=== PATIENT | female | born 1980 | race Caucasian/White ===

== ENCOUNTER 2020-05-25 10:12 | Inpatient (IN) | payer MEDICAID, OTHER, SELFPAY ==
[~2020-05-25] VITALS: Ht 154.9 cm; Wt 67.2 kg
[~2020-05-25 10:12] MED LIST: ALPR1TAB3 PO; CARA1TAB6 PO; NAPR-885 PO; TRIA37.53 PO; VITA200028 PO
[2020-05-25] MEDS ORDERED: ONDANSETRON 4MG/2ML VIAL IV ONE (11:00)
[2020-05-25] MEDS ORDERED: HYDR-4517 PO (11:16)
[2020-05-25] MEDS ORDERED: SUMA100T2 PO (11:16)
[2020-05-25] MEDS ORDERED: NS 1,000 ML IV ONE (11:30)
[2020-05-25 11:32] LABS: BASO # 0.1 10^3/uL (0.0-0.2); BASO % 0.6 % (0.0-1.0); HEMATOCRIT 45.7 % (36.0-47.0); HEMOGLOBIN 14.8 g/dl (12.0-15.5); LYMPH % 9.2 % (24.0-44.0); MEAN CORPUSCULAR HEMOGLOBIN 28.5 pg (27.0-33.0); MEAN CORPUSCULAR HGB CONC 32.4 g/dl (32.0-36.5); MEAN CORPUSCULAR VOLUME 88.1 fl (80.0-96.0); MONO # 0.4 10^3/uL (0.0-0.8); MONO % 1.8 % (0.0-5.0); NEUTROPHILS # 19.5 10^3/uL (1.5-8.5); NEUTROPHILS % 87.6 % (36.0-66.0); PLATELET COUNT, AUTOMATED 604 10^3/uL (150-450); RED BLOOD COUNT 5.19 10^6/uL (4.00-5.40); WHITE BLOOD COUNT 22.3 10^3/uL (4.0-10.0)
[2020-05-25 11:53] LABS: ALT/SGPT 16 U/L (12-78); BILIRUBIN,DIRECT < 0.1 MG/DL (0.0-0.2); BILIRUBIN,TOTAL 0.2 MG/DL (0.2-1.0); BLOOD UREA NITROGEN 8 MG/DL (7-18); CALCIUM LEVEL 9.7 MG/DL (8.5-10.1); CARBON DIOXIDE LEVEL 23 MEQ/L (21-32); CHLORIDE LEVEL 106 MEQ/L (98-107); CREATININE FOR GFR 0.93 MG/DL (0.55-1.30); ETHYL ALCOHOL (ETHANOL) 0.007 % (0.000-0.010); GLOMERULAR FILTRATION RATE > 60.0 (>60); GLUCOSE, FASTING 370 MG/DL (70-100); LIPASE 143 U/L (73-393); POTASSIUM SERUM 4.4 MEQ/L (3.5-5.1); SODIUM LEVEL 142 MEQ/L (136-145); TOTAL PROTEIN 8.8 GM/DL (6.4-8.2)
[2020-05-25 11:54] LABS: HCG, SERUM QUALITATIVE NEGATIVE (NEGATIVE)
[2020-05-25] MEDS ORDERED: GI COCKTAIL 50ML BTL(HYOSCYAMINE/MAALOX/LIDOCAINE VISCOUS)(1:3:1) PO ONE (12:00)
[2020-05-25] MEDS ORDERED: HALOPERIDOL 5MG/ML VIAL (J1630 PER 1) IV ONE (12:30)
[2020-05-25] MEDS ORDERED: ISOVUE-370 76% 100ML VIAL As Ordered ONE (12:42)
--- NOTE | 2020-05-25 13:27 | REP ---
INDICATION: abd pain, gastroparesis, hx pancreatitis. COMPARISON: 10/02/2014 TECHNIQUE: 100 cc Isovue 370. No oral bowel preparatory contrast was administered prior to the exam. FINDINGS: The lung bases are clear. The liver, spleen, pancreas, adrenal glands, and left kidney are unchanged and again seen to be within normal limits. Subtle patchy areas of decreased enhancement are seen in the right kidney. This is seen particularly in the lower pole. There is no hydronephrosis or hydroureter. There is no abnormal perinephric stranding. The abdominal aorta and para-aortic regions are within normal limits. There is no free fluid or free air. Limited evaluation of the bowel loops and the mesenteries show no gross abnormalities. The osseous structures are stable and intact. IMPRESSION: Possible early pyelonephritis on the right as described above. <Electronically signed by Jamal Rincon > 05/25/20 1227
[2020-05-25] MEDS ORDERED: HYDR-4514 PO ×2 (14:26)
[2020-05-25 17:02] LABS: BASO # 0.1 10^3/uL (0.0-0.2); BASO % 0.4 % (0.0-1.0); HEMATOCRIT 41.9 % (36.0-47.0); HEMOGLOBIN 13.6 g/dl (12.0-15.5); LYMPH # 1.6 10^3/uL (1.5-5.0); LYMPH % 7.5 % (24.0-44.0); MEAN CORPUSCULAR HEMOGLOBIN 28.8 pg (27.0-33.0); MEAN CORPUSCULAR HGB CONC 32.5 g/dl (32.0-36.5); MEAN CORPUSCULAR VOLUME 88.8 fl (80.0-96.0); MONO # 0.5 10^3/uL (0.0-0.8); MONO % 2.3 % (0.0-5.0); NEUTROPHILS # 18.9 10^3/uL (1.5-8.5); NEUTROPHILS % 89.3 % (36.0-66.0); PLATELET COUNT, AUTOMATED 513 10^3/uL (150-450); RED BLOOD COUNT 4.72 10^6/uL (4.00-5.40); WHITE BLOOD COUNT 21.2 10^3/uL (4.0-10.0)
[2020-05-25] MEDS ORDERED: CIPROFLOXACIN 400 MG in IV 1 EA IV ONE (17:15)
[2020-05-25] MEDS ORDERED: NS 1,000 ML IV SCH (18:30)
[2020-05-25] MEDS ORDERED: SUMAtriptan SUCCINATE 25 MG TAB PO PRN (18:45)
[2020-05-25] MEDS ORDERED: ONDANSETRON 4MG/2ML VIAL IV PRN (19:00)
--- NOTE | 2020-05-25 19:51 | HPEPDOC ---
General Date of Admission May 25, 2020 Date of Service: May 25, 2020 Primary Care Physician: PALOMO WELLINGTON DO Chief Complaint The patient is a 40-year-old female admitted with a reason for visit of right pyelonephritis Source: Patient History of Present Illness Ms. Aburto is a 40 year old female with migraines and anxiety who initially came to the ED for intractable N/V and found to have right pyelonephritis. Yesterday, she was in good health. She had 2 shots of fireball that evening. This morning, she woke up with intractable nausea and vomiting with diffuse abdominal pain and flank pain. She came to the ED and found to have a leukocytosis of [address] abd/pelvis suggestive of pyelonephritis. ED gave her a dose of IV ciprofloxacin for the pyelonephritis and Zofran and Haldol for the nausea. When I saw her in the ED, she had tried to down a doretha sachin and end vomiting it back up. Denies history of nephrolithiasis. She tells me that she d rinks socially, no history of withdrawal problems. Patient will be admitted for pyelonephritis. Home Medications Scheduled PRN Alprazolam (Alprazolam) 1 Mg Tab, 1 MG PO TID PRN for ANXIETY, (Reported) Hydrocodone/Acetaminophen (Hydrocodone-Acetamin 7.5-325) 1 Each Tablet, 1 TAB PO QID PRN for PAIN, (Reported) Sumatriptan Succinate (Sumatriptan Succinate) 100 Mg Tablet, 100 MG PO DAILY PRN for MIGRAINE, (Reported) may repeat in 2 hours; do not exceed 200 mg in 24 hours Allergies Coded Allergies: No Known Allergies (Unverified , 09/25/14) Past Medical History Medical History 1. Type 1 DM 2. Migraine 3. Anxiety Surgical History 1. Cholecystectomy Family History Denies knowledge of parents PMHx. Denies heart disease, lung disease, or DM in parents Social History * Smoker: current smoker (19 year, 1ppd) Alcohol: other (social) Drugs: denies A-FIB/CHADSVASC A-FIB History Current/History of A-Fib/PAF?: No Review of Systems Constitutional: Denies: Chills, Fever Eyes: Denies: Pain ENT: Denies: Sore Throat Skin: Denies: Rash Pulmonary: Denies: Dyspnea Cardiovascular: Denies: Chest Pain Gastrointestinal: Reports: Nausea, Abdominal Pain Genitourinary: Reports: Other Symptoms (Flank pain) Hematologic: Denies: Bruising Neurological: Denies: Weakness Physical Examination General Exam: Positive: Alert, Cooperative, Mild Distress Eye Exam: Positive: EOMI; Negative: Sclera icteric ENT Exam: Positive: Atraumatic Neck Exam: Positive: Supple Chest Exam: Positive: Clear to auscultation; Negative: Rales, Rhonchi, Wheezing Heart Exam: Positive: Rate Normal, Regular Rhythm Abdomen Exam: Positive: Normal bowel sounds, Soft, Tenderness Extremity Exam: Negative: Edema Skin Exam: Positive: Nl turgor and temperature Neuro Exam: Positive: Cranial Nerves 3-12 NL Psych Exam: Positive: Mental status NL, Mood NL Other physical findings CVA tenderness Vital Signs Vital Signs Date Time Temp Pulse Resp B/P (MAP) Pulse Ox O2 Delivery O2 Flow Rate FiO2 05/25/20 17:07 98.4 76 18 136/73 (94) 100 05/25/20 17:00 Room Air Laboratory Data Labs 24H Laboratory Tests 2 05/25/20 11:18: Immature Granulocyte % (Auto) 0.8, Neutrophils (%) (Auto) 87.6H, Lymphocytes (%) (Auto) 9.2L, Monocytes (%) (Auto) 1.8, Eosinophils (%) (Auto) 0.0, Basophils (%) (Auto) 0.6, Neutrophils # (Auto) 19.5H, Lymphocytes # (Auto) 2.0, Monocytes # (Auto) 0.4, Eosinophils # (Auto) 0.0, Basophils # (Auto) 0.1, Nucleated Red Blood Cells % (auto) 0.0, Anion Gap 13, Glomerular Filtration Rate > 60.0, Calcium Level 9.7, Total Bilirubin 0.2, Direct Bilirubin < 0.1, Aspartate Amino Transf (AST/SGOT) 11, Alanine Aminotransferase (ALT/SGPT) 16, Alkaline Phosphatase 156H, Total Protein 8.8H, Albumin 4.0, Albumin/Globulin Ratio 0.8L, Lipase 143, Human Chorionic Gonadotropin, Qual NEGATIVE, Ethyl Alcohol Level 0.007 05/25/20 14:44: Urine Color STRAW, Urine Appearance CLEAR, Urine pH 6.0, Urine Specific [place] 1.044, Urine Protein NEGATIVE, Urine Glucose (UA) 3+H, Urine Ketones 1+H, Urine Blood 1+H, Urine Nitrite NEGATIVE, Urine Bilirubin NEGATIVE, Urine Urobilinogen 0.2, Urine Leukocyte Esterase NEGATIVE, Urine WBC (Auto) 11H, Urine RBC (Auto) 2, Urine Hyaline Casts (Auto) 0, Urine Bacteria (Auto) 1+H, Urine Squamous Epithelial Cells 1, Urine Mucus (Auto) SMALL, Urine Sperm (Auto) 05/25/20 16:38: Immature Granulocyte % (Auto) 0.5, Neutrophils (%) (Auto) 89.3H, Lymphocytes (%) (Auto) 7.5L, Monocytes (%) (Auto) 2.3, Eosinophils (%) (Auto) 0.0, Basophils (%) (Auto) 0.4, Neutrophils # (Auto) 18.9H, Lymphocytes # (Auto) 1.6, Monocytes # (Auto) 0.5, Eosinophils # (Auto) 0.0, Basophils # (Auto) 0.1, Nucleated Red Blood Cells % (auto) 0.0 05/25/20 18:12: CBC/BMP Laboratory Tests 05/25/20 11:18 05/25/20 16:38 Microbiology Microbiology 05/25/20 Urine Culture, Received Pending Assessment/Plan Ms. Aburto is a 40 year old female with migraines and anxiety who initially came to the ED for intractable N/V and found to have right pyelonephritis. CT abd/pelvis suggestive of right pyelonephritis. No hydronephrosis and no nephrolithiasis reported on CT abd/pelvis. Denies history of nephrolithiasis. Leukocytosis of 22. Will treat her for pyelonephritis Plan / VTE VTE Prophylaxis Ordered?: Yes Plan Plan 1. Right pyelonephritis -Demonstrated on CT abd/pelvis -Right CVA tenderness -Urine culture pending -Empirically on IV ceftriaxone -IVF 2. Intractable N/V -Will start on clear liquid diet and advance as tolerated -PRN Zofran -IVF 3. Type 1 Diabetes Mellitus -Denies DM, but PCP has her measuring fasting blood glucose. Usually in the 300s -Start sliding scale here 4. Anxiety -PRN Ativan 5. Migraines -PRN sumatriptan 6. DVT ppx -Lovenox PALOMO WELLINGTON DO May 25, 2020 19:51
[2020-05-25] MEDS: cefTRIAXone SOD 1 GM in D5W MINI-BAG PLUS 50 ML IV SCH (21:00)
[2020-05-25] MEDS: ANEXSIA, NORCO 7.5MG/325MG TABLET(HYDROCODONE/APAP) PO PRN (22:07)
[2020-05-25 22:13] VITALS: BP 149/88
[2020-05-25] MEDS: ALPRAZolam 0.5 MG TAB PO PRN (22:54)
[2020-05-26] MEDS: ANEXSIA, NORCO 7.5MG/325MG TABLET(HYDROCODONE/APAP) PO PRN ×4 (02:11→22:29)
[2020-05-26 06:00] VITALS: BP 160/91
[2020-05-26 06:09] LABS: HEMOGLOBIN 14.4 g/dl (12.0-15.5); MEAN CORPUSCULAR HEMOGLOBIN 29.7 pg (27.0-33.0); MEAN CORPUSCULAR HGB CONC 33.5 g/dl (32.0-36.5); MEAN CORPUSCULAR VOLUME 88.7 fl (80.0-96.0); PLATELET COUNT, AUTOMATED 579 10^3/uL (150-450); RED BLOOD COUNT 4.85 10^6/uL (4.00-5.40); WHITE BLOOD COUNT 24.9 10^3/uL (4.0-10.0)
[2020-05-26 06:29] LABS: BLOOD UREA NITROGEN 9 MG/DL (7-18); CALCIUM LEVEL 9.3 MG/DL (8.5-10.1); CARBON DIOXIDE LEVEL 24 MEQ/L (21-32); CHLORIDE LEVEL 99 MEQ/L (98-107); GLOMERULAR FILTRATION RATE > 60.0 (>60); GLUCOSE, FASTING 286 MG/DL (70-100); MAGNESIUM LEVEL 1.8 MG/DL (1.8-2.4); POTASSIUM SERUM 4.1 MEQ/L (3.5-5.1); SODIUM LEVEL 135 MEQ/L (136-145)
[2020-05-26] MEDS: ALPRAZolam 0.5 MG TAB PO PRN ×2 (07:36→20:34)
[2020-05-26] MEDS: ENOXAPARIN 40MG/0.4ML SYRINGE (J1650 PER 10MG) SC SCH (07:36)
[2020-05-26] MEDS ORDERED: GLUCAGON INJ 1MG VIAL SC PRN (07:45)
[2020-05-26] MEDS ORDERED: DEXTROSE 50% 50 ML SYRINGE IV PRN (07:45)
[2020-05-26] MEDS ORDERED: GLUCOSE 4GM CHEW TABLET PO PRN (07:45)
[2020-05-26] MEDS: HumaLOG INSULIN (NovoLOG) PER UNIT SC SCH ×4 (08:39→20:23)
[2020-05-26] MEDS ORDERED: FOLIC ACID 1 MG TAB PO SCH (09:00)
[2020-05-26] MEDS ORDERED: THIAMINE 100 MG TAB PO SCH (09:00)
[2020-05-26 11:24] LABS: HEMOGLOBIN A1c 9.8 %
--- NOTE | 2020-05-26 11:52 | IPNPDOC ---
Date Seen The patient was seen on 05/26/20. Progress Note SUBJECTIVE: Ms. Aburto was seen and examined at the bedside this morning. She is quite tearful and tells me that she is stressed out. She feels like she has "a lot going on." She denies any nausea or vomiting at the time of my exam, nor any back pain or abdominal pain. She states that she is unaware of any previous diagnosis of diabetes and has not been on any medication for it but has been checking her blood sugars at home. She asks for a regular diet as she has been able to keep food down. OBJECTIVE VITAL SIGNS: see below GENERAL: alert and oriented, in no apparent distress, anxious and tearful but conversant in full sentences. HEENT: PERRL, EOMI, Oral mucous membranes are moist without lesions. NECK: The patient has no noted JVD. No adenopathy is appreciated. No thyromegaly CHEST/LUNGS: Lungs are clear bilaterally without rhonchi, rales, or wheezes. There is no subcutaneous air appreciated. There is no tenderness to the chest wall. HEART:Regular rate and rhythm. No murmurs, rubs, or gallops are appreciated. Distal pulses are 2+. No carotid bruits appreciated. ABDOMEN: Soft, nontender, and nondistended. Bowel sounds are positive. No organomegaly is appreciated. No masses are appreciated. There are no peritoneal signs. There is no Campbell sign. BACK: No CVA tenderness is appreciated EXTREMITIES: No peripheral edema. There is no focal long bone tenderness or deformity. SKIN: The patients skin is warm and dry, without rashes or lesions. PSYCHIATRIC: AAO x 3, normal mood/affect NEUROLOGIC: The patient has 5/5 strength to the upper and lower extremities bilaterally. Sensation is intact throughout. Deep tendon reflexes are 2+ in all four extremities. There are no deficits to the cranial nerves. LABORATORY DATA, IMAGING STUDIES, MICROBIOLOGY: Please see below. CT ABD/PELVIS on 05/25/20: FINDINGS: The lung bases are clear. The liver, spleen, pancreas, adrenal glands, and left kidney are unchanged and again seen to be within normal limits. Subtle patchy areas of decreased enhancement are seen in the right kidney. This is seen particularly in the lower pole. There is no hydronephrosis or hydroureter. There is no abnormal perinephric stranding. The abdominal aorta and para-aortic regions are within normal limits. There is no free fluid or free air. Limited evaluation of the bowel loops and the mesenteries show no gross abnormalities. The osseous structures are stable and intact. IMPRESSION: Possible early pyelonephritis on the right as described above. DVT prophylaxis ordered?: Lovenox ASSESSMENT AND PLAN: This is a 40 YO F with ?Type 1 DM, history of migraines and anxiety who presented to the ED with nausea/vomiting found to have pyelon ephritis. She is currently undergoing IV antibiotic therapy and nausea/vomiting have improved. PROBLEMS: 1. Pyelonephritis: -CT abd/pelvis demonstrates areas of decreased enhancement seen in the R kidney concerning for early pyelonephritis -WBC 24.9 today, up from 21.2 yesterday; the patient is no longer complaining of CVA tenderness -Continue empiric IV Rocephin -Pending urine culture, will narrow abx accordingly 2. Nausea/vomiting on admission: -Appears to have resolved. I upgraded her to consistent carbohydrate diet as tolerated -No electrolyte abnormalities today -Zofran PRN 3. Diabetes, unsure if Type 1 or Type 2: -The patient reports that she has been told she has elevated blood sugars and her primary care physician told her to check her blood sugar with glucometer at home every morning. -Hemoglobin A1c found to be 9.8%. Patient will likely need oral anti-diabetic medications on discharge -For now, will keep patient on sliding scale insulin with hypoglycemic protocol -Pending SUZANNA-65 and Islet Cell Ab. Will likely need outpatient follow-up 4. History of migraines: -Continue Sumatriptan 5. History of anxiety: -Continue Alprazolam 1mg TID for now DISPOSITION: Pending improvement in white blood cell count, urine culture result VS, I&O, 24H, [facility] Vital Signs/I&O Vital Signs Date Time Temp Pulse Resp B/P (MAP) Pulse Ox O2 Delivery O2 Flow Rate FiO2 05/26/20 10:38 18 05/26/20 06:00 97.9 62 160/91 (114) 93 Room Air I&O- Last 24 Hours up to 6 AM 05/26/20 06:00 Intake Total 4870 ml Output Total 1400 ml Balance 3470 ml Laboratory Data 24H LABS Laboratory Tests 2 05/25/20 14:44: Urine Color STRAW, Urine Appearance CLEAR, Urine pH 6.0, Urine Specific [place] 1.044, Urine Protein NEGATIVE, Urine Glucose (UA) 3+H, Urine Ketones 1+H, Urine Blood 1+H, Urine Nitrite NEGATIVE, Urine Bilirubin NEGATIVE, Urine Urobilinogen 0.2, Urine Leukocyte Esterase NEGATIVE, Urine WBC (Auto) 11H, Urine RBC (Auto) 2, Urine Hyaline Casts (Auto) 0, Urine Bacteria (Auto) 1+H, Urine Squamous Epithelial Cells 1, Urine Mucus (Auto) SMALL, Urine Sperm (Auto) 05/25/20 16:38: Immature Granulocyte % (Auto) 0.5, Neutrophils (%) (Auto) 89.3H, Lymphocytes (%) (Auto) 7.5L, Monocytes (%) (Auto) 2.3, Eosinophils (%) (Auto) 0.0, Basophils (%) (Auto) 0.4, Neutrophils # (Auto) 18.9H, Lymphocytes # (Auto) 1.6, Monocytes # (Auto) 0.5, Eosinophils # (Auto) 0.0, Basophils # (Auto) 0.1, Nucleated Red Bl ood Cells % (auto) 0.0 05/25/20 18:12: Coronavirus (COVID-19)(PCR) NEGATIVE 05/26/20 05:40: Nucleated Red Blood Cells % (auto) 0.0, Anion Gap 12, Glomerular Filtration Rate > 60.0, Estimated Mean Plasma Glucose 235H, Hemoglobin A1c 9.8, Calcium Level 9.3, Magnesium Level 1.8 05/26/20 11:16: Lab Scanned Report Miscellaneous Lab CBC/BMP Laboratory Tests 05/25/20 16:38 05/26/20 05:40 Microbiology Microbiology 05/25/20 Urine Culture, Received Pending GME ATTESTATION GME ATTESTATION My faculty preceptor for this patient encounter was physically present during the encounter and was fully available. All aspects of the patient interview, examination, medical decision making process, and medical care plan development were reviewed and approved by the faculty preceptor. The faculty preceptor is aware and concurs with the plan as stated in the body of this note and will attest to such by his/her cosignature. ATTENDING NOTE I, Manoj Wellington, saw and evaluated the patient independently from the resident. I have discussed the case with the resident and reviewed the document. I agree with the findings and the plan of care as documented in the resident's note. MARY JANE MCKEON MD May 26, 2020 11:52 MANOJ WELLINGTON DO May 26, 2020 19:15
[2020-05-26 13:34] VITALS: BP_SYST 131; BP_SYST 139; BP_DIAS 101; BP_DIAS 81
[2020-05-26] MEDS: cefTRIAXone SOD 1 GM in D5W MINI-BAG PLUS 50 ML IV SCH (20:33)
[2020-05-26 22:00] VITALS: BP 135/95
[2020-05-27] MEDS: ANEXSIA, NORCO 7.5MG/325MG TABLET(HYDROCODONE/APAP) PO PRN ×4 (04:11→23:30)
[2020-05-27 06:00] VITALS: BP 135/93
[2020-05-27 06:08] LABS: HEMATOCRIT 39.8 % (36.0-47.0); HEMOGLOBIN 12.9 g/dl (12.0-15.5); MEAN CORPUSCULAR HGB CONC 32.4 g/dl (32.0-36.5); MEAN CORPUSCULAR VOLUME 89.4 fl (80.0-96.0); RED BLOOD COUNT 4.45 10^6/uL (4.00-5.40); WHITE BLOOD COUNT 14.4 10^3/uL (4.0-10.0)
[2020-05-27 06:09] LABS: BASO # 0.1 10^3/uL (0.0-0.2); BASO % 0.6 % (0.0-1.0); EOS # 0.2 10^3/uL (0.0-0.5); EOS % 1.3 % (0.0-3.0); LYMPH # 3.4 10^3/uL (1.5-5.0); LYMPH % 23.4 % (24.0-44.0); MONO % 7.2 % (0.0-5.0); NEUTROPHILS # 9.6 10^3/uL (1.5-8.5); PLATELET COUNT, AUTOMATED 399 10^3/uL (150-450)
[2020-05-27 06:20] LABS: BLOOD UREA NITROGEN 11 MG/DL (7-18); CALCIUM LEVEL 8.7 MG/DL (8.5-10.1); CARBON DIOXIDE LEVEL 27 MEQ/L (21-32); CHLORIDE LEVEL 99 MEQ/L (98-107); GLOMERULAR FILTRATION RATE > 60.0 (>60); GLUCOSE, FASTING 324 MG/DL (70-100); POTASSIUM SERUM 3.5 MEQ/L (3.5-5.1); SODIUM LEVEL 133 MEQ/L (136-145)
[2020-05-27] MEDS: ALPRAZolam 0.5 MG TAB PO PRN ×3 (08:23→23:29)
[2020-05-27] MEDS: HumaLOG INSULIN (NovoLOG) PER UNIT SC SCH ×4 (08:24→20:38)
[2020-05-27] MEDS: ENOXAPARIN 40MG/0.4ML SYRINGE (J1650 PER 10MG) SC SCH (08:25)
[2020-05-27] MEDS: PANTOPRAZOLE 40MG VIAL (C9113 PER 1) IV SCH (08:25)
[2020-05-27] MEDS: glipiZIDE (GLUCOTROL) 5 MG TAB PO SCH ×2 (10:34→17:24)
[2020-05-27 14:00] VITALS: BP 133/86
--- NOTE | 2020-05-27 16:16 | IPNPDOC ---
Text Note Date of Service The patient was seen on 05/27/20. NOTE SUBJECTIVE: Paige denied any abdominal pain , nausea or vomiting, She does have some low back pain which she attributes to laying in bed all day long. No fever or chills, no dysuria. urine culture still not available. Wants to go home and becoming anxious about it. OBJECTIVE VITAL SIGNS: see below GENERAL: alert and oriented, in no apparent distress HEENT: PERRL, EOMI, Oral mucous membranes are moist without lesions. NECK: The patient has no noted JVD. No adenopathy is appreciated. No thyromegaly CHEST/LUNGS: Lungs are clear bilaterally without rhonchi, rales, or wheezes. There is no subcutaneous air appreciated. There is no tenderness to the chest wall. HEART:Regular rate and rhythm. No murmurs, rubs, or gallops are appreciated. Distal pulses are 2+. No carotid bruits appreciated. ABDOMEN: Soft, nontender, and nondistended. Bowel sounds are positive. No orga nomegaly is appreciated. No masses are appreciated. There are no peritoneal signs. BACK: No CVA tenderness is appreciated EXTREMITIES: No peripheral edema. SKIN: The patients skin is warm and dry, without rashes or lesions. PSYCHIATRIC: AAO x 3, normal mood/affect LABORATORY DATA, IMAGING STUDIES, MICROBIOLOGY: Please see below. CT ABD/PELVIS on 05/25/20: FINDINGS: The lung bases are clear. The liver, spleen, pancreas, adrenal glands, and left kidney are unchanged and again seen to be within normal limits. Subtle patchy areas of decreased enhancement are seen in the right kidney. This is seen particularly in the lower pole. There is no hydronephrosis or hydroureter. There is no abnormal perinephric stranding. The abdominal aorta and para-aortic regions are within normal limits. There is no free fluid or free air. Limited evaluation of the bowel loops and the mesenteries show no gross abnormalities. The osseous structures are stable and intact. IMPRESSION: Possible early pyelonephritis on the right as described above. ASSESSMENT AND PLAN: This is a 40 YO F with ?Type 1 DM, history of migraines and anxiety who presented to the ED with nausea/vomiting found to have pyelone phritis. She is currently undergoing IV antibiotic therapy and nausea/vomiting have improved. Pyelonephritis: CT abd/pelvis demonstrates areas of decreased enhancement seen in the R kidney concerning for early pyelonephritis Continue empiric IV Rocephin Pending urine culture, will narrow abx accordingly Diabetes, unsure if Type 1 or Type 2: Hemoglobin A1c found to be 9.8%. Will start on glipizide. will keep patient on sliding scale insulin with hypoglycemic protocol Pending SUZANNA-65 and Islet Cell Ab. Will likely need outpatient follow-up History of migraines: Continue Sumatriptan History of anxiety: Continue Alprazolam 1mg TID for now DISPOSITION: home in 24 hours after urine culture is available. VS,Fishbone, I+O VS, Fishbone, I+O Laboratory Tests 05/27/20 05:37 Vital Signs Date Time Temp Pulse Resp B/P (MAP) Pulse Ox O2 Delivery O2 Flow Rate FiO2 05/27/20 14:00 98.3 60 18 133/86 (102) 96 Room Air I&O- Last 24 Hours up to 6 AM 05/27/20 06:00 Intake Total 2705 ml Output Total 1750 ml Balance 955 ml YOKASTA SUMNER MD May 27, 2020 16:16
[2020-05-27] MEDS: RAMELTEON 8 MG TAB (ROZEREM) PO SCH (20:42)
[2020-05-27] MEDS: cefTRIAXone SOD 1 GM in D5W MINI-BAG PLUS 50 ML IV SCH (20:42)
[2020-05-27 22:00] VITALS: BP 129/79
[2020-05-28 05:58] LABS: BASO # 0.1 10^3/uL (0.0-0.2); BASO % 0.6 % (0.0-1.0); EOS # 0.2 10^3/uL (0.0-0.5); EOS % 1.8 % (0.0-3.0); HEMATOCRIT 39.3 % (36.0-47.0); HEMOGLOBIN 12.8 g/dl (12.0-15.5); LYMPH # 3.6 10^3/uL (1.5-5.0); MEAN CORPUSCULAR HGB CONC 32.6 g/dl (32.0-36.5); MEAN CORPUSCULAR VOLUME 88.9 fl (80.0-96.0); MONO # 0.8 10^3/uL (0.0-0.8); MONO % 6.3 % (0.0-5.0); NEUTROPHILS # 8.1 10^3/uL (1.5-8.5); NEUTROPHILS % 62.8 % (36.0-66.0); PLATELET COUNT, AUTOMATED 388 10^3/uL (150-450); RED BLOOD COUNT 4.42 10^6/uL (4.00-5.40); WHITE BLOOD COUNT 12.9 10^3/uL (4.0-10.0)
[2020-05-28 06:00] VITALS: BP 132/91
[2020-05-28 06:16] LABS: BLOOD UREA NITROGEN 16 MG/DL (7-18); CALCIUM LEVEL 8.7 MG/DL (8.5-10.1); CARBON DIOXIDE LEVEL 26 MEQ/L (21-32); CHLORIDE LEVEL 102 MEQ/L (98-107); CREATININE FOR GFR 0.76 MG/DL (0.55-1.30); GLOMERULAR FILTRATION RATE > 60.0 (>60); GLUCOSE, FASTING 299 MG/DL (70-100); POTASSIUM SERUM 3.5 MEQ/L (3.5-5.1); SODIUM LEVEL 133 MEQ/L (136-145)
[2020-05-28] MEDS: PANTOPRAZOLE 40MG VIAL (C9113 PER 1) IV SCH (08:50)
[2020-05-28] MEDS: ERTAPENEM SODIUM 1 GM in NS MINI-BAG PLUS 50 ML IV SCH (08:50)
[2020-05-28] MEDS: ENOXAPARIN 40MG/0.4ML SYRINGE (J1650 PER 10MG) SC SCH (08:51)
[2020-05-28] MEDS: HumaLOG INSULIN (NovoLOG) PER UNIT SC SCH ×4 (08:53→20:09)
[2020-05-28] MEDS: ALPRAZolam 0.5 MG TAB PO PRN ×2 (08:54→16:15)
[2020-05-28] MEDS: glipiZIDE (GLUCOTROL) 5 MG TAB PO SCH ×2 (09:00→17:35)
[2020-05-28] MEDS: ANEXSIA, NORCO 7.5MG/325MG TABLET(HYDROCODONE/APAP) PO PRN ×3 (09:01→22:46)
--- NOTE | 2020-05-28 10:08 | IPNPDOC ---
Text Note Date of Service The patient was seen on 05/28/20. NOTE SUBJECTIVE: No complaints this morning. wants to go home. Unfortunately she is growing ESBL Ecoli in urine. She does not have any active insurance at present. OBJECTIVE VITAL SIGNS: see below GENERAL: alert and oriented, in no apparent distress HEENT: PERRL, EOMI, Oral mucous membranes are moist without lesions. NECK: The patient has no noted JVD. No adenopathy is appreciated. No thyromegaly CHEST/LUNGS: Lungs are clear bilaterally without rhonchi, rales, or wheezes. Th ere is no subcutaneous air appreciated. There is no tenderness to the chest wall. HEART:Regular rate and rhythm. No murmurs, rubs, or gallops are appreciated. Distal pulses are 2+. No carotid bruits appreciated. ABDOMEN: Soft, nontender, and nondistended. Bowel sounds are positive. No organomegaly is appreciated. No masses are appreciated. There are no peritoneal signs. BACK: No CVA tenderness is appreciated EXTREMITIES: No peripheral edema. SKIN: The patients skin is warm and dry, without rashes or lesions. PSYCHIATRIC: AAO x 3, normal mood/affect LABORATORY DATA, IMAGING STUDIES, MICROBIOLOGY: Please see below. ASSESSMENT AND PLAN: This is a 40 YO F with ?Type 1 DM, history of migraines and anxiety who presented to the ED with nausea/vomiting found to have pyelonephritis. She is currently undergoing IV antibiotic therapy and nausea/vomiting have improved. Pyelonephritis: CT abd/pelvis demonstrates areas of decreased enhancement seen in the R kidney concerning for early pyelonephritis Urine culture ESBL ecoli will start on Ertapenem Diabetes, unsure if Type 1 or Type 2: Hemoglobin A1c found to be 9.8%. Will start on glipizide. will keep patient on sliding scale insulin with hypoglycemic protocol Pending SUZANNA-65 and Islet Cell Ab. Will need outpatient follow-up History of migraines: Continue Sumatriptan Anxiety: Continue Alprazolam 1mg TID for now Insomnia Rozerem. VS,Fishbone, I+O VS, Fishbone, I+O Laboratory Tests 05/28/20 05:34 Vital Signs Date Time Temp Pulse Resp B/P (MAP) Pulse Ox O2 Delivery O2 Flow Rate FiO2 05/28/20 09:01 17 05/28/20 06:00 97.6 61 132/91 (105) 97 Room Air I&O- Last 24 Hours up to 6 AM 05/28/20 05:59 Intake Total 2180 ml Output Total 1115 ml Balance 1065 ml YOKASTA SUMNER MD May 28, 2020 10:07
[2020-05-28 14:00] VITALS: BP 112/72
[2020-05-28] MEDS ORDERED: LIDOCAINE 1% MDV 20ML VIAL As Ordered ONE (14:16)
[2020-05-28] MEDS: RAMELTEON 8 MG TAB (ROZEREM) PO SCH (20:09)
[2020-05-28] MEDS ORDERED: SODIUM CHLORIDE 0.9% INJ 10 ML SYR IV PRN (20:15)
[2020-05-28 22:00] VITALS: BP 116/74
[2020-05-29 05:51] LABS: BASO # 0.1 10^3/uL (0.0-0.2); BASO % 0.6 % (0.0-1.0); EOS # 0.3 10^3/uL (0.0-0.5); EOS % 2.6 % (0.0-3.0); HEMATOCRIT 40.5 % (36.0-47.0); HEMOGLOBIN 13.2 g/dl (12.0-15.5); LYMPH # 3.7 10^3/uL (1.5-5.0); LYMPH % 32.2 % (24.0-44.0); MEAN CORPUSCULAR HEMOGLOBIN 29.1 pg (27.0-33.0); MEAN CORPUSCULAR HGB CONC 32.6 g/dl (32.0-36.5); MEAN CORPUSCULAR VOLUME 89.2 fl (80.0-96.0); MONO # 0.7 10^3/uL (0.0-0.8); MONO % 6.3 % (0.0-5.0); NEUTROPHILS # 6.7 10^3/uL (1.5-8.5); PLATELET COUNT, AUTOMATED 383 10^3/uL (150-450); RED BLOOD COUNT 4.54 10^6/uL (4.00-5.40); WHITE BLOOD COUNT 11.5 10^3/uL (4.0-10.0)
[2020-05-29 06:00] VITALS: BP 135/80
[2020-05-29] MEDS ORDERED: SODIUM CHLORIDE 0.9% INJ 10 ML SYR IV SCH (06:00)
[2020-05-29 06:10] LABS: BLOOD UREA NITROGEN 12 MG/DL (7-18); CALCIUM LEVEL 9.1 MG/DL (8.5-10.1); CARBON DIOXIDE LEVEL 26 MEQ/L (21-32); CHLORIDE LEVEL 105 MEQ/L (98-107); CREATININE FOR GFR 0.75 MG/DL (0.55-1.30); GLOMERULAR FILTRATION RATE > 60.0 (>60); GLUCOSE, FASTING 239 MG/DL (70-100); POTASSIUM SERUM 4.1 MEQ/L (3.5-5.1); SODIUM LEVEL 138 MEQ/L (136-145)
[2020-05-29] MEDS: ALPRAZolam 0.5 MG TAB PO PRN (06:31)
[2020-05-29] MEDS: ANEXSIA, NORCO 7.5MG/325MG TABLET(HYDROCODONE/APAP) PO PRN ×2 (06:31→12:36)
[2020-05-29] MEDS: glipiZIDE (GLUCOTROL) 5 MG TAB PO SCH (08:10)
[2020-05-29] MEDS: HumaLOG INSULIN (NovoLOG) PER UNIT SC SCH ×2 (08:11→11:14)
[2020-05-29] MEDS: ENOXAPARIN 40MG/0.4ML SYRINGE (J1650 PER 10MG) SC SCH (08:11)
[2020-05-29] MEDS: PANTOPRAZOLE 40MG VIAL (C9113 PER 1) IV SCH (08:12)
[2020-05-29] MEDS: ERTAPENEM SODIUM 1 GM in NS MINI-BAG PLUS 50 ML IV SCH (08:12)
[2020-05-29] MEDS ORDERED: GLIP5TAB8 PO (08:32)
--- NOTE | 2020-05-29 11:50 | DS.PDOC ---
Discharge Summary General Date of Admission May 25, 2020 at 18:21 Date of Discharge 05/29/20 Discharge Summary PROCEDURES PERFORMED DURING STAY: [None]. DISCHARGE DIAGNOSES: Acute Pyelonephritis ESBL Ecoli Uncontrolled Diabetes Migraine Anxiety COMPLICATIONS/CHIEF COMPLAINT: Diabetes Type 1 Uncontrolled Pyelonephrisitis. HOSPITAL COURSE: This is a 40 YO F with Diabetes, history of migraines and anx iety who presented to the ED with nausea/vomiting found to have pyelonephritis. Pyelonephritis: CT abd/pelvis demonstrates areas of decreased enhancement seen in the R kidney concerning for early pyelonephritis Urine culture ESBL ecoli Ertapenem x 8 days total. Home antibiotic therapy set up to finish the course Diabetes, unsure if Type 1 or Type 2: Hemoglobin A1c found to be 9.8%. started on glipizide. Pending SUZANNA-65 and Islet Cell Ab. Will need outpatient follow-up Follow up with PMD History of migraines: Continue Sumatriptan Anxiety: Continue Alprazolam 1mg TID for now DISCHARGE MEDICATIONS: Please see below. ALLERGIES: Please see below. PHYSICAL EXAMINATION ON DISCHARGE: VITAL SIGNS: Please see below. GENERAL: alert and oriented, in no apparent distress HEENT: PERRL, EOMI, Oral mucous membranes are moist without lesions. NECK: The patient has no noted JVD. No adenopathy is appreciated. No thyromegaly CHEST/LUNGS: Lungs are clear bilaterally without rhonchi, rales, or wheezes. There is no subcutaneous air appreciated. There is no tenderness to the chest wall. HEART:Regular rate and rhythm. No murmurs, rubs, or gallops are appreciated. Distal pulses are 2+. No carotid bruits appreciated. ABDOMEN: Soft, nontender, and nondistended. Bowel sounds are positive. No organ omegaly is appreciated. No masses are appreciated. There are no peritoneal signs. BACK: No CVA tenderness is appreciated EXTREMITIES: No peripheral edema. SKIN: The patients skin is warm and dry, without rashes or lesions. PSYCHIATRIC: AAO x 3, normal mood/affect LABORATORY DATA: Please see below. ACTIVITY: [As tolerated]. DIET: Carb consistent DISCHARGE PLAN: Home DISPOSITION: . DISCHARGE INSTRUCTIONS: Follow up with New PMD set up Check FS daily Ertapenem 1 gm IV daily x 6 days DISCHARGE CONDITION: [Stable]. TIME SPENT ON DISCHARGE: 35 minutes. Vital Signs/I&Os Vital Signs Date Time Temp Pulse Resp B/P (MAP) Pulse Ox O2 Delivery O2 Flow Rate FiO2 05/29/20 08:09 16 05/29/20 06:31 Room Air 05/29/20 06:00 97.6 54 135/80 (98) 97 I&O- Last 24 Hours up to 6 AM 05/29/20 06:00 Intake Total 1575 ml Output Total 1050 ml Balance 525 ml Laboratory Data Labs 24H Laboratory Tests 2 05/28/20 17:26: Bedside Glucose (Misc Panel) 174H 05/28/20 19:59: Bedside Glucose (Misc Panel) 201H 05/29/20 05:28: Immature Granulocyte % (Auto) 0.3, Neutrophils (%) (Auto) 58.0, Lymphocytes (%) (Auto) 32.2, Monocytes (%) (Auto) 6.3H, Eosinophils (%) (Auto) 2.6, Basophils (%) (Auto) 0.6, Neutrophils # (Auto) 6.7, Lymphocytes # (Auto) 3.7, Monocytes # (Auto) 0.7, Eosinophils # (Auto) 0.3, Basophils # (Auto) 0.1, Nucleated Red Blood Cells % (auto) 0.0, Anion Gap 7L, Glomerular Filtration Rate > 60.0, Calcium Level 9.1 CBC/BMP Laboratory Tests 05/29/20 05:28 FSBS Laboratory Tests Test 05/28/20 17:26 05/28/20 19:59 Range/Units Bedside Glucose (Misc Panel) 174 201 70-105 MG/DL Microbiology Microbiology 05/25/20 Urine Culture - Final, Complete E.coli Esbl Discharge Medications Scheduled Glipizide (Glipizide) 5 Mg Tablet, 5 MG PO BID@0730,1730 Scheduled PRN Alprazolam (Alprazolam) 1 Mg Tab, 1 MG PO BID PRN for ANXIETY, (Reported) Hydrocodone/Acetaminophen (Hydrocodone-Acetamin 7.5-325) 1 Each Tablet, 1 TAB PO QID PRN for PAIN, (Reported) Sumatriptan Succinate (Sumatriptan Succinate) 100 Mg Tablet, 100 MG PO DAILY PRN for MIGRAINE, (Reported) may repeat in 2 hours; do not exceed 200 mg in 24 hours Allergies Coded Allergies: No Known Allergies (Unverified , 09/25/14) YOKASTA SUMNER MD May 29, 2020 11:50
--- NOTE | 2020-05-30 16:28 | REP ---
PROCEDURE NAME: MIDLINE INSERTION W/ SITERITE CLINICAL INFORMATION: Home iv antiobitocs. COMPARISON: None. PROCEDURE DESCRIPTION: The procedure was performed by KIMBERLEY Dee, under the direct supervision of Dr. León. The risks and benefits of the procedure were explained to the patient and an informed consent was obtained both verbally and written. Directly prior to the start of the procedure a formal time-out was completed in the procedure room. The left basilic vein was localized using ultrasound guidance. The skin was prepped and draped in sterile fashion. One mL of 1% lidocaine 10 mg/mL was used as a local anesthetic. Using ultrasound guidance the left basilic vein was cannulated, and a 0.018 guidewire was inserted. The needle was removed and a 4.5 Kazakh dilator and peel-away sheath was inserted over the guidewire. A 4.5 Kazakh single lumen catheter was cut to a length of 12 cm. The dilator was removed and the catheter was inserted over the guidewire. The peel-away sheath was removed and the catheter was flushed with heparinized saline as per hospital protocol. The catheter was affixed to the skin and a sterile dressing was applied. The patient tolerated the procedure well and there were no immediate complications. CONCLUSION: Mid line insertion into the left basilic vein. <Electronically signed by Amanda Lancaster > 05/29/20 0293 <Electronically signed by Carlitos León > 05/30/20 [id number]
== END 2020-05-29 13:30 | disposition home health service (06) | DRG 463 ==
LOC: EDBD 10:12 → M ED 10:12 → M ED INP 18:21 → EEVIPCON 18:21 → ENRESERV 20:59 → M MSPAV 22:14
PROVIDERS: ADMIT Internal Medicine; ATTEND Internal Medicine Nephrology
PROC: 02HV33Z Insertion of Infusion Device into Superior Vena Cava, Percutaneous Approach (ICD-10-PCS; principal; 2020-05-28 14:30)
DX: N10 Acute pyelonephritis (principal); B96.29 Other Escherichia coli [E. coli] as the cause of diseases classified elsewhere; F41.9 Anxiety disorder, unspecified; E10.9 Type 1 diabetes mellitus without complications; F17.200 Nicotine dependence, unspecified, uncomplicated; R11.2 Nausea with vomiting, unspecified; G43.909 Migraine, unspecified, not intractable, without status migrainosus; Z79.899 Other long term (current) drug therapy; G47.00 Insomnia, unspecified

== ENCOUNTER 2020-08-26 14:25 | Emergency (ER) | payer OTHER, MEDICAID ==
[~2020-08-26] VITALS: Ht 154.9 cm; Wt 68.2 kg
[~2020-08-26 14:25] MED LIST changes: +GLIP5TAB8 PO; +HYDR-4514 PO; +HYDR-4517 PO; +SUMA100T2 PO
[2020-08-26] MEDS ORDERED: PIOG1TAB36 (14:35)
[2020-08-26] MEDS ORDERED: NS 1,000 ML IV ONE (14:45)
[2020-08-26] MEDS ORDERED: HALOPERIDOL 5MG/ML VIAL (J1630 PER 1) IV ONE ×2 (14:45→15:15)
[2020-08-26 14:55] LABS: VENOUS HCO3 20.7 MEQ/L (23.0-27.0); VENOUS O2 SATURATION 96.2 % (60.0-80.0); VENOUS PARTIAL PRESSURE CO2 22.8 mmHg (38.0-50.0); VENOUS PARTIAL PRESSURE O2 66.2 mmHg (30.0-50.0); VENOUS PH 7.576 UNITS (7.330-7.430); VENOUS STANDARD HCO3 25.3 MEQ/L; VENOUS TOTAL CO2 21.4 MEQ/L (24.0-28.0)
[2020-08-26 14:58] LABS: BASO # 0.1 10^3/uL (0.0-0.2); BASO % 0.6 % (0.0-1.0); EOS # 0.2 10^3/uL (0.0-0.5); EOS % 0.8 % (0.0-3.0); HEMATOCRIT 45.4 % (36.0-47.0); HEMOGLOBIN 15.3 g/dl (12.0-15.5); LYMPH # 3.4 10^3/uL (1.5-5.0); LYMPH % 15.8 % (24.0-44.0); MEAN CORPUSCULAR HEMOGLOBIN 27.3 pg (27.0-33.0); MEAN CORPUSCULAR HGB CONC 33.7 g/dl (32.0-36.5); MEAN CORPUSCULAR VOLUME 81.1 fl (80.0-96.0); MONO # 0.6 10^3/uL (0.0-0.8); MONO % 2.7 % (2.0-8.0); NEUTROPHILS # 17.3 10^3/uL (1.5-8.5); NEUTROPHILS % 79.7 % (36.0-66.0); PLATELET COUNT, AUTOMATED 488 10^3/uL (150-450); WHITE BLOOD COUNT 21.7 10^3/uL (4.0-10.0)
[2020-08-26] MEDS ORDERED: KETOROLAC 30 MG/ML 1ML VIAL IV ONE (15:15)
[2020-08-26 15:37] LABS: ALBUMIN 4.5 GM/DL (3.2-5.2); ALT/SGPT 17 U/L (12-78); BILIRUBIN,DIRECT < 0.1 MG/DL (0.0-0.2); BILIRUBIN,TOTAL 0.2 MG/DL (0.2-1.0); CK-MB VALUE MASS < 1.0 NG/ML (<3.6); CPK CREATINE PHOSPHOKINASE 34 U/L (26-192); LIPASE 161 U/L (73-393); MAGNESIUM LEVEL 1.7 MG/DL (1.8-2.4); MB/CK RELATIVE INDEX 2.94 (< OR =4); TOTAL PROTEIN 8.6 GM/DL (6.4-8.2); TROPONIN I < 0.02 NG/ML (< 0.10)
[2020-08-26 16:25] LABS: OSMOLALITY SERUM 313 MOSM/KG (275-295)
--- OUTSIDE RECORDS SUMMARY | 2020-08-26 17:05 | CCD ---
Author Author [facility] Organization [facility] Address Unknown Phone Unavailable Care Team Providers Care Global Director Air And Climate Change Name Role Phone Kalyan Blackburn Unavailable PROBLEMS Type Condition ICD9-CM Code [id number] Code Onset Dates Condition S tatus SNOMED Code Notes Problem Type 2 diabetes mellitus wit hout complication, without long-term current use of insulin E11.9 Active 542963058 Problem Migraine without aura and without status migrain osus, not intractable G43.009 Active 913029911 Problem Tobacco use disorder 305.1 Active 76567560 Problem PCOS (polycystic ovarian syndrome) 256.4 Activ e 62087964 Problem Anxiety F41.9 Active 33804027 Problem Other chronic pain G89.29 Active 76216879 ALLERGIES No Known Allergies ENCOUNTERS from 1982 to 2020-07-25 Encounter Location Date Provider Diagnosis [address] [address] Jul, Kalyan Blackburn Anxiety F41.9 IMMUNIZATIONS No Information SOCIAL HISTORY Tobacco Use: Social History Observation Description Date Details (start date - stop date) Current Smoker Sex Assigned At : Social History Observation Description Sex Assigned At Unknown Alcohol Screening: Question Answer Notes Did you have a drink containing alcohol in the past year? No Points 0 Interpretation Negative Tobacco Use: Question Answer Notes Are you a: current smoker How many cigarettes a day do you smoke? 11-20 REASON FOR REFERRAL No Information VITAL SIGNS No information MEDICATIONS Medication SIG (Take, Route, Frequency, Duration) Notes Start Da te End Date Status Hydrocodone-Acetaminophen 7.5-325 MG 1 tablet as neede d Orally every 6 hrs for 28 days Jun, Active Sumatriptan Succinate 100 MG 1 tablet at least 2 hours between doses as needed Orally Twice a day Max monthly doses: 20 for 30 days Active Fluconazole 150 MG 1 tablet Orally once for 1 days Jul, Active Pioglitazone HCl 15 MG 1 tablet Orally Once a day for 30 day(s) Jul, Active GlipiZIDE 5 MG 1 tablet 30 minutes before breakfast Orally BID Not-Taking Alprazolam 1 MG 1 tablet Orally Twice a day PRN for 28 days Active PROCEDURES No Information RESULTS No Results REASON FOR VISIT rx MEDICAL (GENERAL) HISTORY Type Description Date Medical History PCOS Medical History Anxiety Medical History Htn Medical History back pain Medical History hx of pancreatitis and gallstones Medical History diabetes Surgical History cholecystectomy 1999 Surgical History gastro/intestinal surgery 1999 x3 Hospitalization History r/t surgeries Goals Section No Information Health Concerns No Information MEDICAL EQUIPMENT No Information MENTAL STATUS No Information FUNCTIONAL STATUS No Information ASSESSMENTS Encounter Date Diagnosis Assessment Notes Treatment Notes Treatm ent Clinical Notes Jul, Anxiety (ICD-10 - F41.9) PLAN OF TREATMENT Medication Medication Name Sig Start Date Stop Date Alprazolam 1 MG 1 tablet Orally Twice a day PRN for 28 days Pioglitazone HCl 15 MG 1 tablet Orally Once a day for 30 day(s) Jul, Fluconazole 150 MG 1 tablet Orally once for 1 days Jul, Insurance Providers Payer Name Payer Address Payer Phone Insured Name Patient Relati onship to Insured Coverage Start Date Coverage End Date [facility] [address] [place] [address] REFUGIO IBRAHIM self
--- OUTSIDE RECORDS SUMMARY | 2020-08-26 17:05 | CCD ---
Author Author [facility] Organization [facility] Address Unknown Phone Unavailable Care Team Providers Care Asset Management Coordinator Name Role Phone BereKalyan sims Unavailable PROBLEMS Type Condition ICD9-CM Code [id number] Code Onset Dates Condition S tatus SNOMED Code Notes Problem Type 2 diabetes mellitus wit hout complication, without long-term current use of insulin E11.9 Active 808655330 Problem Migraine without aura and without status migrain osus, not intractable G43.009 Active 644675873 Problem Tobacco use disorder 305.1 Active 12748307 Problem PCOS (polycystic ovarian syndrome) 256.4 Activ e 67496024 Problem Anxiety F41.9 Active 85283322 Problem Other chronic pain G89.29 Active 26850972 ALLERGIES No Known Allergies ENCOUNTERS from 1982 to 2020-08-06 Encounter Location Date Provider Diagnosis [address] [address] Jul, Kalyan Blackburn IMMUNIZATIONS No Information SOCIAL HISTORY Tobacco Use: [...] Notes Start Da te End Date Status Pioglitazone HCl 15 MG 1 tablet Orally Once a day for 30 day(s) Jul, Active Sumatriptan Succinate 100 MG 1 tablet at least 2 hours between doses as needed Orally Twice a day Max monthly doses: 20 for 30 days Active Fluconazole 150 MG 1 tablet Orally once for 1 days Jul, Active Alprazolam 1 MG 1 tablet Orally Twice a day PRN for 28 days Active GlipiZIDE 5 MG 1 tablet 30 minutes before breakfast Orally BID Not-Taking Hydrocodone-Acetaminophen 7.5-325 MG 1 tablet as neede d Orally every 6 hrs for 28 days Jul, Active PROCEDURES No Information RESULTS No Results REASON FOR VISIT refill MEDICAL (GENERAL) HISTORY Type Description Date Medical [...] No Information FUNCTIONAL STATUS No Information ASSESSMENTS No Information PLAN OF TREATMENT Medication Medication Name Sig Start Date Stop Date Alprazolam 1 MG 1 tablet Orally Twice a day PRN for 28 days Pioglitazone HCl 15 MG 1 tablet Orally Once a day for 30 day(s) Jul, Fluconazole 150 MG 1 tablet Orally once for 1 days Jul, Hydrocodone-Acetaminophen 7.5-325 MG 1 tablet as neede d Orally every 6 hrs for 28 days Jul, Insurance Providers Payer Name Payer Address Payer Phone Insured Name Patient Relati onship to Insured Coverage Start Date Coverage End Date [facility] [address] [place] [address] REFUGIO IBRAHIM self
--- OUTSIDE RECORDS SUMMARY | 2020-08-26 17:05 | CCD ---
Author Author [facility] Organization [facility] Address Unknown Phone Unavailable Care Team Providers Care Multi Mission Helicopter Aircrewman Name Role Phone BereKalyan sims Unavailable PROBLEMS Type Condition ICD9-CM Code [id number] Code Onset Dates Condition S tatus SNOMED Code Notes Problem Anxiety F41.9 Active 74844618 Problem Other chronic pain G89.29 Active 82243640 Problem Tobacco use disorder 305.1 Active 00322174 Problem PCOS (polycystic ovarian syndrome) 256.4 Activ e 35765435 Problem Type 2 diabetes mellitus wit hout complication, without long-term current use of insulin E11.9 Active 869223501 ALLERGIES No Known Allergies ENCOUNTERS from 1982 to 2020-07-02 Encounter Location Date Provider Diagnosis [address] [address] Jun, Kalyan Blackburn IMMUNIZATIONS No Information SOCIAL HISTORY [...] Status Hydrocodone-Acetaminophen 7.5-325 MG 1 tablet as needed Orally ever y 6 hrs Active Alprazolam 1 MG 1 tablet Orally Twice a day PRN for 28 days Active GlipiZIDE 5 MG 1 tablet 30 minutes before breakfast Orally BID Active Sumatriptan Succinate 100 MG 1 tablet at least 2 hours between doses as needed Orally Twice a day Active MetFORMIN HCl ER 500 MG 4 tablet with largest meal O rally Once a day for 30 day(s) Jun, Active PROCEDURES No Information RESULTS No Results REASON FOR VISIT Urinary issues MEDICAL (GENERAL) HISTORY Type Description Date Medical [...] Twice a day PRN for 28 days MetFORMIN HCl ER 500 MG 4 tablet with largest meal O rally Once a day for 30 day(s) Jun, Insurance Providers Payer Name Payer Address Payer Phone Insured Name Patient Relati onship to Insured Coverage Start Date Coverage End Date MEDICAID [employer] [address] [facility] [id number] REFUGIO EASON self
--- OUTSIDE RECORDS SUMMARY | 2020-08-26 17:05 | CCD ---
Author Author [facility] Organization [facility] Address Unknown Phone Unavailable Care Team Providers Care Cleaner Industrial Name Role Phone Kalyan Blackburn Unavailable PROBLEMS Type Condition ICD9-CM Code [id number] Code Onset Dates Condition S tatus SNOMED Code Notes Problem Type 2 diabetes mellitus wit hout complication, without long-term current use of insulin E11.9 Active 081554564 Problem Migraine without aura and without status migrain osus, not intractable G43.009 Active 602275781 Problem Tobacco use disorder 305.1 Active 78523317 Problem PCOS (polycystic ovarian syndrome) 256.4 Activ e 37699539 Problem Anxiety F41.9 Active 19489780 Problem Other chronic pain G89.29 Active 01027139 ALLERGIES No Known Allergies ENCOUNTERS from 1982 to 2020-07-10 Encounter Location Date Provider Diagnosis [address] [address] Jun, Kalyan Blackburn IMMUNIZATIONS No Information SOCIAL [...] many cigarettes a day do you smoke? - REASON FOR REFERRAL No Information VITAL SIGNS No information MEDICATIONS Medication SIG (Take, Route, Frequency, Duration) Notes Start Da te End Date Status GlipiZIDE 5 MG 1 tablet 30 minutes before breakfast Orally BID Active Alprazolam 1 MG 1 tablet Orally Twice a day PRN for 28 days Active MetFORMIN HCl ER 500 MG 4 tablet with largest meal O rally Once a day for 30 day(s) Jun, Active Sumatriptan Succinate 100 MG 1 tablet at least 2 hours between doses as needed Orally Twice a day Max monthly doses: 20 for 30 days Active Hydrocodone-Acetaminophen 7.5-325 MG 1 tablet as neede d Orally every 6 hrs for 28 days Jun, Active PROCEDURES No Information RESULTS No Results REASON FOR VISIT PA sumatriptan 100mg tab, BID MEDICAL (GENERAL) HISTORY Type Description Date Medical [...] Medication Name Sig Start Date Stop Date MetFORMIN HCl ER 500 MG 4 tablet with largest meal O rally Once a day for 30 day(s) Jun, Sumatriptan Succinate 100 MG 1 tablet at least 2 hours between doses as needed Orally Twice a day Max monthly doses: 20 for 30 days Alprazolam 1 MG 1 tablet Orally Twice a day PRN for 28 days Hydrocodone-Acetaminophen 7.5-325 MG 1 tablet as neede d Orally every 6 hrs for 28 days Jun, Insurance Providers Payer Name Payer Address Payer Phone Insured Name Patient Relati onship to Insured Coverage Start Date Coverage End Date MEDICAID [place] [address] [facility] [id number] REFUGIO EASON
--- OUTSIDE RECORDS SUMMARY | 2020-08-26 17:05 | CCD ---
Author Author [facility] Organization [facility] [employer] [facility] Address Unknown Phone Unavailable Care Team Providers Care Payroll Lead Name Role Phone BereKalyan sims Unavailable PROBLEMS Type Condition ICD9-CM Code [id number] Code Onset Dates Condition S tatus SNOMED Code Notes Problem Anxiety F41.9 Active 88282755 Problem Other chronic pain G89.29 Active 22381914 Problem Tobacco use disorder 305.1 Active 81508735 Problem PCOS (polycystic ovarian syndrome) 256.4 Activ e 13118535 Problem Type 2 diabetes mellitus wit hout complication, without long-term current use of insulin E11.9 Active 672606516 ALLERGIES No Known Allergies ENCOUNTERS from 1980 to 2020-07-07 Encounter Location Date Provider Diagnosis [facility] Resident [address] [place] [address] Jun, Kalyan Blackburn IMMUNIZATIONS No Information SOCIAL [...] Coverage Start Date Coverage End Date MEDICAID [employer] [address] [facility] [address] REFUGIO EASON self
--- OUTSIDE RECORDS SUMMARY | 2020-08-26 17:05 | CCD ---
Author Author [facility] Organization [facility] [employer] [facility] Address Unknown Phone Unavailable Care Team Providers Care Fire Information Officer Name Role Phone Kalyan Blackburn Unavailable PROBLEMS Type Condition ICD9-CM Code [id number] Code Onset Dates Condition S tatus SNOMED Code Notes Problem Anxiety F41.9 Active 99938101 Problem Other chronic pain G89.29 Active 34991406 Problem Tobacco use disorder 305.1 Active 66385697 Problem PCOS (polycystic ovarian syndrome) 256.4 Activ e 09149842 Problem Type 2 diabetes mellitus wit hout complication, without long-term current use of insulin E11.9 Active 169766534 ALLERGIES No Known Allergies ENCOUNTERS from 1982 to 2020-06-27 Encounter Location Date Provider Diagnosis [facility] [place] [address] [place] [address] Jun, Kalyan Blackburn Type 2 diabetes mellitus wit hout complication, without long- term current use of insulin E11.9 ; Pyelonephritis N12 ; Anxiety F41.9 ; Pain in unspecified knee M25.569 ; Other chronic pain G89.29 and Vaccination refused by patient Z28.21 IMMUNIZATIONS No Information SOCIAL HISTORY Tobacco Use: [...] REASON FOR REFERRAL No Information VITAL SIGNS Weight 153 lbs Jun, Height 62 in Jun, BMI 27.98 kg/m2 Jun, Heart Rate 102 /min Jun, Respiratory Rate 17 /min Jun, Temperature 97.7 degrees Fahrenheit Jun, Oximetry 99 Jun, Blood pressure systolic 130 mm Hg Jun, Blood pressure diastolic 86 mm Hg Jun, MEDICATIONS Medication SIG (Take, Route, Frequency, Duration) [...] Information RESULTS No Results REASON FOR VISIT [facility] hosp potato seed cutter follow up, [id number] MEDICAL (GENERAL) HISTORY Type Description Date Medical [...] Notes Treatment Notes Treatm ent Clinical Notes Jun, Type 2 diabetes mellitus wit hout complication, without long-term current use of insulin (ICD-10 - E11.9) Advised patient to try metformin extended release to cease this can be better tolerated for the patient. We'll start at 1 pill a day and titrate her up to 4 pills a day over a 4 week. We'll recheck the patient's A1c in 3 months after being on metformin and glipizide see what further steps need to be taken. Patient has a history of pancreatitis which makes a GLP-1 agonist slightly higher for risks to use. With the patient's history of ESBL Escherichia coli in her urine a SGLT-2 inhibitor is also relatively contraindicated. Jun, Pyelonephritis (ICD-10 - N12) Patient is feeling better and advised patient if she starts having fevers, shaking chills, and night sweats to either call the office or present to the emergency department. Jun, Anxiety (ICD-10 - F41.9) Patient states that she has anxiety and will occasionally take alprazolam. Patient was started on alprazolam by her former primary care provider. I advised patient that our goal should be to get her off this medication and try a daily antianxiety medication. We'll discuss this further at the next visit. Jun, Pain in unspecified knee (ICD-10 - M25.569) Patient uses hydrocodone for pain for her knees. I advised her that mixing hydrocodone and alprazolam can be dangerous and we'll try to titrate her down on the alprazolam. . We will also look into better pain management strategies for her knee pain. Jun, Other chronic pain (ICD-10 - G89.29) Risks of opioid medication were reviewed with the patient. This includes but is not limited to the risk of dependence, development addiction, mood disturbance, osteoporosis, constipation, hormonal changes, respiration depression and . Goals of opioid therapy were discussed with the patient, with a target goal being an improvement in function, and not necessarily a reduction in pain. Patient informed that doses will not be escalated and that every effort will be made to de-escalate therapy as soon as possible. MED prescribed today 22.5 mg. Patient was advised to take the medications exactly as prescribed, and to not take other medications unless they were processed specifically prescribed. The patient is advised not to drive or to consume alcohol while on this medication. The patient vocalizes and demonstrates understanding of these instructions and agrees to follow all recommendations. There was an opportunity for questions, and all questions were answered. Jun, Vaccination refused by patient (ICD-10 - Z28.21) I offer the patient both an influenza vaccine as well as a Pneumovax however, the patient did not want to get these today as she says this is the anxiety trigger for her and needs to prepare herself for getting a vaccine. PLAN OF TREATMENT Medication Medication Name Sig Start Date Stop Date Alprazolam 1 MG 1 tablet Orally Twice a day PRN for 28 days MetFORMIN HCl ER 500 MG 4 tablet with largest meal O rally Once a day for 30 day(s) Jun, Treatment Notes Assessment Notes Clinical Notes Type 2 diabetes mellitus without complic ation, without long-term current use of insulin Advised patient to try metformin extende d release to cease this can be better tolerated for the patient. We'll start at 1 pill a day and titrate her up to 4 pills a day over a 4 week. We'll recheck the patient's A1c in 3 months after being on metformin and glipizide see what further steps need to be taken. Patient has a history of pancreatitis which makes a GLP-1 agonist slightly higher for risks to use. With the patient's history of ESBL Escherichia coli in her urine a SGLT-2 inhibitor is also relatively contraindicated. Pyelonephritis Patient is feeling better an d advised patient if she starts having fevers, shaking chills, and night sweats to either call the office or present to the emergency department. Anxiety Patient states that she has anxiety and will occasionally take alprazolam. Patient was started on alprazolam by her former primary care provider. I advised patient that our goal should be to get her off this medication and try a daily antianxiety medication. We'll discuss this further at the next visit. Pain in unspecified knee Patient uses hydrocodone for pain for her knees. I advised her that mixing hydrocodone and alprazolam can be dangerous and we'll try to titrate her down on the alprazolam. . We will also look into better pain management strategies for her knee pain. Other chronic pain Risks of opioid medication w ere reviewed with the patient. This includes but is not limited to the risk of dependence, development addiction, mood disturbance, osteoporosis, constipation, hormonal changes, respiration depression and . Goals of opioid therapy were discussed with the patient, with a target goal being an improvement in function, and not necessarily a reduction in pain.Patient informed that doses will not be escalated and that every effort will be made to de-escalate therapy as soon as possible. MED prescribed today 22.5 mg. Patient was advised to take the medications exactly as prescribed, and to not take other medications unless they were processed specifically prescribed. The patient is advised not to drive or to consume alcohol while on this medication. The patient vocalizes and demonstrates understanding of these instructions and agrees to follow all recommendations. There was an opportunity for questions, and all questions were answered. Vaccination refused by patient I offer the patient bot h an influenza vaccine as well as a Pneumovax however, the patient did not want to get these today as she says this is the anxiety trigger for her and needs to prepare herself for getting a vaccine. Next Appt Details 3 Months Reason:diabetic follow up Follow Up:3 Monthsdiabetic follow up Insurance Providers Payer Name Payer Address Payer Phone Insured Name Patient Relati onship to Insured Coverage Start Date Coverage End Date MEDICAID [employer] [address] [facility] [address] REFUGIO EASON self
--- OUTSIDE RECORDS SUMMARY | 2020-08-26 17:06 | CCD ---
Author Author [facility] Organization [facility] Address Unknown Phone Unavailable Care Team Providers Care Diagram Clerk Name Role Phone DAVID RAPHAEL Unavailable Unavailable Re-disclosure Warning The records that you are about to access may contain information from federally-assisted alcohol or drug abuse programs. If such information is present, then the following federally mandated warning applies: This information has been disclosed to you from records protected by federal confidentiality rules (42 CFR part 2). The federal rules prohibit you from making any further disclosure of this information unless further disclosure is expressly permitted by the written consent of the person to whom it pertains or as otherwise permitted by 42 CFR part 2. A general authorization for the release of medical or other information is NOT sufficient for this purpose. The Federal rules restrict any use of the information to criminally investigate or prosecute any alcohol or drug abuse patient.The records that you are about to access may contain highly sensitive health information, the redisclosure of which is protected by Article 27-F of the [place] Public Health law. If you continue you may have access to information: Regarding HIV / AIDS; Provided by facilities licensed or operated by the [facility] Office of Mental Health; or Provided by the [facility] Office for People With Developmental Disabilities. If such information is present, then the following [facility] mandated warning applies: This information has been disclosed to you from confidential records which are protected by state law. State law prohibits you from making any further disclosure of this information without the specific written consent of the person to whom it pertains, or as otherwise permitted by law. Any unauthorized further disclosure in violation of state law may result in a fine or long-term sentence or both. A general authorization for the release of medical or other information is NOT sufficient authorization for further disc losure. Encounters Encounter Providers Location Date Indications Data Source(s ) Unknown [address] [facility] [address] [place] [address] 08/05/2020 12:00:00 AM EST [facility]1 [facility] Unknown [address] [facility] [place] [address] 07/24/2020 12:00:00 AM EST eCW1 ([facility]) Unknown [address] [facility] [place] [address] 07/08/2020 12:00:00 AM EST [facility]CW1 [facility]) Unknown [address] [facility] [place] [address] 07/07/2020 12:00:00 AM EST eCW1 ([facility]) [place] [address] [facility] [place] [address] 07/01/2020 12:00:00 AM EST eCW1 ([facility]) Outpatient [address] [facility] [place] [address] 06/26/2020 12:00:00 AM EST eCW1 ([facility]) [facility]13/2020 10:00:00 AM E [facility] Outpatient [facility]: [facility] 05/13/2020 09:51:01 AM E [facility] Outpatient [facility] 05/13/2020 09:49:00 AM E [facility] 05/13/2020 09:48:00 AM E [facility] 08:54:00 AM E [facility]/13/2020 08:54:00 AM E [facility] Medications Medication Brand Name Start Date Product Form Dose Route Admi nistrative Instructions Pharmacy Instructions Status Indications Reaction Description Data Source(s) Acetaminophen 325 MG / Hydrocodone Ju trate 7.5 MG Oral Tablet Hydrocodone- Acetaminophen 7.5-325 MG Hydrocodone-Acetaminophen 7.5-325 MG 08/06/2020 12:00:00 AM EST 1.0 {tablet_as_needed} active Hydrocodone- Acetaminophen 7.5-325 MG [facility] pioglitazone 15 MG Oral Tablet Pioglitazone HCl 15 MG Piogli tazone HCl 15 MG 07/18/2020 12:00:00 AM EST 1.0 {tablet} active Pioglitazone HCl 15 MG [facility]) Fluconazole 150 MG Oral Tablet Fluconazole 150 MG 07/18/2020 12:00: 00 AM EST 1.0 {tablet} active Fluconazole 150 MG [facility]) Fluconazole 150 MG Oral Tablet Fluconazole 150 MG 07/18/2020 12:00: 00 AM EST 1.0 {tablet} active Fluconazole 150 MG [facility]) pioglitazone 15 MG Oral Tablet Pioglitazone HCl 15 MG Piogli tazone HCl 15 MG 07/18/2020 12:00:00 AM EST 1.0 {tablet} active Pioglitazone HCl 15 MG [facility]) Acetaminophen 325 MG / Hydrocodone Ju trate 7.5 MG Oral Tablet Hydrocodone- Acetaminophen 7.5-325 MG Hydrocodone-Acetaminophen 7.5-325 MG 07/07/2020 12:00:00 AM EST 1.0 {tablet_as_needed} active Hydrocodone- Acetaminophen 7.5-325 MG eCW1 ([facility]) Acetaminophen 325 MG / Hydrocodone Ju trate 7.5 MG Oral Tablet Hydrocodone- Acetaminophen 7.5-325 MG Hydrocodone-Acetaminophen 7.5-325 MG 07/07/2020 12:00:00 AM EST 1.0 {tablet_as_needed} active Hydrocodone- Acetaminophen 7.5-325 MG eCW1 ([facility]) Acetaminophen 325 MG / Hydrocodone Ju trate 7.5 MG Oral Tablet Hydrocodone- Acetaminophen 7.5-325 MG Hydrocodone-Acetaminophen 7.5-325 MG 07/07/2020 12:00:00 AM EST 1.0 {tablet_as_needed} active Hydrocodone- Acetaminophen 7.5-325 MG [facility]CW1 [facility]) 24 HR Metformin hydrochloride 500 MG Ext ended Release Oral Tablet MetFORMIN HCl ER 500 MG MetFORMIN HCl ER 500 MG 06/26/2020 12:00:00 AM EST active MetFORMIN HCl ER 500 MG eCW1 ([facility]) 24 HR Metformin hydrochloride 500 MG Ext ended Release Oral Tablet MetFORMIN HCl ER 500 MG MetFORMIN HCl ER 500 MG 06/26/2020 12:00:00 AM EST active MetFORMIN HCl ER 500 MG eCW1 ([facility]) 24 HR Metformin hydrochloride 500 MG Ext ended Release Oral Tablet MetFORMIN HCl ER 500 MG MetFORMIN HCl ER 500 MG 06/26/2020 12:00:00 AM EST active MetFORMIN HCl ER 500 MG eCW1 ([facility]) 24 HR Metformin hydrochloride 500 MG Ext ended Release Oral Tablet MetFORMIN HCl ER 500 MG MetFORMIN HCl ER 500 MG 06/26/2020 12:00:00 AM EST active MetFORMIN HCl ER 500 MG eCW1 ([facility]) Insurance Providers Payer name Policy type / Coverage type Policy ID Covered constitution party ID Covered constitution party's relationship to anguiano Policy Anguiano Plan Information [facility] [id number] SP [id number] EMEDNY [id number] SP [id number] [employer] [id number] SP [id number] SELF PAY ONLY [id number] SP [id number] [facility] [id number] SP [id number] [facility] [id number] SP [id number] Self Pay P UNAVAILABLE S UNAVAILA BLE MEDICAID [id number] SP [id number] SELF PAY UNAVAILABLE UNAVAILA BLE CIGNA INSURANCE CO [id number] SP [id number] MEDICAID P [id number] S [id number] CIGNA/MVP/CONN GEN/PREFE P [id number] S [id number] [employer] [id number] SP U [id number] P UNAVAILABLE UNAVAILA BLE SELF PAY SP UNAVAILABLE S UNAVAILA BLE REFUGIO [place] SP UNAVAILABLE S U NAVAILABLE Problems, Conditions, and Diagnoses Code Display Name Description Problem Type Effective Dates Data Source(s) G43.009 [id number] Migraine without aur a and without status migrainosus, not intractable Problem 07/08/2020 12:00:00 AM EST eCW1 ([facility]) G89.29 [id number] Other chronic pain Problem 06/26/2020 12:00: 00 AM EST [facility]) F41.9 [id number] Anxiety Problem 06/26/2020 12:00:00 AM ES T eCW1 [facility]) E11.9 [id number] Type 2 diabetes gayatri itus without complication, without long-term current use of insulin Problem 06/26/2020 12:00:00 AM EST eCW1 ([facility]) 520.6 Impacted tooth Impacted tooth 05/13/2020 08:53: 08 AM [facility] Results ID Date Data Source [id number] 05/13/2020 08:27:05 AM [facility] Current Problems: Impacted tooth (ICD-52 0.6) (MIT10-C86.1) Dental Chart: Procedures:Type - CDT Code - Description B - (D0330) Panoramic film (Performed by Geovanna Willis DDS) B - (D0140) Limited oral evaluation - problem focused on Tooth # 32 (Performed by Geovanna Willis DDS) Chart Notes:raphael (May 13 2020 8:53AM): CC: " I am hvaing jaw pain on the lower right, sometimes its popping"HPI: 1 weekPain Lvl: 6 when pain is present, pain comes and goesRMH Allergies; NKDAPano taken-DexisExam reveals: tender to palpation, tender to percusion No tenderness of jaw muscles on palpation. No evidence of clicking of TMJ. Pt feels like the discomfort is coming from behind #31Recommended pt see oral surgery for consult. Explained they may not recommend extraction due to location of #32. I was unable to reproduce any symptoms at today's appointment. Recommended pt try using a national guard member, hot/cold compresses/ and ibuprofen to help with the discomfort.pt. was c ooperativeDX: impacted 3rd molar #32Plan: referal to OS for tooth #32- Paper referral given to JENAE oral surgeryAdditional PPE requirements due to COVID-19 in the dental setting, N95, surgical mask, hair covering, gown Pt was cooperative.NV: Geovanna Verma DDS by raphael (05/13/2020 8:53 AM): Tooth Notes and Watches: Assessment & Plan Problems:Added: Impacted tooth (ICD-520.6) (WSX58-K30.1) Name Value Range Interpretation Code Description Data Melonie rce(s) Supporting Document(s) ID Date Data Source [id number] 12/11/2019 12:00:00 AM EDT [facility] Name Value Range Interpretation Code Description Data Melonie rce(s) Supporting Document(s) 2019-nCoV RNA XXX PEGGY+probe-Imp [facility] This lab was ordered by [facility] and reported by [employer] Procedure Social History Code Duration Value Status Description Data Source(s ) Smoking 07/18/2020 12:00:00 AM EST Current Smoker completed Curre nt Smoker [facility]) Smoking 07/18/2020 12:00:00 AM EST Current Smoker completed Curre nt Smoker eCW1 ([facility]) Smoking 06/26/2020 12:00:00 AM EST Current Smoker completed Curre nt Smoker eCW1 ([facility]) Smoking 06/26/2020 12:00:00 AM EST Current Smoker completed Curre nt Smoker eCW1 ([facility]) Smoking 06/26/2020 12:00:00 AM EST Current Smoker completed Curre nt Smoker eCW1 ([facility]) Smoking 06/26/2020 12:00:00 AM EST Current Smoker completed Curre nt Smoker eCW1 ([facility]) Vital Signs ID Date Data Source UNK Name Value Range Interpretation Code Description Data Source(s) Diastolic blood pressure 86 mm[Hg] 86 mm[Hg] eCW[facility]) Systolic blood pressure 130 mm[Hg] 130 mm[Hg] e CW1 [facility]) Body temperature 97.7 [degF] 97.7 [degF] [facility]) Respiratory rate 17 /min 17 /min eCW1 ([facility]) Heart rate 102 /min 102 /min eCW1 ([facility]) Body mass index (BMI) [Ratio] 27.98 kg/m2 27.98 kg/m2 eCW1 [facility]) Body height 62 [in_i] 62 [in_i] eCW1 ([facility]) Body weight 153 [lb_av] 153 [lb_av] eCW1 ([facility]) Patient Treatment Plan of Care Planned Activity Planned Date Details Description Data Source (s) Acetaminophen 325 MG / Hydrocodone Bitartrate 7.5 MG O ral Tablet 08/06/2020 12:00:00 AM EST eCW1 ([facility]) Fluconazole 150 MG Oral Tablet 07/18/2020 12:00:00 AM EST [facility]) pioglitazone 15 MG Oral Tablet 07/18/2020 12:00:00 AM EST eCW1 [facility]) pioglitazone 15 MG Oral Tablet 07/18/2020 12:00:00 AM EST eCW1 [facility]) Fluconazole 150 MG Oral Tablet 07/18/2020 12:00:00 AM EST eCW1 [facility]) Acetaminophen 325 MG / Hydrocodone Bitartrate 7.5 MG O ral Tablet 07/07/2020 12:00:00 AM EST eCW1 ([facility]) Acetaminophen 325 MG / Hydrocodone Bitartrate 7.5 MG O ral Tablet 07/07/2020 12:00:00 AM EST eCW1 ([facility]) 24 HR Metformin hydrochloride 500 MG Extended Release Oral Tablet 06/26/2020 12:00:00 AM EST eCW1 ([facility]) 24 HR Metformin hydrochloride 500 MG Extended Release Oral Tablet 06/26/2020 12:00:00 AM EST eCW1 ([facility]) 24 HR Metformin hydrochloride 500 MG Extended Release Oral Tablet 06/26/2020 12:00:00 AM EST eCW1 ([facility]) 24 HR Metformin hydrochloride 500 MG Extended Release Oral Tablet 06/26/2020 12:00:00 AM EST eCW1 ([facility])
[2020-08-26 17:11] LABS: BLOOD UREA NITROGEN 11 MG/DL (7-18); CALCIUM LEVEL 10.2 MG/DL (8.5-10.1); CARBON DIOXIDE LEVEL 21 MEQ/L (21-32); CHLORIDE LEVEL 104 MEQ/L (98-107); CREATININE FOR GFR 0.93 MG/DL (0.55-1.30); GLOMERULAR FILTRATION RATE > 60.0 (>60); GLUCOSE, FASTING 404 MG/DL (70-100); POTASSIUM SERUM 4.2 MEQ/L (3.5-5.1); SODIUM LEVEL 139 MEQ/L (136-145)
[2020-08-26 17:32] LABS: AMPHETAMINES LEVEL URINE NEGATIVE (NEGATIVE); BARBITURATES URINE NEGATIVE (NEGATIVE); BENZODIAZEPINES URINE NEGATIVE (NEGATIVE); CANNABINOIDS URINE POSITIVE (NEGATIVE); COCAINE METABOLITE URINE NEGATIVE (NEGATIVE); METHADONE URINE NEGATIVE (NEGATIVE); OPIATES URINE POSITIVE (NEGATIVE); PHENCYCLIDINE URINE NEGATIVE (NEGATIVE)
[2020-08-26 19:46] LABS: BASO # 0.1 10^3/uL (0.0-0.2); BASO % 0.5 % (0.0-1.0); EOS % 0.2 % (0.0-3.0); HEMATOCRIT 40.4 % (36.0-47.0); HEMOGLOBIN 13.5 g/dl (12.0-15.5); LYMPH # 3.2 10^3/uL (1.5-5.0); LYMPH % 17.3 % (24.0-44.0); MEAN CORPUSCULAR HEMOGLOBIN 27.9 pg (27.0-33.0); MEAN CORPUSCULAR HGB CONC 33.4 g/dl (32.0-36.5); MEAN CORPUSCULAR VOLUME 83.5 fl (80.0-96.0); MONO # 0.7 10^3/uL (0.0-0.8); MONO % 3.5 % (2.0-8.0); NEUTROPHILS # 14.6 10^3/uL (1.5-8.5); NEUTROPHILS % 78.1 % (36.0-66.0); RED BLOOD COUNT 4.84 10^6/uL (4.00-5.40); WHITE BLOOD COUNT 18.7 10^3/uL (4.0-10.0)
--- NOTE | 2020-08-26 19:49 | ECGEPIP ---
[facility] - ED Test Date: 2020-08-26 Pat Name: REFUGIO EASON Department: Room: - Gender: Female Registered Nurse First Assistant: TY : 1980 Requested By: ALIVIA ARAUJO Order Number: [id number] Reading MD: Ray Walters Measurements Intervals [place] Rate: 66 P: 46 FL: 150 QRS: 13 QRSD: 88 T: 43 QT: 456 QTc: 478 Interpretive Statements Normal sinus rhythm with sinus arrhythmia NO PRIORS FOR COMPARISON Electronically Signed on 08-26-2020 19:49:55 EST by Ray Walters
[2020-08-26 19:51] LABS: PLATELET COUNT, AUTOMATED 382 10^3/uL (150-450)
[2020-08-26] MEDS ORDERED: ONDA4TAB6 PO (20:56)
[2020-08-26] MEDS ORDERED: FOSFOMYCIN TROMETHAMINE 3 GM POWDER PACKET (MONUROL) PO ONE (21:00)
[2020-08-26 21:26] VITALS: BP 140/62
--- NOTE | 2020-08-27 08:32 | REP ---
INDICATION: right flank pain; hx of pylenephritis COMPARISON: None TECHNIQUE: Real time baer scale ultrasound examination using curved array transducer. FINDINGS: Right kidney demonstrates very mild pelviectasis/renal fullness and measures 9.6 x 4.8 x 4.0 cm without nephrolithiasis, cystic or renal mass lesion. Left kidney measures 10.0 x 6.3 x 6.9 cm and is normal in appearance without hydronephrosis, nephrolithiasis, cystic or renal mass lesion. Bladder is normal. IMPRESSION: Very mild right renal fullness/renal pelviectasis is nonspecific. <Electronically signed by Marques Woodson > 08/27/20 0804
== END 2020-08-26 21:31 | disposition home or self-care (01) ==
LOC: EDBD 14:25 → M ED 14:25
DX: N39.0 Urinary tract infection, site not specified (principal); F12.288 Cannabis dependence with other cannabis-induced disorder; E11.9 Type 2 diabetes mellitus without complications; F41.9 Anxiety disorder, unspecified; F17.200 Nicotine dependence, unspecified, uncomplicated; Z79.899 Other long term (current) drug therapy
CPT/HCPCS: 36415; 76775; 80048; 80076; 80307; 81001; 82010; 82550; 82553; 82803; 83036; 83605; 83690; 83735; 83930; 85025; 87088; 87186; 93005; 93041; 96361; 96374; 96375; 99285; J1630; J1885

== ENCOUNTER → 2020-10-24 | Outpatient (REF) | payer OTHER ==
[~2020-10-24] MED LIST changes: +ONDA4TAB6 PO; +PIOG1TAB36
[2020-10-24 15:31] LABS: CHOLESTEROL RISK RATIO 3.545 (<5)
[2020-10-24 15:55] LABS: HEMOGLOBIN A1c 8.8 %
== END ==
LOC: M SFHCPLAZ 14:09
DX: E11.9 Type 2 diabetes mellitus without complications (principal)

== ENCOUNTER → 2020-11-03 | Outpatient (REF) | payer OTHER ==
[2020-11-03 12:24] LABS: BLOOD UREA NITROGEN 10 MG/DL (7-18); CALCIUM LEVEL 9.2 MG/DL (8.5-10.1); CARBON DIOXIDE LEVEL 29 MEQ/L (21-32); CHLORIDE LEVEL 106 MEQ/L (98-107); GLOMERULAR FILTRATION RATE > 60.0 (>60); GLUCOSE, FASTING 160 MG/DL (70-100); POTASSIUM SERUM 4.3 MEQ/L (3.5-5.1); SODIUM LEVEL 139 MEQ/L (136-145)
== END ==
LOC: M PLALAB 08:15
PROVIDERS: ATTEND Student in an Organized Health Care Education/Training Program
DX: I10 Essential (primary) hypertension (principal)

== ENCOUNTER 2021-04-23 15:40 | Inpatient (IN) | payer OTHER ==
[~2021-04-23] VITALS: Ht 154.9 cm; Wt 72.7 kg
--- OUTSIDE RECORDS SUMMARY | 2021-04-23 15:54 | CCD ---
Author Author [facility] Organization [facility] Address Unknown Phone Unavailable Care Team Providers Care Apprentice Lineman Third Step Name Role Phone Rolanda Jasmine Unavailable PROBLEMS Type Condition ICD9-CM Code MVO24-GU Code Onset Dates Condition S tatus W/U Status Risk SNOMED Code Notes Problem PCOS (polycystic ovarian syndrome) 256.4 Activ e confirmed 16791284 Problem Other chronic pain G89.29 Active confirmed 8 6184017 Problem Anxiety F41.9 Active confirmed 98827364 Problem Depression, unspecified depression type F32.9 Active confirmed 08697856 Problem Tobacco use disorder F17.200 Active confirmed 493422815 Problem SUZANNA (generalized anxiety disorder) F41.1 Activ e confirmed 40873910 Problem Migraine without aura and without status migrain osus, not intractable G43.009 Active confirmed 092003738 Problem 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 Resident [address] [facility] [address] [phone] [place] [address] Mar, Rolanda Jasmine SUZANNA (generalized anx iety disorder) F41.1 IMMUNIZATIONS No Information SOCIAL HISTORY Tobacco Use: [...] many cigarettes a day do you smoke? 11- REASON FOR REFERRAL No Information VITAL SIGNS No information MEDICATIONS Medication SIG (Take, Route, Frequency, Duration) Notes Start Da te End Date Status glipiZIDE 5 MG 1 tablet 30 minutes before breakfast Orally BID Active BD Pen Needle Mini U/F 31G X 5 MM as directed daily Aug Active Lisinopril 5 MG TAKE ONE TABLET BY MOUTH EVERY DAY for 30 Active SUMAtriptan Succinate 100 MG 1 tablet at least 2 hours between doses as needed Orally Twice a day Max monthly doses: 20 for 30 days Active Fluconazole 150 MG 1 tablet Orally every 3 days for 9 days Aug, Not-Taking HYDROcodone-Acetaminophen 7.5-325 MG 1 tablet as neede d Orally every 6 hrs for 28 days Please refill the medication on 02/22/2021. Mar, Active ALPRAZolam 1 MG 1 tablet Orally Twice a day for 28 days Mar, Active Basaglar KwikPen 100 UNIT/ML INJECT 14 UNITS UNDER THE SKIN DAILY TO START, TITRATE UP BY 2 UNITS EVERY 3 DAYS IF SUGARS ARE MORE THAN 130 UP TO A MAX OF 30 UNITS DAILY for 30 Active PARoxetine HCl 10 MG TAKE ONE TABLET BY MOUTH PRESTON Orally Once a day for 30 days Active Pioglitazone HCl 15 MG 1 tablet Orally Once a day Active PROCEDURES No Information RESULTS No Results REASON FOR VISIT Joshua Peralta MEDICAL (GENERAL) HISTORY Type Description Date Medical History PCOS Medical History Anxiety Medical History Htn on lisinopril Medical History back pain, knee pain and hip pain: Steroid injections in bilateral knee and hip in the past. Medical History hx of pancreatitis and gallstones Medical History diabetes, last A1c is 8.8, o n insulin 28 units, glipizide, pioglitazone[not on Metformin, GLP, SGLT-2 due to side effects] Medical History Depression, started on paroxetine Medical History Recurrent UTI with ESBL Surgical History cholecystectomy 1999 Surgical History gastro/intestinal surgery 1999 x3 Hospitalization History r/t surgeries Goals Section No Information Health Concerns No Information MEDICAL EQUIPMENT No Information MENTAL STATUS No Information FUNCTIONAL STATUS No Information ASSESSMENTS Encounter Date Diagnosis Assessment Notes Treatment Notes Treatm ent Clinical Notes Mar, SUZANNA (generalized anxiety disorder) (ICD-10 - F41 .1) PLAN OF TREATMENT Medication Medication Name Sig Start Date Stop Date glipiZIDE 5 MG 1 tablet 30 minutes before breakfast Orally BID Basaglar KwikPen 100 UNIT/ML INJECT 14 UNITS UNDER THE SKIN DAILY TO START, TITRATE UP BY 2 UNITS EVERY 3 DAYS IF SUGARS ARE MORE THAN 130 UP TO A MAX OF 30 UNITS DAILY for 30 PARoxetine HCl 10 MG TAKE ONE TABLET BY MOUTH PRESTON RY MORNING Orally Once a day for 30 days ALPRAZolam 1 MG 1 tablet Orally Twice a day for 28 days Mar, HYDROcodone-Acetaminophen 7.5-325 MG 1 tablet as neede d Orally every 6 hrs for 28 days Mar, Pioglitazone HCl 15 MG 1 tablet Orally Once a day Lisinopril 5 MG TAKE ONE TABLET BY MOUTH EVERY DAY for 30 Next Appt Details Provider Name:Isaiah Earl, 2021-05-04 11 :00:00 AM, [address] [facility] , , [place], [address], Insurance Providers Payer Name Payer Address Payer Phone Insured Name Patient Relati onship to Insured Coverage Start Date Coverage End Date [facility] [address] [facility] [id number] REFUGIO IBRAHIM self
--- OUTSIDE RECORDS SUMMARY | 2021-04-23 15:54 | CCD ---
Author Author [facility] Organization [facility] Address Unknown Phone Unavailable Care Team Providers Care Business And Financial Counsel Name Role Phone Rolanda Jasmine Unavailable PROBLEMS Type Condition ICD9-CM Code ZKA89-IP Code Onset Dates Condition S tatus W/U Status Risk SNOMED Code Notes Problem PCOS (polycystic ovarian syndrome) 256.4 Activ e confirmed 27009873 Problem Other chronic pain G89.29 Active confirmed 8 5914792 Problem Anxiety F41.9 Active confirmed 20291114 Problem Depression, unspecified depression type F32.9 Active confirmed 44212199 Problem Tobacco use disorder F17.200 Active confirmed 970704570 Problem SUZANNA (generalized anxiety disorder) F41.1 Activ e confirmed 87664216 Problem Migraine without aura and without status migrain osus, not intractable G43.009 Active confirmed 916064015 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 Z79.4 Activ e confirmed 369474550 Problem Lumbago with sciatica, right side M54.41 Active confirmed 867660629 Problem Essential hypertension I10 Active confirmed 45503049 ALLERGIES No Known Allergies ENCOUNTERS from 1980 to 2021-03-20 Encounter Location Date Provider Diagnosis [facility] Resident [address] [facility] [address] [phone] [place] [address] 07 Mar, 2021 Rolanda Jasmine Lumbago with sciatic a, right side M54.41 IMMUNIZATIONS No Information SOCIAL HISTORY Tobacco Use: [...] 30 minutes before breakfast Orally BID Active ALPRAZolam 1 MG 1 tablet Orally Twice a day for 28 days Mar, Active BD Pen Needle Mini U/F 31G X 5 MM as directed daily Aug Active Lisinopril 5 MG TAKE ONE TABLET BY MOUTH EVERY DAY for 30 Active Pioglitazone HCl 15 MG 1 tablet Orally Once a day Active HYDROcodone-Acetaminophen 7.5-325 MG 1 tablet as neede d Orally every 6 hrs for 28 days Please refill the medication on 02/22/2021. Mar, Active Fluconazole 150 MG 1 tablet Orally every 3 days for 9 days Aug, Not-Taking Basaglar KwikPen 100 UNIT/ML INJECT 14 UNITS UNDER THE SKIN DAILY TO START, TITRATE UP BY 2 UNITS EVERY 3 DAYS IF SUGARS ARE MORE THAN 130 UP TO A MAX OF 30 UNITS DAILY for 30 Active SUMAtriptan Succinate 100 MG 1 tablet at least 2 hours between doses as needed Orally Twice a day Max monthly doses: 20 for 30 days Active PARoxetine HCl 10 MG TAKE ONE TABLET BY MOUTH EVERY MORNING for 30 Active PROCEDURES No Information RESULTS No Results [...] Treatment Notes Treatm ent Clinical Notes Mar, Lumbago with sciatica, right side (ICD-10 - M54. 41) PLAN OF TREATMENT Medication Medication Name Sig Start Date Stop Date glipiZIDE 5 MG 1 tablet 30 minutes before breakfast Orally BID Basaglar KwikPen 100 UNIT/ML INJECT 14 UNITS UNDER THE SKIN DAILY TO START, TITRATE UP BY 2 UNITS EVERY 3 DAYS IF SUGARS ARE MORE THAN 130 UP TO A MAX OF 30 UNITS DAILY for 30 Lisinopril 5 MG TAKE ONE TABLET BY MOUTH EVERY DAY for 30 Pioglitazone HCl 15 MG 1 tablet Orally Once a day HYDROcodone-Acetaminophen 7.5-325 MG 1 tablet as neede d Orally every 6 hrs for 28 days Mar, PARoxetine HCl 10 MG TAKE ONE TABLET BY MOUTH EVERY MORNING for 30 ALPRAZolam 1 MG 1 tablet Orally Twice a day for 28 days Mar, Insurance Providers Payer Name Payer Address Payer Phone Insured Name Patient Relati onship to Insured Coverage Start Date Coverage End Date [facility] [address] [place] [phone] REFUGIO IBRAHIM self
--- OUTSIDE RECORDS SUMMARY | 2021-04-23 15:54 | CCD ---
Author Author [facility] Organization [facility] Address Unknown Phone Unavailable Care Team Providers Care Fish Trapper Name Role Phone Kumar Diaz Unavailable PROBLEMS Type Condition ICD9-CM Code [id number] Code Onset Dates Condition S tatus W/U Status Risk SNOMED Code Notes Problem PCOS (polycystic ovarian syndrome) 256.4 Activ e confirmed 94799765 Problem Other chronic pain G89.29 Active confirmed 8 4946303 Problem Anxiety F41.9 Active confirmed 68541135 Problem Depression, unspecified depression type F32.9 Active confirmed 15828959 Problem Tobacco use disorder F17.200 Active confirmed 676190714 Problem SUZANNA (generalized anxiety disorder) F41.1 Activ e confirmed 79178024 Problem Migraine without aura and without status migrain osus, not intractable G43.009 Active confirmed 045743533 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.4 Activ e confirmed 029648449 Problem Lumbago with sciatica, right side M54.41 Active confirmed 541618542 Problem Essential hypertension I10 Active confirmed 18918069 ALLERGIES No Known Allergies ENCOUNTERS from 1982 to 2021-02-16 Encounter Location Date Provider Diagnosis [address] [phone] [place] [address] Feb, Kumar Diaz SUZANNA (generalized anxiety dis order) F41.1 IMMUNIZATIONS No Information SOCIAL HISTORY Tobacco [...] 30 minutes before breakfast Orally BID Active Basaglar KwikPen 100 UNIT/ML start at 14 units dauly, titrate up by 2 units every 3 days if sugars are more than 130 until on 30 units daily Subcutaneous daily for 30 days 28 UNITS Active ALPRAZolam 1 MG 1 tablet Orally Twice a day for 28 days Feb, Active Pioglitazone HCl 15 MG 1 tablet Orally Once a day Active PARoxetine HCl 10 MG 1 tablet in the morning Orally Once a day f or 30 day(s) Jan, Active HYDROcodone-Acetaminophen 7.5-325 MG 1 tablet as neede d Orally every 6 hrs for 28 days Jan, Active Fluconazole 150 MG 1 tablet Orally every 3 days for 9 days Aug, Not-Taking Lisinopril 5 MG 1 tablet Orally Once a day for 30 Active SUMAtriptan Succinate 100 MG 1 tablet at least 2 hours between doses as needed Orally Twice a day Max monthly doses: 20 for 30 days Active BD Pen Needle Mini U/F 31G X 5 MM as directed daily Aug Active PROCEDURES No Information RESULTS No Results [...] Notes Treatment Notes Treatm ent Clinical Notes Feb, SUZANNA (generalized anxiety disorder) (ICD-10 - F41 .1) PLAN OF TREATMENT Medication Medication Name Sig Start Date Stop Date PARoxetine HCl 10 MG 1 tablet in the morning Orally Once a d ay for 30 day(s) Jan, glipiZIDE 5 MG 1 tablet 30 minutes before breakfast Orally BID Basaglar KwikPen 100 UNIT/ML start at 14 units dauly, titrate up by 2 units every 3 days if sugars are more than 130 until on 30 units daily Subcutaneous daily for 30 days Pioglitazone HCl 15 MG 1 tablet Orally Once a day ALPRAZolam 1 MG 1 tablet Orally Twice a day for 28 days Feb, Insurance Providers Payer Name Payer Address Payer Phone Insured Name Patient Relati onship to Insured Coverage Start Date Coverage End Date [facility] [address] [facility] [phone] REFUGIO IBRAHIM self
--- OUTSIDE RECORDS SUMMARY | 2021-04-23 15:54 | CCD ---
Author Author [facility] Organization [facility] Address Unknown Phone Unavailable Care Team Providers Care Trucker Name Role Phone Rolanda Jasmine Unavailable PROBLEMS Type Condition ICD9-CM Code [id number] Code Onset Dates Condition S tatus W/U Status Risk SNOMED Code Notes Problem PCOS (polycystic ovarian syndrome) 256.4 Activ e confirmed 32065322 Problem Other chronic pain G89.29 Active confirmed 8 7126422 Problem Anxiety F41.9 Active confirmed 45956271 Problem Depression, unspecified depression type F32.9 Active confirmed 51317149 Problem Tobacco use disorder F17.200 Active confirmed 788681567 Problem SUZANNA (generalized anxiety disorder) F41.1 Activ e confirmed 76170101 Problem Migraine without aura and without status migrain osus, not intractable G43.009 Active confirmed 214472132 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 [address] [phone] [place] [address] Feb, Rolanda Annei SUZANNA (generalized anx iety disorder) F41.1 IMMUNIZATIONS [...] 5 MM as directed daily Aug Active Pioglitazone HCl 15 MG 1 tablet Orally Once a day Active SUMAtriptan Succinate 100 MG 1 tablet at least 2 hours between doses as needed Orally Twice a day Max monthly doses: 20 for 30 days Active PARoxetine HCl 10 MG TAKE ONE TABLET BY MOUTH EVERY MORNING for 30 Active Fluconazole 150 MG 1 tablet Orally every 3 days for 9 days Aug, Not-Taking Basaglar KwikPen 100 UNIT/ML INJECT 14 UNITS UNDER THE SKIN DAILY TO START, TITRATE UP BY 2 UNITS EVERY 3 DAYS IF SUGARS ARE MORE THAN 130 UP TO A MAX OF 30 UNITS DAILY for 30 Active HYDROcodone-Acetaminophen 7.5-325 MG 1 tablet as neede d Orally every 6 hrs for 28 days Please refill the medication on 02/22/2021. Feb, Active Lisinopril 5 MG TAKE ONE TABLET BY MOUTH EVERY DAY for 30 Active PROCEDURES No Information RESULTS [...] MAX OF 30 UNITS DAILY for 30 Pioglitazone HCl 15 MG 1 tablet Orally Once a day HYDROcodone-Acetaminophen 7.5-325 MG 1 tablet as neede d Orally every 6 hrs for 28 days Feb, PARoxetine HCl 10 MG TAKE ONE TABLET BY MOUTH EVERY MORNING for 30 Lisinopril 5 MG TAKE ONE TABLET BY MOUTH EVERY DAY for 30 ALPRAZolam 1 MG 1 tablet Orally Twice a day for 28 days Mar, Insurance Providers Payer Name Payer Address Payer Phone Insured Name Patient Relati onship to Insured Coverage Start Date Coverage End Date [facility] [address] [place] [address] REFUGIO IBRAHIM self
--- OUTSIDE RECORDS SUMMARY | 2021-04-23 15:54 | CCD ---
Author Author [facility] Organization [facility] Address Unknown Phone Unavailable Care Team Providers Care Director Of Rotc Name Role Phone Kumar Diaz Unavailable PROBLEMS Type Condition ICD9-CM Code [id number] Code Onset Dates Condition S tatus W/U Status Risk SNOMED Code Notes Problem PCOS (polycystic ovarian syndrome) 256.4 Activ e confirmed 33149728 Problem Other chronic pain G89.29 Active confirmed 8 1244515 Problem Anxiety F41.9 Active confirmed 81366917 Problem Depression, unspecified depression type F32.9 Active confirmed 25463038 Problem Tobacco use disorder F17.200 Active confirmed 235337387 Problem SUZANNA (generalized anxiety disorder) F41.1 Activ e confirmed 43262274 Problem Migraine without aura and without status migrain osus, not intractable G43.009 Active confirmed 084755713 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 Activ e confirmed 242721037 Problem Lumbago with sciatica, right side M54.41 Active confirmed 548013933 Problem Essential hypertension I10 Active confirmed 57764315 ALLERGIES No Known Allergies ENCOUNTERS from 1982 to 2021-02-17 Encounter Location Date Provider Diagnosis [address] [phone] [place] [address] Feb, Kumar Diaz SUZANNA (generalized anxiety dis [...] Information RESULTS No Results REASON FOR VISIT alprazolam MEDICAL (GENERAL) HISTORY Type Description Date Medical [...] (generalized anxiety disorder) (ICD-10 - F41 .1) -We will prescribe alprazolam 2 mg/day [0.5 mg in the morning, 0.5 mg in the afternoon, 1 mg in the night] this was the regimen which patient was taking earlier for her SUZANNA, given that I started sertraline I decrease the dose of benzodiazepine 0.5 mg twice daily but patient was unhappy with that and was shouting and yelling in phone when I tried to explain why I decreased the dose of benzodiazepine. -I did explain that it is detrimental to her health to take higher doses of benzodiazepines on a regular basis. -She is not in a state of mind to understand or even to have a conversation during the telephone encounter -We will continue to prescribe her her prior dosage of benzodiazepine for 30 days until her SSRI kicks in and will consider decreasing the dose them. PLAN OF TREATMENT Medication Medication Name Sig [...] Twice a day for 28 days Feb, Treatment Notes Assessment Notes Clinical Notes SUZANNA (generalized anxiety disorder) -We w ill prescribe alprazolam 2 mg/day [0.5 mg in the morning, 0.5 mg in the afternoon, 1 mg in the night] this was the regimen which patient was taking earlier for her SUZANNA, given that I started sert raline I decrease the dose of benzodiazepine 0.5 mg twice daily but patient was unhappy with that and was shouting and yelling in phone when I tried to explain why I decreased the dose of benzodiazepine.-I did explain that it is detrimental to her health to take higher doses of benzodiazepines on a regular basis.-She is not in a state of mind to understand or even to have a conversation during the telephone encounter-We will continue to prescribe her her prior dosage of benzodiazepine for 30 days until her SSRI kicks in and will consider decreasing the dose them. Insurance Providers Payer Name Payer Address Payer Phone Insured Name Patient Relati onship to Insured Coverage Start Date Coverage End Date [facility] [address] [facility] [phone] REFUGIO IBRAHIM self
--- OUTSIDE RECORDS SUMMARY | 2021-04-23 15:54 | CCD ---
Author Author [facility] Organization [facility] Address Unknown Phone Unavailable Care Team Providers Care Diesel Roller Operator Name Role Phone Rolanda Jasmine Unavailable PROBLEMS Type Condition ICD9-CM Code [id number] Code Onset Dates Condition S tatus W/U Status Risk SNOMED Code Notes Problem PCOS (polycystic ovarian syndrome) 256.4 Activ e confirmed 85561440 Problem Other chronic pain G89.29 Active confirmed 8 7900849 Problem Anxiety F41.9 Active confirmed 70436225 Problem Depression, unspecified depression type F32.9 Active confirmed 25115217 Problem Tobacco use disorder F17.200 Active confirmed 224349784 Problem SUZANNA (generalized anxiety disorder) F41.1 Activ e confirmed 42482865 Problem Migraine without aura and without status migrain osus, not intractable G43.009 Active confirmed 230553180 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 Activ e confirmed 071624515 Problem Lumbago with sciatica, right side M54.41 Active confirmed 314435442 Problem Essential hypertension I10 Active confirmed 77615192 ALLERGIES No Known Allergies ENCOUNTERS from 1982 to 2021-04-17 Encounter Location Date Provider Diagnosis [facility] [place] [address] [facility] [address] [phone] [place] [address] Apr, Rolanda Jasmine Lumbago with sciatic a, right [...] 30 minutes before breakfast Orally BID Active HYDROcodone-Acetaminophen 7.5-325 MG 1 tablet as neede d Orally every 6 hrs for 28 days Please refill the medication on 02/22/2021. Apr, Active Lisinopril 5 MG TAKE ONE TABLET BY MOUTH EVERY DAY for 30 Active SUMAtriptan Succinate 100 MG 1 tablet at least 2 hours between doses as needed Orally Twice a day Max monthly doses: 20 for 30 days Active Fluconazole 150 MG 1 tablet Orally every 3 days for 9 days Aug, Not-Taking BD Pen Needle Mini U/F 31G X 5 MM as directed daily Aug Active ALPRAZolam 1 MG 1 tablet Orally Twice a day for 28 days Mar, Active Basaglar KwikPen 100 UNIT/ML INJECT 14 UNITS UNDER THE SKIN DAILY TO START, TITRATE UP BY 2 UNITS EVERY 3 DAYS IF SUGARS ARE MORE THAN 130 UP TO A MAX OF 30 UNITS DAILY for 30 Active PARoxetine HCl 10 MG TAKE ONE TABLET BY MOUTH PRESTON MORNING Orally Once a day for 30 days Active Pioglitazone HCl 15 MG 1 tablet Orally Once a day Active PROCEDURES No Information RESULTS No Results REASON FOR VISIT Hydrocodone MEDICAL (GENERAL) HISTORY Type Description Date Medical [...] Notes Treatment Notes Treatm ent Clinical Notes Apr, Lumbago with sciatica, right side (ICD-10 - [...] Orally every 6 hrs for 28 days Apr, Pioglitazone HCl 15 MG 1 tablet Orally Once a day Lisinopril 5 MG TAKE ONE TABLET BY MOUTH EVERY DAY for 30 Next Appt Details Provider Name:Isaiah Earl, 2021-05-04 11 :00:00 AM, [address] [facility] [address] , [place], [address], Insurance Providers Payer Name Payer Address Payer Phone Insured Name Patient Relati onship to Insured Coverage Start Date Coverage End Date [facility] [address] [facility] [address] REFUGIO IBRAHIM self
--- OUTSIDE RECORDS SUMMARY | 2021-04-23 15:54 | CCD ---
Author Author [facility] Organization [facility] Address Unknown Phone Unavailable Care Team Providers Care Network Admin Name Role Phone Kumar Diaz Unavailable PROBLEMS Type Condition ICD9-CM Code [id number] Code Onset Dates Condition S tatus W/U Status Risk SNOMED Code Notes Problem PCOS (polycystic ovarian syndrome) 256.4 Activ e confirmed 56256873 Problem Other chronic pain G89.29 Active confirmed 8 9565171 Problem Anxiety F41.9 Active confirmed 82695384 Problem Depression, unspecified depression type F32.9 Active confirmed 63484315 Problem Tobacco use disorder F17.200 Active confirmed 258701599 Problem SUZANNA (generalized anxiety disorder) F41.1 Activ e confirmed 42941054 Problem Migraine without aura and without status migrain osus, not intractable G43.009 Active confirmed 503695475 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 Activ e confirmed 717830049 Problem Lumbago with sciatica, right side M54.41 Active confirmed 742395335 Problem Essential hypertension I10 Active confirmed 15322491 ALLERGIES No Known Allergies ENCOUNTERS from 1982 to 2021-02-23 Encounter Location Date Provider Diagnosis [facility] [address] [facility] [address] [phone] [place] [address] Feb, Shanlena Lambttbrigitte Lumbago with sciat ica, right side M54.41 IMMUNIZATIONS No Information SOCIAL [...] a day for 28 days Feb, Active PARoxetine HCl 10 MG 1 tablet in the morning Orally Once a day f or 30 day(s) Jan, Active SUMAtriptan Succinate 100 MG 1 tablet at least 2 hours between doses as needed Orally Twice a day Max monthly doses: 20 for 30 days Active Lisinopril 5 MG TAKE ONE TABLET BY MOUTH EVERY DAY for 30 Active Fluconazole 150 MG 1 [...] refill the medication on 02/22/2021. Feb, Active Pioglitazone HCl 15 MG 1 [...] Treatment Notes Treatm ent Clinical Notes Feb, Lumbago with sciatica, right side (ICD-10 - [...] DAILY for 30 PARoxetine HCl 10 MG 1 tablet in the morning Orally Once a d ay for 30 day(s) Jan, HYDROcodone-Acetaminophen 7.5-325 MG 1 tablet as neede d Orally every 6 hrs for 28 days Feb, Lisinopril 5 MG TAKE ONE TABLET BY MOUTH EVERY DAY for 30 Pioglitazone HCl 15 MG 1 tablet Orally Once a day ALPRAZolam 1 MG 1 tablet Orally Twice a day for 28 days Feb, Insurance Providers Payer Name Payer Address Payer Phone Insured Name Patient Relati onship to Insured Coverage Start Date [facility] End [facility] [address] [place] [address] REFUGIO IBRAHIM
--- OUTSIDE RECORDS SUMMARY | 2021-04-23 15:54 | CCD ---
Author Author [facility] Organization [facility] Address Unknown Phone Unavailable Care Team Providers Care Manager Technology Name Role Phone Kumar Diaz Unavailable PROBLEMS Type Condition ICD9-CM Code [id number] Code Onset Dates Condition S tatus W/U Status Risk SNOMED Code Notes Problem PCOS (polycystic ovarian syndrome) 256.4 Activ e confirmed 91813731 Problem Other chronic pain G89.29 Active confirmed 8 5783143 Problem Anxiety F41.9 Active confirmed 09785472 Problem Depression, unspecified depression type F32.9 Active confirmed 31993832 Problem Tobacco use disorder F17.200 Active confirmed 510718134 Problem SUZANNA (generalized anxiety disorder) F41.1 Activ e confirmed 04686222 Problem Migraine without aura and without status migrain osus, not intractable G43.009 Active confirmed 820823221 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 Activ e confirmed 579519956 Problem Lumbago with sciatica, right side M54.41 Active confirmed 452277121 Problem Essential hypertension I10 Active confirmed 56427996 ALLERGIES No Known Allergies ENCOUNTERS from 1982 to 2021-03-24 Encounter Location Date Provider Diagnosis [address] [phone] [place] [address] Mar, Kumar Diaz IMMUNIZATIONS No Information SOCIAL HISTORY Tobacco Use: [...] BY MOUTH EVERY DAY for 30 Active PARoxetine HCl 10 MG TAKE ONE TABLET BY MOUTH EVERY MORNING for 30 Active Pioglitazone HCl 15 MG 1 tablet Orally Once a day Active ALPRAZolam 1 MG 1 tablet Orally Twice a day for 28 days Mar, Active Fluconazole 150 MG 1 tablet [...] monthly doses: 20 for 30 days Active HYDROcodone-Acetaminophen 7.5-325 MG 1 tablet as neede d Orally every 6 hrs for 28 days Please refill the medication on 02/22/2021. Mar, Active PROCEDURES No Information RESULTS No Results REASON FOR VISIT hives MEDICAL (GENERAL) HISTORY Type Description Date Medical [...] TABLET BY MOUTH EVERY MORNING for 30 Pioglitazone HCl 15 MG 1 tablet Orally Once a day ALPRAZolam 1 MG 1 tablet Orally Twice a day for 28 days Mar, HYDROcodone-Acetaminophen 7.5-325 MG 1 tablet as neede d Orally every 6 hrs for 28 days Mar, Lisinopril 5 MG TAKE ONE TABLET BY MOUTH EVERY DAY for 30 Next Appt Details Provider Name:Alyson Garcia, 03-25 08:00:00 AM, [address] [place] [address], , [place], [address], Insurance Providers Payer Name Payer Address Payer Phone Insured Name Patient Relati onship to Insured Coverage Start Date Coverage End Date [facility] [address] [place] [address] REFUGIO IBRAHIM self
--- OUTSIDE RECORDS SUMMARY | 2021-04-23 15:54 | CCD ---
Author Author [facility] Organization [facility] Address Unknown Phone Unavailable Care Team Providers Care Trademark Attorney Name Role Phone Kumar Diaz Unavailable PROBLEMS Type Condition ICD9-CM Code [id number] Code Onset Dates Condition S tatus W/U Status Risk SNOMED Code Notes Problem PCOS (polycystic ovarian syndrome) 256.4 Activ e confirmed 19865712 Problem Other chronic pain G89.29 Active confirmed 8 6837851 Problem Anxiety F41.9 Active confirmed 33310086 Problem Depression, unspecified depression type F32.9 Active confirmed 80319857 Problem Tobacco use disorder F17.200 Active confirmed 743560899 Problem SUZANNA (generalized anxiety disorder) F41.1 Activ e confirmed 04041980 Problem Migraine without aura and without status migrain osus, not intractable G43.009 Active confirmed 708503499 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 Activ e confirmed 776172245 Problem Lumbago with sciatica, right side M54.41 Active confirmed 027532869 Problem Essential hypertension I10 Active confirmed 32313097 ALLERGIES No Known Allergies ENCOUNTERS from 1982 to 2021-02-13 Encounter Location Date Provider [place] [facility] [place] [address] [facility] [address] [phone] [place] [address] Feb, Kumar Diaz IMMUNIZATIONS No Information SOCIAL HISTORY [...] Information RESULTS No Results REASON FOR VISIT No Information MEDICAL (GENERAL) HISTORY Type Description Date Medical [...] Insured Coverage Start Date Coverage End Date [facility] [address] [facility] [address] REFUGIO IBRAHIM self
--- OUTSIDE RECORDS SUMMARY | 2021-04-23 15:54 | CCD ---
Author Author [facility] Organization [facility] Address Unknown Phone Unavailable Care Team Providers Care Manager Clinic Name Role Phone Emily Kumar Unavailable PROBLEMS Type Condition ICD9-CM Code [id number] Code Onset Dates Condition S tatus W/U Status Risk SNOMED Code Notes Problem PCOS (polycystic ovarian syndrome) 256.4 Activ e confirmed 54959395 Problem Other chronic pain G89.29 Active confirmed 8 0699684 Problem Anxiety F41.9 Active confirmed 54989417 Problem Depression, unspecified depression type F32.9 Active confirmed 33753217 Problem Tobacco use disorder F17.200 Active confirmed 707584870 Problem SUZANNA (generalized anxiety disorder) F41.1 Activ e confirmed 82802935 Problem Migraine without aura and without status migrain osus, not intractable G43.009 Active confirmed 051213723 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 Activ e confirmed 539815464 Problem Lumbago with sciatica, right side M54.41 Active confirmed 827607391 Problem Essential hypertension I10 Active confirmed 63590208 ALLERGIES No Known Allergies ENCOUNTERS from 1982 to 2021-02-13 Encounter Location Date Provider Diagnosis [facility] Resident [address] [phone] [place] [address] 30 Jan, 2021 Kumar Diaz Type 2 diabetes me llitus without complication, without long-term current use of insulin E11.9 ; Tobacco use disorder F17.200 ; SUZANNA (generalized anxiety disorder) F41.1 ; Depression, unspecified depression type F32.9 ; Screening due Z13.9 and Cervical cancer screening Z12.4 IMMUNIZATIONS No Information SOCIAL HISTORY Tobacco Use: [...] do you smoke? 11-20 REASON FOR REFERRAL from 1982 to 2021-02-13 Reason Patient has history of diabe esa and her last A1c as per records is 8.8 patient never had an eye exam. Please evaluate. Diagnosis 1 Type 2 diabetes mellitus wit hout complication, without long-term current use of insulin (E11.9) Referral Organization [facility] Resident Referring Provider First Name Kumar Referring Provider Last Name Emily Referring Provider Specialty Internal Medicine Referred Provider Andrea Arreaga Referred Provider Specialty Ophthalmology Referral Priority Routine General Notes Melissa Will 02/09/2021 4:49 :04 PM > Referral faxed Reason For annual examination, Pap and HPV testing if required. Please evaluate and treat Diagnosis 1 Cervical cancer screening (Z 12.4) Referral Organization [facility] Resident Referring Provider First Name Kumar Referring Provider Last Name Emily Referring Provider Specialty Internal Medicine Referred Organization [facility] Referred Provider Isis Lang Referred Address [address] [place], [place] [phone] [place] [phone] Referred Provider Specialty OB - Gynecology Referral Priority Routine General Notes Melissa Will 02/09/2021 4:48 :21 PM > Reeferral sent P2P Reason Created in error Diagnosis 1 Cervical cancer screening (Z 12.4) Referral Organization [facility] Resident Referring Provider First Name Kumar Referring Provider Last Name Emily Referring Provider Specialty Internal Medicine Referred Provider Specialty OB - Gynecology Referral Priority Routine VITAL SIGNS Weight 160.2 lbs Jan, Height 62 in Jan, BMI 29.30 kg/m2 Jan, Heart Rate 93 /min Jan, Respiratory Rate 18 /min Jan, Temperature 98.2 degrees Fahrenheit Jan, Oximetry 100 Jan, Blood pressure systolic 130 mm Hg Jan, Blood pressure diastolic 70 mm Hg Jan, MEDICATIONS Medication SIG (Take, Route, Frequency, Duration) [...] Information RESULTS No Results REASON FOR VISIT diabetic follow up MEDICAL (GENERAL) HISTORY Type Description Date Medical [...] Notes Treatment Notes Treatm ent Clinical Notes Jan, Type 2 diabetes mellitus wit hout complication, without long-term current use of insulin (ICD-10 - E11.9) -As mentioned in the history patient is not on Metformin due to her side effect of medication [sleepy and drowsiness], not on GLP-1 because of acute pancreatitis. Not on SGLT2 due to UTI with ESBL. -We will continue the same regimen of insulin 28 units Basaglar, glipizide and pioglitazone for now -We will check her A1c based on her A1c level will consider increasing her insulin. -We will get a lipid panel and see if she needs to be on statin. -As patient never had her eye examined we will refer her to ophthalmology. -Patient does not have any neuropathy [diabetic foot examination done during the encounter] Jan, Tobacco use disorder (ICD-10 - F17.200) -Patient is right now smoking 1 pack/day. Patient was educated about the side effects of smoking including . She verbalized understanding. -She was given an option of nicotine patches or gums but she refused to start them at this point. But want to try decreasing 1 cigarette/week until she comes down to one or 2 cigarettes and then start the patches. -She reports its not the cravings which prompted her to increase the cigarettes, it is the stress in her life. -Patient is precontemplative and wants to cut down the number of cigarettes per week gradually and stop smoking altogether. -I have an appointment set up in 3 months and patient was optimistic that she would cut down her smoking [number of cigarettes] by then. Jan, SUZANNA (generalized anxiety disorder) (ICD-10 - F41 .1) -Patient is taking 1 mg of alprazolam twice daily which is a lot. -We will decrease her dose of alprazolam 0.5 mg and see how she can tolerate that. -Given that we are starting her on antidepressant it should help her with her anxiety and depression issues. - She is also on norco for her pain, Plan is gradually decrease and stop alprazolam. - did start her on SSRI for depression. During the next appinment will consider completely stopping her alprazolam. Jan, Depression, unspecified depression type (ICD-10 - F32.9) -Patient reports that she has lots of stress in her life and is feeling depressed and her PHQ-9 score is 21. -She reports her mother and her sisters takes paroxetine for depression. We will start her on the same medication at a lower dose and see how she will tolerate that. -Patient was also requesting a referral to psychologist that she can talk to somebody. When I call her to talk about her A1c levels next week will inform the patient regarding the psychology walk-in appointment. -I did ask her in particular does she have any suicidal thoughts she denies having any. Jan, Screening due (ICD-10 - Z13.9) -Patient did agree to do HIV, hep C, hep B testing if not done earlier. I did check the Pfenex and it was not done. Jan, Cervical cancer screening (ICD-10 - Z12.4) - will send patient to [facility] for annual examination. Jan, Other To discuss in next appoinment: - will need to completely stopping her alprazolam during next appoinment, as she is on norco for her back pain as well. Her dose was decreased durirng this visit to 0.5mg BID from 1gm BID. - Started patient on SSRI for depression, follow on how she is doing. - regarding her smoking cessation/ decrease number of PPD and date to quit. PLAN OF TREATMENT Medication Medication Name Sig [...] Feb, Treatment Notes Assessment Notes Clinical Notes Type 2 diabetes mellitus without complic ation, without long-term current use of insulin -As mentioned in the history patient is not on Metformin due to her side effect of medication [sleepy and drowsiness], not on GLP-1 because of acute pancreatitis. Not on SGLT2 due to UTI with ESBL.-We will continue the same regimen of insulin 28 units Basaglar, glipizide and pioglitazone for now-We will check her A1c based on her A1c level will consider increasing her insulin.-We will get a lipid panel and see if she needs to be on statin.-As patient never had her eye examined we will refer her to ophthalmology.-Patient does not have any neuropathy [diabetic foot examination done during the encounter] Tobacco use disorder -Patient is right n ow smoking 1 pack/day. Patient was educated about the side effects of smoking including . She verbalized understanding.-She was given an option of nicotine patches or gums but she refused to start them at this point. But want to try decreasing 1 cigarette/week until she comes down to one or 2 cigarettes and then start the patches.-She reports its not the cravings which prompted her to increase the cigarettes, it is the stress in her life.-Patient is precontemplative and wants to cut down the number of cigarettes per week gradually and stop smoking altogether.-I have an appointment set up in 3 months and patient was optimistic that she would cut down her smoking [number of cigarettes] by then. SUZANNA (generalized anxiety disorder) -Carrie bowers is taking 1 mg of alprazolam twice daily which is a lot.-We will decrease her dose of alprazolam 0.5 mg and see how she can tolerate that.-Given that we are starting her on antidepressant it sh ould help her with her anxiety and depression issues.- She is also on norco for her pain, Plan is gradually decrease and stop alprazolam.- did start her on SSRI for depression. During the next appinment will consider completely stopping her alprazolam. Depression, unspecified depression type -Patient reports that she has lots of stress in her life and is feeling depressed and her PHQ-9 score is 21.-She reports her mother and her sisters takes paroxetine for depression. We will start her on the same medication at a lower dose and see how she will tolerate that.-Patient was also requesting a referral to psychologist that she can talk to somebody. When I call her to talk about her A1c levels next week will inform the patient regarding the psychology walk-in appointment.-I did ask her in particular does she have any suicidal thoughts she denies having any. Screening due -Patient did agree t o do HIV, hep C, hep B testing if not done earlier. I did check the Pfenex and it was not done. Cervical cancer screening - will send david sorto to [facility] for annual examination. Future Test Test Name Order Date HIV 1&2 ANTIBODY SCREEN [id number] HEPATITIS C ANTIBODY INDEX [id number] HEPATITIS B SURFACE ANTIBODY [id number] HEPATITIS B CORE ANTIBODY IGG [id number] HEPATITIS B CORE ANTIBODY IGM 02273435 HEMOGLOBIN A1c [id number] LIPID PANEL (CARDIAC RISK) [id number] Referrals Referral Date Details Patient has history of diabe esa and her last A1c as per records is 8.8 patient never had an eye exam. Please evaluate., Andrea Arreaga For annual examination, Pap and HPV testing if required. Please evaluate and treat, Isis Lang, [facility] [place], [address], Created in error Next Appt Details 3 Months Reason:Follow-up of diabetes, d epression, anxiety. Follow Up:3 MonthsFollow-up of diabetes, depression, anxiety. Insurance Providers Payer Name Payer Address Payer Phone Insured Name Patient Relati onship to Insured Coverage Start Date Coverage End Date [facility] [address] [facility] [id number] [employer]IM self
--- OUTSIDE RECORDS SUMMARY | 2021-04-23 15:54 | CCD ---
Author Author [facility] Organization [facility] Address Unknown Phone Unavailable Care Team Providers Care Packing House Supervisor Name Role Phone Jose Alyson Unavailable PROBLEMS Type Condition ICD9-CM Code [id number] Code Onset Dates Condition S tatus W/U Status Risk SNOMED Code Notes Problem PCOS (polycystic ovarian syndrome) 256.4 Activ e confirmed 16132055 Problem Other chronic pain G89.29 Active confirmed 8 5351000 Problem Anxiety F41.9 Active confirmed 83870896 Problem Depression, unspecified depression type F32.9 Active confirmed 93527987 Problem Tobacco use disorder F17.200 Active confirmed 715025464 Problem SUZANNA (generalized anxiety disorder) F41.1 Activ e confirmed 36306530 Problem Migraine without aura and without status migrain osus, not intractable G43.009 Active confirmed 079613662 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 Activ e confirmed 990086755 Problem Lumbago with sciatica, right side M54.41 Active confirmed 875976890 Problem Essential hypertension I10 Active confirmed 88694504 ALLERGIES No Known Allergies ENCOUNTERS from 1982 to 2021-03-25 Encounter Location Date Provider Diagnosis [address] [phone] [place] [address] Mar, Alyson Garcia IMMUNIZATIONS No Information SOCIAL HISTORY Tobacco Use: [...] RESULTS No Results REASON FOR VISIT No Show Informational Letter MEDICAL (GENERAL) HISTORY Type Description Date Medical [...] TABLET BY MOUTH EVERY DAY for 30 Insurance Providers Payer Name Payer Address Payer Phone Insured Name Patient Relati onship to Insured Coverage Start Date Coverage End Date [facility] [address] [place] [id number] RE[employer] IBRAHIM self
--- OUTSIDE RECORDS SUMMARY | 2021-04-23 15:55 | CCD ---
Author Author [facility] Organization [facility] Address Unknown Phone Unavailable Care Team Providers Care Supervisor [employer] Name Role Phone Edenilson Hopper MD Unavailable Unavailable Edenilson Hopper MD Unavailable Unavailable Edenilson Hopper MD Unavailable Unavailable Edenilson Hopper MD Unavailable Unavailable Edenilson Hopper MD Unavailable Unavailable Edenilson Hopper MD Unavailable Unavailable Edenilson Hopper MD Unavailable Unavailable Edenilson Hopper MD Unavailable Unavailable Edenilson Hopper MD Unavailable Unavailable Edenilson Hopper MD Unavailable Unavailable Edenilson Hopper MD Unavailable Unavailable Edenilson Hopper MD Unavailable Unavailable Edenilson Hopper MD Unavailable Unavailable Edenilson Hopper MD Unavailable Unavailable Edenilson Hopper MD Unavailable Unavailable Edenilson Hopper MD Unavailable Unavailable Edenilson Hopper MD Unavailable Unavailable Edenilson Hopper MD Unavailable Unavailable Edenilson Hopper MD Unavailable Unavailable Edenilson Hopper MD Unavailable Unavailable Edenilson Hopper MD Unavailable Unavailable Edenilson Hopper MD Unavailable Unavailable Edenilson Hopper MD Unavailable Unavailable Edenilson Hopper MD Unavailable Unavailable Edenilson Hopper MD Unavailable Unavailable Edenilson Hopper MD Unavailable Unavailable Edenilson Hopper MD Unavailable Unavailable Edenilson Hopper MD Unavailable Unavailable Edenilson Hopper MD Unavailable Unavailable Edenilson Hopper MD Unavailable Unavailable Edenilson Hopper MD Unavailable Unavailable Edenilson Hopper MD Unavailable Unavailable Edenilson Hoppre MD Unavailable Unavailable Edenilson Hopper MD Unavailable Unavailable Edenilson Hopper MD Unavailable Unavailable Ruchi, Edenilson Walters MD Unavailable Unavailable Ruchi, Edenilson Walters MD Unavailable Unavailable [place], Edenilson Walters MD Unavailable Unavailable Ruchi, Edenilson Walters MD Unavailable Unavailable Ruchi, Edenilson Walters MD Unavailable Unavailable [place], Edenilson Walters MD Unavailable Unavailable Ruchi, Edenilson Walters MD Unavailable Unavailable [place], Edenilson Walters MD Unavailable Unavailable [place], Edenilson Walters MD Unavailable Unavailable [place], Edenilson Walters MD Unavailable Unavailable Ruchi, Edenilson Walters MD Unavailable Unavailable [place], Edenilson Walters MD Unavailable Unavailable [place], Edenilson Walters MD Unavailable Unavailable Ruchi, Edenilson Walters MD Unavailable Unavailable Ruchi, Edenilson Walters MD Unavailable Unavailable [place], Edenilson Walters MD Unavailable Unavailable Ruchi, Edenilson Walters MD Unavailable Unavailable [place], Edenilson Walters MD Unavailable Unavailable Ruchi, Edenilson Walters MD Unavailable Unavailable [place], Edenilson Walters MD Unavailable Unavailable Juan Alberto, C Nicholas PA Unavailable Unavailable [place], C Nicholas PA Unavailable Unavailable [place], C Nicholas PA Unavailable Unavailable Juan Alberto, C Nicholas PA Unavailable Unavailable [place], C Nicholas PA Unavailable Unavailable [place], C Nicholas PA Unavailable Unavailable [place], C Nicholas PA Unavailable Unavailable [place], C Nicholas PA Unavailable Unavailable [place], C Nicholas PA Unavailable Unavailable [place], C Nicholas PA Unavailable Unavailable Juan Alberto, C Nicholas PA Unavailable Unavailable [place], C Nicholas PA Unavailable Unavailable Juan Alberto, C Nicholas PA Unavailable Unavailable Juan Alberto, C Nicholas PA Unavailable Unavailable [place], C Nicholas PA Unavailable Unavailable Isaiah Navarrete MD Unavailable Unavailable Isaiah Navarrete MD Unavailable Unavailable Isaiah Navarrete MD Unavailable Unavailable Isaiah Navarrete MD Unavailable Unavailable Isaiah Navarrete MD Unavailable Unavailable Isaiah Navarrete MD Unavailable Unavailable Re-disclosure Warning The records that [...] is protected by Article 27-F of the [facility] Public Health law. If you continue you may have access to information: Regarding HIV / AIDS; Provided by facilities licensed or operated by the [facility] Office of Mental Health; or Provided by the [facility] Office for People With Developmental Disabilities. If such information is present, then the following [facility] mandated warning applies: This information has [...] law may result in a fine or shelter sentence or both. A general authorization for the release of medical or other information is NOT sufficient authorization for further disc losure. Encounters Encounter Providers Location Date Indications Data Source(s ) Unknown [address] [facility] [place] [address] 04/15/2021 12:00:00 AM EDT eCW1 ([facility]) Outpatient Attender: Nicholas GONCALVES 2020 02:44:56 PM EDT - 04/13/2021 04:33:42 PM EDT DocuTap ([facility] ) Unknown [address] [facility] Y [address] 04/07/2021 12:00:00 AM EDT eCW1 ([facility]) Unknown [address] [facility] Y [address] 03/25/2021 12:00:00 AM EDT eCW1 ([facility]) Unknown [address] [facility] [address] [place] [address] 03/24/2021 12:00:00 AM EDT eCW1 ([facility]) Unknown [address] [facility] [address] [place] [address] 03/17/2021 12:00:00 AM EDT eCW1 ([facility]) Unknown [address] [facility] [place] [address] 03/10/2021 12:00:00 AM EDT eCW1 ([facility]) Unknown [address] [facility] [place] [address] 02/19/2021 12:00:00 AM EDT eCW1 ([facility]) Unknown [address] [facility] [place] [address] 02/13/2021 12:00:00 AM EDT eCW1 ([facility]) Unknown [address] [facility] [place] [address] 02/13/2021 12:00:00 AM EDT eCW1 ([facility]) Unknown [address] [facility] [place] [address] 02/09/2021 12:00:00 AM EDT eCW1 ([facility]) Outpatient [address] [facility] [place] [address] 02/06/2021 12:00:00 AM EDT eCW1 ([facility]) Unknown [address] [facility] [place] [address] 01/20/2021 12:00:00 AM EDT eCW1 ([facility]) Unknown [address] [facility] [place] [address] 01/14/2021 12:00:00 AM EDT eCW1 ([facility]) Unknown [address] [facility] [place] [address] 12/25/2020 12:00:00 AM EDT eCW1 ([facility]) Unknown [address] [facility] [place] [address] 12/15/2020 12:00:00 AM EDT eCW1 ([facility]) Unknown [address] [facility] [place] [address] 11/27/2020 12:00:00 AM EDT eCW1 ([facility]) Outpatient [address] [facility] [place] [address] 11/24/2020 12:00:00 AM EDT eCW1 ([facility]) Unknown [address] [facility] [place] [address] 11/24/2020 12:00:00 AM EDT eCW1 ([facility]) Unknown [address] [facility] [place] [address] 11/18/2020 12:00:00 AM EDT eCW1 ([facility]) Unknown [address] [facility] [place] [address] 10/30/2020 12:00:00 AM EDT eCW1 ([facility]) Unknown [address] [facility] [place] [address] 10/30/2020 12:00:00 AM EDT eCW1 ([facility]) Unknown [address] [facility] [place] [address] 10/27/2020 12:00:00 AM EDT eCW1 ([facility]) Unknown [address] [facility] [place] [address] 10/26/2020 12:00:00 AM EDT eCW1 ([facility]) Unknown [address] [facility] [place] [address] 10/25/2020 12:00:00 AM EDT [facility]CW1 [facility]patient [address] [facility] [place] [address] 10/24/2020 12:00:00 AM EDT eCW1 ([facility]) Unknown [address] [facility] [place] [address] 10/22/2020 12:00:00 AM EDT eCW1 [facility] Emergency Attender: Isaiah Navarrete MDConsultant: Romeo Hopper MD 10/19/2020 06:44:00 PM EDT - 10/19/2020 10:15:00 PM EDT [facility] Patient discharged. Unknown [address] [facility] [place] [address] 10/19/2020 12:00:00 AM EDT eCW1 ([facility]) Unknown [address] [facility] [place] [address] 10/02/2020 12:00:00 AM EDT eCW1 ([facility]) Outpatient [address] [facility] [place] [address] 09/24/2020 12:00:00 AM EDT eCW1 ([facility]) Unknown [address] [facility] [place] [address] 09/19/2020 12:00:00 AM EST eCW1 ([facility]) Unknown [address] [facility] [place] [address] 09/08/2020 12:00:00 AM EST eCW1 ([facility]) Unknown [address] [facility] [place] [address] 09/04/2020 12:00:00 AM EST eCW1 ([facility]) Outpatient [address] [facility] [place] [address] 09/01/2020 12:00:00 AM EST eCW1 ([facility]) Unknown [address] [facility] [place] [address] 08/26/2020 12:00:00 AM EST eCW1 ([facility]) Unknown [address] [facility] [place] [address] 08/21/2020 12:00:00 AM EST eCW1 ([facility]) Unknown [address] [facility] [place] [address] 08/05/2020 12:00:00 AM EST eCW1 ([facility]) Unknown [address] [facility] [place] [address] 07/24/2020 12:00:00 AM EST eCW1 ([facility]) Outpatient [address] [facility] [place] [address] 07/18/2020 12:00:00 AM EST eCW1 ([facility]) Unknown [address] [facility] [place] [address] 07/08/2020 12:00:00 AM EST eCW1 ([facility]) Unknown [address] [facility] [place] [address] 07/07/2020 12:00:00 AM EST eCW1 ([facility]) Unknown [address] [facility] [place] [address] 07/01/2020 12:00:00 AM EST eCW1 ([facility]) Outpatient [address] [facility] [place] [address] 06/26/2020 12:00:00 AM EST eCW1 ([facility]) Outpatient LERAYDC 05/13/2020 10:00:00 AM EST [facility] Outpatient [facility] 05/13/2020 09:51:01 AM EST [facility] Outpatient [facility] 05/13/2020 09:49:00 AM EST [facility] Outpatient [facility] 05/13/2020 09:48:00 AM EST [facility] Outpatient ALL 05/13/2020 08:54:00 AM EST [facility] Outpatient ALL 05/13/2020 08:54:00 AM [facility] Medications Medication Brand Name Start Date Product Form Dose Route Admi nistrative Instructions Pharmacy Instructions Status Indications Reaction Description Data Source(s) Acetaminophen 325 MG / Hydrocodone Ju trate 7.5 MG Oral Tablet HYDROcodone- Acetaminophen 7.5-325 MG HYDROcodone-Acetaminophen 7.5-325 MG 04/16/2021 12:00:00 AM EDT 1.0 {tablet_as_needed} active HYDROcodone- Acetaminophen 7.5-325 MG eCW1 ([facility]) Alprazolam 1 MG Oral Tablet ALPRAZolam 1 MG ALPRAZolam 1 MG 04/07/2021 12:00:00 AM EDT 1.0 {tablet} active ALPRAZolam 1 MG eCW1 ([facility]) Alprazolam 1 MG Oral Tablet ALPRAZolam 1 MG ALPRAZolam 1 MG 04/07/2021 12:00:00 AM EDT 1.0 {tablet} active ALPRAZolam 1 MG eCW1 ([facility]) Acetaminophen 325 MG / Hydrocodone Ju trate 7.5 MG Oral Tablet HYDROcodone- Acetaminophen 7.5-325 MG HYDROcodone-Acetaminophen 7.5-325 MG 03/23/2021 12:00:00 AM EDT 1.0 {tablet_as_needed} active HYDROcodone- Acetaminophen 7.5-325 MG eCW1 ([facility]) Acetaminophen 325 MG / Hydrocodone Ju trate 7.5 MG Oral Tablet HYDROcodone- Acetaminophen 7.5-325 MG HYDROcodone-Acetaminophen 7.5-325 MG 03/23/2021 12:00:00 AM EDT 1.0 {tablet_as_needed} active HYDROcodone- Acetaminophen 7.5-325 MG eCW1 ([facility]) Acetaminophen 325 MG / Hydrocodone Ju trate 7.5 MG Oral Tablet HYDROcodone- Acetaminophen 7.5-325 MG HYDROcodone-Acetaminophen 7.5-325 MG 03/23/2021 12:00:00 AM EDT 1.0 {tablet_as_needed} active HYDROcodone- Acetaminophen 7.5-325 MG eCW1 ([facility]) Acetaminophen 325 MG / Hydrocodone Ju trate 7.5 MG Oral Tablet HYDROcodone- Acetaminophen 7.5-325 MG HYDROcodone-Acetaminophen 7.5-325 MG 03/23/2021 12:00:00 AM EDT 1.0 {tablet_as_needed} active HYDROcodone- Acetaminophen 7.5-325 MG eCW1 ([facility]) Alprazolam 1 MG Oral Tablet ALPRAZolam 1 MG ALPRAZolam 1 MG 03/13/2021 12:00:00 AM EDT 1.0 {tablet} active ALPRAZolam 1 MG eCW1 ([facility]) Alprazolam 1 MG Oral Tablet ALPRAZolam 1 MG ALPRAZolam 1 MG 03/13/2021 12:00:00 AM EDT 1.0 {tablet} active ALPRAZolam 1 MG eCW1 ([facility]) Alprazolam 1 MG Oral Tablet ALPRAZolam 1 MG ALPRAZolam 1 MG 03/13/2021 12:00:00 AM EDT 1.0 {tablet} active ALPRAZolam 1 MG eCW1 ([facility]) Alprazolam 1 MG Oral Tablet ALPRAZolam 1 MG ALPRAZolam 1 MG 03/13/2021 12:00:00 AM EDT 1.0 {tablet} active ALPRAZolam 1 MG eCW1 ([facility]) Acetaminophen 325 MG / Hydrocodone Ju trate 7.5 MG Oral Tablet HYDROcodone- Acetaminophen 7.5-325 MG HYDROcodone-Acetaminophen 7.5-325 MG 2021 12:00:00 AM EDT 1.0 {tablet_as_needed} active HYDROcodone- Acetaminophen 7.5-325 MG eCW1 ([facility]) Acetaminophen 325 MG / Hydrocodone Ju trate 7.5 MG Oral Tablet HYDROcodone- Acetaminophen 7.5-325 MG HYDROcodone-Acetaminophen 7.5-325 MG 2021 12:00:00 AM EDT 1.0 {tablet_as_needed} active HYDROcodone- Acetaminophen 7.5-325 MG eCW1 ([facility]) Alprazolam 1 MG Oral Tablet ALPRAZolam 1 MG ALPRAZolam 1 MG 02/13/2021 12:00:00 AM EDT 1.0 {tablet} active ALPRAZolam 1 MG eCW1 ([facility]) Alprazolam 1 MG Oral Tablet ALPRAZolam 1 MG ALPRAZolam 1 MG 02/13/2021 12:00:00 AM EDT 1.0 {tablet} active ALPRAZolam 1 MG eCW1 ([facility]) Alprazolam 1 MG Oral Tablet ALPRAZolam 1 MG ALPRAZolam 1 MG 02/13/2021 12:00:00 AM EDT 1.0 {tablet} active ALPRAZolam 1 MG eCW1 ([facility]) Alprazolam 1 MG Oral Tablet ALPRAZolam 1 MG ALPRAZolam 1 MG 02/13/2021 12:00:00 AM EDT 1.0 {tablet} active ALPRAZolam 1 MG eCW1 ([facility]) Alprazolam 1 MG Oral Tablet ALPRAZolam 1 MG ALPRAZolam 1 MG 02/13/2021 12:00:00 AM EDT 1.0 {tablet} active ALPRAZolam 1 MG eCW1 ([facility]) PARoxetine HCl 10 MG PARoxetine HCl 10 MG 02/06/2021 12:00:00 AM ED T 1.0 {tablet_in_the_morning} active PARoxeti ne HCl 10 MG eCW1 ([facility]) PARoxetine HCl 10 MG PARoxetine HCl 10 MG 02/06/2021 12:00:00 AM ED T 1.0 {tablet_in_the_morning} active PARoxeti ne HCl 10 MG eCW1 ([facility]) PARoxetine HCl 10 MG PARoxetine HCl 10 MG 02/06/2021 12:00:00 AM ED T 1.0 {tablet_in_the_morning} active PARoxeti ne HCl 10 MG eCW1 ([facility]) PARoxetine HCl 10 MG PARoxetine HCl 10 MG 02/06/2021 12:00:00 AM ED T 1.0 {tablet_in_the_morning} active PARoxeti ne HCl 10 MG eCW1 ([facility]) PARoxetine HCl 10 MG PARoxetine HCl 10 MG 02/06/2021 12:00:00 AM ED T 1.0 {tablet_in_the_morning} active PARoxeti ne HCl 10 MG eCW1 ([facility]) Acetaminophen 325 MG / Hydrocodone Ju trate 7.5 MG Oral Tablet HYDROcodone- Acetaminophen 7.5-325 MG HYDROcodone-Acetaminophen 7.5-325 MG 01/23/2021 12:00:00 AM EDT 1.0 {tablet_as_needed} active HYDROcodone- Acetaminophen 7.5-325 MG eCW1 ([facility]) Acetaminophen 325 MG / Hydrocodone Ju trate 7.5 MG Oral Tablet HYDROcodone- Acetaminophen 7.5-325 MG HYDROcodone-Acetaminophen 7.5-325 MG 01/23/2021 12:00:00 AM EDT 1.0 {tablet_as_needed} active HYDROcodone- Acetaminophen 7.5-325 MG eCW1 ([facility]) Acetaminophen 325 MG / Hydrocodone Ju trate 7.5 MG Oral Tablet HYDROcodone- Acetaminophen 7.5-325 MG HYDROcodone-Acetaminophen 7.5-325 MG 01/23/2021 12:00:00 AM EDT 1.0 {tablet_as_needed} active HYDROcodone- Acetaminophen 7.5-325 MG eCW1 ([facility]) Acetaminophen 325 MG / Hydrocodone Ju trate 7.5 MG Oral Tablet HYDROcodone- Acetaminophen 7.5-325 MG HYDROcodone-Acetaminophen 7.5-325 MG 01/23/2021 12:00:00 AM EDT 1.0 {tablet_as_needed} active HYDROcodone- Acetaminophen 7.5-325 MG eCW1 ([facility]) Acetaminophen 325 MG / Hydrocodone Ju trate 7.5 MG Oral Tablet HYDROcodone- Acetaminophen 7.5-325 MG HYDROcodone-Acetaminophen 7.5-325 MG 01/23/2021 12:00:00 AM EDT 1.0 {tablet_as_needed} active HYDROcodone- Acetaminophen 7.5-325 MG eCW1 ([facility]) Acetaminophen 325 MG / Hydrocodone Ju trate 7.5 MG Oral Tablet HYDROcodone- Acetaminophen 7.5-325 MG HYDROcodone-Acetaminophen 7.5-325 MG 12/28/2020 12:00:00 AM EDT 1.0 {tablet_as_needed} active HYDROcodone- Acetaminophen 7.5-325 MG eCW1 ([facility]) Acetaminophen 325 MG / Hydrocodone Ju trate 7.5 MG Oral Tablet HYDROcodone- Acetaminophen 7.5-325 MG HYDROcodone-Acetaminophen 7.5-325 MG 12/28/2020 12:00:00 AM EDT 1.0 {tablet_as_needed} active HYDROcodone- Acetaminophen 7.5-325 MG eCW1 ([facility]) Acetaminophen 325 MG / Hydrocodone Ju trate 7.5 MG Oral Tablet Hydrocodone- Acetaminophen 7.5-325 MG Hydrocodone-Acetaminophen 7.5-325 MG 11/30/2020 12:00:00 AM EDT 1.0 {tablet_as_needed} active Hydrocodone- Acetaminophen 7.5-325 MG eCW1 ([facility]) Acetaminophen 325 MG / Hydrocodone Ju trate 7.5 MG Oral Tablet Hydrocodone- Acetaminophen 7.5-325 MG Hydrocodone-Acetaminophen 7.5-325 MG 11/30/2020 12:00:00 AM EDT 1.0 {tablet_as_needed} active Hydrocodone- Acetaminophen 7.5-325 MG eCW1 ([facility]) Acetaminophen 325 MG / Hydrocodone Ju trate 7.5 MG Oral Tablet Hydrocodone- Acetaminophen 7.5-325 MG Hydrocodone-Acetaminophen 7.5-325 MG 11/30/2020 12:00:00 AM EDT 1.0 {tablet_as_needed} active Hydrocodone- Acetaminophen 7.5-325 MG eCW1 ([facility]) Acetaminophen 325 MG / Hydrocodone Ju trate 7.5 MG Oral Tablet Hydrocodone- Acetaminophen 7.5-325 MG Hydrocodone-Acetaminophen 7.5-325 MG 10/31/2020 12:00:00 AM EDT 1.0 {tablet_as_needed} active Hydrocodone- Acetaminophen 7.5-325 MG eCW1 ([facility]) Acetaminophen 325 MG / Hydrocodone Ju trate 7.5 MG Oral Tablet Hydrocodone- Acetaminophen 7.5-325 MG Hydrocodone-Acetaminophen 7.5-325 MG 10/31/2020 12:00:00 AM EDT 1.0 {tablet_as_needed} active Hydrocodone- Acetaminophen 7.5-325 MG eCW1 ([facility]) Acetaminophen 325 MG / Hydrocodone Ju trate 7.5 MG Oral Tablet Hydrocodone- Acetaminophen 7.5-325 MG Hydrocodone-Acetaminophen 7.5-325 MG 10/31/2020 12:00:00 AM EDT 1.0 {tablet_as_needed} active Hydrocodone- Acetaminophen 7.5-325 MG eCW1 ([facility]) Acetaminophen 325 MG / Hydrocodone Ju trate 7.5 MG Oral Tablet Hydrocodone- Acetaminophen 7.5-325 MG Hydrocodone-Acetaminophen 7.5-325 MG 10/31/2020 12:00:00 AM EDT 1.0 {tablet_as_needed} active Hydrocodone- Acetaminophen 7.5-325 MG eCW1 ([facility]) Acetaminophen 325 MG / Hydrocodone Ju trate 7.5 MG Oral Tablet Hydrocodone- Acetaminophen 7.5-325 MG Hydrocodone-Acetaminophen 7.5-325 MG 10/31/2020 12:00:00 AM EDT 1.0 {tablet_as_needed} active Hydrocodone- Acetaminophen 7.5-325 MG eCW1 ([facility]) Acetaminophen 325 MG / Hydrocodone Ju trate 7.5 MG Oral Tablet Hydrocodone- Acetaminophen 7.5-325 MG Hydrocodone-Acetaminophen 7.5-325 MG 10/31/2020 12:00:00 AM EDT 1.0 {tablet_as_needed} active Hydrocodone- Acetaminophen 7.5-325 MG eCW1 ([facility]) Lisinopril 5 MG Oral Tablet Lisinopril 5 MG 10/25/2020 12:00:00 AM EDT 1.0 {tablet} active Lisinopril 5 MG eCW1 ([facility]) Lisinopril 5 MG Oral Tablet Lisinopril 5 MG 10/25/2020 12:00:00 AM EDT 1.0 {tablet} active Lisinopril 5 MG eCW1 ([facility]) Lisinopril 5 MG Oral Tablet Lisinopril 5 MG 10/25/2020 12:00:00 AM EDT 1.0 {tablet} active Lisinopril 5 MG eCW1 ([facility]) Lisinopril 5 MG Oral Tablet Lisinopril 5 MG 10/25/2020 12:00:00 AM EDT 1.0 {tablet} active Lisinopril 5 MG eCW1 ([facility]) Lisinopril 5 MG Oral Tablet Lisinopril 5 MG 10/25/2020 12:00:00 AM EDT 1.0 {tablet} active Lisinopril 5 MG eCW1 ([facility]) Lisinopril 5 MG Oral Tablet Lisinopril 5 MG 10/25/2020 12:00:00 AM EDT 1.0 {tablet} active Lisinopril 5 MG eCW1 ([facility]) Lisinopril 5 MG Oral Tablet Lisinopril 5 MG 10/25/2020 12:00:00 AM EDT 1.0 {tablet} active Lisinopril 5 MG eCW1 ([facility]) Lisinopril 5 MG Oral Tablet Lisinopril 5 MG 10/25/2020 12:00:00 AM EDT 1.0 {tablet} active Lisinopril 5 MG eCW1 ([facility]) Acetaminophen 325 MG / Hydrocodone Ju trate 7.5 MG Oral Tablet Hydrocodone- Acetaminophen 7.5-325 MG Hydrocodone-Acetaminophen 7.5-325 MG 10/05/2020 12:00:00 AM EDT 1.0 {tablet_as_needed} active Hydrocodone- Acetaminophen 7.5-325 MG eCW1 ([facility]) Acetaminophen 325 MG / Hydrocodone Ju trate 7.5 MG Oral Tablet Hydrocodone- Acetaminophen 7.5-325 MG Hydrocodone-Acetaminophen 7.5-325 MG 10/05/2020 12:00:00 AM EDT 1.0 {tablet_as_needed} active Hydrocodone- Acetaminophen 7.5-325 MG eCW1 ([facility]) Acetaminophen 325 MG / Hydrocodone Ju trate 7.5 MG Oral Tablet Hydrocodone- Acetaminophen 7.5-325 MG Hydrocodone-Acetaminophen 7.5-325 MG 10/05/2020 12:00:00 AM EDT 1.0 {tablet_as_needed} active Hydrocodone- Acetaminophen 7.5-325 MG eCW1 ([facility]) Acetaminophen 325 MG / Hydrocodone Ju trate 7.5 MG Oral Tablet Hydrocodone- Acetaminophen 7.5-325 MG Hydrocodone-Acetaminophen 7.5-325 MG 10/05/2020 12:00:00 AM EDT 1.0 {tablet_as_needed} active Hydrocodone- Acetaminophen 7.5-325 MG eCW1 ([facility]) Acetaminophen 325 MG / Hydrocodone Ju trate 7.5 MG Oral Tablet Hydrocodone- Acetaminophen 7.5-325 MG Hydrocodone-Acetaminophen 7.5-325 MG 10/05/2020 12:00:00 AM EDT 1.0 {tablet_as_needed} active Hydrocodone- Acetaminophen 7.5-325 MG eCW1 ([facility]) Acetaminophen 325 MG / Hydrocodone Ju trate 7.5 MG Oral Tablet Hydrocodone- Acetaminophen 7.5-325 MG Hydrocodone-Acetaminophen 7.5-325 MG 10/05/2020 12:00:00 AM EDT 1.0 {tablet_as_needed} active Hydrocodone- Acetaminophen 7.5-325 MG eCW1 ([facility]) Acetaminophen 325 MG / Hydrocodone Ju trate 7.5 MG Oral Tablet Hydrocodone- Acetaminophen 7.5-325 MG Hydrocodone-Acetaminophen 7.5-325 MG 09/07/2020 12:00:00 AM EST 1.0 {tablet_as_needed} active Hydrocodone- Acetaminophen 7.5-325 MG eCW1 ([facility]) Acetaminophen 325 MG / Hydrocodone Ju trate 7.5 MG Oral Tablet Hydrocodone- Acetaminophen 7.5-325 MG Hydrocodone-Acetaminophen 7.5-325 MG 09/07/2020 12:00:00 AM EST 1.0 {tablet_as_needed} active Hydrocodone- Acetaminophen 7.5-325 MG eCW1 ([facility]) Acetaminophen 325 MG / Hydrocodone Ju trate 7.5 MG Oral Tablet Hydrocodone- Acetaminophen 7.5-325 MG Hydrocodone-Acetaminophen 7.5-325 MG 09/07/2020 12:00:00 AM EST 1.0 {tablet_as_needed} active Hydrocodone- Acetaminophen 7.5-325 MG eCW1 ([facility]) Acetaminophen 325 MG / Hydrocodone Ju trate 7.5 MG Oral Tablet Hydrocodone- Acetaminophen 7.5-325 MG Hydrocodone-Acetaminophen 7.5-325 MG 09/07/2020 12:00:00 AM EST 1.0 {tablet_as_needed} active Hydrocodone- Acetaminophen 7.5-325 MG eCW1 ([facility]) Acetaminophen 325 MG / Hydrocodone Ju trate 7.5 MG Oral Tablet Hydrocodone- Acetaminophen 7.5-325 MG Hydrocodone-Acetaminophen 7.5-325 MG 09/07/2020 12:00:00 AM EST 1.0 {tablet_as_needed} active Hydrocodone- Acetaminophen 7.5-325 MG eCW1 ([facility]) BD Pen Needle Mini U/F 31G X 5 MM BD Pen Needle Mini U/F 31G X 5 MM 09/01/2020 12:00:00 AM EST active BD Pen N eedle Mini U/F 31G X 5 MM eCW1 ([facility]) Basaglar KwikPen 100 UNIT/ML Basaglar KwikPen 100 UNIT/ML 12:00:00 AM EST active Basaglar KwikPen 100 UNIT/ML eCW1 ([facility]) Basaglar KwikPen 100 UNIT/ML Basaglar KwikPen 100 UNIT/ML 12:00:00 AM EST active Basaglar KwikPen 100 UNIT/ML eCW1 ([facility]) BD Pen Needle Mini U/F 31G X 5 MM BD Pen Needle Mini U/F 31G X 5 MM 09/01/2020 12:00:00 AM EST active BD Pen N eedle Mini U/F 31G X 5 MM eCW1 ([facility]) Fluconazole 150 MG Oral Tablet Fluconazole 150 MG 09/01/2020 12:00: 00 AM EST 1.0 {tablet} suspended Fluconazole 150 M G eCW1 ([facility]) Basaglar KwikPen 100 UNIT/ML Basaglar KwikPen 100 UNIT/ML 12:00:00 AM EST active Basaglar KwikPen 100 UNIT/ML eCW1 ([facility]) Fluconazole 150 MG Oral Tablet Fluconazole 150 MG 09/01/2020 12:00: 00 AM EST 1.0 {tablet} suspended Fluconazole 150 M G eCW1 ([facility]) BD Pen Needle Mini U/F 31G X 5 MM BD Pen Needle Mini U/F 31G X 5 MM 09/01/2020 12:00:00 AM EST active BD Pen N eedle Mini U/F 31G X 5 MM eCW1 ([facility]) BD Pen Needle Mini U/F 31G X 5 MM BD Pen Needle Mini U/F 31G X 5 MM 09/01/2020 12:00:00 AM EST active BD Pen N eedle Mini U/F 31G X 5 MM eCW1 ([facility]) Fluconazole 150 MG Oral Tablet Fluconazole 150 MG 09/01/2020 12:00: 00 AM EST 1.0 {tablet} suspended Fluconazole 150 M G eCW1 ([facility]) Basaglar KwikPen 100 UNIT/ML Basaglar KwikPen 100 UNIT/ML 12:00:00 AM EST active Basaglar KwikPen 100 UNIT/ML eCW1 ([facility]) Fluconazole 150 MG Oral Tablet Fluconazole 150 MG 09/01/2020 12:00: 00 AM EST 1.0 {tablet} active Fluconazole 150 MG eCW1 ([facility]) Basaglar KwikPen 100 UNIT/ML Basaglar KwikPen 100 UNIT/ML 12:00:00 AM EST active Basaglar KwikPen 100 UNIT/ML eCW1 ([facility]) BD Pen Needle Mini U/F 31G X 5 MM BD Pen Needle Mini U/F 31G X 5 MM 09/01/2020 12:00:00 AM EST active BD Pen N eedle Mini U/F 31G X 5 MM eCW1 ([facility]) Basaglar KwikPen 100 UNIT/ML Basaglar KwikPen 100 UNIT/ML 12:00:00 AM EST active Basaglar KwikPen 100 UNIT/ML eCW1 ([facility]) Fluconazole 150 MG Oral Tablet Fluconazole 150 MG 09/01/2020 12:00: 00 AM EST 1.0 {tablet} suspended Fluconazole 150 M G eCW1 ([facility]) BD Pen Needle Mini U/F 31G X 5 MM BD Pen Needle Mini U/F 31G X 5 MM 09/01/2020 12:00:00 AM EST active BD Pen N eedle Mini U/F 31G X 5 MM eCW1 ([facility]) Basaglar KwikPen 100 UNIT/ML Basaglar KwikPen 100 UNIT/ML 12:00:00 AM EST active Basaglar KwikPen 100 UNIT/ML eCW1 ([facility]) BD Pen Needle Mini U/F 31G X 5 MM BD Pen Needle Mini U/F 31G X 5 MM 09/01/2020 12:00:00 AM EST active BD Pen N eedle Mini U/F 31G X 5 MM eCW1 ([facility]) Basaglar KwikPen 100 UNIT/ML Basaglar KwikPen 100 UNIT/ML 12:00:00 AM EST active Basaglar KwikPen 100 UNIT/ML eCW1 ([facility]) BD Pen Needle Mini U/F 31G X 5 MM BD Pen Needle Mini U/F 31G X 5 MM 09/01/2020 12:00:00 AM EST active BD Pen N eedle Mini U/F 31G X 5 MM eCW1 ([facility]) BD Pen Needle Mini U/F 31G X 5 MM BD Pen Needle Mini U/F 31G X 5 MM 09/01/2020 12:00:00 AM EST active BD Pen N eedle Mini U/F 31G X 5 MM eCW1 ([facility]) BD Pen Needle Mini U/F 31G X 5 MM BD Pen Needle Mini U/F 31G X 5 MM 09/01/2020 12:00:00 AM EST active BD Pen N eedle Mini U/F 31G X 5 MM eCW1 ([facility]) BD Pen Needle Mini U/F 31G X 5 MM BD Pen Needle Mini U/F 31G X 5 MM 09/01/2020 12:00:00 AM EST active BD Pen N eedle Mini U/F 31G X 5 MM eCW1 ([facility]) Fluconazole 150 MG Oral Tablet Fluconazole 150 MG 09/01/2020 12:00: 00 AM EST 1.0 {tablet} suspended Fluconazole 150 M G eCW1 ([facility]) Fluconazole 150 MG Oral Tablet Fluconazole 150 MG 09/01/2020 12:00: 00 AM EST 1.0 {tablet} suspended Fluconazole 150 M G eCW1 ([facility]) Basaglar KwikPen 100 UNIT/ML Basaglar KwikPen 100 UNIT/ML 12:00:00 AM EST active Basaglar KwikPen 100 UNIT/ML eCW1 ([facility]) Basaglar KwikPen 100 UNIT/ML Basaglar KwikPen 100 UNIT/ML 12:00:00 AM EST active Basaglar KwikPen 100 UNIT/ML eCW1 ([facility]) BD Pen Needle Mini U/F 31G X 5 MM BD Pen Needle Mini U/F 31G X 5 MM 09/01/2020 12:00:00 AM EST active BD Pen N eedle Mini U/F 31G X 5 MM eCW1 ([facility]) Fluconazole 150 MG Oral Tablet Fluconazole 150 MG 09/01/2020 12:00: 00 AM EST 1.0 {tablet} active Fluconazole 150 MG eCW1 ([facility]) BD Pen Needle Mini U/F 31G X 5 MM BD Pen Needle Mini U/F 31G X 5 MM 09/01/2020 12:00:00 AM EST active BD Pen N eedle Mini U/F 31G X 5 MM eCW1 ([facility]) Fluconazole 150 MG Oral Tablet Fluconazole 150 MG 09/01/2020 12:00: 00 AM EST 1.0 {tablet} suspended Fluconazole 150 M G eCW1 ([facility]) BD Pen Needle Mini U/F 31G X 5 MM BD Pen Needle Mini U/F 31G X 5 MM 09/01/2020 12:00:00 AM EST active BD Pen N eedle Mini U/F 31G X 5 MM eCW1 ([facility]) BD Pen Needle Mini U/F 31G X 5 MM BD Pen Needle Mini U/F 31G X 5 MM 09/01/2020 12:00:00 AM EST active BD Pen N eedle Mini U/F 31G X 5 MM eCW1 ([facility]) Fluconazole 150 MG Oral Tablet Fluconazole 150 MG 09/01/2020 12:00: 00 AM EST 1.0 {tablet} suspended Fluconazole 150 M G eCW1 ([facility]) Fluconazole 150 MG Oral Tablet Fluconazole 150 MG 09/01/2020 12:00: 00 AM EST 1.0 {tablet} suspended Fluconazole 150 M G eCW1 ([facility]) Basaglar KwikPen 100 UNIT/ML Basaglar KwikPen 100 UNIT/ML 12:00:00 AM EST active Basaglar KwikPen 100 UNIT/ML eCW1 ([facility]) Fluconazole 150 MG Oral Tablet Fluconazole 150 MG 09/01/2020 12:00: 00 AM EST 1.0 {tablet} active Fluconazole 150 MG eCW1 ([facility]) BD Pen Needle Mini U/F 31G X 5 MM BD Pen Needle Mini U/F 31G X 5 MM 09/01/2020 12:00:00 AM EST active BD Pen N eedle Mini U/F 31G X 5 MM eCW1 ([facility]) Basaglar KwikPen 100 UNIT/ML Basaglar KwikPen 100 UNIT/ML 12:00:00 AM EST active Basaglar KwikPen 100 UNIT/ML eCW1 ([facility]) BD Pen Needle Mini U/F 31G X 5 MM BD Pen Needle Mini U/F 31G X 5 MM 09/01/2020 12:00:00 AM EST active BD Pen N eedle Mini U/F 31G X 5 MM eCW1 ([facility]) BD Pen Needle Mini U/F 31G X 5 MM BD Pen Needle Mini U/F 31G X 5 MM 09/01/2020 12:00:00 AM EST active BD Pen N eedle Mini U/F 31G X 5 MM eCW1 ([facility]) Fluconazole 150 MG Oral Tablet Fluconazole 150 MG 09/01/2020 12:00: 00 AM EST 1.0 {tablet} suspended Fluconazole 150 M G eCW1 ([facility]) BD Pen Needle Mini U/F 31G X 5 MM BD Pen Needle Mini U/F 31G X 5 MM 09/01/2020 12:00:00 AM EST active BD Pen N eedle Mini U/F 31G X 5 MM eCW1 ([facility]) BD Pen Needle Mini U/F 31G X 5 MM BD Pen Needle Mini U/F 31G X 5 MM 09/01/2020 12:00:00 AM EST active BD Pen N eedle Mini U/F 31G X 5 MM eCW1 ([facility]) BD Pen Needle Mini U/F 31G X 5 MM BD Pen Needle Mini U/F 31G X 5 MM 09/01/2020 12:00:00 AM EST active BD Pen N eedle Mini U/F 31G X 5 MM eCW1 ([facility]) Basaglar KwikPen 100 UNIT/ML Basaglar KwikPen 100 UNIT/ML 12:00:00 AM EST active Basaglar KwikPen 100 UNIT/ML eCW1 ([facility]) Fluconazole 150 MG Oral Tablet Fluconazole 150 MG 09/01/2020 12:00: 00 AM EST 1.0 {tablet} suspended Fluconazole 150 M G eCW1 ([facility]) Fluconazole 150 MG Oral Tablet Fluconazole 150 MG 09/01/2020 12:00: 00 AM EST 1.0 {tablet} suspended Fluconazole 150 M G eCW1 ([facility]) Fluconazole 150 MG Oral Tablet Fluconazole 150 MG 09/01/2020 12:00: 00 AM EST 1.0 {tablet} suspended Fluconazole 150 M G eCW1 ([facility]) BD Pen Needle Mini U/F 31G X 5 MM BD Pen Needle Mini U/F 31G X 5 MM 09/01/2020 12:00:00 AM EST active BD Pen N eedle Mini U/F 31G X 5 MM eCW1 ([facility]) BD Pen Needle Mini U/F 31G X 5 MM BD Pen Needle Mini U/F 31G X 5 MM 09/01/2020 12:00:00 AM EST active BD Pen N eedle Mini U/F 31G X 5 MM eCW1 ([facility]) BD Pen Needle Mini U/F 31G X 5 MM BD Pen Needle Mini U/F 31G X 5 MM 09/01/2020 12:00:00 AM EST active BD Pen N eedle Mini U/F 31G X 5 MM eCW1 ([facility]) Fluconazole 150 MG Oral Tablet Fluconazole 150 MG 09/01/2020 12:00: 00 AM EST 1.0 {tablet} suspended Fluconazole 150 M G eCW1 ([facility]) Fluconazole 150 MG Oral Tablet Fluconazole 150 MG 09/01/2020 12:00: 00 AM EST 1.0 {tablet} suspended Fluconazole 150 M G eCW1 ([facility]) Fluconazole 150 MG Oral Tablet Fluconazole 150 MG 09/01/2020 12:00: 00 AM EST 1.0 {tablet} active Fluconazole 150 MG eCW1 ([facility]) Fluconazole 150 MG Oral Tablet Fluconazole 150 MG 09/01/2020 12:00: 00 AM EST 1.0 {tablet} suspended Fluconazole 150 M G eCW1 ([facility]) Basaglar KwikPen 100 UNIT/ML Basaglar KwikPen 100 UNIT/ML 12:00:00 AM EST active Basaglar KwikPen 100 UNIT/ML eCW1 ([facility]) Fluconazole 150 MG Oral Tablet Fluconazole 150 MG 09/01/2020 12:00: 00 AM EST 1.0 {tablet} suspended Fluconazole 150 M G eCW1 ([facility]) Fluconazole 150 MG Oral Tablet Fluconazole 150 MG 09/01/2020 12:00: 00 AM EST 1.0 {tablet} active Fluconazole 150 MG eCW1 ([facility]) Fluconazole 150 MG Oral Tablet Fluconazole 150 MG 09/01/2020 12:00: 00 AM EST 1.0 {tablet} suspended Fluconazole 150 M G eCW1 ([facility]) Fluconazole 150 MG Oral Tablet Fluconazole 150 MG 09/01/2020 12:00: 00 AM EST 1.0 {tablet} active Fluconazole 150 MG eCW1 ([facility]) BD Pen Needle Mini U/F 31G X 5 MM BD Pen Needle Mini U/F 31G X 5 MM 09/01/2020 12:00:00 AM EST active BD Pen N eedle Mini U/F 31G X 5 MM eCW1 ([facility]) BD Pen Needle Mini U/F 31G X 5 MM BD Pen Needle Mini U/F 31G X 5 MM 09/01/2020 12:00:00 AM EST active BD Pen N eedle Mini U/F 31G X 5 MM eCW1 ([facility]) Basaglar KwikPen 100 UNIT/ML Basaglar KwikPen 100 UNIT/ML 12:00:00 AM EST active Basaglar KwikPen 100 UNIT/ML eCW1 ([facility]) BD Pen Needle Mini U/F 31G X 5 MM BD Pen Needle Mini U/F 31G X 5 MM 09/01/2020 12:00:00 AM EST active BD Pen N eedle Mini U/F 31G X 5 MM eCW1 ([facility]) Basaglar KwikPen 100 UNIT/ML Basaglar KwikPen 100 UNIT/ML 12:00:00 AM EST active Basaglar KwikPen 100 UNIT/ML eCW1 ([facility]) Basaglar KwikPen 100 UNIT/ML Basaglar KwikPen 100 UNIT/ML 12:00:00 AM EST active Basaglar KwikPen 100 UNIT/ML eCW1 ([facility]) BD Pen Needle Mini U/F 31G X 5 MM BD Pen Needle Mini U/F 31G X 5 MM 09/01/2020 12:00:00 AM EST active BD Pen N eedle Mini U/F 31G X 5 MM eCW1 ([facility]) Fluconazole 150 MG Oral Tablet Fluconazole 150 MG 09/01/2020 12:00: 00 AM EST 1.0 {tablet} active Fluconazole 150 MG eCW1 ([facility]) Fluconazole 150 MG Oral Tablet Fluconazole 150 MG 09/01/2020 12:00: 00 AM EST 1.0 {tablet} suspended Fluconazole 150 M G eCW1 ([facility]) Fluconazole 150 MG Oral Tablet Fluconazole 150 MG 09/01/2020 12:00: 00 AM EST 1.0 {tablet} suspended Fluconazole 150 M G eCW1 ([facility]) Fluconazole 150 MG Oral Tablet Fluconazole 150 MG 09/01/2020 12:00: 00 AM EST 1.0 {tablet} active Fluconazole 150 MG eCW1 ([facility]) Fluconazole 150 MG Oral Tablet Fluconazole 150 MG 09/01/2020 12:00: 00 AM EST 1.0 {tablet} suspended Fluconazole 150 M G eCW1 ([facility]) Fluconazole 150 MG Oral Tablet Fluconazole 150 MG 09/01/2020 12:00: 00 AM EST 1.0 {tablet} suspended Fluconazole 150 M G eCW1 ([facility]) Basaglar KwikPen 100 UNIT/ML Basaglar KwikPen 100 UNIT/ML 12:00:00 AM EST active Basaglar KwikPen 100 UNIT/ML eCW1 ([facility]) Fluconazole 150 MG Oral Tablet Fluconazole 150 MG 09/01/2020 12:00: 00 AM EST 1.0 {tablet} suspended Fluconazole 150 M G eCW1 ([facility]) Fluconazole 150 MG Oral Tablet Fluconazole 150 MG 09/01/2020 12:00: 00 AM EST 1.0 {tablet} suspended Fluconazole 150 M G eCW1 ([facility]) Fluconazole 150 MG Oral Tablet Fluconazole 150 MG 09/01/2020 12:00: 00 AM EST 1.0 {tablet} active Fluconazole 150 MG eCW1 ([facility]) Fluconazole 150 MG Oral Tablet Fluconazole 150 MG 09/01/2020 12:00: 00 AM EST 1.0 {tablet} suspended Fluconazole 150 M G eCW1 ([facility]) BD Pen Needle Mini U/F 31G X 5 MM BD Pen Needle Mini U/F 31G X 5 MM 09/01/2020 12:00:00 AM EST active BD Pen N eedle Mini U/F 31G X 5 MM eCW1 ([facility]) BD Pen Needle Mini U/F 31G X 5 MM BD Pen Needle Mini U/F 31G X 5 MM 09/01/2020 12:00:00 AM EST active BD Pen N eedle Mini U/F 31G X 5 MM eCW1 ([facility]) Basaglar KwikPen 100 UNIT/ML Basaglar KwikPen 100 UNIT/ML 12:00:00 AM EST active Basaglar KwikPen 100 UNIT/ML eCW1 ([facility]) BD Pen Needle Mini U/F 31G X 5 MM BD Pen Needle Mini U/F 31G X 5 MM 09/01/2020 12:00:00 AM EST active BD Pen N eedle Mini U/F 31G X 5 MM eCW1 ([facility]) BD Pen Needle Mini U/F 31G X 5 MM BD Pen Needle Mini U/F 31G X 5 MM 09/01/2020 12:00:00 AM EST active BD Pen N eedle Mini U/F 31G X 5 MM eCW1 ([facility]) BD Pen Needle Mini U/F 31G X 5 MM BD Pen Needle Mini U/F 31G X 5 MM 09/01/2020 12:00:00 AM EST active BD Pen N eedle Mini U/F 31G X 5 MM eCW1 ([facility]) Basaglar KwikPen 100 UNIT/ML Basaglar KwikPen 100 UNIT/ML 12:00:00 AM EST active Basaglar KwikPen 100 UNIT/ML eCW1 ([facility]) Basaglar KwikPen 100 UNIT/ML Basaglar KwikPen 100 UNIT/ML 12:00:00 AM EST active Basaglar KwikPen 100 UNIT/ML eCW1 ([facility]) BD Pen Needle Mini U/F 31G X 5 MM BD Pen Needle Mini U/F 31G X 5 MM 09/01/2020 12:00:00 AM EST active BD Pen N eedle Mini U/F 31G X 5 MM eCW1 ([facility]) Basaglar KwikPen 100 UNIT/ML Basaglar KwikPen 100 UNIT/ML 12:00:00 AM EST active Basaglar KwikPen 100 UNIT/ML eCW1 ([facility]) Acetaminophen 325 MG / Hydrocodone Ju trate 7.5 MG Oral Tablet Hydrocodone- Acetaminophen 7.5-325 MG Hydrocodone-Acetaminophen 7.5-325 MG 08/06/2020 12:00:00 AM EST 1.0 {tablet_as_needed} active Hydrocodone- Acetaminophen 7.5-325 MG eCW1 ([facility]) Acetaminophen 325 MG / Hydrocodone Ju trate 7.5 MG Oral Tablet Hydrocodone- Acetaminophen 7.5-325 MG Hydrocodone-Acetaminophen 7.5-325 MG 08/06/2020 12:00:00 AM EST 1.0 {tablet_as_needed} active Hydrocodone- Acetaminophen 7.5-325 MG eCW1 ([facility]) Acetaminophen 325 MG / Hydrocodone Ju trate 7.5 MG Oral Tablet Hydrocodone- Acetaminophen 7.5-325 MG Hydrocodone-Acetaminophen 7.5-325 MG 08/06/2020 12:00:00 AM EST 1.0 {tablet_as_needed} active Hydrocodone- Acetaminophen 7.5-325 MG eCW1 ([facility]) pioglitazone 15 MG Oral Tablet Pioglitazone HCl 15 MG Piogli tazone HCl 15 MG 07/18/2020 12:00:00 AM EST 1.0 {tablet} active Pioglitazone HCl 15 MG eCW1 ([facility]) pioglitazone 15 MG Oral Tablet Pioglitazone HCl 15 MG Piogli tazone HCl 15 MG 07/18/2020 12:00:00 AM EST 1.0 {tablet} active Pioglitazone HCl 15 MG eCW1 ([facility]) pioglitazone 15 MG Oral Tablet Pioglitazone HCl 15 MG Piogli tazone HCl 15 MG 07/18/2020 12:00:00 AM EST 1.0 {tablet} active Pioglitazone HCl 15 MG eCW1 ([facility]) pioglitazone 15 MG Oral Tablet Pioglitazone HCl 15 MG Piogli tazone HCl 15 MG 07/18/2020 12:00:00 AM EST 1.0 {tablet} active Pioglitazone HCl 15 MG eCW1 ([facility]) pioglitazone 15 MG Oral Tablet Pioglitazone HCl 15 MG Piogli tazone HCl 15 MG 07/18/2020 12:00:00 AM EST 1.0 {tablet} active Pioglitazone HCl 15 MG eCW1 ([facility]) Fluconazole 150 MG Oral Tablet Fluconazole 150 MG 07/18/2020 12:00: 00 AM EST 1.0 {tablet} active Fluconazole 150 MG eCW1 ([facility]) pioglitazone 15 MG Oral Tablet Pioglitazone HCl 15 MG Piogli tazone HCl 15 MG 07/18/2020 12:00:00 AM EST 1.0 {tablet} active Pioglitazone HCl 15 MG eCW1 ([facility]) pioglitazone 15 MG Oral Tablet Pioglitazone HCl 15 MG Piogli tazone HCl 15 MG 07/18/2020 12:00:00 AM EST 1.0 {tablet} active Pioglitazone HCl 15 MG eCW1 ([facility]) pioglitazone 15 MG Oral Tablet Pioglitazone HCl 15 MG Piogli tazone HCl 15 MG 07/18/2020 12:00:00 AM EST 1.0 {tablet} active Pioglitazone HCl 15 MG eCW1 ([facility]) Fluconazole 150 MG Oral Tablet Fluconazole 150 MG 07/18/2020 12:00: 00 AM EST 1.0 {tablet} active Fluconazole 150 MG eCW1 ([facility]) pioglitazone 15 MG Oral Tablet Pioglitazone HCl 15 MG Piogli tazone HCl 15 MG 07/18/2020 12:00:00 AM EST 1.0 {tablet} active Pioglitazone HCl 15 MG eCW1 ([facility]) pioglitazone 15 MG Oral Tablet Pioglitazone HCl 15 MG Piogli tazone HCl 15 MG 07/18/2020 12:00:00 AM EST 1.0 {tablet} active Pioglitazone HCl 15 MG eCW1 ([facility]) pioglitazone 15 MG Oral Tablet Pioglitazone HCl 15 MG Piogli tazone HCl 15 MG 07/18/2020 12:00:00 AM EST 1.0 {tablet} active Pioglitazone HCl 15 MG eCW1 ([facility]) pioglitazone 15 MG Oral Tablet Pioglitazone HCl 15 MG Piogli tazone HCl 15 MG 07/18/2020 12:00:00 AM EST 1.0 {tablet} active Pioglitazone HCl 15 MG eCW1 ([facility]) pioglitazone 15 MG Oral Tablet Pioglitazone HCl 15 MG Piogli tazone HCl 15 MG 07/18/2020 12:00:00 AM EST 1.0 {tablet} active Pioglitazone HCl 15 MG eCW1 ([facility]) pioglitazone 15 MG Oral Tablet Pioglitazone HCl 15 MG Piogli tazone HCl 15 MG 07/18/2020 12:00:00 AM EST 1.0 {tablet} active Pioglitazone HCl 15 MG eCW1 ([facility]) pioglitazone 15 MG Oral Tablet Pioglitazone HCl 15 MG Piogli tazone HCl 15 MG 07/18/2020 12:00:00 AM EST 1.0 {tablet} active Pioglitazone HCl 15 MG eCW1 ([facility]) pioglitazone 15 MG Oral Tablet Pioglitazone HCl 15 MG Piogli tazone HCl 15 MG 07/18/2020 12:00:00 AM EST 1.0 {tablet} active Pioglitazone HCl 15 MG eCW1 ([facility]) pioglitazone 15 MG Oral Tablet Pioglitazone HCl 15 MG Piogli tazone HCl 15 MG 07/18/2020 12:00:00 AM EST 1.0 {tablet} active Pioglitazone HCl 15 MG eCW1 ([facility]) Fluconazole 150 MG Oral Tablet Fluconazole 150 MG 07/18/2020 12:00: 00 AM EST 1.0 {tablet} active Fluconazole 150 MG eCW1 ([facility]) Fluconazole 150 MG Oral Tablet Fluconazole 150 MG 07/18/2020 12:00: 00 AM EST 1.0 {tablet} active Fluconazole 150 MG eCW1 ([facility]) pioglitazone 15 MG Oral Tablet Pioglitazone HCl 15 MG Piogli tazone HCl 15 MG 07/18/2020 12:00:00 AM EST 1.0 {tablet} active Pioglitazone HCl 15 MG eCW1 ([facility]) pioglitazone 15 MG Oral Tablet Pioglitazone HCl 15 MG Piogli tazone HCl 15 MG 07/18/2020 12:00:00 AM EST 1.0 {tablet} active Pioglitazone HCl 15 MG eCW1 ([facility]) pioglitazone 15 MG Oral Tablet Pioglitazone HCl 15 MG Piogli tazone HCl 15 MG 07/18/2020 12:00:00 AM EST 1.0 {tablet} active Pioglitazone HCl 15 MG eCW1 ([facility]) Acetaminophen 325 MG / Hydrocodone Ju trate 7.5 MG Oral Tablet Hydrocodone- Acetaminophen 7.5-325 MG Hydrocodone-Acetaminophen 7.5-325 MG 07/07/2020 12:00:00 AM EST 1.0 {tablet_as_needed} active Hydrocodone- Acetaminophen 7.5-325 MG eCW1 ([facility]) Acetaminophen 325 MG / Hydrocodone Ju trate 7.5 MG Oral Tablet Hydrocodone- Acetaminophen 7.5-325 MG Hydrocodone-Acetaminophen 7.5-325 MG 07/07/2020 12:00:00 AM EST 1.0 {tablet_as_needed} active Hydrocodone- Acetaminophen 7.5-325 MG eCW1 ([facility]) Acetaminophen 325 MG / Hydrocodone Ju trate 7.5 MG Oral Tablet Hydrocodone- Acetaminophen 7.5-325 MG Hydrocodone-Acetaminophen 7.5-325 MG 07/07/2020 12:00:00 AM EST 1.0 {tablet_as_needed} active Hydrocodone- Acetaminophen 7.5-325 MG eCW1 ([facility]) 24 HR Metformin hydrochloride 500 MG Ext ended Release Oral Tablet MetFORMIN HCl ER 500 MG MetFORMIN HCl ER 500 MG 06/26/2020 12:00:00 AM EST active MetFORMIN HCl ER 500 MG eCW1 ([facility]) 24 HR Metformin hydrochloride 500 MG Ext ended Release Oral Tablet MetFORMIN HCl ER 500 MG MetFORMIN HCl ER 500 MG 06/26/2020 12:00:00 AM EST active MetFORMIN HCl ER 500 MG eCW1 ([facility]) 24 HR Metformin hydrochloride 500 MG Ext ended Release Oral Tablet MetFORMIN HCl ER 500 MG MetFORMIN HCl ER 500 MG 06/26/2020 12:00:00 AM EST active MetFORMIN HCl ER 500 MG eCW1 ([facility]) 24 HR Metformin hydrochloride 500 MG Ext ended Release Oral Tablet MetFORMIN HCl ER 500 MG MetFORMIN HCl ER 500 MG 06/26/2020 12:00:00 AM EST active MetFORMIN HCl ER 500 MG eCW1 ([facility]) Insurance Providers Payer name Policy type / Coverage type Policy ID Covered republican ID Covered republican's relationship to nicolas Policy Nicolas Plan Information FFS Self Pay [id number] Self [id number] MVP [facility] [id number] SP [id number] MV MEDICAID HMO -O/P [id number] 18 [id number] [place] MEDICAID HMO -O/[id number] 1 18 1 [facility] [id number] SP [id number] [place] [id number] SP [id number] [facility] [place] SP UNAVAILABLE S U NAVAILABLE SELF PAY SP UNAVAILABLE S UNAVAILA BLE P UNAVAILABLE UNAVAILA BLE [employer] [id number] SP [id number] CIGNA/MVP/CONN GEN/PREFE P [id number] S [id number] MEDICAID P [id number] S [id number] [employer] INSURANCE CO [id number] SP [id number] SELF PAY UNAVAILABLE UNAVAILA BLE MEDICAID [id number] SP [id number] Self Pay P UNAVAILABLE S UNAVAILA BLE [facility] [id number] SP [id number] [facility] [id number] SP [id number] SELF PAY ONLY [id number] SP [id number] [employer] [id number] SP [id number] Problems, Conditions, and Diagnoses Code Display Name Description Problem Type Effective Dates Data Source(s) E872 Acidosis Acidosis Diagnosis 10/19/2020 06:44:00 PM ED T [facility] E873 Alkalosis Alkalosis Diagnosis 10/19/2020 06:44:00 PM ED T [facility] R1115 Cyclical vomiting syndrome unrelated to migraine Cyclical vomiting syndrome unrelated to migraine Diagnosis 10/19/2020 06:44:00 PM EDT [facility] [id number] Nicotine dependence, cigarettes, uncompl icated Nicotine dependence, cigarettes, uncomplicated Diagnosis 10/19/2020 06:44:00 PM EDT [facility] E119 Type 2 diabetes mellitus without complic ations Type 2 diabetes mellitus without complications Diagnosis 10/19/2020 06:44:00 PM EDT [facility] R079 Chest pain, unspecified Chest pain, unspecified Diagno sis 10/19/2020 06:44:00 PM EDT [facility] R112 Nausea with vomiting, unspecified Nausea with vo miting, unspecified Diagnosis 10/19/2020 06:44:00 PM EDT [facility] [id number] Acute cystitis with hematuria Acute cystitis with lindsey turia Diagnosis 10/19/2020 06:44:00 PM EDT [facility] R1013 Epigastric pain Epigastric pain Diagnosis 10/19/2020 06:4 4:00 PM EDT [facility] F41.1 [id number] SUZANNA (generalized anxiety disorder) Proble 02/06/2021 12:00:00 AM EDT eCW1 ([facility]) F32.9 [id number] Depression, unspecified depression type P roblem 02/06/2021 12:00:00 AM EDT eCW1 ([facility]) I10 [id number] Essential hypertension Problem 10/25/2020 12 :00:00 AM EDT eCW1 ([facility]) M54.41 [id number] Lumbago with sciatica, right side Problem 10/25/2020 12:00:00 AM EDT eCW1 ([facility]) 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 Proble m 09/24/2020 12:00:00 AM EDT eCW1 ([facility]) E11.9 [id number] Type 2 diabetes mellitus without complica tions Problem 09/24/2020 12:00:00 AM EDT eCW1 ([facility]) G43.009 [id number] Migraine without aur a and without status migrainosus, not intractable Problem 07/08/2020 12:00:00 AM EST eCW1 (Counts include 234 beds at the [facility]) F41.9 [id number] Anxiety Problem 06/26/2020 12:00:00 AM ES T eCW1 ([facility]) G89.29 [id number] Other chronic pain Problem 06/26/2020 12:00: 00 AM EST eCW1 ([facility]) E11.9 [id number] Type 2 diabetes gayatri itus without complication, without long-term current use of insulin Problem 06/26/2020 12:00:00 AM EST eCW1 ([facility]) 520.6 Impacted tooth Impacted tooth 05/13/2020 08:53: 08 AM EST [facility] Surgeries/Procedures No Information Results ID Date Data Source LIPID PANEL (CARDIAC RISK) 10/24/2020 12:00:00 AM EDT eCW1 ( [facility]) Name Value Range Interpretation Code Description Data Melonie rce(s) Supporting Document(s) Triglyceride [Mass/volume] in Serum or Plasma by calculation 85 <150 TRIGLYCERIDES LEVEL eCW1 ([facility]) Cholesterol in LDL [Mass/volume] in Serum or Plasma by calculation 95 <100 LDL CHOLESTEROL eCW1 ([facility]) 112 NON-HDL-C eCW1 ([facility]) Cholesterol [Moles/volume] in Serum or Plasma 156 <200 CHOLESTEROL LEVEL eCW1 ([facility]) Cholesterol in HDL [Moles/volume] in Serum or Plasma 44 >40 HDL CHOLESTEROL eCW1 ([facility]) 3.545 <5 CHOLESTEROL RISK RATIO eCW1 ([facility]) ID Date Data Source [id number] 10/24/2020 12:00:00 AM EDT eCW1 (Counts include 234 beds at the [facility]) Name Value Range Interpretation Code Description Data Melonie rce(s) Supporting Document(s) Hemoglobin A1c/Hemoglobin.total in Blood 8.8 HEMOGLOBIN A1c eCW1 ([facility]) ID Date Data Source [id number] 10/21/2020 03:02:00 AM EDT [facility] [address] [place] [address] RESPIRATORY CARE REPORT ==== ---------NAME------- NUMBER SEX AGE ADMIT DISC. XRAY# F/C JOSEMANUEL HUFF N [id number] F 40 10/19/20 10/19/20 [id number] XBM E/R DATE OF : 1980 M/R# [id number] PH#: [phone] TR-02 LOCATION: EMERGENCY DEPT EKG [id number] COMP LETE:10/20/20 02:05 AJP [id number] PHYSICIAN: TOSHA ARMENTA Name Value Range Interpretation Code Description Data Melonie rce(s) Supporting Document(s) ID Date Data Source [id number] 10/20/2020 09:13:00 [place] [address] PHONE: [phone] FAX: [phone] Name .................. : YUMI Keane Acct Number.................. : [id number] ROOM. ................. : TR-02 Number ................... : [id number] Stay type ............. : E/R Discharge Date......... ... : Admit Date ......... : 10/19/20 Admit Phys .................... : TOSHA Tony Date of ....... : 1980 Family Phys ................... : RUCHI TENORIO Phone .................. : [phone] Age ................................ : 40 Film# .................. .:[id number] Sex ................................. : F Unsigned transcriptions are preliminary reports and do not represent a medical or legal document CHEST PORTABLE [id number] COMPLETE:10/19/20 19:58 DLA 8501 Reason(s): Chest Pain PORTABLE CHEST X-RAY: CLINICAL HISTORY: Chest pain. COMPARISON: None. FINDINGS: The cardiac and mediastinal silhouettes appear normal and the lungs are clear. The bones and soft tissues are normal. The upper abdomen is unremarkable. IMPRESSION: No acute disease identifiable. Electronically Reviewed and Signed By Ivonne Schneider MD , 10/20/20 09:13, KGRamírez Transcribe Initials: DZ , Transcribe Date: 10/19/20 21:19, Dictation Date: Copy for: [facility] via fax Copy for: EMERGENCY DEPT via modem Copy for: 710 MED REC DISCHARGED Page 1 of 1 Name Value Range Interpretation Code Description Data Melonie rce(s) Supporting Document(s) ID Date Data Source [id number] 10/19/2020 06:44:00 PM EDT [facility] 1 OrderSheet [facility] Emergency Department [address] [place] [address] Phone #: [phone] ouk- [phone] 10/19/2020 18:26 Patient: REFUGIO EASON Sex: F : 1980 Age: 40yWEIGHT:68.0 kg (S) HEIGHT:61 inches (S) BMI:28.3ALLERGIES: NKDACHIEF COMPLAINT: abdominal pain, flank pain, nausea, vomiting, chest painDIAGNOSIS: Urinary tract infectious disease, VomitingLAB ORDERSOrder Description Priority Entered Acknowledged InitialedCBC w Diff STAT 18:45 10/19/2020 18:48 Tushar Mari R.N.;CMP STAT 18:45 10/19/2020 18:48 Tushar Mari R.N.;Lipase STAT 18:45 10/19/2020 18:48 Tushar Mari R.N.;Urinalysis (Clean STAT 18:45 10/19/2020 Ack'd: 18:49 21:17 Kamaljit,Catch) Yesika Caruso R.N.; R.N.Troponin-T STAT 18:47 10/19/2020 18:48 Tushar Mari R.N.;Urine Drug Screen STAT 18:56 10/19/2020 Ack'd: 19:21 21:17 Tushar Mari Jennifer Amber R.N. PA; R.N.ETOH STAT 18:56 10/19/2020 19:09 Tushar Alonso;ABG STAT 20:11 10/19/2020 20:27 Tushar Mari R.N.;DIAGNOSTIC STUDY ORDERSOrder Description Priority Entered Acknowledged InitialedCT ABD PEL W/O STAT 18:46 10/19/2020 Ack'd: 18:49 18:56 Ct,Oral W/O IV Yesika Caruso R.N. 2 OrderSheet [facility] Emergency Department [address] [place] [address] Phone #: ext- [phone] 10/19/2020 18:26 Patient: REFUGIO EASON Sex: F : 1980 Age: 40yContrast PA; R.N.(Oxygen?(No))(IV?(Yes)) NOTES: Right Flank and back pain Reason for Study: Abdominal PainChest Portable 1 STAT 18:47 10/19/2020 Ack'd: 18:49 19:18 Armando,Yesika Madison R.N.(Oxygen?(No)) PA; R.N. Reason for Study: Chest PainMEDICATION/IV/DRIP/FLUID ORDERSOrder Description Priority Entered Acknowledged InitialedNS IV : Bolus 1000 18:45 10/19/2020 18:56 Ct,mL, then 150 mL/hr Tushar HerreraNCassie GONCALVES;Zofran IVP 8 mg 18:45 10/19/2020 18:52 Tushar FofanaNCassie GONCALVES;Toradol IVP 30 mg 18:45 10/19/2020 18:53 Tushar FofanaNCassie GONCALVES;Ofirmev IV 1000 mg 18:45 10/19/2020 19:20 Armando,(NOW x1, Infuse Tushar Queen R.NCassieover 15 minutes) PA;Ativan IVP 2 mg 18:57 10/19/2020 19:17 Armando(HIGH ALERT Tushar Queen R.NCassieMEDICATION) PA;Morphine IVP 4 mg 20:11 10/19/2020 Cancelled: Physician Order 20:15 Tushar(HIGH ALERT Tushar Armenta PAMEDICATION) PA;fentaNYL IVP 50 20:15 10/19/2020 21:04 Melaragno,mcg (HIGH ALERT Tushar Yan R.N.MEDICATION) PA;Rocephin 21:31 10/19/2020 21:46 Kamaljit,(1gm/50mL) IVPB Tushar Silva.NCassie1000 mg with PA;Dextrose 50 mlspike bag (D5W)Promethazine IV 25 21:57 10/19/2020 22:15 Bisha,mg (NOW x1, HIGH Tushar Boss PA;MEDICATION, 3 OrderSheet [facility] Emergency Department [address] [place] [address] Phone #: ext- [phone] 10/19/2020 18:26 Patient: REFUGIO EASON Sex: F : 1980 Age: 40yNOW)GENERAL ORDERSOrder Description Priority Entered Acknowledged InitialedNPO 18:45 10/19/2020 18:48 Tushar Mari R.N.;Saline Lock 18:45 10/19/2020 18:48 Tushar Mari R.N.;EKG 18:47 10/19/2020 Ack'd: 19:09 19:16 Tushar Roberts Gregory Jennifer R.N. PA;[Electronically signed by Tushar Armenta (22:11 10/19/2020)][Electronically signed by Yesika Mari R.N. (22:19 10/19/2020)][Electronically locked by Yesika Mari R.N. (22:19 10/19/2020)] Name Value Range Interpretation Code Description Data Melonie rce(s) Supporting Document(s) ID Date Data Source [id number] 10/19/2020 06:44:00 PM EDT [facility] 1 Medication Reconciliation Report [facility] Emergency Department [address] [place] [address] Phone #: ext- [phone] 10/19/2020 18:26 Patient: REFUGIO EASON Sex: F : 1980 Age: 40yWeight: 68.0 kgHeight/Length: 61 in.BMI: 28.3ALLERGIES: NKDAThe patient's Home Medications are listed below:CONTINUE TAKING THE FOLLOWING MEDICATIONS: ALPRAZolam Oral (1 mg) 1/2 tablet, prn Basaglar KwikPen Subcutaneous 28 units, daily HYDROcodone-Acetaminophen Oral (10-300 mg) 1 tablet, q6h, prn Imitrex Oral (100 mg) 1 tablet, prnThe source(s) of the original Home Medication information:patientpatient's family memberThe following Medications were given to the patient in the Emergency Department:Zofran [IVP] IVP 8 mg, administered: 18:52 10/19/2020Toradol [IVP] IVP 30 mg, administered: 18:53 10/19/2020NS [IV] IV Fluids bolus 1000 mL wide open, administered: 18:56 10/19/2020tivan [IVP] IVP 2 mg diluted in NS 10 mL, administered: 19:17 10/19/2020Ofirmev IVPB bolus 0, then 1000 mg, administered: 19:19 10/19/2020Fentanyl [IVP] IVP 50 mcg, administered: 21:03 10/19/2020OCEPHIN (1GM/50ML) [IVPB] IVPB bolus 0, then 1 gm 100 mL/hr, administered: 21:36 10/19/2020 2 Medication Reconciliation Report [facility] Emergency Department [address] [place] [address] Phone #: ext- [phone] 10/19/2020 18:26 - Patient: REFUGIO EASON Sex: F : 1980 Age: 40yPROMETHAZINE [IVP] IVP 25 mg, administered: 22:15 10/19/2020The following Medications were prescribed to the patient:ondansetron 8 mg disintegrating tablet Take 1 tablet three times a day for 10 days -- Dispense 30tablet. Refills: 0. Substitution permitted.[facility] - [address] [place] [address] ; [place] [address]. .cefdinir 300 mg capsule Take 1 capsule twice a day for 7 days -- Dispense 14 capsule. Refills: 0.Substitution permitted.[facility] - [address] [place] [address]. .fluconazole 150 mg tablet Take 1 tablet single dose as needed for 1 days -- May repeat in 1 week if s/spersist. Dispense 2 tablet. R efills: 0. Substitution permitted.[place] [address] [address] [place] [address]. . -- IVANNA Bush Name Value Range Interpretation Code Description Data Melonie rce(s) Supporting Document(s) ID Date Data Source [id number] 10/19/2020 06:44:00 PM EDT [facility] 1 Medication Administration Record [facility] Emergency Department [address] [place] [address] Phone #: ext- [phone] 10/19/2020 18:26 Patient: REFUGIO EASON Sex: F : 1980 Age: 40yWeight: 68.0 kgHeight/Length: 61 inBMI: 28.3ALLERGIES: NKDA Date/Time Medication Administered Medication OrderedStart NS [IV] NS IV : Bolus 1000 mL, then 01088:56 10/19/2020 Dose: IV Fluids mL/Jaclyn Emerson RSinai Bolus: 1000 mL wide open---- Dispensed: 1000 mL bagStop Sit e: #1 left wrist20:14 10/19/2020Farrah Sanchez R.N.Given ZOFRAN [IVP] (ONDANSETRON HCL) Zofran IVP 8 mg18:52 10/19/2020 Dose: 8 mg IVPJaclyn Fofana R.NCassie Site: #1 left wristGiven TORADOL [IVP] (KETOROLAC Toradol IVP 30 mg18:53 10/19/2020 TROMETHAMINE)Jaclyn Fofana R.N. Dose: 30 mg IVP Site: #1 left wristStart Ofirmev * Ofirmev IV 1000 mg (NOW x1,19:19 10/19/2020 Dose: 1000 mg * IVPB Infuse over 15 minutes)Bernice Roberts R.N.----Stop19:35 10/19/2020Yesika Mari R.N.Given ATIVAN [IVP] (LORAZEPAM) Ativan IVP 2 mg (HIGH ALERT19:17 10/19/2020 Dose: 2 mg IVP MEDICATION)Bernice Roberts R.N. In: NS 10 mL Site: #1 left wristGiven FENTANYL [IVP] fentaNYL IVP 50 mcg (HIGH21:03 10/19/2020 Dose: 50 mcg IVP ALERT MEDICATION)Farrah Sanchez R.N. Site: #1 left wristStart ROCEPHIN (1GM/50ML) [IVPB] Rocephin (1gm/50mL) IVPB 027234:36 10/19/2020 (CEFTRIAXONE SODIUM) mg with Dextrose 50 ml spike Yesika Esqueda R.N. Dose: 1 gm IVPB (D5W)---- Rate: 100 mL/hrStop Dispensed: 50 mL bag22:06 10/19/2020 Site: #1 left wristYesika Mari R.N.Given PROMETHAZINE [IVP] Promethazine IV 25 mg (NOW x1,22:15 10/19/2020 Dose: 25 mg IVP HIGH ALERT MEDICATION, NOW)Paul Alonso, Site: #1 Name Value Range Interpretation Code Description Data Melonie rce(s) Supporting Document(s) ID Date Data Source [id number] 10/19/2020 06:44:00 PM EDT [facility] 1 General Instructions [facility] Emergency Department [address] [place] [address] Phone #: ext- [phone] 10/19/2020 18:26 Patient: REFUGIO EASON Sex: F : 1980 Age: 40yIntractable vomiting with nausea.Acute urinary tract infection with cystitis and hematuria.INSTRUCTIONS(Stop smoking marijuana as this may be causing your vomiting!).Warnings: Further evaluation is necessary. It is very important to follow up with a healthcare provider.GENERAL WARNINGS: Return or contact your physician immediately if your condition worsens orchanges unexpectedly, if not improving as expected, or if other problems arise. SPECIFICALLY, return ifyou develop blood in vomitus, blood in diarrhea, fainting, lightheadedness or vaginal bleeding; or if there isno improvement in the pain in the abdomen, vomiting or inability to keep fluids down.Your Current Medications: Your current home medications have been reviewed.CONTINUE TAKING THE FOLLOWING MEDICATIONS:ALPRAZolam Oral : Tablet 1 mg, 1/2 tablet, prn.Basaglar KwikPen Subcutaneous : 28 units daily.HYDROcodone-Acetaminophen Oral : Tablet 10-300 mg, 1 tablet q6h, prn.Imitrex Oral : Tablet 100 mg, 1 tablet, prn.Prescription Medications:ondansetron 8 mg disintegrating tablet Take 1 tablet three times a day for 10 days -- Dispense 30tablet. Refills: 0. Substitution permitted.Pharmacy - [facility] [address] [facility] ; [place] [address]. .cefdinir 300 mg capsule Take 1 capsule twice a day for 7 days -- Dispense 14 capsule. Refills: 0.Substitution permitted.[facility] [address] [place] [address]. .fluconazole 150 mg tablet Take 1 tablet single dose as needed for 1 days -- May repeat in 1 week if s/spersist. Dispense 2 tablet. Refills: 0. [facility] st[facility] permitted[facility] [address] [place] [address]. .Follow-up:Follow up with your doctor Tuesday. Reason for referral: evaluation, treatment and refer to Urology, Pain 2 General Instructions [facility] Emergency Department [address] [place] [address] Phone #: ext- [phone] 10/19/2020 18:26 Patient: REFUGIO EASON Sex: F : 1980 Age: 40ymanagement and MRI for Chronic back pain is symptoms worsen.. Summary of care provided to patient.Understanding of the discharge instructions verbalized by patient. ADDITIONAL INFORMATIONVomiting (Adult)Vomiting is a common symptom that may be due to different causes. These include gastroenteritis("stomach flu"), food poisoning and gastritis. There are other more serious causes of vomiting whichmay be hard to diagnose early in the illness. Therefore, it is important to watch for the warning signslisted below.The main danger from repeated vomiting is dehydration. This is due to excess loss of water andminerals from the body. When this occurs, your body fluids must be replaced.Home care If symptoms are severe, rest at home for the next 24 hours. Because your symptoms may be from an infection, wash your hands often and well. If soap and water are not available, use alcohol-based trackmobile operator to keep from spreading the infection to others. Wash your hands for at least 20 seconds. Humming the happy birthday song twice while you wash is an easy way to make sure you've washed for 20 seconds. Wash your hands after using the toilet, before and after preparing food, before eating food, after changing a diaper, cleaning a wound, caring for a sick person, and blowing your nose, coughing, or sneezing. You should also wash your hands after caring for someone who is sick, touching pet food, or treats, and touching an animal, or animal waste. You may use acetaminophen or NSAID medicines like ibuprofen or naproxen to control fever, unless another medicine was prescribed. If you have chronic liver or kidney disease or ever had a stomach ulcer or gastrointestinal bleeding, talk with your doctor before using these medicines. Aspirin should never be used in anyone under 18 years of age who is ill with a fever. It may cause severe liver damage. Don't use NSAID medicines if you are already taking one for another condition (like arthritis) or are on aspirin (such as for heart disease, or after a stroke) Don't use tobacco and or drink alcohol, which may worsen your symptoms. If medicines for vomiting were prescribed, take as directed. Once vomiting stops, then follow these guidelines: 3 General Instructions [facility] Emergency Department [address] [place] [address] Phone #: ext- [phone] 10/19/2020 18:26 Patient: REFUGIO EASON Sex: F : 1980 Age: 40yDuring the first 12 to 24 hours follow the diet below: Fruit juices. Apple, grape juice, clear fruit drinks, and electrolyte replacement drinks. Beverages. Soft drinks without caffeine; mineral water (plain or flavored), decaffeinated tea and coffee. Soups. Clear broth and bouillon Desserts. Plain gelatin, ice pops, and fruit juice bars. As you feel better, you may add 6 to 8 ounces of yogurt per day.During the next 24 hours you may add the following to the above: Hot cereal, plain toast, bread, rolls, crackers Plain noodles, rice, mashed potatoes, chicken noodle or rice soup Unsweetened canned fruit such as applesauce, bananas (avoid pineapple and citrus) Limit caffeine and chocolate. No spices or seasonings except salt.During the next 24 hours:Gradually resume a normal diet, as you feel better and your symptoms lessen.Follow-up careFollow up with your healthcare provider, or as advised.When to seek medical adviceCall your healthcare provider right away if any of these occur: Constant right-sided lower belly pain or increasing general belly pain Continued vomiting (unable to keep liquids down) for 24 hours Vomiting blood or coffee grounds Swollen belly Frequent diarrhea (more than 5 times a day); blood (red or black color) or mucus in diarrhea Reduced urine output or extreme thirst Weakness, dizziness or fainting Unusually drowsy or confused 4 General Instructions [facility] Emergency Department [address] [place] [address] Phone #: ext- [phone] 10/19/2020 18:26 Patient: REFUGIO EASON Sex: F : 1980 Age: 40y Fever of 100.4F (38C) oral or higher, or as directed Yellow color of the eyes or skin [employer] [address] [place] [address], [place] [address]. All rights reserved. This information is not intended as asubstitute for professional medical care. Always follow your healthcare professional's instructions.Bladder Infection, Female (Adult)Urine normally doesn't have any germs (bacteria) in it. But bacteria can get into the urinary tract fromthe skin around the rectum. Or they can travel in the blood from other parts of the body. Once theyare in your urinary tract, they can cause infection in these areas: The urethra (urethritis) The bladder (cystitis) The kidneys (pyelonephritis)The most common place for an infection is in the bladder. This is called a bladder infection. This isone of the most common infections in women. Most bladder infections are easily treated. They arenot serious unless the infection spreads to the kidney.The terms bladder infection, UTI, and cystitis are often used to describe the same thing. But they arenot always the same. Cystitis is an inflammation of the bladder. The most common cause of cystitis isan infection. 5 General Instructions [facility] Emergency Department [address] [place] [address] Phone #: ext- [phone] 10/19/2020 18:26 Patient: REFUGIO EASON Sex: F : 1980 Age: 40ySymptomsThe infection causes inflammation in the urethra and bladder. This causes many of the symptoms.The most common symptoms of a bladder infection are: Pain or burning when urinating Having to urinate more often than normal Urgent need to urinate Only a small amount of urine comes out Blood in urine Belly (abdominal) discomfort. This is often in the lower belly above the pubic bone. Cloudy urine Strong- or bad-smelling urine Unable to urinate (urinary retention) Unable to hold urine in (urinary incontinence) Fever Loss of appetite Confusion (in older adults)CausesBladder infections are not contagious. You can't get one from someone else, from a toilet seat, orfrom sharing a bath.The most common cause of bladder infections is bacteria from the bowels. The bacteria get onto theskin around the opening of the urethra. From there, they can get into the urine. Then they travel up tothe bladder, causing inflammation and infection. This often happens because of: Wiping incorrectly after urinating. Always wipe from front to back. Bowel incontinence Procedures such as having a catheter put in Older age 8 General Instructions [facility] Emergency Department [address] [place], [place] [address] Phone #: ext- [phone] 10/19/2020 18:26 Patient: REFUGIO EASON Sex: F : 1980 Age: 40y Not emptying your bladder. This can give bacteria a chance to grow in your urine. Fluid loss (dehydration) Constipation Having sex Using a diaphragm for controlTreatmentBladder infections are diagnosed by a urine test and urine culture. They are treated with antibiotics.They often clear up quickly without problems. Treatment helps prevent a more serious kidneyinfection.MedicinesMedicines can help in the treatment of a bladder infection: Take antibiotics until they are used up, even if you feel better. It's important to finish them to make sure the infection has cleared. You can use acetaminophen or ibuprofen for pain, fever, or discomfort, unless another medicine was prescribed. If you have long-term (chronic) liver or k idney disease, talk with your healthcare provider before using these medicines. Also talk with your provider if you've ever had a stomach ulcer or GI (gastrointestinal) bleeding, or are taking blood-thinner medicines. If you are given phenazopydridine to reduce burning with urination, it will make your urine a bright orange color. This can stain clothing.Care and preventionThese self-care steps can help prevent future infections: Drink plenty of fluids. This helps to prevent dehydration and flush out your bladder. Do this unless you must restrict fluids for other health reasons, or your healthcare provider told you not to. Clean yourself correctly after going to the bathroom. Wipe from front to back after using the toilet. This helps prevent the spread of bacteria. Urinate more often. Don't try to hold urine in for a long time. Wear loose-fitting clothes and cotton underwear. Don't wear tight-fitting pants. Improve your diet and prevent constipation. Eat mor e fresh fruits and vegetables, and fiber. 7 General Instructions [facility] Emergency Department [address] [place] [id number] Phone #: ext- [phone] 10/19/2020 18:26 Patient: REFUGIO EASON Sex: F : 1980 Age: 40y Eat less junk foods and fatty foods. Don't have sex until your symptoms are gone. Don't have caffeine, alcohol, and spicy foods. These can irritate your bladder. Urinate right after you have sex to flush out your traci dder. If you use control pills and have frequent bladder infections, discuss it with your healthcare provider.Follow-up careCall your healthcare provider if all symptoms are not gone after 3 days of treatment. This is especiallyimportant if you have repeat infections.If a culture was done, you will be told if your treatment needs to be changed. If directed, you cancall to find out the results.If X-rays were done, you will be told if the results will affect your treatment.Call [phone] if any of the following occur: Trouble breathing Hard to wake up or confusion Fainting (loss of consciousness) Fast heart rateWhen to get medical adviceCall your healthcare provider right away if any of these occur: Fever of 100.4F (38.0C) or higher, or as directed by your healthcare provider Symptoms are not better after 3 days of treatment Back or belly pain that gets worse Repeated vomiting, or unable to keep medicine down Weakness or dizziness Vaginal discharge Pain, redness, or swelling in the outer vaginal area (labia) 8 General Instructions [facility] Emergency Department [address] [place] [address] Phone #: ext- [phone] 10/19/2020 18:26 Patient: REFUGIO EASON Sex: F : 1980 Age: 40y [id number] [employer] [address] [place] [address], [place] [address]. All rights reserved. This information is not intended as asubstitute for professional medical care. Always follow your healthcare professional's instructions. You have been given the following additional information: Vomiting (Adult) Bladder Infection, Female (Adult)(Electronically signed by IVANNA Bush 10/19/2020 22:11) Name Value Range Interpretation Code Description Data Melonie rce(s) Supporting Document(s) ID Date Data Source [id number] 10/19/2020 06:44:00 PM EDT [facility] 1 Clinical Report - Nurses [facility] Emergency Department [address] [place] [address] Phone #: ext- [phone] 10/19/2020 18:26 Patient: REFUGIO EASON Sex: F : 1980 Age: 40yTRIAGEArrived by private vehicle. Historian: patient. Accompanied by family.Acuity: LEVEL 3.Chief Complaint: (DINAH flank pain. Nausea and vomiting.).Alert.Onset. (0700 today). ( patient started with severe lower back pain this am. Hot/cold flashes for the lastseveral hours. nausea with vomiting throughout the afternoon. "I have a history of kidney issues."). Nofever, weakness, cough, difficulty breathing or skin rash. Denies muscle aches.Treatment SUPERVISOR PILE DRIVING:None.RUT COMA SCORE: 15- eyes open- spontaneous (4); best verbal response- oriented (5); bestmotor response- obeys commands (6). --18:37 10/19/20 Jaclyn Fofana R.N.18:28 10/19/20. BP: 158/94. MAP: 115. HR: 6 2. RR: 20. O2 saturation: 100%. Temp: 97.2 F (temporal).Pain level now: 04/19. --18:37 10/19/20 Jaclyn Fofana R.N.Weight: 68 kg stated. Height/Length: 61 inches Per Patient. BMI: 28.3. --18:27 10/19/20 Jaclyn Fofana R.N.MedicationsImitrex Oral (Tablet 100 mg) 1 tablet, as needed. --18:32 10/19/20 Jaclyn Fofana R.N. ALPRAZolam Oral (Tablet 1 mg) 1/2 tablet, as needed. --18:33 10/19/20 Jaclyn Fofana R.N. HYDROcodone-Acetaminophen Oral (Tablet 10-300 mg) 1 tablet, q6h as needed. --18:33 10/19/20Jaclyn Fofana R.N. Basaglar KwikPen Subcutaneous 28 units, daily. --18:37 10/19/20 Jaclyn Fofana R.N.AllergiesNKDA. --18:32 10/19/20 Jaclyn Fofana R.N.PROBLEMS:Sepsis (disorder).Cholecystitis. --18:33 10/19/20 Jaclyn Fofana R.N.Diabetes Mellitus. --18:37 10/19/20 Jaclyn Fofana R.N.Medication/allergy information source: the patient and patient's family. --18:37 10/19/20 Jaclyn Fofana R.N. 2 Clinical Report - Nurses [facility] Emergency Department [address] [place] [address] Phone #: zob- [phone] 10/19/2020 18:26 [id number] Sex: F : 1980 Age: 40y ADDITIONAL SURGERIES: Cholecystectomy. --18:33 10/19/20 Jaclyn Fofana R.N. History PAST MEDICAL HX: Immunizations: up-to-date. Last normal menstrual period- 2 months prior. Denies current . SURGERY HX: No history of previous surgery. SOCIAL HX: Current every day heavy tobacco smoker (cigarette)- 1 pack per day. No alcohol use or drug use. The patient was offered HIV testing but declined and hepatitis C testing but declined. The patient has not traveled outside the [place] Infectious disease exposure: No infectious disease exposure. The patient was not exposed to C-diff, MRSA, VRE, CRE or Coronavirus. SELF HARM ASSESSMENT: Self harm assessment was performed. The patient answered "no" to the question(s) "Have you recently felt down, depressed, or hopeless?", "Do you have thoughts of harming or killing yourself?", "Do you have a plan for harming or killing yourself?", "Have you recently had thoughts about harming or killing others?", "Do you have any dangerous items in your possession?", "Have you noticed less interest or pleasure in doing things?", "Are you here because you tried to hurt yourself?" and "Have you ever tried to hurt yourself before today?". ABUSE ASSESSMENT: No report of abuse. NUTRITIONAL RISK ASSESSMENT: The nutritional risk assessment revealed no deficiencies. FUNCTIONAL ASSESSMENT: Functional assessment: no impairments noted. LEARNING NEEDS ASSESSMENT: The learning needs assessment revealed no barriers. FALL RISK ASSESSMENT: Fall risk assessment completed. No risk factors identified. SKIN INTEGRITY ASSESSMENT: Skin integrity risk assessment completed. No skin integrity risk identified. --18:37 10/19/20 Jaclyn Fofana RXavi.PHYSICAL ASSESSMENTAmbulatory to room.GENERAL / NEURO / PSYCH: Alert. Oriented X 4. Appears in no acute distress. Appears anxious.HEENT: Pupils equal, round and reactive to light. No facial asymmetry noted. Mucous membranes arepink.RESPIRATORY: Respirations not labored. Chest nontender. Breath sounds within normal limits.GI / : ( CVA tenderness).SKIN: Skin intact. Skin is warm and dry. Normal skin turgor. --19:14 10/19/20 Yesika Mari R.N. 3 Clinical Report - Nurses [facility] Emergency Department [address] [place] [address] Phone #: ext- [phone] 10/19/2020 18:26 Patient: REFUGIO EASON Sex: F : 1980 Age: 40yNURSING PROGRESS NOTESMonitoring of patient in place. Patient gowned. Head of bed elevated. Reassurance given. Call lightplaced in reach. Bed placed in lowest position. Brakes of bed on. Patient ready for evaluation. --18: Jaclyn Fofana R.N. 18:40 10/19/2020 Site #1 started via IV in the left wrist with an 20g angiocath, with aseptic technique and good blood return; one attempt. Blood drawn: rainbow set and green tube(s). Labeled in the presence of the patient and sent to the lab. Saline lock flushed with 10 mL saline. --18:40 10/19/20 Emanuel Alas RN 18:52 10/19/2020 Zofran (Ondansetron HCl) IVP 8 mg given over 3 minute(s) via site #1. Allergies verified and confirmed 5 rights. IV patency established. IV site checked: no pain, redness, or swelling. IV flushed thoroughly pre- and post-medication administration. IVP given by RN. Information reviewed with patient. Verbalizes understanding. --18:52 10/19/20 Jaclyn Fofana R.N. 18:53 10/19/2020 Toradol (Ketorolac Tromethamine) IVP 30 mg given over 3 minute(s) via site #1. Allergies verified and confirmed 5 rights. IV patency established. IV site checked: no pain, redness, or swelling. IV flushed thoroughly pre- and post-medication administration. IVP given by RN. Information reviewed. Verbalizes understanding. --18:53 10/19/20 Jaclyn Fofana R.N. 18:56 10/19/2020 Started bag #1 1000 mL IV Fluids NS; bolus of 1000 mL wide open via site #1 via IV pump. Allergies ve rified and confirmed 5 rights. IV patency established. IV site checked: no pain, redness, or swelling. IV flushed thoroughly pre- and post-medication administration. Information reviewed with patient. Verbalizes understanding. --18:56 10/19/20 Jaclyn Fofana R.N. Patient transported to NH by wheelchair with mask and commercial service technician. --18:56 10/19/20 Jaclyn Fofana R.N. EKG time: (late entry - 19:19 10/19/2020). EKG was ordered, performed by a tech and shown to the PA. --19:17 10/19/20 Bernice Roberts R.N. 19:17 10/19/2020 Ativan (LORazepam) IVP 2 mg given diluted in NS 10mL over 4 minute(s) via site #1. Allergies verified and confirmed 5 rights. IV patency established. IV site checked: no pain, redness, or swelling. IV flushed thoroughly pre- and post- medication administration. IVP given by RN. Information reviewed with patient including reason for taking this medication, signs of allergic reaction, precautions and sedative warning. Verbalizes understanding. --19:17 10/19/20 Bernice Roberts R.N. 19:10/19/2020 Ofirmev * IVPB 1000 mg --19:20 10/19/20 Bernice Roberts R.N. Reassessment acuity: LEVEL 3. ( Pt hyperventilating, not able to be still, making odd vocal noises; PA aware and aware of all VS). --19:20 10/19/20 Bernice Roberts R.N. 19:10/19/20. BP: 178/93. HR: 53. RR: 19. O2 saturation: 100%. --19:10/19/20 Bernice Roberts R.N. 4 Clinical Report - Nurses [facility] Emergency Department [address] [place] [address] Phone #: ext- [phone] 10/19/2020 18:26 Patient: REFUGIO EASON Sex: F : 1980 Age: 40y19:35 10/19/2020 Ofirmev IVPB Discontinued: bag #1 infused. Total amount infused: 100ml mL. IVpatency established. IV site checked: no pain, redness, or swelling. IV flushed thoroughly. --19:35 10/19/20Yesika Mari R.N.20:02 10/19/20. BP: 161/79. MAP: 106. HR: 57. RR: 15. O2 saturation: 100%. --20:02 10/19/20 [id number] 10[facility]19[facility]2020 IV Fluids NS via IV site #1 Discontinued: bag #1 completed. Total amount infused: 1000mL. --20:14 10/19/20 Farrah Sanchez R.N.20:30 10/19/20. BP: 144/93. MAP: 110. HR: 57. RR: 14. O2 saturation: 99% on room air. --20: Yesika Mari R.N.Oxygen administered by nasal cannula at 2 liters. compliance monitor, NIBP monitor and pulse oximeterplaced on patient; monitor alarms on. Patient gowned. Reassurance given.Rounding: Proximity of possessions / care items: call light within easy reach. Set expectations: advisedpatient of rounding protocol timing and asked if they needed anything else at this time. Patient waiting forlab results. --20:51 10/19/20 Yesika Mari R.N.( Pt up trying to provide a urine sample). --20:51 10/19/20 Yesika Mari R.N.21:00 10/19/20. compliance monitor, NIBP monitor and pulse oximeter placed on patient; monitor alarms on.Patient gowned. Reassurance given.Rounding: Proximity of possessions / care items: call light within easy re ach. Set expectations: advisedpatient of rounding protocol timing and asked if they needed anything else at this time. ( O2 left off pt aftertoileting, pt 100% on room air). --21:28 10/19/20 Yesika Mari R.N.21:03 10/19/2020 Fentanyl IVP 50 mcg given over 4 minute(s) via site #1. Allergies verified and confirmed5 rights. IV patency established. IV site checked: no pain, redness, or swelling. IV flushed thoroughly pre-and post-medication administration. IVP given by RN. Information reviewed with patient including sedativewarning. Verbalizes understanding. --21:04 10/19/20 Farrah Sanchez R.N.21:00 10/19/20. BP: 170/91. MAP: 117. HR: 58. RR: 20. O2 saturation: 100% on room air. --21: Yesika Mari R.N.21:36 10/19/2020 Started 1 gm of ROCEPHIN (1GM/50ML) (cefTRIAXone Sodium) IVPB in bag #1 50 mL;at 100 mL/hr via site #1. via IV pump. Allergies verified and confirmed 5 rights. IV patency established. IVsite checked: no pain, redness, or swelling. IV flushed thoroughly pre- and post-med ication administration.Information reviewed with patient including reason for taking this medication, signs of allergic reaction andprecautions. Verbalizes understanding. --21:46 10/19/20 Yesika Mari R.N.22:06 10/19/2020 ROCEPHIN (1GM/50ML) IVPB via IV site #1 Discontinued: bag #1 infused. Total amount 5 Clinical Report - Nurses [facility] Emergency Department [address] [place] [address] Phone #: ext- [phone] 10/19/2020 18:26 [id number] Sex[facility] F : 1980 Age: 40y infused: 50ml mL. IV patency established. IV site checked: no pain, redness, or swelling. IV flushed thoroughly. --22:18 10/19/20 Yesika Mari R.N. 22:10/19/2020 Site #1 removed upon discharge. Catheter intact. Bandage applied. --22:10/19/20 Yesika Mari R.N. 22:10/19/2020 PROMETHAZINE IVP 25 mg given over 5 minute(s) via site #1. Allergies verified and confirmed 5 rights. IV patency established. IV site checked: no pain, redness, or swelling. IV flushed thoroughly pre- and post-medication administration. IVP given by RN. Information reviewed with patient including reason for taking this medication, signs of allergic reaction, precautions and sedative warning. Verbalizes understanding. --:10/19/20 Paul Alonso.DISPOSITION / DISCHARGE 22:10/19/20. Departure time: late entry - 22:10/19/2020. Condition at departure: improved and stable. No learning barriers present. Discharge instructions provided and reviewed with the patient. Reviewed warnings. Reviewed medication(s) side effects, precautions, dosing and course information. Prescription(s) sent electronically to pharmacy (odansetron, cefdinir, fluconazole). Reviewed referral to a primary care physician for followup. Patient verbalized understanding. Written instructions provided in Macedonian. The patient was discharged by the physician department assistant. She was discharged home and accompanied by parent. She left ambulatory and via private vehicle. Parent driving. --22:10/19/20 Yesika Mari R.N. 22:10/19/20. BP: 158/90. MAP: 112. HR: 56. RR: 18. O2 saturation: 99% on room air. Temp: 97.4 F (oral). Pain level now: 08/20. --22:17 10/19/20 Yesika Mari R.N.Locked/Released at 10/19/2020 22:19 by Yesika Mari R.N. Name Value Range Interpretation Code Description Data Melonie rce(s) Supporting Document(s) ID Date Data Source [id number] 10/19/2020 06:44:00 PM EDT [facility] 1 Clinical Report - Physicians/Mid Levels [facility] Emergency Department [address] [place] [address] Phone #: ext- [phone] 10/19/2020 18:26 Patient: REFUGIO EASON Sex: F : 1980 Age: 40y Time Seen: 18:30 10/19/2020. Arrived- By private vehicle. Historian- patient, EMS personnel and mother.HISTORY OF PRESENT ILLNESS Chief Complaint: ABDOMINAL PAIN and FLANK PAIN and VOMITING, NAUSEA and CHEST PAIN. This started today patient started with severe lower back pain this am. Hot/cold flashes for the last several hours. nausea with vomiting throughout the afternoon. "I have a history of kidney issues."). No fever, weakness, cough, difficulty breathing or skin rash. Denies muscle aches. and is still present. It was abrupt in onset and has been constant. It is described as "pain", sharp and cramping and it is described as located in the right flank, the central chest, the epigastric area and the left flank. At its maximum, severity described as severe. When seen in the E.D., severity described as severe. The patient has had nausea and vomiting. No loss of appetite or diarrhea. Similar symptoms previously. Patient has had similar symptoms several times. Recent medical care: Not recently seen/assessed.REVIEW OF SYSTEMSLast normal menstrual period- 2 months ago, denies . No constipation, black stools,hematemesis, pain with urination or urinary frequency. No bloody stools, fever, headache, sore th roat orblurred vision. No difficulty breathing, cough, joint pain, skin rash or chills. No back pain. The patienthas had chest pain but not had weight loss.PAST HISTORYProblems:Diabetes Mellitus.Sepsis (disorder).Cholecystitis. Additional Surgeries: Cholecystectomy. Medications: Basaglar KwikPen Subcutaneous 28 units, daily. HYDROcodone-Acetaminophen Oral (Tablet 10-300 mg) 1 tablet, q6h as needed. ALPRAZolam Oral (Tablet 1 mg) 1/2 tablet, as needed. Imitrex Oral (Tablet 100 mg) 1 tablet, as needed. Allergies: NKDA.SOCIAL HISTORY 2 Clinical Report - Physicians/Mid Levels [facility] Emergency Department [address] [place] [address] Phone #: ext- [phone] 10/19/2020 18:26 Patient: REFUGIO EASON Sex: F : 1980 Age: 40y Heavy tobacco smoker (cigarette)- 1 pack per day. Alcohol use. No drug use.PHYSICAL EXAMVital Signs: 10/19/2020 18:28 BP: 158/94. MAP: 115. HR: 62. RR: 20. O2 saturation: 100%. Temp: 97.2F. Pain level now: 04/19. Have been reviewed as abnormal. Hypertensive. Oxygen saturation normal.Appeara nce: Alert. Oriented X3. No acute distress.Eyes: Pupils equal, round and reactive to light. Eyes normal inspection.ENT: Ears normal. Nose normal. Pharynx normal.Neck: Normal inspection. Neck supple.CVS: Normal heart rate and rhythm. Heart sounds normal.Respiratory: No respiratory distress. Breath sounds normal.Abdomen: Soft. Mild tenderness in the epigastric area. Bowel sounds normal. No organomegaly. Nomass.Back: Mild CVA tenderness on the right and left.Skin: Skin warm and dry. Normal skin color. No rash. Normal skin turgor.Extremities: Extremities exhibit normal ROM. No lower extremity edema.Ne uro: Oriented X 3.LABS, X-RAYS, AND EKGCT Abdomen - Pelvis: 1. Multiple small follicles in both ovaries. The appearance raises the possibility of polycystic ovarian syndrome 2. Otherwise unremarkable noncontrast CT of the abdomen and pelvis. Study type: renal stone evaluation. Abdomen - pelvic CT performed without contrast. The study was interpreted by the radiologist and contemporaneously by me. Interpretation time: 20:04 10/19/2020. Laboratory Tests: ETOH: (USMAN: 10/19/2020 18:48) [facility] Final results Test Result Flag Units (Reference) ALCOHOL <10.0 MG/DL ALCOHOL % 0.01 % (0.00 - 0.01) *FOR MEDICAL PURPOSES ONLY* Troponin-T: (USMAN: 10/19/2020 18:48) ( [facility] 10/19/[facility] 19:45) Final results Test Result Flag Units (Reference) TROPONIN T <0.01 NG/ML (0.00 - 0.10) TROPONIN T0.1 ng/ml Recommended as the clinical threshold value forTroponin T. Chest Portable 1 View: (USMAN: 10/19/2020 18:47) ( [facility] 10/19/[facility] 19:59) In Progress CHEST PORTABLE Reason(s): Chest Pain TRANSPORTATION: IV? O2? Oxygen?(No) Room: ED CT ABD PEL W/O Oral W/O IV Contrast: (USMAN: 10/19/2020 18:46) ( [facility] 10/19/[facility] 19:29) Final results 3 Clinical Report - Physicians/Mid Levels [facility] Emergency Department [address] [place] [address] Phone #: ext- [phone] 10/19/2020 18:26 Patient: REFUGIO EASON Sex: F : 1980 Age: 40yExamCT ABD //T// PELV W/O ORAL W/O IV [address] [facility] [place] [address]---------HOTL--------- NUMBER SEX AGE ADMIT DISCCassie BARNETT# F/C JOSEMANUEL HUFF N [id number] F 40 10/19/20 [id number] XBM E/R DATE OF : 1980 M/R# [id number] #: [phone] TR-02 LOCATION: EMERGENCY DEPT TRANSCRIBED: 10/19/20 19:[address] ABD //T// PELV W/[place] ORAL W/[place] [id number] COMPLETED:10/19/20 19:22 joceline [id number] Reason(s): Abdominal Pain PHYSICIAN: TOSHA ARMENTA ========= R A D I O L O G Y R E P O R T PATIENT HISTORY:RIGHT FLANK AND BACK PAIN, CT DOSE- 627.5mGy*cm, VERIFIED 2 IDENTIFIERS, SIGNEDWAIVER. / CORONAL (DICOM Hx)EXAM: CT Abdomen and Pelvis Without IV contrastCLINICAL HISTORY: RIGHT FLANK AND BACK PAIN, CT DOSE- 627.5mGy*cm, VERIFIED 2IDENTIFIERS, SIGNED WAIVER.TECHNIQUE: Axial computed tomography images of the abdomen and pelvis withoutintravenous contrast. / All CT scans at this facility use dose modulation,iterative reconstruction, and/or weight-based dosing when appropriate to reduceradiation dose to as low as reasonably achievable.CONTRAST: No IV contrast.COMPARISON: None provided.FINDINGS:LUNG BASES: The lung bases appear clear. No pleural effusions are seen.LIVER: Unremarkable.GALLBLADDER AND BILE DUCTS: The gallbladder appears within normal limits. Noradioopaque gallstones are seen. No biliary ductal dilatation is evident.PANCREAS: Unremarkable.SPLEEN: Unremarkable.ADRENAL GLANDS: Unremarkable.KIDNEYS, URETERS, AND BLADDER: The kidneys appear within normal limits. There isno hydronephrosis or hydroureter. No urinary calculi are seen.STOMACH AND BOWEL: Unremarkable appearance of the stomach and bowel. No evidenceof bowel obstruction. No evidence suggesting enteritis or colitis.APPENDIX: No evidence of acute appendicitis on CT examination.PERITONEUM: No free fluid. No free air.LYMPH NODES: No lymphadenopathy is evident. 4 Clinical Report - Physicians/Mid [facility] Emergency Department [address] [place] [address] Phone #: ext- [phone] 10/19/2020 18:26 Patient: REFUGIO EASON Sex: F : 1980 Age: 40y REPRODUCTIVE: There are multiple small follicles in both ovaries. VASCULATURE: No evidence of abdominal aortic aneurysm. BONES: No aggressive appearing osseous lesion. No acute osseous pathology evident. IMPRESSIONS: 1. Multiple small follicles in both ovaries. The appearance raises the possibility of polycystic ovarian syndrome 2. Otherwise unremarkable noncontrast CT of the abdomen and pelvis While performing the above CT examination, radiation dose reduction was accomplished utilizing automated exposure control, adjusting of the mA and kV based on the patient's body size and/or the use of imperative reconstructive techniques. Electronically Signed By: Deacon Bowen MD , Radiologist Date/Time: 10/19/20 19:22CBC w Diff: (USMAN: 10/19/2020 18:48) ( MsgRcvd 10/19/2020 19:45) Final results Test Result Flag Units (Reference) CBC W/AUTOMATED DIFF COMPLETE BLOOD COUNT WBC 21.7 H 10/uL (4.2 - 11.0) RBC 5.39 10/uL (4.20 - 5.40) HEMOGLOBIN 15.8 g/dL (12.0 - 16.0) HEMATOCRIT 45.3 % (37.0 - 47.0) MCV 84.0 fL (81.0 - 101) MCH 29.3 pg (27.0 - 34.0) MCHC 34.9 g/dL (31.0 - 36.0) RDW 14.4 % (11.5 - 14.5) PLATELETS 440 10/uL (150 - 450) MPV 10.3 fL (7.4 - 10.4) NEUT 85.9 H % (37.0 - 80.0) LYMPH 10.3 L % (25.0 - 40.0) MONO 2.8 L % (3.0 - 8.0) EOS 0.0 % (0.0 - 7.0) BASO 0.5 % (0.0 - 2.5) %IG 0.5 H % (0.0 - 0.0) %NRBC 0.0 % (0.0 - 0.0) #NEUT 18.61 H 10/uL (2.00 - 6.90) #LYMPH 2.23 10/uL (0.60 - 3.40) #MONO 0.60 10/uL (0.00 - 0.90) #EOS 0.01 10/uL (0.00 - 0.70) #BASO 0.11 10/uL (0.00 - 0.20) #IG 0.11 H 10/uL (0.00 - 0.10) #NRBC 0.00 10/uL (0.00 - 0.00) MANUAL DIFF NOT INDICATED RBC MORPH NOT INDICATEDCMP: (USMAN: 10/19/2020 18:48) ( MsgRcvd 10/19/2020 19:45) Final results Test Result Flag Units (Reference) COMPREHENSIVE METABOLIC PANEL 5 Clinical Report - Physicians/Mid Levels [facility] Emergency Department [address] [place] [address] Phone #: ext- [phone] 10/19/2020 18:26 Patient: REFUGIO EASON [facility]#: [id number] Sex: F : 1980 Age: 40y COMPREHENSIVE METABOLIC PANEL SODIUM 138 mEq/L (134 - 153) POTASSIUM 4.4 mEq/L (3.6 - 5.0) CHLORIDE 99 mEq/L (98 - 107) CO2 17 L MEQ/L (22 - 30) GLUCOSE 230 H MG/DL (70 - 99) BUN 20 MG/DL (7 - 21) CREATININE 0.7 MG/DL (0.7 - 1.5) BUN/CREAT 29 H (8 - 27) TOTAL PROTEIN 8.3 H G/DL (6.3 - 8.2) ALBUMIN 5.3 H G/DL (3.9 - 5.0) GLOBULIN 3.0 GM/DL (2.4 - 3.2) A/G RATIO 1.8 (0.8 - 2.0) CALCIUM 10.5 H MG/DL (8.4 - 10.2) TOTAL BILI 0.8 MG/DL (0. 2 - 1.3) ALKALINE PHOS 94 U/L (38 - 126) SGOT/AST 11 U/L (5 - 40) SGPT/ALT 12 U/L (7 - 56) ANION GAP 22.0 H mmol/L (8.0 - 16.0) AGE 40 yrs NON-AA GFR >60 mL/min AFR AMER GFR >60 mL/min Male GFR Interprentation 20-49 yrs >60 mL/min Normal 50-59 yrs >56 mL/min Normal 60-69 yrs >49 mL/min Normal 70-79yrs >42 mL/min Normal 80 and above >35 mL/min Normal Female GFR Interpretation 20-39 yrs >60 mL/min Normal 40-49 yrs >58 mL/min Normal 50-59 yrs >51 mL/min Normal 60-69 yrs >45 mL/min Normal 70-79 yrs >39 mL/min Normal 80 and above >32 mL/min Normal Lipase: (USMAN: 10/19/2020 18:48) ( MsgRcvd 10/19/2020 19:39) Final results Test Result Flag Units (Reference) LIPASE 17 U/L (13 - 60).PROGRESS AND PROCEDURESCourse of Care: 21:58 Oct 19 2020. Evaluation after observation. (Pt had marked relief with Ativan andthen when symptoms returned with Fentanyl, pt reports being seen at [facility] recently for similar symptomsand refused to believe this was cyclic vomiting from THC abuse, UDS is pos. for THC today, labs c/wrespiratory acidosis from hyperventilation and compensated metabolic alkalosis. Pt would like to bedischarged home and will follow up with her PCM and Urology for recurring UTI'S.). Patient and mother counseled in person regarding the patient's stable condition, test results, diagnosis and need for follow-up. Patient and mother agrees with plan of care. 22:Oct 19 2020. Disposition: Discharged home in good and improved condition (:Oct 19 2020).CLINICAL IMPRESSION Intractable vomiting with nausea. Acute urinary tract infection with cystitis and hematuria. 6 Clinical Report - Physicians/Mid Levels [facility] Emergency Department [address] [place] [address] Phone #: ext- [phone] 10/19/2020 18:26 Patient: REFUGIO EASON Sex: F : 1980 Age: 40yINSTRUCTIONS (Stop smoking marijuana as this may be causing your vomiting!). Warnings: Further evaluation is necessary. It is very important to follow up with a healthcare provider. GENERAL WARNINGS: Return or contact your physician immediately if your condition worsens or changes unexpectedly, if not improving as expected, or if other problems arise. SPECIFICALLY, return if you develop blood in vomitus, blood in diarrhea, fainting, lightheadedness or vaginal bleeding; or if there is no improvement in the pain in the abdomen, vomiting or inability to keep fluids down. Your Current Medications: Your current home medications have been reviewed. CONTINUE TAKING THE FOLLOWING MEDICATIONS: ALPRAZolam Oral : Tablet 1 mg, 1/2 tablet, prn. Trudy AvilesPen Subcutaneous : 28 units daily. HYDROcodone-Acetaminophen Oral : Tablet 10-300 mg, 1 tablet q6h, prn. Imitrex Oral : Tablet 100 mg, 1 tablet, prn. Prescription Medications: ondansetron 8 mg disintegrating tablet Take 1 tablet three times a day for 10 days -- Dispense 30 tablet. Refills: 0. Substitution permitted. [facility] - [address] [place] [address]. . cefdinir 300 mg capsule Take 1 capsule twice a day for 7 days -- Dispense 14 capsule. Refills: 0. Substitution permitted. [facility] - [address] [place] [address]. . fluconazole 150 mg tablet Take 1 tablet single dose as needed for 1 days -- May repeat in 1 week if s/s persist. Dispense 2 tablet. Refills: 0. Substitution permitted. [facility] - [address] [place] [address]. . Follow-up: Follow up with your doctor Tuesday. Reason for referral: evaluation, treatment and refer to Urology, Pain management and MRI for Chronic back pain is symptoms worsen.. Summary of care provided to patient. Understanding of the discharge instructions verbalized by patient. 7 Clinical Report - Physicians/Mid Levels [facility] Emergency Department [address] [place] [address] Phone #: [phone] 10/19/2020 18:26 Patient: REFUGIO EASON Sex: F : 1980 Age: 40y(Electronically signed by IVANNA Bush 10/19/2020 22:11) Name Value Range Interpretation Code Description Data Melonie rce(s) Supporting Document(s) ID Date Data Source [id number] 10/23/2020 08:29:00 PM EDT [facility] Name Value Range Interpretation Code Description Data Melonie rce(s) Supporting Document(s) CULTURE URINE [facility] _CULTURE URINE_$$[id number]$$[id number]$$149267$$582915$$555663$$388072$$676489$$217186$$321187$$ 438430$$923264$$478484$$153342$$479799$$749421$$584155$$340927$$394764$$094273$$ 392563$$181099$$430630$$069258$$496252$$032915$$712876$$[id number] -- Continued on next page --Patient: YUMI HUFF N Order: [id number] Page 2Culture: CULTURE URINE Status: Final ==== -- Continued on next page --Patient: YUMI HUFF N Order: [id number] Page 2Culture: CULTURE URINE Status: Prelim =====$$[id number] DATE/TIME: 10/23/2020 15:06Culture: CULTURE URINE Status: FinalIsolate 1 Escherichia coli Flag: A . . . . . . .1Greater than 100,000 colony forming units per mLSusceptibility profile is consistent with a probable ESBL. Previous result entered on 10/23/2020 00:28 ET Escherichia coliUrine Culture,Comprehensive: [id number] coli Flag: APatient: YUMI Keane Order: [id number] Page 3Culture: CULTURE URINE Status: Final ISOLATE 1 Escherichia coli Isolate 1Antibiotic SOFIA IntUnits ug/mL Amoxicillin/Clavulanic Acid S S . . . . . .20-8Ampicillin R R . . . . . .28-1Cefazolin R R . . . . . .76-0Cefepime R R . . . . . .6644- 9Ceftriaxone R R . . . . . .141-2Cefuroxime R R . . . . . .145-3Ciprofloxacin R R . . . . . .185-9Ertapenem S S . . . . . .43699-0Eprtehsrtl S S . . . . . .267-5Imipenem S S . . . . . .279-0Levofloxacin R R . . . . . .98660- 8Meropenem S S . . . . . .6652-2Nitrofurantoin S S . . . . . .363-2Piperacillin/Tazobactam S S . . . . . .412-7Tetracycline S S . . . . . .496-0Tobramycin S S . . . . . .508- 2Trimethoprim/Sulfa S S . . . . . .516-5P1 Test performed by: [facility] #: [id number] [address] [place] [address] [id number] [facility] [id number] Director : Frederick Garay MD NPI #:Cargo Bracer : 10/23/20.0654.XMT.SENT REF 10/23/20.XMT.SENT REF ID Date Data Source [id number] 10/19/2020 09:28:00 PM EDT [facility] Name Value Range Interpretation Code Description Data Melonie rce(s) Supporting Document(s) DRUG SCREEN URINE [facility] URINE DRUG SCREEN Amphetamine [Presence] in Urine by Screen method NEGATIVE NORMAL: N EGATIVE [facility] BARBITURATES NEGATIVE NORMAL: NEGATIVE [facility] BENZO NEGATIVE NORMAL: NEGATIVE [facility] COCAINE NEGATIVE NORMAL: NEGATIVE [facility] Tetrahydrocannabinol [Presence] in Urine PRESUMP POS NORMAL: NEGATIVE [facility] OPIATES NEGATIVE NORMAL: NEGATIVE [facility] Phencyclidine [Presence] in Urine by Screen method NEGATIVE NOR MAL: NEGATIVE [facility] \\BLDo\\URINE DRUG SCR EEN INTERPRETATION\\BLDx\\ THE CUTOFFF LEVELS FOR DETECTION ARE FOLLOWS: AMPHETAMINES 1000 ng/ml BARBITUARATES 200 ng/ml BENZODIAZEPINES 100 ng/ml THC 50 ng/ml PHENCYCLIDINE 25 ng/ml OPIATES 300 ng/ml COCAINE 300 ng/ml ALL POSITIVES ARE CONSIDERED PRESUMPTIVE POSITIVE CONFIRMATION WILL BE PERFORMED AT PHYSICIAN REQUEST. ID Date Data Source [id number] 10/19/2020 09:24:00 PM EDT [facility] Name Value Range Interpretation Code Description Data Melonie rce(s) Supporting Document(s) URINALYSIS [facility] sangeetha URINALYSIS SOURCE Clean Catch [facility] COLOR yellow NORMAL: Yellow [facility] CLARITY hazy NORMAL: Clear [facility] Specific gravity of Urine by Test strip 1.015 1.001 - 1.030 [facility] 6.5 5 - [facility] Glucose [Mass/volume] in Urine by Test strip 250 NORMAL: Negat sabrina A [facility] Bilirubin.total [Presence] in Urine by Test strip NEG NORMAL: Negative [facility] Ketones [Presence] in Urine by Test strip 150 NORMAL: Negative [facility] Protein [Mass/volume] in Urine by Test strip 30 NORMAL: Negat sabrina [facility] Nitrite [Presence] in Urine by Test strip POS NORMAL: Negative [facility] BLOOD 10 NORMAL: Negative [facility] Leukocyte esterase [Presence] in Urine by Test strip 100 JL L: Negative [facility] Urobilinogen [Mass/volume] in Urine by Test strip NOR less ruben n 1.0 mg/dL [facility] MICROSCOPIC See Below [facility] WBC 30 - 40 NORMAL: NONE SEEN [facility] Erythrocytes [#/volume] in Urine by Test strip 0 - 1 NORMAL: NON E SEEN [facility] EPITHELIAL FEW NORMAL: NONE SEEN [facility] Bacteria [Presence] in Urine sediment by Light microscopy 1+ SMALL NORMAL: NONE SEEN [facility] ID Date Data Source [id number] 10/19/2020 08:36:00 PM EDT [facility] Name Value Range Interpretation Code Description Data Melonie rce(s) Supporting Document(s) SITE RADIAL LT [facility] pH of Arterial blood 7.47 7.34 - 7.44 H [facility] Carbon dioxide [Partial pressure] in Blood 26.0 mm/HG 32.0 - 42.0 L [facility] Oxygen [Partial pressure] in Blood 86.0 mm/HG 75.0 - 100 [facility] Bicarbonate [Moles/volume] in Blood 18.3 meq/L 20.0 - 24.0 L [facility] TCO2 19.1 meq/L 21.0 - 25.[address] [facility] pital Base excess in Blood by calculation -3.7 -2.0 - 2.0 L [facility] O2 SAT 97.0 % 95.0 - 98.0 [facility] ID Date Data Source [id number] 10/19/2020 07:22:00 PM EDT [facility] [address] [place] [address] ---------NAME--------- NUMBER SEX AGE ADMIT DISC. XRAY# F/C TYPE YUMI HUFF N [id number] F 40 10/19/20 [id number] XBM E/R DATE OF : 1980 M/R# [id number] #: [id number] TR-02 LOCATION: EMERGENCY DEPT TRANSCRIBED: 10/19/20 19:[address] ABD //T// PELV W/O ORAL W/[place] [id number] COMPLETED:10/19/20 19:22 joceline 8500 Reason(s): Abdominal Pain PHYSICIAN: TOSHA AEMS ORTH === R A D I O L O G Y R E P O R T PATIENT HISTORY:RIGHT FLANK AND BACK PAIN, CT DOSE- 627.5mGy*cm, VERIFIED 2 IDENTIFIERS, SIGNEDWAIVER. / CORONAL (DICOM Hx)EXAM: CT Abdomen and Pelvis Without IV contrastCLINICAL HISTORY: RIGHT FLANK AND BACK PAIN, CT DOSE- 627.5mGy*cm, VERIFIED 2IDENTIFIERS, SIGNED WAIVER.TECHNIQUE: Axial computed tomography images of the abdomen and pelvis withoutintravenous contrast. / All CT scans at this facility use dose modulation,iterative reconstruction, and/or weight-based dosing when appropriate to reduceradiation dose to as low as reasonably achievable.CONTRAST: No IV contrast.COMPARISON: None provided.FINDINGS:LUNG BASES: The lung bases appear clear. No pleural effusions are seen.LIVER: Unremarkable.GALLBLADDER AND BILE DUCTS: The gallbladder appears within normal limits. Noradioopaque gallstones are seen. No biliary ductal dilatation is evident.PANCREAS: Unremarkable.SPLEEN: Unremarkable.ADRENAL GLANDS: Unremarkable.KIDNEYS, URETERS, AND BLADDER: The kidneys appear within normal limits. There isno hydronephrosis or hydroureter. No urinary calculi are seen.STOMACH AND BOWEL: Unremarkable appearance of the stomach and bowel. No evidenceof bowel obstruction. No evidence suggesting enteritis or colitis.APPENDIX: No evidence of acute appendicitis on CT examination.PERITONEUM: No free fluid. No free air.LYMPH NODES: No lymphadenopathy is evident.REPRODUCTIVE: There are multiple small follicles in both ovaries.VASCULATURE: No evidence of abdominal aortic aneurysm.BONES: No aggressive appearing osseous lesion. No acute osseous pathologyevident.IMPRESSIONS:1. Multiple small follicles in both ovaries. The appearance raises thepossibility of polycystic ovarian syndrome2. Otherwise unremarkable noncontrast CT of the abdomen and pelvisWhile performing the above CT examination, radiation dose reduction wasaccomplished utilizing automated exposure control, adjusting of the mA and kVbased on the patient's body size and/or the use of imperative reconstructivetechniques.Electronically Signed By:Deacon Bowen MD , RadiologistDate/Time: 10/19/20 19:22 Name Value Range Interpretation Code Description Data [facility] rce(s) Supporting Document(s) ID Date Data Source [id number] 10/19/2020 07:44:00 PM EDT [facility] Name Value Range Interpretation Code Description Data [facility] Document(s[facility] CBC W/AUTOMATED DIFF [facility] COMPLETE BLOOD COUNT Leukocytes [#/volume] in Blood by Automated count 21.7 10^3/uL 4.2 - 11.0 H [facility] Erythrocytes [#/volume] in Blood by Automated count 5.39 10^6/uL 4. 20 - 5.40 [facility] Hemoglobin [Mass/volume] in Blood 15.8 g/dL 12.0 - 16.0 [facility] Hematocrit [Volume Fraction] of Blood by Automated count 45.3 % 3 7.0 - 47.0 [facility] Erythrocyte mean corpuscular volume [Entitic volume] by Auto mated count 84.0 fL 81.0 - 101 [facility] Erythrocyte mean corpuscular hemoglobin [Entitic mass] by Automated count 29.3 pg 27.0 - 34.0 [facility] Erythrocyte mean corpuscular hemoglobin concentration [Mass/volume] by Automated count 34.9 g/dL 31.0 - 36.0 [facility] Erythrocyte distribution width [Ratio] by Automated count 14.4 % 11.5 - 14.5 [facility] Platelets [#/volume] in Blood by Automated count 440 10^3/uL 150 - 45 0 [facility] Platelet mean volume [Entitic volume] in Blood by Automated count 10.3 fL 7.4 - 10.4 [facility] Neutrophils/100 leukocytes in Blood by Automated count 85.9 % 37. 0 - 80.0 H [facility] Lymphocytes/100 leukocytes in Blood by Manual count 10.3 % 25.0 - 40.0 L [facility] Monocytes/100 leukocytes in Blood by Automated count 2.8 % 3.0 - 8.0 L [facility] Eosinophils/100 leukocytes in Blood by Automated count 0.0 % 0.0 - 7.0 [facility] Basophils/100 leukocytes in Blood by Automated count 0.5 % 0.0 - 2.5 [facility] %IG 0.5 % 0.0 - 0.0 [facility] %NRBC 0.0 % 0.0 - 0.0 [facility] al Neutrophils [#/volume] in Blood by Automated count 18.61 10^3/uL 2. 00 - 6.90 H [facility] Lymphocytes [#/volume] in Blood by Automated count 2.23 10^3/uL 0.60 - 3.40 [facility] Monocytes [#/volume] in Blood by Automated count 0.60 10^3/uL 0.00 - 0.90 [facility] Eosinophils [#/volume] in Blood by Automated count 0.01 10^3/uL 0.00 - 0.70 [facility] Basophils [#/volume] in Blood by Automated count 0.11 10^3/uL 0.00 - 0.20 [facility] #IG 0.11 10^3/uL 0.00 - 0.10 H [facility]spital #NRBC 0.00 10^3/uL 0.00 - 0.00 [facility] MANUAL DIFF NOT INDICATED [facility] RBC MORPH NOT INDICATED [facility] ID Date Data Source [id number] 10/19/2020 07:44:00 PM EDT [facility] Name Value Range Interpretation Code Description Data Melonie rce(s) Supporting Document(s) TROPONIN T <0.01 NG/ML 0.00 - 0.10 [facility] TROPONIN T0.1 ng/ml Recommended as the c linical threshold value forTroponin T. ID Date Data Source [id number] 10/19/2020 07:44:00 PM EDT [facility] Name Value Range Interpretation Code Description Data Melonie e(s) Supporting Document(s) COMPREHENSIVE METABOLIC PANEL [facility] COMPREHENSIVE METABOLIC PANEL Sodium [Moles/volume] in Serum or Plasma 138 mEq/L 134 - 153 [facility] Potassium [Moles/volume] in Serum or Plasma 4.4 mEq/L 3.6 - 5.0 [facility] Chloride [Moles/volume] in Serum or Plasma 99 mEq/L 98 - 107 [facility] Carbon dioxide, total [Moles/volume] in Serum or Plasma 17 MEQ/L 22 - 30 L [facility] Glucose [Mass/volume] in Serum or Plasma 230 MG/DL 70 - 99 H [facility] BUN 20 MG/DL 7 - 21 [facility] Creatinine [Mass/volume] in Serum or Plasma 0.7 MG/DL 0.7 - 1.5 [facility] BUN/CREAT 29 8 - 27 H [facility] al Protein [Mass/volume] in Serum or Plasma 8.3 G/DL 6.3 - 8.2 H [facility] Albumin [Mass/volume] in Serum or Plasma 5.3 G/DL 3.9 - 5.0 H [facility] Globulin [Mass/volume] in Serum by calculation 3.0 GM/DL 2.4 - 3.2 [facility] A/G RATIO 1.8 0.8 - 2.0 [facility] Calcium [Mass/volume] in Serum or Plasma 10.5 MG/DL 8.4 - 10.2 H [facility] Bilirubin.total [Mass/volume] in Serum or Plasma 0.8 MG/DL 0.2 - 1.3 [facility] Alkaline phosphatase [Enzymatic activity/volume] in Serum or Plasma 94 U/L 38 - 126 [facility] Aspartate aminotransferase [Enzymatic activity/volume] in Serum or Plasma 11 U/L 5 - 40 [facility] Alanine aminotransferase [Enzymatic activity/volume] in Seru m or Plasma 12 U/L 7 - 56 [facility] Anion gap 3 in Serum or Plasma 22.0 mmol/L 8.0 - 16.0 H [facility] AGE 40 yrs [facility] NON-AA GFR >60 mL/min [facility] AFR AMER GFR >60 mL/min [facility] Male GFR In terprentation 20-49 yrs >60 mL/min Normal 50-59 yrs >56 mL/min Normal 60-69 yrs >49 mL/min Normal 70-79yrs >42 mL/min Normal 80 and above >35 mL/min Normal Female GFR Interpretation 20-39 yrs >60 mL/min Normal 40-49 yrs >58 mL/min Normal 50-59 yrs >51 mL/min Normal 60-69 yrs >45 mL/min Normal 70-79 yrs >39 mL/min Normal 80 and above >32 mL/min Normal ID Date Data Source [id number] 10/19/2020 07:39:00 PM EDT [facility] Name Value Range Interpretation Code Description Data Melonie rce(s) Supporting Document(s) Ethanol [Moles/volume] in Blood <10.0 MG/DL [facility] ALCOHOL % 0.01 % 0.00 - 0.01 [facility] *FOR MEDICAL PURPOSES ONLY * ID Date Data Source [id number] 10/19/2020 07:39:00 PM EDT [facility] Name Value Range Interpretation Code Description Data Melonie rce(s) Supporting Document(s) Lipase [Enzymatic activity/volume] in Serum or Plasma 17 U/L 13 - 60 [facility] ID Date Data Source [id number] 05/13/2020 08:27:05 AM [facility] Current Problems: Impacted tooth (ICD-52 0.6) (ELY99-F66.1) Dental Chart: Procedures:Type - CDT Code - [...] today's appointment. Recommended pt try using a overnight associate, hot/cold compresses/ and ibuprofen to help with [...] Assessment & Plan Problems:Added: Impacted tooth (ICD-520.6) (PYU26-U09.1) Name Value Range Interpretation Code Description Data Melonie rce(s) Supporting Document(s) Procedure Social History Code Duration Value Status Description Data Source(s ) Smoking 02/06/2021 12:00:00 AM EDT Current Smoker completed Curre nt Smoker eCW1 ([facility]) Smoking 02/06/2021 12:00:00 AM EDT Current Smoker completed Curre nt Smoker eCW1 ([facility]) Smoking 02/06/2021 12:00:00 AM EDT Current Smoker completed Curre nt Smoker eCW1 ([facility]) Smoking 02/06/2021 12:00:00 AM EDT Current Smoker completed Curre nt Smoker eCW1 ([facility]) Smoking 02/06/2021 12:00:00 AM EDT Current Smoker completed Curre nt Smoker eCW1 ([facility]) Smoking 02/06/2021 12:00:00 AM EDT Current Smoker completed Curre nt Smoker eCW1 ([facility]) Smoking 02/06/2021 12:00:00 AM EDT Current Smoker completed Curre nt Smoker eCW1 ([facility]) Smoking 02/06/2021 12:00:00 AM EDT Current Smoker completed Curre nt Smoker eCW1 ([facility]) Smoking 02/06/2021 12:00:00 AM EDT Current Smoker completed Curre nt Smoker eCW1 ([facility]) Smoking 02/06/2021 12:00:00 AM EDT Current Smoker completed Curre nt Smoker eCW1 ([facility]) Smoking 02/06/2021 12:00:00 AM EDT Current Smoker completed Curre nt Smoker eCW1 ([facility]) Smoking 11/21/2020 12:00:00 AM EDT Current Smoker completed Curre nt Smoker eCW1 ([facility]) Smoking 11/21/2020 12:00:00 AM EDT Current Smoker completed Curre nt Smoker eCW1 ([facility]) Smoking 11/21/2020 12:00:00 AM EDT Current Smoker completed Curre nt Smoker eCW1 ([facility]) Smoking 11/21/2020 12:00:00 AM EDT Current Smoker completed Curre nt Smoker eCW1 ([facility]) Smoking 11/21/2020 12:00:00 AM EDT Current Smoker completed Curre nt Smoker eCW1 ([facility]) Smoking 11/21/2020 12:00:00 AM EDT Current Smoker completed Curre nt Smoker eCW1 ([facility]) Smoking 11/21/2020 12:00:00 AM EDT Current Smoker completed Curre nt Smoker eCW1 ([facility]) Smoking 10/24/2020 12:00:00 AM EDT Current Smoker completed Curre nt Smoker eCW1 ([facility]) Smoking 10/24/2020 12:00:00 AM EDT Current Smoker completed Curre nt Smoker eCW1 ([facility]) Smoking 10/24/2020 12:00:00 AM EDT Current Smoker completed Curre nt Smoker eCW1 ([facility]) Smoking 10/24/2020 12:00:00 AM EDT Current Smoker completed Curre nt Smoker eCW1 ([facility]) Smoking 10/24/2020 12:00:00 AM EDT Current Smoker completed Curre nt Smoker eCW1 ([facility]) Smoking 10/24/2020 12:00:00 AM EDT Current Smoker completed Curre nt Smoker eCW1 ([facility]) Smoking 10/24/2020 12:00:00 AM EDT Current Smoker completed Curre nt Smoker eCW1 ([facility]) Smoking 09/24/2020 12:00:00 AM EDT Current Smoker completed Curre nt Smoker eCW1 ([facility]) Smoking 09/24/2020 12:00:00 AM EDT Current Smoker completed Curre nt Smoker eCW1 ([facility]) Smoking 09/24/2020 12:00:00 AM EDT Current Smoker completed Curre nt Smoker eCW1 ([facility]) Smoking 09/24/2020 12:00:00 AM EDT Current Smoker completed Curre nt Smoker eCW1 ([facility]) Smoking 09/24/2020 12:00:00 AM EDT Current Smoker completed Curre nt Smoker eCW1 ([facility]) Smoking 09/24/2020 12:00:00 AM EDT Current Smoker completed Curre nt Smoker eCW1 ([facility]) Smoking 09/01/2020 12:00:00 AM EST Current Smoker completed Curre nt Smoker eCW1 ([facility]) Smoking 09/01/2020 12:00:00 AM EST Current Smoker completed Curre nt Smoker eCW1 ([facility]) Smoking 09/01/2020 12:00:00 AM EST Current Smoker completed Curre nt Smoker eCW1 ([facility]) Smoking 07/18/2020 12:00:00 AM EST Current Smoker completed Curre nt Smoker eCW1 ([facility]) Smoking 07/18/2020 12:00:00 AM EST Current Smoker completed Curre nt Smoker eCW1 ([facility]) Smoking 07/18/2020 12:00:00 AM EST Current Smoker completed Curre nt Smoker eCW1 ([facility]) Smoking 07/18/2020 12:00:00 AM EST Current Smoker completed Curre nt Smoker eCW1 ([facility]) Smoking 06/26/2020 12:00:00 AM EST Current Smoker completed Curre nt Smoker eCW1 ([facility]) Smoking 06/26/2020 12:00:00 AM EST Current Smoker completed Curre nt Smoker eCW1 ([facility]) Smoking 06/26/2020 12:00:00 AM EST Current Smoker completed Curre nt Smoker eCW1 ([facility]) Smoking 06/26/2020 12:00:00 AM EST Current Smoker completed Curre nt Smoker eCW1 ([facility]) Vital Signs ID Date Data Source UNK Name Value Range Interpretation Code Description Data Source(s) Body weight 160.2 [lb_av] 160.2 [lb_av] eCW1 ([facility]) Body height 62 [in_i] 62 [in_i] eCW1 (Counts include 234 beds at the [facility]) Body mass index (BMI) [Ratio] 29.30 kg/m2 29.30 kg/m2 eCW1 ([facility]) Heart rate 93 /min 93 /min eCW1 (Replaced by [facility]) Respiratory rate 18 /min 18 /min eCW1 ([facility]) Body temperature 98.2 [degF] 98.2 [degF] eCW1 ( [facility]) Systolic blood pressure 130 mm[Hg] 130 mm[Hg] e CW1 ([facility]) Diastolic blood pressure 70 mm[Hg] 70 mm[Hg] eCW1 ([facility]) Body weight 163.6 [lb_av] 163.6 [lb_av] eCW1 ([facility]) Body height 62 [in_i] 62 [in_i] eCW1 (Counts include 234 beds at the [facility]) Body mass index (BMI) [Ratio] 29.92 kg/m2 29.92 kg/m2 eCW1 ([facility]) Heart rate 98 /min 98 /min eCW1 (Replaced by [facility]) Respiratory rate 18 /min 18 /min eCW1 ([facility]) Body temperature 98.5 [degF] 98.5 [degF] eCW1 ( [facility]) Systolic blood pressure 126 mm[Hg] 126 mm[Hg] e CW1 ([facility]) Diastolic blood pressure 84 mm[Hg] 84 mm[Hg] eCW1 ([facility]) Body weight 157.2 [lb_av] 157.2 [lb_av] eCW1 ([facility]) Body height 62 [in_i] 62 [in_i] eCW1 (Counts include 234 beds at the [facility]) Body mass index (BMI) [Ratio] 28.75 kg/m2 28.75 kg/m2 eCW1 ([facility]) Heart rate 106 /min 106 /min eCW1 (Replaced by [facility]) Respiratory rate 18 /min 18 /min eCW1 ([facility]) Body temperature 97.9 [degF] 97.9 [degF] eCW1 ( [facility]) Systolic blood pressure 14 mm[Hg] 14 mm[Hg] e CW1 ([facility]) Diastolic blood pressure 90 mm[Hg] 90 mm[Hg] eCW1 ([facility]) Body weight 155 [lb_av] 155 [lb_av] eCW1 ([facility]) Body height 62 [in_i] 62 [in_i] eCW1 (Counts include 234 beds at the [facility]) Body mass index (BMI) [Ratio] 28.35 kg/m2 28.35 kg/m2 eCW1 ([facility]) Heart rate 80 /min 80 /min eCW1 (Replaced by [facility]) Respiratory rate 16 /min 16 /min eCW1 ([facility]) Body temperature 98.3 [degF] 98.3 [degF] eCW1 ( [facility]) Systolic blood pressure 132 mm[Hg] 132 mm[Hg] e CW1 ([facility]) Diastolic blood pressure 80 mm[Hg] 80 mm[Hg] eCW1 ([facility]) Body weight 146 [lb_av] 146 [lb_av] eCW1 ([facility]) Body height 62 [in_i] 62 [in_i] eCW1 (Counts include 234 beds at the [facility]) Body mass index (BMI) [Ratio] 26.70 kg/m2 26.70 kg/m2 eCW1 ([facility]) Heart rate 84 /min 84 /min eCW1 (Replaced by [facility]) Respiratory rate 18 /min 18 /min eCW1 ([facility]) Body temperature 98.7 [degF] 98.7 [degF] eCW1 ( [facility]) Systolic blood pressure 130 mm[Hg] 130 mm[Hg] e CW1 ([facility]) Diastolic blood pressure 82 mm[Hg] 82 mm[Hg] eCW1 ([facility]) Body weight 154.4 [lb_av] 154.4 [lb_av] eCW1 ([facility]) Body height 62 [in_i] 62 [in_i] eCW1 (Counts include 234 beds at the [facility]) Body mass index (BMI) [Ratio] 28.24 kg/m2 28.24 kg/m2 eCW1 ([facility]) Heart rate 94 /min 94 /min eCW1 (Replaced by [facility]) Respiratory rate 17 /min 17 /min eCW1 ([facility]) Body temperature 97.3 [degF] 97.3 [degF] eCW1 ( [facility]) Systolic blood pressure 124 mm[Hg] 124 mm[Hg] e CW1 ([facility]) Diastolic blood pressure 84 mm[Hg] 84 mm[Hg] eCW1 ([facility]) Diastolic blood pressure 86 mm[Hg] 86 mm[Hg] eCW1 ([facility]) Systolic blood pressure 130 mm[Hg] 130 mm[Hg] e CW1 ([facility]) Body temperature 97.7 [degF] 97.7 [degF] eCW1 ( [facility]) Respiratory rate 17 /min 17 /min eCW1 ([facility]) Heart rate 102 /min 102 /min eCW1 (Replaced by [facility]) Body mass index (BMI) [Ratio] 27.98 kg/m2 27.98 kg/m2 eCW1 ([facility]) Body height 62 [in_i] 62 [in_i] eCW1 (Counts include 234 beds at the [facility]) Body weight 153 [lb_av] 153 [lb_av] eCW1 ([facility]) Patient Treatment Plan of Care Planned Activity Planned Date Details Description Data Source (s) Acetaminophen 325 MG / Hydrocodone Bitartrate 7.5 MG O ral Tablet 04/16/2021 12:00:00 AM EDT eCW1 (Formerly [facility], later [facility]) Alprazolam 1 MG Oral Tablet 04/07/2021 12:00:00 AM EDT eCW1 ([facility]) Alprazolam 1 MG Oral Tablet 04/07/2021 12:00:00 AM EDT eCW1 ([facility]) Acetaminophen 325 MG / Hydrocodone Bitartrate 7.5 MG O ral Tablet 03/23/2021 12:00:00 AM EDT eCW1 (Formerly [facility], later [facility]) Acetaminophen 325 MG / Hydrocodone Bitartrate 7.5 MG O ral Tablet 03/23/2021 12:00:00 AM EDT eCW1 (Formerly [facility], later [facility]) Acetaminophen 325 MG / Hydrocodone Bitartrate 7.5 MG O ral Tablet 03/23/2021 12:00:00 AM EDT eCW1 (Formerly [facility], later [facility]) Acetaminophen 325 MG / Hydrocodone Bitartrate 7.5 MG O ral Tablet 03/23/2021 12:00:00 AM EDT eCW1 ([facility]ly [facility], [facility]) Alprazolam 1 MG Oral Tablet 03/13/2021 12:00:00 AM EDT eCW1 ([facility]) Alprazolam 1 MG Oral Tablet 03/13/2021 12:00:00 AM EDT eCW1 ([facility]) Alprazolam 1 MG Oral Tablet 03/13/2021 12:00:00 AM EDT eCW1 ([facility]) Alprazolam 1 MG Oral Tablet 03/13/2021 12:00:00 AM EDT eCW1 ([facility]) Acetaminophen 325 MG / Hydrocodone Bitartrate 7.5 MG O ral Tablet 2021 12:00:00 AM EDT eCW1 ([facility] later [facility]) Acetaminophen 325 MG / Hydrocodone Bitartrate 7.5 MG O ral Tablet 2021 12:00:00 AM EDT eCW1 ([facility], [facility]) Alprazolam 1 MG Oral Tablet 02/13/2021 12:00:00 AM EDT eCW1 ([facility]) Alprazolam 1 MG Oral Tablet 02/13/2021 12:00:00 AM EDT eCW1 ([facility]) Alprazolam 1 MG Oral Tablet 02/13/2021 12:00:00 AM EDT eCW1 ([facility]) Alprazolam 1 MG Oral Tablet 02/13/2021 12:00:00 AM EDT eCW1 ([facility]) Alprazolam 1 MG Oral Tablet 02/13/2021 12:00:00 AM EDT eCW1 ([facility]) PARoxetine HCl 10 MG 02/06/2021 12:00:00 AM EDT eCW1 ([facility]) PARoxetine HCl 10 MG 02/06/2021 12:00:00 AM EDT eCW1 ([facility]) PARoxetine HCl 10 MG 02/06/2021 12:00:00 AM EDT eCW1 ([facility]) PARoxetine HCl 10 MG 02/06/2021 12:00:00 AM EDT eCW1 ([facility]) PARoxetine HCl 10 MG 02/06/2021 12:00:00 AM EDT eCW1 ([facility]) Acetaminophen 325 MG / Hydrocodone Bitartrate 7.5 MG O ral Tablet 01/23/2021 12:00:00 AM EDT eCW1 ([facility]) Acetaminophen 325 MG / Hydrocodone Bitartrate 7.5 MG O ral Tablet 12/28/2020 12:00:00 AM EDT eCW1 ([facility]) Acetaminophen 325 MG / Hydrocodone Bitartrate 7.5 MG O ral Tablet 12/28/2020 12:00:00 AM EDT eCW1 ([facility]) Acetaminophen 325 MG / Hydrocodone Bitartrate 7.5 MG O ral Tablet 11/30/2020 12:00:00 AM EDT eCW1 ([facility]) Acetaminophen 325 MG / Hydrocodone Bitartrate 7.5 MG O ral Tablet 11/30/2020 12:00:00 AM EDT eCW1 ([facility]) Acetaminophen 325 MG / Hydrocodone Bitartrate 7.5 MG O ral Tablet 11/30/2020 12:00:00 AM EDT eCW1 ([facility]) Acetaminophen 325 MG / Hydrocodone Bitartrate 7.5 MG O ral Tablet 10/31/2020 12:00:00 AM EDT eCW1 ([facility]) Acetaminophen 325 MG / Hydrocodone Bitartrate 7.5 MG O ral Tablet 10/31/2020 12:00:00 AM EDT eCW1 ([facility]) Acetaminophen 325 MG / Hydrocodone Bitartrate 7.5 MG O ral Tablet 10/31/2020 12:00:00 AM EDT eCW1 ([facility]) Acetaminophen 325 MG / Hydrocodone Bitartrate 7.5 MG O ral Tablet 10/31/2020 12:00:00 AM EDT eCW1 ([facility]) Acetaminophen 325 MG / Hydrocodone Bitartrate 7.5 MG O ral Tablet 10/31/2020 12:00:00 AM EDT eCW1 ([facility]) Lisinopril 5 MG Oral Tablet 10/25/2020 12:00:00 AM EDT eCW1 ([facility]) Lisinopril 5 MG Oral Tablet 10/25/2020 12:00:00 AM EDT eCW1 ([facility]) Lisinopril 5 MG Oral Tablet 10/25/2020 12:00:00 AM EDT eCW1 ([facility]) Lisinopril 5 MG Oral Tablet 10/25/2020 12:00:00 AM EDT eCW1 ([facility]) Lisinopril 5 MG Oral Tablet 10/25/2020 12:00:00 AM EDT eCW1 ([facility]) Lisinopril 5 MG Oral Tablet 10/25/2020 12:00:00 AM EDT eCW1 ([facility]) Lisinopril 5 MG Oral Tablet 10/25/2020 12:00:00 AM EDT eCW1 ([facility]) Acetaminophen 325 MG / Hydrocodone Bitartrate 7.5 MG O ral Tablet 10/05/2020 12:00:00 AM EDT eCW1 ([facility]) Acetaminophen 325 MG / Hydrocodone Bitartrate 7.5 MG O ral Tablet 10/05/2020 12:00:00 AM EDT eCW1 ([facility]) Acetaminophen 325 MG / Hydrocodone Bitartrate 7.5 MG O ral Tablet 10/05/2020 12:00:00 AM EDT eCW1 ([facility]) Acetaminophen 325 MG / Hydrocodone Bitartrate 7.5 MG O ral Tablet 10/05/2020 12:00:00 AM EDT eCW1 ([facility]) Acetaminophen 325 MG / Hydrocodone Bitartrate 7.5 MG O ral Tablet 10/05/2020 12:00:00 AM EDT eCW1 ([facility]) Acetaminophen 325 MG / Hydrocodone Bitartrate 7.5 MG O ral Tablet 10/05/2020 12:00:00 AM EDT eCW1 ([facility]) Acetaminophen 325 MG / Hydrocodone Bitartrate 7.5 MG O ral Tablet 09/07/2020 12:00:00 AM EST eCW1 ([facility]) Acetaminophen 325 MG / Hydrocodone Bitartrate 7.5 MG O ral Tablet 09/07/2020 12:00:00 AM EST eCW1 ([facility]) Acetaminophen 325 MG / Hydrocodone Bitartrate 7.5 MG O ral Tablet 09/07/2020 12:00:00 AM EST eCW1 ([facility]) BD Pen Needle Mini U/F 31G X 5 MM 09/01/2020 12:00:00 AM EST eCW1 ([facility]) Basaglar KwikPen 100 UNIT/ML 09/01/2020 12:00:00 AM EST eCW1 ([facility]) Basaglar KwikPen 100 UNIT/ML 09/01/2020 12:00:00 AM EST eCW1 ([facility]) BD Pen Needle Mini U/F 31G X 5 MM 09/01/2020 12:00:00 AM EST eCW1 ([facility]) Basaglar KwikPen 100 UNIT/ML 09/01/2020 12:00:00 AM EST eCW1 ([facility]) BD Pen Needle Mini U/F 31G X 5 MM 09/01/2020 12:00:00 AM EST eCW1 ([facility]) Basaglar KwikPen 100 UNIT/ML 09/01/2020 12:00:00 AM EST eCW1 ([facility]) BD Pen Needle Mini U/F 31G X 5 MM 09/01/2020 12:00:00 AM EST eCW1 ([facility]) Basaglar KwikPen 100 UNIT/ML 09/01/2020 12:00:00 AM EST eCW1 ([facility]) BD Pen Needle Mini U/F 31G X 5 MM 09/01/2020 12:00:00 AM EST eCW1 ([facility]) BD Pen Needle Mini U/F 31G X 5 MM 09/01/2020 12:00:00 AM EST eCW1 ([facility]) Basaglar KwikPen 100 UNIT/ML 09/01/2020 12:00:00 AM EST eCW1 ([facility]) BD Pen Needle Mini U/F 31G X 5 MM 09/01/2020 12:00:00 AM EST eCW1 ([facility]) Basaglar KwikPen 100 UNIT/ML 09/01/2020 12:00:00 AM EST eCW1 ([facility]) BD Pen Needle Mini U/F 31G X 5 MM 09/01/2020 12:00:00 AM EST eCW1 ([facility]) Fluconazole 150 MG Oral Tablet 09/01/2020 12:00:00 AM EST eCW1 ([facility]) Basaglar KwikPen 100 UNIT/ML 09/01/2020 12:00:00 AM EST eCW1 ([facility]) BD Pen Needle Mini U/F 31G X 5 MM 09/01/2020 12:00:00 AM EST eCW1 ([facility]) Fluconazole 150 MG Oral Tablet 09/01/2020 12:00:00 AM EST eCW1 ([facility]) Basaglar KwikPen 100 UNIT/ML 09/01/2020 12:00:00 AM EST eCW1 ([facility]) BD Pen Needle Mini U/F 31G X 5 MM 09/01/2020 12:00:00 AM EST eCW1 ([facility]) Fluconazole 150 MG Oral Tablet 09/01/2020 12:00:00 AM EST eCW1 ([facility]) Basaglar KwikPen 100 UNIT/ML 09/01/2020 12:00:00 AM EST eCW1 ([facility]) Acetaminophen 325 MG / Hydrocodone Bitartrate 7.5 MG O ral Tablet 08/06/2020 12:00:00 AM EST eCW1 ([facility]) Acetaminophen 325 MG / Hydrocodone Bitartrate 7.5 MG O ral Tablet 08/06/2020 12:00:00 AM EST eCW1 ([facility]) Acetaminophen 325 MG / Hydrocodone Bitartrate 7.5 MG O ral Tablet 08/06/2020 12:00:00 AM EST eCW1 ([facility]) pioglitazone 15 MG Oral Tablet 07/18/2020 12:00:00 AM EST eCW1 ([facility]) Fluconazole 150 MG Oral Tablet 07/18/2020 12:00:00 AM EST eCW1 ([facility]) pioglitazone 15 MG Oral Tablet 07/18/2020 12:00:00 AM EST eCW1 ([facility]) Fluconazole 150 MG Oral Tablet 07/18/2020 12:00:00 AM EST eCW1 ([facility]) Fluconazole 150 MG Oral Tablet 07/18/2020 12:00:00 AM EST eCW1 ([facility]) pioglitazone 15 MG Oral Tablet 07/18/2020 12:00:00 AM EST eCW1 ([facility]) pioglitazone 15 MG Oral Tablet 07/18/2020 12:00:00 AM EST eCW1 ([facility]) Fluconazole 150 MG Oral Tablet 07/18/2020 12:00:00 AM EST eCW1 ([facility]) Acetaminophen 325 MG / Hydrocodone Bitartrate 7.5 MG O ral Tablet 07/07/2020 12:00:00 AM EST eCW1 ([facility]) Acetaminophen 325 MG / Hydrocodone Bitartrate 7.5 MG O ral Tablet 07/07/2020 12:00:00 AM EST eCW1 ([facility]ly [facility]) 24 HR Metformin hydrochloride 500 MG Extended Release Oral Tablet 06/26/2020 12:00:00 AM EST eCW1 ([facility]) 24 HR Metformin hydrochloride 500 MG Extended Release Oral Tablet 06/26/2020 12:00:00 AM EST eCW1 ([facility]) 24 HR Metformin hydrochloride 500 MG Extended Release Oral Tablet 06/26/2020 12:00:00 AM EST eCW1 ([facility]) 24 HR Metformin hydrochloride 500 MG Extended Release Oral Tablet 06/26/2020 12:00:00 AM EST eCW1 ([facility]ly [facility])
[2021-04-23] MEDS ORDERED: BASA100I IM (15:59)
[2021-04-23] MEDS ORDERED: ONDANSETRON 4MG/2ML VIAL IV ONE (16:25)
[2021-04-23] MEDS ORDERED: NS 1,000 ML IV ONE ×2 (16:25→18:50)
[2021-04-23] MEDS ORDERED: LORazepam 2 MG/ML VIAL IV STA (16:32)
[2021-04-23] MEDS ORDERED: KETOROLAC 30 MG/ML 1ML VIAL IV ONE (16:35)
[2021-04-23 17:19] LABS: BASO # 0.1 10^3/uL (0.0-0.2); BASO % 0.5 % (0.0-1.0); EOS # 0.1 10^3/uL (0.0-0.5); EOS % 0.5 % (0.0-3.0); HEMATOCRIT 48.5 % (36.0-47.0); HEMOGLOBIN 16.6 g/dl (12.0-15.5); LYMPH # 2.1 10^3/uL (1.5-5.0); LYMPH % 10.1 % (24.0-44.0); MEAN CORPUSCULAR HEMOGLOBIN 29.1 pg (27.0-33.0); MEAN CORPUSCULAR HGB CONC 34.2 g/dl (32.0-36.5); MEAN CORPUSCULAR VOLUME 85.1 fl (80.0-96.0); MONO # 0.6 10^3/uL (0.0-0.8); MONO % 3.1 % (2.0-8.0); NEUTROPHILS # 17.9 10^3/uL (1.5-8.5); NEUTROPHILS % 85.4 % (36.0-66.0); PLATELET COUNT, AUTOMATED 425 10^3/uL (150-450)
[2021-04-23 17:38] LABS: AMPHETAMINES LEVEL URINE NEGATIVE (NEGATIVE); BARBITURATES URINE NEGATIVE (NEGATIVE); BENZODIAZEPINES URINE NEGATIVE (NEGATIVE); CANNABINOIDS URINE POSITIVE (NEGATIVE); COCAINE METABOLITE URINE NEGATIVE (NEGATIVE); METHADONE URINE NEGATIVE (NEGATIVE); OPIATES URINE POSITIVE (NEGATIVE); PHENCYCLIDINE URINE NEGATIVE (NEGATIVE)
[2021-04-23 17:41] LABS: ALBUMIN 4.8 GM/DL (3.2-5.2); BILIRUBIN,DIRECT 0.2 MG/DL (0.0-0.2); TOTAL PROTEIN 8.4 GM/DL (6.4-8.2)
[2021-04-23] MEDS ORDERED: ISOVUE-370 76% 100ML VIAL As Ordered ONE (18:03)
--- OUTSIDE RECORDS SUMMARY | 2021-04-23 18:09 | CCD ---
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 Name Role Phone Edenilson Hopper MD Unavailable [...] Unavailable Unavailable Edenilson Hopper MD Unavailable Unavailable Edenilosn Hopper MD Unavailable Unavailable Ruchi, Edenilson Walters MD Unavailable Unavailable Ruchi, Edenilson Walters MD Unavailable Unavailable Madison, Edenilson Walters MD Unavailable Unavailable Ruchi, Edenilson Walters MD Unavailable Unavailable Ruchi, Edenilson Walters MD Unavailable Unavailable Madison, Edenilson Walters MD Unavailable Unavailable Ruchi, Edenilson Walters MD Unavailable Unavailable Madison, Edenilson Walters MD Unavailable Unavailable Madison, Edenilson Walters MD Unavailable Unavailable Madison, Edenilson Walters MD Unavailable Unavailable Ruchi, Edenilson Walters MD Unavailable Unavailable Madison, Edenilson Walters MD Unavailable Unavailable Madison, Edenilson Walters MD Unavailable Unavailable Ruchi, Edenilson Walters MD Unavailable Unavailable Ruchi, Edenilson Walters MD Unavailable Unavailable Madison, Edenilson Walters MD Unavailable Unavailable Ruchi, Edenilson Walters MD Unavailable Unavailable Madison, Edenilson Walters MD Unavailable Unavailable Ruchi, Edenilson Walters MD Unavailable Unavailable Madison, Edenilson Walters MD Unavailable Unavailable Juan Alberto, C Nicholas PA Unavailable Unavailable [place], C Nicholas PA Unavailable Unavailable [place], C Nicholas PA Unavailable Unavailable Juan Alberto, C Nicholas PA Unavailable Unavailable [place], C Nicholas PA Unavailable Unavailable [place], C Nicholas PA Unavailable Unavailable [place], C Nicholas PA Unavailable Unavailable [place], C Nicholas PA Unavailable Unavailable [place], C Nicholas PA Unavailable Unavailable [place], C Nicholas PA Unavailable Unavailable Juan Alberto, C Nicholas PA Unavailable Unavailable [place], C Nicholas PA Unavailable Unavailable Juan Alberto, C Nicholas PA Unavailable Unavailable Juan Alberto, C Nicholas PA Unavailable Unavailable [place], C Nicholas PA Unavailable Unavailable Isaiah Navarrete [...] is protected by Article 27-F of the [facility] Public Health law. If you continue you may have access to information: Regarding HIV / AIDS; Provided by facilities licensed or operated by the [facility] Office of Mental Health; or Provided by the [facility] Office for People With Developmental Disabilities. If such information is present, then the following [facility] mandated warning applies: This information has [...] law may result in a fine or chcf sentence or both. A general authorization for the release of medical or other information is NOT sufficient authorization for further disc losure. Encounters Encounter Providers Location Date Indications Data Source(s ) Unknown [address] [facility] [place] [address] 04/15/2021 12:00:00 AM EDT eCW1 ([facility]) Outpatient Attender: Nicholas GONCALVES 2020 02:44:56 PM EDT - 04/13/2021 04:33:42 PM EDT DocuTap ([facility] ) Unknown [address] [facility] [place] [address] 04/07/2021 12:00:00 AM EDT eCW1 ([facility]) Unknown [address] [facility] [place] [address] 03/25/2021 12:00:00 AM EDT eCW1 ([facility]) Unknown [address] [facility] [place] [address] 03/24/2021 12:00:00 AM EDT eCW1 ([facility]) Unknown [address] [facility] [place] [address] 03/17/2021 12:00:00 AM EDT eCW1 ([facility]) Unknown [address] [facility] [place] [address] 03/10/2021 12:00:00 AM EDT eCW1 ([facility]) Unknown [address] [facility] [place] [address] 02/19/2021 12:00:00 AM EDT eCW1 ([facility]) Unknown [address] [facility] [place] [address] 02/13/2021 12:00:00 AM EDT eCW1 ([facility]) Unknown [address] [facility] [place] [address] 02/13/2021 12:00:00 AM EDT eCW1 ([facility]) Unknown [address] [facility] [place] [address] 02/09/2021 12:00:00 AM EDT eCW1 ([facility]) Outpatient [address] [facility] [place] [address] 02/06/2021 12:00:00 AM EDT eCW1 ([facility]) Unknown [address] [facility] [place] [address] 01/20/2021 12:00:00 AM EDT eCW1 ([facility]) Unknown [address] [facility] [place] [address] 01/14/2021 12:00:00 AM EDT eCW1 ([facility]) Unknown [address] [facility] [place] [address] 12/25/2020 12:00:00 AM EDT eCW1 ([facility]) Unknown [address] [facility] [place] [address] 12/15/2020 12:00:00 AM EDT eCW1 ([facility]) Unknown [address] [facility] [place] [address] 11/27/2020 12:00:00 AM EDT eCW1 ([facility]) Outpatient [address] [facility] [place] [address] 11/24/2020 12:00:00 AM EDT eCW1 ([facility]) Unknown [address] [facility] [place] [address] 11/24/2020 12:00:00 AM EDT eCW1 ([facility]) Unknown [address] [facility] [place] [address] 11/18/2020 12:00:00 AM EDT eCW1 ([facility]) Unknown [address] [facility] [place] [address] 10/30/2020 12:00:00 AM EDT [facility]CW1 ([facility]) [place] [address] [facility] [place] [address] 10/30/2020 12:00:00 AM EDT eCW1 ([facility]) Unknown [address] [facility] [place] [address] 10/27/2020 12:00:00 AM EDT eCW1 ([facility]) Unknown [address] [facility] [place] [address] 10/26/2020 12:00:00 AM EDT eCW1 ([facility]) Unknown [address] [facility] [place] [address] 10/25/2020 12:00:00 AM EDT [facility]CW1 [facility]patient [address] [facility] [place] [address] 10/24/2020 12:00:00 AM EDT eCW1 ([facility]) Unknown [address] [facility] [place] [address] 10/22/2020 12:00:00 AM EDT eCW1 [facility] Emergency Attender: Isaiah Navarrete MDConsultant: Romeo Hopper MD 10/19/2020 06:44:00 PM EDT - 10/19/2020 10:15:00 PM EDT [facility] Patient discharged. Unknown [address] [facility] [place] [address] 10/19/2020 12:00:00 AM EDT eCW1 ([facility]) Unknown [address] [facility] [place] [address] 10/02/2020 12:00:00 AM EDT eCW1 ([facility]) Outpatient [address] [facility] [place] [address] 09/24/2020 12:00:00 AM EDT eCW1 ([facility]) Unknown [address] [facility] [place] [address] 09/19/2020 12:00:00 AM EST eCW1 ([facility]) Unknown [address] [facility] [place] [address] 09/08/2020 12:00:00 AM EST eCW1 ([facility]) Unknown [address] [facility] [place] [address] 09/04/2020 12:00:00 AM EST eCW1 ([facility]) Outpatient [address] [facility] [place] [address] 09/01/2020 12:00:00 AM EST eCW1 ([facility]) Unknown [address] [facility] [place] [address] 08/26/2020 12:00:00 AM EST eCW1 ([facility]) Unknown [address] [facility] [place] [address] 08/21/2020 12:00:00 AM EST eCW1 ([facility]) Unknown [address] [facility] [place] [address] 08/05/2020 12:00:00 AM EST eCW1 ([facility]) Unknown [address] [facility] [place] [address] 07/24/2020 12:00:00 AM EST eCW1 ([facility]) Outpatient [address] [facility] [place] [address] 07/18/2020 12:00:00 AM EST eCW1 ([facility]) Unknown [address] [facility] [place] [address] 07/08/2020 12:00:00 AM EST eCW1 ([facility]) Unknown [address] [facility] [place] [address] 07/07/2020 12:00:00 AM EST eCW1 ([facility]) Unknown [address] [facility] [place] [address] 07/01/2020 12:00:00 AM EST eCW1 ([facility]) Outpatient [address] [facility] [place] [address] 06/26/2020 12:00:00 AM EST eCW1 ([facility]) Outpatient [facility] 05/13/2020 10:00:00 AM EST [facility] Outpatient [facility] 05/13/2020 09:51:01 AM EST [facility] Outpatient [facility] 05/13/2020 09:49:00 AM EST [facility] Outpatient [facility] 05/13/2020 09:48:00 AM EST [facility] Outpatient ALL 05/13/2020 08:54:00 AM EST [facility] Outpatient ALL 05/13/2020 08:54:00 AM [facility] Medications Medication Brand Name Start Date Product Form Dose Route Admi nistrative Instructions Pharmacy Instructions Status Indications Reaction Description Data Source(s) Acetaminophen 325 MG / Hydrocodone Ju trate 7.5 MG Oral Tablet HYDROcodone- Acetaminophen 7.5-325 MG HYDROcodone-Acetaminophen 7.5-325 MG 04/16/2021 12:00:00 AM EDT 1.0 {tablet_as_needed} active HYDROcodone- Acetaminophen 7.5-325 MG eCW1 ([facility]) Alprazolam 1 MG Oral Tablet ALPRAZolam 1 MG ALPRAZolam 1 MG 04/07/2021 12:00:00 AM EDT 1.0 {tablet} active ALPRAZolam 1 MG eCW1 ([facility]) Alprazolam 1 MG Oral Tablet ALPRAZolam 1 MG ALPRAZolam 1 MG 04/07/2021 12:00:00 AM EDT 1.0 {tablet} active ALPRAZolam 1 MG eCW1 ([facility]) Acetaminophen 325 MG / Hydrocodone Ju trate 7.5 MG Oral Tablet HYDROcodone- Acetaminophen 7.5-325 MG HYDROcodone-Acetaminophen 7.5-325 MG 03/23/2021 12:00:00 AM EDT 1.0 {tablet_as_needed} active HYDROcodone- Acetaminophen 7.5-325 MG eCW1 ([facility]) Acetaminophen 325 MG / Hydrocodone Ju trate 7.5 MG Oral Tablet HYDROcodone- Acetaminophen 7.5-325 MG HYDROcodone-Acetaminophen 7.5-325 MG 03/23/2021 12:00:00 AM EDT 1.0 {tablet_as_needed} active HYDROcodone- Acetaminophen 7.5-325 MG eCW1 ([facility]) Acetaminophen 325 MG / Hydrocodone Ju trate 7.5 MG Oral Tablet HYDROcodone- Acetaminophen 7.5-325 MG HYDROcodone-Acetaminophen 7.5-325 MG 03/23/2021 12:00:00 AM EDT 1.0 {tablet_as_needed} active HYDROcodone- Acetaminophen 7.5-325 MG eCW1 ([facility]) Acetaminophen 325 MG / Hydrocodone Ju trate 7.5 MG Oral Tablet HYDROcodone- Acetaminophen 7.5-325 MG HYDROcodone-Acetaminophen 7.5-325 MG 03/23/2021 12:00:00 AM EDT 1.0 {tablet_as_needed} active HYDROcodone- Acetaminophen 7.5-325 MG eCW1 ([facility]) Alprazolam 1 MG Oral Tablet ALPRAZolam 1 MG ALPRAZolam 1 MG 03/13/2021 12:00:00 AM EDT 1.0 {tablet} active ALPRAZolam 1 MG eCW1 ([facility]) Alprazolam 1 MG Oral Tablet ALPRAZolam 1 MG ALPRAZolam 1 MG 03/13/2021 12:00:00 AM EDT 1.0 {tablet} active ALPRAZolam 1 MG eCW1 ([facility]) Alprazolam 1 MG Oral Tablet ALPRAZolam 1 MG ALPRAZolam 1 MG 03/13/2021 12:00:00 AM EDT 1.0 {tablet} active ALPRAZolam 1 MG eCW1 ([facility]) Alprazolam 1 MG Oral Tablet ALPRAZolam 1 MG ALPRAZolam 1 MG 03/13/2021 12:00:00 AM EDT 1.0 {tablet} active ALPRAZolam 1 MG eCW1 ([facility]) Acetaminophen 325 MG / Hydrocodone Ju trate 7.5 MG Oral Tablet HYDROcodone- Acetaminophen 7.5-325 MG HYDROcodone-Acetaminophen 7.5-325 MG 2021 12:00:00 AM EDT 1.0 {tablet_as_needed} active HYDROcodone- Acetaminophen 7.5-325 MG eCW1 ([facility]) Acetaminophen 325 MG / Hydrocodone Ju trate 7.5 MG Oral Tablet HYDROcodone- Acetaminophen 7.5-325 MG HYDROcodone-Acetaminophen 7.5-325 MG 2021 12:00:00 AM EDT 1.0 {tablet_as_needed} active HYDROcodone- Acetaminophen 7.5-325 MG eCW1 ([facility]) Alprazolam 1 MG Oral Tablet ALPRAZolam 1 MG ALPRAZolam 1 MG 02/13/2021 12:00:00 AM EDT 1.0 {tablet} active ALPRAZolam 1 MG eCW1 ([facility]) Alprazolam 1 MG Oral Tablet ALPRAZolam 1 MG ALPRAZolam 1 MG 02/13/2021 12:00:00 AM EDT 1.0 {tablet} active ALPRAZolam 1 MG eCW1 ([facility]) Alprazolam 1 MG Oral Tablet ALPRAZolam 1 MG ALPRAZolam 1 MG 02/13/2021 12:00:00 AM EDT 1.0 {tablet} active ALPRAZolam 1 MG eCW1 ([facility]) Alprazolam 1 MG Oral Tablet ALPRAZolam 1 MG ALPRAZolam 1 MG 02/13/2021 12:00:00 AM EDT 1.0 {tablet} active ALPRAZolam 1 MG eCW1 ([facility]) Alprazolam 1 MG Oral Tablet ALPRAZolam 1 MG ALPRAZolam 1 MG 02/13/2021 12:00:00 AM EDT 1.0 {tablet} active ALPRAZolam 1 MG eCW1 ([facility]) PARoxetine HCl 10 MG PARoxetine HCl 10 MG 02/06/2021 12:00:00 AM ED T 1.0 {tablet_in_the_morning} active PARoxeti ne HCl 10 MG eCW1 ([facility]) PARoxetine HCl 10 MG PARoxetine HCl 10 MG 02/06/2021 12:00:00 AM ED T 1.0 {tablet_in_the_morning} active PARoxeti ne HCl 10 MG eCW1 ([facility]) PARoxetine HCl 10 MG PARoxetine HCl 10 MG 02/06/2021 12:00:00 AM ED T 1.0 {tablet_in_the_morning} active PARoxeti ne HCl 10 MG eCW1 ([facility]) PARoxetine HCl 10 MG PARoxetine HCl 10 MG 02/06/2021 12:00:00 AM ED T 1.0 {tablet_in_the_morning} active PARoxeti ne HCl 10 MG eCW1 ([facility]) PARoxetine HCl 10 MG PARoxetine HCl 10 MG 02/06/2021 12:00:00 AM ED T 1.0 {tablet_in_the_morning} active PARoxeti ne HCl 10 MG eCW1 ([facility]) Acetaminophen 325 MG / Hydrocodone Ju trate 7.5 MG Oral Tablet HYDROcodone- Acetaminophen 7.5-325 MG HYDROcodone-Acetaminophen 7.5-325 MG 01/23/2021 12:00:00 AM EDT 1.0 {tablet_as_needed} active HYDROcodone- Acetaminophen 7.5-325 MG eCW1 ([facility]) Acetaminophen 325 MG / Hydrocodone Ju trate 7.5 MG Oral Tablet HYDROcodone- Acetaminophen 7.5-325 MG HYDROcodone-Acetaminophen 7.5-325 MG 01/23/2021 12:00:00 AM EDT 1.0 {tablet_as_needed} active HYDROcodone- Acetaminophen 7.5-325 MG eCW1 ([facility]) Acetaminophen 325 MG / Hydrocodone Ju trate 7.5 MG Oral Tablet HYDROcodone- Acetaminophen 7.5-325 MG HYDROcodone-Acetaminophen 7.5-325 MG 01/23/2021 12:00:00 AM EDT 1.0 {tablet_as_needed} active HYDROcodone- Acetaminophen 7.5-325 MG eCW1 ([facility]) Acetaminophen 325 MG / Hydrocodone Ju trate 7.5 MG Oral Tablet HYDROcodone- Acetaminophen 7.5-325 MG HYDROcodone-Acetaminophen 7.5-325 MG 01/23/2021 12:00:00 AM EDT 1.0 {tablet_as_needed} active HYDROcodone- Acetaminophen 7.5-325 MG eCW1 ([facility]) Acetaminophen 325 MG / Hydrocodone Ju trate 7.5 MG Oral Tablet HYDROcodone- Acetaminophen 7.5-325 MG HYDROcodone-Acetaminophen 7.5-325 MG 01/23/2021 12:00:00 AM EDT 1.0 {tablet_as_needed} active HYDROcodone- Acetaminophen 7.5-325 MG eCW1 ([facility]) Acetaminophen 325 MG / Hydrocodone Ju trate 7.5 MG Oral Tablet HYDROcodone- Acetaminophen 7.5-325 MG HYDROcodone-Acetaminophen 7.5-325 MG 12/28/2020 12:00:00 AM EDT 1.0 {tablet_as_needed} active HYDROcodone- Acetaminophen 7.5-325 MG eCW1 ([facility]) Acetaminophen 325 MG / Hydrocodone Ju trate 7.5 MG Oral Tablet HYDROcodone- Acetaminophen 7.5-325 MG HYDROcodone-Acetaminophen 7.5-325 MG 12/28/2020 12:00:00 AM EDT 1.0 {tablet_as_needed} active HYDROcodone- Acetaminophen 7.5-325 MG eCW1 ([facility]) Acetaminophen 325 MG / Hydrocodone Ju trate 7.5 MG Oral Tablet Hydrocodone- Acetaminophen 7.5-325 MG Hydrocodone-Acetaminophen 7.5-325 MG 11/30/2020 12:00:00 AM EDT 1.0 {tablet_as_needed} active Hydrocodone- Acetaminophen 7.5-325 MG eCW1 ([facility]) Acetaminophen 325 MG / Hydrocodone Ju trate 7.5 MG Oral Tablet Hydrocodone- Acetaminophen 7.5-325 MG Hydrocodone-Acetaminophen 7.5-325 MG 11/30/2020 12:00:00 AM EDT 1.0 {tablet_as_needed} active Hydrocodone- Acetaminophen 7.5-325 MG eCW1 ([facility]) Acetaminophen 325 MG / Hydrocodone Ju trate 7.5 MG Oral Tablet Hydrocodone- Acetaminophen 7.5-325 MG Hydrocodone-Acetaminophen 7.5-325 MG 11/30/2020 12:00:00 AM EDT 1.0 {tablet_as_needed} active Hydrocodone- Acetaminophen 7.5-325 MG eCW1 ([facility]) Acetaminophen 325 MG / Hydrocodone Ju trate 7.5 MG Oral Tablet Hydrocodone- Acetaminophen 7.5-325 MG Hydrocodone-Acetaminophen 7.5-325 MG 10/31/2020 12:00:00 AM EDT 1.0 {tablet_as_needed} active Hydrocodone- Acetaminophen 7.5-325 MG eCW1 ([facility]) Acetaminophen 325 MG / Hydrocodone Ju trate 7.5 MG Oral Tablet Hydrocodone- Acetaminophen 7.5-325 MG Hydrocodone-Acetaminophen 7.5-325 MG 10/31/2020 12:00:00 AM EDT 1.0 {tablet_as_needed} active Hydrocodone- Acetaminophen 7.5-325 MG eCW1 ([facility]) Acetaminophen 325 MG / Hydrocodone Ju trate 7.5 MG Oral Tablet Hydrocodone- Acetaminophen 7.5-325 MG Hydrocodone-Acetaminophen 7.5-325 MG 10/31/2020 12:00:00 AM EDT 1.0 {tablet_as_needed} active Hydrocodone- Acetaminophen 7.5-325 MG eCW1 ([facility]) Acetaminophen 325 MG / Hydrocodone Ju trate 7.5 MG Oral Tablet Hydrocodone- Acetaminophen 7.5-325 MG Hydrocodone-Acetaminophen 7.5-325 MG 10/31/2020 12:00:00 AM EDT 1.0 {tablet_as_needed} active Hydrocodone- Acetaminophen 7.5-325 MG eCW1 ([facility]) Acetaminophen 325 MG / Hydrocodone Ju trate 7.5 MG Oral Tablet Hydrocodone- Acetaminophen 7.5-325 MG Hydrocodone-Acetaminophen 7.5-325 MG 10/31/2020 12:00:00 AM EDT 1.0 {tablet_as_needed} active Hydrocodone- Acetaminophen 7.5-325 MG eCW1 ([facility]) Acetaminophen 325 MG / Hydrocodone Ju trate 7.5 MG Oral Tablet Hydrocodone- Acetaminophen 7.5-325 MG Hydrocodone-Acetaminophen 7.5-325 MG 10/31/2020 12:00:00 AM EDT 1.0 {tablet_as_needed} active Hydrocodone- Acetaminophen 7.5-325 MG eCW1 ([facility]) Lisinopril 5 MG Oral Tablet Lisinopril 5 MG 10/25/2020 12:00:00 AM EDT 1.0 {tablet} active Lisinopril 5 MG eCW1 ([facility]) Lisinopril 5 MG Oral Tablet Lisinopril 5 MG 10/25/2020 12:00:00 AM EDT 1.0 {tablet} active Lisinopril 5 MG eCW1 ([facility]) Lisinopril 5 MG Oral Tablet Lisinopril 5 MG 10/25/2020 12:00:00 AM EDT 1.0 {tablet} active Lisinopril 5 MG eCW1 ([facility]) Lisinopril 5 MG Oral Tablet Lisinopril 5 MG 10/25/2020 12:00:00 AM EDT 1.0 {tablet} active Lisinopril 5 MG eCW1 ([facility]) Lisinopril 5 MG Oral Tablet Lisinopril 5 MG 10/25/2020 12:00:00 AM EDT 1.0 {tablet} active Lisinopril 5 MG eCW1 ([facility]) Lisinopril 5 MG Oral Tablet Lisinopril 5 MG 10/25/2020 12:00:00 AM EDT 1.0 {tablet} active Lisinopril 5 MG eCW1 ([facility]) Lisinopril 5 MG Oral Tablet Lisinopril 5 MG 10/25/2020 12:00:00 AM EDT 1.0 {tablet} active Lisinopril 5 MG eCW1 ([facility]) Lisinopril 5 MG Oral Tablet Lisinopril 5 MG 10/25/2020 12:00:00 AM EDT 1.0 {tablet} active Lisinopril 5 MG eCW1 ([facility]) Acetaminophen 325 MG / Hydrocodone Ju trate 7.5 MG Oral Tablet Hydrocodone- Acetaminophen 7.5-325 MG Hydrocodone-Acetaminophen 7.5-325 MG 10/05/2020 12:00:00 AM EDT 1.0 {tablet_as_needed} active Hydrocodone- Acetaminophen 7.5-325 MG eCW1 ([facility]) Acetaminophen 325 MG / Hydrocodone Ju trate 7.5 MG Oral Tablet Hydrocodone- Acetaminophen 7.5-325 MG Hydrocodone-Acetaminophen 7.5-325 MG 10/05/2020 12:00:00 AM EDT 1.0 {tablet_as_needed} active Hydrocodone- Acetaminophen 7.5-325 MG eCW1 ([facility]) Acetaminophen 325 MG / Hydrocodone Ju trate 7.5 MG Oral Tablet Hydrocodone- Acetaminophen 7.5-325 MG Hydrocodone-Acetaminophen 7.5-325 MG 10/05/2020 12:00:00 AM EDT 1.0 {tablet_as_needed} active Hydrocodone- Acetaminophen 7.5-325 MG eCW1 ([facility]) Acetaminophen 325 MG / Hydrocodone Ju trate 7.5 MG Oral Tablet Hydrocodone- Acetaminophen 7.5-325 MG Hydrocodone-Acetaminophen 7.5-325 MG 10/05/2020 12:00:00 AM EDT 1.0 {tablet_as_needed} active Hydrocodone- Acetaminophen 7.5-325 MG eCW1 ([facility]) Acetaminophen 325 MG / Hydrocodone Ju trate 7.5 MG Oral Tablet Hydrocodone- Acetaminophen 7.5-325 MG Hydrocodone-Acetaminophen 7.5-325 MG 10/05/2020 12:00:00 AM EDT 1.0 {tablet_as_needed} active Hydrocodone- Acetaminophen 7.5-325 MG eCW1 ([facility]) Acetaminophen 325 MG / Hydrocodone Ju trate 7.5 MG Oral Tablet Hydrocodone- Acetaminophen 7.5-325 MG Hydrocodone-Acetaminophen 7.5-325 MG 10/05/2020 12:00:00 AM EDT 1.0 {tablet_as_needed} active Hydrocodone- Acetaminophen 7.5-325 MG eCW1 ([facility]) Acetaminophen 325 MG / Hydrocodone Ju trate 7.5 MG Oral Tablet Hydrocodone- Acetaminophen 7.5-325 MG Hydrocodone-Acetaminophen 7.5-325 MG 09/07/2020 12:00:00 AM EST 1.0 {tablet_as_needed} active Hydrocodone- Acetaminophen 7.5-325 MG eCW1 ([facility]) Acetaminophen 325 MG / Hydrocodone Ju trate 7.5 MG Oral Tablet Hydrocodone- Acetaminophen 7.5-325 MG Hydrocodone-Acetaminophen 7.5-325 MG 09/07/2020 12:00:00 AM EST 1.0 {tablet_as_needed} active Hydrocodone- Acetaminophen 7.5-325 MG eCW1 ([facility]) Acetaminophen 325 MG / Hydrocodone Ju trate 7.5 MG Oral Tablet Hydrocodone- Acetaminophen 7.5-325 MG Hydrocodone-Acetaminophen 7.5-325 MG 09/07/2020 12:00:00 AM EST 1.0 {tablet_as_needed} active Hydrocodone- Acetaminophen 7.5-325 MG eCW1 ([facility]) Acetaminophen 325 MG / Hydrocodone Ju trate 7.5 MG Oral Tablet Hydrocodone- Acetaminophen 7.5-325 MG Hydrocodone-Acetaminophen 7.5-325 MG 09/07/2020 12:00:00 AM EST 1.0 {tablet_as_needed} active Hydrocodone- Acetaminophen 7.5-325 MG eCW1 ([facility]) Acetaminophen 325 MG / Hydrocodone Ju trate 7.5 MG Oral Tablet Hydrocodone- Acetaminophen 7.5-325 MG Hydrocodone-Acetaminophen 7.5-325 MG 09/07/2020 12:00:00 AM EST 1.0 {tablet_as_needed} active Hydrocodone- Acetaminophen 7.5-325 MG eCW1 ([facility]) BD Pen Needle Mini U/F 31G X 5 MM BD Pen Needle Mini U/F 31G X 5 MM 09/01/2020 12:00:00 AM EST active BD Pen N eedle Mini U/F 31G X 5 MM eCW1 ([facility]) Basaglar KwikPen 100 UNIT/ML Basaglar KwikPen 100 UNIT/ML 12:00:00 AM EST active Basaglar KwikPen 100 UNIT/ML eCW1 ([facility]) Basaglar KwikPen 100 UNIT/ML Basaglar KwikPen 100 UNIT/ML 12:00:00 AM EST active Basaglar KwikPen 100 UNIT/ML eCW1 ([facility]) BD Pen Needle Mini U/F 31G X 5 MM BD Pen Needle Mini U/F 31G X 5 MM 09/01/2020 12:00:00 AM EST active BD Pen N eedle Mini U/F 31G X 5 MM eCW1 ([facility]) Fluconazole 150 MG Oral Tablet Fluconazole 150 MG 09/01/2020 12:00: 00 AM EST 1.0 {tablet} suspended Fluconazole 150 M G eCW1 ([facility]) Basaglar KwikPen 100 UNIT/ML Basaglar KwikPen 100 UNIT/ML 12:00:00 AM EST active Basaglar KwikPen 100 UNIT/ML eCW1 ([facility]) Fluconazole 150 MG Oral Tablet Fluconazole 150 MG 09/01/2020 12:00: 00 AM EST 1.0 {tablet} suspended Fluconazole 150 M G eCW1 ([facility]) BD Pen Needle Mini U/F 31G X 5 MM BD Pen Needle Mini U/F 31G X 5 MM 09/01/2020 12:00:00 AM EST active BD Pen N eedle Mini U/F 31G X 5 MM eCW1 ([facility]) BD Pen Needle Mini U/F 31G X 5 MM BD Pen Needle Mini U/F 31G X 5 MM 09/01/2020 12:00:00 AM EST active BD Pen N eedle Mini U/F 31G X 5 MM eCW1 ([facility]) Fluconazole 150 MG Oral Tablet Fluconazole 150 MG 09/01/2020 12:00: 00 AM EST 1.0 {tablet} suspended Fluconazole 150 M G eCW1 ([facility]) Basaglar KwikPen 100 UNIT/ML Basaglar KwikPen 100 UNIT/ML 12:00:00 AM EST active Basaglar KwikPen 100 UNIT/ML eCW1 ([facility]) Fluconazole 150 MG Oral Tablet Fluconazole 150 MG 09/01/2020 12:00: 00 AM EST 1.0 {tablet} active Fluconazole 150 MG eCW1 ([facility]) Basaglar KwikPen 100 UNIT/ML Basaglar KwikPen 100 UNIT/ML 12:00:00 AM EST active Basaglar KwikPen 100 UNIT/ML eCW1 ([facility]) BD Pen Needle Mini U/F 31G X 5 MM BD Pen Needle Mini U/F 31G X 5 MM 09/01/2020 12:00:00 AM EST active BD Pen N eedle Mini U/F 31G X 5 MM eCW1 ([facility]) Basaglar KwikPen 100 UNIT/ML Basaglar KwikPen 100 UNIT/ML 12:00:00 AM EST active Basaglar KwikPen 100 UNIT/ML eCW1 ([facility]) Fluconazole 150 MG Oral Tablet Fluconazole 150 MG 09/01/2020 12:00: 00 AM EST 1.0 {tablet} suspended Fluconazole 150 M G eCW1 ([facility]) BD Pen Needle Mini U/F 31G X 5 MM BD Pen Needle Mini U/F 31G X 5 MM 09/01/2020 12:00:00 AM EST active BD Pen N eedle Mini U/F 31G X 5 MM eCW1 ([facility]) Basaglar KwikPen 100 UNIT/ML Basaglar KwikPen 100 UNIT/ML 12:00:00 AM EST active Basaglar KwikPen 100 UNIT/ML eCW1 ([facility]) BD Pen Needle Mini U/F 31G X 5 MM BD Pen Needle Mini U/F 31G X 5 MM 09/01/2020 12:00:00 AM EST active BD Pen N eedle Mini U/F 31G X 5 MM eCW1 ([facility]) Basaglar KwikPen 100 UNIT/ML Basaglar KwikPen 100 UNIT/ML 12:00:00 AM EST active Basaglar KwikPen 100 UNIT/ML eCW1 ([facility]) BD Pen Needle Mini U/F 31G X 5 MM BD Pen Needle Mini U/F 31G X 5 MM 09/01/2020 12:00:00 AM EST active BD Pen N eedle Mini U/F 31G X 5 MM eCW1 ([facility]) BD Pen Needle Mini U/F 31G X 5 MM BD Pen Needle Mini U/F 31G X 5 MM 09/01/2020 12:00:00 AM EST active BD Pen N eedle Mini U/F 31G X 5 MM eCW1 ([facility]) BD Pen Needle Mini U/F 31G X 5 MM BD Pen Needle Mini U/F 31G X 5 MM 09/01/2020 12:00:00 AM EST active BD Pen N eedle Mini U/F 31G X 5 MM eCW1 ([facility]) BD Pen Needle Mini U/F 31G X 5 MM BD Pen Needle Mini U/F 31G X 5 MM 09/01/2020 12:00:00 AM EST active BD Pen N eedle Mini U/F 31G X 5 MM eCW1 ([facility]) Fluconazole 150 MG Oral Tablet Fluconazole 150 MG 09/01/2020 12:00: 00 AM EST 1.0 {tablet} suspended Fluconazole 150 M G eCW1 ([facility]) Fluconazole 150 MG Oral Tablet Fluconazole 150 MG 09/01/2020 12:00: 00 AM EST 1.0 {tablet} suspended Fluconazole 150 M G eCW1 ([facility]) Basaglar KwikPen 100 UNIT/ML Basaglar KwikPen 100 UNIT/ML 12:00:00 AM EST active Basaglar KwikPen 100 UNIT/ML eCW1 ([facility]) Basaglar KwikPen 100 UNIT/ML Basaglar KwikPen 100 UNIT/ML 12:00:00 AM EST active Basaglar KwikPen 100 UNIT/ML eCW1 ([facility]) BD Pen Needle Mini U/F 31G X 5 MM BD Pen Needle Mini U/F 31G X 5 MM 09/01/2020 12:00:00 AM EST active BD Pen N eedle Mini U/F 31G X 5 MM eCW1 ([facility]) Fluconazole 150 MG Oral Tablet Fluconazole 150 MG 09/01/2020 12:00: 00 AM EST 1.0 {tablet} active Fluconazole 150 MG eCW1 ([facility]) BD Pen Needle Mini U/F 31G X 5 MM BD Pen Needle Mini U/F 31G X 5 MM 09/01/2020 12:00:00 AM EST active BD Pen N eedle Mini U/F 31G X 5 MM eCW1 ([facility]) Fluconazole 150 MG Oral Tablet Fluconazole 150 MG 09/01/2020 12:00: 00 AM EST 1.0 {tablet} suspended Fluconazole 150 M G eCW1 ([facility]) BD Pen Needle Mini U/F 31G X 5 MM BD Pen Needle Mini U/F 31G X 5 MM 09/01/2020 12:00:00 AM EST active BD Pen N eedle Mini U/F 31G X 5 MM eCW1 ([facility]) BD Pen Needle Mini U/F 31G X 5 MM BD Pen Needle Mini U/F 31G X 5 MM 09/01/2020 12:00:00 AM EST active BD Pen N eedle Mini U/F 31G X 5 MM eCW1 ([facility]) Fluconazole 150 MG Oral Tablet Fluconazole 150 MG 09/01/2020 12:00: 00 AM EST 1.0 {tablet} suspended Fluconazole 150 M G eCW1 ([facility]) Fluconazole 150 MG Oral Tablet Fluconazole 150 MG 09/01/2020 12:00: 00 AM EST 1.0 {tablet} suspended Fluconazole 150 M G eCW1 ([facility]) Basaglar KwikPen 100 UNIT/ML Basaglar KwikPen 100 UNIT/ML 12:00:00 AM EST active Basaglar KwikPen 100 UNIT/ML eCW1 ([facility]) Fluconazole 150 MG Oral Tablet Fluconazole 150 MG 09/01/2020 12:00: 00 AM EST 1.0 {tablet} active Fluconazole 150 MG eCW1 ([facility]) BD Pen Needle Mini U/F 31G X 5 MM BD Pen Needle Mini U/F 31G X 5 MM 09/01/2020 12:00:00 AM EST active BD Pen N eedle Mini U/F 31G X 5 MM eCW1 ([facility]) Basaglar KwikPen 100 UNIT/ML Basaglar KwikPen 100 UNIT/ML 12:00:00 AM EST active Basaglar KwikPen 100 UNIT/ML eCW1 ([facility]) BD Pen Needle Mini U/F 31G X 5 MM BD Pen Needle Mini U/F 31G X 5 MM 09/01/2020 12:00:00 AM EST active BD Pen N eedle Mini U/F 31G X 5 MM eCW1 ([facility]) BD Pen Needle Mini U/F 31G X 5 MM BD Pen Needle Mini U/F 31G X 5 MM 09/01/2020 12:00:00 AM EST active BD Pen N eedle Mini U/F 31G X 5 MM eCW1 ([facility]) Fluconazole 150 MG Oral Tablet Fluconazole 150 MG 09/01/2020 12:00: 00 AM EST 1.0 {tablet} suspended Fluconazole 150 M G eCW1 ([facility]) BD Pen Needle Mini U/F 31G X 5 MM BD Pen Needle Mini U/F 31G X 5 MM 09/01/2020 12:00:00 AM EST active BD Pen N eedle Mini U/F 31G X 5 MM eCW1 ([facility]) BD Pen Needle Mini U/F 31G X 5 MM BD Pen Needle Mini U/F 31G X 5 MM 09/01/2020 12:00:00 AM EST active BD Pen N eedle Mini U/F 31G X 5 MM eCW1 ([facility]) BD Pen Needle Mini U/F 31G X 5 MM BD Pen Needle Mini U/F 31G X 5 MM 09/01/2020 12:00:00 AM EST active BD Pen N eedle Mini U/F 31G X 5 MM eCW1 ([facility]) Basaglar KwikPen 100 UNIT/ML Basaglar KwikPen 100 UNIT/ML 12:00:00 AM EST active Basaglar KwikPen 100 UNIT/ML eCW1 ([facility]) Fluconazole 150 MG Oral Tablet Fluconazole 150 MG 09/01/2020 12:00: 00 AM EST 1.0 {tablet} suspended Fluconazole 150 M G eCW1 ([facility]) Fluconazole 150 MG Oral Tablet Fluconazole 150 MG 09/01/2020 12:00: 00 AM EST 1.0 {tablet} suspended Fluconazole 150 M G eCW1 ([facility]) Fluconazole 150 MG Oral Tablet Fluconazole 150 MG 09/01/2020 12:00: 00 AM EST 1.0 {tablet} suspended Fluconazole 150 M G eCW1 ([facility]) BD Pen Needle Mini U/F 31G X 5 MM BD Pen Needle Mini U/F 31G X 5 MM 09/01/2020 12:00:00 AM EST active BD Pen N eedle Mini U/F 31G X 5 MM eCW1 ([facility]) BD Pen Needle Mini U/F 31G X 5 MM BD Pen Needle Mini U/F 31G X 5 MM 09/01/2020 12:00:00 AM EST active BD Pen N eedle Mini U/F 31G X 5 MM eCW1 ([facility]) BD Pen Needle Mini U/F 31G X 5 MM BD Pen Needle Mini U/F 31G X 5 MM 09/01/2020 12:00:00 AM EST active BD Pen N eedle Mini U/F 31G X 5 MM eCW1 ([facility]) Fluconazole 150 MG Oral Tablet Fluconazole 150 MG 09/01/2020 12:00: 00 AM EST 1.0 {tablet} suspended Fluconazole 150 M G eCW1 ([facility]) Fluconazole 150 MG Oral Tablet Fluconazole 150 MG 09/01/2020 12:00: 00 AM EST 1.0 {tablet} suspended Fluconazole 150 M G eCW1 ([facility]) Fluconazole 150 MG Oral Tablet Fluconazole 150 MG 09/01/2020 12:00: 00 AM EST 1.0 {tablet} active Fluconazole 150 MG eCW1 ([facility]) Fluconazole 150 MG Oral Tablet Fluconazole 150 MG 09/01/2020 12:00: 00 AM EST 1.0 {tablet} suspended Fluconazole 150 M G eCW1 ([facility]) Basaglar KwikPen 100 UNIT/ML Basaglar KwikPen 100 UNIT/ML 12:00:00 AM EST active Basaglar KwikPen 100 UNIT/ML eCW1 ([facility]) Fluconazole 150 MG Oral Tablet Fluconazole 150 MG 09/01/2020 12:00: 00 AM EST 1.0 {tablet} suspended Fluconazole 150 M G eCW1 ([facility]) Fluconazole 150 MG Oral Tablet Fluconazole 150 MG 09/01/2020 12:00: 00 AM EST 1.0 {tablet} active Fluconazole 150 MG eCW1 ([facility]) Fluconazole 150 MG Oral Tablet Fluconazole 150 MG 09/01/2020 12:00: 00 AM EST 1.0 {tablet} suspended Fluconazole 150 M G eCW1 ([facility]) Fluconazole 150 MG Oral Tablet Fluconazole 150 MG 09/01/2020 12:00: 00 AM EST 1.0 {tablet} active Fluconazole 150 MG eCW1 ([facility]) BD Pen Needle Mini U/F 31G X 5 MM BD Pen Needle Mini U/F 31G X 5 MM 09/01/2020 12:00:00 AM EST active BD Pen N eedle Mini U/F 31G X 5 MM eCW1 ([facility]) BD Pen Needle Mini U/F 31G X 5 MM BD Pen Needle Mini U/F 31G X 5 MM 09/01/2020 12:00:00 AM EST active BD Pen N eedle Mini U/F 31G X 5 MM eCW1 ([facility]) Basaglar KwikPen 100 UNIT/ML Basaglar KwikPen 100 UNIT/ML 12:00:00 AM EST active Basaglar KwikPen 100 UNIT/ML eCW1 ([facility]) BD Pen Needle Mini U/F 31G X 5 MM BD Pen Needle Mini U/F 31G X 5 MM 09/01/2020 12:00:00 AM EST active BD Pen N eedle Mini U/F 31G X 5 MM eCW1 ([facility]) Basaglar KwikPen 100 UNIT/ML Basaglar KwikPen 100 UNIT/ML 12:00:00 AM EST active Basaglar KwikPen 100 UNIT/ML eCW1 ([facility]) Basaglar KwikPen 100 UNIT/ML Basaglar KwikPen 100 UNIT/ML 12:00:00 AM EST active Basaglar KwikPen 100 UNIT/ML eCW1 ([facility]) BD Pen Needle Mini U/F 31G X 5 MM BD Pen Needle Mini U/F 31G X 5 MM 09/01/2020 12:00:00 AM EST active BD Pen N eedle Mini U/F 31G X 5 MM eCW1 ([facility]) Fluconazole 150 MG Oral Tablet Fluconazole 150 MG 09/01/2020 12:00: 00 AM EST 1.0 {tablet} active Fluconazole 150 MG eCW1 ([facility]) Fluconazole 150 MG Oral Tablet Fluconazole 150 MG 09/01/2020 12:00: 00 AM EST 1.0 {tablet} suspended Fluconazole 150 M G eCW1 ([facility]) Fluconazole 150 MG Oral Tablet Fluconazole 150 MG 09/01/2020 12:00: 00 AM EST 1.0 {tablet} suspended Fluconazole 150 M G eCW1 ([facility]) Fluconazole 150 MG Oral Tablet Fluconazole 150 MG 09/01/2020 12:00: 00 AM EST 1.0 {tablet} active Fluconazole 150 MG eCW1 ([facility]) Fluconazole 150 MG Oral Tablet Fluconazole 150 MG 09/01/2020 12:00: 00 AM EST 1.0 {tablet} suspended Fluconazole 150 M G eCW1 ([facility]) Fluconazole 150 MG Oral Tablet Fluconazole 150 MG 09/01/2020 12:00: 00 AM EST 1.0 {tablet} suspended Fluconazole 150 M G eCW1 ([facility]) Basaglar KwikPen 100 UNIT/ML Basaglar KwikPen 100 UNIT/ML 12:00:00 AM EST active Basaglar KwikPen 100 UNIT/ML eCW1 ([facility]) Fluconazole 150 MG Oral Tablet Fluconazole 150 MG 09/01/2020 12:00: 00 AM EST 1.0 {tablet} suspended Fluconazole 150 M G eCW1 ([facility]) Fluconazole 150 MG Oral Tablet Fluconazole 150 MG 09/01/2020 12:00: 00 AM EST 1.0 {tablet} suspended Fluconazole 150 M G eCW1 ([facility]) Fluconazole 150 MG Oral Tablet Fluconazole 150 MG 09/01/2020 12:00: 00 AM EST 1.0 {tablet} active Fluconazole 150 MG eCW1 ([facility]) Fluconazole 150 MG Oral Tablet Fluconazole 150 MG 09/01/2020 12:00: 00 AM EST 1.0 {tablet} suspended Fluconazole 150 M G eCW1 ([facility]) BD Pen Needle Mini U/F 31G X 5 MM BD Pen Needle Mini U/F 31G X 5 MM 09/01/2020 12:00:00 AM EST active BD Pen N eedle Mini U/F 31G X 5 MM eCW1 ([facility]) BD Pen Needle Mini U/F 31G X 5 MM BD Pen Needle Mini U/F 31G X 5 MM 09/01/2020 12:00:00 AM EST active BD Pen N eedle Mini U/F 31G X 5 MM eCW1 ([facility]) Basaglar KwikPen 100 UNIT/ML Basaglar KwikPen 100 UNIT/ML 12:00:00 AM EST active Basaglar KwikPen 100 UNIT/ML eCW1 ([facility]) BD Pen Needle Mini U/F 31G X 5 MM BD Pen Needle Mini U/F 31G X 5 MM 09/01/2020 12:00:00 AM EST active BD Pen N eedle Mini U/F 31G X 5 MM eCW1 ([facility]) BD Pen Needle Mini U/F 31G X 5 MM BD Pen Needle Mini U/F 31G X 5 MM 09/01/2020 12:00:00 AM EST active BD Pen N eedle Mini U/F 31G X 5 MM eCW1 ([facility]) BD Pen Needle Mini U/F 31G X 5 MM BD Pen Needle Mini U/F 31G X 5 MM 09/01/2020 12:00:00 AM EST active BD Pen N eedle Mini U/F 31G X 5 MM eCW1 ([facility]) Basaglar KwikPen 100 UNIT/ML Basaglar KwikPen 100 UNIT/ML 12:00:00 AM EST active Basaglar KwikPen 100 UNIT/ML eCW1 ([facility]) Basaglar KwikPen 100 UNIT/ML Basaglar KwikPen 100 UNIT/ML 12:00:00 AM EST active Basaglar KwikPen 100 UNIT/ML eCW1 ([facility]) BD Pen Needle Mini U/F 31G X 5 MM BD Pen Needle Mini U/F 31G X 5 MM 09/01/2020 12:00:00 AM EST active BD Pen N eedle Mini U/F 31G X 5 MM eCW1 ([facility]) Basaglar KwikPen 100 UNIT/ML Basaglar KwikPen 100 UNIT/ML 12:00:00 AM EST active Basaglar KwikPen 100 UNIT/ML eCW1 ([facility]) Acetaminophen 325 MG / Hydrocodone Ju trate 7.5 MG Oral Tablet Hydrocodone- Acetaminophen 7.5-325 MG Hydrocodone-Acetaminophen 7.5-325 MG 08/06/2020 12:00:00 AM EST 1.0 {tablet_as_needed} active Hydrocodone- Acetaminophen 7.5-325 MG eCW1 ([facility]) Acetaminophen 325 MG / Hydrocodone Ju trate 7.5 MG Oral Tablet Hydrocodone- Acetaminophen 7.5-325 MG Hydrocodone-Acetaminophen 7.5-325 MG 08/06/2020 12:00:00 AM EST 1.0 {tablet_as_needed} active Hydrocodone- Acetaminophen 7.5-325 MG eCW1 ([facility]) Acetaminophen 325 MG / Hydrocodone Ju trate 7.5 MG Oral Tablet Hydrocodone- Acetaminophen 7.5-325 MG Hydrocodone-Acetaminophen 7.5-325 MG 08/06/2020 12:00:00 AM EST 1.0 {tablet_as_needed} active Hydrocodone- Acetaminophen 7.5-325 MG eCW1 ([facility]) pioglitazone 15 MG Oral Tablet Pioglitazone HCl 15 MG Piogli tazone HCl 15 MG 07/18/2020 12:00:00 AM EST 1.0 {tablet} active Pioglitazone HCl 15 MG eCW1 ([facility]) pioglitazone 15 MG Oral Tablet Pioglitazone HCl 15 MG Piogli tazone HCl 15 MG 07/18/2020 12:00:00 AM EST 1.0 {tablet} active Pioglitazone HCl 15 MG eCW1 ([facility]) pioglitazone 15 MG Oral Tablet Pioglitazone HCl 15 MG Piogli tazone HCl 15 MG 07/18/2020 12:00:00 AM EST 1.0 {tablet} active Pioglitazone HCl 15 MG eCW1 ([facility]) pioglitazone 15 MG Oral Tablet Pioglitazone HCl 15 MG Piogli tazone HCl 15 MG 07/18/2020 12:00:00 AM EST 1.0 {tablet} active Pioglitazone HCl 15 MG eCW1 ([facility]) pioglitazone 15 MG Oral Tablet Pioglitazone HCl 15 MG Piogli tazone HCl 15 MG 07/18/2020 12:00:00 AM EST 1.0 {tablet} active Pioglitazone HCl 15 MG eCW1 ([facility]) Fluconazole 150 MG Oral Tablet Fluconazole 150 MG 07/18/2020 12:00: 00 AM EST 1.0 {tablet} active Fluconazole 150 MG eCW1 ([facility]) pioglitazone 15 MG Oral Tablet Pioglitazone HCl 15 MG Piogli tazone HCl 15 MG 07/18/2020 12:00:00 AM EST 1.0 {tablet} active Pioglitazone HCl 15 MG eCW1 ([facility]) pioglitazone 15 MG Oral Tablet Pioglitazone HCl 15 MG Piogli tazone HCl 15 MG 07/18/2020 12:00:00 AM EST 1.0 {tablet} active Pioglitazone HCl 15 MG eCW1 ([facility]) pioglitazone 15 MG Oral Tablet Pioglitazone HCl 15 MG Piogli tazone HCl 15 MG 07/18/2020 12:00:00 AM EST 1.0 {tablet} active Pioglitazone HCl 15 MG eCW1 ([facility]) Fluconazole 150 MG Oral Tablet Fluconazole 150 MG 07/18/2020 12:00: 00 AM EST 1.0 {tablet} active Fluconazole 150 MG eCW1 ([facility]) pioglitazone 15 MG Oral Tablet Pioglitazone HCl 15 MG Piogli tazone HCl 15 MG 07/18/2020 12:00:00 AM EST 1.0 {tablet} active Pioglitazone HCl 15 MG eCW1 ([facility]) pioglitazone 15 MG Oral Tablet Pioglitazone HCl 15 MG Piogli tazone HCl 15 MG 07/18/2020 12:00:00 AM EST 1.0 {tablet} active Pioglitazone HCl 15 MG eCW1 ([facility]) pioglitazone 15 MG Oral Tablet Pioglitazone HCl 15 MG Piogli tazone HCl 15 MG 07/18/2020 12:00:00 AM EST 1.0 {tablet} active Pioglitazone HCl 15 MG eCW1 ([facility]) pioglitazone 15 MG Oral Tablet Pioglitazone HCl 15 MG Piogli tazone HCl 15 MG 07/18/2020 12:00:00 AM EST 1.0 {tablet} active Pioglitazone HCl 15 MG eCW1 ([facility]) pioglitazone 15 MG Oral Tablet Pioglitazone HCl 15 MG Piogli tazone HCl 15 MG 07/18/2020 12:00:00 AM EST 1.0 {tablet} active Pioglitazone HCl 15 MG eCW1 ([facility]) pioglitazone 15 MG Oral Tablet Pioglitazone HCl 15 MG Piogli tazone HCl 15 MG 07/18/2020 12:00:00 AM EST 1.0 {tablet} active Pioglitazone HCl 15 MG eCW1 ([facility]) pioglitazone 15 MG Oral Tablet Pioglitazone HCl 15 MG Piogli tazone HCl 15 MG 07/18/2020 12:00:00 AM EST 1.0 {tablet} active Pioglitazone HCl 15 MG eCW1 ([facility]) pioglitazone 15 MG Oral Tablet Pioglitazone HCl 15 MG Piogli tazone HCl 15 MG 07/18/2020 12:00:00 AM EST 1.0 {tablet} active Pioglitazone HCl 15 MG eCW1 ([facility]) pioglitazone 15 MG Oral Tablet Pioglitazone HCl 15 MG Piogli tazone HCl 15 MG 07/18/2020 12:00:00 AM EST 1.0 {tablet} active Pioglitazone HCl 15 MG eCW1 ([facility]) Fluconazole 150 MG Oral Tablet Fluconazole 150 MG 07/18/2020 12:00: 00 AM EST 1.0 {tablet} active Fluconazole 150 MG eCW1 ([facility]) Fluconazole 150 MG Oral Tablet Fluconazole 150 MG 07/18/2020 12:00: 00 AM EST 1.0 {tablet} active Fluconazole 150 MG eCW1 ([facility]) pioglitazone 15 MG Oral Tablet Pioglitazone HCl 15 MG Piogli tazone HCl 15 MG 07/18/2020 12:00:00 AM EST 1.0 {tablet} active Pioglitazone HCl 15 MG eCW1 ([facility]) pioglitazone 15 MG Oral Tablet Pioglitazone HCl 15 MG Piogli tazone HCl 15 MG 07/18/2020 12:00:00 AM EST 1.0 {tablet} active Pioglitazone HCl 15 MG eCW1 ([facility]) pioglitazone 15 MG Oral Tablet Pioglitazone HCl 15 MG Piogli tazone HCl 15 MG 07/18/2020 12:00:00 AM EST 1.0 {tablet} active Pioglitazone HCl 15 MG eCW1 ([facility]) Acetaminophen 325 MG / Hydrocodone Ju trate 7.5 MG Oral Tablet Hydrocodone- Acetaminophen 7.5-325 MG Hydrocodone-Acetaminophen 7.5-325 MG 07/07/2020 12:00:00 AM EST 1.0 {tablet_as_needed} active Hydrocodone- Acetaminophen 7.5-325 MG eCW1 ([facility]) Acetaminophen 325 MG / Hydrocodone Ju trate 7.5 MG Oral Tablet Hydrocodone- Acetaminophen 7.5-325 MG Hydrocodone-Acetaminophen 7.5-325 MG 07/07/2020 12:00:00 AM EST 1.0 {tablet_as_needed} active Hydrocodone- Acetaminophen 7.5-325 MG eCW1 ([facility]) Acetaminophen 325 MG / Hydrocodone Ju trate 7.5 MG Oral Tablet Hydrocodone- Acetaminophen 7.5-325 MG Hydrocodone-Acetaminophen 7.5-325 MG 07/07/2020 12:00:00 AM EST 1.0 {tablet_as_needed} active Hydrocodone- Acetaminophen 7.5-325 MG eCW1 ([facility]) 24 HR Metformin hydrochloride 500 MG Ext ended Release Oral Tablet MetFORMIN HCl ER 500 MG MetFORMIN HCl ER 500 MG 06/26/2020 12:00:00 AM EST active MetFORMIN HCl ER 500 MG eCW1 ([facility]) 24 HR Metformin hydrochloride 500 MG Ext ended Release Oral Tablet MetFORMIN HCl ER 500 MG MetFORMIN HCl ER 500 MG 06/26/2020 12:00:00 AM EST active MetFORMIN HCl ER 500 MG eCW1 ([facility]) 24 HR Metformin hydrochloride 500 MG Ext ended Release Oral Tablet MetFORMIN HCl ER 500 MG MetFORMIN HCl ER 500 MG 06/26/2020 12:00:00 AM EST active MetFORMIN HCl ER 500 MG eCW1 ([facility]) 24 HR Metformin hydrochloride 500 MG Ext ended Release Oral Tablet MetFORMIN HCl ER 500 MG MetFORMIN HCl ER 500 MG 06/26/2020 12:00:00 AM EST active MetFORMIN HCl ER 500 MG eCW1 ([facility]) Insurance Providers Payer name Policy type / Coverage type Policy ID Covered green party ID Covered green party's relationship to nicolas Policy Nicolas Plan Information FFS Self Pay [id number] Self [id number] MVP [facility] [id number] SP [id number] MV MEDICAID HMO -O/P [id number] 18 [id number] MV MEDICAID HMO -O/P 1 18 1 [facility] [id number] SP [id number] EMEDNY [id number] SP [id number] [facility] SP UNAVAILABLE S U NAVAILABLE SELF PAY SP UNAVAILABLE S UNAVAILA BLE P UNAVAILABLE UNAVAILA BLE [employer] [id number] SP [id number] CIGNA/MVP/CONN GEN/PREFE P [id number] S [id number] MEDICAID P [id number] S [id number] CIGNA INSURANCE CO [id number] SP [id number] SELF PAY UNAVAILABLE UNAVAILA BLE MEDICAID [id number] SP [id number] Self Pay P UNAVAILABLE S UNAVAILA BLE [facility] [id number] SP [id number] [facility] [id number] SP [id number] SELF PAY ONLY [id number] SP [id number] [employer] [id number] SP [id number] Problems, Conditions, and Diagnoses Code Display Name Description Problem Type Effective Dates Data Source(s) E872 Acidosis Acidosis Diagnosis 10/19/2020 06:44:00 PM ED T [facility] E873 Alkalosis Alkalosis Diagnosis 10/19/2020 06:44:00 PM ED T [facility] R1115 Cyclical vomiting syndrome unrelated to migraine Cyclical vomiting syndrome unrelated to migraine Diagnosis 10/19/2020 06:44:00 PM EDT [facility] V62081 Nicotine dependence, cigarettes, uncompl icated Nicotine dependence, cigarettes, uncomplicated Diagnosis 10/19/2020 06:44:00 PM EDT [facility] E119 Type 2 diabetes mellitus without complic ations Type 2 diabetes mellitus without complications Diagnosis 10/19/2020 06:44:00 PM EDT [facility] R079 Chest pain, unspecified Chest pain, unspecified Diagno sis 10/19/2020 06:44:00 PM EDT [facility] R112 Nausea with vomiting, unspecified Nausea with vo miting, unspecified Diagnosis 10/19/2020 06:44:00 PM EDT [facility] N3001 Acute cystitis with hematuria Acute cystitis with lindsey turia Diagnosis 10/19/2020 06:44:00 PM EDT [facility] R1013 Epigastric pain Epigastric pain Diagnosis 10/19/2020 06:4 4:00 PM EDT [facility] F41.1 [id number] SUZANNA (generalized anxiety disorder) Proble 02/06/2021 12:00:00 AM EDT eCW1 ([facility]) F32.9 [id number] Depression, unspecified depression type P roblem 02/06/2021 12:00:00 AM EDT eCW1 ([facility]) I10 [id number] Essential hypertension Problem 10/25/2020 12 :00:00 AM EDT eCW1 ([facility]) M54.41 [id number] Lumbago with sciatica, right side Problem 10/25/2020 12:00:00 AM EDT eCW1 ([facility]) Z79.4 [id number] intermediate frame tender (current) use of insulin Proble m 09/24/2020 12:00:00 AM EDT eCW1 ([facility]) E11.9 [id number] Type 2 diabetes mellitus without complica tions Problem 09/24/2020 12:00:00 AM EDT eCW1 ([facility]) G43.009 [id number] Migraine without aur a and without status migrainosus, not intractable Problem 07/08/2020 12:00:00 AM EST eCW1 ([facility]) F41.9 [id number] Anxiety Problem 06/26/2020 12:00:00 AM ES T eCW1 ([facility]) G89.29 [id number] Other chronic pain Problem 06/26/2020 12:00: 00 AM EST eCW1 ([facility]) E11.9 [id number] Type 2 diabetes gayatri itus without complication, without long-term current use of insulin Problem 06/26/2020 12:00:00 AM EST eCW1 ([facility]) 520.6 Impacted tooth Impacted tooth 05/13/2020 08:53: 08 AM EST [facility] Surgeries/Procedures No Information Results ID Date Data Source LIPID PANEL (CARDIAC RISK) 10/24/2020 12:00:00 AM EDT eCW1 ( [facility]) Name Value Range Interpretation Code Description Data Melonie rce(s) Supporting Document(s) Triglyceride [Mass/volume] in Serum or Plasma by calculation 85 <150 TRIGLYCERIDES LEVEL eCW1 ([facility]) Cholesterol in LDL [Mass/volume] in Serum or Plasma by calculation 95 <100 LDL CHOLESTEROL eCW1 ([facility]) 112 NON-HDL-C eCW1 ([facility]) Cholesterol [Moles/volume] in Serum or Plasma 156 <200 CHOLESTEROL LEVEL eCW1 ([facility]) Cholesterol in HDL [Moles/volume] in Serum or Plasma 44 >40 HDL CHOLESTEROL eCW1 ([facility]) 3.545 <5 CHOLESTEROL RISK RATIO eCW1 ([facility]) ID Date Data Source [id number] 10/24/2020 12:00:00 AM EDT eCW1 ([facility]) Name Value Range Interpretation Code Description Data Melonie rce(s) Supporting Document(s) Hemoglobin A1c/Hemoglobin.total in Blood 8.8 HEMOGLOBIN A1c eCW1 ([facility]) ID Date Data Source [id number] 10/21/2020 03:02:[address] [facility] [address] [place] [address] RESPIRATORY CARE REPORT ==== ---------NAME------- NUMBER SEX AGE ADMIT DISC. XRAY# F/C JOSEMANUEL HUFF N [id number] F 40 10/19/20 10/19/20 [id number] XBM E/R DATE OF : 1980 M/R# [id number] PH#: [phone] TR-02 LOCATION: EMERGENCY DEPT EKG [id number] COMP LETE:10/20/20 02:05 AJP [id number] PHYSICIAN: TOSHA ARMENTA Name Value Range Interpretation Code Description Data Melonie rce(s) Supporting Document(s) ID Date Data Source [id number] 10/20/2020 09:13:00 [place] [address] PHONE: [phone] FAX: [phone] Name .................. : YUMI Keane Acct Number.................. : [id number] ROOM. ................. : TR-02 Number ................... : [id number] Stay type ............. : E/R Discharge Date......... ... : Admit Date ......... : 10/19/20 Admit Phys .................... : TOSHA Tony Date of ....... : 1980 Family Phys ................... : RUCHI TENORIO Phone .................. : [phone] Age ................................ : 40 Film# .................. .:[id number] Sex ................................. : F Unsigned transcriptions are preliminary reports and do not represent a medical or legal document CHEST PORTABLE [id number] COMPLETE:10/19/20 19:58 DLA 8501 Reason(s): Chest Pain [...] 10/19/20 21:19, Dictation Date: Copy for: DARWIN ABEL via fax Copy for: EMERGENCY DEPT via modem Copy for: 710 MED REC DISCHARGED Page 1 of 1 Name Value Range Interpretation Code Description Data Melonie rce(s) Supporting Document(s) ID Date Data Source [id number] 10/19/2020 06:44:00 PM EDT [facility] 1 OrderSheet [facility] Emergency Department [address] [place] [address] Phone #: [phone]- [phone] 10/19/2020 18:26 Patient: REFUGIO EASON Sex: F [...] W/O IV Yesika Caruso R.N. 2 OrderSheet [facility] Emergency Department [address] [place] [address] Phone #: ext- [phone] 10/19/2020 18:26 Patient: [...] x1, HIGH Tushar Boss PA;MEDICATION, 3 OrderSheet [facility] Emergency Department [address] [place] [address] Phone #: ext- [phone] 10/19/2020 18:26 Patient: REFUGIO EASON Sex: F [...] rce(s) Supporting Document(s) ID Date Data Source [id number] 10/19/2020 06:44:00 PM EDT [facility] 1 Medication Reconciliation Report [facility] Emergency Department [address] [place] [address] Phone #: ext- [phone] 10/19/2020 18:26 Patient: REFUGIO EASON Sex: F [...] administered: 21:36 10/19/2020 2 Medication Reconciliation Report [facility] Emergency Department [address] [place] [address] Phone #: ext- [phone] 10/19/2020 18:26 - Patient: REFUGIO EASON Sex: F : 1980 Age: 40yPROMETHAZINE [IVP] IVP 25 mg, administered: 22:15 10/19/2020The following Medications were prescribed to the patient:ondansetron 8 mg disintegrating tablet Take 1 tablet three times a day for 10 days -- Dispense 30tablet. Refills: 0. Substitution permitted.[facility] - [address] [place] [address] ; [place] [address]. .cefdinir 300 mg capsule Take 1 capsule twice a day for 7 days -- Dispense 14 capsule. Refills: 0.Substitution permitted.[facility]837 - [address] [place] [address]. .fluconazole 150 mg tablet Take 1 tablet single dose as needed for 1 days -- May repeat in 1 week if s/spersist. Dispense 2 tablet. R efills: 0. Substitution permitted.[place] [address] - [address] [place] [address]. . -- IVANNA Bush Name Value Range Interpretation Code Description Data Melonie rce(s) Supporting Document(s) ID Date Data Source [id number] 10/19/2020 06:44:00 PM EDT [facility] 1 Medication Administration Record [facility] Emergency Department [address] [place] [address] Phone #: ext- [phone] 10/19/2020 18:26 Patient: REFUGIO EASON Sex: F : 1980 Age: 40yWeight: 68.0 kgHeight/Length: 61 inBMI: 28.3ALLERGIES: NKDA Date/Time Medication Administered Medication OrderedStart NS [IV] NS IV : Bolus 1000 mL, then 32230:56 10/19/2020 Dose: IV Fluids mL/Jaclyn Emerson RSinai [...] wristStart ROCEPHIN (1GM/50ML) [IVPB] Rocephin (1gm/50mL) IVPB 724974:[id number] 10/19/2020 (CEFTRIAXONE SODIUM) mg with Dextrose 50 [...] rce(s) Supporting Document(s) ID Date Data Source [id number] 10/19/2020 06:44:00 PM EDT [facility] 1 General Instructions [facility] Emergency Department [address] [place] [address] Phone #: ext- [phone] 10/19/2020 18:26 Patient: REFUGIO EASON Sex: F [...] Dispense 30tablet. Refills: 0. Substitution permitted.Pharmacy - [facility] [address] ; [place] [address]. .cefdinir 300 mg capsule Take 1 capsule twice a day for 7 days -- Dispense 14 capsule. Refills: 0.Substitution permitted.[email or web address] [address] [place] [address]. .fluconazole 150 mg tablet Take 1 tablet single dose as needed for 1 days -- May repeat in 1 week if s/spersist. Dispense 2 tablet. Refills: 0. Sub stitution permitted.[email or web address] [place] [address]. .Follow-up:Follow up with your doctor Tuesday. Reason for referral: evaluation, treatment and refer to Urology, Pain 2 General Instructions [facility] Emergency Department [address] [place] [address] Phone #: ext- [phone] 10/19/2020 18:26 Patient: [...] and water are not available, use alcohol-based digital analyst to keep from spreading the infection to [...] then follow these guidelines: 3 General Instructions [facility] Emergency Department [address] [place] [address] Phone #: ext- [phone] 10/19/2020 18:26 Patient: [...] Unusually drowsy or confused 4 General Instructions [facility] Emergency Department [address] [place] [address] Phone #: ext- [phone] 10/19/2020 18:26 Patient: REFUGIO EASON Sex: F : 1980 Age: 40y Fever of 100.4F (38C) oral or higher, or as directed Yellow color of the eyes or skin [employer]. [address] [place] [address], [place] [address]. All rights reserved. This information is not [...] of cystitis isan infection. 5 General Instructions [facility] Emergency Department [address] [place] [address] Phone #: ext- [phone] 10/19/2020 18:26 Patient: REFUGIO EASON Sex: F [...] put in Older age 6 General Instructions [facility] Emergency Department [address] [place], [place] [id number] Phone #: ext- [phone] 10/19/2020 18:26 Patient: REFUGIO EASON Sex: F [...] and vegetables, and fiber. 7 General Instructions [facility] Emergency Department [address] [id number] Phone #: ext- [phone] 10/19/2020 18:26 Patient: [...] if the results will affect your treatment.Call [phone] [phone] if any of the following occur: Trouble [...] outer vaginal area (labia) 8 General Instructions [facility] Emergency Department [address] [place] [address] Phone #: ext- [phone] 10/19/2020 18:26 Patient: REFUGIO EASON Sex: F : 1980 Age: 40y [phone] [employer] [place] [address], [place] [address]. All rights reserved. This information is not intended as asubstitute for professional medical care. Always follow your healthcare professional's instructions. You have been given the following additional information: Vomiting (Adult) Bladder Infection, Female (Adult)(Electronically signed by IVANNA Bush 10/19/2020 22:11) Name Value Range Interpretation Code Description Data Melonie rce(s) Supporting Document(s) ID Date Data Source [id number] 10/19/2020 06:44:00 PM EDT [facility] 1 Clinical Report - Nurses [facility] Emergency Department [address] [place] [address] Phone #: ext- [phone] 10/19/2020 18:26 Patient: [...] breathing or skin rash. 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 2 Clinical Report - Nurses [facility] Emergency Department [address] [place] [address] Phone #: [phone]- [phone] 10/19/2020 18:26 [id number] Sex: F : 1980 Age: 40y ADDITIONAL [...] Mari R.N. 3 Clinical Report - Nurses [facility] Emergency Department [address] [place] [address] Phone #: ext- [phone] 10/19/2020 18:26 Patient: REFUGIO EASON Sex: F [...] 10/19/20 Jaclyn Fofana R.N. Patient transported to [place] by wheelchair with mask and certified ophthalmic technician. --18:56 10/19/20 Jaclyn Fofana R.N. EKG [...] Roberts R.N. 4 Clinical Report - Nurses [facility] Emergency Department [address] [place] [address] Phone #: ext- [phone] 10/19/2020 18:26 Patient: REFUGIO EASON Sex: F : 1980 Age: 40y19:35 10/19/2020 Ofirmev IVPB Discontinued: bag #1 infused. Total amount infused: 100ml mL. IVpatency established. IV site checked: no pain, redness, or swelling. IV flushed thoroughly. --19:35 10/19/20Yesika Mari R.N.20:02 10/19/20. BP: 161/79. MAP: 106. HR: 57. RR: 15. O2 saturation: 100%. --20:02 [id number]2020 IV Fluids NS via IV site #1 Discontinued: bag #1 completed. Total amount infused: 1000mL. --20:14 10/19/20 Farrah Sanchez R.N.20:30 10/19/20. BP: 144/93. MAP: 110. HR: 57. RR: 14. O2 saturation: 99% on room air. --20: Yesika Mari R.N.Oxygen administered by nasal cannula at 2 liters. monitor worker, NIBP monitor and pulse oximeterplaced on patient; [...] sample). --20:51 10/19/20 Yesika Mari R.N.21:00 10/19/20. monitor worker, NIBP monitor and pulse oximeter placed on [...] Total amount 5 Clinical Report - Nurses [facility] Emergency Department [address] [place] [address] Phone #: ext- [phone] 10/19/2020 18:26 Patient: [facility]AS[id number] Sex: F : 1980 Age: 40y infused: [...] Patient verbalized understanding. Written instructions provided in Czech. The patient was discharged by the physician virtual assistant for advertisers. She was discharged home and accompanied by [...] rce(s) Supporting Document(s) ID Date Data Source [id number] 10/19/2020 06:44:00 PM EDT [facility] 1 Clinical Report - Physicians/Mid Levels [facility] Emergency Department [address] [place] [address] Phone #: ext- [phone] 10/19/2020 18:26 Patient: REFUGIO EASON Sex: F [...] HISTORY 2 Clinical Report - Physicians/Mid Levels [facility] Emergency Department [address] [place] [address] Phone #: ext- [phone] 10/19/2020 18:26 Patient: REFUGIO EASON Sex: F [...] Laboratory Tests: ETOH: (USMAN: 10/19/2020 18:48) ( [facility]/19/[place] 19:39) Final results Test Result Flag Units (Reference) ALCOHOL <10.0 MG/DL ALCOHOL % 0.01 % (0.00 - 0.01) *FOR MEDICAL PURPOSES ONLY* Troponin-T: (USMAN: 10/19/2020 18:48) ( [facility] 10/19/2020 19:45) Final results Test Result Flag Units (Reference) TROPONIN T <0.01 NG/ML (0.00 - 0.10) TROPONIN T0.1 ng/ml Recommended as the clinical threshold value forTroponin T. Chest Portable 1 View: (USMAN: 10/19/2020 18:47) ( [facility] 10/19/2020 19:59) In Progress CHEST PORTABLE Reason(s): Chest Pain TRANSPORTATION: IV? O2? Oxygen?(No) Room: ED CT ABD PEL W/O Oral W/O IV Contrast: (USMAN: 10/19/2020 18:46) ( [facility] 10/19/2020 19:29) Final results 3 Clinical Report - Physicians/Mid Levels [facility] Emergency Department [address] [place] [address] Phone #: ext- [phone] 10/19/2020 18:26 Patient: REFUGIO EASON Sex: F : 1980 Age: 40yExamCT ABD //T// PELV W/O ORAL W/O IV [address] [facility] [place] [address]---------FNTF--------- NUMBER SEX AGE ADMIT DISCCassie BARNETT# F/C JOSEMANUEL HUFF N [id number] F 40 10/19/20 [id number] XBM E/R DATE OF : 1980 M/R# [id number] #: [id number] TR-02 LOCATION: EMERGENCY DEPT TRANSCRIBED: 10/19/20 19:[address] ABD //T// PELV W/O ORAL W/[place] [id number] COMPLETED:10/19/20 19:22 joceline 8500 Reason(s): Abdominal Pain [...] is evident. 4 Clinical Report - Physicians/Mid [facility] Emergency Department [address] [place] [address] Phone #: ext- [phone] 10/19/2020 18:26 Patient: [...] PANEL 5 Clinical Report - Physicians/Mid Levels [facility] Emergency Department [address] [place] [address] Phone #: ext- [phone] 10/19/2020 18:26 Patient: REFUGIO EASON [facility]#: [id number] Sex: F : 1980 Age: 40y COMPREHENSIVE [...] with Fentanyl, pt reports being seen at [facility] recently for similar symptomsand refused to believe [...] hematuria. 6 Clinical Report - Physicians/Mid Levels [facility] Emergency Department [address] [place] [address] Phone #: ext- [phone] 10/19/2020 18:26 Patient: [...] Dispense 30 tablet. Refills: 0. Substitution permitted. [facility]942 - [address] [place] [address]. . cefdinir 300 mg capsule Take 1 capsule twice a day for 7 days -- Dispense 14 capsule. Refills: 0. Substitution permitted. [facility] [address] [place] [address]. . fluconazole 150 mg tablet Take 1 tablet single dose as needed for 1 days -- May repeat in 1 week if s/s persist. Dispense 2 tablet. Refills: 0. Substitution permitted. [facility] [address] - [address] [place] [address]. . Follow-up: Follow up with your doctor Tuesday. Reason for referral: evaluation, treatment and refer to Urology, Pain management and MRI for Chronic back pain is symptoms worsen.. Summary of care provided to patient. Understanding of the discharge instructions verbalized by patient. 7 Clinical Report - Physicians/Mid Levels [facility] Emergency Department [address] [place] [address] Phone #: ext- [phone] 10/19/2020 18:26 Patient: REFUGIO EASON Sex: F : 1980 Age: 40y(Electronically signed by IVANNA Bush 10/19/2020 22:11) Name Value Range Interpretation Code Description Data Melonie rce(s) Supporting Document(s) ID Date Data Source [id number] 10/23/2020 08:29:00 PM EDT [facility] Name Value Range Interpretation Code Description Data Melonie rce(s) Supporting Document(s) CULTURE URINE [facility] spital _CULTURE URINE_$$[id number]$$638437$$283469$$424335$$026889$$320155$$332404$$481626$$196399$$ 545952$$690199$$211167$$066985$$641424$$737785$$284060$$485515$$622897$$606540$$ 681799$$387520$$804138$$591344$$231261$$966834$$894245$$590538 -- Continued on next page --Patient: YUMI HUFF N Order: [id number] Page 2Culture: CULTURE URINE Status: Final ==== -- Continued on next page --Patient: YUMI HUFF N Order: [id number] Page 2Culture: CULTURE URINE Status: Prelim =====$$[id number]$$[id number] DATE/TIME: 10/23/2020 15:06Culture: CULTURE URINE Status: FinalIsolate 1 Escherichia coli Flag: A . . . . . . .1Greater than 100,000 colony forming units per mLSusceptibility profile is consistent with a probable ESBL. Previous result entered on 10/23/2020 00:28 ET Escherichia coliUrine Culture,Comprehensive: E3Xmnzwphrore coli Flag: APatient: YUMI Keane Order: [id number] Page 3Culture: CULTURE URINE Status: Final ISOLATE [...] S S . . . . . .18538-1Ffutqhnouy S S . . . . . .267-5Imipenem S S . . . . . .279-0Levofloxacin R R . . . . . .00977- 8Meropenem S S . . . . . .6652-2Nitrofurantoin S S . . . . . .363-2Piperacillin/Tazobactam S S . . . . . .412-7Tetracycline S S . . . . . .496-0Tobramycin S S . . . . . .508- 2Trimethoprim/Sulfa S S . . . . . .516-5P1 Test performed by: [facility] #: [id number] [address] [place] [address] [id number] [facility] [id number] Director : Frederick Garay MD NPI #:Independent Driver : 10/23/20.0654.XMT.SENT REF 10/23/20.XMT.SENT REF ID Date Data Source [id number] 10/19/2020 09:28:00 PM EDT [facility] Name Value Range Interpretation Code Description Data Melonie rce(s) Supporting Document(s) DRUG SCREEN URINE [facility] URINE DRUG SCREEN Amphetamine [Presence] in Urine by Screen method NEGATIVE NORMAL: N EGATIVE [facility] BARBITURATES NEGATIVE NORMAL: NEGATIVE [facility] BENZO NEGATIVE NORMAL: NEGATIVE [facility] COCAINE NEGATIVE NORMAL: NEGATIVE [facility] Tetrahydrocannabinol [Presence] in Urine PRESUMP POS NORMAL: NEGATIVE [facility] OPIATES NEGATIVE NORMAL: NEGATIVE [facility] Phencyclidine [Presence] in Urine by Screen method NEGATIVE NOR MAL: NEGATIVE [facility] \\BLDo\\URINE DRUG SCR EEN INTERPRETATION\\BLDx\\ THE CUTOFFF LEVELS FOR DETECTION ARE FOLLOWS: AMPHETAMINES 1000 ng/ml BARBITUARATES 200 ng/ml BENZODIAZEPINES 100 ng/ml THC 50 ng/ml PHENCYCLIDINE 25 ng/ml OPIATES 300 ng/ml COCAINE 300 ng/ml ALL POSITIVES ARE CONSIDERED PRESUMPTIVE POSITIVE CONFIRMATION WILL BE PERFORMED AT PHYSICIAN REQUEST. ID Date Data Source [id number] 10/19/2020 09:24:00 PM EDT [facility] Name Value Range Interpretation Code Description Data Melonie rce(s) Supporting Document(s) URINALYSIS [facility] sangeetha URINALYSIS SOURCE Clean Catch [facility] ital COLOR yellow NORMAL: Yellow [facility] CLARITY hazy NORMAL: Clear [facility] Specific gravity of Urine by Test strip 1.015 1.001 - 1.030 [facility] pH 6.5 5 - 9 [facility] Glucose [Mass/volume] in Urine by Test strip 250 NORMAL: Negat sabrina A [facility] Bilirubin.total [Presence] in Urine by Test strip NEG NORMAL: Negative [facility] Ketones [Presence] in Urine by Test strip 150 NORMAL: Negative [facility] Protein [Mass/volume] in Urine by Test strip 30 NORMAL: Negat sabrina [facility] Nitrite [Presence] in Urine by Test strip POS NORMAL: Negative [facility] BLOOD 10 NORMAL: Negative [facility] Leukocyte esterase [Presence] in Urine by Test strip 100 JL L: Negative [facility] Urobilinogen [Mass/volume] in Urine by Test strip NOR less ruben n 1.0 mg/dL [facility] MICROSCOPIC See Below [facility] ital WBC 30 - 40 NORMAL: NONE SEEN [facility] Erythrocytes [#/volume] in Urine by Test strip 0 - 1 NORMAL: NON E SEEN [facility] EPITHELIAL FEW NORMAL: NONE SEEN [facility] Bacteria [Presence] in Urine sediment by Light microscopy 1+ SMALL NORMAL: NONE SEEN [facility] ID Date Data Source [id number] 10/19/2020 08:36:00 PM EDT [facility] Name Value Range Interpretation Code Description Data Melonie rce(s) Supporting Document(s) SITE RADIAL LT [facility] al pH of Arterial blood 7.47 7.34 - 7.44 H [facility] Carbon dioxide [Partial pressure] in Blood 26.0 mm/HG 32.0 - 42.0 L [facility] Oxygen [Partial pressure] in Blood 86.0 mm/HG 75.0 - 100 [facility] Bicarbonate [Moles/volume] in Blood 18.3 meq/L 20.0 - 24.0 L [facility] TCO2 19.1 meq/L 21.0 - 25.0 L [facility] pital Base excess in Blood by calculation -3.7 -2.0 - 2.0 L [facility] O2 SAT 97.0 % 95.0 - 98.0 [facility] ital ID Date Data Source [id number] 10/19/2020 07:22:00 PM EDT [facility] [address] [place] [address] ---------NAME--------- NUMBER SEX AGE ADMIT DISC. XRAY# F/C TYPE YUMI HUFF N [id number] F 40 10/19/20 [id number] XBM E/R DATE OF : 1980 M/R# [id number] #: [id number] TR-02 LOCATION: EMERGENCY DEPT TRANSCRIBED: 10/19/20 19:[address] ABD //T// PELV W/O ORAL W/[place] [id number] COMPLETED:10/19/20 19:22 joceline 8500 Reason(s): Abdominal Pain PHYSICIAN: TOSHA AMES ORTH === R A D I O [...] Name Value Range Interpretation Code Description Data [facility] rce(s) Supporting Document(s) ID Date Data Source [id number] 10/19/2020 07:44:00 PM EDT [facility] Name Value Range Interpretation Code Description Data [facility] Supporting Document(s) CBC W/AUTOMATED DIFF [facility] COMPLETE BLOOD COUNT Leukocytes [#/volume] in Blood by Automated count 21.7 10^3/uL 4.2 - 11.0 H [facility] Erythrocytes [#/volume] in Blood by Automated count 5.39 10^6/uL 4. 20 - 5.40 [facility] Hemoglobin [Mass/volume] in Blood 15.8 g/dL 12.0 - 16.0 [facility] Hematocrit [Volume Fraction] of Blood by Automated count 45.3 % 3 7.0 - 47.0 [facility] Erythrocyte mean corpuscular volume [Entitic volume] by Auto mated count 84.0 fL 81.0 - 101 [facility] Erythrocyte mean corpuscular hemoglobin [Entitic mass] by Automated count 29.3 pg 27.0 - 34.0 [facility] Erythrocyte mean corpuscular hemoglobin concentration [Mass/volume] by Automated count 34.9 g/dL 31.0 - 36.0 [facility] Erythrocyte distribution width [Ratio] by Automated count 14.4 % 11.5 - 14.5 [facility] Platelets [#/volume] in Blood by Automated count 440 10^3/uL 150 - 45 0 [facility] Platelet mean volume [Entitic volume] in Blood by Automated count 10.3 fL 7.4 - 10.4 [facility] Neutrophils/100 leukocytes in Blood by Automated count 85.9 % 37. 0 - 80.0 H [facility] Lymphocytes/100 leukocytes in Blood by Manual count 10.3 % 25.0 - 40.0 L [facility] Monocytes/100 leukocytes in Blood by Automated count 2.8 % 3.0 - 8.0 L [facility] Eosinophils/100 leukocytes in Blood by Automated count 0.0 % 0.0 - 7.0 [facility] Basophils/100 leukocytes in Blood by Automated count 0.5 % 0.0 - 2.5 [facility] %IG 0.5 % 0.0 - 0.0 H [facility] %NRBC 0.0 % 0.0 - 0.0 [facility] al Neutrophils [#/volume] in Blood by Automated count 18.61 10^3/uL 2. 00 - 6.90 H [facility] Lymphocytes [#/volume] in Blood by Automated count 2.23 10^3/uL 0.60 - 3.40 [facility] Monocytes [#/volume] in Blood by Automated count 0.60 10^3/uL 0.00 - 0.90 [facility] Eosinophils [#/volume] in Blood by Automated count 0.01 10^3/uL 0.00 - 0.70 [facility] Basophils [#/volume] in Blood by Automated count 0.11 10^3/uL 0.00 - 0.20 [facility] #IG 0.11 10^3/uL 0.00 - 0.10 H [facility] ospital #NRBC 0.00 10^3/uL 0.00 - 0.00 [facility] ospital MANUAL DIFF NOT INDICATED [facility] RBC MORPH NOT INDICATED [facility] ID Date Data Source [id number] 10/19/2020 07:44:00 PM EDT [facility] Name Value Range Interpretation Code Description Data Melonie rce(s) Supporting Document(s) TROPONIN T <0.01 NG/ML 0.00 - 0.10 [facility] ospital TROPONIN T0.1 ng/ml Recommended as the c linical threshold value forTroponin T. ID Date Data Source [id number] 10/19/2020 07:44:00 PM EDT [facility] Name Value Range Interpretation Code Description Data Melonie e(s) Supporting Document(s) COMPREHENSIVE METABOLIC PANEL [facility] COMPREHENSIVE METABOLIC PANEL Sodium [Moles/volume] in Serum or Plasma 138 mEq/L 134 - 153 [facility] Potassium [Moles/volume] in Serum or Plasma 4.4 mEq/L 3.6 - 5.0 [facility] Chloride [Moles/volume] in Serum or Plasma 99 mEq/L 98 - 107 [facility] Carbon dioxide, total [Moles/volume] in Serum or Plasma 17 MEQ/L 22 - 30 L [facility] Glucose [Mass/volume] in Serum or Plasma 230 MG/DL 70 - 99 H [facility] BUN 20 MG/DL 7 - 21 [facility] Creatinine [Mass/volume] in Serum or Plasma 0.7 MG/DL 0.7 - 1.5 [facility] BUN/CREAT 29 8 - 27 H [facility] al Protein [Mass/volume] in Serum or Plasma 8.3 G/DL 6.3 - 8.2 H [facility] Albumin [Mass/volume] in Serum or Plasma 5.3 G/DL 3.9 - 5.0 H [facility] Globulin [Mass/volume] in Serum by calculation 3.0 GM/DL 2.4 - 3.2 [facility] A/G RATIO 1.8 0.8 - 2.0 [facility] Calcium [Mass/volume] in Serum or Plasma 10.5 MG/DL 8.4 - 10.2 H [facility] Bilirubin.total [Mass/volume] in Serum or Plasma 0.8 MG/DL 0.2 - 1.3 [facility] Alkaline phosphatase [Enzymatic activity/volume] in Serum or Plasma 94 U/L 38 - 126 [facility] Aspartate aminotransferase [Enzymatic activity/volume] in Serum or Plasma 11 U/L 5 - 40 [facility] Alanine aminotransferase [Enzymatic activity/volume] in Seru m or Plasma 12 U/L 7 - 56 [facility] Anion gap 3 in Serum or Plasma 22.0 mmol/L 8.0 - 16.0 H [facility] AGE 40 yrs [facility] NON-AA GFR >60 mL/min [facility] ital AFR AMER GFR >60 mL/min [facility] sp[facility] Male GFR In terprentation 20-49 [...] >32 mL/min Normal ID Date Data Source [id number] 10/19/2020 07:39:00 PM EDT [facility] Name Value Range Interpretation Code Description Data Melonie rce(s) Supporting Document(s) Ethanol [Moles/volume] in Blood <10.0 MG/DL [facility] ALCOHOL % 0.01 % 0.00 - 0.01 [facility] ital *FOR MEDICAL PURPOSES ONLY * ID Date Data Source [id number] 10/19/2020 07:39:00 PM EDT [facility] Name Value Range Interpretation Code Description Data Melonie rce(s) Supporting Document(s) Lipase [Enzymatic activity/volume] in Serum or Plasma 17 U/L 13 - 60 [facility] ID Date Data Source [id number] 05/13/2020 08:27:05 AM [facility] Current Problems: Impacted tooth (ICD-52 0.6) ([id number]) Dental Chart: Procedures:Type - CDT Code - [...] today's appointment. Recommended pt try using a deputy sheriff building guard, hot/cold compresses/ and ibuprofen to help with [...] Assessment & Plan Problems:Added: Impacted tooth (ICD-520.6) ([id number]-K22.1) Name Value Range Interpretation Code Description Data Melonie rce(s) Supporting Document(s) Procedure Social History Code Duration Value Status Description Data Source(s ) Smoking 02/06/2021 12:00:00 AM EDT Current Smoker completed Curre nt Smoker eCW1 ([facility]) Smoking 02/06/2021 12:00:00 AM EDT Current Smoker completed Curre nt Smoker eCW1 ([facility]) Smoking 02/06/2021 12:00:00 AM EDT Current Smoker completed Curre nt Smoker eCW1 ([facility]) Smoking 02/06/2021 12:00:00 AM EDT Current Smoker completed Curre nt Smoker eCW1 ([facility]) Smoking 02/06/2021 12:00:00 AM EDT Current Smoker completed Curre nt Smoker eCW1 ([facility]) Smoking 02/06/2021 12:00:00 AM EDT Current Smoker completed Curre nt Smoker eCW1 ([facility]) Smoking 02/06/2021 12:00:00 AM EDT Current Smoker completed Curre nt Smoker eCW1 ([facility]) Smoking 02/06/2021 12:00:00 AM EDT Current Smoker completed Curre nt Smoker eCW1 ([facility]) Smoking 02/06/2021 12:00:00 AM EDT Current Smoker completed Curre nt Smoker eCW1 ([facility]) Smoking 02/06/2021 12:00:00 AM EDT Current Smoker completed Curre nt Smoker eCW1 ([facility]) Smoking 02/06/2021 12:00:00 AM EDT Current Smoker completed Curre nt Smoker eCW1 ([facility]) Smoking 11/21/2020 12:00:00 AM EDT Current Smoker completed Curre nt Smoker eCW1 ([facility]) Smoking 11/21/2020 12:00:00 AM EDT Current Smoker completed Curre nt Smoker eCW1 ([facility]) Smoking 11/21/2020 12:00:00 AM EDT Current Smoker completed Curre nt Smoker eCW1 ([facility]) Smoking 11/21/2020 12:00:00 AM EDT Current Smoker completed Curre nt Smoker eCW1 ([facility]) Smoking 11/21/2020 12:00:00 AM EDT Current Smoker completed Curre nt Smoker eCW1 ([facility]) Smoking 11/21/2020 12:00:00 AM EDT Current Smoker completed Curre nt Smoker eCW1 ([facility]) Smoking 11/21/2020 12:00:00 AM EDT Current Smoker completed Curre nt Smoker eCW1 ([facility]) Smoking 10/24/2020 12:00:00 AM EDT Current Smoker completed Curre nt Smoker eCW1 ([facility]) Smoking 10/24/2020 12:00:00 AM EDT Current Smoker completed Curre nt Smoker eCW1 ([facility]) Smoking 10/24/2020 12:00:00 AM EDT Current Smoker completed Curre nt Smoker eCW1 ([facility]) Smoking 10/24/2020 12:00:00 AM EDT Current Smoker completed Curre nt Smoker eCW1 ([facility]) Smoking 10/24/2020 12:00:00 AM EDT Current Smoker completed Curre nt Smoker eCW1 ([facility]) Smoking 10/24/2020 12:00:00 AM EDT Current Smoker completed Curre nt Smoker eCW1 ([facility]) Smoking 10/24/2020 12:00:00 AM EDT Current Smoker completed Curre nt Smoker eCW1 ([facility]) Smoking 09/24/2020 12:00:00 AM EDT Current Smoker completed Curre nt Smoker eCW1 ([facility]) Smoking 09/24/2020 12:00:00 AM EDT Current Smoker completed Curre nt Smoker eCW1 ([facility]) Smoking 09/24/2020 12:00:00 AM EDT Current Smoker completed Curre nt Smoker eCW1 ([facility]) Smoking 09/24/2020 12:00:00 AM EDT Current Smoker completed Curre nt Smoker eCW1 ([facility]) Smoking 09/24/2020 12:00:00 AM EDT Current Smoker completed Curre nt Smoker eCW1 ([facility]) Smoking 09/24/2020 12:00:00 AM EDT Current Smoker completed Curre nt Smoker eCW1 ([facility]) Smoking 09/01/2020 12:00:00 AM EST Current Smoker completed Curre nt Smoker eCW1 ([facility]) Smoking 09/01/2020 12:00:00 AM EST Current Smoker completed Curre nt Smoker eCW1 ([facility]) Smoking 09/01/2020 12:00:00 AM EST Current Smoker completed Curre nt Smoker eCW1 ([facility]) Smoking 07/18/2020 12:00:00 AM EST Current Smoker completed Curre nt Smoker eCW1 ([facility]) Smoking 07/18/2020 12:00:00 AM EST Current Smoker completed Curre nt Smoker eCW1 ([facility]) Smoking 07/18/2020 12:00:00 AM EST Current Smoker completed Curre nt Smoker eCW1 ([facility]) Smoking 07/18/2020 12:00:00 AM EST Current Smoker completed Curre nt Smoker eCW1 ([facility]) Smoking 06/26/2020 12:00:00 AM EST Current Smoker completed Curre nt Smoker eCW1 ([facility]) Smoking 06/26/2020 12:00:00 AM EST Current Smoker completed Curre nt Smoker eCW1 ([facility]) Smoking 06/26/2020 12:00:00 AM EST Current Smoker completed Curre nt Smoker eCW1 ([facility]) Smoking 06/26/2020 12:00:00 AM EST Current Smoker completed Curre nt Smoker eCW1 ([facility]) Vital Signs ID Date Data Source UNK Name Value Range Interpretation Code Description Data Source(s) Body weight 160.2 [lb_av] 160.2 [lb_av] eCW1 ([facility]) Body height 62 [in_i] 62 [in_i] eCW1 ([facility]) Body mass index (BMI) [Ratio] 29.30 kg/m2 29.30 kg/m2 eCW1 ([facility]) Heart rate 93 /min 93 /min eCW1 ([facility]) Respiratory rate 18 /min 18 /min eCW1 ([facility]) Body temperature 98.2 [degF] 98.2 [degF] eCW1 ( [facility]) Systolic blood pressure 130 mm[Hg] 130 mm[Hg] e CW1 ([facility]) Diastolic blood pressure 70 mm[Hg] 70 mm[Hg] eCW1 ([facility]) Body weight 163.6 [lb_av] 163.6 [lb_av] eCW1 ([facility]) Body height 62 [in_i] 62 [in_i] eCW1 ([facility]) Body mass index (BMI) [Ratio] 29.92 kg/m2 29.92 kg/m2 eCW1 ([facility]) Heart rate 98 /min 98 /min eCW1 ([facility]) Respiratory rate 18 /min 18 /min eCW1 ([facility]) Body temperature 98.5 [degF] 98.5 [degF] eCW1 ( [facility]) Systolic blood pressure 126 mm[Hg] 126 mm[Hg] e CW1 ([facility]) Diastolic blood pressure 84 mm[Hg] 84 mm[Hg] eCW1 ([facility]) Body weight 157.2 [lb_av] 157.2 [lb_av] eCW1 ([facility]) Body temperature 97.9 [degF] 97.9 [degF] eCW1 ( [facility]) Body height 62 [in_i] 62 [in_i] eCW1 ([facility]) Body mass index (BMI) [Ratio] 28.75 kg/m2 28.75 kg/m2 eCW1 ([facility]) Heart rate 106 /min 106 /min eCW1 ([facility]) Respiratory rate 18 /min 18 /min eCW1 ([facility]) Systolic blood pressure 14 mm[Hg] 14 mm[Hg] e CW1 ([facility]) Diastolic blood pressure 90 mm[Hg] 90 mm[Hg] eCW1 ([facility]) Body weight 155 [lb_av] 155 [lb_av] eCW1 ([facility]) Body height 62 [in_i] 62 [in_i] eCW1 ([facility]) Body mass index (BMI) [Ratio] 28.35 kg/m2 28.35 kg/m2 eCW1 ([facility]) Heart rate 80 /min 80 /min eCW1 ([facility]) Respiratory rate 16 /min 16 /min eCW1 ([facility]) Body temperature 98.3 [degF] 98.3 [degF] eCW1 ( [facility]) Systolic blood pressure 132 mm[Hg] 132 mm[Hg] e CW1 ([facility]) Diastolic blood pressure 80 mm[Hg] 80 mm[Hg] eCW1 ([facility]) Body weight 146 [lb_av] 146 [lb_av] eCW1 ([facility]) Body height 62 [in_i] 62 [in_i] eCW1 ([facility]) Body mass index (BMI) [Ratio] 26.70 kg/m2 26.70 kg/m2 eCW1 ([facility]) Heart rate 84 /min 84 /min eCW1 ([facility]) Respiratory rate 18 /min 18 /min eCW1 ([facility]) Body temperature 98.7 [degF] 98.7 [degF] eCW1 ( [facility]) Systolic blood pressure 130 mm[Hg] 130 mm[Hg] e CW1 ([facility]) Diastolic blood pressure 82 mm[Hg] 82 mm[Hg] eCW1 ([facility]) Body weight 154.4 [lb_av] 154.4 [lb_av] eCW1 ([facility]) Body height 62 [in_i] 62 [in_i] eCW1 ([facility]) Body mass index (BMI) [Ratio] 28.24 kg/m2 28.24 kg/m2 eCW1 ([facility]) Heart rate 94 /min 94 /min eCW1 ([facility]) Respiratory rate 17 /min 17 /min eCW1 ([facility]) Body temperature 97.3 [degF] 97.3 [degF] eCW1 ( [facility]) Systolic blood pressure 124 mm[Hg] 124 mm[Hg] e CW1 ([facility]) Diastolic blood pressure 84 mm[Hg] 84 mm[Hg] eCW1 ([facility]) Diastolic blood pressure 86 mm[Hg] 86 mm[Hg] eCW1 ([facility]) Systolic blood pressure 130 mm[Hg] 130 mm[Hg] e CW1 ([facility]) Body temperature 97.7 [degF] 97.7 [degF] eCW1 ( [facility]) Respiratory rate 17 /min 17 /min eCW1 ([facility]) Heart rate 102 /min 102 /min eCW1 ([facility]) Body mass index (BMI) [Ratio] 27.98 kg/m2 27.98 kg/m2 eCW1 ([facility]) Body height 62 [in_i] 62 [in_i] eCW1 ([facility]) Body weight 153 [lb_av] 153 [lb_av] eCW1 ([facility]) Patient Treatment Plan of Care Planned Activity Planned Date Details Description Data Source (s) Acetaminophen 325 MG / Hydrocodone Bitartrate 7.5 MG O ral Tablet 04/16/2021 12:00:00 AM EDT eCW1 ([facility]) Alprazolam 1 MG Oral Tablet 04/07/2021 12:00:00 AM EDT eCW1 ([facility]) Alprazolam 1 MG Oral Tablet 04/07/2021 12:00:00 AM EDT eCW1 ([facility]) Acetaminophen 325 MG / Hydrocodone Bitartrate 7.5 MG O ral Tablet 03/23/2021 12:00:00 AM EDT eCW1 ([facility]) Acetaminophen 325 MG / Hydrocodone Bitartrate 7.5 MG O ral Tablet 03/23/2021 12:00:00 AM EDT eCW1 ([facility]) Acetaminophen 325 MG / Hydrocodone Bitartrate 7.5 MG O ral Tablet 03/23/2021 12:00:00 AM EDT eCW1 ([facility]) Acetaminophen 325 MG / Hydrocodone Bitartrate 7.5 MG O ral Tablet 03/23/2021 12:00:00 AM EDT eCW1 ([facility]) Alprazolam 1 MG Oral Tablet 03/13/2021 12:00:00 AM EDT eCW1 ([facility]) Alprazolam 1 MG Oral Tablet 03/13/2021 12:00:00 AM EDT eCW1 ([facility]) Alprazolam 1 MG Oral Tablet 03/13/2021 12:00:00 AM EDT eCW1 ([facility]) Alprazolam 1 MG Oral Tablet 03/13/2021 12:00:00 AM EDT eCW1 ([facility]) Acetaminophen 325 MG / Hydrocodone Bitartrate 7.5 MG O ral Tablet 2021 12:00:00 AM EDT eCW1 ([facility]) Acetaminophen 325 MG / Hydrocodone Bitartrate 7.5 MG O ral Tablet 2021 12:00:00 AM EDT eCW1 ([facility]) Alprazolam 1 MG Oral Tablet 02/13/2021 12:00:00 AM EDT eCW1 ([facility]) Alprazolam 1 MG Oral Tablet 02/13/2021 12:00:00 AM EDT eCW1 ([facility]) Alprazolam 1 MG Oral Tablet 02/13/2021 12:00:00 AM EDT eCW1 ([facility]) Alprazolam 1 MG Oral Tablet 02/13/2021 12:00:00 AM EDT eCW1 ([facility]) Alprazolam 1 MG Oral Tablet 02/13/2021 12:00:00 AM EDT eCW1 ([facility]) PARoxetine HCl 10 MG 02/06/2021 12:00:00 AM EDT eCW1 ([facility]) PARoxetine HCl 10 MG 02/06/2021 12:00:00 AM EDT eCW1 ([facility]) PARoxetine HCl 10 MG 02/06/2021 12:00:00 AM EDT eCW1 ([facility]) PARoxetine HCl 10 MG 02/06/2021 12:00:00 AM EDT eCW1 ([facility]) PARoxetine HCl 10 MG 02/06/2021 12:00:00 AM EDT eCW1 ([facility]) Acetaminophen 325 MG / Hydrocodone Bitartrate 7.5 MG O ral Tablet 01/23/2021 12:00:00 AM EDT eCW1 ([facility]) Acetaminophen 325 MG / Hydrocodone Bitartrate 7.5 MG O ral Tablet 12/28/2020 12:00:00 AM EDT eCW1 ([facility]) Acetaminophen 325 MG / Hydrocodone Bitartrate 7.5 MG O ral Tablet 12/28/2020 12:00:00 AM EDT eCW1 ([facility]) Acetaminophen 325 MG / Hydrocodone Bitartrate 7.5 MG O ral Tablet 11/30/2020 12:00:00 AM EDT eCW1 ([facility]) Acetaminophen 325 MG / Hydrocodone Bitartrate 7.5 MG O ral Tablet 11/30/2020 12:00:00 AM EDT eCW1 ([facility]) Acetaminophen 325 MG / Hydrocodone Bitartrate 7.5 MG O ral Tablet 11/30/2020 12:00:00 AM EDT eCW1 ([facility]) Acetaminophen 325 MG / Hydrocodone Bitartrate 7.5 MG O ral Tablet 10/31/2020 12:00:00 AM EDT eCW1 ([facility]) Acetaminophen 325 MG / Hydrocodone Bitartrate 7.5 MG O ral Tablet 10/31/2020 12:00:00 AM EDT eCW1 ([facility]) Acetaminophen 325 MG / Hydrocodone Bitartrate 7.5 MG O ral Tablet 10/31/2020 12:00:00 AM EDT eCW1 ([facility]) Acetaminophen 325 MG / Hydrocodone Bitartrate 7.5 MG O ral Tablet 10/31/2020 12:00:00 AM EDT eCW1 ([facility]) Acetaminophen 325 MG / Hydrocodone Bitartrate 7.5 MG O ral Tablet 10/31/2020 12:00:00 AM EDT eCW1 ([facility]) Lisinopril 5 MG Oral Tablet 10/25/2020 12:00:00 AM EDT eCW1 ([facility]) Lisinopril 5 MG Oral Tablet 10/25/2020 12:00:00 AM EDT eCW1 ([facility]) Lisinopril 5 MG Oral Tablet 10/25/2020 12:00:00 AM EDT eCW1 ([facility]) Lisinopril 5 MG Oral Tablet 10/25/2020 12:00:00 AM EDT eCW1 ([facility]) Lisinopril 5 MG Oral Tablet 10/25/2020 12:00:00 AM EDT eCW1 ([facility]) Lisinopril 5 MG Oral Tablet 10/25/2020 12:00:00 AM EDT eCW1 ([facility]) Lisinopril 5 MG Oral Tablet 10/25/2020 12:00:00 AM EDT eCW1 ([facility]) Acetaminophen 325 MG / Hydrocodone Bitartrate 7.5 MG O ral Tablet 10/05/2020 12:00:00 AM EDT eCW1 ([facility]) Acetaminophen 325 MG / Hydrocodone Bitartrate 7.5 MG O ral Tablet 10/05/2020 12:00:00 AM EDT eCW1 ([facility]) Acetaminophen 325 MG / Hydrocodone Bitartrate 7.5 MG O ral Tablet 10/05/2020 12:00:00 AM EDT eCW1 ([facility]) Acetaminophen 325 MG / Hydrocodone Bitartrate 7.5 MG O ral Tablet 10/05/2020 12:00:00 AM EDT eCW1 ([facility]) Acetaminophen 325 MG / Hydrocodone Bitartrate 7.5 MG O ral Tablet 10/05/2020 12:00:00 AM EDT eCW1 ([facility]) Acetaminophen 325 MG / Hydrocodone Bitartrate 7.5 MG O ral Tablet 10/05/2020 12:00:00 AM EDT eCW1 ([facility]) Acetaminophen 325 MG / Hydrocodone Bitartrate 7.5 MG O ral Tablet 09/07/2020 12:00:00 AM EST eCW1 ([facility]) Acetaminophen 325 MG / Hydrocodone Bitartrate 7.5 MG O ral Tablet 09/07/2020 12:00:00 AM EST eCW1 ([facility]) Acetaminophen 325 MG / Hydrocodone Bitartrate 7.5 MG O ral Tablet 09/07/2020 12:00:00 AM EST eCW1 ([facility]) BD Pen Needle Mini U/F 31G X 5 MM 09/01/2020 12:00:00 AM EST eCW1 ([facility]) Basaglar KwikPen 100 UNIT/ML 09/01/2020 12:00:00 AM EST eCW1 ([facility]) Basaglar KwikPen 100 UNIT/ML 09/01/2020 12:00:00 AM EST eCW1 ([facility]) BD Pen Needle Mini U/F 31G X 5 MM 09/01/2020 12:00:00 AM EST eCW1 ([facility]) Basaglar KwikPen 100 UNIT/ML 09/01/2020 12:00:00 AM EST eCW1 ([facility]) BD Pen Needle Mini U/F 31G X 5 MM 09/01/2020 12:00:00 AM EST eCW1 ([facility]) Basaglar KwikPen 100 UNIT/ML 09/01/2020 12:00:00 AM EST eCW1 ([facility]) BD Pen Needle Mini U/F 31G X 5 MM 09/01/2020 12:00:00 AM EST eCW1 ([facility]) Basaglar KwikPen 100 UNIT/ML 09/01/2020 12:00:00 AM EST eCW1 ([facility]) BD Pen Needle Mini U/F 31G X 5 MM 09/01/2020 12:00:00 AM EST eCW1 ([facility]) BD Pen Needle Mini U/F 31G X 5 MM 09/01/2020 12:00:00 AM EST eCW1 ([facility]) Basaglar KwikPen 100 UNIT/ML 09/01/2020 12:00:00 AM EST eCW1 ([facility]) BD Pen Needle Mini U/F 31G X 5 MM 09/01/2020 12:00:00 AM EST eCW1 ([facility]) Basaglar KwikPen 100 UNIT/ML 09/01/2020 12:00:00 AM EST eCW1 ([facility]) BD Pen Needle Mini U/F 31G X 5 MM 09/01/2020 12:00:00 AM EST eCW1 ([facility]) Fluconazole 150 MG Oral Tablet 09/01/2020 12:00:00 AM EST eCW1 ([facility]) Basaglar KwikPen 100 UNIT/ML 09/01/2020 12:00:00 AM EST eCW1 ([facility]) BD Pen Needle Mini U/F 31G X 5 MM 09/01/2020 12:00:00 AM EST eCW1 ([facility]) Fluconazole 150 MG Oral Tablet 09/01/2020 12:00:00 AM EST eCW1 ([facility]) Basaglar KwikPen 100 UNIT/ML 09/01/2020 12:00:00 AM EST eCW1 ([facility]) BD Pen Needle Mini U/F 31G X 5 MM 09/01/2020 12:00:00 AM EST eCW1 ([facility]) Fluconazole 150 MG Oral Tablet 09/01/2020 12:00:00 AM EST eCW1 ([facility]) Basaglar KwikPen 100 UNIT/ML 09/01/2020 12:00:00 AM EST eCW1 ([facility]) Acetaminophen 325 MG / Hydrocodone Bitartrate 7.5 MG O ral Tablet 08/06/2020 12:00:00 AM EST eCW1 ([facility]) Acetaminophen 325 MG / Hydrocodone Bitartrate 7.5 MG O ral Tablet 08/06/2020 12:00:00 AM EST eCW1 ([facility]) Acetaminophen 325 MG / Hydrocodone Bitartrate 7.5 MG O ral Tablet 08/06/2020 12:00:00 AM EST eCW1 ([facility]) pioglitazone 15 MG Oral Tablet 07/18/2020 12:00:00 AM EST eCW1 ([facility]) Fluconazole 150 MG Oral Tablet 07/18/2020 12:00:00 AM EST eCW1 ([facility]) pioglitazone 15 MG Oral Tablet 07/18/2020 12:00:00 AM EST eCW1 ([facility]) Fluconazole 150 MG Oral Tablet 07/18/2020 12:00:00 AM EST eCW1 ([facility]) Fluconazole 150 MG Oral Tablet 07/18/2020 12:00:00 AM EST eCW1 ([facility]) pioglitazone 15 MG Oral Tablet 07/18/2020 12:00:00 AM EST eCW1 ([facility]) pioglitazone 15 MG Oral Tablet 07/18/2020 12:00:00 AM EST eCW1 ([facility]) Fluconazole 150 MG Oral Tablet 07/18/2020 12:00:00 AM EST eCW1 ([facility]) Acetaminophen 325 MG / Hydrocodone Bitartrate 7.5 MG O ral Tablet 07/07/2020 12:00:00 AM EST eCW1 ([facility]) Acetaminophen 325 MG / Hydrocodone Bitartrate 7.5 MG O ral Tablet 07/07/2020 12:00:00 AM EST eCW1 ([facility]) 24 HR Metformin hydrochloride 500 MG Extended Release Oral Tablet 06/26/2020 12:00:00 AM EST eCW1 ([facility]) 24 HR Metformin hydrochloride 500 MG Extended Release Oral Tablet 06/26/2020 12:00:00 AM EST eCW1 ([facility]) 24 HR Metformin hydrochloride 500 MG Extended Release Oral Tablet 06/26/2020 12:00:00 AM EST eCW1 ([facility]) 24 HR Metformin hydrochloride 500 MG Extended Release Oral Tablet 06/26/2020 12:00:00 AM EST eCW1 ([facility])
[2021-04-23] MEDS ORDERED: PROMETHAZINE INJ 25 MG/ML VIAL (J2550) IV ONE (18:45)
[2021-04-23] MEDS ORDERED: cefTRIAXone SOD 1 GM in D5W MINI-BAG PLUS 50 ML IV ONE (18:50)
--- NOTE | 2021-04-23 18:54 | REPVR ---
PROCEDURE INFORMATION: Exam: CT Abdomen And Pelvis With Contrast Exam date and time: 04/23/2021 6:17 PM Age: 41 years old Clinical indication: Abdominal pain; Flank; Right; Additional info: Right flank pain, eval for pyelo TECHNIQUE: Imaging protocol: Computed tomography of the abdomen and pelvis with contrast. Axial, coronal and sagittal reformatted images were created and reviewed. Radiation optimization: All CT scans at this facility use at least one of these dose optimization techniques: automated exposure control; mA and/or kV adjustment per patient size (includes targeted exams where dose is matched to clinical indication); or iterative reconstruction. Contrast material: ISOVUE 370; Contrast volume: 100 ml; Contrast route: INTRAVENOUS (IV); COMPARISON: CT ABD/PEL W/IV CONTRAST ONLY 05/25/2020 12:36 PM FINDINGS: Diaphragm: Small hiatal hernia. Liver: Unremarkable. Gallbladder and bile ducts: Status post cholecystectomy. No biliary ductal dilatation. Pancreas: Unremarkable. Spleen: Unremarkable. Adrenal glands: Normal. No mass. Kidneys and ureters: Mild right renal cortical scarring. No mass. No radiodense calculi. No hydronephrosis. Stomach and bowel: Moderate amount of retained stool in the colon. No obstruction. No bowel wall thickening. No pneumatosis. Appendix: Normal. Intraperitoneal space: No free fluid. No organized fluid collection. No free air. Vasculature: Unremarkable. No aneurysm. Lymph nodes: No pathologically enlarged lymph nodes. Urinary bladder: Unremarkable as visualized. Reproductive: Unremarkable. Bones/joints: No acute osseous abnormality. Soft tissues: Unremarkable. IMPRESSION: 1. No CT evidence of acute intra-abdominal or pelvic pathology. 2. Additional findings, as above. Electronically signed by: Héctor Blount On 04/23/2021 18:54:08 PM
[2021-04-23] MEDS ORDERED: MAALOX 30 ML SUSP *UDC PO PRN (20:30)
[2021-04-23] MEDS ORDERED: ONDANSETRON 4MG/2ML VIAL IV PRN (20:30)
[2021-04-23] MEDS: NS 1,000 ML IV SCH (20:30)
[2021-04-23] MEDS ORDERED: KETOROLAC 30 MG/ML 1ML VIAL IV PRN (20:30)
[2021-04-23] MEDS ORDERED: ACETAMINOPHEN TAB 650MG DOSE (2X325MG) PO PRN (20:30)
[2021-04-23] MEDS ORDERED: PROAAER10 INH (20:31)
[2021-04-23] MEDS ORDERED: PARO10TA3 PO (20:31)
[2021-04-23] MEDS ORDERED: ONDA4TAB6 PO (20:31)
[2021-04-23] MEDS ORDERED: HOME MED LIST COMPLETE! XX SCH (20:35)
--- NOTE | 2021-04-23 20:37 | HPEPDOC ---
[facility] Medical History & Physical Date of Admission Apr 23, 2021 Date of Service: Apr 23, 2021 Primary Care Physician: Kumar Diaz MD Attending Physician: ALESSANDRO AGUILAR MD History and Physical TIME OF SERVICE 905PM CHIEF COMPLAINT: back pain HISTORY OF PRESENT ILLNESS: a 41 yr old F presented w c/o severe right sided flank pain that is different from her chronic lower back pain and associated with bilious vomiting, fevers, chills, urinating frequently and chest pain which she attributes to her anxiety. She denies having lower abdominal pain or pain with urination. ROS: 10 point ROS neg except as listed in HPI PAST MEDICAL/SURGICAL HISTORY: DM1, Anxiety/ Depression, Migraines, Chronic hip and lower back pain w chronic opiate use, Class 1 obesity, Cholecystectomy SOCIAL HISTORY: + tobacco / + alcohol socially / + THC FAMILY HISTORY: unknown by patient ALLERGIES: Please see below. HOME MEDICATIONS: Please see below. PHYSICAL EXAMINATION: Vital Signs Date Time Temp Pulse Resp B/P (MAP) Pulse Ox O2 Delivery O2 Flow Rate FiO2 04/23/21 15:40 98.8 69 22 96 Room Air GENERAL APPEARANCE: well nourished and developed/ very anxious and teary HEENT: mild conjunctival injection from crying CARDIOVASCULAR: RRR/NMRG LUNGS: CTAB on RA ABDOMEN: flat / soft & NT w palpation MUSCULOSKELETAL: gait normal / MELISSA x 4 extremities INTEGUMENT: slightly flushed and diaphoretic NEUROLOGICAL: CN 2-12 grossly intact /speech not dysarthric PSYCHIATRIC: A&O x 3 /able to understand and follow all commands LABORATORY DATA: Immature Granulocyte % (Auto) 0.4, Neutrophils (%) (Auto) 85.4H, Lymphocytes (%) (Auto) 10.1L, Monocytes (%) (Auto) 3.1, Eosinophils (%) (Auto) 0.5, Basophils (%) (Auto) 0.5, Neutrophils # (Auto) 17.9H, Lymphocytes # (Auto) 2.1, Monocytes # (Auto) 0.6, Eosinophils # (Auto) 0.1, Basophils # (Auto) 0.1, Nucleated Red Blood Cells % (auto) 0.0, Urine Color RICHELLE, Urine Appearance CLOUDYH, Urine pH 5.0, Urine Specific [place] 1.023, Urine Protein 2+H, Urine Glucose (UA) 1+H, Urine Ketones 1+H, Urine Blood 1+H, Urine Nitrite POSITIVEH, Urine Bilirubin NEGATIVE, Urine Urobilinogen 0.2, Urine Leukocyte Esterase 2+H, Urine WBC (Auto) 141H, Urine RBC (Auto) 8H, Urine Hyaline Casts (Auto) 0, Urine Bacteria (Auto) 1+H, Urine Squamous Epithelial Cells 17, Urine Mucus (Auto) SMALL, Urine Sperm (Auto) , Total Bilirubin 1.0, Direct Bilirubin 0.2, Aspartate Amino Transf (AST/SGOT) 13, Alanine Aminotransferase (ALT/SGPT) 23, Alkaline Phosphatase 95, Total Protein 8.4H, Albumin 4.8, Albumin/Globulin Ratio 1.3, Lipase 51L Urine Opiates Screen POSITIVEH, Urine Methadone Screen NEGATIVE, Urine Barbiturates Screen NEGATIVE, Urine Phencyclidine Screen NEGATIVE, Urine Amphetamines Screen NEGATIVE, Urine Benzodiazepines Screen NEGATIVE, Urine Cocaine Metabolite Screen NEGATIVE, Urine Cannabinoids Screen POSITIVEH POC Lactate (Misc Panel) 3.09*H POC Glucose (Misc Panel) 209H, POC Sodium (Misc Panel) 139, POC Potassium (Misc Panel) 4.1, POC Chloride (Misc Panel) 105, POC Total CO2 (Misc Panel) 18.0L, POC Blood Urea Nitrogen (Misc Panel 11, POC Ionized Calcium (Misc Panel) 4.5, POC Creatinine (Misc Panel) 0.7, POC Hematocrit (Misc Panel) 54.0H IMAGING: CT abd/pelvis "IMPRESSION: 1. No CT evidence of acute intra-abdominal or pelvic pathology. 2. Additional findings, as above." MICROBIOLOGY: Influenza panel pending ASSESSMENT: is a 41 yr old w a hx of DM1, Anxiety/ Depression, Migraines, Class 1 obesity & Chronic back pain w chronic opiate use who is admitted for sepsis 2/2 pyelonephritis. PLAN: 1. Sepsis 2/2 pyelonephritis -Her main symptoms are vomiting, new right mid back pain and frequent urination -Her SIRS criteria include tachypnea, leucocytosis -She also has lactic acidosis Plan: admit to medical floor / telemetry / ceftriaxone pending UCx and blood cx / IVF/ Acetaminophen PRN for fever / target MAP at of least 65 to 70 / f/u Is and Os with target UOP of at least 0.5 ml/kg/H / f/u FSBS w target serum glucose 140-180 while acutely ill / Zofran for vomiting & Toradol for pain 2. Erythrocytosis likely 2/2 hemoconcentration Plan: IVF 3. DM1 Plan: f/u FSBS / hypoglycemia protocol / sliding scale insulin / hold oral anti- glycemic / f/u A1C (target A1C is <7 to 6.5%) /decrease long acting insulin from 28 to 10 units daily for now/ her PCP may consider referral to the [facility] to switch the patient from basal bolus injection to continuous subcutaneous insulin infusion which has been shown to produced small improvements in A1C, improve QOL and reduce episodes of severe hypoglycemia 4. Anxiety Depression Plan: resume Paroxetine & alprazolam 5. Chronic back pain Plan: resume home hydrocodone w acetaminophen 6. Migraines Plan: resume sumatriptan 7. Tobacco & THC abuse Plan: smoking cessation education 8. Chronic hip and lower back pain Plan: IV morphine and Toradol until she is able to tolerate PO 9. Class 1 Obesity complicates care DVT Px w SCDs (she is ambulator and her Mayra score is low) Dispo: home after at least 2 midnight's stay Home Medications Scheduled Insulin Glargine,Hum.rec.anlog (Basaglar Kwikpen U-100) 100 Unit/1 Ml Insuln.pen, 28 UNITS IM DAILY Paroxetine HCl (Paroxetine) 10 Mg Tablet, 10 MG PO DAILY Scheduled PRN Albuterol Sulfate (Proair Hfa) 8.5 Gm Hfa.aer.ad, 2 PUFF INH Q6H PRN for SOB/WHEEZING Alprazolam (Alprazolam) 1 Mg Tab, 1 MG PO BID PRN for ANXIETY Hydrocodone/Acetaminophen (Hydrocodone-Acetamin 7.5-325) 1 Each Tablet, 1 TAB PO QID PRN for PAIN Ondansetron (Ondansetron Odt) 4 Mg Tab.rapdis, 4 MG PO Q6-8HP PRN for nausea/vomiting Sumatriptan Succinate (Sumatriptan Succinate) 100 Mg Tablet, 100 MG PO DAILY PRN for MIGRAINE may repeat in 2 hours; do not exceed 200 mg in 24 hours Allergies Coded Allergies: No Known Allergies (Unverified , 09/25/14) A-FIB/CHADSVASC A-FIB History Current/History of A-Fib/PAF?: No Current PO Anticoag Therapy: No ALESSANDRO AGUILAR MD Apr 23, 2021 20:37
[2021-04-23] MEDS ORDERED: GLUCOSE 4GM CHEW TABLET PO PRN (20:40)
[2021-04-23] MEDS ORDERED: GLUCAGON INJ 1MG VIAL SC PRN (20:40)
[2021-04-23] MEDS ORDERED: DEXTROSE 50% 50 ML SYRINGE IV PRN (20:40)
--- OUTSIDE RECORDS SUMMARY | 2021-04-23 20:43 | CCD ---
Author Author [facility] Organization [facility] Address Unknown Phone Unavailable Care Team Providers Care Sales And Marketing Associate Name Role Phone Edenilson Hopper MD Unavailable [...] Unavailable Unavailable Edenilson Hopper MD Unavailable Unavailable [place] MD Unavailable Unavailable [place], Edenilson Walters MD Unavailable Unavailable Ruchi, Edenilson Walters MD Unavailable Unavailable [place], Edenilson Walters MD Unavailable Unavailable Ruchi, Edenilson Walters MD Unavailable Unavailable [place], Edenilson Walters MD Unavailable Unavailable Ruchi, Edenilson Walters MD Unavailable Unavailable [place], Edenilson Walters MD Unavailable Unavailable [place], Edenilson Walters MD Unavailable Unavailable [place], Edenilson Walters MD Unavailable Unavailable Ruchi, Edenilson Walters MD Unavailable Unavailable Ruchi, Edenilson Walters MD Unavailable Unavailable Ruchi, Edenilson Walters MD Unavailable Unavailable [place], Edenilson Walters MD Unavailable Unavailable [place], Edenilson Walters MD Unavailable Unavailable Ruchi, Edenilson Walters MD Unavailable Unavailable [place], Edenilson Walters MD Unavailable Unavailable Ruchi, Edenilson Walters MD Unavailable Unavailable [place], Edenilson Walters MD Unavailable Unavailable Ruchi, Edenilson Walters MD Unavailable Unavailable Juan Alberto, C Nicholas PA Unavailable Unavailable [place], C Nicholas PA Unavailable Unavailable Juan Alberto, C Nicholas PA Unavailable Unavailable Juan Alberto, C Nicholas PA Unavailable Unavailable Juan Alberto, C Nicholas PA Unavailable Unavailable Juan Alberto, C Nicholas PA Unavailable Unavailable Juan Alberto, C Nicholas PA Unavailable Unavailable [place], C Nicholas PA Unavailable Unavailable [place], C Nicholas PA Unavailable Unavailable Juan Alberto, C Nicholas PA Unavailable Unavailable Juan Alberto, C Nicholas PA Unavailable Unavailable [place], C Nicholas PA Unavailable Unavailable Juan Alberto, C Nicholas PA Unavailable Unavailable Juan Alberto, C Nicholas PA Unavailable Unavailable [place], C Nicholas PA Unavailable Unavailable Isaiah Navarrete [...] is protected by Article 27-F of the [facility] Public Health law. If you continue you may have access to information: Regarding HIV / AIDS; Provided by facilities licensed or operated by the [facility] Office of Mental Health; or Provided by the [facility] Office for People With Developmental Disabilities. If such information is present, then the following [facility] mandated warning applies: This information has been [...] Date Indications Data Source(s ) Unknown [address] [facility] [place] [address] 04/15/2021 12:00:00 AM EDT eCW1 ([facility]) Outpatient Attender: Nicholas GONCALVES 2020 02:44:56 PM EDT - 04/13/2021 04:33:42 PM EDT Doc[facility]ap ([facility] ) Unknown [address] [facility] [place] [address] 04/07/2021 12:00:00 AM EDT eCW1 ([facility]) Unknown [address] [facility] [place] [address] 03/25/2021 12:00:00 AM EDT eCW1 ([facility]) Unknown [address] [facility] [place] [address] 03/24/2021 12:00:00 AM EDT eCW1 ([facility]) Unknown [address] [facility] [place] [address] 03/17/2021 12:00:00 AM EDT eCW1 [facility] Unknown [address] [facility] [place] [address] 03/10/2021 12:00:00 AM EDT eCW1 ([facility]) Unknown [address] [facility] [place] [address] 02/19/2021 12:00:00 AM EDT eCW1 ([facility]) Unknown [address] [facility] [place] [address] 02/13/2021 12:00:00 AM EDT eCW1 ([facility]) Unknown [address] [facility] [place] [address] 02/13/2021 12:00:00 AM EDT eCW1 ([facility]) Unknown [address] [facility] [place] [address] 02/09/2021 12:00:00 AM EDT eCW1 ([facility]) Outpatient [address] [facility] [place] [address] 02/06/2021 12:00:00 AM EDT eCW1 ([facility]) Unknown [address] [facility] [place] [address] 01/20/2021 12:00:00 AM EDT eCW1 ([facility]) Unknown [address] [facility] [place] [address] 01/14/2021 12:00:00 AM EDT eCW1 ([facility]) Unknown [address] [facility] [place] [address] 12/25/2020 12:00:00 AM EDT eCW1 ([facility]) Unknown [address] [facility] [place] [address] 12/15/2020 12:00:00 AM EDT eCW1 ([facility]) Unknown [address] [facility] [place] [address] 11/27/2020 12:00:00 AM EDT eCW1 ([facility]) Outpatient [address] [facility] [place] [address] 11/24/2020 12:00:00 AM EDT eCW1 ([facility]) Unknown [address] [facility] [place] [address] 11/24/2020 12:00:00 AM EDT eCW1 ([facility]) Unknown [address] [facility] [place] [address] 11/18/2020 12:00:00 AM EDT eCW1 ([facility]) Unknown [address] [facility] [place] [address] 10/30/2020 12:00:00 AM EDT eCW1 [facility] Unknown [address] [facility] [place] [address] 10/30/2020 12:00:00 AM EDT eCW1 ([facility]) Unknown [address] [facility] [place] [address] 10/27/2020 12:00:00 AM EDT eCW1 ([facility] Unknown [address] [facility] [place] [address] 10/26/2020 12:00:00 AM EDT eCW1 ([facility]) Unknown [address] [facility] [place] [address] 10/25/2020 12:00:00 AM EDT [facility]CW1 [facility] [address] [facility] [place] [address] 10/24/2020 12:00:00 AM EDT eCW1 ([facility] Unknown [address] [facility] [place] [address] 10/22/2020 12:00:00 AM EDT eCW1 [facility] Emergency Attender: Isaiah Navarrete MDConsultant: Romeo Hopper MD 10/19/2020 06:44:00 PM EDT - 10/19/2020 10:15:00 PM EDT [facility] Patient discharged. Unknown [address] [facility] [place] [address] 10/19/2020 12:00:00 AM EDT eCW1 ([facility] Unknown [address] [facility] [place] [address] 10/02/2020 12:00:00 AM EDT eCW1 ([facility]) Outpatient [address] [facility] [place] [address] 09/24/2020 12:00:00 AM EDT eCW1 ([facility]) Unknown [address] [facility] [place] [address] 09/19/2020 12:00:00 AM EST eCW1 ([facility]) Unknown [address] [facility] [place] [address] 09/08/2020 12:00:00 AM EST eCW1 ([facility]) Unknown [address] [facility] [place] [address] 09/04/2020 12:00:00 AM EST eCW1 ([facility]) Outpatient [address] [facility] [place] [address] 09/01/2020 12:00:00 AM EST eCW1 ([facility]) Unknown [address] [facility] [place] [address] 08/26/2020 12:00:00 AM EST eCW1 ([facility]) Unknown [address] [facility] [place] [address] 08/21/2020 12:00:00 AM EST eCW1 ([facility]) Unknown [address] [facility] [place] [address] 08/05/2020 12:00:00 AM EST eCW1 ([facility]) Unknown [address] [facility] [place] [address] 07/24/2020 12:00:00 AM EST eCW1 ([facility]) Outpatient [address] [facility] [place] [address] 07/18/2020 12:00:00 AM EST eCW1 ([facility]) Unknown [address] [facility] [place] [address] 07/08/2020 12:00:00 AM EST eCW1 ([facility]) Unknown [address] [facility] [place] [address] 07/07/2020 12:00:00 AM EST eCW1 ([facility]) Unknown [address] [facility] [place] [address] 07/01/2020 12:00:00 AM EST eCW1 ([facility]) Outpatient [address] [facility] [place] [address] 06/26/2020 12:00:00 AM EST eCW1 ([facility]) Outpatient LERAYDC 05/13/2020 10:00:00 AM EST [facility] Outpatient [facility] 05/13/2020 09:51:01 AM EST [facility] Outpatient [facility] 05/13/2020 09:49:00 AM EST [facility] Outpatient [facility] 05/13/2020 09:48:00 AM EST [facility] Outpatient ALL 05/13/2020 08:54:00 AM EST [facility] Outpatient ALL 05/13/2020 08:54:00 AM [facility] Medications Medication Brand Name Start Date Product Form Dose Route Admi nistrative Instructions Pharmacy Instructions Status Indications Reaction Description Data Source(s) Acetaminophen 325 MG / Hydrocodone Ju trate 7.5 MG Oral Tablet HYDROcodone- Acetaminophen 7.5-325 MG HYDROcodone-Acetaminophen 7.5-325 MG 04/16/2021 12:00:00 AM EDT 1.0 {tablet_as_needed} active HYDROcodone- Acetaminophen 7.5-325 MG eCW1 ([facility]) Alprazolam 1 MG Oral Tablet ALPRAZolam 1 MG ALPRAZolam 1 MG 04/07/2021 12:00:00 AM EDT 1.0 {tablet} active ALPRAZolam 1 MG eCW1 ([facility]) Alprazolam 1 MG Oral Tablet ALPRAZolam 1 MG ALPRAZolam 1 MG 04/07/2021 12:00:00 AM EDT 1.0 {tablet} active ALPRAZolam 1 MG eCW1 ([facility]) Acetaminophen 325 MG / Hydrocodone Ju trate 7.5 MG Oral Tablet HYDROcodone- Acetaminophen 7.5-325 MG HYDROcodone-Acetaminophen 7.5-325 MG 03/23/2021 12:00:00 AM EDT 1.0 {tablet_as_needed} active HYDROcodone- Acetaminophen 7.5-325 MG eCW1 ([facility]) Acetaminophen 325 MG / Hydrocodone Ju trate 7.5 MG Oral Tablet HYDROcodone- Acetaminophen 7.5-325 MG HYDROcodone-Acetaminophen 7.5-325 MG 03/23/2021 12:00:00 AM EDT 1.0 {tablet_as_needed} active HYDROcodone- Acetaminophen 7.5-325 MG eCW1 ([facility]) Acetaminophen 325 MG / Hydrocodone Ju trate 7.5 MG Oral Tablet HYDROcodone- Acetaminophen 7.5-325 MG HYDROcodone-Acetaminophen 7.5-325 MG 03/23/2021 12:00:00 AM EDT 1.0 {tablet_as_needed} active HYDROcodone- Acetaminophen 7.5-325 MG eCW1 ([facility]) Acetaminophen 325 MG / Hydrocodone Ju trate 7.5 MG Oral Tablet HYDROcodone- Acetaminophen 7.5-325 MG HYDROcodone-Acetaminophen 7.5-325 MG 03/23/2021 12:00:00 AM EDT 1.0 {tablet_as_needed} active HYDROcodone- Acetaminophen 7.5-325 MG eCW1 ([facility]) Alprazolam 1 MG Oral Tablet ALPRAZolam 1 MG ALPRAZolam 1 MG 03/13/2021 12:00:00 AM EDT 1.0 {tablet} active ALPRAZolam 1 MG eCW1 ([facility]) Alprazolam 1 MG Oral Tablet ALPRAZolam 1 MG ALPRAZolam 1 MG 03/13/2021 12:00:00 AM EDT 1.0 {tablet} active ALPRAZolam 1 MG eCW1 ([facility]) Alprazolam 1 MG Oral Tablet ALPRAZolam 1 MG ALPRAZolam 1 MG 03/13/2021 12:00:00 AM EDT 1.0 {tablet} active ALPRAZolam 1 MG eCW1 ([facility]) Alprazolam 1 MG Oral Tablet ALPRAZolam 1 MG ALPRAZolam 1 MG 03/13/2021 12:00:00 AM EDT 1.0 {tablet} active ALPRAZolam 1 MG eCW1 ([facility]) Acetaminophen 325 MG / Hydrocodone Ju trate 7.5 MG Oral Tablet HYDROcodone- Acetaminophen 7.5-325 MG HYDROcodone-Acetaminophen 7.5-325 MG 2021 12:00:00 AM EDT 1.0 {tablet_as_needed} active HYDROcodone- Acetaminophen 7.5-325 MG eCW1 ([facility]) Acetaminophen 325 MG / Hydrocodone Ju trate 7.5 MG Oral Tablet HYDROcodone- Acetaminophen 7.5-325 MG HYDROcodone-Acetaminophen 7.5-325 MG 2021 12:00:00 AM EDT 1.0 {tablet_as_needed} active HYDROcodone- Acetaminophen 7.5-325 MG eCW1 ([facility]) Alprazolam 1 MG Oral Tablet ALPRAZolam 1 MG ALPRAZolam 1 MG 02/13/2021 12:00:00 AM EDT 1.0 {tablet} active ALPRAZolam 1 MG eCW1 ([facility]) Alprazolam 1 MG Oral Tablet ALPRAZolam 1 MG ALPRAZolam 1 MG 02/13/2021 12:00:00 AM EDT 1.0 {tablet} active ALPRAZolam 1 MG eCW1 ([facility]) Alprazolam 1 MG Oral Tablet ALPRAZolam 1 MG ALPRAZolam 1 MG 02/13/2021 12:00:00 AM EDT 1.0 {tablet} active ALPRAZolam 1 MG eCW1 ([facility]) Alprazolam 1 MG Oral Tablet ALPRAZolam 1 MG ALPRAZolam 1 MG 02/13/2021 12:00:00 AM EDT 1.0 {tablet} active ALPRAZolam 1 MG eCW1 ([facility]) Alprazolam 1 MG Oral Tablet ALPRAZolam 1 MG ALPRAZolam 1 MG 02/13/2021 12:00:00 AM EDT 1.0 {tablet} active ALPRAZolam 1 MG eCW1 ([facility]) PARoxetine HCl 10 MG PARoxetine HCl 10 MG 02/06/2021 12:00:00 AM ED T 1.0 {tablet_in_the_morning} active PARoxeti ne HCl 10 MG eCW1 ([facility]) PARoxetine HCl 10 MG PARoxetine HCl 10 MG 02/06/2021 12:00:00 AM ED T 1.0 {tablet_in_the_morning} active PARoxeti ne HCl 10 MG eCW1 ([facility]) PARoxetine HCl 10 MG PARoxetine HCl 10 MG 02/06/2021 12:00:00 AM ED T 1.0 {tablet_in_the_morning} active PARoxeti ne HCl 10 MG eCW1 ([facility]) PARoxetine HCl 10 MG PARoxetine HCl 10 MG 02/06/2021 12:00:00 AM ED T 1.0 {tablet_in_the_morning} active PARoxeti ne HCl 10 MG eCW1 ([facility]) PARoxetine HCl 10 MG PARoxetine HCl 10 MG 02/06/2021 12:00:00 AM ED T 1.0 {tablet_in_the_morning} active PARoxeti ne HCl 10 MG eCW1 ([facility]) Acetaminophen 325 MG / Hydrocodone Ju trate 7.5 MG Oral Tablet HYDROcodone- Acetaminophen 7.5-325 MG HYDROcodone-Acetaminophen 7.5-325 MG 01/23/2021 12:00:00 AM EDT 1.0 {tablet_as_needed} active HYDROcodone- Acetaminophen 7.5-325 MG eCW1 ([facility]) Acetaminophen 325 MG / Hydrocodone Ju trate 7.5 MG Oral Tablet HYDROcodone- Acetaminophen 7.5-325 MG HYDROcodone-Acetaminophen 7.5-325 MG 01/23/2021 12:00:00 AM EDT 1.0 {tablet_as_needed} active HYDROcodone- Acetaminophen 7.5-325 MG eCW1 ([facility]) Acetaminophen 325 MG / Hydrocodone Ju trate 7.5 MG Oral Tablet HYDROcodone- Acetaminophen 7.5-325 MG HYDROcodone-Acetaminophen 7.5-325 MG 01/23/2021 12:00:00 AM EDT 1.0 {tablet_as_needed} active HYDROcodone- Acetaminophen 7.5-325 MG eCW1 ([facility]) Acetaminophen 325 MG / Hydrocodone Ju trate 7.5 MG Oral Tablet HYDROcodone- Acetaminophen 7.5-325 MG HYDROcodone-Acetaminophen 7.5-325 MG 01/23/2021 12:00:00 AM EDT 1.0 {tablet_as_needed} active HYDROcodone- Acetaminophen 7.5-325 MG eCW1 ([facility]) Acetaminophen 325 MG / Hydrocodone Ju trate 7.5 MG Oral Tablet HYDROcodone- Acetaminophen 7.5-325 MG HYDROcodone-Acetaminophen 7.5-325 MG 01/23/2021 12:00:00 AM EDT 1.0 {tablet_as_needed} active HYDROcodone- Acetaminophen 7.5-325 MG eCW1 ([facility]) Acetaminophen 325 MG / Hydrocodone Ju trate 7.5 MG Oral Tablet HYDROcodone- Acetaminophen 7.5-325 MG HYDROcodone-Acetaminophen 7.5-325 MG 12/28/2020 12:00:00 AM EDT 1.0 {tablet_as_needed} active HYDROcodone- Acetaminophen 7.5-325 MG eCW1 ([facility]) Acetaminophen 325 MG / Hydrocodone Ju trate 7.5 MG Oral Tablet HYDROcodone- Acetaminophen 7.5-325 MG HYDROcodone-Acetaminophen 7.5-325 MG 12/28/2020 12:00:00 AM EDT 1.0 {tablet_as_needed} active HYDROcodone- Acetaminophen 7.5-325 MG eCW1 ([facility]) Acetaminophen 325 MG / Hydrocodone Ju trate 7.5 MG Oral Tablet Hydrocodone- Acetaminophen 7.5-325 MG Hydrocodone-Acetaminophen 7.5-325 MG 11/30/2020 12:00:00 AM EDT 1.0 {tablet_as_needed} active Hydrocodone- Acetaminophen 7.5-325 MG eCW1 ([facility]) Acetaminophen 325 MG / Hydrocodone Ju trate 7.5 MG Oral Tablet Hydrocodone- Acetaminophen 7.5-325 MG Hydrocodone-Acetaminophen 7.5-325 MG 11/30/2020 12:00:00 AM EDT 1.0 {tablet_as_needed} active Hydrocodone- Acetaminophen 7.5-325 MG eCW1 ([facility]) Acetaminophen 325 MG / Hydrocodone Ju trate 7.5 MG Oral Tablet Hydrocodone- Acetaminophen 7.5-325 MG Hydrocodone-Acetaminophen 7.5-325 MG 11/30/2020 12:00:00 AM EDT 1.0 {tablet_as_needed} active Hydrocodone- Acetaminophen 7.5-325 MG eCW1 ([facility]) Acetaminophen 325 MG / Hydrocodone Ju trate 7.5 MG Oral Tablet Hydrocodone- Acetaminophen 7.5-325 MG Hydrocodone-Acetaminophen 7.5-325 MG 10/31/2020 12:00:00 AM EDT 1.0 {tablet_as_needed} active Hydrocodone- Acetaminophen 7.5-325 MG eCW1 ([facility]) Acetaminophen 325 MG / Hydrocodone Ju trate 7.5 MG Oral Tablet Hydrocodone- Acetaminophen 7.5-325 MG Hydrocodone-Acetaminophen 7.5-325 MG 10/31/2020 12:00:00 AM EDT 1.0 {tablet_as_needed} active Hydrocodone- Acetaminophen 7.5-325 MG eCW1 ([facility]) Acetaminophen 325 MG / Hydrocodone Ju trate 7.5 MG Oral Tablet Hydrocodone- Acetaminophen 7.5-325 MG Hydrocodone-Acetaminophen 7.5-325 MG 10/31/2020 12:00:00 AM EDT 1.0 {tablet_as_needed} active Hydrocodone- Acetaminophen 7.5-325 MG eCW1 ([facility]) Acetaminophen 325 MG / Hydrocodone Ju trate 7.5 MG Oral Tablet Hydrocodone- Acetaminophen 7.5-325 MG Hydrocodone-Acetaminophen 7.5-325 MG 10/31/2020 12:00:00 AM EDT 1.0 {tablet_as_needed} active Hydrocodone- Acetaminophen 7.5-325 MG eCW1 ([facility]) Acetaminophen 325 MG / Hydrocodone Ju trate 7.5 MG Oral Tablet Hydrocodone- Acetaminophen 7.5-325 MG Hydrocodone-Acetaminophen 7.5-325 MG 10/31/2020 12:00:00 AM EDT 1.0 {tablet_as_needed} active Hydrocodone- Acetaminophen 7.5-325 MG eCW1 ([facility]) Acetaminophen 325 MG / Hydrocodone Ju trate 7.5 MG Oral Tablet Hydrocodone- Acetaminophen 7.5-325 MG Hydrocodone-Acetaminophen 7.5-325 MG 10/31/2020 12:00:00 AM EDT 1.0 {tablet_as_needed} active Hydrocodone- Acetaminophen 7.5-325 MG eCW1 ([facility]) Lisinopril 5 MG Oral Tablet Lisinopril 5 MG 10/25/2020 12:00:00 AM EDT 1.0 {tablet} active Lisinopril 5 MG eCW1 ([facility]) Lisinopril 5 MG Oral Tablet Lisinopril 5 MG 10/25/2020 12:00:00 AM EDT 1.0 {tablet} active Lisinopril 5 MG eCW1 ([facility]) Lisinopril 5 MG Oral Tablet Lisinopril 5 MG 10/25/2020 12:00:00 AM EDT 1.0 {tablet} active Lisinopril 5 MG eCW1 ([facility]) Lisinopril 5 MG Oral Tablet Lisinopril 5 MG 10/25/2020 12:00:00 AM EDT 1.0 {tablet} active Lisinopril 5 MG eCW1 ([facility]) Lisinopril 5 MG Oral Tablet Lisinopril 5 MG 10/25/2020 12:00:00 AM EDT 1.0 {tablet} active Lisinopril 5 MG eCW1 ([facility]) Lisinopril 5 MG Oral Tablet Lisinopril 5 MG 10/25/2020 12:00:00 AM EDT 1.0 {tablet} active Lisinopril 5 MG eCW1 ([facility]) Lisinopril 5 MG Oral Tablet Lisinopril 5 MG 10/25/2020 12:00:00 AM EDT 1.0 {tablet} active Lisinopril 5 MG eCW1 ([facility]) Lisinopril 5 MG Oral Tablet Lisinopril 5 MG 10/25/2020 12:00:00 AM EDT 1.0 {tablet} active Lisinopril 5 MG eCW1 ([facility]) Acetaminophen 325 MG / Hydrocodone Ju trate 7.5 MG Oral Tablet Hydrocodone- Acetaminophen 7.5-325 MG Hydrocodone-Acetaminophen 7.5-325 MG 10/05/2020 12:00:00 AM EDT 1.0 {tablet_as_needed} active Hydrocodone- Acetaminophen 7.5-325 MG eCW1 ([facility]) Acetaminophen 325 MG / Hydrocodone Ju trate 7.5 MG Oral Tablet Hydrocodone- Acetaminophen 7.5-325 MG Hydrocodone-Acetaminophen 7.5-325 MG 10/05/2020 12:00:00 AM EDT 1.0 {tablet_as_needed} active Hydrocodone- Acetaminophen 7.5-325 MG eCW1 ([facility]) Acetaminophen 325 MG / Hydrocodone Ju trate 7.5 MG Oral Tablet Hydrocodone- Acetaminophen 7.5-325 MG Hydrocodone-Acetaminophen 7.5-325 MG 10/05/2020 12:00:00 AM EDT 1.0 {tablet_as_needed} active Hydrocodone- Acetaminophen 7.5-325 MG eCW1 ([facility]) Acetaminophen 325 MG / Hydrocodone Ju trate 7.5 MG Oral Tablet Hydrocodone- Acetaminophen 7.5-325 MG Hydrocodone-Acetaminophen 7.5-325 MG 10/05/2020 12:00:00 AM EDT 1.0 {tablet_as_needed} active Hydrocodone- Acetaminophen 7.5-325 MG eCW1 ([facility]) Acetaminophen 325 MG / Hydrocodone Ju trate 7.5 MG Oral Tablet Hydrocodone- Acetaminophen 7.5-325 MG Hydrocodone-Acetaminophen 7.5-325 MG 10/05/2020 12:00:00 AM EDT 1.0 {tablet_as_needed} active Hydrocodone- Acetaminophen 7.5-325 MG eCW1 ([facility]) Acetaminophen 325 MG / Hydrocodone Ju trate 7.5 MG Oral Tablet Hydrocodone- Acetaminophen 7.5-325 MG Hydrocodone-Acetaminophen 7.5-325 MG 10/05/2020 12:00:00 AM EDT 1.0 {tablet_as_needed} active Hydrocodone- Acetaminophen 7.5-325 MG eCW1 ([facility]) Acetaminophen 325 MG / Hydrocodone Ju trate 7.5 MG Oral Tablet Hydrocodone- Acetaminophen 7.5-325 MG Hydrocodone-Acetaminophen 7.5-325 MG 09/07/2020 12:00:00 AM EST 1.0 {tablet_as_needed} active Hydrocodone- Acetaminophen 7.5-325 MG eCW1 ([facility]) Acetaminophen 325 MG / Hydrocodone Ju trate 7.5 MG Oral Tablet Hydrocodone- Acetaminophen 7.5-325 MG Hydrocodone-Acetaminophen 7.5-325 MG 09/07/2020 12:00:00 AM EST 1.0 {tablet_as_needed} active Hydrocodone- Acetaminophen 7.5-325 MG eCW1 ([facility]) Acetaminophen 325 MG / Hydrocodone Ju trate 7.5 MG Oral Tablet Hydrocodone- Acetaminophen 7.5-325 MG Hydrocodone-Acetaminophen 7.5-325 MG 09/07/2020 12:00:00 AM EST 1.0 {tablet_as_needed} active Hydrocodone- Acetaminophen 7.5-325 MG eCW1 ([facility]) Acetaminophen 325 MG / Hydrocodone Ju trate 7.5 MG Oral Tablet Hydrocodone- Acetaminophen 7.5-325 MG Hydrocodone-Acetaminophen 7.5-325 MG 09/07/2020 12:00:00 AM EST 1.0 {tablet_as_needed} active Hydrocodone- Acetaminophen 7.5-325 MG eCW1 ([facility]) Acetaminophen 325 MG / Hydrocodone Ju trate 7.5 MG Oral Tablet Hydrocodone- Acetaminophen 7.5-325 MG Hydrocodone-Acetaminophen 7.5-325 MG 09/07/2020 12:00:00 AM EST 1.0 {tablet_as_needed} active Hydrocodone- Acetaminophen 7.5-325 MG eCW1 ([facility]) BD Pen Needle Mini U/F 31G X 5 MM BD Pen Needle Mini U/F 31G X 5 MM 09/01/2020 12:00:00 AM EST active BD Pen N eedle Mini U/F 31G X 5 MM eCW1 ([facility]) Basaglar KwikPen 100 UNIT/ML Basaglar KwikPen 100 UNIT/ML 12:00:00 AM EST active Basaglar KwikPen 100 UNIT/ML eCW1 ([facility]) Basaglar KwikPen 100 UNIT/ML Basaglar KwikPen 100 UNIT/ML 12:00:00 AM EST active Basaglar KwikPen 100 UNIT/ML eCW1 ([facility]) BD Pen Needle Mini U/F 31G X 5 MM BD Pen Needle Mini U/F 31G X 5 MM 09/01/2020 12:00:00 AM EST active BD Pen N eedle Mini U/F 31G X 5 MM eCW1 ([facility]) Fluconazole 150 MG Oral Tablet Fluconazole 150 MG 09/01/2020 12:00: 00 AM EST 1.0 {tablet} suspended Fluconazole 150 M G eCW1 ([facility]) Basaglar KwikPen 100 UNIT/ML Basaglar KwikPen 100 UNIT/ML 12:00:00 AM EST active Basaglar KwikPen 100 UNIT/ML eCW1 ([facility]) Fluconazole 150 MG Oral Tablet Fluconazole 150 MG 09/01/2020 12:00: 00 AM EST 1.0 {tablet} suspended Fluconazole 150 M G eCW1 (Formerly [facility]) BD Pen Needle Mini U/F 31G X 5 MM BD Pen Needle Mini U/F 31G X 5 MM 09/01/2020 12:00:00 AM EST active BD Pen N eedle Mini U/F 31G X 5 MM eCW1 (Formerly [facility]) BD Pen Needle Mini U/F 31G X 5 MM BD Pen Needle Mini U/F 31G X 5 MM 09/01/2020 12:00:00 AM EST active BD Pen N eedle Mini U/F 31G X 5 MM eCW1 (Formerly [facility]) Fluconazole 150 MG Oral Tablet Fluconazole 150 MG 09/01/2020 12:00: 00 AM EST 1.0 {tablet} suspended Fluconazole 150 M G eCW1 (Formerly [facility]) Basaglar KwikPen 100 UNIT/ML Basaglar KwikPen 100 UNIT/ML 12:00:00 AM EST active Basaglar KwikPen 100 UNIT/ML eCW1 (Formerly [facility]) Fluconazole 150 MG Oral Tablet Fluconazole 150 MG 09/01/2020 12:00: 00 AM EST 1.0 {tablet} active Fluconazole 150 MG eCW1 ([facility]) Basaglar KwikPen 100 UNIT/ML Basaglar KwikPen 100 UNIT/ML 12:00:00 AM EST active Basaglar KwikPen 100 UNIT/ML eCW1 ([facility]ly [facility]) BD Pen Needle Mini U/F 31G X 5 MM BD Pen Needle Mini U/F 31G X 5 MM 09/01/2020 12:00:00 AM EST active BD Pen N eedle Mini U/F 31G X 5 MM eCW1 (Formerly [facility]) Basaglar KwikPen 100 UNIT/ML Basaglar KwikPen 100 UNIT/ML 12:00:00 AM EST active Basaglar KwikPen 100 UNIT/ML eCW1 ([facility]ly [facility]) Fluconazole 150 MG Oral Tablet Fluconazole 150 MG 09/01/2020 12:00: 00 AM EST 1.0 {tablet} suspended Fluconazole 150 M G eCW1 ([facility]ly [facility]) BD Pen Needle Mini U/F 31G X 5 MM BD Pen Needle Mini U/F 31G X 5 MM 09/01/2020 12:00:00 AM EST active BD Pen N eedle Mini U/F 31G X 5 MM eCW1 ([facility]ly [facility]) Basaglar KwikPen 100 UNIT/ML Basaglar KwikPen 100 UNIT/ML 12:00:00 AM EST active Basaglar KwikPen 100 UNIT/ML eCW1 ([facility]ly [facility]) BD Pen Needle Mini U/F 31G X 5 MM BD Pen Needle Mini U/F 31G X 5 MM 09/01/2020 12:00:00 AM EST active BD Pen N eedle Mini U/F 31G X 5 MM eCW1 ([facility]ly [facility]) Basaglar KwikPen 100 UNIT/ML Basaglar KwikPen 100 UNIT/ML 12:00:00 AM EST active Basaglar KwikPen 100 UNIT/ML eCW1 ([facility]) BD Pen Needle Mini U/F 31G X 5 MM BD Pen Needle Mini U/F 31G X 5 MM 09/01/2020 12:00:00 AM EST active BD Pen N eedle Mini U/F 31G X 5 MM eCW1 ([facility]) BD Pen Needle Mini U/F 31G X 5 MM BD Pen Needle Mini U/F 31G X 5 MM 09/01/2020 12:00:00 AM EST active BD Pen N eedle Mini U/F 31G X 5 MM eCW1 ([facility]) BD Pen Needle Mini U/F 31G X 5 MM BD Pen Needle Mini U/F 31G X 5 MM 09/01/2020 12:00:00 AM EST active BD Pen N eedle Mini U/F 31G X 5 MM eCW1 ([facility]) BD Pen Needle Mini U/F 31G X 5 MM BD Pen Needle Mini U/F 31G X 5 MM 09/01/2020 12:00:00 AM EST active BD Pen N eedle Mini U/F 31G X 5 MM eCW1 ([facility]) Fluconazole 150 MG Oral Tablet Fluconazole 150 MG 09/01/2020 12:00: 00 AM EST 1.0 {tablet} suspended Fluconazole 150 M G eCW1 ([facility]) Fluconazole 150 MG Oral Tablet Fluconazole 150 MG 09/01/2020 12:00: 00 AM EST 1.0 {tablet} suspended Fluconazole 150 M G eCW1 ([facility]) Basaglar KwikPen 100 UNIT/ML Basaglar KwikPen 100 UNIT/ML 12:00:00 AM EST active Basaglar KwikPen 100 UNIT/ML eCW1 ([facility]) Basaglar KwikPen 100 UNIT/ML Basaglar KwikPen 100 UNIT/ML 12:00:00 AM EST active Basaglar KwikPen 100 UNIT/ML eCW1 ([facility]ly [facility]) BD Pen Needle Mini U/F 31G X 5 MM BD Pen Needle Mini U/F 31G X 5 MM 09/01/2020 12:00:00 AM EST active BD Pen N eedle Mini U/F 31G X 5 MM eCW1 ([facility]) Fluconazole 150 MG Oral Tablet Fluconazole 150 MG 09/01/2020 12:00: 00 AM EST 1.0 {tablet} active Fluconazole 150 MG eCW1 ([facility]) BD Pen Needle Mini U/F 31G X 5 MM BD Pen Needle Mini U/F 31G X 5 MM 09/01/2020 12:00:00 AM EST active BD Pen N eedle Mini U/F 31G X 5 MM eCW1 ([facility]) Fluconazole 150 MG Oral Tablet Fluconazole 150 MG 09/01/2020 12:00: 00 AM EST 1.0 {tablet} suspended Fluconazole 150 M G eCW1 ([facility]) BD Pen Needle Mini U/F 31G X 5 MM BD Pen Needle Mini U/F 31G X 5 MM 09/01/2020 12:00:00 AM EST active BD Pen N eedle Mini U/F 31G X 5 MM eCW1 ([facility]) BD Pen Needle Mini U/F 31G X 5 MM BD Pen Needle Mini U/F 31G X 5 MM 09/01/2020 12:00:00 AM EST active BD Pen N eedle Mini U/F 31G X 5 MM eCW1 ([facility]) Fluconazole 150 MG Oral Tablet Fluconazole 150 MG 09/01/2020 12:00: 00 AM EST 1.0 {tablet} suspended Fluconazole 150 M G eCW1 ([facility]) Fluconazole 150 MG Oral Tablet Fluconazole 150 MG 09/01/2020 12:00: 00 AM EST 1.0 {tablet} suspended Fluconazole 150 M G eCW1 ([facility]) Basaglar KwikPen 100 UNIT/ML Basaglar KwikPen 100 UNIT/ML 12:00:00 AM EST active Basaglar KwikPen 100 UNIT/ML eCW1 ([facility]) Fluconazole 150 MG Oral Tablet Fluconazole 150 MG 09/01/2020 12:00: 00 AM EST 1.0 {tablet} active Fluconazole 150 MG eCW1 ([facility]) BD Pen Needle Mini U/F 31G X 5 MM BD Pen Needle Mini U/F 31G X 5 MM 09/01/2020 12:00:00 AM EST active BD Pen N eedle Mini U/F 31G X 5 MM eCW1 ([facility]) Basaglar KwikPen 100 UNIT/ML Basaglar KwikPen 100 UNIT/ML 12:00:00 AM EST active Basaglar KwikPen 100 UNIT/ML eCW1 ([facility]) BD Pen Needle Mini U/F 31G X 5 MM BD Pen Needle Mini U/F 31G X 5 MM 09/01/2020 12:00:00 AM EST active BD Pen N eedle Mini U/F 31G X 5 MM eCW1 ([facility]) BD Pen Needle Mini U/F 31G X 5 MM BD Pen Needle Mini U/F 31G X 5 MM 09/01/2020 12:00:00 AM EST active BD Pen N eedle Mini U/F 31G X 5 MM eCW1 ([facility]) Fluconazole 150 MG Oral Tablet Fluconazole 150 MG 09/01/2020 12:00: 00 AM EST 1.0 {tablet} suspended Fluconazole 150 M G eCW1 ([facility]) BD Pen Needle Mini U/F 31G X 5 MM BD Pen Needle Mini U/F 31G X 5 MM 09/01/2020 12:00:00 AM EST active BD Pen N eedle Mini U/F 31G X 5 MM eCW1 ([facility]) BD Pen Needle Mini U/F 31G X 5 MM BD Pen Needle Mini U/F 31G X 5 MM 09/01/2020 12:00:00 AM EST active BD Pen N eedle Mini U/F 31G X 5 MM eCW1 ([facility]) BD Pen Needle Mini U/F 31G X 5 MM BD Pen Needle Mini U/F 31G X 5 MM 09/01/2020 12:00:00 AM EST active BD Pen N eedle Mini U/F 31G X 5 MM eCW1 ([facility]) Basaglar KwikPen 100 UNIT/ML Basaglar KwikPen 100 UNIT/ML 12:00:00 AM EST active Basaglar KwikPen 100 UNIT/ML eCW1 ([facility]) Fluconazole 150 MG Oral Tablet Fluconazole 150 MG 09/01/2020 12:00: 00 AM EST 1.0 {tablet} suspended Fluconazole 150 M G eCW1 ([facility]) Fluconazole 150 MG Oral Tablet Fluconazole 150 MG 09/01/2020 12:00: 00 AM EST 1.0 {tablet} suspended Fluconazole 150 M G eCW1 ([facility]) Fluconazole 150 MG Oral Tablet Fluconazole 150 MG 09/01/2020 12:00: 00 AM EST 1.0 {tablet} suspended Fluconazole 150 M G eCW1 ([facility]) BD Pen Needle Mini U/F 31G X 5 MM BD Pen Needle Mini U/F 31G X 5 MM 09/01/2020 12:00:00 AM EST active BD Pen N eedle Mini U/F 31G X 5 MM eCW1 ([facility]) BD Pen Needle Mini U/F 31G X 5 MM BD Pen Needle Mini U/F 31G X 5 MM 09/01/2020 12:00:00 AM EST active BD Pen N eedle Mini U/F 31G X 5 MM eCW1 ([facility]) BD Pen Needle Mini U/F 31G X 5 MM BD Pen Needle Mini U/F 31G X 5 MM 09/01/2020 12:00:00 AM EST active BD Pen N eedle Mini U/F 31G X 5 MM eCW1 ([facility]) Fluconazole 150 MG Oral Tablet Fluconazole 150 MG 09/01/2020 12:00: 00 AM EST 1.0 {tablet} suspended Fluconazole 150 M G eCW1 ([facility]) Fluconazole 150 MG Oral Tablet Fluconazole 150 MG 09/01/2020 12:00: 00 AM EST 1.0 {tablet} suspended Fluconazole 150 M G eCW1 ([facility]) Fluconazole 150 MG Oral Tablet Fluconazole 150 MG 09/01/2020 12:00: 00 AM EST 1.0 {tablet} active Fluconazole 150 MG eCW1 ([facility]) Fluconazole 150 MG Oral Tablet Fluconazole 150 MG 09/01/2020 12:00: 00 AM EST 1.0 {tablet} suspended Fluconazole 150 M G eCW1 ([facility]) Basaglar KwikPen 100 UNIT/ML Basaglar KwikPen 100 UNIT/ML 12:00:00 AM EST active Basaglar KwikPen 100 UNIT/ML eCW1 ([facility]) Fluconazole 150 MG Oral Tablet Fluconazole 150 MG 09/01/2020 12:00: 00 AM EST 1.0 {tablet} suspended Fluconazole 150 M G eCW1 ([facility]) Fluconazole 150 MG Oral Tablet Fluconazole 150 MG 09/01/2020 12:00: 00 AM EST 1.0 {tablet} active Fluconazole 150 MG eCW1 ([facility]) Fluconazole 150 MG Oral Tablet Fluconazole 150 MG 09/01/2020 12:00: 00 AM EST 1.0 {tablet} suspended Fluconazole 150 M G eCW1 ([facility]) Fluconazole 150 MG Oral Tablet Fluconazole 150 MG 09/01/2020 12:00: 00 AM EST 1.0 {tablet} active Fluconazole 150 MG eCW1 ([facility]) BD Pen Needle Mini U/F 31G X 5 MM BD Pen Needle Mini U/F 31G X 5 MM 09/01/2020 12:00:00 AM EST active BD Pen N eedle Mini U/F 31G X 5 MM eCW1 ([facility]) BD Pen Needle Mini U/F 31G X 5 MM BD Pen Needle Mini U/F 31G X 5 MM 09/01/2020 12:00:00 AM EST active BD Pen N eedle Mini U/F 31G X 5 MM eCW1 ([facility]) Basaglar KwikPen 100 UNIT/ML Basaglar KwikPen 100 UNIT/ML 12:00:00 AM EST active Basaglar KwikPen 100 UNIT/ML eCW1 ([facility]) BD Pen Needle Mini U/F 31G X 5 MM BD Pen Needle Mini U/F 31G X 5 MM 09/01/2020 12:00:00 AM EST active BD Pen N eedle Mini U/F 31G X 5 MM eCW1 ([facility]) Basaglar KwikPen 100 UNIT/ML Basaglar KwikPen 100 UNIT/ML 12:00:00 AM EST active Basaglar KwikPen 100 UNIT/ML eCW1 ([facility]) Basaglar KwikPen 100 UNIT/ML Basaglar KwikPen 100 UNIT/ML 12:00:00 AM EST active Basaglar KwikPen 100 UNIT/ML eCW1 ([facility]) BD Pen Needle Mini U/F 31G X 5 MM BD Pen Needle Mini U/F 31G X 5 MM 09/01/2020 12:00:00 AM EST active BD Pen N eedle Mini U/F 31G X 5 MM eCW1 ([facility]) Fluconazole 150 MG Oral Tablet Fluconazole 150 MG 09/01/2020 12:00: 00 AM EST 1.0 {tablet} active Fluconazole 150 MG eCW1 ([facility]) Fluconazole 150 MG Oral Tablet Fluconazole 150 MG 09/01/2020 12:00: 00 AM EST 1.0 {tablet} suspended Fluconazole 150 M G eCW1 ([facility]) Fluconazole 150 MG Oral Tablet Fluconazole 150 MG 09/01/2020 12:00: 00 AM EST 1.0 {tablet} suspended Fluconazole 150 M G eCW1 ([facility]) Fluconazole 150 MG Oral Tablet Fluconazole 150 MG 09/01/2020 12:00: 00 AM EST 1.0 {tablet} active Fluconazole 150 MG eCW1 ([facility]) Fluconazole 150 MG Oral Tablet Fluconazole 150 MG 09/01/2020 12:00: 00 AM EST 1.0 {tablet} suspended Fluconazole 150 M G eCW1 ([facility]) Fluconazole 150 MG Oral Tablet Fluconazole 150 MG 09/01/2020 12:00: 00 AM EST 1.0 {tablet} suspended Fluconazole 150 M G eCW1 ([facility]) Basaglar KwikPen 100 UNIT/ML Basaglar KwikPen 100 UNIT/ML 12:00:00 AM EST active Basaglar KwikPen 100 UNIT/ML eCW1 ([facility]) Fluconazole 150 MG Oral Tablet Fluconazole 150 MG 09/01/2020 12:00: 00 AM EST 1.0 {tablet} suspended Fluconazole 150 M G eCW1 ([facility]) Fluconazole 150 MG Oral Tablet Fluconazole 150 MG 09/01/2020 12:00: 00 AM EST 1.0 {tablet} suspended Fluconazole 150 M G eCW1 ([facility]) Fluconazole 150 MG Oral Tablet Fluconazole 150 MG 09/01/2020 12:00: 00 AM EST 1.0 {tablet} active Fluconazole 150 MG eCW1 ([facility]) Fluconazole 150 MG Oral Tablet Fluconazole 150 MG 09/01/2020 12:00: 00 AM EST 1.0 {tablet} suspended Fluconazole 150 M G eCW1 ([facility]) BD Pen Needle Mini U/F 31G X 5 MM BD Pen Needle Mini U/F 31G X 5 MM 09/01/2020 12:00:00 AM EST active BD Pen N eedle Mini U/F 31G X 5 MM eCW1 ([facility]) BD Pen Needle Mini U/F 31G X 5 MM BD Pen Needle Mini U/F 31G X 5 MM 09/01/2020 12:00:00 AM EST active BD Pen N eedle Mini U/F 31G X 5 MM eCW1 ([facility]) Basaglar KwikPen 100 UNIT/ML Basaglar KwikPen 100 UNIT/ML 12:00:00 AM EST active Basaglar KwikPen 100 UNIT/ML eCW1 ([facility]) BD Pen Needle Mini U/F 31G X 5 MM BD Pen Needle Mini U/F 31G X 5 MM 09/01/2020 12:00:00 AM EST active BD Pen N eedle Mini U/F 31G X 5 MM eCW1 ([facility]) BD Pen Needle Mini U/F 31G X 5 MM BD Pen Needle Mini U/F 31G X 5 MM 09/01/2020 12:00:00 AM EST active BD Pen N eedle Mini U/F 31G X 5 MM eCW1 ([facility]) BD Pen Needle Mini U/F 31G X 5 MM BD Pen Needle Mini U/F 31G X 5 MM 09/01/2020 12:00:00 AM EST active BD Pen N eedle Mini U/F 31G X 5 MM eCW1 ([facility]) Basaglar KwikPen 100 UNIT/ML Basaglar KwikPen 100 UNIT/ML 12:00:00 AM EST active Basaglar KwikPen 100 UNIT/ML eCW1 ([facility]) Basaglar KwikPen 100 UNIT/ML Basaglar KwikPen 100 UNIT/ML 12:00:00 AM EST active Basaglar KwikPen 100 UNIT/ML eCW1 ([facility]) BD Pen Needle Mini U/F 31G X 5 MM BD Pen Needle Mini U/F 31G X 5 MM 09/01/2020 12:00:00 AM EST active BD Pen N eedle Mini U/F 31G X 5 MM eCW1 ([facility]) Basaglar KwikPen 100 UNIT/ML Basaglar KwikPen 100 UNIT/ML 12:00:00 AM EST active Basaglar KwikPen 100 UNIT/ML eCW1 ([facility]) Acetaminophen 325 MG / Hydrocodone Ju trate 7.5 MG Oral Tablet Hydrocodone- Acetaminophen 7.5-325 MG Hydrocodone-Acetaminophen 7.5-325 MG 08/06/2020 12:00:00 AM EST 1.0 {tablet_as_needed} active Hydrocodone- Acetaminophen 7.5-325 MG eCW1 ([facility]) Acetaminophen 325 MG / Hydrocodone Ju trate 7.5 MG Oral Tablet Hydrocodone- Acetaminophen 7.5-325 MG Hydrocodone-Acetaminophen 7.5-325 MG 08/06/2020 12:00:00 AM EST 1.0 {tablet_as_needed} active Hydrocodone- Acetaminophen 7.5-325 MG eCW1 ([facility]) Acetaminophen 325 MG / Hydrocodone Ju trate 7.5 MG Oral Tablet Hydrocodone- Acetaminophen 7.5-325 MG Hydrocodone-Acetaminophen 7.5-325 MG 08/06/2020 12:00:00 AM EST 1.0 {tablet_as_needed} active Hydrocodone- Acetaminophen 7.5-325 MG eCW1 ([facility]) pioglitazone 15 MG Oral Tablet Pioglitazone HCl 15 MG Piogli tazone HCl 15 MG 07/18/2020 12:00:00 AM EST 1.0 {tablet} active Pioglitazone HCl 15 MG eCW1 ([facility]) pioglitazone 15 MG Oral Tablet Pioglitazone HCl 15 MG Piogli tazone HCl 15 MG 07/18/2020 12:00:00 AM EST 1.0 {tablet} active Pioglitazone HCl 15 MG eCW1 ([facility]) pioglitazone 15 MG Oral Tablet Pioglitazone HCl 15 MG Piogli tazone HCl 15 MG 07/18/2020 12:00:00 AM EST 1.0 {tablet} active Pioglitazone HCl 15 MG eCW1 ([facility]) pioglitazone 15 MG Oral Tablet Pioglitazone HCl 15 MG Piogli tazone HCl 15 MG 07/18/2020 12:00:00 AM EST 1.0 {tablet} active Pioglitazone HCl 15 MG eCW1 ([facility]) pioglitazone 15 MG Oral Tablet Pioglitazone HCl 15 MG Piogli tazone HCl 15 MG 07/18/2020 12:00:00 AM EST 1.0 {tablet} active Pioglitazone HCl 15 MG eCW1 ([facility]) Fluconazole 150 MG Oral Tablet Fluconazole 150 MG 07/18/2020 12:00: 00 AM EST 1.0 {tablet} active Fluconazole 150 MG eCW1 ([facility]) pioglitazone 15 MG Oral Tablet Pioglitazone HCl 15 MG Piogli tazone HCl 15 MG 07/18/2020 12:00:00 AM EST 1.0 {tablet} active Pioglitazone HCl 15 MG eCW1 ([facility]) pioglitazone 15 MG Oral Tablet Pioglitazone HCl 15 MG Piogli tazone HCl 15 MG 07/18/2020 12:00:00 AM EST 1.0 {tablet} active Pioglitazone HCl 15 MG eCW1 ([facility]) pioglitazone 15 MG Oral Tablet Pioglitazone HCl 15 MG Piogli tazone HCl 15 MG 07/18/2020 12:00:00 AM EST 1.0 {tablet} active Pioglitazone HCl 15 MG eCW1 ([facility]) Fluconazole 150 MG Oral Tablet Fluconazole 150 MG 07/18/2020 12:00: 00 AM EST 1.0 {tablet} active Fluconazole 150 MG eCW1 ([facility]) pioglitazone 15 MG Oral Tablet Pioglitazone HCl 15 MG Piogli tazone HCl 15 MG 07/18/2020 12:00:00 AM EST 1.0 {tablet} active Pioglitazone HCl 15 MG eCW1 ([facility]) pioglitazone 15 MG Oral Tablet Pioglitazone HCl 15 MG Piogli tazone HCl 15 MG 07/18/2020 12:00:00 AM EST 1.0 {tablet} active Pioglitazone HCl 15 MG eCW1 ([facility]) pioglitazone 15 MG Oral Tablet Pioglitazone HCl 15 MG Piogli tazone HCl 15 MG 07/18/2020 12:00:00 AM EST 1.0 {tablet} active Pioglitazone HCl 15 MG eCW1 ([facility]) pioglitazone 15 MG Oral Tablet Pioglitazone HCl 15 MG Piogli tazone HCl 15 MG 07/18/2020 12:00:00 AM EST 1.0 {tablet} active Pioglitazone HCl 15 MG eCW1 ([facility]) pioglitazone 15 MG Oral Tablet Pioglitazone HCl 15 MG Piogli tazone HCl 15 MG 07/18/2020 12:00:00 AM EST 1.0 {tablet} active Pioglitazone HCl 15 MG eCW1 ([facility]) pioglitazone 15 MG Oral Tablet Pioglitazone HCl 15 MG Piogli tazone HCl 15 MG 07/18/2020 12:00:00 AM EST 1.0 {tablet} active Pioglitazone HCl 15 MG eCW1 ([facility]) pioglitazone 15 MG Oral Tablet Pioglitazone HCl 15 MG Piogli tazone HCl 15 MG 07/18/2020 12:00:00 AM EST 1.0 {tablet} active Pioglitazone HCl 15 MG eCW1 ([facility]) pioglitazone 15 MG Oral Tablet Pioglitazone HCl 15 MG Piogli tazone HCl 15 MG 07/18/2020 12:00:00 AM EST 1.0 {tablet} active Pioglitazone HCl 15 MG eCW1 ([facility]) pioglitazone 15 MG Oral Tablet Pioglitazone HCl 15 MG Piogli tazone HCl 15 MG 07/18/2020 12:00:00 AM EST 1.0 {tablet} active Pioglitazone HCl 15 MG eCW1 ([facility]) Fluconazole 150 MG Oral Tablet Fluconazole 150 MG 07/18/2020 12:00: 00 AM EST 1.0 {tablet} active Fluconazole 150 MG eCW1 ([facility]) Fluconazole 150 MG Oral Tablet Fluconazole 150 MG 07/18/2020 12:00: 00 AM EST 1.0 {tablet} active Fluconazole 150 MG eCW1 ([facility]) pioglitazone 15 MG Oral Tablet Pioglitazone HCl 15 MG Piogli tazone HCl 15 MG 07/18/2020 12:00:00 AM EST 1.0 {tablet} active Pioglitazone HCl 15 MG eCW1 ([facility]) pioglitazone 15 MG Oral Tablet Pioglitazone HCl 15 MG Piogli tazone HCl 15 MG 07/18/2020 12:00:00 AM EST 1.0 {tablet} active Pioglitazone HCl 15 MG eCW1 ([facility]) pioglitazone 15 MG Oral Tablet Pioglitazone HCl 15 MG Piogli tazone HCl 15 MG 07/18/2020 12:00:00 AM EST 1.0 {tablet} active Pioglitazone HCl 15 MG eCW1 ([facility]) Acetaminophen 325 MG / Hydrocodone Ju trate 7.5 MG Oral Tablet Hydrocodone- Acetaminophen 7.5-325 MG Hydrocodone-Acetaminophen 7.5-325 MG 07/07/2020 12:00:00 AM EST 1.0 {tablet_as_needed} active Hydrocodone- Acetaminophen 7.5-325 MG eCW1 ([facility]) Acetaminophen 325 MG / Hydrocodone Ju trate 7.5 MG Oral Tablet Hydrocodone- Acetaminophen 7.5-325 MG Hydrocodone-Acetaminophen 7.5-325 MG 07/07/2020 12:00:00 AM EST 1.0 {tablet_as_needed} active Hydrocodone- Acetaminophen 7.5-325 MG eCW1 ([facility]) Acetaminophen 325 MG / Hydrocodone Ju trate 7.5 MG Oral Tablet Hydrocodone- Acetaminophen 7.5-325 MG Hydrocodone-Acetaminophen 7.5-325 MG 07/07/2020 12:00:00 AM EST 1.0 {tablet_as_needed} active Hydrocodone- Acetaminophen 7.5-325 MG eCW1 ([facility]) 24 HR Metformin hydrochloride 500 MG Ext ended Release Oral Tablet MetFORMIN HCl ER 500 MG MetFORMIN HCl ER 500 MG 06/26/2020 12:00:00 AM EST active MetFORMIN HCl ER 500 MG eCW1 ([facility]) 24 HR Metformin hydrochloride 500 MG Ext ended Release Oral Tablet MetFORMIN HCl ER 500 MG MetFORMIN HCl ER 500 MG 06/26/2020 12:00:00 AM EST active MetFORMIN HCl ER 500 MG eCW1 ([facility]) 24 HR Metformin hydrochloride 500 MG Ext ended Release Oral Tablet MetFORMIN HCl ER 500 MG MetFORMIN HCl ER 500 MG 06/26/2020 12:00:00 AM EST active MetFORMIN HCl ER 500 MG eCW1 ([facility]) 24 HR Metformin hydrochloride 500 MG Ext ended Release Oral Tablet MetFORMIN HCl ER 500 MG MetFORMIN HCl ER 500 MG 06/26/2020 12:00:00 AM EST active MetFORMIN HCl ER 500 MG eCW1 ([facility]) Insurance Providers Payer name Policy type / Coverage type Policy ID Covered constitution party ID Covered constitution party's relationship to nicolas Policy Nicolas Plan Information FFS Self Pay [id number] Self [id number] [place] MEDICAID HMO -O/P [id number] 18 [id number] MV MEDICAID HMO -[id number] 1 [facility] [id number] SP [id number] [place] [id number] SP [id number] [facility] SP UNAVAILABLE S U NAVAILABLE SELF PAY SP UNAVAILABLE S UNAVAILA BLE P UNAVAILABLE UNAVAILA BLE [employer] [id number] SP [id number] CIGNA/MVP/CONN GEN/PREFE P [id number] S [id number] MEDICAID P [id number] S [id number] [employer] INSUR[employer] CO [id number] SP [id number] SELF PAY UNAVAILABLE UNAVAILA BLE MEDICAID [id number] Self Pay P UNAVAILABLE S UNAVAILA BLE [facility] [id number] SP [id number] [facility] [id number] SP [id number] SELF PAY ONLY [id number] SP [id number] [facility] [id number] SP [id number] [employer] [id number] SP [id number] Problems, Conditions, and Diagnoses Code Display Name Description Problem Type Effective Dates Data Source(s) E872 Acidosis Acidosis Diagnosis 10/19/2020 06:44:00 PM ED T [facility] E873 Alkalosis Alkalosis Diagnosis 10/19/2020 06:44:00 PM ED T [facility] R1115 Cyclical vomiting syndrome unrelated to migraine Cyclical vomiting syndrome unrelated to migraine Diagnosis 10/19/2020 06:44:00 PM EDT [facility] [id number] Nicotine dependence, cigarettes, uncompl icated Nicotine dependence, cigarettes, uncomplicated Diagnosis 10/19/2020 06:44:00 PM EDT [facility] E119 Type 2 diabetes mellitus without complic ations Type 2 diabetes mellitus without complications Diagnosis 10/19/2020 06:44:00 PM EDT [facility] R079 Chest pain, unspecified Chest pain, unspecified Diagno sis 10/19/2020 06:44:00 PM EDT [facility] R112 Nausea with vomiting, unspecified Nausea with vo miting, unspecified Diagnosis 10/19/2020 06:44:00 PM EDT [facility] N3001 Acute cystitis with hematuria Acute cystitis with lindsey turia Diagnosis 10/19/2020 06:44:00 PM EDT [facility] R1013 Epigastric pain Epigastric pain Diagnosis 10/19/2020 06:4 4:00 PM EDT [facility] F41.1 [id number] SUZANNA (generalized anxiety disorder) Proble 02/06/2021 12:00:00 AM EDT eCW1 ([facility]) F32.9 [id number] Depression, unspecified depression type P roblem 02/06/2021 12:00:00 AM EDT eCW1 ([facility]) I10 [id number] Essential hypertension Problem 10/25/2020 12 :00:00 AM EDT eCW1 ([facility]) M54.41 [id number] Lumbago with sciatica, right side Problem 10/25/2020 12:00:00 AM EDT eCW1 ([facility]) 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 Proble m 09/24/2020 12:00:00 AM EDT eCW1 ([facility]) E11.9 [id number] Type 2 diabetes mellitus without complica tions Problem 09/24/2020 12:00:00 AM EDT eCW1 ([facility]) G43.009 [id number] Migraine without aur a and without status migrainosus, not intractable Problem 07/08/2020 12:00:00 AM EST eCW1 ([facility]) F41.9 [id number] Anxiety Problem 06/26/2020 12:00:00 AM ES T eCW1 ([facility]) G89.29 [id number] Other chronic pain Problem 06/26/2020 12:00: 00 AM EST eCW1 ([facility]) E11.9 [id number] Type 2 diabetes gayatri itus without complication, without long-term current use of insulin Problem 06/26/2020 12:00:00 AM EST eCW1 ([facility]) 520.6 Impacted tooth Impacted tooth 05/13/2020 08:53: 08 AM EST [facility] Surgeries/Procedures No Information Results ID Date Data Source LIPID PANEL (CARDIAC RISK) 10/24/2020 12:00:00 AM EDT eCW1 ( [facility]) Name Value Range Interpretation Code Description Data Melonie rce(s) Supporting Document(s) Triglyceride [Mass/volume] in Serum or Plasma by calculation 85 <150 TRIGLYCERIDES LEVEL eCW1 ([facility]) Cholesterol in LDL [Mass/volume] in Serum or Plasma by calculation 95 <100 LDL CHOLESTEROL eCW1 ([facility]) 112 NON-HDL-C eCW1 ([facility]) Cholesterol [Moles/volume] in Serum or Plasma 156 <200 CHOLESTEROL LEVEL eCW1 ([facility]) Cholesterol in HDL [Moles/volume] in Serum or Plasma 44 >40 HDL CHOLESTEROL eCW1 ([facility]) 3.545 <5 CHOLESTEROL RISK RATIO eCW1 ([facility]) ID Date Data Source [id number] 10/24/2020 12:00:00 AM EDT eCW1 ([facility]) Name Value Range Interpretation Code Description Data Melonie rce(s) Supporting Document(s) Hemoglobin A1c/Hemoglobin.total in Blood 8.8 HEMOGLOBIN A1c eCW1 ([facility]) ID Date Data Source [id number] 10/21/2020 03:02:00 AM EDT [facility] [address] [place] [address] RESPIRATORY CARE REPORT ==== ---------NAME------- NUMBER SEX AGE ADMIT DISC. XRAY# F/C JOSEMANUEL HUFF N [id number] F 40 10/19/20 10/19/20 [id number] XBM E/R DATE OF : 1980 M/R# [id number] PH#: [phone] TR-02 LOCATION: EMERGENCY DEPT EKG 50258 COMP LETE:10/20/20 02:05 AJP 85805 PHYSICIAN: TOSHA ARMENTA Name Value Range Interpretation Code Description Data Melonie rce(s) Supporting Document(s) ID Date Data Source [id number] 10/20/2020 09:13:00 [place] [address] PHONE: [phone] FAX: [phone] Name .................. : YUMI Keane Acct Number.................. : [id number] ROOM. ................. : TR-02 Number ................... : [id number] Stay type ............. : E/R Discharge Date......... ... : Admit Date ......... : 10/19/20 Admit Phys .................... : TOSHA Tony Date of ....... : 1980 Family Phys ................... : RUCHI TENORIO Phone .................. : [phone] Age ................................ : 40 Film# .................. .:[id number] Sex ................................. : F Unsigned transcriptions are preliminary reports and do not represent a medical or legal document CHEST PORTABLE [id number] COMPLETE:10/19/20 19:58 DLA 8501 Reason(s): Chest Pain [...] rce(s) Supporting Document(s) ID Date Data Source [id number] 10/19/2020 06:44:00 PM EDT [facility] 1 OrderSheet [facility] Emergency Department [address] [place] [address] Phone #: kxu- [phone] 10/19/2020 18:26 Patient: REFUGIO EASON Sex: F [...] W/O IV Yesika Caruso R.N. 2 OrderSheet [facility] Emergency Department [address] [place] [address] Phone #: ext- [phone] 10/19/2020 18:26 Patient: REFUGIO EASON Sex: F : 1980 Age: 40yContrast PA; R.N.(Oxygen?(No))(IV?(Yes)) NOTES: Right Flank and back pain Reason for Study: Abdominal PainChest Portable 1 STAT 18:47 10/19/2020 Ack'd: 18:49 19:18 Armando,View Yesika Caruso R.N.(Oxygen?(No)) PA; R.N. Reason for Study: Chest PainMEDICATION/IV/DRIP/FLUID ORDERSOrder Description Priority Entered Acknowledged InitialedNS IV : Bolus 1000 18:45 10/19/2020 18:56 Ct,mL, then 150 mL/hr Tushar GONCALVES;Zofran IVP 8 mg 18:45 10/19/2020 18:52 Tushar Fofana R.N.;Toradol IVP 30 mg 18:45 10/19/2020 18:53 Tushar Fofana R.N.;Ofirmev IV 1000 mg 18:45 10/19/2020 19:20 Armando,(NOW x1, Infuse Tushar Queen R.N.over 15 minutes) PA;Ativan IVP 2 mg 18:57 [...] x1, HIGH Tushar Boss PA;MEDICATION, 3 OrderSheet [facility] Emergency Department [address] [place] [address] Phone #: ext- [phone] 10/19/2020 18:26 Patient: REFUGIO EASON Sex: F [...] rce(s) Supporting Document(s) ID Date Data Source [id number] 10/19/2020 06:44:00 PM EDT [facility] 1 Medication Reconciliation Report [facility] Emergency Department [address] [place] [address] Phone #: ext- [phone] 10/19/2020 18:26 Patient: REFUGIO EASON Sex: F [...] administered: 21:36 10/19/2020 2 Medication Reconciliation Report [facility] Emergency Department [address] [place] [address] Phone #: ext- [phone] 10/19/2020 18:26 - Patient: REFUGIO EASON Sex: F : 1980 Age: 40yPROMETHAZINE [IVP] IVP 25 mg, administered: 22:15 10/19/2020The following Medications were prescribed to the patient:ondansetron 8 mg disintegrating tablet Take 1 tablet three times a day for 10 days -- Dispense 30tablet. Refills: 0. Substitution permitted.[facility] - [address] [place] [address] ; [place] [address]. .cefdinir 300 mg capsule Take 1 capsule twice a day for 7 days -- Dispense 14 capsule. Refills: 0.Substitution permitted.[facility] - [address] [place] [address]. .fluconazole 150 mg tablet Take 1 tablet single dose as needed for 1 days -- May repeat in 1 week if s/spersist. Dispense 2 tablet. R efills: 0. Substitution permitted.[facility] [place] [address]. . -- IVANNA Bush Name Value Range Interpretation Code Description Data Melonie rce(s) Supporting Document(s) ID Date Data Source [id number] 10/19/2020 06:44:00 PM EDT [facility] 1 Medication Administration Record [facility] Emergency Department [address] [place] [address] Phone #: ext- [phone] 10/19/2020 18:26 Patient: REFUGIO EASON Sex: F : 1980 Age: 40yWeight: 68.0 kgHeight/Length: 61 inBMI: 28.3ALLERGIES: NKDA Date/Time Medication Administered Medication OrderedStart NS [IV] NS IV : Bolus 1000 mL, then 33618:56 10/19/2020 Dose: IV Fluids mL/Jaclyn Emerson R.N. Bolus: 1000 mL wide open---- Dispensed: 1000 mL bagStop Sit e: #1 left wrist20:14 10/19/2020Farrah Sanchez R.N.Given ZOFRAN [IVP] (ONDANSETRON HCL) Zofran IVP 8 mg18:52 10/19/2020 Dose: 8 mg IVPJaclyn Fofana R.NCassie Site: #1 left wristGiven TORADOL [IVP] (KETOROLAC Toradol IVP 30 mg18:53 10/19/2020 TROMETHAMINE)Jaclyn Fofana RCassieNCassie Dose: 30 mg IVP Site: #1 left [...] wristStart ROCEPHIN (1GM/50ML) [IVPB] Rocephin (1gm/50mL) IVPB 866396:36 10/19/2020 (CEFTRIAXONE SODIUM) mg with Dextrose 50 ml spike Yesika Esqueda RSinai Dose: 1 gm IVPB (D5W)---- Rate: 100 mL/hrStop Dispensed: 50 mL bag22:06 10/19/2020 Site: #1 left wristYesika Mari R.N.Given PROMETHAZINE [IVP] Promethazine IV 25 mg (NOW x1,22:15 10/19/2020 Dose: 25 mg IVP HIGH ALERT MEDICATION, NOW)Paul Alonso, Site: #1 Name Value Range Interpretation Code Description Data Melonie rce(s) Supporting Document(s) ID Date Data Source [id number] 10/19/2020 06:44:00 PM EDT [facility] 1 General Instructions [facility] Emergency Department [address] [place] [address] Phone #: ext- [phone] 10/19/2020 18:26 Patient: REFUGIO EASON Sex: F [...] Dispense 30tablet. Refills: 0. Substitution permitted.Pharmacy - [facility] [id number] - [address] [facility] ; [place] [address]. .cefdinir 300 mg capsule Take 1 capsule twice a day for 7 days -- Dispense 14 capsule. Refills: 0.Substitution permitted.[facility] [address] [place] [address]. .fluconazole 150 mg tablet Take 1 tablet single dose as needed for 1 days -- May repeat in 1 week if s/spersist. Dispense 2 tablet. Refills: 0. Sub stitution permitted.[facility] [address] [place] [address]. .Follow-up:Follow up with your doctor Tuesday. Reason for referral: evaluation, treatment and refer to Urology, Pain 2 General Instructions [facility] Emergency Department [address] [place] [address] Phone #: ext- [phone] 10/19/2020 18:26 Patient: [...] and water are not available, use alcohol-based diagnostic tech to keep from spreading the infection to [...] then follow these guidelines: 3 General Instructions [facility] Emergency Department [address] [place] [address] Phone #: ext- [phone] 10/19/2020 18:26 Patient: [...] Unusually drowsy or confused 4 General Instructions [facility] Emergency Department [address] [place] [address] Phone #: ext- [phone] 10/19/2020 18:26 Patient: REFUGIO EASON Sex: F : 1980 Age: 40y Fever of 100.4F (38C) oral or higher, or as directed Yellow color of the eyes or skin [employer]. [address] [place] [address]. All rights reserved. This information is not [...] of cystitis isan infection. 5 General Instructions [facility] Emergency Department [address] [place] [address] Phone #: ext- [phone] 10/19/2020 18:26 Patient: REFUGIO EASON Sex: F [...] put in Older age 8 General Instructions [facility] Emergency Department [address] [place] [address] Phone #: ext- [phone] 10/19/2020 18:26 Patient: REFUGIO EASON Sex: F [...] and vegetables, and fiber. 7 General Instructions [facility] Emergency Department [address] [place], [place] [address] Phone #: ext- [phone] 10/19/2020 18:26 Patient: [...] if the results will affect your treatment.Call [phone] if any of the following occur: Trouble [...] outer vaginal area (labia) 8 General Instructions [facility] Emergency Department [address] [place] [address] Phone #: ext- [phone] 10/19/2020 18:26 Patient: REFUGIO EASON Sex: F : 1980 Age: 40y [id number] [employer] [place] [address], [place] [address]. All rights reserved. This information is not intended as asubstitute for professional medical care. Always follow your healthcare professional's instructions. You have been given the following additional information: Vomiting (Adult) Bladder Infection, Female (Adult)(Electronically signed by IVANNA Bush 10/19/2020 22:11) Name Value Range Interpretation Code Description Data Melonie rce(s) Supporting Document(s) ID Date Data Source [id number] 10/19/2020 06:44:00 PM EDT [facility] 1 Clinical Report - Nurses [facility] Emergency Department [address] [place] [address] Phone #: ext- [phone] 10/19/2020 18:26 Patient: [...] breathing or skin rash. Denies muscle aches.Treatment ADMISSIONS COUNSELOR:None.RUT COMA SCORE: 15- eyes open- spontaneous (4); [...] Fofana R.N. 2 Clinical Report - Nurses [facility] Emergency Department [address] [place] [address] Phone #: fmi- [phone] 10/19/2020 18:26 [id number] Sex: F : 1980 Age: 40y ADDITIONAL [...] Mari R.N. 3 Clinical Report - Nurses [facility] Emergency Department [address] [place] [address] Phone #: ext- [phone] 10/19/2020 18:26 Patient: REFUGIO EASON Sex: F [...] 10/19/20 Jaclyn Fofana R.N. Patient transported to [place] by wheelchair with mask and p 3 armament/ordnance ima technician. --18:56 10/19/20 Jaclyn Fofana R.N. EKG time: (late entry - 19:19 10/19/2020). EKG was ordered, performed by a tech and shown to the PA. --19:17 10/19/20 Bernice Roberts R.N. 19:10/19/2020 Ativan (LORazepam) IVP 2 mg given diluted [...] reaction, precautions and sedative warning. Verbalizes understanding. --19:10/19/20 Bernice Roberts R.N. 19:10/19/2020 Ofirmev * IVPB 1000 mg --19:20 10/19/20 Bernice Roberts R.N. Reassessment acuity: LEVEL 3. ( Pt hyperventilating, not able to be still, making odd vocal noises; PA aware and aware of all VS). --19:20 10/19/20 Bernice Roberts R.N. 19:10/19/20. BP: 178/93. HR: 53. RR: 19. O2 saturation: 100%. --19:10/19/20 Bernice Roberts R.N. 4 Clinical Report - Nurses [facility] Emergency Department [address] [place] [address] Phone #: ext- [phone] 10/19/2020 18:26 Patient: REFUGIO EASON Sex: F : 1980 Age: 40y19:35 10/19/2020 Ofirmev IVPB Discontinued: bag #1 infused. Total amount infused: 100ml mL. IVpatency established. IV site checked: no pain, redness, or swelling. IV flushed thoroughly. --19:35 10/19/20Yesika Mari R.N.20:02 10/19/20. BP: 161/79. MAP: 106. HR: 57. RR: 15. O2 saturation: 100%. --20:02 10/19/20 [facility] Xpjx132:14 10/19/2020 IV Fluids NS via IV site #1 Discontinued: bag #1 completed. Total amount infused: 1000mL. --20:14 10/19/20 Farrah Sanchez R.N.20:30 10/19/20. BP: 144/93. MAP: 110. HR: 57. RR: 14. O2 saturation: 99% on room air. --20: Yesika Mari R.N.Oxygen administered by nasal cannula at 2 liters. adult education manager, NIBP monitor and pulse oximeterplaced on patient; [...] sample). --20:51 10/19/20 Yesika Mari R.N.21:00 10/19/20. adult education manager, NIBP monitor and pulse oximeter placed on [...] Total amount 5 Clinical Report - Nurses [facility] Emergency Department [address] [place] [address] Phone #: ext- [phone] 10/19/2020 18:26 [id number] Sex: F : 1980 Age: 40y infused: [...] reaction, precautions and sedative warning. Verbalizes understanding. --22:10/19/20 Paul Alonso.DISPOSITION / DISCHARGE 22:10/19/20. Departure time: [...] Patient verbalized understanding. Written instructions provided in Emirati. The patient was discharged by the physician accounting administrative assistant. She was discharged home and accompanied by parent. She left ambulatory and via private vehicle. Parent driving. --22:10/19/20 Yesika Mari R.N. 22:10/19/20. BP: 158/90. MAP: 112. HR: 56. RR: 18. O2 saturation: 99% on room air. Temp: 97.4 F (oral). Pain level now: 08/20. --22:17 10/19/20 Yseika Mari R.N.Locked/Released at 10/19/2020 22:19 by Yesika Mari R.N. Name Value Range Interpretation Code Description Data Melonie rce(s) Supporting Document(s) ID Date Data Source [id number] 10/19/2020 06:44:00 PM EDT [facility] 1 Clinical Report - Physicians/Mid Levels [facility] Emergency Department [address] [place] [address] Phone #: ext- [phone] 10/19/2020 18:26 Patient: REFUGIO EASON Sex: F [...] HISTORY 2 Clinical Report - Physicians/Mid Levels [facility] Emergency Department [address] [place] [address] Phone #: ext- [phone] 10/19/2020 18:26 Patient: REFUGIO EASON Sex: F [...] Laboratory Tests: ETOH: (USMAN: 10/19/2020 18:48) ( [facility] 19[facility]39) Final results Test Result Flag Units (Reference) ALCOHOL <10.0 MG/DL ALCOHOL % 0.01 % (0.00 - 0.01) *FOR MEDICAL PURPOSES ONLY* Troponin-T: (USMAN: 10/19/2020 18:48) ( [facility] 10/19/2020 19:45) Final results Test Result Flag Units (Reference) TROPONIN T <0.01 NG/ML (0.00 - 0.10) TROPONIN T0.1 ng/ml Recommended as the clinical threshold value forTroponin T. Chest Portable 1 View: (USMAN: 10/19/2020 18:47) ( [facility] 10/19/2020 19:59) In Progress CHEST PORTABLE Reason(s): Chest Pain TRANSPORTATION: WC IV? O2? Oxygen?(No) Room: ED CT ABD PEL W/O Oral W/O IV Contrast: (USMAN: 10/19/2020 18:46) ( [facility] 10/19/2020 19:29) Final results 3 Clinical Report - Physicians/Mid Levels [facility] Emergency Department [address] [place] [address] Phone #: ext- [phone] 10/19/2020 18:26 Patient: REFUGIO EASON Sex: F : 1980 Age: 40yExamCT ABD //T// PELV W/O ORAL W/O IV [address] [place] [address]---------NAME--------- NUMBER SEX AGE ADMIT DISCCassie BARNETT# F/C JOSEMANUEL HUFF N [id number] F 40 10/19/20 [id number] XBM E/R DATE OF : 1980 M/R# [id number] #: [id number] TR-02 LOCATION: EMERGENCY DEPT TRANSCRIBED: 10/19/20 19:[address] ABD //T// PELV W/[place] ORAL W/[place] [id number] COMPLETED:10/19/20 19:22 joceline 8500 Reason(s): Abdominal Pain [...] is evident. 4 Clinical Report - Physicians/[facility] Emergency Department [address] [place] [address] Phone #: ext- [phone] 10/19/2020 18:26 Patient: REFUGIO EASON Sex: F [...] PANEL 5 Clinical Report - Physicians/Mid Levels [facility] Emergency Department [address] [place] [address] Phone #: ext- [phone] 10/19/2020 18:26 Patient[id number] Sex: F : 1980 Age: 40y COMPREHENSIVE [...] with Fentanyl, pt [facility] for similar symptomsand refused to [...] Discharged home in good and improved condition (22:Oct 19 2020).CLINICAL IMPRESSION Intractable vomiting with nausea. Acute urinary tract infection with cystitis and hematuria. 6 Clinical Report - Physicians/Mid Levels [facility] Emergency Department [address] [place] [address] Phone #: ext- [phone] 10/19/2020 18:26 Patient: [...] Tablet 1 mg, 1/2 tablet, prn. Trudy Clark Subcutaneous : 28 units daily. HYDROcodone-Acetaminophen Oral : Tablet 10-300 mg, 1 tablet q6h, prn. Imitrex Oral : Tablet 100 mg, 1 tablet, prn. Prescription Medications: ondansetron 8 mg disintegrating tablet Take 1 tablet three times a day for 10 days -- Dispense 30 tablet. Refills: 0. Substitution permitted. [facility] [address] [place] [address]. . cefdinir 300 mg capsule Take 1 capsule twice a day for 7 days -- Dispense 14 capsule. Refills: 0. Substitution permitted. [facility] [address] [place] [address]. . fluconazole 150 mg tablet Take 1 tablet single dose as needed for 1 days -- May repeat in 1 week if s/s persist. Dispense 2 tablet. Refills: 0. Substitution permitted. [facility] [address] [place] [address]. . Follow-up: Follow up with your doctor Tuesday. Reason for referral: evaluation, treatment and refer to Urology, Pain management and MRI for Chronic back pain is symptoms worsen.. Summary of care provided to patient. Understanding of the discharge instructions verbalized by patient. 7 Clinical Report - Physicians/Mid Levels [facility] Emergency Department [address] [place] [address] Phone #: ext- [phone] 10/19/2020 18:26 Patient: REFUGIO EASON Sex: F : 1980 Age: 40y(Electronically signed by IVANNA Bush 10/19/2020 22:11) Name Value Range Interpretation Code Description Data Melonie rce(s) Supporting Document(s) ID Date Data Source [id number] 10/23/2020 08:29:00 PM EDT [facility] Name Value Range Interpretation Code Description Data Melonie rce(s) Supporting Document(s) CULTURE URINE [facility] _CULTURE URINE_$$[id number]$$122277$$722666$$157661$$400151$$509877$$432811$$169924$$314644$$ 851932$$745344$$380825$$852092$$069421$$856142$$257640$$076099$$906359$$880498$$ 692442$$322666$$609398$$024912$$998627$$081578$$629591$$657745 -- Continued on next page --Patient: YUMI HUFF N Order: [id number] Page 2Culture: CULTURE URINE Status: Final ==== -- Continued on next page --Patient: YUMI HUFF N Order: [id number] Page 2Culture: CULTURE URINE Status: Prelim =====$$[id number]$$[id number] DATE/TIME: 10/23/2020 15:06Culture: CULTURE URINE Status: FinalIsolate 1 Escherichia coli Flag: A . . . . . . .1Greater than 100,000 colony forming units per mLSusceptibility profile is consistent with a probable ESBL. Previous result entered on 10/23/2020 00:28 ET Escherichia coliUrine Culture,Comprehensive: P5Oizrxoxgafm coli Flag: APatient: YUMI Keane Order: [id number] Page 3Culture: CULTURE URINE Status: Final ISOLATE [...] S S . . . . . .25242-2Kwclqpovwy S S . . . . . .267-5Imipenem S S . . . . . .279-0Levofloxacin R R . . . . . .35585- 8Meropenem S S . . . . . .6652-2Nitrofurantoin S S . . . . . .363-2Piperacillin/Tazobactam S S . . . . . .412-7Tetracycline S S . . . . . .496-0Tobramycin S S . . . . . .508- 2Trimethoprim/Sulfa S S . . . . . .516-5P1 Test performed by: [facility] #: [id number] [address] [place] [address] [id number] [facility] [address]Edqqffy Director : Frederick Garay MD NPI #:See Supervisor : 10/23/20.0654.XMT.SENT REF 10/23/20.XMT.SENT REF ID Date Data Source [id number] 10/19/2020 09:28:00 PM EDT [facility] Name Value Range Interpretation Code Description Data Melonie rce(s) Supporting Document(s) DRUG SCREEN URINE [facility] URINE DRUG SCREEN Amphetamine [Presence] in Urine by Screen method NEGATIVE NORMAL: N EGATIVE [facility] BARBITURATES NEGATIVE NORMAL: NEGATIVE [facility] BENZO NEGATIVE NORMAL: NEGATIVE [facility] COCAINE NEGATIVE NORMAL: NEGATIVE [facility] Tetrahydrocannabinol [Presence] in Urine PRESUMP POS NORMAL: NEGATIVE [facility] OPIATES NEGATIVE NORMAL: NEGATIVE [facility] Phencyclidine [Presence] in Urine by Screen method NEGATIVE NOR MAL: NEGATIVE [facility] \\BLDo\\URINE DRUG SCR EEN INTERPRETATION\\BLDx\\ THE CUTOFFF LEVELS FOR DETECTION ARE FOLLOWS: AMPHETAMINES 1000 ng/ml BARBITUARATES 200 ng/ml BENZODIAZEPINES 100 ng/ml THC 50 ng/ml PHENCYCLIDINE 25 ng/ml OPIATES 300 ng/ml COCAINE 300 ng/ml ALL POSITIVES ARE CONSIDERED PRESUMPTIVE POSITIVE CONFIRMATION WILL BE PERFORMED AT PHYSICIAN REQUEST. ID Date Data Source [id number] 10/19/2020 09:24:00 PM EDT [facility] Name Value Range Interpretation Code Description Data Melonie rce(s) Supporting Document(s) URINALYSIS [facility] sangeetha URINALYSIS SOURCE Clean Catch [facility] COLOR yellow NORMAL: Yellow [facility] CLARITY hazy NORMAL: Clear [facility] Specific gravity of Urine by Test strip 1.015 1.001 - 1.030 [facility] pH 6.5 5 - 9 [facility] Glucose [Mass/volume] in Urine by Test strip 250 NORMAL: Negat sabrina [facility] Bilirubin.total [Presence] in Urine by Test strip NEG NORMAL: Negative [facility] Ketones [Presence] in Urine by Test strip 150 NORMAL: Negative [facility] Protein [Mass/volume] in Urine by Test strip 30 NORMAL: Negat sabrina [facility] Nitrite [Presence] in Urine by Test strip POS NORMAL: Negative [facility] BLOOD 10 NORMAL: Negative [facility] Leukocyte esterase [Presence] in Urine by Test strip 100 JL L: Negative [facility] Urobilinogen [Mass/volume] in Urine by Test strip NOR less ruben n 1.0 mg/dL [facility] MICROSCOPIC See Below [facility] ital WBC 30 - 40 NORMAL: NONE SEEN [facility] Erythrocytes [#/volume] in Urine by Test strip 0 - 1 NORMAL: NON E SEEN [facility] EPITHELIAL FEW NORMAL: NONE SEEN [facility] Bacteria [Presence] in Urine sediment by Light microscopy 1+ SMALL NORMAL: NONE SEEN [facility] ID Date Data Source [id number] 10/19/2020 08:36:00 PM EDT [facility] Name Value Range Interpretation Code Description Data Melonie rce(s) Supporting Document(s) SITE RADIAL LT [facility] pH of Arterial blood 7.47 7.34 - 7.44 H [facility] Carbon dioxide [Partial pressure] in Blood 26.0 mm/HG 32.0 - 42.0 L [facility] Oxygen [Partial pressure] in Blood 86.0 mm/HG 75.0 - 100 [facility] Bicarbonate [Moles/volume] in Blood 18.3 meq/L 20.0 - 24.0 L [facility] TCO2 19.1 meq/L 21.0 - 25.0 L [facility] Base excess in Blood by calculation -3.7 -2.0 - 2.0 L [facility] O2 SAT 97.0 % 95.0 - 98.0 [facility] ital ID Date Data Source [id number] 10/19/2020 07:22:00 PM EDT [facility] [address] [place] [address] ---------NAME--------- NUMBER SEX AGE ADMIT DISC. XRAY# F/C TYPE YUMI HUFF N [id number] F 40 10/19/20 [id number] XBM E/R DATE OF : 1980 M/R# [id number] #: [phone] TR-02 LOCATION: EMERGENCY DEPT TRANSCRIBED: 10/19/20 19:[address] ABD //T// PELV W/[place] ORAL W/[place] [id number] COMPLETED:10/19/20 19:22 joceline [id number] Reason(s): Abdominal Pain [...] Name Value Range Interpretation Code Description Data [facility] rce(s) Supporting Document(s) ID Date Data Source [id number] 10/19/2020 07:44:00 PM EDT [facility] Name Value Range Interpretation Code Description [facility]s) CBC W/AUTOMATED DIFF [facility] COMPLETE BLOOD COUNT Leukocytes [#/volume] in Blood by Automated count 21.7 10^3/uL 4.2 - 11.0 H [facility] Erythrocytes [#/volume] in Blood by Automated count 5.39 10^6/uL 4. 20 - 5.40 [facility] Hemoglobin [Mass/volume] in Blood 15.8 g/dL 12.0 - 16.0 [facility] Hematocrit [Volume Fraction] of Blood by Automated count 45.3 % 3 7.0 - 47.0 [facility] Erythrocyte mean corpuscular volume [Entitic volume] by Auto mated count 84.0 fL 81.0 - 101 [facility] Erythrocyte mean corpuscular hemoglobin [Entitic mass] by Automated count 29.3 pg 27.0 - 34.0 [facility] Erythrocyte mean corpuscular hemoglobin concentration [Mass/volume] by Automated count 34.9 g/dL 31.0 - 36.0 [facility] Erythrocyte distribution width [Ratio] by Automated count 14.4 % 11.5 - 14.5 [facility] Platelets [#/volume] in Blood by Automated count 440 10^3/uL 150 - 45 0 [facility] Platelet mean volume [Entitic volume] in Blood by Automated count 10.3 fL 7.4 - 10.4 [facility] Neutrophils/100 leukocytes in Blood by Automated count 85.9 % 37. 0 - 80.0 H [facility] Lymphocytes/100 leukocytes in Blood by Manual count 10.3 % 25.0 - 40.0 L [facility] Monocytes/100 leukocytes in Blood by Automated count 2.8 % 3.0 - 8.0 L [facility] Eosinophils/100 leukocytes in Blood by Automated count 0.0 % 0.0 - 7.0 [facility] Basophils/100 leukocytes in Blood by Automated count 0.5 % 0.0 - 2.5 [facility] %IG 0.5 % 0.0 - 0.0 [facility] 0.0 % 0.0 - 0.0 [facility] al Neutrophils [#/volume] in Blood by Automated count 18.61 10^3/uL 2. 00 - 6.90 H [facility] Lymphocytes [#/volume] in Blood by Automated count 2.23 10^3/uL 0.60 - 3.40 [facility] Monocytes [#/volume] in Blood by Automated count 0.60 10^3/uL 0.00 - 0.90 [facility] Eosinophils [#/volume] in Blood by Automated count 0.01 10^3/uL 0.00 - 0.70 [facility] Basophils [#/volume] in Blood by Automated count 0.11 10^3/uL 0.00 - 0.20 [facility] #IG 0.11 10^3/uL 0.00 - 0.10 H [facility] #NRBC 0.00 10^3/uL 0.00 - 0.00 [facility] ospital MANUAL DIFF NOT INDICATED [facility] RBC MORPH NOT INDICATED [facility] ID Date Data Source [id number] 10/19/2020 07:44:00 PM EDT [facility] Name Value Range Interpretation Code Description Data Melonie rce(s) Supporting Document(s) TROPONIN T <0.01 NG/ML 0.00 - 0.10 [facility]spital TROPONIN T0.1 ng/ml Recommended as the c linical threshold value forTroponin T. ID Date Data Source [id number] 10/19/2020 07:44:00 PM EDT [facility] Name Value Range Interpretation Code Description Data Melonie rce(s) Supporting Document(s) COMPREHENSIVE METABOLIC PANEL [facility] COMPREHENSIVE METABOLIC PANEL Sodium [Moles/volume] in Serum or Plasma 138 mEq/L 134 - 153 [facility] Potassium [Moles/volume] in Serum or Plasma 4.4 mEq/L 3.6 - 5.0 [facility] Chloride [Moles/volume] in Serum or Plasma 99 mEq/L 98 - 107 [facility] Carbon dioxide, total [Moles/volume] in Serum or Plasma 17 MEQ/L 22 - 30 L [facility] Glucose [Mass/volume] in Serum or Plasma 230 MG/DL 70 - 99 H [facility] BUN 20 MG/DL 7 - 21 [facility] al Creatinine [Mass/volume] in Serum or Plasma 0.7 MG/DL 0.7 - 1.5 [facility] BUN/CREAT 29 8 - 27 H [facility] al Protein [Mass/volume] in Serum or Plasma 8.3 G/DL 6.3 - 8.2 H [facility] Albumin [Mass/volume] in Serum or Plasma 5.3 G/DL 3.9 - 5.0 H [facility] Globulin [Mass/volume] in Serum by calculation 3.0 GM/DL 2.4 - 3.2 [facility] A/G RATIO 1.8 0.8 - 2.0 [facility] Calcium [Mass/volume] in Serum or Plasma 10.5 MG/DL 8.4 - 10.2 H [facility] Bilirubin.total [Mass/volume] in Serum or Plasma 0.8 MG/DL 0.2 - 1.3 [facility] Alkaline phosphatase [Enzymatic activity/volume] in Serum or Plasma 94 U/L 38 - 126 [facility] Aspartate aminotransferase [Enzymatic activity/volume] in Serum or Plasma 11 U/L 5 - 40 [facility] Alanine aminotransferase [Enzymatic activity/volume] in Seru m or Plasma 12 U/L 7 - 56 [facility] Anion gap 3 in Serum or Plasma 22.0 mmol/L 8.0 - 16.0 H [facility] AGE 40 yrs [facility] NON-AA GFR >60 mL/min [facility] AFR AMER GFR >60 mL/min [facility] Male GFR In terprentation 20-49 [...] >32 mL/min Normal ID Date Data Source [id number] 10/19/2020 07:39:00 PM EDT [facility] Name Value Range Interpretation Code Description Data Melonie rce(s) Supporting Document(s) Ethanol [Moles/volume] in Blood <10.0 MG/DL [facility] ALCOHOL % 0.01 % 0.00 - 0.01 [facility] ital *FOR MEDICAL PURPOSES ONLY * ID Date Data Source [id number] 10/19/2020 07:39:00 PM EDT [facility] Name Value Range Interpretation Code Description Data Melonie rce(s) Supporting Document(s) Lipase [Enzymatic activity/volume] in Serum or Plasma 17 U/L 13 - 60 [facility] ID Date Data Source [id number] 05/13/2020 08:27:05 AM [facility] Current Problems: Impacted tooth (ICD-52 0.6) ([id number]) Dental Chart: Procedures:Type - CDT Code - [...] today's appointment. Recommended pt try using a night manager, hot/cold compresses/ and ibuprofen to help with [...] Assessment & Plan Problems:Added: Impacted tooth (ICD-520.6) ([id number]-F35.1) Name Value Range Interpretation Code Description Data Melonie rce(s) Supporting Document(s) Procedure Social History Code Duration Value Status Description Data Source(s ) Smoking 02/06/2021 12:00:00 AM EDT Current Smoker completed Curre nt Smoker eCW1 (Formerly [facility]) Smoking 02/06/2021 12:00:00 AM EDT Current Smoker completed Curre nt Smoker eCW1 (Formerly [facility]) Smoking 02/06/2021 12:00:00 AM EDT Current Smoker completed Curre nt Smoker eCW1 (Formerly [facility]) Smoking 02/06/2021 12:00:00 AM EDT Current Smoker completed Curre nt Smoker eCW1 ([facility]ly [facility]) Smoking 02/06/2021 12:00:00 AM EDT Current Smoker completed Curre nt Smoker eCW1 ([facility]ly [facility]) Smoking 02/06/2021 12:00:00 AM EDT Current Smoker completed Curre nt Smoker eCW1 ([facility]ly [facility]) Smoking 02/06/2021 12:00:00 AM EDT Current Smoker completed Curre nt Smoker eCW1 ([facility]ly [facility]) Smoking 02/06/2021 12:00:00 AM EDT Current Smoker completed Curre nt Smoker eCW1 (Formerly [facility]) Smoking 02/06/2021 12:00:00 AM EDT Current Smoker completed Curre nt Smoker eCW1 ([facility]ly [facility]) Smoking 02/06/2021 12:00:00 AM EDT Current Smoker completed Curre nt Smoker eCW1 ([facility]ly [facility]) Smoking 02/06/2021 12:00:00 AM EDT Current Smoker completed Curre nt Smoker eCW1 ([facility]ly [facility]) Smoking 11/21/2020 12:00:00 AM EDT Current Smoker completed Curre nt Smoker eCW1 ([facility]ly [facility]) Smoking 11/21/2020 12:00:00 AM EDT Current Smoker completed Curre nt Smoker eCW1 ([facility]ly [facility]) Smoking 11/21/2020 12:00:00 AM EDT Current Smoker completed Curre nt Smoker eCW1 ([facility]ly [facility]) Smoking 11/21/2020 12:00:00 AM EDT Current Smoker completed Curre nt Smoker eCW1 ([facility]ly [facility]) Smoking 11/21/2020 12:00:00 AM EDT Current Smoker completed Curre nt Smoker eCW1 ([facility]ly [facility]) Smoking 11/21/2020 12:00:00 AM EDT Current Smoker completed Curre nt Smoker eCW1 ([facility]ly [facility]) Smoking 11/21/2020 12:00:00 AM EDT Current Smoker completed Curre nt Smoker eCW1 ([facility]ly [facility]) Smoking 10/24/2020 12:00:00 AM EDT Current Smoker completed Curre nt Smoker eCW1 ([facility]ly [facility]) Smoking 10/24/2020 12:00:00 AM EDT Current Smoker completed Curre nt Smoker eCW1 ([facility]ly [facility]) Smoking 10/24/2020 12:00:00 AM EDT Current Smoker completed Curre nt Smoker eCW1 ([facility]ly [facility]) Smoking 10/24/2020 12:00:00 AM EDT Current Smoker completed Curre nt Smoker eCW1 ([facility]ly [facility]) Smoking 10/24/2020 12:00:00 AM EDT Current Smoker completed Curre nt Smoker eCW1 ([facility]ly [facility]) Smoking 10/24/2020 12:00:00 AM EDT Current Smoker completed Curre nt Smoker eCW1 ([facility]ly [facility]) Smoking 10/24/2020 12:00:00 AM EDT Current Smoker completed Curre nt Smoker eCW1 ([facility]ly [facility]) Smoking 09/24/2020 12:00:00 AM EDT Current Smoker completed Curre nt Smoker eCW1 ([facility]ly [facility]) Smoking 09/24/2020 12:00:00 AM EDT Current Smoker completed Curre nt Smoker eCW1 ([facility]ly [facility]) Smoking 09/24/2020 12:00:00 AM EDT Current Smoker completed Curre nt Smoker eCW1 ([facility]ly [facility]) Smoking 09/24/2020 12:00:00 AM EDT Current Smoker completed Curre nt Smoker eCW1 ([facility]ly [facility]) Smoking 09/24/2020 12:00:00 AM EDT Current Smoker completed Curre nt Smoker eCW1 ([facility]ly [facility]) Smoking 09/24/2020 12:00:00 AM EDT Current Smoker completed Curre nt Smoker eCW1 ([facility]ly [facility]) Smoking 09/01/2020 12:00:00 AM EST Current Smoker completed Curre nt Smoker eCW1 ([facility]) Smoking 09/01/2020 12:00:00 AM EST Current Smoker completed Curre nt Smoker eCW1 ([facility]ly [facility]) Smoking 09/01/2020 12:00:00 AM EST Current Smoker completed Curre nt Smoker eCW1 ([facility]ly [facility]) Smoking 07/18/2020 12:00:00 AM EST Current Smoker completed Curre nt Smoker eCW1 ([facility]ly [facility]) Smoking 07/18/2020 12:00:00 AM EST Current Smoker completed Curre nt Smoker eCW1 ([facility]ly [facility]) Smoking 07/18/2020 12:00:00 AM EST Current Smoker completed Curre nt Smoker eCW1 ([facility]) Smoking 07/18/2020 12:00:00 AM EST Current Smoker completed Curre nt Smoker eCW1 ([facility]ly [facility]) Smoking 06/26/2020 12:00:00 AM EST Current Smoker completed Curre nt Smoker eCW1 ([facility]) Smoking 06/26/2020 12:00:00 AM EST Current Smoker completed Curre nt Smoker eCW1 ([facility]) Smoking 06/26/2020 12:00:00 AM EST Current Smoker completed Curre nt Smoker eCW1 ([facility]) Smoking 06/26/2020 12:00:00 AM EST Current Smoker completed Curre nt Smoker eCW1 (Formerly [facility]) Vital Signs ID Date Data Source UNK Name Value Range Interpretation Code Description Data Source(s) Body weight 160.2 [lb_av] 160.2 [lb_av] eCW1 ([facility]) Body height 62 [in_i] 62 [in_i] eCW1 ([facility]) Body mass index (BMI) [Ratio] 29.30 kg/m2 29.30 kg/m2 eCW1 ([facility]) Heart rate 93 /min 93 /min eCW1 ([facility]) Respiratory rate 18 /min 18 /min eCW1 ([facility]) Body temperature 98.2 [degF] 98.2 [degF] eCW1 ( [facility]) Systolic blood pressure 130 mm[Hg] 130 mm[Hg] e CW1 ([facility]) Diastolic blood pressure 70 mm[Hg] 70 mm[Hg] eCW1 ([facility]) Body weight 163.6 [lb_av] 163.6 [lb_av] eCW1 ([facility]) Body height 62 [in_i] 62 [in_i] eCW1 ([facility]) Body mass index (BMI) [Ratio] 29.92 kg/m2 29.92 kg/m2 eCW1 ([facility]) Heart rate 98 /min 98 /min eCW1 ([facility]) Respiratory rate 18 /min 18 /min eCW1 ([facility]) Body temperature 98.5 [degF] 98.5 [degF] eCW1 ( [facility]) Systolic blood pressure 126 mm[Hg] 126 mm[Hg] e CW1 ([facility]) Diastolic blood pressure 84 mm[Hg] 84 mm[Hg] eCW1 ([facility]) Body weight 157.2 [lb_av] 157.2 [lb_av] eCW1 ([facility]) Body height 62 [in_i] 62 [in_i] eCW1 ([facility]) Systolic blood pressure 14 mm[Hg] 14 mm[Hg] e CW1 ([facility]) Diastolic blood pressure 90 mm[Hg] 90 mm[Hg] eCW1 ([facility]) Body temperature 97.9 [degF] 97.9 [degF] eCW1 ( [facility]) Body mass index (BMI) [Ratio] 28.75 kg/m2 28.75 kg/m2 eCW1 ([facility]) Heart rate 106 /min 106 /min eCW1 ([facility]) Respiratory rate 18 /min 18 /min eCW1 ([facility]) Body weight 155 [lb_av] 155 [lb_av] eCW1 ([facility]) Body height 62 [in_i] 62 [in_i] eCW1 ([facility]) Body mass index (BMI) [Ratio] 28.35 kg/m2 28.35 kg/m2 eCW1 ([facility]) Heart rate 80 /min 80 /min eCW1 ([facility]) Respiratory rate 16 /min 16 /min eCW1 ([facility]) Body temperature 98.3 [degF] 98.3 [degF] eCW1 ( [facility]) Systolic blood pressure 132 mm[Hg] 132 mm[Hg] e CW1 ([facility]) Diastolic blood pressure 80 mm[Hg] 80 mm[Hg] eCW1 ([facility]) Body weight 146 [lb_av] 146 [lb_av] eCW1 ([facility]) Body height 62 [in_i] 62 [in_i] eCW1 ([facility]) Body mass index (BMI) [Ratio] 26.70 kg/m2 26.70 kg/m2 eCW1 ([facility]) Heart rate 84 /min 84 /min eCW1 ([facility]) Respiratory rate 18 /min 18 /min eCW1 ([facility]) Body temperature 98.7 [degF] 98.7 [degF] eCW1 ( [facility]) Systolic blood pressure 130 mm[Hg] 130 mm[Hg] e CW1 ([facility]) Diastolic blood pressure 82 mm[Hg] 82 mm[Hg] eCW1 ([facility]) Body weight 154.4 [lb_av] 154.4 [lb_av] eCW1 ([facility]) Systolic blood pressure 124 mm[Hg] 124 mm[Hg] e CW1 ([facility]) Diastolic blood pressure 84 mm[Hg] 84 mm[Hg] eCW1 ([facility]) Body height 62 [in_i] 62 [in_i] eCW1 ([facility]) Body mass index (BMI) [Ratio] 28.24 kg/m2 28.24 kg/m2 eCW1 ([facility]) Heart rate 94 /min 94 /min eCW1 ([facility]) Respiratory rate 17 /min 17 /min eCW1 ([facility]) Body temperature 97.3 [degF] 97.3 [degF] eCW1 ( [facility]) Diastolic blood pressure 86 mm[Hg] 86 mm[Hg] eCW1 ([facility]) Systolic blood pressure 130 mm[Hg] 130 mm[Hg] e CW1 ([facility]) Body temperature 97.7 [degF] 97.7 [degF] eCW1 ( [facility]) Respiratory rate 17 /min 17 /min eCW1 ([facility]) Heart rate 102 /min 102 /min eCW1 ([facility]) Body mass index (BMI) [Ratio] 27.98 kg/m2 27.98 kg/m2 eCW1 ([facility]) Body height 62 [in_i] 62 [in_i] eCW1 ([facility]) Body weight 153 [lb_av] 153 [lb_av] eCW1 ([facility]) Patient Treatment Plan of Care Planned Activity Planned Date Details Description Data Source (s) Acetaminophen 325 MG / Hydrocodone Bitartrate 7.5 MG O ral Tablet 04/16/2021 12:00:00 AM EDT eCW1 ([facility]) Alprazolam 1 MG Oral Tablet 04/07/2021 12:00:00 AM EDT eCW1 ([facility]) Alprazolam 1 MG Oral Tablet 04/07/2021 12:00:00 AM EDT eCW1 ([facility]) Acetaminophen 325 MG / Hydrocodone Bitartrate 7.5 MG O ral Tablet 03/23/2021 12:00:00 AM EDT eCW1 ([facility]) Acetaminophen 325 MG / Hydrocodone Bitartrate 7.5 MG O ral Tablet 03/23/2021 12:00:00 AM EDT eCW1 ([facility]) Acetaminophen 325 MG / Hydrocodone Bitartrate 7.5 MG O ral Tablet 03/23/2021 12:00:00 AM EDT eCW1 ([facility]) Acetaminophen 325 MG / Hydrocodone Bitartrate 7.5 MG O ral Tablet 03/23/2021 12:00:00 AM EDT eCW1 ([facility]) Alprazolam 1 MG Oral Tablet 03/13/2021 12:00:00 AM EDT eCW1 ([facility]) Alprazolam 1 MG Oral Tablet 03/13/2021 12:00:00 AM EDT eCW1 ([facility]) Alprazolam 1 MG Oral Tablet 03/13/2021 12:00:00 AM EDT eCW1 ([facility]) Alprazolam 1 MG Oral Tablet 03/13/2021 12:00:00 AM EDT eCW1 ([facility]) Acetaminophen 325 MG / Hydrocodone Bitartrate 7.5 MG O ral Tablet 2021 12:00:00 AM EDT eCW1 ([facility]) Acetaminophen 325 MG / Hydrocodone Bitartrate 7.5 MG O ral Tablet 2021 12:00:00 AM EDT eCW1 ([facility]) Alprazolam 1 MG Oral Tablet 02/13/2021 12:00:00 AM EDT eCW1 ([facility]) Alprazolam 1 MG Oral Tablet 02/13/2021 12:00:00 AM EDT eCW1 ([facility]) Alprazolam 1 MG Oral Tablet 02/13/2021 12:00:00 AM EDT eCW1 ([facility]) Alprazolam 1 MG Oral Tablet 02/13/2021 12:00:00 AM EDT eCW1 ([facility]) Alprazolam 1 MG Oral Tablet 02/13/2021 12:00:00 AM EDT eCW1 ([facility]) PARoxetine HCl 10 MG 02/06/2021 12:00:00 AM EDT eCW1 ([facility]) PARoxetine HCl 10 MG 02/06/2021 12:00:00 AM EDT eCW1 ([facility]) PARoxetine HCl 10 MG 02/06/2021 12:00:00 AM EDT eCW1 ([facility]) PARoxetine HCl 10 MG 02/06/2021 12:00:00 AM EDT eCW1 ([facility]) PARoxetine HCl 10 MG 02/06/2021 12:00:00 AM EDT eCW1 ([facility]) Acetaminophen 325 MG / Hydrocodone Bitartrate 7.5 MG O ral Tablet 01/23/2021 12:00:00 AM EDT eCW1 ([facility]) Acetaminophen 325 MG / Hydrocodone Bitartrate 7.5 MG O ral Tablet 12/28/2020 12:00:00 AM EDT eCW1 ([facility]) Acetaminophen 325 MG / Hydrocodone Bitartrate 7.5 MG O ral Tablet 12/28/2020 12:00:00 AM EDT eCW1 ([facility]) Acetaminophen 325 MG / Hydrocodone Bitartrate 7.5 MG O ral Tablet 11/30/2020 12:00:00 AM EDT eCW1 ([facility]) Acetaminophen 325 MG / Hydrocodone Bitartrate 7.5 MG O ral Tablet 11/30/2020 12:00:00 AM EDT eCW1 ([facility]) Acetaminophen 325 MG / Hydrocodone Bitartrate 7.5 MG O ral Tablet 11/30/2020 12:00:00 AM EDT eCW1 ([facility]) Acetaminophen 325 MG / Hydrocodone Bitartrate 7.5 MG O ral Tablet 10/31/2020 12:00:00 AM EDT eCW1 ([facility]) Acetaminophen 325 MG / Hydrocodone Bitartrate 7.5 MG O ral Tablet 10/31/2020 12:00:00 AM EDT eCW1 ([facility]) Acetaminophen 325 MG / Hydrocodone Bitartrate 7.5 MG O ral Tablet 10/31/2020 12:00:00 AM EDT eCW1 ([facility]) Acetaminophen 325 MG / Hydrocodone Bitartrate 7.5 MG O ral Tablet 10/31/2020 12:00:00 AM EDT eCW1 ([facility]) Acetaminophen 325 MG / Hydrocodone Bitartrate 7.5 MG O ral Tablet 10/31/2020 12:00:00 AM EDT eCW1 ([facility]) Lisinopril 5 MG Oral Tablet 10/25/2020 12:00:00 AM EDT eCW1 ([facility]) Lisinopril 5 MG Oral Tablet 10/25/2020 12:00:00 AM EDT eCW1 ([facility]) Lisinopril 5 MG Oral Tablet 10/25/2020 12:00:00 AM EDT eCW1 ([facility]) Lisinopril 5 MG Oral Tablet 10/25/2020 12:00:00 AM EDT eCW1 ([facility]) Lisinopril 5 MG Oral Tablet 10/25/2020 12:00:00 AM EDT eCW1 ([facility]) Lisinopril 5 MG Oral Tablet 10/25/2020 12:00:00 AM EDT eCW1 ([facility]) Lisinopril 5 MG Oral Tablet 10/25/2020 12:00:00 AM EDT eCW1 ([facility]) Acetaminophen 325 MG / Hydrocodone Bitartrate 7.5 MG O ral Tablet 10/05/2020 12:00:00 AM EDT eCW1 ([facility]) Acetaminophen 325 MG / Hydrocodone Bitartrate 7.5 MG O ral Tablet 10/05/2020 12:00:00 AM EDT eCW1 ([facility]) Acetaminophen 325 MG / Hydrocodone Bitartrate 7.5 MG O ral Tablet 10/05/2020 12:00:00 AM EDT eCW1 ([facility]) Acetaminophen 325 MG / Hydrocodone Bitartrate 7.5 MG O ral Tablet 10/05/2020 12:00:00 AM EDT eCW1 ([facility]) Acetaminophen 325 MG / Hydrocodone Bitartrate 7.5 MG O ral Tablet 10/05/2020 12:00:00 AM EDT eCW1 ([facility]) Acetaminophen 325 MG / Hydrocodone Bitartrate 7.5 MG O ral Tablet 10/05/2020 12:00:00 AM EDT eCW1 ([facility]) Acetaminophen 325 MG / Hydrocodone Bitartrate 7.5 MG O ral Tablet 09/07/2020 12:00:00 AM EST eCW1 ([facility]) Acetaminophen 325 MG / Hydrocodone Bitartrate 7.5 MG O ral Tablet 09/07/2020 12:00:00 AM EST eCW1 ([facility]) Acetaminophen 325 MG / Hydrocodone Bitartrate 7.5 MG O ral Tablet 09/07/2020 12:00:00 AM EST eCW1 ([facility]) BD Pen Needle Mini U/F 31G X 5 MM 09/01/2020 12:00:00 AM EST eCW1 ([facility]) Basaglar KwikPen 100 UNIT/ML 09/01/2020 12:00:00 AM EST eCW1 ([facility]) Basaglar KwikPen 100 UNIT/ML 09/01/2020 12:00:00 AM EST eCW1 ([facility]) BD Pen Needle Mini U/F 31G X 5 MM 09/01/2020 12:00:00 AM EST eCW1 ([facility]) Basaglar KwikPen 100 UNIT/ML 09/01/2020 12:00:00 AM EST eCW1 ([facility]) BD Pen Needle Mini U/F 31G X 5 MM 09/01/2020 12:00:00 AM EST eCW1 ([facility]) Basaglar KwikPen 100 UNIT/ML 09/01/2020 12:00:00 AM EST eCW1 ([facility]) BD Pen Needle Mini U/F 31G X 5 MM 09/01/2020 12:00:00 AM EST eCW1 ([facility]) Basaglar KwikPen 100 UNIT/ML 09/01/2020 12:00:00 AM EST eCW1 ([facility]) BD Pen Needle Mini U/F 31G X 5 MM 09/01/2020 12:00:00 AM EST eCW1 ([facility]) BD Pen Needle Mini U/F 31G X 5 MM 09/01/2020 12:00:00 AM EST eCW1 ([facility]) Basaglar KwikPen 100 UNIT/ML 09/01/2020 12:00:00 AM EST eCW1 ([facility]) BD Pen Needle Mini U/F 31G X 5 MM 09/01/2020 12:00:00 AM EST eCW1 ([facility]) Basaglar KwikPen 100 UNIT/ML 09/01/2020 12:00:00 AM EST eCW1 ([facility]) BD Pen Needle Mini U/F 31G X 5 MM 09/01/2020 12:00:00 AM EST eCW1 ([facility]) Fluconazole 150 MG Oral Tablet 09/01/2020 12:00:00 AM EST eCW1 ([facility]) Basaglar KwikPen 100 UNIT/ML 09/01/2020 12:00:00 AM EST eCW1 ([facility]) BD Pen Needle Mini U/F 31G X 5 MM 09/01/2020 12:00:00 AM EST eCW1 ([facility]) Fluconazole 150 MG Oral Tablet 09/01/2020 12:00:00 AM EST eCW1 ([facility]) Basaglar KwikPen 100 UNIT/ML 09/01/2020 12:00:00 AM EST eCW1 ([facility]) BD Pen Needle Mini U/F 31G X 5 MM 09/01/2020 12:00:00 AM EST eCW1 (Formerly [facility]) Fluconazole 150 MG Oral Tablet 09/01/2020 12:00:00 AM EST eCW1 (Formerly [facility]) Basaglar KwikPen 100 UNIT/ML 09/01/2020 12:00:00 AM EST eCW1 (Formerly [facility]) Acetaminophen 325 MG / Hydrocodone Bitartrate 7.5 MG O ral Tablet 08/06/2020 12:00:00 AM EST eCW1 ([facility]) Acetaminophen 325 MG / Hydrocodone Bitartrate 7.5 MG O ral Tablet 08/06/2020 12:00:00 AM EST eCW1 ([facility]) Acetaminophen 325 MG / Hydrocodone Bitartrate 7.5 MG O ral Tablet 08/06/2020 12:00:00 AM EST eCW1 ([facility]) pioglitazone 15 MG Oral Tablet 07/18/2020 12:00:00 AM EST eCW1 (Formerly [facility]) Fluconazole 150 MG Oral Tablet 07/18/2020 12:00:00 AM EST eCW1 (Formerly [facility]) pioglitazone 15 MG Oral Tablet 07/18/2020 12:00:00 AM EST eCW1 (Formerly [facility]) Fluconazole 150 MG Oral Tablet 07/18/2020 12:00:00 AM EST eCW1 (Formerly [facility]) Fluconazole 150 MG Oral Tablet 07/18/2020 12:00:00 AM EST eCW1 (Formerly [facility]) pioglitazone 15 MG Oral Tablet 07/18/2020 12:00:00 AM EST eCW1 (Formerly [facility]) pioglitazone 15 MG Oral Tablet 07/18/2020 12:00:00 AM EST eCW1 (Formerly [facility]) Fluconazole 150 MG Oral Tablet 07/18/2020 12:00:00 AM EST eCW1 (Formerly [facility]) Acetaminophen 325 MG / Hydrocodone Bitartrate 7.5 MG O ral Tablet 07/07/2020 12:00:00 AM EST eCW1 ([facility]) Acetaminophen 325 MG / Hydrocodone Bitartrate 7.5 MG O ral Tablet 07/07/2020 12:00:00 AM EST eCW1 ([facility]) 24 HR Metformin hydrochloride 500 MG Extended Release Oral Tablet 06/26/2020 12:00:00 AM EST eCW1 ([facility]) 24 HR Metformin hydrochloride 500 MG Extended Release Oral Tablet 06/26/2020 12:00:00 AM EST eCW1 ([facility]) 24 HR Metformin hydrochloride 500 MG Extended Release Oral Tablet 06/26/2020 12:00:00 AM EST eCW1 ([facility]) 24 HR Metformin hydrochloride 500 MG Extended Release Oral Tablet 06/26/2020 12:00:00 AM EST eCW1 ([facility])
[2021-04-23] MEDS: HumaLOG INSULIN (NovoLOG) PER UNIT SC SCH (21:05)
[2021-04-23 21:59] LABS: RSV AMPLIFICATION NEGATIVE (NEGATIVE)
[2021-04-24] MEDS ORDERED: SUMAtriptan SUCCINATE 25 MG TAB PO PRN (00:50)
[2021-04-24] MEDS ORDERED: ALBUTEROL 90 MCG/ACT 8GM HFA INHALER INH PRN (00:50)
[2021-04-24] MEDS: ALPRAZolam 0.5 MG TAB PO PRN ×2 (01:30→12:11)
[2021-04-24] MEDS: NS 1,000 ML IV SCH ×4 (03:10→20:33)
[2021-04-24] MEDS: HumaLOG INSULIN (NovoLOG) PER UNIT SC SCH ×4 (06:00→17:33)
[2021-04-24 09:16] LABS: HEMATOCRIT 46.5 % (36.0-47.0); HEMOGLOBIN 15.7 g/dl (12.0-15.5); MEAN CORPUSCULAR HEMOGLOBIN 28.9 pg (27.0-33.0); MEAN CORPUSCULAR HGB CONC 33.8 g/dl (32.0-36.5); MEAN CORPUSCULAR VOLUME 85.5 fl (80.0-96.0); PLATELET COUNT, AUTOMATED 377 10^3/uL (150-450); RED BLOOD COUNT 5.44 10^6/uL (4.00-5.40); WHITE BLOOD COUNT 17.3 10^3/uL (4.0-10.0)
[2021-04-24 09:43] LABS: BLOOD UREA NITROGEN 11 MG/DL (7-18); CARBON DIOXIDE LEVEL 24 MEQ/L (21-32); CHLORIDE LEVEL 108 MEQ/L (98-107); CREATININE FOR GFR 0.95 MG/DL (0.55-1.30); GLOMERULAR FILTRATION RATE > 60.0 (>60); GLUCOSE, FASTING 118 MG/DL (70-100); POTASSIUM SERUM 3.6 MEQ/L (3.5-5.1); SODIUM LEVEL 139 MEQ/L (136-145)
[2021-04-24 09:50] LABS: HEMOGLOBIN A1c 7.1 %
[2021-04-24] MEDS: LEVEMIR (INSULIN DETEMIR) 1 UNITS/0.01ML SC SCH (10:13)
[2021-04-24] MEDS ORDERED: PIPERACILLIN/TAZOBACTAM SOD 2.25 GM in D5W MINI-BAG PLUS 50 ML IV SCH (10:20)
[2021-04-24] MEDS: PIPERACILLIN/TAZOBACTAM SOD 3.375 GM in D5W MINI-BAG PLUS 50 ML IV SCH ×2 (12:11→17:13)
[2021-04-24] MEDS: MORPHINE 2 MG/ML 1ML VIAL (J2270) IV PRN ×3 (12:12→20:43)
[2021-04-24] MEDS: PARoxetine 10MG TABLET PO SCH (12:37)
--- NOTE | 2021-04-24 14:57 | IPNPDOC ---
Date Seen The patient was seen on 04/24/21. Progress Note SUBJECTIVE: Patient is a 41-year-old female with likely urosepsis secondary to UTI. Patient states day before yesterday she was feeling sick (nausea and vomiting). Yesterday she states that in the morning she developed right-sided back pain in the kidney area that felt like a pinched nerve which eventually radiated to her whole back (centered around right side). She states that she was unable to lie still due to the pain and was unable to lie on her back. She said the only thing that helped was taking a hot shower because she was not able to swallow medications due to nausea and vomiting. She said at the worst time, the pain was 10 out of 10 with 10 being the worst. While in the ED after receiving pain meds, she reported the pain was at a 6 or 7 out of 10. Along with the nausea vomiting pain, patient also states that her face was tingling when she woke up. She also reported that her last bowel movement was about a week ago because she has been able to eat last 2 days. Of note patient was admitted to [facility] inpatient May 25, 2020 for pyelonephritis of the right kidney, and presented to the ED with UTI on September 01, 2020. Patient's urine culture during admission in May resulted in E. coli ESBL. Patient has not been vaccinated for COVID-19. Review of system: Constitutional: Reports sweating; denies fevers, chills Cardiac: Reported chest pain (yesterday, patient likely related to anxiety) Gastrointestinal: Reports nausea, vomiting, and decreased intake of food and fluids; denies diarrhea; denies current abdominal pain or suprapubic tenderness Genitourinary: Denies dysuria, hematuria Neurologic: Reported facial tingling and dizziness yesterday; denies headache OBJECTIVE PHYSICAL EXAMINATION: VITAL SIGNS: Please see below. GENERAL: 41-year-old female, lying in bed in ER, no acute distress HEENT: Head normocephalic atraumatic CARDIOVASCULAR: Regular rate and rhythm, no murmurs, no rubs, no gallops. RESPIRATORY: Clear to auscultation bilaterally, no murmurs, no rubs, no gallops. ABDOMINAL: Normoactive bowel sounds, tender to palpation throughout, no rebound tenderness or guarding present Genitourinary: Negative Vinicius sign bilaterally EXTREMITIES: 2+ radial pulses and dorsalis pedis pulses NEUROLOGICAL: No focal deficits appreciated LABORATORY DATA, IMAGING STUDIES, MICROBIOLOGY: Please see below. Imaging: Abdomen pelvis CT 04/23/2021: No CT evidence of acute intra-abdominal or pelvic pathology. Kidneys and ureters showed mild right renal cortical scarring, no masses, no radiodense calculi, no hydronephrosis Microbiology: Blood and urine cultures pending Echocardiogram: . DVT prophylaxis ordered?: Teds and sequentials ASSESSMENT AND PLAN: This is a 41-year-old female back pain and UTI secondary to urosepsis. PROBLEMS: Sepsis 2/2 pyelonephritis -Her main symptoms are vomiting, new right mid back pain and frequent urination -Her SIRS criteria include tachypnea, leucocytosis -She also has lactic acidosis -Telemetry / -Ceftriaxone changed to Zosyn IVF -Acetaminophen PRN for fever / target MAP at of least 65 to 70 -f/u Is and Os with target UOP of at least 0.5 ml/kg/H / -f/u FSBS w target serum glucose 140-180 while acutely ill / - Zofran for vomiting & Toradol for pain -Urinalysis was positive for leukocytes, nitrites, bacteria Erythrocytosis likely 2/2 hemoconcentration -Plan: IVF DM1 Plan: f/u FSBS / hypoglycemia protocol / sliding scale insulin / hold oral anti- glycemic / -F/u A1C (target A1C is <7 to 6.5%) -Decrease long acting insulin from 28 to 10 units daily for now/ -Her PCP may consider referral to the [facility] to switch the patient from basal bolus injection to continuous subcutaneous insulin infusion which has been shown to produced small improvements in A1C, improve QOL and reduce episodes of severe hypoglycemia Anxiety Depression Plan: resume Paroxetine & alprazolam Chronic back pain Plan: resume home hydrocodone w acetaminophen Migraines Plan: resume sumatriptan Tobacco & THC abuse Plan: smoking cessation education Chronic hip and lower back pain Plan: IV morphine and Toradol until she is able to tolerate PO Class 1 Obesity complicates care DVT Px w SCDs (she is ambulator and her Mayra score is low) Dispo: home after at least 2 midnight's stay VS, I&O, 24H, Fishbone Vital Signs/I&O Vital Signs Date Time Temp Pulse Resp B/P (MAP) Pulse Ox O2 Delivery O2 Flow Rate FiO2 04/24/21 12:37 98.0 89 16 133/83 (100) 98 04/23/21 19:55 Room Air Laboratory Data 24H LABS Laboratory Tests 2 04/23/21 16:48: Immature Granulocyte % (Auto) 0.4, Neutrophils (%) (Auto) 85.4H, Lymphocytes (%) (Auto) 10.1L, Monocytes (%) (Auto) 3.1, Eosinophils (%) (Auto) 0.5, Basophils (%) (Auto) 0.5, Neutrophils # (Auto) 17.9H, Lymphocytes # (Auto) 2.1, Monocytes # (Auto) 0.6, Eosinophils # (Auto) 0.1, Basophils # (Auto) 0.1, Nucleated Red Blood Cells % (auto) 0.0, Urine Color RICHELLE, Urine Appearance CLOUDYH, Urine pH 5.0, Urine Specific [place] 1.023, Urine Protein 2+H, Urine Glucose (UA) 1+H, Urine Ketones 1+H, Urine Blood 1+H, Urine Nitrite POSITIVEH, Urine Bilirubin NEGATIVE, Urine Urobilinogen 0.2, Urine Leukocyte Esterase 2+H, Urine WBC (Auto) 141H, Urine RBC (Auto) 8H, Urine Hyaline Casts (Auto) 0, Urine Bacteria (Auto) 1+H, Urine Squamous Epithelial Cells 17, Urine Mucus (Auto) SMALL, Urine Sperm (Auto) , Total Bilirubin 1.0, Direct Bilirubin 0.2, Aspartate Amino Transf (AST/SGOT) 13, Alanine Aminotransferase (ALT/SGPT) 23, Alkaline Phosphatase 95, Total Protein 8.4H, Albumin 4.8, Albumin/Globulin Ratio 1.3, Lipase 51L 04/23/21 16:54: Urine Opiates Screen POSITIVEH, Urine Methadone Screen NEGATIVE, Urine Barbiturates Screen NEGATIVE, Urine Phencyclidine Screen NEGATIVE, Urine Am phetamines Screen NEGATIVE, Urine Benzodiazepines Screen NEGATIVE, Urine Cocaine Metabolite Screen NEGATIVE, Urine Cannabinoids Screen POSITIVEH 04/23/21 17:07: POC Lactate (Misc Panel) 3.09*H 04/23/21 17:55: POC Glucose (Misc Panel) 209H, POC Sodium (Misc Panel) 139, POC Potassium (Misc Panel) 4.1, POC Chloride (Misc Panel) 105, POC Total CO2 (Misc Panel) 18.0L, POC Blood Urea Nitrogen (Misc Panel 11, POC Ionized Calcium (Misc Panel) 4.5, POC Creatinine (Misc Panel) 0.7, POC Hematocrit (Misc Panel) 54.0H 04/23/21 20:24: Coronavirus (COVID-19)(PCR) NEGATIVE, Influenza Type A (RT-PCR) NEGATIVE, Influenza Type B (RT-PCR) NEGATIVE, Respiratory Syncytial Virus (PCR) NEGATIVE 04/23/21 23:34: Lactic Acid Followup at 4 Hours 2.2*H 04/24/21 00:41: Bedside Glucose (Misc Panel) 215H 04/24/21 06:11: Bedside Glucose (Misc Panel) 173H 04/24/21 09:00: Nucleated Red Blood Cells % (auto) 0.0, Anion Gap 7L, Glomerular Filtration Rate > 60.0, Estimated Mean Plasma Glucose 157H, Hemoglobin A1c 7.1, Lactic Acid Level 1.0, Calcium Level 9.0 04/24/21 12:21: Bedside Glucose (Misc Panel) 122H CBC/BMP Laboratory Tests 04/23/21 16:48 04/24/21 09:00 Microbiology Microbiology 04/23/21 Blood Culture, Received Pending 04/23/21 Blood Culture, Received Pending 04/23/21 Urine Culture, Received Pending GME ATTESTATION GME ATTESTATION My faculty preceptor for this patient encounter was physically present during the encounter and was fully available. All aspects of the patient interview, examination, medical decision making process, and medical care plan development were reviewed and approved by the faculty preceptor. The faculty preceptor is aware and concurs with the plan as stated in the body of this note and will at test to such by his/her cosignature. Rob Mccabe DO Apr 24, 2021 14:57
[2021-04-24 16:40] VITALS: BP 120/75
[2021-04-24] MEDS: MOM 30ML SUSPENSION UDC PO PRN (17:11)
[2021-04-24] MEDS ORDERED: cefTRIAXone SOD 1 GM in D5W MINI-BAG PLUS 50 ML IV SCH (20:00)
[2021-04-24 22:00] VITALS: BP 121/75
[2021-04-25] MEDS: PIPERACILLIN/TAZOBACTAM SOD 3.375 GM in D5W MINI-BAG PLUS 50 ML IV SCH ×2 (00:06→06:07)
[2021-04-25] MEDS: ALPRAZolam 0.5 MG TAB PO PRN ×2 (00:07→09:03)
[2021-04-25] MEDS: MORPHINE 2 MG/ML 1ML VIAL (J2270) IV PRN ×3 (00:09→09:04)
[2021-04-25] MEDS: NS 1,000 ML IV SCH (05:56)
[2021-04-25 06:00] VITALS: BP 134/76
[2021-04-25] MEDS: HumaLOG INSULIN (NovoLOG) PER UNIT SC SCH ×3 (06:16→12:37)
[2021-04-25] MEDS ORDERED: BACTRIM 160MG/800MG DS TAB PO SCH (09:00)
[2021-04-25] MEDS: PARoxetine 10MG TABLET PO SCH (09:03)
[2021-04-25] MEDS: LEVEMIR (INSULIN DETEMIR) 1 UNITS/0.01ML SC SCH (09:03)
[2021-04-25] MEDS: MOM 30ML SUSPENSION UDC PO PRN (09:10)
[2021-04-25] MEDS ORDERED: ANEXSIA, NORCO 7.5MG/325MG TABLET(HYDROCODONE/APAP) PO PRN (09:20)
[2021-04-25] MEDS ORDERED: ALPRAZolam 0.5 MG TAB PO PRN ×2 (09:20→21:00)
[2021-04-25 09:34] LABS: BASO # 0.1 10^3/uL (0.0-0.2); BASO % 0.7 % (0.0-1.0); EOS # 0.1 10^3/uL (0.0-0.5); EOS % 1.4 % (0.0-3.0); HEMATOCRIT 39.1 % (36.0-47.0); LYMPH # 1.7 10^3/uL (1.5-5.0); LYMPH % 18.7 % (24.0-44.0); MEAN CORPUSCULAR HEMOGLOBIN 29.6 pg (27.0-33.0); MEAN CORPUSCULAR HGB CONC 33.8 g/dl (32.0-36.5); MEAN CORPUSCULAR VOLUME 87.7 fl (80.0-96.0); MONO # 0.7 10^3/uL (0.0-0.8); MONO % 7.2 % (2.0-8.0); NEUTROPHILS # 6.6 10^3/uL (1.5-8.5); NEUTROPHILS % 71.7 % (36.0-66.0); RED BLOOD COUNT 4.46 10^6/uL (4.00-5.40); WHITE BLOOD COUNT 9.2 10^3/uL (4.0-10.0)
[2021-04-25 09:43] LABS: BLOOD UREA NITROGEN 7 MG/DL (7-18); CALCIUM LEVEL 8.1 MG/DL (8.5-10.1); CARBON DIOXIDE LEVEL 26 MEQ/L (21-32); CHLORIDE LEVEL 108 MEQ/L (98-107); CREATININE FOR GFR 0.76 MG/DL (0.55-1.30); GLOMERULAR FILTRATION RATE > 60.0 (>60); GLUCOSE, FASTING 183 MG/DL (70-100); MAGNESIUM LEVEL 1.8 MG/DL (1.8-2.4); POTASSIUM SERUM 3.7 MEQ/L (3.5-5.1); SODIUM LEVEL 138 MEQ/L (136-145)
[2021-04-25 10:11] LABS: HEMOGLOBIN 13.2 g/dl (12.0-15.5); PLATELET COUNT, AUTOMATED 258 10^3/uL (150-450)
[2021-04-25 11:14] VITALS: BP 128/80
--- NOTE | 2021-04-25 12:03 | DS.PDOC ---
Discharge Summary General Date of Admission Apr 23, 2021 at 20:30 Date of Discharge Apr 24, 2021 Attending Physician: KALYAN KELLEY DO Discharge Summary PROCEDURES PERFORMED DURING STAY: None. ADMITTING DIAGNOSES: 1. Sepsis secondary to pyelonephritis 2. Erythrocytosis likely secondary to hemoconcentration 3. Diabetes type 1 4. Anxiety depression 5. Chronic back pain 6. Migraines 7. Tobacco and THC abuse 8. Chronic hip and lower back pain 9. Class I obesity DISCHARGE DIAGNOSES: 1. Sepsis secondary to pyelonephritis 2. Leukocytosis likely secondary to hemoconcentration 3. Diabetes type 1 4. Anxiety depression 5. Chronic back pain 6. Migraines 7. Tobacco and THC abuse 8. Chronic hip and lower back pain 9. Class I obesity COMPLICATIONS/CHIEF COMPLAINT: Sepsis. HISTORY OF PRESENT ILLNESS: Ms. Jessee Hooks is a 41-year-old female who presented to the ED 04/23/2021 with severe back pain that developed 04/22/2021. On 04/21/2021 patient started developing nausea and vomiting. When she woke up on 04/22/2021 the symptoms continued and right-sided back pain developed in the area of the kidney. Patient described it feeling like a pinched nerve which eventually increased in pain and radiated over her back (centered around right side). States she was unable to lie still on her back and the only thing that helped was a hot shower. She was unable to swallow medications during that time due to nausea vomiting. She also reported decreased oral intake of food and fluids over the course of her symptoms. She has a history of pyelonephritis of the right kidney and visits to the ER for UTI. Urine culture November from the pyelonephritis is stay was E. coli ESBL. HOSPITAL COURSE: 04/23/2021: Patient came to the ER after experiencing severe back pain that developed 04/22/2021 along with nausea and vomiting since 04/21/2021. In the ER she was given IV fluids, Toradol, Ativan, antinausea medications, and started on ceftriaxone. 04/24/2021: Patient was admitted for inpatient evaluation and management. She was given morphine for pain control and antibiotics were switched to IV Zosyn. She was also repleted with magnesium. Urine culture was positive for E. coli ESBL. Denied pain with urination hematuria 04/25/2021: Patient was examined at bedside. States that the back pain was little better than yesterday but still bad when the pain medication wears off. She was switched from morphine to Toradol IV for better pain control more similar to what patient takes on as an outpatient for chronic pain issues. Denies pain with urination and hematuria, and reported increased thirst and urination. She was also able to keep down her breakfast this morning. DISCHARGE MEDICATIONS: Please see below. ALLERGIES: Please see below. PHYSICAL EXAMINATION ON DISCHARGE: VITAL SIGNS: Please see below. GENERAL: 41-year-old female, sitting in couch by window in the room HEENT: Head normocephalic/atraumatic CARDIOVASCULAR EXAMINATION: Regular rate and rhythm, no murmurs, rubs, or gallops RESPIRATORY EXAMINATION: Clear to auscultation bilaterally, no wheezes, no crackles, rhonchi ABDOMINAL EXAMINATION: Normoactive bowel sounds, nontender to palpation, no rebound tenderness or guarding NEUROLOGICAL EXAMINATION: No focal deficits appreciated LABORATORY DATA: Please see below. IMAGING: CT abdomen pelvis with IV contrast 04/23/2021: No evidence of acute intra- abdominal or pelvic pathology PROGNOSIS: Good ACTIVITY: As tolerated. DIET: As tolerated DISPOSITION: Home DISCHARGE INSTRUCTIONS AND ITEMS TO FOLLOW-UP ON OUTPATIENT 1. Follow-up with PCP within the next week 2. Antibiotics (Bactrim, trimethoprim/sulfamethoxazole): Take 1 dose of Bactrim 160/800 mg tonight/this afternoon; from April 26 through May 04 take 1 Bactrim twice a day until medication completed. 3. Continue home medications as directed 4. Presenting symptoms return and/or worsen please return to ED for evaluation and management DISCHARGE CONDITION: Stable. TIME SPENT ON DISCHARGE: 35 minutes. Vital Signs/I&Os Vital Signs Date Time Temp Pulse Resp B/P (MAP) Pulse Ox O2 Delivery O2 Flow Rate FiO2 04/25/21 11:25 14 04/25/21 11:14 98.6 64 128/80 (96) 99 Room Air I&O- Last 24 Hours up to 6 AM 04/25/21 06:00 Intake Total 2465 ml Balance 2465 ml Laboratory Data Labs 24H Laboratory Tests 2 04/24/21 12:21: Bedside Glucose (Misc Panel) 122H 04/24/21 17:23: Bedside Glucose (Misc Panel) 81 04/24/21 23:46: Bedside Glucose (Misc Panel) 146H 04/25/21 06:10: Bedside Glucose (Misc Panel) 177H 04/25/21 08:41: Immature Granulocyte % (Auto) 0.3, Neutrophils (%) (Auto) 71.7H, Lymphocytes (%) (Auto) 18.7L, Monocytes (%) (Auto) 7.2, Eosinophils (%) (Auto) 1.4, Basophils (%) (Auto) 0.7, Neutrophils # (Auto) 6.6, Lymphocytes # (Auto) 1.7, Monocytes # (Auto) 0.7, Eosinophils # (Auto) 0.1, Basophils # (Auto) 0.1, Nucleated Red Blood Cells % (auto) 0.0, Anion Gap 4L, Glomerular Filtration Rate > 60.0, Calcium Level 8.1L, Magnesium Level 1.8 04/25/21 11:31: Bedside Glucose (Misc Panel) 218H CBC/BMP Laboratory Tests 04/25/21 08:41 FSBS Laboratory Tests Test 04/24/21 12:21 04/24/21 17:23 04/24/21 23:46 04/25/21 06:10 Range/Units Bedside Glucose (Misc Panel) 122 81 146 177 70-105 MG/DL Test 04/25/21 11:31 Range/Units Bedside Glucose (Misc Panel) 218 70-105 MG/DL Microbiology Microbiology 04/23/21 Blood Culture - Preliminary, Resulted No growth after 24 hours . All specim... 04/23/21 Blood Culture - Preliminary, Resulted No growth after 24 hours . All specim... 04/23/21 Urine Culture - Preliminary, Resulted E.coli Esbl Discharge Medications Scheduled Insulin Glargine,Hum.rec.anlog (Basaglar Kwikpen U-100) 100 Unit/1 Ml Insuln.pen, 28 UNITS IM DAILY, (Reported) Paroxetine HCl (Paroxetine) 10 Mg Tablet, 10 MG PO DAILY, (Reported) Sulfamethoxazole/Trimethoprim (Sulfamethoxazole-Tmp Ds Tablet) 1 Each Tablet, 1 TAB PO BID On 04/25/2021 take 1 tablet in the afternoon/night; from 04/26/2021 through 05/04/2021 take 1 tablet twice a day until finished Scheduled PRN Albuterol Sulfate (Proair Hfa) 8.5 Gm Hfa.aer.ad, 2 PUFF INH Q6H PRN for SOB/WHEEZING, (Reported) Alprazolam (Alprazolam) 1 Mg Tab, 1 MG PO BID PRN for ANXIETY, (Reported) Hydrocodone/Acetaminophen (Hydrocodone-Acetamin 7.5-325) 1 Each Tablet, 1 TAB PO QID PRN for PAIN, (Reported) Ondansetron (Ondansetron Odt) 4 Mg Tab.rapdis, 4 MG PO Q6-8HP PRN for nausea/vomiting, (Reported) Sumatriptan Succinate (Sumatriptan Succinate) 100 Mg Tablet, 100 MG PO DAILY PRN for MIGRAINE, (Reported) may repeat in 2 hours; do not exceed 200 mg in 24 hours Allergies Coded Allergies: No Known Allergies (Unverified , 09/25/14) GME ATTESTATION GME ATTESTATION My faculty preceptor for this patient encounter was physically present during the encounter and was fully available. All aspects of the patient interview, examination, medical decision making process, and medical care plan development were reviewed and approved by the faculty preceptor. The faculty preceptor is aware and concurs with the plan as stated in the body of this note and will attest to such by his/her cosignature. ATTENDING NOTE I, Kalyan Kelley DO, have independently examined this patient and performed my own physical exam, as well as reviewed the documentation and edited where necessary. I have discussed in detail with the resident the findings and plan of treatment as documented by the resident and edited their note. I agree with their findings and treatment plan and have edited their documentation. I will continue to follow the patient during this hospital stay. Rob Mccabe DO Apr 25, 2021 12:03 KALYAN KELLEY DO Apr 25, 2021 17:05
[2021-04-25] MEDS ORDERED: BACTDSTA PO (12:07)
[2021-04-25 14:00] VITALS: BP 128/84
== END 2021-04-25 19:06 | disposition home or self-care (01) | DRG 720 ==
LOC: M ED 15:40 → M ED INP 20:30 → ENRESERV 04-24 14:29 → M MSPAV 04-24 17:00
PROVIDERS: ADMIT Internal Medicine; ATTEND Family Medicine
DX: A41.9 Sepsis, unspecified organism (principal); E10.10 Type 1 diabetes mellitus with ketoacidosis without coma; N12 Tubulo-interstitial nephritis, not specified as acute or chronic; F41.9 Anxiety disorder, unspecified; F32.9 Major depressive disorder, single episode, unspecified; E66.9 Obesity, unspecified; G43.909 Migraine, unspecified, not intractable, without status migrainosus; M54.59 Other low back pain; F17.200 Nicotine dependence, unspecified, uncomplicated; Z79.4 Long term (current) use of insulin; Z79.899 Other long term (current) drug therapy; F11.90 Opioid use, unspecified, uncomplicated

== ENCOUNTER → 2021-05-15 | Outpatient (REF) | payer OTHER ==
[~2021-05-15] MED LIST changes: +BACTDSTA PO; +BASA100I IM; +PARO10TA3 PO; +PROAAER10 INH
== END ==
LOC: M SFHCPLAZ 12:11
PROVIDERS: ATTEND Family Medicine
DX: Z13.9 Encounter for screening, unspecified (principal); E11.9 Type 2 diabetes mellitus without complications

== ENCOUNTER → 2021-06-23 | Outpatient (REF) | payer OTHER | LOC: M SFHCPLAZ 09:00 | PROVIDERS: ATTEND Family Medicine | DX: Z53.9 Procedure and treatment not carried out, unspecified reason (principal); E11.9 Type 2 diabetes mellitus without complications ==

== ENCOUNTER 2021-07-04 10:11 | Inpatient (IN) | payer OTHER ==
[~2021-07-04] VITALS: Ht 154.9 cm; Wt 77.6 kg
[~2021-07-04 10:11] MED LIST changes: -BASA100I IM; +BASA100I SC
[2021-07-04] MEDS ORDERED: NS 1,000 ML IV ONE (10:40)
[2021-07-04] MEDS ORDERED: LIDOCAINE 2% 5ML JELLY UROJET TOP ONE ×2 (10:40→12:15)
[2021-07-04] MEDS ORDERED: ONDANSETRON 4MG/2ML VIAL IV ONE (10:40)
[2021-07-04 11:33] LABS: VENOUS BASE EXCESS -4.8 (-2.0-2.0); VENOUS O2 SATURATION 92.6 % (60.0-80.0); VENOUS PARTIAL PRESSURE O2 58.6 mmHg (30.0-50.0); VENOUS PH 7.451 UNITS (7.330-7.430); VENOUS STANDARD HCO3 20.5 MEQ/L; VENOUS TOTAL CO2 17.8 MEQ/L (24.0-28.0)
[2021-07-04 11:37] LABS: BASO # 0.2 10^3/uL (0.0-0.2); BASO % 0.7 % (0.0-1.0); EOS # 0.1 10^3/uL (0.0-0.5); EOS % 0.3 % (0.0-3.0); HEMATOCRIT 46.2 % (36.0-47.0); HEMOGLOBIN 15.5 g/dl (12.0-15.5); LYMPH % 12.4 % (24.0-44.0); MEAN CORPUSCULAR HEMOGLOBIN 29.5 pg (27.0-33.0); MEAN CORPUSCULAR HGB CONC 33.5 g/dl (32.0-36.5); MEAN CORPUSCULAR VOLUME 87.8 fl (80.0-96.0); MONO # 0.7 10^3/uL (0.0-0.8); MONO % 3.1 % (2.0-8.0); NEUTROPHILS # 19.7 10^3/uL (1.5-8.5); NEUTROPHILS % 82.9 % (36.0-66.0); PLATELET COUNT, AUTOMATED 404 10^3/uL (150-450); RED BLOOD COUNT 5.26 10^6/uL (4.00-5.40); WHITE BLOOD COUNT 23.8 10^3/uL (4.0-10.0)
[2021-07-04 11:42] LABS: OSMOLALITY SERUM 320 MOSM/KG (275-295)
[2021-07-04] MEDS ORDERED: ISOVUE-370 76% 100ML VIAL As Ordered ONE (11:48)
[2021-07-04] MEDS ORDERED: NS 1,320 ML in IV 1 EA IV ONE (12:15)
[2021-07-04] MEDS ORDERED: cefTRIAXone SOD 2 GM in D5W MINI-BAG PLUS 50 ML IV ONE (12:15)
[2021-07-04 12:16] LABS: BLOOD UREA NITROGEN 11 MG/DL (7-18); CALCIUM LEVEL 9.1 MG/DL (8.5-10.1); CARBON DIOXIDE LEVEL 17 MEQ/L (21-32); CHLORIDE LEVEL 108 MEQ/L (98-107); CREATININE FOR GFR 0.82 MG/DL (0.55-1.30); GLOMERULAR FILTRATION RATE > 60.0 (>60); GLUCOSE, FASTING 303 MG/DL (70-100); POTASSIUM SERUM 3.9 MEQ/L (3.5-5.1); SODIUM LEVEL 141 MEQ/L (136-145)
[2021-07-04 12:26] LABS: ACETAMINOPHEN LEVEL < 2.0 UG/ML (10.0-30.0); ACETONE/KETONE 2.95 MG/DL (<2.81); ALBUMIN 4.5 GM/DL (3.2-5.2); ALT/SGPT 26 U/L (12-78); BILIRUBIN,DIRECT 0.1 MG/DL (0.0-0.2); BILIRUBIN,TOTAL 0.3 MG/DL (0.2-1.0); ETHYL ALCOHOL (ETHANOL) 0.075 % (0.000-0.010); LIPASE 82 U/L (73-393); MAGNESIUM LEVEL 1.9 MG/DL (1.8-2.4); PHOSPHORUS LEVEL 1.9 MG/DL (2.5-4.9); SALICYLATE LEVEL 3.4 MG/DL (5.0-30.0); TOTAL PROTEIN 8.3 GM/DL (6.4-8.2)
[2021-07-04 12:27] LABS: RSV AMPLIFICATION NEGATIVE (NEGATIVE)
[2021-07-04] MEDS ORDERED: LORazepam 2 MG/ML VIAL IV STA (12:32)
[2021-07-04 12:48] LABS: HEMOGLOBIN A1c 7.3 %
[2021-07-04] MEDS ORDERED: PAXI40TA10 PO (12:51)
[2021-07-04] MEDS ORDERED: BACTDSTA PO (12:51)
[2021-07-04] MEDS ORDERED: ATOR1TAB21 PO (12:54)
[2021-07-04] MEDS ORDERED: LISI5TAB11 PO (12:54)
[2021-07-04] MEDS ORDERED: HOME MED LIST COMPLETE! XX SCH (12:55)
[2021-07-04] MEDS ORDERED: ONDANSETRON 4 MG ORAL DISINTEGRATING TAB PO PRN (13:20)
[2021-07-04] MEDS ORDERED: ALBUTEROL 90 MCG/ACT 8GM HFA INHALER INH PRN (13:20)
[2021-07-04 13:29] LABS: AMPHETAMINES LEVEL URINE NEGATIVE (NEGATIVE); BARBITURATES URINE NEGATIVE (NEGATIVE); BENZODIAZEPINES URINE POSITIVE (NEGATIVE); CANNABINOIDS URINE POSITIVE (NEGATIVE); COCAINE METABOLITE URINE POSITIVE (NEGATIVE); METHADONE URINE NEGATIVE (NEGATIVE); OPIATES URINE POSITIVE (NEGATIVE); PHENCYCLIDINE URINE NEGATIVE (NEGATIVE)
[2021-07-04] MEDS ORDERED: GLUCOSE 4GM CHEW TABLET PO PRN (13:50)
[2021-07-04] MEDS ORDERED: DEXTROSE 50% 50 ML SYRINGE IV PRN (13:50)
[2021-07-04] MEDS ORDERED: GLUCAGON INJ 1MG VIAL SC PRN (13:50)
[2021-07-04] MEDS: ATORVASTATIN 20 MG TAB PO SCH (14:08)
[2021-07-04] MEDS: lisinopriL 5 MG TAB PO SCH (14:08)
[2021-07-04] MEDS: PARoxetine 20MG TABLET PO SCH (14:08)
[2021-07-04] MEDS ORDERED: LEVEMIR (INSULIN DETEMIR) 1 UNITS/0.01ML SC ONE (14:30)
[2021-07-04] MEDS: FOLIC ACID 1 MG TAB PO SCH (14:38)
[2021-07-04] MEDS: THIAMINE 100 MG TAB PO SCH (14:38)
[2021-07-04] MEDS: ALPRAZolam 0.5 MG TAB PO PRN (14:38)
[2021-07-04] MEDS: ANEXSIA, NORCO 7.5MG/325MG TABLET(HYDROCODONE/APAP) PO PRN ×2 (14:39→21:57)
[2021-07-04 15:16] LABS: BASO # 0.1 10^3/uL (0.0-0.2); BASO % 0.4 % (0.0-1.0); HEMATOCRIT 42.3 % (36.0-47.0); HEMOGLOBIN 14.6 g/dl (12.0-15.5); LYMPH % 7.5 % (24.0-44.0); MEAN CORPUSCULAR HEMOGLOBIN 29.8 pg (27.0-33.0); MEAN CORPUSCULAR HGB CONC 34.5 g/dl (32.0-36.5); MEAN CORPUSCULAR VOLUME 86.3 fl (80.0-96.0); MONO # 0.8 10^3/uL (0.0-0.8); MONO % 2.8 % (2.0-8.0); NEUTROPHILS # 24.1 10^3/uL (1.5-8.5); NEUTROPHILS % 88.9 % (36.0-66.0); PLATELET COUNT, AUTOMATED 377 10^3/uL (150-450); WHITE BLOOD COUNT 27.2 10^3/uL (4.0-10.0)
[2021-07-04 15:40] LABS: BLOOD UREA NITROGEN 10 MG/DL (7-18); CALCIUM LEVEL 8.8 MG/DL (8.5-10.1); CARBON DIOXIDE LEVEL 20 MEQ/L (21-32); CHLORIDE LEVEL 109 MEQ/L (98-107); CREATININE FOR GFR 0.76 MG/DL (0.55-1.30); GLOMERULAR FILTRATION RATE > 60.0 (>60); GLUCOSE, FASTING 276 MG/DL (70-100); PHOSPHORUS LEVEL 1.9 MG/DL (2.5-4.9); POTASSIUM SERUM 3.9 MEQ/L (3.5-5.1); SODIUM LEVEL 142 MEQ/L (136-145)
[2021-07-04] MEDS ORDERED: K-PHOS ORIGINAL (POT.ACID PHOSPHATE) 500MG TAB PO ONE (16:00)
[2021-07-04] MEDS: NS 1,000 ML IV SCH ×2 (16:19→23:00)
[2021-07-04 16:25] VITALS: BP 160/100
[2021-07-04] MEDS ORDERED: VANCOMYCIN HCL 0 MG in IV FLUID PLACE HOLDER 1 EA IV SCH (17:05)
[2021-07-04 17:24] VITALS: O2SAT 93
[2021-07-04] MEDS ORDERED: HumaLOG INSULIN (NovoLOG) PER UNIT SC ONE (17:30)
[2021-07-04] MEDS ORDERED: MAGNESIUM OXIDE 400MG TAB (MAG-OX) PO ONE (18:00)
[2021-07-04] MEDS: HumaLOG INSULIN (NovoLOG) PER UNIT SC SCH (18:31)
[2021-07-04] MEDS: PIPERACILLIN/TAZOBACTAM SOD 3.375 GM in D5W MINI-BAG PLUS 50 ML IV SCH (18:31)
[2021-07-04 20:45] VITALS: O2SAT 96
[2021-07-04] MEDS: VANCOMYCIN HCL 1,000 MG, VIAL MATE ADAPTER 1 EACH in NS 250 ML IV SCH (20:45)
[2021-07-04] MEDS ORDERED: SODIUM PHOSPHATE INJ 30 MMOL in D5W 500 ML IV ONE (21:00)
[2021-07-04] MEDS ORDERED: ENOXAPARIN 40MG/0.4ML SYRINGE (J1650 PER 10MG) SC SCH (21:00)
[2021-07-04] MEDS ORDERED: HumaLOG INSULIN (NovoLOG) PER UNIT SC SCH (21:00)
[2021-07-04 22:00] VITALS: BP 104/61
[2021-07-05] MEDS: PIPERACILLIN/TAZOBACTAM SOD 3.375 GM in D5W MINI-BAG PLUS 50 ML IV SCH ×3 (02:55→15:42)
[2021-07-05] MEDS: VANCOMYCIN HCL 1,000 MG, VIAL MATE ADAPTER 1 EACH in NS 250 ML IV SCH ×2 (04:10→13:59)
[2021-07-05 06:00] VITALS: BP 145/89
[2021-07-05 06:41] LABS: BASO # 0.1 10^3/uL (0.0-0.2); BASO % 0.4 % (0.0-1.0); EOS # 0.2 10^3/uL (0.0-0.5); EOS % 1.1 % (0.0-3.0); HEMATOCRIT 39.7 % (36.0-47.0); HEMOGLOBIN 13.3 g/dl (12.0-15.5); LYMPH # 4.8 10^3/uL (1.5-5.0); LYMPH % 26.2 % (24.0-44.0); MEAN CORPUSCULAR HEMOGLOBIN 29.4 pg (27.0-33.0); MEAN CORPUSCULAR HGB CONC 33.5 g/dl (32.0-36.5); MEAN CORPUSCULAR VOLUME 87.8 fl (80.0-96.0); MONO # 1.2 10^3/uL (0.0-0.8); MONO % 6.7 % (2.0-8.0); NEUTROPHILS # 11.9 10^3/uL (1.5-8.5); NEUTROPHILS % 65.2 % (36.0-66.0); PLATELET COUNT, AUTOMATED 356 10^3/uL (150-450); RED BLOOD COUNT 4.52 10^6/uL (4.00-5.40); WHITE BLOOD COUNT 18.3 10^3/uL (4.0-10.0)
[2021-07-05] MEDS: NS 1,000 ML IV SCH (07:06)
[2021-07-05 07:20] LABS: PHOSPHORUS LEVEL 4.1 MG/DL (2.5-4.9)
[2021-07-05] MEDS: HumaLOG INSULIN (NovoLOG) PER UNIT SC SCH ×2 (07:30→12:38)
[2021-07-05 07:39] LABS: ALBUMIN 3.7 GM/DL (3.2-5.2); ALT/SGPT 22 U/L (12-78); BILIRUBIN,TOTAL 0.9 MG/DL (0.2-1.0); BLOOD UREA NITROGEN 11 MG/DL (7-18); CARBON DIOXIDE LEVEL 27 MEQ/L (21-32); CHLORIDE LEVEL 106 MEQ/L (98-107); CREATININE FOR GFR 0.68 MG/DL (0.55-1.30); GLOMERULAR FILTRATION RATE > 60.0 (>60); GLUCOSE, FASTING 106 MG/DL (70-100); POTASSIUM SERUM 2.8 MEQ/L (3.5-5.1); SODIUM LEVEL 140 MEQ/L (136-145); TOTAL PROTEIN 6.8 GM/DL (6.4-8.2)
[2021-07-05] MEDS ORDERED: POTASSIUM CHLORIDE 10MEQ SR TABLET PO ONE (09:00)
[2021-07-05] MEDS: PARoxetine 20MG TABLET PO SCH (09:18)
[2021-07-05] MEDS: KCL 10MEQ/100ML SWI (KRUN) 10 MEQ in IV 1 EA IV SCH ×4 (09:18→12:37)
[2021-07-05] MEDS: FOLIC ACID 1 MG TAB PO SCH (09:18)
[2021-07-05] MEDS: ANEXSIA, NORCO 7.5MG/325MG TABLET(HYDROCODONE/APAP) PO PRN ×2 (09:19→16:02)
[2021-07-05] MEDS: ALPRAZolam 0.5 MG TAB PO PRN (09:19)
[2021-07-05] MEDS: ATORVASTATIN 20 MG TAB PO SCH (09:19)
[2021-07-05] MEDS: THIAMINE 100 MG TAB PO SCH (09:19)
[2021-07-05 09:21] VITALS: BP 130/78
[2021-07-05] MEDS: lisinopriL 5 MG TAB PO SCH (09:21)
[2021-07-05 12:29] VITALS: O2SAT 92
[2021-07-05 14:00] VITALS: BP 131/78
[2021-07-05 14:19] LABS: BASO # 0.1 10^3/uL (0.0-0.2); BASO % 0.5 % (0.0-1.0); EOS # 0.2 10^3/uL (0.0-0.5); EOS % 1.2 % (0.0-3.0); HEMOGLOBIN 12.9 g/dl (12.0-15.5); LYMPH # 4.8 10^3/uL (1.5-5.0); MEAN CORPUSCULAR HEMOGLOBIN 29.8 pg (27.0-33.0); MEAN CORPUSCULAR HGB CONC 33.9 g/dl (32.0-36.5); MEAN CORPUSCULAR VOLUME 87.8 fl (80.0-96.0); MONO # 1.2 10^3/uL (0.0-0.8); MONO % 6.3 % (2.0-8.0); NEUTROPHILS # 12.7 10^3/uL (1.5-8.5); NEUTROPHILS % 66.6 % (36.0-66.0); PLATELET COUNT, AUTOMATED 314 10^3/uL (150-450); RED BLOOD COUNT 4.33 10^6/uL (4.00-5.40); WHITE BLOOD COUNT 19.1 10^3/uL (4.0-10.0)
[2021-07-05 14:44] LABS: BLOOD UREA NITROGEN 13 MG/DL (7-18); CALCIUM LEVEL 8.5 MG/DL (8.5-10.1); CARBON DIOXIDE LEVEL 25 MEQ/L (21-32); CHLORIDE LEVEL 109 MEQ/L (98-107); CREATININE FOR GFR 0.92 MG/DL (0.55-1.30); GLOMERULAR FILTRATION RATE > 60.0 (>60); GLUCOSE, FASTING 175 MG/DL (70-100); POTASSIUM SERUM 3.9 MEQ/L (3.5-5.1); SODIUM LEVEL 141 MEQ/L (136-145)
[2021-07-05] MEDS ORDERED: LEVEMIR (INSULIN DETEMIR) 1 UNITS/0.01ML SC SCH (21:00)
== END 2021-07-05 17:45 | disposition left against medical advice (07) | DRG 52 ==
LOC: EDBD 10:11 → M ED 10:11 → M ED INP 13:16 → ENRESERV 15:11 → M MSPAV 15:50
PROVIDERS: ADMIT Internal Medicine; ATTEND Internal Medicine
DX: G92.8 Other toxic encephalopathy (principal); E11.65 Type 2 diabetes mellitus with hyperglycemia; F41.9 Anxiety disorder, unspecified; F32.A Depression, unspecified; G43.909 Migraine, unspecified, not intractable, without status migrainosus; M54.50 Low back pain, unspecified; Z90.49 Acquired absence of other specified parts of digestive tract; F17.210 Nicotine dependence, cigarettes, uncomplicated; F12.10 Cannabis abuse, uncomplicated; E87.2 Acidosis; I10 Essential (primary) hypertension; K21.9 Gastro-esophageal reflux disease without esophagitis; Z79.4 Long term (current) use of insulin; Z79.899 Other long term (current) drug therapy; Z91.19 Patient's noncompliance with other medical treatment and regimen

== ENCOUNTER → 2021-07-07 | Outpatient (REF) | payer OTHER ==
[~2021-07-07] MED LIST changes: +ATOR1TAB21 PO; +LISI5TAB11 PO; +PAXI40TA10 PO
== END ==
LOC: M SFHCPLAZ 08:52
PROVIDERS: ATTEND Family Medicine
DX: D72.829 Elevated white blood cell count, unspecified (principal); E11.9 Type 2 diabetes mellitus without complications; Z11.3 Encounter for screening for infections with a predominantly sexual mode of transmission

== ENCOUNTER → 2021-07-08 | Outpatient (CLI) | payer OTHER ==
[~2021-07-08] MED LIST changes: +LISI-898 PO; -LISI5TAB11 PO
--- NOTE | 2021-07-08 09:34 | REP ---
INDICATION: ELEVATED WHITE BLOOD CELL COUNT, UNSPECIFIED. COMPARISON: None. TECHNIQUE: Single AP view of the pelvis FINDINGS: Osseous structures are intact and normal. Joint spaces are symmetric. No evidence for acute or healed injury. Surrounding soft tissues are unremarkable. IMPRESSION: Normal pelvic radiograph. <Electronically signed by Marques Woodson > 07/08/21 [id number]
--- NOTE | 2021-07-08 09:35 | REP ---
INDICATION: ELEVATED WHITE BLOOD CELL COUNT, UNSPECIFIED COMPARISON: None. TECHNIQUE: AP, lateral, bilateral oblique and sunrise views. FINDINGS: The osseous structures and joint spaces are intact and age-appropriate. There is no evidence for acute fracture or dislocation. Incidental small nonossifying fibroma noted in the distal femoral metadiaphysis. No joint effusion is appreciated. Surrounding soft tissues are unremarkable. No subcutaneous emphysema or radiodense foreign body. IMPRESSION: Essentially age-appropriate examination. As above. <Electronically signed by Marques Woodson > 07/08/21 [id number]
--- NOTE | 2021-07-08 09:36 | REP ---
INDICATION: ELEVATED WHITE BLOOD CELL COUNT, UNSPECIFIED COMPARISON: None. TECHNIQUE: AP, lateral, coned-down views of the lumbar spine. FINDINGS: Three views of the lumbosacral spine demonstrate satisfactory alignment and lordosis without acute fracture / compression injury or subluxation. No significant degenerative changes are appreciated. IMPRESSION: 1. No acute fracture / compression injury or subluxation. 2. No degenerative changes. <Electronically signed by Marques Woodson > 07/08/21 0936
[2021-07-08 11:23] LABS: BASO # 0.1 10^3/uL (0.0-0.2); BASO % 0.5 % (0.0-1.0); EOS # 0.9 10^3/uL (0.0-0.5); EOS % 5.1 % (0.0-3.0); HEMATOCRIT 42.1 % (36.0-47.0); LYMPH # 3.7 10^3/uL (1.5-5.0); LYMPH % 21.7 % (24.0-44.0); MEAN CORPUSCULAR HEMOGLOBIN 29.7 pg (27.0-33.0); MEAN CORPUSCULAR HGB CONC 33.3 g/dl (32.0-36.5); MEAN CORPUSCULAR VOLUME 89.2 fl (80.0-96.0); MONO # 0.7 10^3/uL (0.0-0.8); MONO % 4.2 % (2.0-8.0); NEUTROPHILS # 11.8 10^3/uL (1.5-8.5); NEUTROPHILS % 68.1 % (36.0-66.0); PLATELET COUNT, AUTOMATED 310 10^3/uL (150-450); RED BLOOD COUNT 4.72 10^6/uL (4.00-5.40); WHITE BLOOD COUNT 17.3 10^3/uL (4.0-10.0)
[2021-07-08 11:48] LABS: MALB URINE SIEMENS 8.7 MG/L; MAU/CREAT RATIO 6.5 MCG/MG (0.0-30.0)
[2021-07-08 13:21] LABS: GC DNA AMPLIFICATION NEGATIVE (NEGATIVE)
[2021-07-08 14:54] LABS: ALBUMIN 3.9 GM/DL (3.2-5.2); ALT/SGPT 21 U/L (12-78); BILIRUBIN,DIRECT < 0.1 MG/DL (0.0-0.2); BILIRUBIN,TOTAL 0.2 MG/DL (0.2-1.0); CHOLESTEROL LEVEL 106 MG/DL (<200); CHOLESTEROL RISK RATIO 3.212 (<5); GLUCOSE,RANDOM 224 MG/DL (LESS THAN 200); HDL CHOLESTEROL 33 MG/DL (>40); LDL CHOLESTEROL 56 MG/DL (<100); NON-HDL-C 73 MG/DL; TOTAL PROTEIN 6.8 GM/DL (6.4-8.2); TRIGLYCERIDES LEVEL 87 MG/DL (<150)
[2021-07-08 15:06] LABS: HEPATITIS B SURFACE ANTIBODY NEGATIVE (POSITIVE)
[2021-07-08 15:45] LABS: HEPATITIS B CORE ANTIBODY IGM NEGATIVE (NEGATIVE); HEPATITIS C VIRUS ABY INDEX 0.1 INDEX (<0.8)
[2021-07-08 15:46] LABS: HIV 1&2 SCREEN CENTAUR NEGATIVE (NEGATIVE)
== END ==
LOC: M PLAIMG 08:15
PROVIDERS: ATTEND Family Medicine
DX: D72.829 Elevated white blood cell count, unspecified (principal); Z11.3 Encounter for screening for infections with a predominantly sexual mode of transmission; E11.9 Type 2 diabetes mellitus without complications; M54.50 Low back pain, unspecified; M25.562 Pain in left knee

== ENCOUNTER → 2021-09-11 | Outpatient (REF) | payer OTHER ==
[~2021-09-11] MED LIST changes: -LISI-898 PO; +LISI5TAB11 PO
== END ==
LOC: M SFHCPLAZ 11:33
PROVIDERS: ATTEND Family Medicine
DX: Z53.9 Procedure and treatment not carried out, unspecified reason (principal)

== ENCOUNTER → 2022-03-10 | Outpatient (REF) | payer OTHER ==
[~2022-03-10] MED LIST changes: -TRIA37.53 PO; +TRIA37.577 PO
[2022-03-10 18:01] LABS: APPEARANCE, URINE MANUAL CLEAR (CLEAR); COLOR, URINE MANUAL YELLOW (YELLOW)
[2022-03-10 18:02] LABS: BILIRUBIN, URINE MANUAL NEGATIVE (NEGATIVE); BLOOD URINE MANUAL NEGATIVE (NEGATIVE); GLUCOSE, URINE (UA) MANUAL 4+(1000 MG/DL) mg/dL (NEGATIVE); KETONE, URINE MANUAL NEGATIVE (NEGATIVE); LEUKOCYTE ESTERASE, URINE MAN NEGATIVE (NEGATIVE); NITRITE, URINE MANUAL NEGATIVE (NEGATIVE); PROTEIN, URINE MANUAL NEGATIVE (NEGATIVE); SPECIFIC GRAVITY,URINE MANUAL 1.025 (1.002-1.035); UROBILINOGEN, URINE MANUAL NORMAL (NORMAL)
== END ==
LOC: M SMT 17:17
PROVIDERS: ATTEND Nurse Practitioner Women's Health
DX: N39.0 Urinary tract infection, site not specified (principal); N12 Tubulo-interstitial nephritis, not specified as acute or chronic

== ENCOUNTER 2022-03-20 22:45 | Emergency (ER) | payer OTHER ==
[~2022-03-20] VITALS: Ht 154.9 cm; Wt 81.8 kg
[2022-03-21] MEDS ORDERED: HumuLIN R (REGULAR) INSULIN (NovoLIN R) **100U/ML** PER UNIT IV ONE (00:20)
[2022-03-21] MEDS ORDERED: NS 1,000 ML IV ONE (00:20)
[2022-03-21 00:40] LABS: VENOUS BASE EXCESS -4.2 (-2.0-2.0); VENOUS HCO3 18.3 MEQ/L (23.0-27.0); VENOUS O2 SATURATION 99.2 % (60.0-80.0); VENOUS PARTIAL PRESSURE O2 141.3 mmHg (30.0-50.0); VENOUS PH 7.434 UNITS (7.330-7.430); VENOUS STANDARD HCO3 21.1 MEQ/L; VENOUS TOTAL CO2 19.2 MEQ/L (24.0-28.0)
[2022-03-21 00:47] LABS: BASO # 0.1 10^3/uL (0.0-0.2); BASO % 0.2 % (0.0-1.0); HEMATOCRIT 45.8 % (36.0-47.0); LYMPH % 9.2 % (24.0-44.0); MEAN CORPUSCULAR HEMOGLOBIN 29.6 pg (27.0-33.0); MEAN CORPUSCULAR HGB CONC 34.9 g/dl (32.0-36.5); MEAN CORPUSCULAR VOLUME 84.7 fl (80.0-96.0); MONO # 0.8 10^3/uL (0.0-0.8); MONO % 3.7 % (2.0-8.0); NEUTROPHILS # 18.4 10^3/uL (1.5-8.5); NEUTROPHILS % 86.3 % (36.0-66.0); PLATELET COUNT, AUTOMATED 360 10^3/uL (150-450); RED BLOOD COUNT 5.41 10^6/uL (4.00-5.40); WHITE BLOOD COUNT 21.4 10^3/uL (4.0-10.0)
[2022-03-21 03:05] LABS: ACETONE/KETONE 26.51 MG/DL (<2.81); ALBUMIN 4.6 GM/DL (3.2-5.2); ALT/SGPT 23 U/L (12-78); BILIRUBIN,TOTAL 0.8 MG/DL (0.2-1.0); BLOOD UREA NITROGEN 13 MG/DL (7-18); CALCIUM LEVEL 9.9 MG/DL (8.5-10.1); CARBON DIOXIDE LEVEL 22 MEQ/L (21-32); CHLORIDE LEVEL 104 MEQ/L (98-107); CREATININE FOR GFR 0.98 MG/DL (0.55-1.30); GLOMERULAR FILTRATION RATE > 60.0 (>58); GLUCOSE, FASTING 251 MG/DL (70-100); LIPASE 81 U/L (73-393); SODIUM LEVEL 138 MEQ/L (136-145); TOTAL PROTEIN 8.3 GM/DL (6.4-8.2)
[2022-03-21] MEDS ORDERED: ALPRAZolam 0.5 MG TAB PO ONE (04:10)
[2022-03-21 05:48] LABS: RSV AMPLIFICATION NEGATIVE (NEGATIVE)
[2022-03-21 08:07] LABS: AMPHETAMINES LEVEL URINE NEGATIVE (NEGATIVE); BARBITURATES URINE NEGATIVE (NEGATIVE); BENZODIAZEPINES URINE POSITIVE (NEGATIVE); CANNABINOIDS URINE POSITIVE (NEGATIVE); COCAINE METABOLITE URINE NEGATIVE (NEGATIVE); METHADONE URINE NEGATIVE (NEGATIVE); OPIATES URINE POSITIVE (NEGATIVE); PHENCYCLIDINE URINE NEGATIVE (NEGATIVE)
[2022-03-21] MEDS ORDERED: REGL5TAB2 PO (08:37)
[2022-03-21 08:45] VITALS: BP 149/78
== END 2022-03-21 09:04 | disposition home or self-care (01) ==
LOC: M ED 22:45
DX: K31.84 Gastroparesis (principal); E11.9 Type 2 diabetes mellitus without complications; I10 Essential (primary) hypertension; E78.5 Hyperlipidemia, unspecified; F32.A Depression, unspecified; Z79.4 Long term (current) use of insulin; Z79.811 Long term (current) use of aromatase inhibitors; Z79.51 Long term (current) use of inhaled steroids; Z79.899 Other long term (current) drug therapy
CPT/HCPCS: 71045; 74176; 76775; 80053; 80307; 81000; 81015; 82010; 82803; 83605; 83690; 85025; 87631; 93005; 96361; 96374; 99285; J1815

== ENCOUNTER → 2022-05-03 | Outpatient (REF) | payer OTHER ==
[~2022-05-03] MED LIST changes: +REGL5TAB2 PO
== END ==
LOC: M SFHCWAGY 09:51
PROVIDERS: ATTEND Obstetrics & Gynecology
DX: Z12.4 Encounter for screening for malignant neoplasm of cervix (principal)

== ENCOUNTER → 2022-05-11 | Outpatient (CLI) | payer OTHER | LOC: M WHC 08:37 | PROVIDERS: ATTEND Obstetrics & Gynecology | DX: N93.9 Abnormal uterine and vaginal bleeding, unspecified (principal) ==

== ENCOUNTER → 2022-05-20 | Outpatient (CLI) | payer OTHER | LOC: M WHC 16:12 | PROVIDERS: ATTEND Obstetrics & Gynecology | DX: Z12.31 Encounter for screening mammogram for malignant neoplasm of breast (principal) ==

== ENCOUNTER → 2022-05-31 | Outpatient (CLI) | payer OTHER ==
[~2022-05-31] MED LIST changes: -PAXI40TA10 PO; +PAXI40TA12 PO
== END ==
LOC: M WHC 14:42
PROVIDERS: ATTEND Obstetrics & Gynecology
DX: Z12.31 Encounter for screening mammogram for malignant neoplasm of breast (principal); R92.8 Other abnormal and inconclusive findings on diagnostic imaging of breast; N63.12 Unspecified lump in the right breast, upper inner quadrant; N63.23 Unspecified lump in the left breast, lower outer quadrant

== ENCOUNTER → 2022-07-22 | Outpatient (CLI) | payer OTHER | LOC: M LABSMTC 10:24 | PROVIDERS: ATTEND Anesthesiology | DX: Z01.812 Encounter for preprocedural laboratory examination (principal); Z11.52 Encounter for screening for COVID-19 ==

== ENCOUNTER → 2022-07-26 | Outpatient (CLI) | payer OTHER ==
[~2022-07-26] MED LIST changes: +ALBU8.5H INH
== END ==
LOC: M WHC 14:54
PROVIDERS: ATTEND Obstetrics & Gynecology
DX: Z12.31 Encounter for screening mammogram for malignant neoplasm of breast (principal); R92.8 Other abnormal and inconclusive findings on diagnostic imaging of breast; N63.21 Unspecified lump in the left breast, upper outer quadrant

== ENCOUNTER → 2022-08-03 | Outpatient (CLI) | payer OTHER ==
[~2022-08-03] MED LIST changes: +**SFHN** LIDOCAINE 1% MDV 20ML VIAL ONE; +**SFHN** SODIUM BICARBONATE 8.4% 10MEQ 10ML VIAL ONE
[2022-08-03 15:15] VITALS: BP 124/66
== END ==
LOC: M WHCPRO 13:32
PROVIDERS: ATTEND Obstetrics & Gynecology
DX: R92.8 Other abnormal and inconclusive findings on diagnostic imaging of breast (principal); N63.21 Unspecified lump in the left breast, upper outer quadrant

== ENCOUNTER → 2022-08-26 | Outpatient (CLI) | payer OTHER ==
[~2022-08-26] MED LIST changes: -**SFHN** LIDOCAINE 1% MDV 20ML VIAL ONE; -**SFHN** SODIUM BICARBONATE 8.4% 10MEQ 10ML VIAL ONE
== END ==
LOC: M LABSMTC 10:13
PROVIDERS: ATTEND Anesthesiology
DX: Z01.812 Encounter for preprocedural laboratory examination (principal); Z11.52 Encounter for screening for COVID-19

== ENCOUNTER 2022-08-31 06:23 | Day surgery (SDC) | payer OTHER ==
[~2022-08-31] VITALS: Ht 154.9 cm; Wt 72.1 kg
[~2022-08-31 06:23] MED LIST changes: +NS 1,000 ML IV ONE
[2022-08-31 08:27] VITALS: BP 127/80
[2022-08-31] MEDS ORDERED: LIDOCAINE 2% 100MG/5ML SDV (FOR ANES.) As Ordered ONE (08:48)
[2022-08-31] MEDS ORDERED: propofoL 200 MG/20 ML VIAL As Ordered ONE (08:48)
== END 2022-08-31 08:40 | disposition home or self-care (01) ==
LOC: M OPP 06:23
PROVIDERS: ATTEND Internal Medicine Gastroenterology
DX: K63.5 Polyp of colon (principal); K64.4 Residual hemorrhoidal skin tags; K64.8 Other hemorrhoids; R19.4 Change in bowel habit; K22.89 Other specified disease of esophagus; K29.70 Gastritis, unspecified, without bleeding; K30 Functional dyspepsia; E11.9 Type 2 diabetes mellitus without complications; G43.909 Migraine, unspecified, not intractable, without status migrainosus; F17.200 Nicotine dependence, unspecified, uncomplicated; Z79.02 Long term (current) use of antithrombotics/antiplatelets; Z79.1 Long term (current) use of non-steroidal anti-inflammatories (NSAID); Z79.51 Long term (current) use of inhaled steroids; Z79.891 Long term (current) use of opiate analgesic; Z79.899 Other long term (current) drug therapy; Z90.49 Acquired absence of other specified parts of digestive tract; Z80.43 Family history of malignant neoplasm of testis

== ENCOUNTER → 2022-09-10 | Outpatient (CLI) | payer OTHER ==
[~2022-09-10] MED LIST changes: -NS 1,000 ML IV ONE
== END ==
LOC: M WHC 08:13
PROVIDERS: ATTEND Internal Medicine Gastroenterology
DX: K80.20 Calculus of gallbladder without cholecystitis without obstruction (principal); Z90.49 Acquired absence of other specified parts of digestive tract; R11.2 Nausea with vomiting, unspecified

== ENCOUNTER → 2022-09-15 | Outpatient (REF) | payer OTHER ==
[2022-09-15 18:17] LABS: APPEARANCE, URINE CLEAR (CLEAR); BACTERIA, URINE AUTO NEGATIVE (NEGATIVE); BILIRUBIN, URINE AUTO NEGATIVE (NEGATIVE); BLOOD, URINE BLOOD 1+ (NEGATIVE); COLOR, URINE STRAW (YELLOW); GLUCOSE, URINE (UA) AUTO 3+ mg/dL (NEGATIVE); KETONE, URINE AUTO 1+ mg/dL (NEGATIVE); LEUKOCYTE ESTERASE, URINE AUTO TRACE (NEGATIVE); NITRITE, URINE AUTO NEGATIVE (NEGATIVE); PROTEIN, URINE AUTO NEGATIVE (NEGATIVE); RBC, URINE AUTO 3 /HPF (0-3); SQUAMOUS EPITHELIAL CELL UR AU 3 /HPF (0-6); UROBILINOGEN, URINE AUTO 0.2 mg/dL (0.0-2.0); WBC, URINE AUTO 13 /HPF (0-3)
== END ==
LOC: M SMT 17:24
PROVIDERS: ATTEND Nurse Practitioner Women's Health
DX: R30.0 Dysuria (principal)

== ENCOUNTER 2022-11-29 06:51 | Inpatient (IN) | payer OTHER ==
[~2022-11-29] VITALS: Ht 154.9 cm; Wt 68.1 kg
[2022-11-29] MEDS ORDERED: PANTOPRAZOLE 40MG VIAL IV SCH (09:00)
[2022-11-29 09:26] VITALS: BP 116/72
[2022-11-29 09:59] LABS: HEMATOCRIT 43.9 % (36.0-47.0); HEMOGLOBIN 14.6 g/dl (12.0-15.5); MEAN CORPUSCULAR HEMOGLOBIN 29.4 pg (27.0-33.0); MEAN CORPUSCULAR HGB CONC 33.3 g/dl (32.0-36.5); MEAN CORPUSCULAR VOLUME 88.5 fl (80.0-96.0); PLATELET COUNT, AUTOMATED 336 10^3/uL (150-450); RED BLOOD COUNT 4.96 10^6/uL (4.00-5.40); VENOUS BASE EXCESS -11.6 (-2.0-2.0); VENOUS HCO3 13.6 MMOL/L (23.0-27.0); VENOUS O2 SATURATION 98.7 % (60.0-80.0); VENOUS PARTIAL PRESSURE CO2 29.5 mmHg (38.0-50.0); VENOUS PARTIAL PRESSURE O2 131.6 mmHg (30.0-50.0); VENOUS PH 7.281 UNITS (7.330-7.430); VENOUS STANDARD HCO3 15.6 MMOL/L; VENOUS TOTAL CO2 14.5 MMOL/L (24.0-28.0); WHITE BLOOD COUNT 27.6 10^3/uL (4.0-10.0)
[2022-11-29] MEDS ORDERED: OMEP40CA5 PO (10:05)
[2022-11-29] MEDS ORDERED: INSULIN REGULAR IN 0.9 % NACL 100 UNIT in IV 1 EA IV SCH ×2 (10:05)
[2022-11-29] MEDS ORDERED: NS 1,000 ML IV ONE (10:05)
[2022-11-29] MEDS ORDERED: HOME MED LIST COMPLETE! XX SCH (10:10)
[2022-11-29] MEDS ORDERED: D5W/0.9% SODIUM CHLORIDE 1,000 ML IV SCH (10:20)
[2022-11-29 10:27] LABS: ALBUMIN 3.9 G/DL (3.2-5.2); ALKALINE PHOSPHATASE 101 U/L (46-116); ALT/SGPT 14 U/L (7.0-40); AST/SGOT 16 U/L (<34); BILIRUBIN,TOTAL 0.5 MG/DL (0.3-1.2); BLOOD UREA NITROGEN 26 MG/DL (9-23); CALCIUM LEVEL 7.8 MG/DL (8.5-10.1); CARBON DIOXIDE LEVEL 13 MMOL/L (20-31); CHLORIDE LEVEL 108 MMOL/L (98-107); GLOMERULAR FILTRATION RATE > 60.0 (>58); GLUCOSE, FASTING 189 MG/DL (60-100); MAGNESIUM LEVEL 1.8 MG/DL (1.8-2.4); POTASSIUM SERUM 4.8 MMOL/L (3.5-5.1); SODIUM LEVEL 137 MMOL/L (136-145); TOTAL PROTEIN 6.8 G/DL (5.7-8.2)
[2022-11-29] MEDS ORDERED: ISOVUE-370 76% 100ML VIAL As Ordered ONE (10:47)
[2022-11-29 10:56] LABS: HEMOGLOBIN A1c 13.5 % (4.0-6.0)
[2022-11-29 11:14] LABS: LIPASE 155 U/L (12-53)
[2022-11-29 11:15] LABS: AMYLASE 120 U/L (30-118)
[2022-11-29] MEDS: INSULIN IV RATE CHANGE DOCUMENTATION ML/HR XX SCH ×6 (11:35→18:04)
[2022-11-29] MEDS: cefTRIAXone SOD 1 GM in D5W MINI-BAG PLUS 50 ML IV SCH (11:41)
[2022-11-29 11:44] VITALS: BP 128/65
[2022-11-29] MEDS ORDERED: MORPHINE 2 MG/ML 1ML VIAL IV ONE ×2 (12:00→19:00)
[2022-11-29 14:45] LABS: BLOOD UREA NITROGEN 18 MG/DL (9-23); CALCIUM LEVEL 7.9 MG/DL (8.5-10.1); CARBON DIOXIDE LEVEL 17 MMOL/L (20-31); CHLORIDE LEVEL 107 MMOL/L (98-107); CREATININE FOR GFR 0.57 MG/DL (0.55-1.30); GLOMERULAR FILTRATION RATE > 60.0 (>58); GLUCOSE, FASTING 175 MG/DL (60-100); POTASSIUM SERUM 3.8 MMOL/L (3.5-5.1); SODIUM LEVEL 136 MMOL/L (136-145)
[2022-11-29] MEDS ORDERED: KCL 10MEQ/100ML SWI (KRUN) 10 MEQ in IV 1 EA IV ONE (15:45)
[2022-11-29 16:00] VITALS: BP 129/75
[2022-11-29 18:37] LABS: VENOUS BASE EXCESS -7.2 (-2.0-2.0); VENOUS HCO3 18.9 MMOL/L (23.0-27.0); VENOUS O2 SATURATION 96.2 % (60.0-80.0); VENOUS PARTIAL PRESSURE CO2 40.1 mmHg (38.0-50.0); VENOUS PARTIAL PRESSURE O2 80.4 mmHg (30.0-50.0); VENOUS PH 7.291 UNITS (7.330-7.430); VENOUS STANDARD HCO3 18.7 MMOL/L; VENOUS TOTAL CO2 20.1 MMOL/L (24.0-28.0)
[2022-11-29 19:13] LABS: BLOOD UREA NITROGEN 15 MG/DL (9-23); CALCIUM LEVEL 8.2 MG/DL (8.5-10.1); CARBON DIOXIDE LEVEL 20 MMOL/L (20-31); CHLORIDE LEVEL 109 MMOL/L (98-107); CREATININE FOR GFR 0.56 MG/DL (0.55-1.30); GLOMERULAR FILTRATION RATE > 60.0 (>58); GLUCOSE, FASTING 132 MG/DL (60-100); PHOSPHORUS LEVEL 2.3 MG/DL (2.5-4.9); SODIUM LEVEL 138 MMOL/L (136-145)
[2022-11-29] MEDS ORDERED: GLUCOSE 4GM CHEW TABLET PO PRN (19:45)
[2022-11-29] MEDS ORDERED: DEXTROSE 50% 50ML SYRINGE IV PRN (19:45)
[2022-11-29] MEDS ORDERED: GLUCAGON INJ 1MG VIAL SC PRN (19:45)
[2022-11-29] MEDS: LEVEMIR (INSULIN DETEMIR) 1 UNITS/0.01ML SC SCH ×2 (19:57→21:00)
[2022-11-29 20:00] VITALS: BP 122/70
[2022-11-29] MEDS: INSULIN LISPRO (NovoLOG) PER UNIT SC SCH (20:23)
[2022-11-29] MEDS: ALPRAZolam 0.5 MG TAB PO SCH (21:10)
[2022-11-30] VITALS (7 sets, daily range): BP systolic 113–126; BP diastolic 62–82
[2022-11-30] MEDS ORDERED: ACETAMINOPHEN TAB 650MG DOSE (2X325MG) PO PRN (01:35)
[2022-11-30 04:48] LABS: ALBUMIN 3.4 G/DL (3.2-5.2); ALKALINE PHOSPHATASE 78 U/L (46-116); ALT/SGPT 12 U/L (7.0-40); AST/SGOT 10 U/L (<34); BILIRUBIN,TOTAL 0.6 MG/DL (0.3-1.2); BLOOD UREA NITROGEN 13 MG/DL (9-23); CALCIUM LEVEL 8.7 MG/DL (8.5-10.1); CARBON DIOXIDE LEVEL 22 MMOL/L (20-31); CHLORIDE LEVEL 107 MMOL/L (98-107); CREATININE FOR GFR 0.51 MG/DL (0.55-1.30); GLOMERULAR FILTRATION RATE > 60.0 (>58); GLUCOSE, FASTING 122 MG/DL (60-100); MAGNESIUM LEVEL 1.6 MG/DL (1.8-2.4); POTASSIUM SERUM 3.5 MMOL/L (3.5-5.1); SODIUM LEVEL 137 MMOL/L (136-145); TOTAL PROTEIN 5.6 G/DL (5.7-8.2)
[2022-11-30 07:25] LABS: HEMATOCRIT 40.5 % (36.0-47.0); HEMOGLOBIN 13.4 g/dl (12.0-15.5); MEAN CORPUSCULAR HGB CONC 33.1 g/dl (32.0-36.5); MEAN CORPUSCULAR VOLUME 87.7 fl (80.0-96.0); PLATELET COUNT, AUTOMATED 305 10^3/uL (150-450); RED BLOOD COUNT 4.62 10^6/uL (4.00-5.40); WHITE BLOOD COUNT 17.4 10^3/uL (4.0-10.0)
[2022-11-30] MEDS ORDERED: MAG SULF 1GM/100ML (MAG RUN) 1 GM in IV 1 EA IV ONE (08:00)
[2022-11-30] MEDS: SENOKOT S TAB PO SCH ×2 (08:32→21:45)
[2022-11-30] MEDS: PARoxetine 20MG TABLET PO SCH (08:33)
[2022-11-30] MEDS: PANTOPRAZOLE 40MG TAB (PROTONIX) PO SCH (08:33)
[2022-11-30] MEDS: ALPRAZolam 0.5 MG TAB PO SCH ×2 (08:33→21:45)
[2022-11-30] MEDS: INSULIN LISPRO (NovoLOG) PER UNIT SC SCH ×4 (08:34→21:43)
[2022-11-30] MEDS: LEVEMIR (INSULIN DETEMIR) 1 UNITS/0.01ML SC SCH ×2 (08:34→21:44)
[2022-11-30] MEDS: ENOXAPARIN 40MG/0.4ML SYRINGE (J1650 PER 10MG) SC SCH (08:35)
[2022-11-30] MEDS: ANEXSIA, NORCO 7.5MG/325MG TABLET(HYDROCODONE/APAP) PO PRN ×3 (08:46→21:44)
[2022-11-30] MEDS: cefTRIAXone SOD 1 GM in D5W MINI-BAG PLUS 50 ML IV SCH (12:11)
[2022-12-01 05:46] VITALS: BP 120/72
[2022-12-01] MEDS: ANEXSIA, NORCO 7.5MG/325MG TABLET(HYDROCODONE/APAP) PO PRN (05:56)
[2022-12-01 06:17] LABS: HEMATOCRIT 40.4 % (36.0-47.0); HEMOGLOBIN 13.7 g/dl (12.0-15.5); MEAN CORPUSCULAR HGB CONC 33.9 g/dl (32.0-36.5); MEAN CORPUSCULAR VOLUME 85.6 fl (80.0-96.0); PLATELET COUNT, AUTOMATED 279 10^3/uL (150-450); RED BLOOD COUNT 4.72 10^6/uL (4.00-5.40); WHITE BLOOD COUNT 10.2 10^3/uL (4.0-10.0)
[2022-12-01 06:48] LABS: BLOOD UREA NITROGEN 11 MG/DL (9-23); CALCIUM LEVEL 8.3 MG/DL (8.5-10.1); CARBON DIOXIDE LEVEL 28 MMOL/L (20-31); CHLORIDE LEVEL 104 MMOL/L (98-107); CREATININE FOR GFR 0.47 MG/DL (0.55-1.30); GLOMERULAR FILTRATION RATE > 60.0 (>58); GLUCOSE, FASTING 126 MG/DL (60-100); MAGNESIUM LEVEL 1.6 MG/DL (1.8-2.4); POTASSIUM SERUM 3.2 MMOL/L (3.5-5.1); SODIUM LEVEL 140 MMOL/L (136-145)
[2022-12-01] MEDS ORDERED: POTASSIUM CHLORIDE 10MEQ SR TABLET PO ONE (07:50)
[2022-12-01] MEDS: SENOKOT S TAB PO SCH (08:03)
[2022-12-01] MEDS: MAG SULF 1GM/100ML (MAG RUN) 1 GM in IV 1 EA IV SCH ×2 (08:03→09:22)
[2022-12-01] MEDS: PANTOPRAZOLE 40MG TAB (PROTONIX) PO SCH (08:03)
[2022-12-01] MEDS: LEVEMIR (INSULIN DETEMIR) 1 UNITS/0.01ML SC SCH (08:03)
[2022-12-01] MEDS: ALPRAZolam 0.5 MG TAB PO SCH (08:03)
[2022-12-01] MEDS: ENOXAPARIN 40MG/0.4ML SYRINGE (J1650 PER 10MG) SC SCH (08:04)
[2022-12-01] MEDS: PARoxetine 20MG TABLET PO SCH (08:04)
[2022-12-01] MEDS ORDERED: BASA100I SC (09:52)
== END 2022-12-01 11:40 | disposition home or self-care (01) | DRG 420 ==
LOC: M ICU 09:10 → M MSPAV 11-30 11:48
PROVIDERS: ADMIT Internal Medicine; ATTEND Internal Medicine Nephrology
DX: E11.10 Type 2 diabetes mellitus with ketoacidosis without coma (principal); I10 Essential (primary) hypertension; K76.0 Fatty (change of) liver, not elsewhere classified; G43.909 Migraine, unspecified, not intractable, without status migrainosus; K59.00 Constipation, unspecified; F41.9 Anxiety disorder, unspecified; F32.A Depression, unspecified; K57.30 Diverticulosis of large intestine without perforation or abscess without bleeding; K64.8 Other hemorrhoids; Z88.8 Allergy status to other drugs, medicaments and biological substances; Z79.899 Other long term (current) drug therapy; F17.200 Nicotine dependence, unspecified, uncomplicated; N20.0 Calculus of kidney

== ENCOUNTER → 2023-01-21 | Outpatient (REF) | payer OTHER ==
[~2023-01-21] MED LIST changes: +OMEP40CA5 PO
== END ==
LOC: M SFHCPLAZ 14:42
PROVIDERS: ATTEND Family Medicine
DX: Z53.9 Procedure and treatment not carried out, unspecified reason (principal)

== ENCOUNTER → 2023-01-24 | Outpatient (REF) | payer OTHER | LOC: M SFHCPLAZ 11:50 | PROVIDERS: ATTEND Family Medicine | DX: Z53.9 Procedure and treatment not carried out, unspecified reason (principal) ==

== ENCOUNTER → 2023-08-08 | Outpatient (REF) | payer OTHER ==
[~2023-08-08] MED LIST changes: +GLIP5TAB17 PO; -GLIP5TAB8 PO
== END ==
LOC: M SFHCPLAZ 18:30
PROVIDERS: ATTEND Family Medicine
DX: E13.9 Other specified diabetes mellitus without complications (principal)

== ENCOUNTER 2023-10-10 08:52 | Inpatient (IN) | payer OTHER ==
[~2023-10-10] VITALS: Ht 154.9 cm; Wt 67.7 kg
[2023-10-10] MEDS: NS 1,000 ML IV ONE ×3 (09:21→10:51)
[2023-10-10 09:28] LABS: BASO # 0.1 10^3/uL (0.0-0.2); BASO % 0.2 % (0.0-1.0); HEMOGLOBIN 13.8 g/dl (12.0-15.5); LYMPH # 1.6 10^3/uL (1.5-5.0); LYMPH % 4.5 % (24.0-44.0); MEAN CORPUSCULAR HGB CONC 30.7 g/dl (32.0-36.5); MEAN CORPUSCULAR VOLUME 97.8 fl (80.0-96.0); MONO # 1.3 10^3/uL (0.0-0.8); MONO % 3.5 % (2.0-8.0); NEUTROPHILS # 32.9 10^3/uL (1.5-8.5); NEUTROPHILS % 90.9 % (36.0-66.0); PLATELET COUNT, AUTOMATED 465 10^3/uL (150-450)
[2023-10-10 09:50] LABS: VENOUS BASE EXCESS -27.3 (-2.0-2.0); VENOUS PARTIAL PRESSURE CO2 19.5 mmHg (38.0-50.0); VENOUS PH 6.929 UNITS (7.330-7.430); VENOUS STANDARD HCO3 6.4 MMOL/L; VENOUS TOTAL CO2 4.6 MMOL/L (24.0-28.0); WHITE BLOOD COUNT 36.2 10^3/uL (4.0-10.0)
[2023-10-10 09:51] LABS: LIPASE 59 U/L (12-53)
[2023-10-10 09:53] LABS: ALBUMIN 4.9 G/DL (3.2-5.2); ALKALINE PHOSPHATASE 108 U/L (46-116); ALT/SGPT 17 U/L (7.0-40); AST/SGOT 9 U/L (<34); BILIRUBIN,DIRECT < 0.1 MG/DL (<0.4); BILIRUBIN,TOTAL 0.2 MG/DL (0.3-1.2); TOTAL PROTEIN 8.1 G/DL (5.7-8.2)
[2023-10-10 09:58] LABS: ACETONE/KETONE > 4.50 MMOL/L (0.02-0.27); HCG, SERUM QUALITATIVE NEGATIVE (NEGATIVE)
[2023-10-10] MEDS ORDERED: INSULIN IV RATE CHANGE DOCUMENTATION ML/HR XX SCH (10:00)
[2023-10-10] MEDS ORDERED: MED REC IN PROGRESS XX SCH (10:10)
[2023-10-10] MEDS: PIPERACILLIN/TAZOBACTAM SOD 3.375 GM in D5W MINI-BAG PLUS 50 ML IV ONE (10:15)
[2023-10-10] MEDS: HumuLIN R (REGULAR) INSULIN (NovoLIN R) **100U/ML** PER UNIT IV ONE (10:16)
[2023-10-10] MEDS: INSULIN REGULAR IN 0.9 % NACL 100 UNIT in IV 1 EA IV SCH ×2 (10:24→14:07)
[2023-10-10] MEDS ORDERED: LOSA25TA13 PO (10:56)
[2023-10-10] MEDS ORDERED: INSU100I24 SQ (10:56)
[2023-10-10] MEDS ORDERED: ALBU8.5H INH (10:56)
[2023-10-10] MEDS ORDERED: HYDR-3713 PO (10:56)
[2023-10-10] MEDS ORDERED: HOME MED LIST COMPLETE! XX SCH (11:00)
[2023-10-10 11:04] LABS: BLOOD UREA NITROGEN 15 MG/DL (9-23); CALCIUM LEVEL 9.4 MG/DL (8.5-10.1); CARBON DIOXIDE LEVEL < 10.0 MMOL/L (20-31); CHLORIDE LEVEL 103 MMOL/L (98-107); CREATININE FOR GFR 0.79 MG/DL (0.55-1.30); GLOMERULAR FILTRATION RATE > 60.0 (>58); GLUCOSE, FASTING 595 MG/DL (60-100); MAGNESIUM LEVEL 2.2 MG/DL (1.8-2.4); PHOSPHORUS LEVEL 4.3 MG/DL (2.5-4.9); POTASSIUM SERUM 5.1 MMOL/L (3.5-5.1); SODIUM LEVEL 130 MMOL/L (136-145)
[2023-10-10] MEDS ORDERED: ISOVUE-370 76% 100ML VIAL As Ordered ONE (11:07)
[2023-10-10 11:24] LABS: HEMOGLOBIN A1c 12.3 % (4.0-6.0)
[2023-10-10] MEDS: PANTOPRAZOLE 40MG VIAL IV SCH (14:01)
[2023-10-10 14:24] LABS: BLOOD UREA NITROGEN 14 MG/DL (9-23); CALCIUM LEVEL 8.4 MG/DL (8.5-10.1); CARBON DIOXIDE LEVEL < 10.0 MMOL/L (20-31); CHLORIDE LEVEL 111 MMOL/L (98-107); CREATININE FOR GFR 0.69 MG/DL (0.55-1.30); FREE T4 0.87 NG/DL (0.89-1.76); GLOMERULAR FILTRATION RATE > 60.0 (>58); GLUCOSE, FASTING 217 MG/DL (60-100); MAGNESIUM LEVEL 1.8 MG/DL (1.8-2.4); PHOSPHORUS LEVEL 1.2 MG/DL (2.5-4.9); POTASSIUM SERUM 4.2 MMOL/L (3.5-5.1); SODIUM LEVEL 137 MMOL/L (136-145); THYROID STIMULATING HORMONE 0.324 uIU/ML (0.55-4.78)
[2023-10-10] MEDS: KCL 40MEQ IN D5/0.45NS 1000ML 1,000 ML IV SCH ×2 (15:00→20:32)
[2023-10-10] MEDS ORDERED: DEXTROSE 50% 50ML SYRINGE As Ordered ONE (15:41)
[2023-10-10] MEDS: DEXTROSE 50% 50ML SYRINGE IV STA ×3 (15:52→20:32)
[2023-10-10] MEDS: INSULIN IV RATE CHANGE DOCUMENTATION ML/HR XX SCH (16:14)
[2023-10-10 17:00] VITALS: BP 150/70; TEMP 99.6; O2SAT 99
[2023-10-10] MEDS ORDERED: ALBUTEROL 90 MCG/ACT 8GM HFA INHALER INH PRN (17:50)
[2023-10-10 18:00] VITALS: BP 133/63; TEMP 99; O2SAT 98
[2023-10-10 18:23] LABS: BLOOD UREA NITROGEN 10 MG/DL (9-23); CALCIUM LEVEL 8.5 MG/DL (8.5-10.1); CARBON DIOXIDE LEVEL 12 MMOL/L (20-31); CHLORIDE LEVEL 114 MMOL/L (98-107); CREATININE FOR GFR 0.58 MG/DL (0.55-1.30); GLOMERULAR FILTRATION RATE > 60.0 (>58); GLUCOSE, FASTING 221 MG/DL (60-100); MAGNESIUM LEVEL 1.7 MG/DL (1.8-2.4); PHOSPHORUS LEVEL 0.6 MG/DL (2.5-4.9); POTASSIUM SERUM 3.8 MMOL/L (3.5-5.1); SODIUM LEVEL 137 MMOL/L (136-145)
[2023-10-10 19:00] VITALS: BP 145/64; O2SAT 98
[2023-10-10] MEDS: SODIUM PHOSPHATE INJ 30 MMOL in D5W 500 ML IV ONE (19:39)
[2023-10-10 20:00] VITALS: BP 134/62; TEMP 99.5; O2SAT 98
[2023-10-10] MEDS: SENNA 8.6 MG TAB (SENOKOT) PO SCH (20:08)
[2023-10-10] MEDS: NORCO, ANEXSIA 5/325MG TABLET (HYDROcodone/ACETAMINOPHEN) PO PRN (20:08)
[2023-10-10] MEDS: SUMAtriptan SUCCINATE 25 MG TAB PO PRN (20:08)
[2023-10-10] MEDS: MAG SULF 1GM/100ML (MAG RUN) 1 GM in IV 1 EA IV ONE (20:09)
[2023-10-10 21:00] VITALS: BP 136/60; O2SAT 98
[2023-10-10 22:00] VITALS: BP 174/89; O2SAT 100
[2023-10-10] MEDS ORDERED: GLUCOSE 4GM CHEW TABLET PO PRN (22:05)
[2023-10-10] MEDS: DEXTROSE 50% 50ML SYRINGE IV PRN (22:05)
[2023-10-10] MEDS ORDERED: GLUCAGON INJ 1MG VIAL SC PRN (22:05)
[2023-10-10 22:41] LABS: BLOOD UREA NITROGEN 7 MG/DL (9-23); CALCIUM LEVEL 8.3 MG/DL (8.5-10.1); CARBON DIOXIDE LEVEL 16 MMOL/L (20-31); CHLORIDE LEVEL 114 MMOL/L (98-107); CREATININE FOR GFR 0.48 MG/DL (0.55-1.30); GLOMERULAR FILTRATION RATE > 60.0 (>58); GLUCOSE, FASTING 152 MG/DL (60-100); PHOSPHORUS LEVEL 1.3 MG/DL (2.5-4.9); POTASSIUM SERUM 3.3 MMOL/L (3.5-5.1); SODIUM LEVEL 140 MMOL/L (136-145)
[2023-10-10] MEDS: KCL 10MEQ/100ML SWI (KRUN) 10 MEQ in IV 1 EA IV ONE (23:41)
[2023-10-10] MEDS: POTASSIUM CHLORIDE 10MEQ SR TABLET PO ONE (23:41)
[2023-10-11] VITALS (12 sets, daily range): BP systolic 129–186; BP diastolic 72–88; TEMP 98.1–99.7; O2SAT 97–100
[2023-10-11] MEDS ORDERED: POTASSIUM PHOSPHATE INJ 15 MMOL in D5W 250 ML IV ONE (01:00)
[2023-10-11 02:40] LABS: BLOOD UREA NITROGEN 7 MG/DL (9-23); CALCIUM LEVEL 8.3 MG/DL (8.5-10.1); CARBON DIOXIDE LEVEL 17 MMOL/L (20-31); CHLORIDE LEVEL 115 MMOL/L (98-107); CREATININE FOR GFR 0.48 MG/DL (0.55-1.30); GLOMERULAR FILTRATION RATE > 60.0 (>58); GLUCOSE, FASTING 137 MG/DL (60-100); PHOSPHORUS LEVEL 0.9 MG/DL (2.5-4.9); POTASSIUM SERUM 3.7 MMOL/L (3.5-5.1); SODIUM LEVEL 138 MMOL/L (136-145)
[2023-10-11] MEDS: LEVEMIR (INSULIN DETEMIR) 1 UNITS/0.01ML SC SCH ×2 (03:40→20:02)
[2023-10-11] MEDS: METOCLOPRAMIDE INJ 10MG/2ML VIAL IV PRN (05:18)
[2023-10-11] MEDS: POTASSIUM PHOSPHATE INJ 15 MMOL in D5W 250 ML IV ONE (06:06)
[2023-10-11 06:32] LABS: BASO % 0.2 % (0.0-1.0); EOS % 0.1 % (0.0-3.0); HEMATOCRIT 38.4 % (36.0-47.0); HEMOGLOBIN 12.7 g/dl (12.0-15.5); LYMPH # 2.4 10^3/uL (1.5-5.0); LYMPH % 11.4 % (24.0-44.0); MEAN CORPUSCULAR HEMOGLOBIN 29.9 pg (27.0-33.0); MEAN CORPUSCULAR HGB CONC 33.1 g/dl (32.0-36.5); MEAN CORPUSCULAR VOLUME 90.4 fl (80.0-96.0); MONO % 4.9 % (2.0-8.0); NEUTROPHILS # 17.5 10^3/uL (1.5-8.5); RED BLOOD COUNT 4.25 10^6/uL (4.00-5.40); WHITE BLOOD COUNT 21.1 10^3/uL (4.0-10.0)
[2023-10-11 06:39] LABS: PLATELET COUNT, AUTOMATED 335 10^3/uL (150-450)
[2023-10-11] MEDS ORDERED: hydrALAZINE 20MG/ML 1ML VIAL IV ONE (06:45)
[2023-10-11 06:47] LABS: BLOOD UREA NITROGEN 6 MG/DL (9-23); CALCIUM LEVEL 8.8 MG/DL (8.5-10.1); CARBON DIOXIDE LEVEL 15 MMOL/L (20-31); CHLORIDE LEVEL 109 MMOL/L (98-107); CREATININE FOR GFR 0.52 MG/DL (0.55-1.30); GLOMERULAR FILTRATION RATE > 60.0 (>58); GLUCOSE, FASTING 188 MG/DL (60-100); POTASSIUM SERUM 3.9 MMOL/L (3.5-5.1); SODIUM LEVEL 137 MMOL/L (136-145)
[2023-10-11] MEDS: ONDANSETRON 4MG 2ML VIAL IV ONE ×2 (06:57→20:02)
[2023-10-11] MEDS: hydrALAZINE 20MG/ML 1ML VIAL IV PRN (06:57)
[2023-10-11] MEDS: INSULIN LISPRO (NovoLOG) PER UNIT SC SCH ×2 (07:30→20:02)
[2023-10-11] MEDS ORDERED: ALPRAZolam 0.5 MG TAB PO PRN (07:35)
[2023-10-11] MEDS: PANTOPRAZOLE 40MG VIAL IV ONE (07:52)
[2023-10-11] MEDS: ALPRAZolam 0.5 MG TAB PO PRN (07:53)
[2023-10-11] MEDS: LR 1,000 ML IV SCH (08:42)
[2023-10-11] MEDS ORDERED: LEVEMIR (INSULIN DETEMIR) 1 UNITS/0.01ML SC SCH (09:00)
[2023-10-11] MEDS: LOSARTAN 25 MG TAB PO SCH (09:00)
[2023-10-11] MEDS: DOCUSATE SODIUM 100MG CAPSULE PO SCH (09:00)
[2023-10-11] MEDS: PARoxetine 20MG TABLET PO SCH (09:00)
[2023-10-11] MEDS: ENOXAPARIN 40MG/0.4ML SYRINGE (J1650 PER 10MG) SC SCH (10:23)
[2023-10-11 10:37] LABS: BLOOD UREA NITROGEN < 5 MG/DL (9-23); CALCIUM LEVEL 8.8 MG/DL (8.5-10.1); CARBON DIOXIDE LEVEL 14 MMOL/L (20-31); CHLORIDE LEVEL 109 MMOL/L (98-107); CREATININE FOR GFR 0.49 MG/DL (0.55-1.30); GLOMERULAR FILTRATION RATE > 60.0 (>58); GLUCOSE, FASTING 190 MG/DL (60-100); POTASSIUM SERUM 3.5 MMOL/L (3.5-5.1); SODIUM LEVEL 137 MMOL/L (136-145)
[2023-10-11] MEDS ORDERED: CHLORASEPTIC SPRAY MT PRN (12:45)
[2023-10-11] MEDS: POTASSIUM CHLORIDE INJ 40 MEQ in LR 1,000 ML IV SCH (15:02)
[2023-10-11] MEDS: POTASSIUM PHOSPHATE INJ 30 MMOL in D5W 500 ML IV ONE (16:07)
[2023-10-11] MEDS ORDERED: SODIUM BICARBONATE 150 MEQ in D5W 1,000 ML IV SCH (18:00)
[2023-10-11 22:49] LABS: BLOOD UREA NITROGEN < 5 MG/DL (9-23); CALCIUM LEVEL 8.3 MG/DL (8.5-10.1); CARBON DIOXIDE LEVEL 23 MMOL/L (20-31); CHLORIDE LEVEL 105 MMOL/L (98-107); CREATININE FOR GFR 0.45 MG/DL (0.55-1.30); GLOMERULAR FILTRATION RATE > 60.0 (>58); GLUCOSE, FASTING 160 MG/DL (60-100); MAGNESIUM LEVEL 1.6 MG/DL (1.8-2.4); PHOSPHORUS LEVEL 2.1 MG/DL (2.5-4.9); POTASSIUM SERUM 3.5 MMOL/L (3.5-5.1); SODIUM LEVEL 139 MMOL/L (136-145)
[2023-10-11] MEDS: MAG SULF 1GM/100ML (MAG RUN) 1 GM in IV 1 EA IV SCH (23:17)
[2023-10-12] MEDS: POTASSIUM PHOSPHATE INJ 20 MMOL in D5W 250 ML IV ONE (01:07)
[2023-10-12] MEDS: SODIUM BICARBONATE 150 MEQ in D5W 1,000 ML IV SCH (01:07)
[2023-10-12 04:15] VITALS: BP 158/90; TEMP 98.5; O2SAT 99
[2023-10-12 05:43] LABS: BASO % 0.3 % (0.0-1.0); EOS # 0.1 10^3/uL (0.0-0.5); EOS % 0.6 % (0.0-3.0); HEMATOCRIT 39.9 % (36.0-47.0); HEMOGLOBIN 13.4 g/dl (12.0-15.5); LYMPH # 4.4 10^3/uL (1.5-5.0); LYMPH % 33.2 % (24.0-44.0); MEAN CORPUSCULAR HEMOGLOBIN 29.3 pg (27.0-33.0); MEAN CORPUSCULAR HGB CONC 33.6 g/dl (32.0-36.5); MEAN CORPUSCULAR VOLUME 87.3 fl (80.0-96.0); MONO # 0.8 10^3/uL (0.0-0.8); MONO % 6.4 % (2.0-8.0); NEUTROPHILS # 7.8 10^3/uL (1.5-8.5); NEUTROPHILS % 59.2 % (36.0-66.0); PLATELET COUNT, AUTOMATED 305 10^3/uL (150-450); RED BLOOD COUNT 4.57 10^6/uL (4.00-5.40); WHITE BLOOD COUNT 13.2 10^3/uL (4.0-10.0)
[2023-10-12 05:59] LABS: ALKALINE PHOSPHATASE 84 U/L (46-116); ALT/SGPT 14 U/L (7.0-40); AST/SGOT 8 U/L (<34); BILIRUBIN,TOTAL 0.6 MG/DL (0.3-1.2); BLOOD UREA NITROGEN < 5 MG/DL (9-23); CALCIUM LEVEL 8.7 MG/DL (8.5-10.1); CARBON DIOXIDE LEVEL 24 MMOL/L (20-31); CHLORIDE LEVEL 102 MMOL/L (98-107); CREATININE FOR GFR 0.41 MG/DL (0.55-1.30); GLOMERULAR FILTRATION RATE > 60.0 (>58); GLUCOSE, FASTING 131 MG/DL (60-100); MAGNESIUM LEVEL 2.3 MG/DL (1.8-2.4); PHOSPHORUS LEVEL 3.3 MG/DL (2.5-4.9); POTASSIUM SERUM 3.6 MMOL/L (3.5-5.1); SODIUM LEVEL 138 MMOL/L (136-145); TOTAL PROTEIN 6.8 G/DL (5.7-8.2)
[2023-10-12 06:20] VITALS: BP 162/92
[2023-10-12 08:00] VITALS: BP 172/70; TEMP 99.4; O2SAT 98
[2023-10-12] MEDS: ONDANSETRON 4MG 2ML VIAL IV STA (08:38)
[2023-10-12] MEDS: PANTOPRAZOLE 40MG VIAL IV SCH (10:28)
[2023-10-12 10:33] VITALS: BP 172/70
[2023-10-12 12:00] VITALS: BP 152/78; TEMP 99.3; O2SAT 99
[2023-10-12] MEDS ORDERED: REGL5TAB2 PO (17:11)
== END 2023-10-12 17:35 | disposition home or self-care (01) | DRG 420 ==
LOC: M ED 09:44 → M ED INP 13:02 → M ICU 15:06
PROVIDERS: ADMIT Internal Medicine Pulmonary Disease; ATTEND Internal Medicine Pulmonary Disease
DX: E11.10 Type 2 diabetes mellitus with ketoacidosis without coma (principal); I10 Essential (primary) hypertension; F32.A Depression, unspecified; E11.43 Type 2 diabetes mellitus with diabetic autonomic (poly)neuropathy; F41.9 Anxiety disorder, unspecified; Z79.4 Long term (current) use of insulin; Z79.899 Other long term (current) drug therapy; Z88.8 Allergy status to other drugs, medicaments and biological substances; G43.909 Migraine, unspecified, not intractable, without status migrainosus; E28.2 Polycystic ovarian syndrome; Z87.891 Personal history of nicotine dependence

== ENCOUNTER 2023-10-13 18:36 | Emergency (ER) | payer OTHER ==
[~2023-10-13] VITALS: Ht 154.9 cm; Wt 65.9 kg
[~2023-10-13 18:36] MED LIST changes: +HYDR-3713 PO; +INSU100I24 SQ; +LOSA25TA13 PO
[2023-10-13 18:55] VITALS: BP 160/90; TEMP 98.5; O2SAT 100
== END 2023-10-13 21:25 | disposition left against medical advice (07) ==
LOC: EDBD 18:36 → M ED 18:36
DX: Z53.21 Procedure and treatment not carried out due to patient leaving prior to being seen by health care provider (principal)

== ENCOUNTER 2023-10-15 08:18 | Inpatient (IN) | payer OTHER ==
[~2023-10-15] VITALS: Ht 154.9 cm; Wt 65.1 kg
[2023-10-15] VITALS (12 sets, daily range): BP systolic 107–149; BP diastolic 59–84; TEMP 98.5–99.5; O2SAT 95–98
[2023-10-15 09:34] LABS: VENOUS BASE EXCESS -13.6 (-2.0-2.0); VENOUS HCO3 10.4 MMOL/L (23.0-27.0); VENOUS O2 SATURATION 99.4 % (60.0-80.0); VENOUS PARTIAL PRESSURE O2 196.9 mmHg (30.0-50.0); VENOUS PH 7.311 UNITS (7.330-7.430); VENOUS STANDARD HCO3 14.2 MMOL/L
[2023-10-15] MEDS: HALOPERIDOL 5MG/ML 1ML VIAL IV ONE (09:41)
[2023-10-15 09:47] LABS: BASO # 0.1 10^3/uL (0.0-0.2); BASO % 0.5 % (0.0-1.0); EOS # 0.1 10^3/uL (0.0-0.5); EOS % 0.7 % (0.0-3.0); HEMATOCRIT 39.7 % (36.0-47.0); HEMOGLOBIN 13.1 g/dl (12.0-15.5); LYMPH % 11.2 % (24.0-44.0); MEAN CORPUSCULAR HEMOGLOBIN 29.3 pg (27.0-33.0); MEAN CORPUSCULAR VOLUME 88.8 fl (80.0-96.0); MONO # 0.5 10^3/uL (0.0-0.8); MONO % 2.8 % (2.0-8.0); NEUTROPHILS # 14.8 10^3/uL (1.5-8.5); NEUTROPHILS % 84.5 % (36.0-66.0); PLATELET COUNT, AUTOMATED 345 10^3/uL (150-450); RED BLOOD COUNT 4.47 10^6/uL (4.00-5.40); WHITE BLOOD COUNT 17.6 10^3/uL (4.0-10.0)
[2023-10-15 10:03] LABS: LIPASE 36 U/L (12-53)
[2023-10-15 10:14] LABS: AMPHETAMINES LEVEL URINE NEGATIVE (NEGATIVE); BARBITURATES URINE NEGATIVE (NEGATIVE)
[2023-10-15 10:15] LABS: COCAINE METABOLITE URINE NEGATIVE (NEGATIVE); METHADONE URINE NEGATIVE (NEGATIVE); OPIATES URINE NEGATIVE (NEGATIVE); PHENCYCLIDINE URINE NEGATIVE (NEGATIVE)
[2023-10-15 10:20] LABS: ACETONE/KETONE > 4.50 MMOL/L (0.02-0.27); ALBUMIN 4.4 G/DL (3.2-5.2); ALKALINE PHOSPHATASE 89 U/L (46-116); ALT/SGPT 13 U/L (7.0-40); AST/SGOT 9 U/L (<34); BENZODIAZEPINES URINE POSITIVE (NEGATIVE); BILIRUBIN,DIRECT 0.1 MG/DL (<0.4); BILIRUBIN,TOTAL 0.4 MG/DL (0.3-1.2); BLOOD UREA NITROGEN 17 MG/DL (9-23); CALCIUM LEVEL 9.2 MG/DL (8.5-10.1); CANNABINOIDS URINE POSITIVE (NEGATIVE); CARBON DIOXIDE LEVEL < 10.0 MMOL/L (20-31); CHLORIDE LEVEL 97 MMOL/L (98-107); GLOMERULAR FILTRATION RATE > 60.0 (>58); GLUCOSE, FASTING 533 MG/DL (60-100); MAGNESIUM LEVEL 1.8 MG/DL (1.8-2.4); PHOSPHORUS LEVEL 3.3 MG/DL (2.5-4.9); SODIUM LEVEL 130 MMOL/L (136-145); TOTAL PROTEIN 7.2 G/DL (5.7-8.2)
[2023-10-15] MEDS ORDERED: INSULIN IV RATE CHANGE DOCUMENTATION ML/HR XX SCH ×2 (10:55→11:55)
[2023-10-15] MEDS: HumuLIN R (REGULAR) INSULIN (NovoLIN R) **100U/ML** PER UNIT IV ONE (11:06)
[2023-10-15] MEDS: INSULIN REGULAR IN 0.9 % NACL 100 UNIT in IV 1 EA IV SCH ×2 (11:07→13:29)
[2023-10-15] MEDS ORDERED: POTASSIUM CHLORIDE INJ 40 MEQ in D5W/0.45% SODIUM CHLORIDE 1,000 ML IV SCH (11:55)
[2023-10-15] MEDS ORDERED: METO5TAB2 PO (12:31)
[2023-10-15] MEDS ORDERED: HOME MED LIST COMPLETE! XX SCH (12:35)
[2023-10-15 13:03] LABS: BLOOD UREA NITROGEN 16 MG/DL (9-23); CALCIUM LEVEL 9.2 MG/DL (8.5-10.1); CARBON DIOXIDE LEVEL < 10.0 MMOL/L (20-31); CHLORIDE LEVEL 102 MMOL/L (98-107); CREATININE FOR GFR 0.71 MG/DL (0.55-1.30); GLOMERULAR FILTRATION RATE > 60.0 (>58); GLUCOSE, FASTING 404 MG/DL (60-100); POTASSIUM SERUM 3.8 MMOL/L (3.5-5.1); SODIUM LEVEL 135 MMOL/L (136-145)
[2023-10-15] MEDS: KCL 40MEQ IN D5/0.45NS 1000ML 1,000 ML IV SCH (13:13)
[2023-10-15] MEDS: METOCLOPRAMIDE INJ 10MG/2ML VIAL IV SCH (13:15)
[2023-10-15 17:47] LABS: BLOOD UREA NITROGEN 15 MG/DL (9-23); CALCIUM LEVEL 9.1 MG/DL (8.5-10.1); CARBON DIOXIDE LEVEL 19 MMOL/L (20-31); CHLORIDE LEVEL 106 MMOL/L (98-107); CREATININE FOR GFR 0.59 MG/DL (0.55-1.30); GLOMERULAR FILTRATION RATE > 60.0 (>58); GLUCOSE, FASTING 137 MG/DL (60-100); PHOSPHORUS LEVEL 1.4 MG/DL (2.5-4.9); POTASSIUM SERUM 3.7 MMOL/L (3.5-5.1); SODIUM LEVEL 138 MMOL/L (136-145)
[2023-10-15] MEDS: DEXTROSE 50% 50ML SYRINGE IV STA (18:49)
[2023-10-15] MEDS ORDERED: GLUCOSE 4GM CHEW TABLET PO PRN (20:15)
[2023-10-15] MEDS ORDERED: GLUCAGON INJ 1MG VIAL SC PRN (20:15)
[2023-10-15] MEDS ORDERED: DEXTROSE 50% 50ML SYRINGE IV PRN (20:15)
[2023-10-15] MEDS: DEXTROSE 50% 50ML SYRINGE IV PRN (20:24)
[2023-10-15] MEDS: SODIUM PHOSPHATE INJ 30 MMOL in D5W 500 ML IV ONE (20:45)
[2023-10-15 20:58] LABS: BLOOD UREA NITROGEN 14 MG/DL (9-23); CALCIUM LEVEL 8.7 MG/DL (8.5-10.1); CARBON DIOXIDE LEVEL 22 MMOL/L (20-31); CHLORIDE LEVEL 108 MMOL/L (98-107); GLOMERULAR FILTRATION RATE > 60.0 (>58); GLUCOSE, FASTING 140 MG/DL (60-100); POTASSIUM SERUM 3.9 MMOL/L (3.5-5.1); SODIUM LEVEL 139 MMOL/L (136-145)
[2023-10-15] MEDS: LEVEMIR (INSULIN DETEMIR) 1 UNITS/0.01ML SC SCH (21:39)
[2023-10-15] MEDS: ALPRAZolam 0.5 MG TAB PO SCH (21:39)
[2023-10-15] MEDS: NORCO, ANEXSIA 5/325MG TABLET (HYDROcodone/ACETAMINOPHEN) PO PRN (21:39)
[2023-10-16] VITALS (13 sets, daily range): BP systolic 112–146; BP diastolic 58–91; TEMP 97.8–99; O2SAT 95–100
[2023-10-16 00:59] LABS: BLOOD UREA NITROGEN 9 MG/DL (9-23); CALCIUM LEVEL 8.8 MG/DL (8.5-10.1); CARBON DIOXIDE LEVEL 21 MMOL/L (20-31); CHLORIDE LEVEL 105 MMOL/L (98-107); CREATININE FOR GFR 0.57 MG/DL (0.55-1.30); GLOMERULAR FILTRATION RATE > 60.0 (>58); GLUCOSE, FASTING 204 MG/DL (60-100); POTASSIUM SERUM 3.3 MMOL/L (3.5-5.1); SODIUM LEVEL 135 MMOL/L (136-145)
[2023-10-16 05:08] LABS: BLOOD UREA NITROGEN 10 MG/DL (9-23); CALCIUM LEVEL 8.6 MG/DL (8.5-10.1); CARBON DIOXIDE LEVEL 22 MMOL/L (20-31); CHLORIDE LEVEL 106 MMOL/L (98-107); GLOMERULAR FILTRATION RATE > 60.0 (>58); GLUCOSE, FASTING 145 MG/DL (60-100); POTASSIUM SERUM 3.8 MMOL/L (3.5-5.1); SODIUM LEVEL 136 MMOL/L (136-145)
[2023-10-16] MEDS: LOSARTAN 25 MG TAB PO SCH (08:23)
[2023-10-16] MEDS: METOCLOPRAMIDE 5 MG TAB PO SCH (08:23)
[2023-10-16] MEDS: PARoxetine 20MG TABLET PO SCH (08:23)
[2023-10-16] MEDS: PANTOPRAZOLE 40MG VIAL IV SCH (08:24)
[2023-10-16] MEDS: INSULIN LISPRO (NovoLOG) PER UNIT SC SCH ×2 (08:24→20:03)
[2023-10-16] MEDS: ENOXAPARIN 40MG/0.4ML SYRINGE (J1650 PER 10MG) SC SCH (08:24)
[2023-10-16 08:36] LABS: BASO % 0.3 % (0.0-1.0); EOS # 0.4 10^3/uL (0.0-0.5); HEMATOCRIT 34.4 % (36.0-47.0); HEMOGLOBIN 11.6 g/dl (12.0-15.5); LYMPH # 3.2 10^3/uL (1.5-5.0); LYMPH % 24.9 % (24.0-44.0); MEAN CORPUSCULAR HEMOGLOBIN 29.6 pg (27.0-33.0); MEAN CORPUSCULAR HGB CONC 33.7 g/dl (32.0-36.5); MEAN CORPUSCULAR VOLUME 87.8 fl (80.0-96.0); MONO # 0.8 10^3/uL (0.0-0.8); MONO % 5.8 % (2.0-8.0); NEUTROPHILS # 8.5 10^3/uL (1.5-8.5); NEUTROPHILS % 65.7 % (36.0-66.0); PLATELET COUNT, AUTOMATED 281 10^3/uL (150-450); RED BLOOD COUNT 3.92 10^6/uL (4.00-5.40); WHITE BLOOD COUNT 12.9 10^3/uL (4.0-10.0)
[2023-10-16] MEDS: METOCLOPRAMIDE 10MG TAB PO SCH (15:29)
[2023-10-17 04:00] VITALS: BP 135/75; TEMP 98; O2SAT 100
[2023-10-17 07:57] LABS: BASO # 0.1 10^3/uL (0.0-0.2); BASO % 0.5 % (0.0-1.0); EOS # 0.3 10^3/uL (0.0-0.5); EOS % 2.6 % (0.0-3.0); HEMATOCRIT 38.6 % (36.0-47.0); LYMPH # 3.1 10^3/uL (1.5-5.0); LYMPH % 26.9 % (24.0-44.0); MEAN CORPUSCULAR HGB CONC 33.7 g/dl (32.0-36.5); MEAN CORPUSCULAR VOLUME 89.1 fl (80.0-96.0); MONO # 0.8 10^3/uL (0.0-0.8); MONO % 7.2 % (2.0-8.0); NEUTROPHILS # 7.2 10^3/uL (1.5-8.5); NEUTROPHILS % 62.5 % (36.0-66.0); PLATELET COUNT, AUTOMATED 334 10^3/uL (150-450); RED BLOOD COUNT 4.33 10^6/uL (4.00-5.40); WHITE BLOOD COUNT 11.5 10^3/uL (4.0-10.0)
[2023-10-17 08:21] LABS: BLOOD UREA NITROGEN 8 MG/DL (9-23); CALCIUM LEVEL 8.7 MG/DL (8.5-10.1); CARBON DIOXIDE LEVEL 28 MMOL/L (20-31); CHLORIDE LEVEL 103 MMOL/L (98-107); CREATININE FOR GFR 0.49 MG/DL (0.55-1.30); GLOMERULAR FILTRATION RATE > 60.0 (>58); GLUCOSE, FASTING 147 MG/DL (60-100); POTASSIUM SERUM 3.6 MMOL/L (3.5-5.1); SODIUM LEVEL 138 MMOL/L (136-145)
[2023-10-17 08:53] LABS: FREE T3 3.1 PG/ML (2.3-4.2); FREE T4 1.16 NG/DL (0.89-1.76); THYROID STIMULATING HORMONE 1.522 uIU/ML (0.55-4.78)
[2023-10-17 14:21] VITALS: BP 121/73; TEMP 97.8; O2SAT 100
[2023-10-17] MEDS: INSULIN LISPRO (NovoLOG) PER UNIT SC SCH (18:23)
[2023-10-17] MEDS: LEVEMIR (INSULIN DETEMIR) 1 UNITS/0.01ML SC ONE (18:24)
[2023-10-17 21:04] VITALS: BP 126/70; TEMP 97.7; O2SAT 99
[2023-10-18 05:28] VITALS: BP 112/75; TEMP 97.8; O2SAT 98
[2023-10-18 05:36] LABS: BLOOD UREA NITROGEN 12 MG/DL (9-23); CALCIUM LEVEL 8.1 MG/DL (8.5-10.1); CARBON DIOXIDE LEVEL 30 MMOL/L (20-31); CHLORIDE LEVEL 105 MMOL/L (98-107); CREATININE FOR GFR 0.51 MG/DL (0.55-1.30); GLOMERULAR FILTRATION RATE > 60.0 (>58); GLUCOSE, FASTING 199 MG/DL (60-100); PHOSPHORUS LEVEL 3.7 MG/DL (2.5-4.9); POTASSIUM SERUM 3.6 MMOL/L (3.5-5.1); SODIUM LEVEL 141 MMOL/L (136-145)
[2023-10-18] MEDS: LEVEMIR (INSULIN DETEMIR) 1 UNITS/0.01ML SC SCH (08:27)
[2023-10-18] MEDS ORDERED: INSU100I24 SQ ×2 (11:37→11:43)
[2023-10-18] MEDS ORDERED: BASA100I SC (11:37)
[2023-10-18] MEDS ORDERED: METO10TA2 PO (11:37)
[2023-10-18] MEDS: INSULIN LISPRO (NovoLOG) PER UNIT SC SCH (11:54)
== END 2023-10-18 13:10 | disposition home or self-care (01) | DRG 420 ==
LOC: M ED 09:02 → M ED INP 11:53 → M ICU 12:42 → M MS4PR 10-16 18:44
PROVIDERS: ADMIT Internal Medicine Pulmonary Disease; ATTEND Internal Medicine Nephrology
DX: E11.10 Type 2 diabetes mellitus with ketoacidosis without coma (principal); K31.84 Gastroparesis; I10 Essential (primary) hypertension; E28.2 Polycystic ovarian syndrome; F12.90 Cannabis use, unspecified, uncomplicated; F41.9 Anxiety disorder, unspecified; G43.909 Migraine, unspecified, not intractable, without status migrainosus; F32.A Depression, unspecified; Z79.4 Long term (current) use of insulin; Z88.8 Allergy status to other drugs, medicaments and biological substances; G89.29 Other chronic pain; Z79.899 Other long term (current) drug therapy; E11.43 Type 2 diabetes mellitus with diabetic autonomic (poly)neuropathy

== ENCOUNTER → 2023-10-25 | Outpatient (REF) | payer OTHER ==
[~2023-10-25] MED LIST changes: +METO10TA2 PO; +METO5TAB2 PO
== END ==
LOC: M SFHCPLAZ 10:33
PROVIDERS: ATTEND Student in an Organized Health Care Education/Training Program
DX: R10.11 Right upper quadrant pain (principal); R82.90 Unspecified abnormal findings in urine

== ENCOUNTER → 2023-10-25 | Outpatient (CLI) | payer OTHER ==
[2023-10-25 10:13] LABS: APPEARANCE, URINE CLOUDY (CLEAR); BACTERIA, URINE AUTO NEGATIVE (NEGATIVE); BILIRUBIN, URINE AUTO NEGATIVE (NEGATIVE); BLOOD, URINE BLOOD NEGATIVE (NEGATIVE); COLOR, URINE STRAW (YELLOW); GLUCOSE, URINE (UA) AUTO 3+ mg/dL (NEGATIVE); KETONE, URINE AUTO NEGATIVE (NEGATIVE); LEUKOCYTE ESTERASE, URINE AUTO 3+ (NEGATIVE); MUCUS, URINE SMALL (NEGATIVE); NITRITE, URINE AUTO NEGATIVE (NEGATIVE); PROTEIN, URINE AUTO NEGATIVE (NEGATIVE); RBC, URINE AUTO 84 /HPF (0-3); SPECIFIC GRAVITY URINE AUTO 1.025 (1.002-1.035); SQUAMOUS EPITHELIAL CELL UR AU 10 /HPF (0-6); UROBILINOGEN, URINE AUTO 0.2 mg/dL (0.0-2.0); WBC, URINE AUTO 35 /HPF (0-3)
[2023-10-25 10:41] LABS: ALBUMIN 3.6 G/DL (3.2-5.2); ALKALINE PHOSPHATASE 92 U/L (46-116); ALT/SGPT 19 U/L (7.0-40); AST/SGOT 10 U/L (<34); BILIRUBIN,TOTAL < 0.2 MG/DL (0.3-1.2); BLOOD UREA NITROGEN 18 MG/DL (9-23); CARBON DIOXIDE LEVEL 28 MMOL/L (20-31); CHLORIDE LEVEL 98 MMOL/L (98-107); CREATININE FOR GFR 0.69 MG/DL (0.55-1.30); GLOMERULAR FILTRATION RATE > 60.0 (>58); GLUCOSE, FASTING 565 MG/DL (60-100); POTASSIUM SERUM 5.4 MMOL/L (3.5-5.1); SODIUM LEVEL 131 MMOL/L (136-145); TOTAL PROTEIN 6.8 G/DL (5.7-8.2)
== END ==
LOC: M PLALAB 07:58
PROVIDERS: ATTEND Student in an Organized Health Care Education/Training Program
DX: R10.11 Right upper quadrant pain (principal); R82.90 Unspecified abnormal findings in urine

== ENCOUNTER 2023-11-29 20:35 | Inpatient (IN) | payer OTHER ==
[~2023-11-29] VITALS: Ht 154.9 cm; Wt 63.1 kg
[2023-11-29 21:44] LABS: VENOUS BASE EXCESS -7.1 (-2.0-2.0); VENOUS HCO3 17.1 MMOL/L (23.0-27.0); VENOUS O2 SATURATION 95.9 % (60.0-80.0); VENOUS PARTIAL PRESSURE CO2 30.8 mmHg (38.0-50.0); VENOUS PH 7.362 UNITS (7.330-7.430); VENOUS STANDARD HCO3 18.7 MMOL/L
[2023-11-29 21:47] LABS: BASO # 0.1 10^3/uL (0.0-0.2); BASO % 0.4 % (0.0-1.0); HEMATOCRIT 36.5 % (36.0-47.0); HEMOGLOBIN 12.1 g/dl (12.0-15.5); MEAN CORPUSCULAR HEMOGLOBIN 28.9 pg (27.0-33.0); MEAN CORPUSCULAR HGB CONC 33.2 g/dl (32.0-36.5); MEAN CORPUSCULAR VOLUME 87.3 fl (80.0-96.0); MONO # 0.9 10^3/uL (0.0-0.8); MONO % 6.5 % (2.0-8.0); NEUTROPHILS # 11.4 10^3/uL (1.5-8.5); NEUTROPHILS % 78.8 % (36.0-66.0); PLATELET COUNT, AUTOMATED 407 10^3/uL (150-450); RED BLOOD COUNT 4.18 10^6/uL (4.00-5.40); WHITE BLOOD COUNT 14.4 10^3/uL (4.0-10.0)
[2023-11-29 21:57] LABS: APPEARANCE, URINE HAZY (CLEAR); BACTERIA, URINE AUTO NEGATIVE (NEGATIVE); BILIRUBIN, URINE AUTO NEGATIVE (NEGATIVE); BLOOD, URINE BLOOD 1+ (NEGATIVE); COLOR, URINE YELLOW (YELLOW); GLUCOSE, URINE (UA) AUTO 3+ mg/dL (NEGATIVE); KETONE, URINE AUTO 2+ mg/dL (NEGATIVE); LEUKOCYTE ESTERASE, URINE AUTO 3+ (NEGATIVE); MUCUS, URINE SMALL (NEGATIVE); NITRITE, URINE AUTO NEGATIVE (NEGATIVE); PROTEIN, URINE AUTO NEGATIVE (NEGATIVE); RBC, URINE AUTO 36 /HPF (0-3); SPECIFIC GRAVITY URINE AUTO 1.022 (1.002-1.035); SQUAMOUS EPITHELIAL CELL UR AU 3 /HPF (0-6); UROBILINOGEN, URINE AUTO 0.2 mg/dL (0.0-2.0); WBC, URINE AUTO 109 /HPF (0-3)
[2023-11-29 22:25] LABS: ACETONE/KETONE > 4.50 MMOL/L (0.02-0.27); ALBUMIN 3.9 G/DL (3.2-5.2); ALKALINE PHOSPHATASE 66 U/L (46-116); ALT/SGPT 16 U/L (7.0-40); AST/SGOT 18 U/L (<34); BILIRUBIN,DIRECT 0.1 MG/DL (<0.4); BILIRUBIN,TOTAL 0.4 MG/DL (0.3-1.2); BLOOD UREA NITROGEN 17 MG/DL (9-23); CALCIUM LEVEL 8.8 MG/DL (8.5-10.1); CARBON DIOXIDE LEVEL 18 MMOL/L (20-31); CHLORIDE LEVEL 98 MMOL/L (98-107); GLOMERULAR FILTRATION RATE > 60.0 (>58); GLUCOSE, FASTING 340 MG/DL (60-100); LIPASE 40 U/L (12-53); MAGNESIUM LEVEL 1.8 MG/DL (1.8-2.4); POTASSIUM SERUM 5.3 MMOL/L (3.5-5.1); SODIUM LEVEL 131 MMOL/L (136-145); TOTAL PROTEIN 6.6 G/DL (5.7-8.2)
[2023-11-29] MEDS ORDERED: ISOVUE-370 76% 100ML VIAL As Ordered ONE (22:28)
[2023-11-29 22:32] LABS: OSMOLALITY SERUM 301 MOSM/KG (275-295)
[2023-11-29 22:37] LABS: HEMOGLOBIN A1c 10.2 % (4.0-6.0)
[2023-11-29] MEDS: NS 500 ML IV ONE (22:50)
[2023-11-29] MEDS: MORPHINE 2 MG/ML 1ML VIAL IV ONE (22:52)
[2023-11-29] MEDS: NS 1,000 ML IV SCH (22:53)
[2023-11-30] VITALS (7 sets, daily range): BP systolic 118–157; BP diastolic 75–94; TEMP 98.1–98.6; O2SAT 96–98
[2023-11-30] MEDS: HumuLIN R (REGULAR) INSULIN (NovoLIN R) **100U/ML** PER UNIT IV ONE (00:16)
[2023-11-30] MEDS: cefTRIAXone SOD 1 GM in D5W MINI-BAG PLUS 50 ML IV ONE (00:16)
[2023-11-30] MEDS ORDERED: ACETAMINOPHEN TAB 650MG DOSE (2X325MG) PO PRN (00:50)
[2023-11-30] MEDS ORDERED: GLUCAGON INJ 1MG VIAL SC PRN (00:50)
[2023-11-30] MEDS ORDERED: GLUCOSE 4 GM CHEW PO PRN (00:50)
[2023-11-30] MEDS ORDERED: DEXTROSE 50% 50ML SYRINGE IV PRN (00:50)
[2023-11-30] MEDS ORDERED: ERTAPENEM SODIUM 1 GM in NS MINI-BAG PLUS 50 ML IV ONE (00:50)
[2023-11-30] MEDS ORDERED: METO10TA2 PO (01:32)
[2023-11-30] MEDS ORDERED: DEXT4TAB9 PO (01:32)
[2023-11-30] MEDS ORDERED: ONDA4TAB6 PO (01:32)
[2023-11-30] MEDS ORDERED: BASA100I SC (01:32)
[2023-11-30] MEDS ORDERED: HOME MED LIST COMPLETE! XX SCH (01:35)
[2023-11-30] MEDS: INSULIN LISPRO (NovoLOG) PER UNIT SC ONE (02:54)
[2023-11-30] MEDS: MEROPENEM INJ 1 GM in IV 1 EA IV SCH (02:54)
[2023-11-30] MEDS ORDERED: ALBUTEROL 90 MCG/ACT 8GM HFA INHALER INH PRN (02:55)
[2023-11-30] MEDS ORDERED: SUMAtriptan SUCCINATE 25 MG TAB PO PRN (02:55)
[2023-11-30] MEDS: NORCO, ANEXSIA 5/325MG TABLET (HYDROcodone/ACETAMINOPHEN) PO PRN (03:15)
[2023-11-30] MEDS: ONDANSETRON 4MG ORAL DISINTEGRATING TAB PO PRN (03:15)
[2023-11-30 06:48] LABS: HEMATOCRIT 36.2 % (36.0-47.0); MEAN CORPUSCULAR HEMOGLOBIN 29.1 pg (27.0-33.0); MEAN CORPUSCULAR HGB CONC 33.1 g/dl (32.0-36.5); MEAN CORPUSCULAR VOLUME 87.7 fl (80.0-96.0); PLATELET COUNT, AUTOMATED 392 10^3/uL (150-450); RED BLOOD COUNT 4.13 10^6/uL (4.00-5.40); WHITE BLOOD COUNT 17.3 10^3/uL (4.0-10.0)
[2023-11-30 07:07] LABS: ALBUMIN 3.9 G/DL (3.2-5.2); ALKALINE PHOSPHATASE 68 U/L (46-116); ALT/SGPT 12 U/L (7.0-40); AST/SGOT < 8 U/L (<34); BILIRUBIN,TOTAL 0.4 MG/DL (0.3-1.2); BLOOD UREA NITROGEN 12 MG/DL (9-23); CALCIUM LEVEL 8.6 MG/DL (8.5-10.1); CARBON DIOXIDE LEVEL 19 MMOL/L (20-31); CHLORIDE LEVEL 100 MMOL/L (98-107); CREATININE FOR GFR 0.59 MG/DL (0.55-1.30); GLOMERULAR FILTRATION RATE > 60.0 (>58); GLUCOSE, FASTING 209 MG/DL (60-100); POTASSIUM SERUM 4.4 MMOL/L (3.5-5.1); SODIUM LEVEL 132 MMOL/L (136-145); TOTAL PROTEIN 6.5 G/DL (5.7-8.2)
[2023-11-30] MEDS: MORPHINE 2 MG/ML 1ML VIAL IV ONE (08:40)
[2023-11-30] MEDS: LEVEMIR (INSULIN DETEMIR) 1 UNITS/0.01ML SC SCH (08:46)
[2023-11-30] MEDS: INSULIN LISPRO (NovoLOG) PER UNIT SC SCH ×2 (08:46→21:00)
[2023-11-30] MEDS: NS 1,000 ML IV SCH (09:10)
[2023-11-30] MEDS: ENOXAPARIN 40MG/0.4ML SYRINGE (J1650 PER 10MG) SC SCH (09:10)
[2023-11-30] MEDS: PARoxetine 20MG TABLET PO SCH (09:10)
[2023-11-30] MEDS: ONDANSETRON 4MG 2ML VIAL IV PRN (09:10)
[2023-11-30] MEDS: METOCLOPRAMIDE 10MG TAB PO SCH (09:11)
[2023-11-30] MEDS: LIDOCAINE 5% (LIDODERM) PATCH TOP SCH (09:11)
[2023-11-30] MEDS: ALPRAZolam 0.5 MG TAB PO PRN (10:23)
[2023-11-30 12:41] LABS: BLOOD UREA NITROGEN 11 MG/DL (9-23); CALCIUM LEVEL 8.1 MG/DL (8.5-10.1); CARBON DIOXIDE LEVEL 19 MMOL/L (20-31); CHLORIDE LEVEL 101 MMOL/L (98-107); CREATININE FOR GFR 0.57 MG/DL (0.55-1.30); GLOMERULAR FILTRATION RATE > 60.0 (>58); GLUCOSE, FASTING 184 MG/DL (60-100); POTASSIUM SERUM 3.9 MMOL/L (3.5-5.1); SODIUM LEVEL 132 MMOL/L (136-145)
[2023-11-30] MEDS: MORPHINE 2 MG/ML 1ML VIAL IV PRN (13:19)
[2023-12-01] VITALS: BP 129/84; TEMP 98.1; O2SAT 97
[2023-12-01] MEDS: KETOROLAC 30 MG/ML 1ML VIAL IV PRN ×2 (00:52→10:05)
[2023-12-01 05:11] VITALS: BP 138/86; TEMP 98.1; O2SAT 99
[2023-12-01 06:38] LABS: HEMATOCRIT 36.8 % (36.0-47.0); HEMOGLOBIN 12.5 g/dl (12.0-15.5); MEAN CORPUSCULAR HEMOGLOBIN 29.4 pg (27.0-33.0); MEAN CORPUSCULAR VOLUME 86.6 fl (80.0-96.0); PLATELET COUNT, AUTOMATED 356 10^3/uL (150-450); RED BLOOD COUNT 4.25 10^6/uL (4.00-5.40); WHITE BLOOD COUNT 11.9 10^3/uL (4.0-10.0)
[2023-12-01 07:05] LABS: BLOOD UREA NITROGEN 7 MG/DL (9-23); CALCIUM LEVEL 8.3 MG/DL (8.5-10.1); CARBON DIOXIDE LEVEL 24 MMOL/L (20-31); CHLORIDE LEVEL 102 MMOL/L (98-107); CREATININE FOR GFR 0.47 MG/DL (0.55-1.30); GLOMERULAR FILTRATION RATE > 60.0 (>58); GLUCOSE, FASTING 192 MG/DL (60-100); MAGNESIUM LEVEL 1.7 MG/DL (1.8-2.4); POTASSIUM SERUM 3.7 MMOL/L (3.5-5.1); SODIUM LEVEL 136 MMOL/L (136-145)
[2023-12-01] MEDS: MAG SULF 1GM/100ML (MAG RUN) 1 GM in IV 1 EA IV ONE (09:31)
[2023-12-01] MEDS: NORCO, ANEXSIA 5/325MG TABLET (HYDROcodone/ACETAMINOPHEN) PO PRN (11:47)
[2023-12-01 14:40] VITALS: BP 121/79; TEMP 97.7; O2SAT 96
[2023-12-01 22:00] VITALS: BP 147/95; TEMP 97.7; O2SAT 99
[2023-12-02 01:55] VITALS: BP 147/85; TEMP 97.9; O2SAT 100
[2023-12-02 06:00] VITALS: BP 153/97; TEMP 97.7; O2SAT 98
[2023-12-02 07:40] LABS: HEMOGLOBIN 13.7 g/dl (12.0-15.5); MEAN CORPUSCULAR HEMOGLOBIN 28.9 pg (27.0-33.0); MEAN CORPUSCULAR HGB CONC 33.4 g/dl (32.0-36.5); MEAN CORPUSCULAR VOLUME 86.5 fl (80.0-96.0); PLATELET COUNT, AUTOMATED 356 10^3/uL (150-450); RED BLOOD COUNT 4.74 10^6/uL (4.00-5.40); WHITE BLOOD COUNT 8.8 10^3/uL (4.0-10.0)
[2023-12-02 08:20] LABS: BLOOD UREA NITROGEN 9 MG/DL (9-23); CARBON DIOXIDE LEVEL 27 MMOL/L (20-31); CHLORIDE LEVEL 98 MMOL/L (98-107); CREATININE FOR GFR 0.44 MG/DL (0.55-1.30); GLOMERULAR FILTRATION RATE > 60.0 (>58); GLUCOSE, FASTING 250 MG/DL (60-100); MAGNESIUM LEVEL 1.8 MG/DL (1.8-2.4); POTASSIUM SERUM 3.7 MMOL/L (3.5-5.1); SODIUM LEVEL 132 MMOL/L (136-145)
[2023-12-02 08:24] VITALS: BP 165/90
[2023-12-02] MEDS: LOSARTAN 25 MG TAB PO SCH (08:24)
[2023-12-02 10:00] VITALS: BP 132/82; TEMP 97.9; O2SAT 97
[2023-12-02] MEDS: HumuLIN R (REGULAR) INSULIN (NovoLIN R) **100U/ML** PER UNIT IV STA (10:54)
[2023-12-02] MEDS: INSULIN LISPRO (NovoLOG) PER UNIT SC SCH (12:06)
[2023-12-02] MEDS ORDERED: BACT800T5 PO (14:00)
== END 2023-12-02 14:44 | disposition home or self-care (01) | DRG 720 ==
LOC: M ED 20:35 → M ED INP 11-30 00:50 → M MSPAV 11-30 03:04
PROVIDERS: ADMIT Internal Medicine; ATTEND Student in an Organized Health Care Education/Training Program
DX: A41.9 Sepsis, unspecified organism (principal); E87.20 Acidosis, unspecified; K31.84 Gastroparesis; E11.65 Type 2 diabetes mellitus with hyperglycemia; E87.1 Hypo-osmolality and hyponatremia; E11.43 Type 2 diabetes mellitus with diabetic autonomic (poly)neuropathy; N20.0 Calculus of kidney; F32.A Depression, unspecified; F41.9 Anxiety disorder, unspecified; G43.909 Migraine, unspecified, not intractable, without status migrainosus; M54.50 Low back pain, unspecified; N10 Acute pyelonephritis; M25.551 Pain in right hip; M25.552 Pain in left hip; F17.210 Nicotine dependence, cigarettes, uncomplicated; I10 Essential (primary) hypertension; Z79.4 Long term (current) use of insulin; Z79.899 Other long term (current) drug therapy; Z88.8 Allergy status to other drugs, medicaments and biological substances

== ENCOUNTER 2023-12-08 11:52 | Inpatient (IN) | payer OTHER ==
[~2023-12-08] VITALS: Ht 154.9 cm; Wt 69.7 kg
[2023-12-08] VITALS (7 sets, daily range): BP systolic 110–137; BP diastolic 59–82; TEMP 98.9–99.3; O2SAT 95–99
[~2023-12-08 11:52] MED LIST changes: +BACT800T5 PO; +DEXT4TAB9 PO
[2023-12-08 12:46] LABS: VENOUS BASE EXCESS -8.6 (-2.0-2.0); VENOUS HCO3 14.3 MMOL/L (23.0-27.0); VENOUS O2 SATURATION 84.8 % (60.0-80.0); VENOUS PARTIAL PRESSURE CO2 23.9 mmHg (38.0-50.0); VENOUS PARTIAL PRESSURE O2 46.6 mmHg (30.0-50.0); VENOUS PH 7.394 UNITS (7.330-7.430); VENOUS STANDARD HCO3 17.4 MMOL/L
[2023-12-08 12:58] LABS: BASO # 0.1 10^3/uL (0.0-0.2); BASO % 0.5 % (0.0-1.0); EOS % 0.1 % (0.0-3.0); HEMATOCRIT 39.6 % (36.0-47.0); HEMOGLOBIN 13.3 g/dl (12.0-15.5); LYMPH # 1.1 10^3/uL (1.5-5.0); LYMPH % 5.9 % (24.0-44.0); MEAN CORPUSCULAR HEMOGLOBIN 29.6 pg (27.0-33.0); MEAN CORPUSCULAR HGB CONC 33.6 g/dl (32.0-36.5); MONO # 0.2 10^3/uL (0.0-0.8); MONO % 1.2 % (2.0-8.0); NEUTROPHILS # 16.7 10^3/uL (1.5-8.5); NEUTROPHILS % 91.9 % (36.0-66.0); PLATELET COUNT, AUTOMATED 388 10^3/uL (150-450); WHITE BLOOD COUNT 18.1 10^3/uL (4.0-10.0)
[2023-12-08 13:15] LABS: HEMOGLOBIN A1c 9.9 % (4.0-6.0); OSMOLALITY SERUM 318 MOSM/KG (275-295)
[2023-12-08 13:16] LABS: LIPASE 35 U/L (12-53)
[2023-12-08 13:18] LABS: ALBUMIN 4.2 G/DL (3.2-5.2); ALKALINE PHOSPHATASE 78 U/L (46-116); ALT/SGPT 17 U/L (7.0-40); AST/SGOT 14 U/L (<34); BILIRUBIN,DIRECT 0.2 MG/DL (<0.4); BILIRUBIN,TOTAL 0.5 MG/DL (0.3-1.2); TOTAL PROTEIN 6.9 G/DL (5.7-8.2)
[2023-12-08 13:22] LABS: ACETONE/KETONE > 4.50 MMOL/L (0.02-0.27)
[2023-12-08] MEDS: NS 1,000 ML IV ONE ×2 (13:25)
[2023-12-08 13:37] LABS: BLOOD UREA NITROGEN 18 MG/DL (9-23); CALCIUM LEVEL 9.4 MG/DL (8.5-10.1); CARBON DIOXIDE LEVEL 12 MMOL/L (20-31); CHLORIDE LEVEL 96 MMOL/L (98-107); CREATININE FOR GFR 0.61 MG/DL (0.55-1.30); GLOMERULAR FILTRATION RATE > 60.0 (>58); GLUCOSE, FASTING 547 MG/DL (60-100); POTASSIUM SERUM 5.5 MMOL/L (3.5-5.1); SODIUM LEVEL 130 MMOL/L (136-145)
[2023-12-08] MEDS ORDERED: INSULIN IV RATE CHANGE DOCUMENTATION ML/HR XX SCH (13:50)
[2023-12-08] MEDS: KETOROLAC 30 MG/ML 1ML VIAL IV ONE (13:59)
[2023-12-08] MEDS: INSULIN REGULAR IN 0.9 % NACL 100 UNIT in IV 1 EA IV SCH ×2 (14:01→15:45)
[2023-12-08] MEDS ORDERED: NS 1,000 ML IV SCH (14:30)
[2023-12-08] MEDS ORDERED: ACETAMINOPHEN TAB 650MG DOSE (2X325MG) PO PRN (14:45)
[2023-12-08] MEDS: HumuLIN R (REGULAR) INSULIN (NovoLIN R) **100U/ML** PER UNIT IV ONE (15:07)
[2023-12-08] MEDS: KCL 20MEQ IN 0.45NS 1000ML 1,000 ML IV SCH (15:54)
[2023-12-08 16:26] LABS: VENOUS BASE EXCESS -8.8 (-2.0-2.0); VENOUS HCO3 15.7 MMOL/L (23.0-27.0); VENOUS O2 SATURATION 95.9 % (60.0-80.0); VENOUS PARTIAL PRESSURE O2 79.9 mmHg (30.0-50.0); VENOUS PH 7.337 UNITS (7.330-7.430); VENOUS STANDARD HCO3 17.4 MMOL/L; VENOUS TOTAL CO2 16.6 MMOL/L (24.0-28.0)
[2023-12-08] MEDS: KCL 20MEQ IN D5/0.45NS 1000ML 1,000 ML IV SCH (17:34)
[2023-12-08] MEDS: INSULIN IV RATE CHANGE DOCUMENTATION ML/HR XX SCH (17:36)
[2023-12-08 17:56] LABS: BLOOD UREA NITROGEN 12 MG/DL (9-23); CALCIUM LEVEL 8.3 MG/DL (8.5-10.1); CARBON DIOXIDE LEVEL 15 MMOL/L (20-31); CHLORIDE LEVEL 104 MMOL/L (98-107); CREATININE FOR GFR 0.58 MG/DL (0.55-1.30); GLOMERULAR FILTRATION RATE > 60.0 (>58); GLUCOSE, FASTING 294 MG/DL (60-100); POTASSIUM SERUM 4.2 MMOL/L (3.5-5.1); SODIUM LEVEL 134 MMOL/L (136-145)
[2023-12-08] MEDS: NORCO, ANEXSIA 5/325MG TABLET (HYDROcodone/ACETAMINOPHEN) PO PRN (18:07)
[2023-12-08] MEDS ORDERED: LEVEMIR (INSULIN DETEMIR) 1 UNITS/0.01ML SC SCH (18:15)
[2023-12-08] MEDS ORDERED: DEXTROSE 50% 50ML SYRINGE IV PRN (18:15)
[2023-12-08] MEDS ORDERED: GLUCAGON INJ 1MG VIAL SC PRN (18:15)
[2023-12-08] MEDS ORDERED: GLUCOSE 4 GM CHEW PO PRN (18:15)
[2023-12-08] MEDS: LEVEMIR (INSULIN DETEMIR) 1 UNITS/0.01ML SC SCH (18:28)
[2023-12-08] MEDS: INSULIN LISPRO (NovoLOG) PER UNIT SC SCH (18:38)
[2023-12-08 19:35] LABS: BLOOD UREA NITROGEN 12 MG/DL (9-23); CALCIUM LEVEL 8.3 MG/DL (8.5-10.1); CARBON DIOXIDE LEVEL 20 MMOL/L (20-31); CHLORIDE LEVEL 101 MMOL/L (98-107); CREATININE FOR GFR 0.51 MG/DL (0.55-1.30); GLOMERULAR FILTRATION RATE > 60.0 (>58); GLUCOSE, FASTING 129 MG/DL (60-100); POTASSIUM SERUM 3.7 MMOL/L (3.5-5.1); SODIUM LEVEL 132 MMOL/L (136-145)
[2023-12-08] MEDS: ALPRAZolam 0.25 MG TAB PO PRN (19:46)
[2023-12-08] MEDS: ACETAMINOPHEN *IV* 1,000 MG in IV 1 EA IV ONE (20:31)
[2023-12-08] MEDS: LIDOCAINE 5% (LIDODERM) PATCH TD SCH (20:31)
[2023-12-08] MEDS: POTASSIUM CHLORIDE 10MEQ SR TABLET PO ONE (21:07)
[2023-12-08 22:50] LABS: BLOOD UREA NITROGEN 14 MG/DL (9-23); CALCIUM LEVEL 8.7 MG/DL (8.5-10.1); CARBON DIOXIDE LEVEL 24 MMOL/L (20-31); CHLORIDE LEVEL 102 MMOL/L (98-107); CREATININE FOR GFR 0.59 MG/DL (0.55-1.30); GLOMERULAR FILTRATION RATE > 60.0 (>58); GLUCOSE, FASTING 135 MG/DL (60-100); POTASSIUM SERUM 3.9 MMOL/L (3.5-5.1); SODIUM LEVEL 134 MMOL/L (136-145)
[2023-12-09] VITALS (9 sets, daily range): BP systolic 120–159; BP diastolic 62–91; TEMP 97.1–99; O2SAT 95–99
[2023-12-09 05:22] LABS: BLOOD UREA NITROGEN 15 MG/DL (9-23); CALCIUM LEVEL 8.5 MG/DL (8.5-10.1); CARBON DIOXIDE LEVEL 20 MMOL/L (20-31); CHLORIDE LEVEL 103 MMOL/L (98-107); CREATININE FOR GFR 0.53 MG/DL (0.55-1.30); GLOMERULAR FILTRATION RATE > 60.0 (>58); GLUCOSE, FASTING 208 MG/DL (60-100); POTASSIUM SERUM 4.6 MMOL/L (3.5-5.1); SODIUM LEVEL 133 MMOL/L (136-145)
[2023-12-09] MEDS: LOSARTAN 25 MG TAB PO SCH (08:28)
[2023-12-09 08:49] LABS: BASO # 0.1 10^3/uL (0.0-0.2); BASO % 0.7 % (0.0-1.0); EOS # 0.1 10^3/uL (0.0-0.5); EOS % 1.2 % (0.0-3.0); HEMATOCRIT 36.2 % (36.0-47.0); HEMOGLOBIN 11.7 g/dl (12.0-15.5); LYMPH # 3.5 10^3/uL (1.5-5.0); LYMPH % 33.2 % (24.0-44.0); MEAN CORPUSCULAR HEMOGLOBIN 28.8 pg (27.0-33.0); MEAN CORPUSCULAR HGB CONC 32.3 g/dl (32.0-36.5); MEAN CORPUSCULAR VOLUME 89.2 fl (80.0-96.0); MONO # 0.5 10^3/uL (0.0-0.8); NEUTROPHILS # 6.2 10^3/uL (1.5-8.5); NEUTROPHILS % 59.6 % (36.0-66.0); PLATELET COUNT, AUTOMATED 373 10^3/uL (150-450); RED BLOOD COUNT 4.06 10^6/uL (4.00-5.40); WHITE BLOOD COUNT 10.4 10^3/uL (4.0-10.0)
[2023-12-09] MEDS ORDERED: INSU100I24 SQ (09:08)
[2023-12-09] MEDS ORDERED: HOME MED LIST COMPLETE! XX SCH (09:20)
[2023-12-09] MEDS: PARoxetine 20MG TABLET PO SCH (11:37)
[2023-12-09] MEDS: METOCLOPRAMIDE 10MG TAB PO SCH (11:38)
[2023-12-09] MEDS: ENOXAPARIN 40MG/0.4ML SYRINGE (J1650 PER 10MG) SC SCH (11:38)
[2023-12-09 13:58] LABS: BLOOD UREA NITROGEN 11 MG/DL (9-23); CALCIUM LEVEL 9.2 MG/DL (8.5-10.1); CARBON DIOXIDE LEVEL 24 MMOL/L (20-31); CHLORIDE LEVEL 100 MMOL/L (98-107); CREATININE FOR GFR 0.49 MG/DL (0.55-1.30); GLOMERULAR FILTRATION RATE > 60.0 (>58); GLUCOSE, FASTING 180 MG/DL (60-100); POTASSIUM SERUM 4.1 MMOL/L (3.5-5.1); SODIUM LEVEL 133 MMOL/L (136-145)
[2023-12-09] MEDS: LEVEMIR (INSULIN DETEMIR) 1 UNITS/0.01ML SC SCH (19:46)
[2023-12-10 06:00] VITALS: BP 162/98; TEMP 97.7; O2SAT 99
[2023-12-10 06:06] LABS: BASO # 0.1 10^3/uL (0.0-0.2); BASO % 0.9 % (0.0-1.0); EOS # 0.1 10^3/uL (0.0-0.5); EOS % 1.5 % (0.0-3.0); HEMATOCRIT 37.9 % (36.0-47.0); HEMOGLOBIN 12.6 g/dl (12.0-15.5); LYMPH # 2.6 10^3/uL (1.5-5.0); LYMPH % 32.3 % (24.0-44.0); MEAN CORPUSCULAR HEMOGLOBIN 28.6 pg (27.0-33.0); MEAN CORPUSCULAR HGB CONC 33.2 g/dl (32.0-36.5); MEAN CORPUSCULAR VOLUME 85.9 fl (80.0-96.0); MONO # 0.4 10^3/uL (0.0-0.8); MONO % 5.4 % (2.0-8.0); NEUTROPHILS # 4.9 10^3/uL (1.5-8.5); NEUTROPHILS % 59.7 % (36.0-66.0); PLATELET COUNT, AUTOMATED 377 10^3/uL (150-450); RED BLOOD COUNT 4.41 10^6/uL (4.00-5.40); WHITE BLOOD COUNT 8.1 10^3/uL (4.0-10.0)
[2023-12-10 06:38] LABS: ALBUMIN 3.6 G/DL (3.2-5.2); ALKALINE PHOSPHATASE 63 U/L (46-116); ALT/SGPT < 9 U/L (7.0-40); AST/SGOT < 8 U/L (<34); BILIRUBIN,TOTAL 0.3 MG/DL (0.3-1.2); BLOOD UREA NITROGEN 9 MG/DL (9-23); CALCIUM LEVEL 9.2 MG/DL (8.5-10.1); CARBON DIOXIDE LEVEL 26 MMOL/L (20-31); CHLORIDE LEVEL 103 MMOL/L (98-107); CREATININE FOR GFR 0.47 MG/DL (0.55-1.30); GLOMERULAR FILTRATION RATE > 60.0 (>58); GLUCOSE, FASTING 131 MG/DL (60-100); MAGNESIUM LEVEL 1.8 MG/DL (1.8-2.4); POTASSIUM SERUM 3.9 MMOL/L (3.5-5.1); SODIUM LEVEL 137 MMOL/L (136-145); TOTAL PROTEIN 6.3 G/DL (5.7-8.2)
[2023-12-10 09:12] VITALS: BP 162/96
[2023-12-10] MEDS ORDERED: TRAN1DIS4 TOP (09:49)
== END 2023-12-10 11:31 | disposition home or self-care (01) | DRG 48 ==
LOC: M ED 11:52 → M ED INP 14:12 → M ICU 15:29 → M MSPAV 12-09 11:23
PROVIDERS: ADMIT Internal Medicine Pulmonary Disease; ATTEND Student in an Organized Health Care Education/Training Program
DX: E11.43 Type 2 diabetes mellitus with diabetic autonomic (poly)neuropathy (principal); E87.1 Hypo-osmolality and hyponatremia; R56.9 Unspecified convulsions; E28.2 Polycystic ovarian syndrome; D72.829 Elevated white blood cell count, unspecified; I10 Essential (primary) hypertension; F41.9 Anxiety disorder, unspecified; M54.50 Low back pain, unspecified; N39.0 Urinary tract infection, site not specified; G43.909 Migraine, unspecified, not intractable, without status migrainosus; Z79.4 Long term (current) use of insulin; F12.90 Cannabis use, unspecified, uncomplicated; Z79.899 Other long term (current) drug therapy; Z88.8 Allergy status to other drugs, medicaments and biological substances; F32.A Depression, unspecified; Z87.891 Personal history of nicotine dependence; Z91.119 Patient's noncompliance with dietary regimen due to unspecified reason; G89.29 Other chronic pain; E11.10 Type 2 diabetes mellitus with ketoacidosis without coma

== ENCOUNTER 2023-12-29 13:53 | Inpatient (IN) | payer MEDICAID, OTHER ==
[~2023-12-29] VITALS: Ht 157.5 cm; Wt 66.0 kg
[~2023-12-29 13:53] MED LIST changes: +INSU100I24 SC; +ONDA-282 PO; -ONDA4TAB6 PO; +TRAN1DIS4 TOP
[2023-12-29 15:18] LABS: VENOUS BASE EXCESS 4.3 (-2.0-2.0); VENOUS HCO3 28.2 MMOL/L (23.0-27.0); VENOUS O2 SATURATION 49.6 % (60.0-80.0); VENOUS PARTIAL PRESSURE CO2 39.7 mmHg (38.0-50.0); VENOUS PARTIAL PRESSURE O2 24.6 mmHg (30.0-50.0); VENOUS PH 7.469 UNITS (7.330-7.430); VENOUS STANDARD HCO3 26.9 MMOL/L; VENOUS TOTAL CO2 29.4 MMOL/L (24.0-28.0)
[2023-12-29 15:24] LABS: BASO # 0.1 10^3/uL (0.0-0.2); BASO % 0.9 % (0.0-1.0); EOS # 0.1 10^3/uL (0.0-0.5); EOS % 0.9 % (0.0-3.0); HEMATOCRIT 44.2 % (36.0-47.0); HEMOGLOBIN 15.2 g/dl (12.0-15.5); LYMPH # 1.9 10^3/uL (1.5-5.0); LYMPH % 18.2 % (24.0-44.0); MEAN CORPUSCULAR HEMOGLOBIN 29.2 pg (27.0-33.0); MEAN CORPUSCULAR HGB CONC 34.4 g/dl (32.0-36.5); MONO # 0.4 10^3/uL (0.0-0.8); MONO % 3.7 % (2.0-8.0); NEUTROPHILS % 76.1 % (36.0-66.0); PLATELET COUNT, AUTOMATED 443 10^3/uL (150-450); WHITE BLOOD COUNT 10.5 10^3/uL (4.0-10.0)
[2023-12-29] MEDS: ONDANSETRON 4MG 2ML VIAL IV ONE (15:34)
[2023-12-29] MEDS: NS 1,000 ML IV ONE ×3 (15:34→20:09)
[2023-12-29] MEDS: MORPHINE 4 MG/ML 1ML VIAL IV ONE (15:34)
[2023-12-29] MEDS ORDERED: ISOVUE-370 76% 100ML VIAL As Ordered ONE (15:37)
[2023-12-29 15:42] LABS: HEMOGLOBIN A1c 9.5 % (4.0-6.0)
[2023-12-29 15:49] LABS: ETHYL ALCOHOL (ETHANOL) < 0.003 % (0.000-0.010)
[2023-12-29 15:52] LABS: ACETONE/KETONE 0.51 MMOL/L (0.02-0.27)
[2023-12-29 15:53] LABS: ALBUMIN 4.9 G/DL (3.2-5.2); ALKALINE PHOSPHATASE 95 U/L (46-116); ALT/SGPT 17 U/L (7.0-40); AST/SGOT 19 U/L (<34); BILIRUBIN,DIRECT 0.1 MG/DL (<0.4); BILIRUBIN,TOTAL 0.5 MG/DL (0.3-1.2); BLOOD UREA NITROGEN 21 MG/DL (9-23); CALCIUM LEVEL 10.6 MG/DL (8.5-10.1); CARBON DIOXIDE LEVEL 27 MMOL/L (20-31); CHLORIDE LEVEL 98 MMOL/L (98-107); CK-MB VALUE MASS < 1.0 NG/ML (<3.6); CPK CREATINE PHOSPHOKINASE 82 U/L (34-145); GLOMERULAR FILTRATION RATE > 60.0 (>58); GLUCOSE, FASTING 207 MG/DL (60-100); LIPASE 47 U/L (12-53); MAGNESIUM LEVEL 1.6 MG/DL (1.8-2.4); MB/CK RELATIVE INDEX 1.21 (< OR =4); PHOSPHORUS LEVEL 1.2 MG/DL (2.5-4.9); POTASSIUM SERUM 4.6 MMOL/L (3.5-5.1); SODIUM LEVEL 137 MMOL/L (136-145); TOTAL PROTEIN 8.3 G/DL (5.7-8.2)
[2023-12-29 16:29] LABS: OSMOLALITY SERUM 295 MOSM/KG (275-295)
[2023-12-29] MEDS: KETOROLAC 30 MG/ML 1ML VIAL IV ONE (16:59)
[2023-12-29] MEDS: MAG SULF 1GM/100ML (MAG RUN) 1 GM in IV 1 EA IV ONE (17:01)
[2023-12-29 18:33] LABS: AMPHETAMINES LEVEL URINE NEGATIVE (NEGATIVE)
[2023-12-29 18:34] LABS: BARBITURATES URINE NEGATIVE (NEGATIVE); COCAINE METABOLITE URINE NEGATIVE (NEGATIVE); METHADONE URINE NEGATIVE (NEGATIVE); PHENCYCLIDINE URINE NEGATIVE (NEGATIVE)
[2023-12-29 18:37] LABS: BENZODIAZEPINES URINE POSITIVE (NEGATIVE); CANNABINOIDS URINE POSITIVE (NEGATIVE); OPIATES URINE POSITIVE (NEGATIVE)
[2023-12-29] MEDS: cefTRIAXone SOD 1 GM in D5W MINI-BAG PLUS 50 ML IV ONE (20:10)
[2023-12-29] MEDS ORDERED: DEXTROSE 50% 50ML SYRINGE IV PRN (20:45)
[2023-12-29] MEDS ORDERED: MOM 30ML SUSPENSION UDC PO PRN (20:45)
[2023-12-29] MEDS ORDERED: GLUCOSE 4 GM CHEW PO PRN (20:45)
[2023-12-29] MEDS ORDERED: GLUCAGON INJ 1MG VIAL SC PRN (20:45)
[2023-12-29] MEDS ORDERED: TRAN1DIS4 TOP (21:07)
[2023-12-29] MEDS ORDERED: HOME MED LIST COMPLETE! XX SCH (21:10)
[2023-12-29] MEDS: INSULIN LISPRO (NovoLOG) PER UNIT SC SCH (22:05)
[2023-12-29] MEDS: MEROPENEM INJ 1 GM in IV 1 EA IV SCH (22:05)
[2023-12-29] MEDS: NS 1,000 ML IV SCH (22:06)
[2023-12-29] MEDS: METOCLOPRAMIDE 10MG TAB PO SCH (22:45)
[2023-12-30] MEDS: PROMETHAZINE 25MG/ML 1ML VIAL IV PRN (04:06)
[2023-12-30] MEDS: ACETAMINOPHEN TAB 650MG DOSE (2X325MG) PO PRN (04:06)
[2023-12-30 07:01] LABS: HEMATOCRIT 37.5 % (36.0-47.0); MEAN CORPUSCULAR HEMOGLOBIN 29.2 pg (27.0-33.0); MEAN CORPUSCULAR HGB CONC 33.6 g/dl (32.0-36.5); PLATELET COUNT, AUTOMATED 344 10^3/uL (150-450); RED BLOOD COUNT 4.31 10^6/uL (4.00-5.40); WHITE BLOOD COUNT 8.6 10^3/uL (4.0-10.0)
[2023-12-30 07:04] LABS: HEMOGLOBIN 12.6 g/dl (12.0-15.5)
[2023-12-30 07:25] LABS: ALBUMIN 3.8 G/DL (3.2-5.2); ALKALINE PHOSPHATASE 79 U/L (46-116); ALT/SGPT 10 U/L (7.0-40); AST/SGOT < 8 U/L (<34); BILIRUBIN,TOTAL 0.5 MG/DL (0.3-1.2); BLOOD UREA NITROGEN 11 MG/DL (9-23); CALCIUM LEVEL 8.5 MG/DL (8.5-10.1); CARBON DIOXIDE LEVEL 21 MMOL/L (20-31); CHLORIDE LEVEL 102 MMOL/L (98-107); CREATININE FOR GFR 0.58 MG/DL (0.55-1.30); GLOMERULAR FILTRATION RATE > 60.0 (>58); GLUCOSE, FASTING 301 MG/DL (60-100); SODIUM LEVEL 136 MMOL/L (136-145); TOTAL PROTEIN 6.4 G/DL (5.7-8.2)
[2023-12-30] MEDS ORDERED: MORPHINE 2 MG/ML 1ML VIAL IV PRN (07:55)
[2023-12-30] MEDS: INSULIN LISPRO (NovoLOG) PER UNIT SC SCH (08:34)
[2023-12-30] MEDS: LEVEMIR (INSULIN DETEMIR) 1 UNITS/0.01ML SC SCH (08:34)
[2023-12-30 08:35] VITALS: BP 169/95
[2023-12-30] MEDS: PARoxetine 20MG TABLET PO SCH (08:35)
[2023-12-30] MEDS: MAG SULF 1GM/100ML (MAG RUN) 1 GM in IV 1 EA IV SCH (08:35)
[2023-12-30] MEDS: LOSARTAN 25 MG TAB PO SCH (08:35)
[2023-12-30] MEDS: HALOPERIDOL LACTATE 5MG/ML VIAL IV ONE (08:35)
[2023-12-30] MEDS: ENOXAPARIN 40MG/0.4ML SYRINGE (J1650 PER 10MG) SC SCH (08:36)
[2023-12-30 09:34] LABS: PROCALCITONIN <0.04 ng/ml
[2023-12-30] MEDS: PANTOPRAZOLE 40MG VIAL IV SCH (10:07)
[2023-12-30] MEDS: SODIUM PHOSPHATE INJ 20 MMOL in D5W 250 ML IV ONE (11:20)
[2023-12-30 13:00] VITALS: BP 153/86
[2023-12-30 13:15] VITALS: O2SAT 97
[2023-12-30] MEDS: METOCLOPRAMIDE INJ 10MG/2ML VIAL IV SCH (13:48)
[2023-12-30] MEDS: ERTAPENEM SODIUM 1 GM in NS MINI-BAG PLUS 50 ML IV SCH (13:49)
[2023-12-30 14:07] VITALS: TEMP 98.6
[2024-01-01] MEDS ORDERED: COLA100C5 PO (18:58)
[2024-01-01] MEDS ORDERED: MIRA3350 PO (18:58)
== END 2024-01-01 17:25 | disposition left against medical advice (07) | DRG 48 ==
LOC: M ED 13:53 → M ED INP 20:42
PROVIDERS: ADMIT Family Medicine; ATTEND Internal Medicine
DX: E10.43 Type 1 diabetes mellitus with diabetic autonomic (poly)neuropathy (principal); E87.20 Acidosis, unspecified; F12.90 Cannabis use, unspecified, uncomplicated; E86.0 Dehydration; D72.829 Elevated white blood cell count, unspecified; Z79.4 Long term (current) use of insulin; Z88.8 Allergy status to other drugs, medicaments and biological substances; Z79.899 Other long term (current) drug therapy; M54.59 Other low back pain; E28.2 Polycystic ovarian syndrome; G43.909 Migraine, unspecified, not intractable, without status migrainosus; F41.9 Anxiety disorder, unspecified; F32.A Depression, unspecified; Z87.891 Personal history of nicotine dependence; I10 Essential (primary) hypertension; E10.10 Type 1 diabetes mellitus with ketoacidosis without coma

== ENCOUNTER 2024-01-01 12:41 | Emergency (ER) | payer OTHER ==
[~2024-01-01] VITALS: Ht 154.9 cm; Wt 68.9 kg
[2024-01-01] MEDS: HALOPERIDOL LACTATE 5MG/ML VIAL IV STA (13:14)
[2024-01-01] MEDS: NS 1,000 ML IV ONE (13:14)
[2024-01-01 13:17] LABS: VENOUS BASE EXCESS -3.1 (-2.0-2.0); VENOUS HCO3 17.9 MMOL/L (23.0-27.0); VENOUS PARTIAL PRESSURE CO2 22.8 mmHg (38.0-50.0); VENOUS PARTIAL PRESSURE O2 78.7 mmHg (30.0-50.0); VENOUS PH 7.512 UNITS (7.330-7.430); VENOUS STANDARD HCO3 21.9 MMOL/L; VENOUS TOTAL CO2 18.6 MMOL/L (24.0-28.0)
[2024-01-01 13:24] LABS: BASO # 0.1 10^3/uL (0.0-0.2); BASO % 0.6 % (0.0-1.0); EOS # 0.1 10^3/uL (0.0-0.5); EOS % 0.7 % (0.0-3.0); HEMATOCRIT 38.6 % (36.0-47.0); HEMOGLOBIN 13.1 g/dl (12.0-15.5); LYMPH # 2.3 10^3/uL (1.5-5.0); LYMPH % 14.5 % (24.0-44.0); MEAN CORPUSCULAR HEMOGLOBIN 29.1 pg (27.0-33.0); MEAN CORPUSCULAR HGB CONC 33.9 g/dl (32.0-36.5); MEAN CORPUSCULAR VOLUME 85.8 fl (80.0-96.0); MONO # 0.6 10^3/uL (0.0-0.8); NEUTROPHILS # 12.5 10^3/uL (1.5-8.5); NEUTROPHILS % 79.9 % (36.0-66.0); PLATELET COUNT, AUTOMATED 370 10^3/uL (150-450); WHITE BLOOD COUNT 15.6 10^3/uL (4.0-10.0)
[2024-01-01] MEDS: KETOROLAC 30 MG/ML 1ML VIAL IV ONE (13:29)
[2024-01-01 13:34] LABS: HEMOGLOBIN A1c 9.4 % (4.0-6.0)
[2024-01-01 13:48] LABS: LIPASE 40 U/L (12-53)
[2024-01-01 13:50] LABS: ACETONE/KETONE 4.09 MMOL/L (0.02-0.27)
[2024-01-01 13:51] LABS: CPK CREATINE PHOSPHOKINASE 55 U/L (34-145)
[2024-01-01 13:55] LABS: ALBUMIN 4.3 G/DL (3.2-5.2); ALKALINE PHOSPHATASE 86 U/L (46-116); ALT/SGPT 18 U/L (7.0-40); AST/SGOT 10 U/L (<34); BILIRUBIN,DIRECT 0.2 MG/DL (<0.4); BILIRUBIN,TOTAL 0.6 MG/DL (0.3-1.2); BLOOD UREA NITROGEN 15 MG/DL (9-23); CALCIUM LEVEL 9.2 MG/DL (8.5-10.1); CARBON DIOXIDE LEVEL 19 MMOL/L (20-31); CHLORIDE LEVEL 100 MMOL/L (98-107); CK-MB VALUE MASS < 1.0 NG/ML (<3.6); CREATININE FOR GFR 0.62 MG/DL (0.55-1.30); GLOMERULAR FILTRATION RATE > 60.0 (>58); GLUCOSE, FASTING 404 MG/DL (60-100); MAGNESIUM LEVEL 1.6 MG/DL (1.8-2.4); MB/CK RELATIVE INDEX 1.81 (< OR =4); POTASSIUM SERUM 3.9 MMOL/L (3.5-5.1); SODIUM LEVEL 134 MMOL/L (136-145)
[2024-01-01] MEDS: HumuLIN R (REGULAR) INSULIN (NovoLIN R) **100U/ML** PER UNIT IV ONE (14:20)
[2024-01-01 14:46] LABS: CK-MB VALUE MASS < 1.0 NG/ML (<3.6)
[2024-01-01 14:47] LABS: CPK CREATINE PHOSPHOKINASE 53 U/L (34-145); MB/CK RELATIVE INDEX 1.88 (< OR =4)
[2024-01-01 15:33] LABS: VENOUS BASE EXCESS 0.4 (-2.0-2.0); VENOUS HCO3 25.6 MMOL/L (23.0-27.0); VENOUS O2 SATURATION 84.4 % (60.0-80.0); VENOUS PARTIAL PRESSURE CO2 43.7 mmHg (38.0-50.0); VENOUS PARTIAL PRESSURE O2 49.2 mmHg (30.0-50.0); VENOUS PH 7.386 UNITS (7.330-7.430); VENOUS STANDARD HCO3 24.5 MMOL/L
[2024-01-01 16:05] LABS: BLOOD UREA NITROGEN 13 MG/DL (9-23); CALCIUM LEVEL 8.6 MG/DL (8.5-10.1); CARBON DIOXIDE LEVEL 24 MMOL/L (20-31); CHLORIDE LEVEL 101 MMOL/L (98-107); CREATININE FOR GFR 0.61 MG/DL (0.55-1.30); GLOMERULAR FILTRATION RATE > 60.0 (>58); GLUCOSE, FASTING 350 MG/DL (60-100); SODIUM LEVEL 136 MMOL/L (136-145)
[2024-01-01] MEDS ORDERED: ISOVUE-370 76% 100ML VIAL As Ordered ONE (17:19)
[2024-01-01] MEDS: METOCLOPRAMIDE INJ 10MG/2ML VIAL IV ONE (17:22)
[2024-01-01] MEDS: MORPHINE 2 MG/ML 1ML VIAL IV ONE (17:43)
[2024-01-01] MEDS: diphenhydrAMINE 50MG/ML VIAL IV STA (17:51)
[2024-01-01 18:30] VITALS: O2SAT 97
[2024-01-01 18:34] VITALS: BP 110/56
[2024-01-01] MEDS: FOSFOMYCIN TROMETHAMINE 3 GM POWDER PACKET (MONUROL) PO ONE (18:39)
[2024-01-01] MEDS ORDERED: MIRA3350 PO (18:58)
[2024-01-01] MEDS ORDERED: COLA100C5 PO (18:58)
[2024-01-01 19:08] VITALS: TEMP 98.7
== END 2024-01-01 19:09 | disposition home or self-care (01) ==
LOC: EDBD 12:41 → M ED 12:41
DX: N39.0 Urinary tract infection, site not specified (principal); K59.00 Constipation, unspecified; E11.65 Type 2 diabetes mellitus with hyperglycemia; I45.81 Long QT syndrome; I10 Essential (primary) hypertension; E28.2 Polycystic ovarian syndrome; F41.9 Anxiety disorder, unspecified; F32.9 Major depressive disorder, single episode, unspecified; F12.10 Cannabis abuse, uncomplicated; Z87.19 Personal history of other diseases of the digestive system; Z88.8 Allergy status to other drugs, medicaments and biological substances; Z79.52 Long term (current) use of systemic steroids; Z79.4 Long term (current) use of insulin; Z79.83 Long term (current) use of bisphosphonates; Z79.899 Other long term (current) drug therapy
CPT/HCPCS: 71045; 71260; 74177; 80048; 80076; 81001; 82010; 82550; 82553; 82803; 83036; 83690; 83735; 84484; 85025; 87086; 87486; 87581; 87633; 87798; 93005; 93041; 94760; 96361; 96374; 96375; 99285; J1200; J1630; J1815; J1885; J2765; Q9967

== ENCOUNTER 2024-01-06 06:52 | Inpatient (IN) | payer OTHER ==
[~2024-01-06] VITALS: Ht 157.5 cm; Wt 67.5 kg
[2024-01-06] VITALS (8 sets, daily range): BP systolic 112–148; BP diastolic 62–91; TEMP 97.3–97.9; O2SAT 96–100
[~2024-01-06 06:52] MED LIST changes: +COLA100C5 PO; +MIRA3350 PO
[2024-01-06 07:53] LABS: VENOUS BASE EXCESS -10.9 (-2.0-2.0); VENOUS HCO3 13.9 MMOL/L (23.0-27.0); VENOUS O2 SATURATION 59.2 % (60.0-80.0); VENOUS PARTIAL PRESSURE CO2 28.7 mmHg (38.0-50.0); VENOUS PARTIAL PRESSURE O2 31.8 mmHg (30.0-50.0); VENOUS PH 7.302 UNITS (7.330-7.430); VENOUS STANDARD HCO3 15.2 MMOL/L; VENOUS TOTAL CO2 14.7 MMOL/L (24.0-28.0)
[2024-01-06] MEDS: HALOPERIDOL LACTATE 5MG/ML VIAL IV ONE (07:55)
[2024-01-06 08:03] LABS: BASO # 0.1 10^3/uL (0.0-0.2); BASO % 0.5 % (0.0-1.0); EOS % 0.1 % (0.0-3.0); HEMATOCRIT 42.4 % (36.0-47.0); HEMOGLOBIN 13.8 g/dl (12.0-15.5); LYMPH # 1.5 10^3/uL (1.5-5.0); LYMPH % 10.5 % (24.0-44.0); MEAN CORPUSCULAR HGB CONC 32.5 g/dl (32.0-36.5); MEAN CORPUSCULAR VOLUME 89.1 fl (80.0-96.0); MONO # 0.3 10^3/uL (0.0-0.8); MONO % 2.3 % (2.0-8.0); NEUTROPHILS # 12.5 10^3/uL (1.5-8.5); NEUTROPHILS % 85.9 % (36.0-66.0); PLATELET COUNT, AUTOMATED 442 10^3/uL (150-450); RED BLOOD COUNT 4.76 10^6/uL (4.00-5.40); WHITE BLOOD COUNT 14.5 10^3/uL (4.0-10.0)
[2024-01-06 08:29] LABS: LIPASE 34 U/L (12-53)
[2024-01-06 08:42] LABS: PROCALCITONIN 0.07 ng/ml
[2024-01-06 08:43] LABS: ALBUMIN 4.7 G/DL (3.2-5.2); ALKALINE PHOSPHATASE 100 U/L (46-116); ALT/SGPT 15 U/L (7.0-40); AST/SGOT 14 U/L (<34); BILIRUBIN,DIRECT 0.2 MG/DL (<0.4); BILIRUBIN,TOTAL 0.6 MG/DL (0.3-1.2); BLOOD UREA NITROGEN 12 MG/DL (9-23); CALCIUM LEVEL 9.6 MG/DL (8.5-10.1); CARBON DIOXIDE LEVEL 14 MMOL/L (20-31); CHLORIDE LEVEL 90 MMOL/L (98-107); CREATININE FOR GFR 0.62 MG/DL (0.55-1.30); GLOMERULAR FILTRATION RATE > 60.0 (>58); GLUCOSE, FASTING 604 MG/DL (60-100); MAGNESIUM LEVEL 1.9 MG/DL (1.8-2.4); POTASSIUM SERUM 4.8 MMOL/L (3.5-5.1); SODIUM LEVEL 130 MMOL/L (136-145); TOTAL PROTEIN 7.7 G/DL (5.7-8.2)
[2024-01-06] MEDS ORDERED: INSULIN IV RATE CHANGE DOCUMENTATION ML/HR XX SCH (08:50)
[2024-01-06 08:54] LABS: ACETONE/KETONE > 4.50 MMOL/L (0.02-0.27)
[2024-01-06] MEDS: NS 1,910 ML in IV 1 EA IV ONE (08:55)
[2024-01-06] MEDS: PIPERACILLIN/TAZOBACTAM SOD 4.5 GM in D5W MINI-BAG PLUS 50 ML IV ONE (08:55)
[2024-01-06 09:12] LABS: HEMOGLOBIN A1c 9.5 % (4.0-6.0)
[2024-01-06] MEDS ORDERED: METOCLOPRAMIDE INJ 10MG/2ML VIAL IV PRN (09:20)
[2024-01-06] MEDS: INSULIN REGULAR IN 0.9 % NACL 100 UNIT in IV 1 EA IV SCH ×2 (09:24→09:40)
[2024-01-06 09:44] LABS: AMPHETAMINES LEVEL URINE NEGATIVE (NEGATIVE); BARBITURATES URINE NEGATIVE (NEGATIVE); COCAINE METABOLITE URINE NEGATIVE (NEGATIVE); METHADONE URINE NEGATIVE (NEGATIVE); OPIATES URINE NEGATIVE (NEGATIVE); PHENCYCLIDINE URINE NEGATIVE (NEGATIVE)
[2024-01-06 09:52] LABS: BENZODIAZEPINES URINE POSITIVE (NEGATIVE); CANNABINOIDS URINE POSITIVE (NEGATIVE)
[2024-01-06] MEDS: HumuLIN R (REGULAR) INSULIN (NovoLIN R) **100U/ML** PER UNIT IV ONE (10:05)
[2024-01-06] MEDS ORDERED: HOME MED LIST COMPLETE! XX SCH (10:15)
[2024-01-06] MEDS: INSULIN IV RATE CHANGE DOCUMENTATION ML/HR XX SCH (11:17)
[2024-01-06] MEDS: ENOXAPARIN 40MG/0.4ML SYRINGE (J1650 PER 10MG) SC SCH (11:26)
[2024-01-06] MEDS: PANTOPRAZOLE 40MG VIAL IV SCH (11:26)
[2024-01-06] MEDS ORDERED: ALBUTEROL 90 MCG/ACT 8GM HFA INHALER INH PRN (11:35)
[2024-01-06] MEDS ORDERED: ONDANSETRON 4MG ORAL DISINTEGRATING TAB PO PRN (11:35)
[2024-01-06] MEDS ORDERED: SCOPOLAMINE 1MG TRANSDERMAL PATCH TOP PRN (11:35)
[2024-01-06] MEDS: ALPRAZolam 0.5 MG TAB PO PRN (11:53)
[2024-01-06] MEDS: METOCLOPRAMIDE 10MG TAB PO SCH (12:00)
[2024-01-06] MEDS: PARoxetine 20MG TABLET PO SCH (12:15)
[2024-01-06] MEDS: LOSARTAN 25 MG TAB PO SCH (12:16)
[2024-01-06] MEDS: D5W/0.45% SODIUM CHLORIDE 1,000 ML IV SCH ×2 (12:16→16:50)
[2024-01-06 12:50] LABS: BLOOD UREA NITROGEN 10 MG/DL (9-23); CALCIUM LEVEL 8.4 MG/DL (8.5-10.1); CARBON DIOXIDE LEVEL 20 MMOL/L (20-31); CHLORIDE LEVEL 103 MMOL/L (98-107); CREATININE FOR GFR 0.58 MG/DL (0.55-1.30); GLOMERULAR FILTRATION RATE > 60.0 (>58); GLUCOSE, FASTING 204 MG/DL (60-100); MAGNESIUM LEVEL 1.7 MG/DL (1.8-2.4); POTASSIUM SERUM 3.9 MMOL/L (3.5-5.1); SODIUM LEVEL 135 MMOL/L (136-145)
[2024-01-06] MEDS: cefTRIAXone SOD 1 GM in D5W MINI-BAG PLUS 50 ML IV SCH (15:34)
[2024-01-06] MEDS: POTASSIUM CHLORIDE INJ 40 MEQ in LR 1,000 ML IV SCH (15:35)
[2024-01-06] MEDS: NORCO, ANEXSIA 5/325MG TABLET (HYDROcodone/ACETAMINOPHEN) PO PRN (15:35)
[2024-01-06] MEDS: MAG SULF 1GM/100ML (MAG RUN) 1 GM in IV 1 EA IV ONE (16:11)
[2024-01-06 16:50] LABS: BLOOD UREA NITROGEN 8 MG/DL (9-23); CALCIUM LEVEL 8.1 MG/DL (8.5-10.1); CARBON DIOXIDE LEVEL 24 MMOL/L (20-31); CHLORIDE LEVEL 105 MMOL/L (98-107); CREATININE FOR GFR 0.45 MG/DL (0.55-1.30); GLOMERULAR FILTRATION RATE > 60.0 (>58); GLUCOSE, FASTING 124 MG/DL (60-100); PHOSPHORUS LEVEL 1.7 MG/DL (2.5-4.9); POTASSIUM SERUM 3.5 MMOL/L (3.5-5.1); SODIUM LEVEL 137 MMOL/L (136-145)
[2024-01-06] MEDS: SUMAtriptan SUCCINATE 25 MG TAB PO PRN (17:16)
[2024-01-06] MEDS: POTASSIUM PHOSPHATE INJ 30 MMOL in D5W 500 ML IV SCH (17:32)
[2024-01-06] MEDS: LEVEMIR (INSULIN DETEMIR) 1 UNITS/0.01ML SC SCH (17:55)
[2024-01-06] MEDS: POTASSIUM CHLORIDE 10MEQ SR TABLET PO ONE (17:55)
[2024-01-06] MEDS ORDERED: GLUCAGON INJ 1MG VIAL SC PRN (19:15)
[2024-01-06] MEDS ORDERED: GLUCOSE 4 GM CHEW PO PRN (19:15)
[2024-01-06] MEDS ORDERED: DEXTROSE 50% 50ML SYRINGE IV PRN (19:15)
[2024-01-06] MEDS: INSULIN LISPRO (NovoLOG) PER UNIT SC SCH (21:00)
[2024-01-06 21:16] LABS: BLOOD UREA NITROGEN 6 MG/DL (9-23); CALCIUM LEVEL 8.1 MG/DL (8.5-10.1); CARBON DIOXIDE LEVEL 24 MMOL/L (20-31); CHLORIDE LEVEL 104 MMOL/L (98-107); CREATININE FOR GFR 0.48 MG/DL (0.55-1.30); GLOMERULAR FILTRATION RATE > 60.0 (>58); GLUCOSE, FASTING 160 MG/DL (60-100); PHOSPHORUS LEVEL 4.1 MG/DL (2.5-4.9); POTASSIUM SERUM 4.4 MMOL/L (3.5-5.1); SODIUM LEVEL 136 MMOL/L (136-145)
[2024-01-07 00:02] VITALS: BP 152/93; TEMP 98.5; O2SAT 99
[2024-01-07 04:25] VITALS: BP 153/98; TEMP 98; O2SAT 99
[2024-01-07 05:05] LABS: BLOOD UREA NITROGEN < 5 MG/DL (9-23); CALCIUM LEVEL 8.9 MG/DL (8.5-10.1); CARBON DIOXIDE LEVEL 25 MMOL/L (20-31); CHLORIDE LEVEL 105 MMOL/L (98-107); CREATININE FOR GFR 0.48 MG/DL (0.55-1.30); GLOMERULAR FILTRATION RATE > 60.0 (>58); GLUCOSE, FASTING 182 MG/DL (60-100); POTASSIUM SERUM 4.7 MMOL/L (3.5-5.1); SODIUM LEVEL 137 MMOL/L (136-145)
[2024-01-07 06:27] LABS: BASO # 0.1 10^3/uL (0.0-0.2); BASO % 0.7 % (0.0-1.0); EOS # 0.2 10^3/uL (0.0-0.5); EOS % 2.4 % (0.0-3.0); HEMATOCRIT 37.9 % (36.0-47.0); HEMOGLOBIN 13.1 g/dl (12.0-15.5); LYMPH # 2.8 10^3/uL (1.5-5.0); LYMPH % 33.8 % (24.0-44.0); MEAN CORPUSCULAR HEMOGLOBIN 29.6 pg (27.0-33.0); MEAN CORPUSCULAR HGB CONC 34.6 g/dl (32.0-36.5); MEAN CORPUSCULAR VOLUME 85.7 fl (80.0-96.0); MONO # 0.6 10^3/uL (0.0-0.8); MONO % 6.6 % (2.0-8.0); NEUTROPHILS # 4.6 10^3/uL (1.5-8.5); NEUTROPHILS % 56.1 % (36.0-66.0); PLATELET COUNT, AUTOMATED 374 10^3/uL (150-450); RED BLOOD COUNT 4.42 10^6/uL (4.00-5.40); WHITE BLOOD COUNT 8.3 10^3/uL (4.0-10.0)
[2024-01-07] MEDS: INSULIN LISPRO (NovoLOG) PER UNIT SC SCH (07:45)
[2024-01-07 08:00] VITALS: BP 150/69; TEMP 98.5; O2SAT 99
[2024-01-07] MEDS ORDERED: LEVO1TAB39 PO (10:00)
[2024-01-07] MEDS ORDERED: PILL CUTTER 1 EACH XX PRN (10:55)
[2024-01-07 10:57] LABS: PROCALCITONIN 0.05 ng/ml
[2024-01-07 11:03] LABS: BLOOD UREA NITROGEN < 5 MG/DL (9-23); CALCIUM LEVEL 9.4 MG/DL (8.5-10.1); CARBON DIOXIDE LEVEL 26 MMOL/L (20-31); CHLORIDE LEVEL 103 MMOL/L (98-107); CREATININE FOR GFR 0.49 MG/DL (0.55-1.30); GLOMERULAR FILTRATION RATE > 60.0 (>58); GLUCOSE, FASTING 195 MG/DL (60-100); POTASSIUM SERUM 4.2 MMOL/L (3.5-5.1); SODIUM LEVEL 136 MMOL/L (136-145)
[2024-01-07 11:16] VITALS: BP_SYST 134; BP_SYST 150; BP_DIAS 81; BP_DIAS 96
[2024-01-07] MEDS: cloNIDine 0.2 MG TAB PO ONE (11:16)
[2024-01-07 13:06] VITALS: BP 96/60; TEMP 98.6; O2SAT 100
== END 2024-01-07 13:20 | disposition home or self-care (01) | DRG 420 ==
LOC: M ED 06:52 → M ED INP 09:20 → M ICU 10:57
PROVIDERS: ADMIT Internal Medicine Pulmonary Disease; ATTEND General Practice
DX: E11.10 Type 2 diabetes mellitus with ketoacidosis without coma (principal); I10 Essential (primary) hypertension; F12.90 Cannabis use, unspecified, uncomplicated; Z88.8 Allergy status to other drugs, medicaments and biological substances; Z79.899 Other long term (current) drug therapy; Z79.4 Long term (current) use of insulin; M54.9 Dorsalgia, unspecified; E28.2 Polycystic ovarian syndrome; G43.909 Migraine, unspecified, not intractable, without status migrainosus; F41.9 Anxiety disorder, unspecified; F32.A Depression, unspecified; E11.43 Type 2 diabetes mellitus with diabetic autonomic (poly)neuropathy

== ENCOUNTER 2024-01-17 20:54 | Inpatient (IN) | payer OTHER ==
[~2024-01-17] VITALS: Ht 154.9 cm; Wt 66.6 kg
[~2024-01-17 20:54] MED LIST changes: +LEVO1TAB39 PO
[2024-01-17] MEDS: NS 1,000 ML IV ONE (21:05)
[2024-01-17 21:31] LABS: VENOUS BASE EXCESS -2.8 (-2.0-2.0); VENOUS HCO3 19.1 MMOL/L (23.0-27.0); VENOUS O2 SATURATION 71.1 % (60.0-80.0); VENOUS PARTIAL PRESSURE CO2 26.3 mmHg (38.0-50.0); VENOUS PARTIAL PRESSURE O2 36.4 mmHg (30.0-50.0); VENOUS STANDARD HCO3 21.5 MMOL/L
[2024-01-17 21:37] LABS: BASO # 0.1 10^3/uL (0.0-0.2); BASO % 0.5 % (0.0-1.0); EOS % 0.2 % (0.0-3.0); HEMATOCRIT 36.6 % (36.0-47.0); HEMOGLOBIN 12.5 g/dl (12.0-15.5); LYMPH # 2.2 10^3/uL (1.5-5.0); LYMPH % 13.2 % (24.0-44.0); MEAN CORPUSCULAR HEMOGLOBIN 29.1 pg (27.0-33.0); MEAN CORPUSCULAR HGB CONC 34.2 g/dl (32.0-36.5); MEAN CORPUSCULAR VOLUME 85.3 fl (80.0-96.0); MONO # 1.1 10^3/uL (0.0-0.8); MONO % 6.9 % (2.0-8.0); NEUTROPHILS # 12.9 10^3/uL (1.5-8.5); NEUTROPHILS % 78.7 % (36.0-66.0); PLATELET COUNT, AUTOMATED 417 10^3/uL (150-450); RED BLOOD COUNT 4.29 10^6/uL (4.00-5.40); WHITE BLOOD COUNT 16.4 10^3/uL (4.0-10.0)
[2024-01-17 22:01] LABS: LIPASE 32 U/L (12-53)
[2024-01-17 22:45] LABS: ALBUMIN 4.2 G/DL (3.2-5.2); ALKALINE PHOSPHATASE 83 U/L (46-116); ALT/SGPT 10 U/L (7.0-40); AST/SGOT 11 U/L (<34); BILIRUBIN,DIRECT 0.3 MG/DL (<0.4); BILIRUBIN,TOTAL 0.9 MG/DL (0.3-1.2); BLOOD UREA NITROGEN 26 MG/DL (9-23); CALCIUM LEVEL 9.4 MG/DL (8.5-10.1); CARBON DIOXIDE LEVEL 17 MMOL/L (20-31); CHLORIDE LEVEL 94 MMOL/L (98-107); CREATININE FOR GFR 0.81 MG/DL (0.55-1.30); GLOMERULAR FILTRATION RATE > 60.0 (>58); GLUCOSE, FASTING 464 MG/DL (60-100); POTASSIUM SERUM 3.7 MMOL/L (3.5-5.1); SODIUM LEVEL 133 MMOL/L (136-145); TOTAL PROTEIN 6.8 G/DL (5.7-8.2)
[2024-01-17 22:47] LABS: ACETONE/KETONE > 4.50 MMOL/L (0.02-0.27); OSMOLALITY SERUM 306 MOSM/KG (275-295)
[2024-01-17] MEDS ORDERED: INSULIN REGULAR IN 0.9 % NACL 100 UNIT in IV 1 EA IV SCH (23:15)
[2024-01-17] MEDS ORDERED: KCL 20MEQ IN D5/0.45NS 1000ML 1,000 ML IV SCH (23:15)
[2024-01-17] MEDS ORDERED: INSULIN IV RATE CHANGE DOCUMENTATION ML/HR XX SCH (23:15)
[2024-01-18] VITALS (10 sets, daily range): BP systolic 124–145; BP diastolic 70–94; TEMP 96.6–98.9; O2SAT 95–100
[2024-01-18] MEDS ORDERED: DOCU100C16 PO (00:08)
[2024-01-18] MEDS ORDERED: HOME MED LIST COMPLETE! XX SCH (00:10)
[2024-01-18] MEDS ORDERED: SUMAtriptan SUCCINATE 25 MG TAB PO PRN (00:20)
[2024-01-18] MEDS ORDERED: ONDANSETRON 4MG 2ML VIAL IV PRN (00:20)
[2024-01-18] MEDS ORDERED: ALBUTEROL 90 MCG/ACT 8GM HFA INHALER INH PRN (00:20)
[2024-01-18] MEDS: HumuLIN R (REGULAR) INSULIN (NovoLIN R) **100U/ML** PER UNIT IV ONE (00:55)
[2024-01-18] MEDS: KCL 20MEQ in NS 1000ML 1,000 ML IV SCH (00:56)
[2024-01-18] MEDS: INSULIN REGULAR IN 0.9 % NACL 100 UNIT in IV 1 EA IV SCH (01:00)
[2024-01-18] MEDS: cefTRIAXone SOD 1 GM in D5W MINI-BAG PLUS 50 ML IV SCH (02:01)
[2024-01-18] MEDS: INSULIN IV RATE CHANGE DOCUMENTATION ML/HR XX SCH (02:07)
[2024-01-18 03:45] LABS: VENOUS BASE EXCESS 0.3 (-2.0-2.0); VENOUS HCO3 25.8 MMOL/L (23.0-27.0); VENOUS O2 SATURATION 82.4 % (60.0-80.0); VENOUS PARTIAL PRESSURE CO2 44.8 mmHg (38.0-50.0); VENOUS PARTIAL PRESSURE O2 48.1 mmHg (30.0-50.0); VENOUS PH 7.378 UNITS (7.330-7.430); VENOUS STANDARD HCO3 24.5 MMOL/L; VENOUS TOTAL CO2 27.2 MMOL/L (24.0-28.0)
[2024-01-18 04:13] LABS: BLOOD UREA NITROGEN 22 MG/DL (9-23); CARBON DIOXIDE LEVEL 26 MMOL/L (20-31); CHLORIDE LEVEL 100 MMOL/L (98-107); CREATININE FOR GFR 0.72 MG/DL (0.55-1.30); GLOMERULAR FILTRATION RATE > 60.0 (>58); GLUCOSE, FASTING 204 MG/DL (60-100); PHOSPHORUS LEVEL 1.9 MG/DL (2.5-4.9); POTASSIUM SERUM 3.5 MMOL/L (3.5-5.1); SODIUM LEVEL 136 MMOL/L (136-145)
[2024-01-18] MEDS: ALPRAZolam 0.5 MG TAB PO PRN (04:16)
[2024-01-18] MEDS: NORCO, ANEXSIA 5/325MG TABLET (HYDROcodone/ACETAMINOPHEN) PO PRN (04:17)
[2024-01-18 04:25] LABS: OSMOLALITY SERUM 296 MOSM/KG (275-295)
[2024-01-18] MEDS: KCL 20MEQ IN D5/0.45NS 1000ML 1,000 ML IV SCH (04:53)
[2024-01-18] MEDS: POTASSIUM PHOSPHATE INJ 30 MMOL in D5W 500 ML IV ONE (06:05)
[2024-01-18] MEDS: DOCUSATE SODIUM 100MG CAPSULE PO SCH (08:09)
[2024-01-18] MEDS: LOSARTAN 25 MG TAB PO SCH (08:10)
[2024-01-18] MEDS: ENOXAPARIN 40MG/0.4ML SYRINGE (J1650 PER 10MG) SC SCH (08:10)
[2024-01-18] MEDS: PARoxetine 20MG TABLET PO SCH (08:10)
[2024-01-18 08:27] LABS: VENOUS HCO3 23.3 MMOL/L (23.0-27.0); VENOUS O2 SATURATION 98.6 % (60.0-80.0); VENOUS PARTIAL PRESSURE CO2 33.3 mmHg (38.0-50.0); VENOUS PARTIAL PRESSURE O2 145.7 mmHg (30.0-50.0); VENOUS PH 7.462 UNITS (7.330-7.430); VENOUS STANDARD HCO3 24.5 MMOL/L; VENOUS TOTAL CO2 24.3 MMOL/L (24.0-28.0)
[2024-01-18 08:57] LABS: OSMOLALITY SERUM 282 MOSM/KG (275-295)
[2024-01-18 09:08] LABS: ACETONE/KETONE 0.11 MMOL/L (0.02-0.27)
[2024-01-18 09:09] LABS: BLOOD UREA NITROGEN 18 MG/DL (9-23); CALCIUM LEVEL 8.3 MG/DL (8.5-10.1); CARBON DIOXIDE LEVEL 26 MMOL/L (20-31); CHLORIDE LEVEL 101 MMOL/L (98-107); CREATININE FOR GFR 0.59 MG/DL (0.55-1.30); GLOMERULAR FILTRATION RATE > 60.0 (>58); GLUCOSE, FASTING 158 MG/DL (60-100); MAGNESIUM LEVEL 1.6 MG/DL (1.8-2.4); PHOSPHORUS LEVEL 3.7 MG/DL (2.5-4.9); POTASSIUM SERUM 3.8 MMOL/L (3.5-5.1); SODIUM LEVEL 133 MMOL/L (136-145)
[2024-01-18] MEDS: LEVEMIR (INSULIN DETEMIR) 1 UNITS/0.01ML SC SCH (09:41)
[2024-01-18] MEDS: MAG SULF 1GM/100ML (MAG RUN) 1 GM in IV 1 EA IV ONE (09:41)
[2024-01-18] MEDS ORDERED: GLUCOSE 4 GM CHEW PO PRN (11:40)
[2024-01-18] MEDS ORDERED: DEXTROSE 50% 50ML SYRINGE IV PRN (11:40)
[2024-01-18] MEDS ORDERED: GLUCAGON INJ 1MG VIAL SC PRN (11:40)
[2024-01-18] MEDS: INSULIN LISPRO (NovoLOG) PER UNIT SC SCH ×2 (11:55→20:37)
[2024-01-18 14:38] LABS: BASO # 0.1 10^3/uL (0.0-0.2); BASO % 0.6 % (0.0-1.0); EOS # 0.2 10^3/uL (0.0-0.5); EOS % 1.5 % (0.0-3.0); HEMATOCRIT 31.6 % (36.0-47.0); HEMOGLOBIN 10.7 g/dl (12.0-15.5); LYMPH # 4.3 10^3/uL (1.5-5.0); LYMPH % 41.7 % (24.0-44.0); MEAN CORPUSCULAR HEMOGLOBIN 29.3 pg (27.0-33.0); MEAN CORPUSCULAR HGB CONC 33.9 g/dl (32.0-36.5); MEAN CORPUSCULAR VOLUME 86.6 fl (80.0-96.0); MONO # 0.9 10^3/uL (0.0-0.8); MONO % 8.5 % (2.0-8.0); NEUTROPHILS % 47.6 % (36.0-66.0); PLATELET COUNT, AUTOMATED 346 10^3/uL (150-450); RED BLOOD COUNT 3.65 10^6/uL (4.00-5.40); WHITE BLOOD COUNT 10.4 10^3/uL (4.0-10.0)
[2024-01-18] MEDS: LevoFLOXacin 750 MG TABLET PO SCH (14:52)
[2024-01-18 15:12] LABS: BLOOD UREA NITROGEN 14 MG/DL (9-23); CALCIUM LEVEL 8.3 MG/DL (8.5-10.1); CARBON DIOXIDE LEVEL 26 MMOL/L (20-31); CHLORIDE LEVEL 102 MMOL/L (98-107); GLOMERULAR FILTRATION RATE > 60.0 (>58); GLUCOSE, FASTING 176 MG/DL (60-100); SODIUM LEVEL 134 MMOL/L (136-145)
[2024-01-18] MEDS: MAG SULF 1GM/100ML (MAG RUN) 1 GM in IV 1 EA IV SCH (16:54)
[2024-01-19 04:00] VITALS: BP 147/97; TEMP 97.9; O2SAT 98
[2024-01-19 06:17] LABS: BASO # 0.1 10^3/uL (0.0-0.2); BASO % 1.2 % (0.0-1.0); EOS # 0.2 10^3/uL (0.0-0.5); EOS % 2.4 % (0.0-3.0); HEMATOCRIT 38.4 % (36.0-47.0); LYMPH % 35.2 % (24.0-44.0); MEAN CORPUSCULAR HEMOGLOBIN 29.3 pg (27.0-33.0); MEAN CORPUSCULAR HGB CONC 33.1 g/dl (32.0-36.5); MEAN CORPUSCULAR VOLUME 88.5 fl (80.0-96.0); MONO # 0.6 10^3/uL (0.0-0.8); MONO % 7.3 % (2.0-8.0); NEUTROPHILS # 4.6 10^3/uL (1.5-8.5); NEUTROPHILS % 53.7 % (36.0-66.0); PLATELET COUNT, AUTOMATED 362 10^3/uL (150-450); RED BLOOD COUNT 4.34 10^6/uL (4.00-5.40); WHITE BLOOD COUNT 8.5 10^3/uL (4.0-10.0)
[2024-01-19 06:20] LABS: HEMOGLOBIN 12.7 g/dl (12.0-15.5)
[2024-01-19 06:31] LABS: BLOOD UREA NITROGEN 11 MG/DL (9-23); CARBON DIOXIDE LEVEL 26 MMOL/L (20-31); CHLORIDE LEVEL 103 MMOL/L (98-107); CREATININE FOR GFR 0.65 MG/DL (0.55-1.30); GLOMERULAR FILTRATION RATE > 60.0 (>58); GLUCOSE, FASTING 251 MG/DL (60-100); MAGNESIUM LEVEL 1.9 MG/DL (1.8-2.4); POTASSIUM SERUM 4.6 MMOL/L (3.5-5.1); SODIUM LEVEL 137 MMOL/L (136-145)
[2024-01-19 08:11] VITALS: BP 171/118
[2024-01-19] MEDS ORDERED: LEVO1TAB40 PO (08:23)
[2024-01-19 09:18] VITALS: BP 145/96
== END 2024-01-19 11:08 | disposition home or self-care (01) | DRG 420 ==
LOC: EDBD 20:54 → M ED 20:54 → M ED INP 01-18 00:19 → M ICU 01-18 01:40 → M MSPAV 01-18 22:09
PROVIDERS: ADMIT Internal Medicine; ATTEND Internal Medicine
DX: E10.10 Type 1 diabetes mellitus with ketoacidosis without coma (principal); E83.39 Other disorders of phosphorus metabolism; I10 Essential (primary) hypertension; F41.9 Anxiety disorder, unspecified; J45.909 Unspecified asthma, uncomplicated; N39.0 Urinary tract infection, site not specified; G43.909 Migraine, unspecified, not intractable, without status migrainosus; F32.A Depression, unspecified; Z88.8 Allergy status to other drugs, medicaments and biological substances; Z79.899 Other long term (current) drug therapy; Z79.4 Long term (current) use of insulin; E28.2 Polycystic ovarian syndrome; Z87.891 Personal history of nicotine dependence; M54.50 Low back pain, unspecified

== ENCOUNTER 2024-02-01 06:23 | Inpatient (IN) | payer MEDICAID, OTHER ==
[~2024-02-01] VITALS: Ht 154.9 cm; Wt 77.9 kg
[2024-02-01] VITALS (12 sets, daily range): BP systolic 111–184; BP diastolic 67–105; TEMP 98–98.2; O2SAT 95–100
[~2024-02-01 06:23] MED LIST changes: +DOCU100C16 PO; +LEVO1TAB40 PO
[2024-02-01] MEDS: NS 1,000 ML IV ONE (07:18)
[2024-02-01 07:20] LABS: VENOUS BASE EXCESS -4.5 (-2.0-2.0); VENOUS HCO3 17.9 MMOL/L (23.0-27.0); VENOUS O2 SATURATION 88.4 % (60.0-80.0); VENOUS PARTIAL PRESSURE CO2 27.2 mmHg (38.0-50.0); VENOUS PARTIAL PRESSURE O2 50.6 mmHg (30.0-50.0); VENOUS PH 7.437 UNITS (7.330-7.430); VENOUS STANDARD HCO3 20.5 MMOL/L; VENOUS TOTAL CO2 18.8 MMOL/L (24.0-28.0)
[2024-02-01 07:27] LABS: BASO # 0.1 10^3/uL (0.0-0.2); BASO % 0.9 % (0.0-1.0); EOS % 0.3 % (0.0-3.0); HEMATOCRIT 43.1 % (36.0-47.0); HEMOGLOBIN 14.5 g/dl (12.0-15.5); LYMPH # 1.5 10^3/uL (1.5-5.0); LYMPH % 15.3 % (24.0-44.0); MEAN CORPUSCULAR HGB CONC 33.6 g/dl (32.0-36.5); MEAN CORPUSCULAR VOLUME 86.2 fl (80.0-96.0); MONO # 0.3 10^3/uL (0.0-0.8); MONO % 3.4 % (2.0-8.0); NEUTROPHILS # 7.8 10^3/uL (1.5-8.5); NEUTROPHILS % 79.9 % (36.0-66.0); PLATELET COUNT, AUTOMATED 429 10^3/uL (150-450); WHITE BLOOD COUNT 9.8 10^3/uL (4.0-10.0)
[2024-02-01] MEDS ORDERED: ISOVUE-370 76% 100ML VIAL As Ordered ONE (07:29)
[2024-02-01 07:51] LABS: HEMOGLOBIN A1c 8.8 % (4.0-6.0)
[2024-02-01 07:57] LABS: OSMOLALITY SERUM 314 MOSM/KG (275-295)
[2024-02-01] MEDS: ONDANSETRON 4MG 2ML VIAL IV ONE (08:02)
[2024-02-01 08:03] LABS: ACETONE/KETONE > 4.50 MMOL/L (0.02-0.27); ALKALINE PHOSPHATASE 110 U/L (46-116); ALT/SGPT 25 U/L (7.0-40); AST/SGOT 25 U/L (<34); BILIRUBIN,DIRECT 0.1 MG/DL (<0.4); BILIRUBIN,TOTAL 0.5 MG/DL (0.3-1.2); BLOOD UREA NITROGEN 9 MG/DL (9-23); CALCIUM LEVEL 10.1 MG/DL (8.5-10.1); CARBON DIOXIDE LEVEL 19 MMOL/L (20-31); CHLORIDE LEVEL 95 MMOL/L (98-107); CREATININE FOR GFR 0.57 MG/DL (0.55-1.30); GLOMERULAR FILTRATION RATE > 60.0 (>58); GLUCOSE, FASTING 418 MG/DL (60-100); LIPASE 35 U/L (12-53); PHOSPHORUS LEVEL 2.9 MG/DL (2.5-4.9); POTASSIUM SERUM 5.2 MMOL/L (3.5-5.1); SODIUM LEVEL 131 MMOL/L (136-145); TOTAL PROTEIN 8.3 G/DL (5.7-8.2)
[2024-02-01] MEDS: MORPHINE 4 MG/ML 1ML VIAL IV ONE (08:03)
[2024-02-01 08:10] LABS: ABG BASE EXCESS -6.9 (-2.0-2.0); ABG HCO3 14.9 MMOL/L (22.0-26.0); ABG O2 SATURATION 98.6 % (95.0-99.0); ABG PARTIAL PRESSURE CO2 21.8 mmHg (35.0-45.0); ABG PARTIAL PRESSURE O2 116.6 mmHg (75.0-100.0); ABG STANDARD HCO3 18.9 MMOL/L. (22.0-26.0); ABG TOTAL CO2 15.5 MMOL/L (22.0-29.0); ABG pH (ARTERIAL) 7.452 UNITS (7.350-7.450)
[2024-02-01] MEDS ORDERED: LABETALOL 100MG/20ML VIAL IV STA (08:10)
[2024-02-01] MEDS ORDERED: INSULIN IV RATE CHANGE DOCUMENTATION ML/HR XX SCH ×2 (08:15→12:00)
[2024-02-01] MEDS: HumuLIN R (REGULAR) INSULIN (NovoLIN R) **100U/ML** PER UNIT IV ONE (08:40)
[2024-02-01] MEDS: INSULIN REGULAR IN 0.9 % NACL 100 UNIT in IV 1 EA IV SCH ×2 (08:42→11:16)
[2024-02-01] MEDS: LOSARTAN 25 MG TAB PO SCH (09:00)
[2024-02-01] MEDS: PANTOPRAZOLE 40MG VIAL IV SCH (09:00)
[2024-02-01] MEDS ORDERED: TRAN1DIS4 TOP (09:04)
[2024-02-01 09:06] LABS: CK-MB VALUE MASS < 1.0 NG/ML (<3.6); CPK CREATINE PHOSPHOKINASE 66 U/L (34-145); MB/CK RELATIVE INDEX 1.51 (< OR =4)
[2024-02-01] MEDS ORDERED: HOME MED LIST COMPLETE! XX SCH (09:15)
[2024-02-01] MEDS: LR 1,000 ML IV SCH (10:25)
[2024-02-01] MEDS: D5W/LR 1,000 ML IV SCH (11:46)
[2024-02-01] MEDS: ENOXAPARIN 40MG/0.4ML SYRINGE (J1650 PER 10MG) SC SCH (11:58)
[2024-02-01] MEDS ORDERED: SUMAtriptan SUCCINATE 25 MG TAB PO PRN (12:05)
[2024-02-01] MEDS ORDERED: ALBUTEROL 90 MCG/ACT 8GM HFA INHALER INH PRN (12:05)
[2024-02-01] MEDS ORDERED: SCOPOLAMINE 1MG TRANSDERMAL PATCH TOP PRN (12:05)
[2024-02-01] MEDS ORDERED: GLUCOSE 4 GM CHEW PO PRN (12:05)
[2024-02-01] MEDS: METOCLOPRAMIDE INJ 10MG/2ML VIAL IV ONE (12:36)
[2024-02-01] MEDS: PARoxetine 20MG TABLET PO SCH (12:37)
[2024-02-01] MEDS ORDERED: METOCLOPRAMIDE INJ 10MG/2ML VIAL IV ONE (13:00)
[2024-02-01 13:06] LABS: BLOOD UREA NITROGEN 10 MG/DL (9-23); CALCIUM LEVEL 9.6 MG/DL (8.5-10.1); CARBON DIOXIDE LEVEL 21 MMOL/L (20-31); CHLORIDE LEVEL 99 MMOL/L (98-107); CREATININE FOR GFR 0.52 MG/DL (0.55-1.30); GLOMERULAR FILTRATION RATE > 60.0 (>58); GLUCOSE, FASTING 163 MG/DL (60-100); PHOSPHORUS LEVEL 2.6 MG/DL (2.5-4.9); POTASSIUM SERUM 4.4 MMOL/L (3.5-5.1); SODIUM LEVEL 136 MMOL/L (136-145)
[2024-02-01] MEDS: MORPHINE 2 MG/ML 1ML VIAL IV ONE (13:59)
[2024-02-01 16:52] LABS: BLOOD UREA NITROGEN 8 MG/DL (9-23); CALCIUM LEVEL 8.7 MG/DL (8.5-10.1); CARBON DIOXIDE LEVEL 27 MMOL/L (20-31); CHLORIDE LEVEL 102 MMOL/L (98-107); CREATININE FOR GFR 0.47 MG/DL (0.55-1.30); GLOMERULAR FILTRATION RATE > 60.0 (>58); GLUCOSE, FASTING 121 MG/DL (60-100); PHOSPHORUS LEVEL 2.4 MG/DL (2.5-4.9); POTASSIUM SERUM 3.3 MMOL/L (3.5-5.1); SODIUM LEVEL 135 MMOL/L (136-145)
[2024-02-01] MEDS: METOCLOPRAMIDE 10MG TAB PO SCH (18:08)
[2024-02-01] MEDS: POTASSIUM CHLORIDE 10MEQ SR TABLET PO ONE ×2 (18:08→21:19)
[2024-02-01] MEDS: LEVEMIR (INSULIN DETEMIR) 1 UNITS/0.01ML SC SCH (18:19)
[2024-02-01 20:37] LABS: BLOOD UREA NITROGEN 7 MG/DL (9-23); CALCIUM LEVEL 8.8 MG/DL (8.5-10.1); CARBON DIOXIDE LEVEL 28 MMOL/L (20-31); CHLORIDE LEVEL 103 MMOL/L (98-107); CREATININE FOR GFR 0.53 MG/DL (0.55-1.30); GLOMERULAR FILTRATION RATE > 60.0 (>58); GLUCOSE, FASTING 85 MG/DL (60-100); PHOSPHORUS LEVEL 2.8 MG/DL (2.5-4.9); POTASSIUM SERUM 3.6 MMOL/L (3.5-5.1); SODIUM LEVEL 136 MMOL/L (136-145)
[2024-02-01] MEDS: DOCUSATE SODIUM 100MG CAPSULE PO SCH (21:00)
[2024-02-02] VITALS (12 sets, daily range): BP systolic 111–188; BP diastolic 71–119; TEMP 97.6–98.9; O2SAT 96–99
[2024-02-02 00:53] LABS: BLOOD UREA NITROGEN 8 MG/DL (9-23); CALCIUM LEVEL 8.9 MG/DL (8.5-10.1); CARBON DIOXIDE LEVEL 28 MMOL/L (20-31); CHLORIDE LEVEL 104 MMOL/L (98-107); CREATININE FOR GFR 0.82 MG/DL (0.55-1.30); GLOMERULAR FILTRATION RATE > 60.0 (>58); GLUCOSE, FASTING 200 MG/DL (60-100); PHOSPHORUS LEVEL 4.1 MG/DL (2.5-4.9); POTASSIUM SERUM 3.9 MMOL/L (3.5-5.1); SODIUM LEVEL 138 MMOL/L (136-145)
[2024-02-02] MEDS: LABETALOL 100MG/20ML VIAL IV ONE (02:24)
[2024-02-02] MEDS: NORCO, ANEXSIA 5/325MG TABLET (HYDROcodone/ACETAMINOPHEN) PO PRN (02:29)
[2024-02-02] MEDS ORDERED: ONDANSETRON 4MG 2ML VIAL As Ordered ONE (04:55)
[2024-02-02] MEDS: ONDANSETRON 4MG 2ML VIAL IV ONE (05:03)
[2024-02-02 05:07] LABS: BLOOD UREA NITROGEN 8 MG/DL (9-23); CARBON DIOXIDE LEVEL 23 MMOL/L (20-31); CHLORIDE LEVEL 101 MMOL/L (98-107); CREATININE FOR GFR 0.65 MG/DL (0.55-1.30); GLOMERULAR FILTRATION RATE > 60.0 (>58); GLUCOSE, FASTING 312 MG/DL (60-100); PHOSPHORUS LEVEL 3.4 MG/DL (2.5-4.9); POTASSIUM SERUM 4.5 MMOL/L (3.5-5.1); SODIUM LEVEL 134 MMOL/L (136-145)
[2024-02-02 08:32] LABS: BLOOD UREA NITROGEN 8 MG/DL (9-23); CARBON DIOXIDE LEVEL 19 MMOL/L (20-31); CHLORIDE LEVEL 97 MMOL/L (98-107); CREATININE FOR GFR 0.58 MG/DL (0.55-1.30); GLOMERULAR FILTRATION RATE > 60.0 (>58); GLUCOSE, FASTING 325 MG/DL (60-100); PHOSPHORUS LEVEL 3.2 MG/DL (2.5-4.9); POTASSIUM SERUM 4.5 MMOL/L (3.5-5.1); SODIUM LEVEL 131 MMOL/L (136-145)
[2024-02-02] MEDS: MORPHINE 2 MG/ML 1ML VIAL IV ONE (10:04)
[2024-02-02] MEDS ORDERED: DEXTROSE 50% 50ML SYRINGE IV PRN (10:10)
[2024-02-02] MEDS ORDERED: GLUCAGON INJ 1MG VIAL SC PRN (10:10)
[2024-02-02] MEDS: LEVEMIR (INSULIN DETEMIR) 1 UNITS/0.01ML SC ONE (10:27)
[2024-02-02] MEDS: INSULIN LISPRO (NovoLOG) PER UNIT SC SCH ×2 (10:28→17:30)
[2024-02-02 11:47] LABS: BASO # 0.1 10^3/uL (0.0-0.2); BASO % 0.8 % (0.0-1.0); EOS # 0.1 10^3/uL (0.0-0.5); EOS % 1.2 % (0.0-3.0); HEMATOCRIT 36.4 % (36.0-47.0); LYMPH # 2.5 10^3/uL (1.5-5.0); LYMPH % 26.5 % (24.0-44.0); MEAN CORPUSCULAR HGB CONC 33.2 g/dl (32.0-36.5); MEAN CORPUSCULAR VOLUME 87.3 fl (80.0-96.0); MONO # 0.6 10^3/uL (0.0-0.8); MONO % 6.6 % (2.0-8.0); NEUTROPHILS % 64.7 % (36.0-66.0); PLATELET COUNT, AUTOMATED 385 10^3/uL (150-450); RED BLOOD COUNT 4.17 10^6/uL (4.00-5.40); WHITE BLOOD COUNT 9.3 10^3/uL (4.0-10.0)
[2024-02-02 11:57] LABS: HEMOGLOBIN 12.1 g/dl (12.0-15.5)
[2024-02-02] MEDS: LR 1,000 ML IV SCH (12:48)
[2024-02-02 14:48] LABS: BLOOD UREA NITROGEN 11 MG/DL (9-23); CARBON DIOXIDE LEVEL 27 MMOL/L (20-31); CHLORIDE LEVEL 100 MMOL/L (98-107); CREATININE FOR GFR 0.66 MG/DL (0.55-1.30); GLOMERULAR FILTRATION RATE > 60.0 (>58); GLUCOSE, FASTING 120 MG/DL (60-100); POTASSIUM SERUM 3.6 MMOL/L (3.5-5.1); SODIUM LEVEL 133 MMOL/L (136-145)
[2024-02-02] MEDS: ALPRAZolam 0.5 MG TAB PO PRN (17:06)
[2024-02-03 04:00] VITALS: BP 180/102; TEMP 98.2; O2SAT 100
[2024-02-03] MEDS: ONDANSETRON 4MG ORAL DISINTEGRATING TAB PO PRN (04:51)
[2024-02-03] MEDS ORDERED: ONDANSETRON 4MG 2ML VIAL IV ONE (05:15)
[2024-02-03 05:50] VITALS: BP 168/110
[2024-02-03] MEDS: KETOROLAC 30 MG/ML 1ML VIAL IV ONE (05:50)
[2024-02-03] MEDS: LIDOCAINE 5% (LIDODERM) PATCH TD ONE (06:00)
[2024-02-03 06:12] LABS: BASO # 0.1 10^3/uL (0.0-0.2); BASO % 0.9 % (0.0-1.0); EOS # 0.2 10^3/uL (0.0-0.5); EOS % 1.9 % (0.0-3.0); HEMATOCRIT 38.9 % (36.0-47.0); HEMOGLOBIN 13.1 g/dl (12.0-15.5); LYMPH # 2.8 10^3/uL (1.5-5.0); LYMPH % 36.4 % (24.0-44.0); MEAN CORPUSCULAR HEMOGLOBIN 28.4 pg (27.0-33.0); MEAN CORPUSCULAR HGB CONC 33.7 g/dl (32.0-36.5); MEAN CORPUSCULAR VOLUME 84.2 fl (80.0-96.0); MONO # 0.5 10^3/uL (0.0-0.8); MONO % 6.5 % (2.0-8.0); NEUTROPHILS # 4.2 10^3/uL (1.5-8.5); NEUTROPHILS % 53.9 % (36.0-66.0); PLATELET COUNT, AUTOMATED 346 10^3/uL (150-450); RED BLOOD COUNT 4.62 10^6/uL (4.00-5.40); WHITE BLOOD COUNT 7.7 10^3/uL (4.0-10.0)
[2024-02-03 06:46] LABS: ALBUMIN 3.8 G/DL (3.2-5.2); BLOOD UREA NITROGEN 9 MG/DL (9-23); CALCIUM LEVEL 9.2 MG/DL (8.5-10.1); CARBON DIOXIDE LEVEL 24 MMOL/L (20-31); CHLORIDE LEVEL 98 MMOL/L (98-107); CREATININE FOR GFR 0.53 MG/DL (0.55-1.30); GLOMERULAR FILTRATION RATE > 60.0 (>58); GLUCOSE, FASTING 206 MG/DL (60-100); MAGNESIUM LEVEL 1.6 MG/DL (1.8-2.4); PHOSPHORUS LEVEL 2.4 MG/DL (2.5-4.9); POTASSIUM SERUM 3.9 MMOL/L (3.5-5.1); SODIUM LEVEL 133 MMOL/L (136-145)
[2024-02-03 06:50] VITALS: BP 178/90
[2024-02-03] MEDS: MAG SULF 1GM/100ML (MAG RUN) 1 GM in IV 1 EA IV SCH (08:59)
[2024-02-03] MEDS: K-PHOS NEUTRAL 250MG TABLET (SOD.PHOSPHATE/POT.PHOSPHATE) PO SCH (10:08)
[2024-02-03] MEDS ORDERED: HUMA100I5 SC (10:41)
[2024-02-03 10:58] VITALS: BP 160/110
[2024-02-03] MEDS: amLODIPine 5 MG TAB PO STA (10:58)
[2024-02-03 11:57] VITALS: BP 120/78
[2024-02-03 12:00] VITALS: TEMP 98.1; O2SAT 97
[2024-02-04] MEDS ORDERED: PROM1SUP2 PR (16:07)
== END 2024-02-03 15:06 | disposition home or self-care (01) | DRG 420 ==
LOC: M ED 06:23 → M ED INP 10:44 → M ICU 11:20 → M MSPAV 02-02 15:05
PROVIDERS: ADMIT Internal Medicine Pulmonary Disease; ATTEND Internal Medicine
DX: E13.10 Other specified diabetes mellitus with ketoacidosis without coma (principal); B34.0 Adenovirus infection, unspecified; K31.84 Gastroparesis; E83.42 Hypomagnesemia; E83.39 Other disorders of phosphorus metabolism; K76.0 Fatty (change of) liver, not elsewhere classified; F32.A Depression, unspecified; F41.9 Anxiety disorder, unspecified; G43.909 Migraine, unspecified, not intractable, without status migrainosus; M25.559 Pain in unspecified hip; M54.50 Low back pain, unspecified; G89.29 Other chronic pain; I10 Essential (primary) hypertension; E28.2 Polycystic ovarian syndrome; Z79.4 Long term (current) use of insulin; Z79.899 Other long term (current) drug therapy; Z88.8 Allergy status to other drugs, medicaments and biological substances; Z90.49 Acquired absence of other specified parts of digestive tract; Z87.891 Personal history of nicotine dependence; E13.43 Other specified diabetes mellitus with diabetic autonomic (poly)neuropathy; E13.65 Other specified diabetes mellitus with hyperglycemia

== ENCOUNTER 2024-02-04 11:01 | Emergency (ER) | payer OTHER ==
[~2024-02-04] VITALS: Ht 154.9 cm; Wt 63.0 kg
[~2024-02-04 11:01] MED LIST changes: +HUMA100I5 SC
[2024-02-04 11:55] LABS: VENOUS BASE EXCESS 0.7 (-2.0-2.0); VENOUS HCO3 24.6 MMOL/L (23.0-27.0); VENOUS O2 SATURATION 65.3 % (60.0-80.0); VENOUS PARTIAL PRESSURE CO2 37.1 mmHg (38.0-50.0); VENOUS PARTIAL PRESSURE O2 32.2 mmHg (30.0-50.0); VENOUS PH 7.439 UNITS (7.330-7.430); VENOUS STANDARD HCO3 24.3 MMOL/L; VENOUS TOTAL CO2 25.7 MMOL/L (24.0-28.0)
[2024-02-04 12:01] LABS: BASO # 0.1 10^3/uL (0.0-0.2); BASO % 0.6 % (0.0-1.0); EOS # 0.1 10^3/uL (0.0-0.5); EOS % 0.4 % (0.0-3.0); HEMATOCRIT 38.9 % (36.0-47.0); HEMOGLOBIN 13.2 g/dl (12.0-15.5); LYMPH # 1.7 10^3/uL (1.5-5.0); LYMPH % 12.8 % (24.0-44.0); MEAN CORPUSCULAR HGB CONC 33.9 g/dl (32.0-36.5); MEAN CORPUSCULAR VOLUME 85.5 fl (80.0-96.0); MONO # 0.5 10^3/uL (0.0-0.8); MONO % 3.9 % (2.0-8.0); NEUTROPHILS # 11.1 10^3/uL (1.5-8.5); PLATELET COUNT, AUTOMATED 366 10^3/uL (150-450); RED BLOOD COUNT 4.55 10^6/uL (4.00-5.40); WHITE BLOOD COUNT 13.5 10^3/uL (4.0-10.0)
[2024-02-04 12:23] LABS: HEMOGLOBIN A1c 8.8 % (4.0-6.0)
[2024-02-04 12:26] LABS: LIPASE 41 U/L (12-53)
[2024-02-04 12:28] LABS: ALBUMIN 4.2 G/DL (3.2-5.2); ALKALINE PHOSPHATASE 80 U/L (46-116); ALT/SGPT 14 U/L (7.0-40); AST/SGOT < 8 U/L (<34); BILIRUBIN,DIRECT 0.1 MG/DL (<0.4); BILIRUBIN,TOTAL 0.4 MG/DL (0.3-1.2); MAGNESIUM LEVEL 1.8 MG/DL (1.8-2.4); PHOSPHORUS LEVEL 2.4 MG/DL (2.5-4.9); TOTAL PROTEIN 6.9 G/DL (5.7-8.2)
[2024-02-04 12:29] LABS: ACETONE/KETONE 2.56 MMOL/L (0.02-0.27)
[2024-02-04 12:39] LABS: OSMOLALITY SERUM 304 MOSM/KG (275-295)
[2024-02-04] MEDS: PROMETHAZINE 25MG/ML 1ML VIAL IV ONE (13:04)
[2024-02-04] MEDS: NS 500 ML IV ONE (13:04)
[2024-02-04] MEDS: MORPHINE 4 MG/ML 1ML VIAL IV ONE ×2 (13:04→15:00)
[2024-02-04] MEDS: HumuLIN R (REGULAR) INSULIN (NovoLIN R) **100U/ML** PER UNIT IV ONE (15:00)
[2024-02-04] MEDS: NORCO, ANEXSIA 5/325MG TABLET (HYDROcodone/ACETAMINOPHEN) PO ONE (15:00)
[2024-02-04] MEDS ORDERED: PROM1SUP2 PR (16:07)
[2024-02-04 16:19] VITALS: BP 120/76; TEMP 98.2; O2SAT 97
== END 2024-02-04 16:20 | disposition home or self-care (01) ==
LOC: M ED 11:01
DX: E10.65 Type 1 diabetes mellitus with hyperglycemia (principal); R11.2 Nausea with vomiting, unspecified; I10 Essential (primary) hypertension; F41.9 Anxiety disorder, unspecified; F32.A Depression, unspecified; F12.10 Cannabis abuse, uncomplicated; Z88.8 Allergy status to other drugs, medicaments and biological substances; Z79.1 Long term (current) use of non-steroidal anti-inflammatories (NSAID); Z79.51 Long term (current) use of inhaled steroids; Z79.4 Long term (current) use of insulin; Z79.899 Other long term (current) drug therapy
CPT/HCPCS: 80047; 80076; 81001; 82010; 82803; 83036; 83690; 83735; 83930; 84100; 85025; 87086; 93005; 93041; 94760; 96361; 96374; 96375; 99285; J1815; J2550

== ENCOUNTER 2024-02-28 16:16 | Emergency (ER) | payer OTHER ==
[~2024-02-28] VITALS: Ht 154.9 cm; Wt 61.4 kg
[~2024-02-28 16:16] MED LIST changes: +PROM1SUP2 PR
[2024-02-28 16:32] VITALS: TEMP 97.8
[2024-02-28 16:55] LABS: VENOUS BASE EXCESS -1.4 (-2.0-2.0); VENOUS HCO3 20.7 MMOL/L (23.0-27.0); VENOUS O2 SATURATION 99.4 % (60.0-80.0); VENOUS PH 7.486 UNITS (7.330-7.430); VENOUS STANDARD HCO3 23.4 MMOL/L; VENOUS TOTAL CO2 21.5 MMOL/L (24.0-28.0)
[2024-02-28] MEDS: MORPHINE 2 MG/ML 1ML VIAL IV ONE ×2 (17:00→19:19)
[2024-02-28] MEDS: NS 1,000 ML IV ONE (17:00)
[2024-02-28 17:20] LABS: BASO # 0.1 10^3/uL (0.0-0.2); BASO % 0.5 % (0.0-1.0); EOS % 0.1 % (0.0-3.0); HEMATOCRIT 38.6 % (36.0-47.0); LYMPH # 1.2 10^3/uL (1.5-5.0); LYMPH % 8.1 % (24.0-44.0); MEAN CORPUSCULAR HEMOGLOBIN 28.6 pg (27.0-33.0); MEAN CORPUSCULAR HGB CONC 33.7 g/dl (32.0-36.5); MONO # 0.7 10^3/uL (0.0-0.8); MONO % 4.7 % (2.0-8.0); NEUTROPHILS # 12.9 10^3/uL (1.5-8.5); NEUTROPHILS % 86.2 % (36.0-66.0); RED BLOOD COUNT 4.54 10^6/uL (4.00-5.40)
[2024-02-28 18:28] LABS: HEMOGLOBIN A1c 8.7 % (4.0-6.0)
[2024-02-28 18:55] LABS: LIPASE 43 U/L (12-53)
[2024-02-28 19:02] LABS: ACETONE/KETONE 3.08 MMOL/L (0.02-0.27)
[2024-02-28 19:05] LABS: ALBUMIN 4.1 G/DL (3.2-5.2); ALKALINE PHOSPHATASE 92 U/L (46-116); ALT/SGPT 32 U/L (7.0-40); AST/SGOT 21 U/L (<34); BILIRUBIN,DIRECT 0.2 MG/DL (<0.4); BILIRUBIN,TOTAL 0.5 MG/DL (0.3-1.2); BLOOD UREA NITROGEN 9 MG/DL (9-23); CALCIUM LEVEL 8.4 MG/DL (8.5-10.1); CARBON DIOXIDE LEVEL 21 MMOL/L (20-31); CHLORIDE LEVEL 103 MMOL/L (98-107); CREATININE FOR GFR 0.47 MG/DL (0.55-1.30); GLOMERULAR FILTRATION RATE > 60.0 (>58); GLUCOSE, FASTING 400 MG/DL (60-100); MAGNESIUM LEVEL 1.7 MG/DL (1.8-2.4); POTASSIUM SERUM 3.9 MMOL/L (3.5-5.1); SODIUM LEVEL 136 MMOL/L (136-145); TOTAL PROTEIN 6.9 G/DL (5.7-8.2)
[2024-02-28] MEDS: HumuLIN R (REGULAR) INSULIN (NovoLIN R) **100U/ML** PER UNIT IV ONE (19:18)
[2024-02-28 19:26] LABS: OSMOLALITY SERUM 307 MOSM/KG (275-295)
[2024-02-28 20:04] VITALS: BP 131/80
[2024-02-28] MEDS: LOSARTAN 25 MG TAB PO ONE (20:04)
[2024-02-28 21:00] VITALS: BP 162/87; O2SAT 98
[2024-02-28] MEDS: METOCLOPRAMIDE 10MG TAB PO ONE (21:19)
== END 2024-02-28 21:32 | disposition home or self-care (01) ==
LOC: M ED 16:16 → EDBD 16:16 → M ED 21:32
DX: E10.65 Type 1 diabetes mellitus with hyperglycemia (principal); K31.84 Gastroparesis; I10 Essential (primary) hypertension; E28.2 Polycystic ovarian syndrome; F41.9 Anxiety disorder, unspecified; F32.9 Major depressive disorder, single episode, unspecified; Z88.8 Allergy status to other drugs, medicaments and biological substances; Z79.52 Long term (current) use of systemic steroids; Z79.83 Long term (current) use of bisphosphonates; Z79.899 Other long term (current) drug therapy
CPT/HCPCS: 74018; 80048; 80076; 81001; 82010; 82803; 83036; 83690; 83735; 83930; 85025; 87086; 93005; 93041; 94760; 96361; 96374; 96375; 96376; 99285; J1815

== ENCOUNTER 2024-03-05 11:46 | Emergency (ER) | payer OTHER ==
[~2024-03-05] VITALS: Ht 154.9 cm; Wt 60.6 kg
[2024-03-05 13:44] LABS: BASO # 0.1 10^3/uL (0.0-0.2); BASO % 0.5 % (0.0-1.0); EOS # 0.1 10^3/uL (0.0-0.5); EOS % 1.2 % (0.0-3.0); HEMATOCRIT 41.3 % (36.0-47.0); HEMOGLOBIN 13.8 g/dl (12.0-15.5); LYMPH # 2.8 10^3/uL (1.5-5.0); LYMPH % 24.4 % (24.0-44.0); MEAN CORPUSCULAR HEMOGLOBIN 28.7 pg (27.0-33.0); MEAN CORPUSCULAR HGB CONC 33.4 g/dl (32.0-36.5); MEAN CORPUSCULAR VOLUME 85.9 fl (80.0-96.0); MONO # 0.5 10^3/uL (0.0-0.8); MONO % 4.4 % (2.0-8.0); NEUTROPHILS % 69.2 % (36.0-66.0); PLATELET COUNT, AUTOMATED 362 10^3/uL (150-450); RED BLOOD COUNT 4.81 10^6/uL (4.00-5.40); WHITE BLOOD COUNT 11.5 10^3/uL (4.0-10.0)
[2024-03-05] MEDS ORDERED: POLY510P14 (13:49)
[2024-03-05] MEDS ORDERED: AMLO5CAP53 PO (13:49)
[2024-03-05] MEDS ORDERED: AMOX875T2 PO (13:49)
[2024-03-05] MEDS ORDERED: METR-265 PO (13:49)
[2024-03-05] MEDS ORDERED: POTA-136 PO (13:49)
[2024-03-05 14:08] LABS: VENOUS BASE EXCESS 0.1 (-2.0-2.0); VENOUS HCO3 22.6 MMOL/L (23.0-27.0); VENOUS O2 SATURATION 97.2 % (60.0-80.0); VENOUS PH 7.481 UNITS (7.330-7.430); VENOUS STANDARD HCO3 24.6 MMOL/L; VENOUS TOTAL CO2 23.6 MMOL/L (24.0-28.0)
[2024-03-05] MEDS: ACETAMINOPHEN *IV* 1,000 MG in IV 1 EA IV ONE (14:12)
[2024-03-05] MEDS: ONDANSETRON 4MG 2ML VIAL IV ONE (14:13)
[2024-03-05] MEDS: NS 1,000 ML IV ONE (14:13)
[2024-03-05 14:20] LABS: ACETONE/KETONE 2.28 MMOL/L (0.02-0.27)
[2024-03-05 14:24] LABS: ALBUMIN 4.3 G/DL (3.2-5.2); ALKALINE PHOSPHATASE 82 U/L (46-116); ALT/SGPT 18 U/L (7.0-40); AST/SGOT 25 U/L (<34); BILIRUBIN,DIRECT 0.1 MG/DL (<0.4); BILIRUBIN,TOTAL 0.4 MG/DL (0.3-1.2); BLOOD UREA NITROGEN 9 MG/DL (9-23); CALCIUM LEVEL 9.9 MG/DL (8.5-10.1); CARBON DIOXIDE LEVEL 24 MMOL/L (20-31); CHLORIDE LEVEL 102 MMOL/L (98-107); CREATININE FOR GFR 0.48 MG/DL (0.55-1.30); GLOMERULAR FILTRATION RATE > 60.0 (>58); GLUCOSE, FASTING 242 MG/DL (60-100); LIPASE 35 U/L (12-53); POTASSIUM SERUM 5.2 MMOL/L (3.5-5.1); SODIUM LEVEL 133 MMOL/L (136-145); TOTAL PROTEIN 7.5 G/DL (5.7-8.2)
[2024-03-05] MEDS: KETOROLAC 30 MG/ML 1ML VIAL IV ONE (15:03)
[2024-03-05] MEDS: METOCLOPRAMIDE INJ 10MG/2ML VIAL IV ONE (15:24)
[2024-03-05] MEDS ORDERED: HYDROMORPHONE HCL 0.5 MG/ 0.5 ML SYRINGE IV ONE (15:45)
[2024-03-05] MEDS: diazePAM 10MG/2ML SYRINGE IV ONE (15:56)
[2024-03-05] MEDS: BISACODYL 10MG SUPP PR ONE (15:58)
[2024-03-05] MEDS ORDERED: COLA100C5 PO (16:29)
[2024-03-05 16:32] VITALS: BP 141/86; TEMP 98; O2SAT 98
[2024-03-05] MEDS: MAGNESIUM CITRATE 300ML BTL PO ONE (16:34)
== END 2024-03-05 16:38 | disposition home or self-care (01) ==
LOC: M ED 11:46
DX: K31.84 Gastroparesis (principal); K59.00 Constipation, unspecified; M54.50 Low back pain, unspecified; E10.9 Type 1 diabetes mellitus without complications; I10 Essential (primary) hypertension; F41.9 Anxiety disorder, unspecified; E28.2 Polycystic ovarian syndrome; Z88.8 Allergy status to other drugs, medicaments and biological substances; Z87.19 Personal history of other diseases of the digestive system; Z79.52 Long term (current) use of systemic steroids; Z79.83 Long term (current) use of bisphosphonates; Z79.899 Other long term (current) drug therapy
CPT/HCPCS: 74018; 80048; 80076; 81001; 82010; 82803; 83690; 85025; 87086; 96365; 96375; 99284; J0131; J1885; J2405; J2765; J3360

== ENCOUNTER 2024-05-06 12:41 | Emergency (ER) | payer OTHER ==
[~2024-05-06] VITALS: Ht 154.9 cm; Wt 61.4 kg
[~2024-05-06 12:41] MED LIST changes: +AMLO5CAP53 PO; +AMOX875T2 PO; +METR-265 PO; +POLY510P14; +POTA-136 PO
[2024-05-06 13:39] LABS: BASO # 0.1 10^3/uL (0.0-0.2); BASO % 0.5 % (0.0-1.0); EOS # 0.2 10^3/uL (0.0-0.5); HEMATOCRIT 38.6 % (36.0-47.0); LYMPH # 2.2 10^3/uL (1.5-5.0); LYMPH % 14.9 % (24.0-44.0); MEAN CORPUSCULAR HEMOGLOBIN 28.2 pg (27.0-33.0); MEAN CORPUSCULAR HGB CONC 33.7 g/dl (32.0-36.5); MEAN CORPUSCULAR VOLUME 83.7 fl (80.0-96.0); MONO # 0.6 10^3/uL (0.0-0.8); MONO % 3.7 % (2.0-8.0); NEUTROPHILS # 11.9 10^3/uL (1.5-8.5); NEUTROPHILS % 79.6 % (36.0-66.0); PLATELET COUNT, AUTOMATED 433 10^3/uL (150-450); RED BLOOD COUNT 4.61 10^6/uL (4.00-5.40)
[2024-05-06 14:03] LABS: LIPASE 53 U/L (12-53)
[2024-05-06 14:05] LABS: ALBUMIN 4.2 G/DL (3.2-5.2); ALKALINE PHOSPHATASE 83 U/L (35-104); ALT/SGPT 19 U/L (7.0-40); AST/SGOT < 8 U/L (<34); BILIRUBIN,DIRECT 0.2 MG/DL (<0.4); BILIRUBIN,TOTAL 0.5 MG/DL (0.3-1.2); BLOOD UREA NITROGEN 14 MG/DL (9-23); CALCIUM LEVEL 9.7 MG/DL (8.5-10.1); CARBON DIOXIDE LEVEL 21 MMOL/L (20-31); CHLORIDE LEVEL 109 MMOL/L (98-107); CREATININE FOR GFR 0.53 MG/DL (0.55-1.30); GLOMERULAR FILTRATION RATE > 60.0 (>58); GLUCOSE, FASTING 220 MG/DL (60-100); POTASSIUM SERUM 4.1 MMOL/L (3.5-5.1); SODIUM LEVEL 139 MMOL/L (136-145); TOTAL PROTEIN 7.3 G/DL (5.7-8.2)
[2024-05-06] MEDS: MORPHINE 4 MG/ML 1ML VIAL IV ONE ×2 (14:14→15:55)
[2024-05-06] MEDS: ONDANSETRON 4MG 2ML VIAL IV ONE (14:14)
[2024-05-06 15:09] LABS: ABG BASE EXCESS 0.3 (-2.0-2.0); ABG HCO3 20.7 MMOL/L (22.0-26.0); ABG O2 SATURATION 98.7 % (95.0-99.0); ABG PARTIAL PRESSURE CO2 23.3 mmHg (35.0-45.0); ABG PARTIAL PRESSURE O2 112.9 mmHg (75.0-100.0); ABG STANDARD HCO3 24.8 MMOL/L. (22.0-26.0); ABG TOTAL CO2 21.4 MMOL/L (22.0-29.0); ABG pH (ARTERIAL) 7.566 UNITS (7.350-7.450)
[2024-05-06 15:48] VITALS: TEMP 98.7
[2024-05-06] MEDS: FAMOTIDINE 20 MG TAB PO ONE (15:55)
[2024-05-06] MEDS: METOCLOPRAMIDE INJ 10MG/2ML VIAL IV ONE (15:55)
[2024-05-06] MEDS: PANTOPRAZOLE 40MG VIAL IV ONE (15:55)
[2024-05-06] MEDS: SUCRALFATE 1 GM TAB PO ONE (15:55)
[2024-05-06] MEDS ORDERED: ISOVUE-370 76% 100ML VIAL As Ordered ONE (16:07)
[2024-05-06] MEDS: NS 1,000 ML IV ONE (17:33)
[2024-05-06] MEDS ORDERED: MIRA3350 PO (19:42)
[2024-05-06] MEDS ORDERED: ONDA-282 PO (19:42)
[2024-05-06 20:23] VITALS: BP 112/62; O2SAT 99
== END 2024-05-06 20:25 | disposition home or self-care (01) ==
LOC: EDBD 12:41 → M ED 12:41
DX: R10.9 Unspecified abdominal pain (principal); R11.2 Nausea with vomiting, unspecified; K59.00 Constipation, unspecified; I10 Essential (primary) hypertension; R51.9 Headache, unspecified; Z87.442 Personal history of urinary calculi; Z87.42 Personal history of other diseases of the female genital tract; Z90.49 Acquired absence of other specified parts of digestive tract; Z88.8 Allergy status to other drugs, medicaments and biological substances; Z79.52 Long term (current) use of systemic steroids; Z79.4 Long term (current) use of insulin; Z79.83 Long term (current) use of bisphosphonates; Z79.899 Other long term (current) drug therapy
CPT/HCPCS: 36600; 74177; 80048; 80076; 81000; 81015; 82803; 83690; 85025; 87086; 96374; 96375; 96376; 99284; J2405; J2470; J2765; Q9967

== ENCOUNTER 2024-05-10 16:52 | Emergency (ER) | payer OTHER ==
[~2024-05-10] VITALS: Ht 154.9 cm; Wt 58.8 kg
[~2024-05-10 16:52] MED LIST changes: -POLY510P14; +POLY510P14 PO
[2024-05-10 16:59] VITALS: BP 165/99; TEMP 98.1; O2SAT 99
[2024-05-10 17:36] LABS: BASO # 0.1 10^3/uL (0.0-0.2); BASO % 0.8 % (0.0-1.0); EOS # 0.1 10^3/uL (0.0-0.5); EOS % 1.3 % (0.0-3.0); HEMATOCRIT 39.8 % (36.0-47.0); HEMOGLOBIN 13.2 g/dl (12.0-15.5); LYMPH # 3.1 10^3/uL (1.5-5.0); LYMPH % 33.8 % (24.0-44.0); MEAN CORPUSCULAR HEMOGLOBIN 27.6 pg (27.0-33.0); MEAN CORPUSCULAR HGB CONC 33.2 g/dl (32.0-36.5); MEAN CORPUSCULAR VOLUME 83.1 fl (80.0-96.0); MONO # 0.5 10^3/uL (0.0-0.8); MONO % 5.7 % (2.0-8.0); NEUTROPHILS # 5.4 10^3/uL (1.5-8.5); NEUTROPHILS % 58.2 % (36.0-66.0); PLATELET COUNT, AUTOMATED 469 10^3/uL (150-450); RED BLOOD COUNT 4.79 10^6/uL (4.00-5.40); WHITE BLOOD COUNT 9.2 10^3/uL (4.0-10.0)
[2024-05-10 18:02] LABS: BLOOD UREA NITROGEN 12 MG/DL (9-23); CALCIUM LEVEL 9.6 MG/DL (8.5-10.1); CARBON DIOXIDE LEVEL 23 MMOL/L (20-31); CHLORIDE LEVEL 104 MMOL/L (98-107); CREATININE FOR GFR 0.57 MG/DL (0.55-1.30); GLOMERULAR FILTRATION RATE > 60.0 (>58); GLUCOSE, FASTING 155 MG/DL (60-100); POTASSIUM SERUM 3.5 MMOL/L (3.5-5.1); SODIUM LEVEL 140 MMOL/L (136-145)
== END 2024-05-10 18:47 | disposition left against medical advice (07) ==
LOC: M ED 16:52
DX: Z53.21 Procedure and treatment not carried out due to patient leaving prior to being seen by health care provider (principal)

== ENCOUNTER 2024-05-10 22:11 | Observation (INO) | payer OTHER ==
[~2024-05-10] VITALS: Ht 154.9 cm; Wt 58.8 kg
[2024-05-10 22:39] LABS: APPEARANCE, URINE HAZY (CLEAR); BACTERIA, URINE AUTO NEGATIVE (NEGATIVE); BILIRUBIN, URINE AUTO NEGATIVE (NEGATIVE); BLOOD, URINE BLOOD 2+ (NEGATIVE); COLOR, URINE YELLOW (YELLOW); GLUCOSE, URINE (UA) AUTO 3+ mg/dL (NEGATIVE); KETONE, URINE AUTO 2+ mg/dL (NEGATIVE); LEUKOCYTE ESTERASE, URINE AUTO NEGATIVE (NEGATIVE); MUCUS, URINE SMALL (NEGATIVE); NITRITE, URINE AUTO NEGATIVE (NEGATIVE); PROTEIN, URINE AUTO 1+ mg/dL (NEGATIVE); RBC, URINE AUTO 11 /HPF (0-3); SPECIFIC GRAVITY URINE AUTO 1.029 (1.002-1.035); SQUAMOUS EPITHELIAL CELL UR AU 3 /HPF (0-6); UROBILINOGEN, URINE AUTO 0.2 mg/dL (0.0-2.0); WBC, URINE AUTO 6 /HPF (0-3)
[2024-05-11] MEDS ORDERED: ONDANSETRON 4MG 2ML VIAL IV ONE (01:35)
[2024-05-11] MEDS ORDERED: PANTOPRAZOLE 40MG VIAL IV ONE (01:35)
[2024-05-11] MEDS: ONDANSETRON 4MG ORAL DISINTEGRATING TAB PO ONE (01:56)
[2024-05-11] MEDS: PANTOPRAZOLE 40MG TAB (PROTONIX) PO ONE (01:56)
[2024-05-11] MEDS: MORPHINE 2 MG/ML 1ML VIAL IV ONE (03:42)
[2024-05-11] MEDS: GASTROGRAFIN SOLUTION 30ML PO SCH (03:56)
[2024-05-11] MEDS: PROMETHAZINE 25MG/ML 1ML VIAL IV ONE (03:59)
[2024-05-11 04:13] LABS: LIPASE 38 U/L (12-53)
[2024-05-11 04:15] LABS: ALBUMIN 3.8 G/DL (3.2-5.2); ALKALINE PHOSPHATASE 64 U/L (35-104); ALT/SGPT 10 U/L (7.0-40); AST/SGOT < 8 U/L (<34); BILIRUBIN,TOTAL 0.5 MG/DL (0.3-1.2); BLOOD UREA NITROGEN 12 MG/DL (9-23); CALCIUM LEVEL 9.3 MG/DL (8.5-10.1); CARBON DIOXIDE LEVEL 23 MMOL/L (20-31); CHLORIDE LEVEL 105 MMOL/L (98-107); CREATININE FOR GFR 0.59 MG/DL (0.55-1.30); GLOMERULAR FILTRATION RATE > 60.0 (>58); GLUCOSE, FASTING 208 MG/DL (60-100); POTASSIUM SERUM 3.5 MMOL/L (3.5-5.1); SODIUM LEVEL 137 MMOL/L (136-145); TOTAL PROTEIN 6.4 G/DL (5.7-8.2)
[2024-05-11] MEDS: MORPHINE 4 MG/ML 1ML VIAL IV ONE (05:00)
[2024-05-11] MEDS ORDERED: ISOVUE-370 76% 100ML VIAL As Ordered ONE (05:30)
[2024-05-11] MEDS: PIPERACILLIN/TAZOBACTAM SOD 4.5 GM in DEXTROSE 5% (D5W) ADV/MINI-BAG 50 ML IV ONE (06:30)
[2024-05-11 07:06] LABS: BASO # 0.1 10^3/uL (0.0-0.2); BASO % 0.6 % (0.0-1.0); EOS # 0.1 10^3/uL (0.0-0.5); EOS % 1.1 % (0.0-3.0); HEMATOCRIT 35.2 % (36.0-47.0); LYMPH # 4.1 10^3/uL (1.5-5.0); LYMPH % 38.2 % (24.0-44.0); MEAN CORPUSCULAR HEMOGLOBIN 28.4 pg (27.0-33.0); MEAN CORPUSCULAR HGB CONC 34.1 g/dl (32.0-36.5); MEAN CORPUSCULAR VOLUME 83.4 fl (80.0-96.0); MONO # 0.7 10^3/uL (0.0-0.8); MONO % 6.5 % (2.0-8.0); NEUTROPHILS # 5.8 10^3/uL (1.5-8.5); NEUTROPHILS % 53.4 % (36.0-66.0); PLATELET COUNT, AUTOMATED 416 10^3/uL (150-450); RED BLOOD COUNT 4.22 10^6/uL (4.00-5.40); WHITE BLOOD COUNT 10.8 10^3/uL (4.0-10.0)
[2024-05-11] MEDS ORDERED: HOME MED LIST COMPLETE! XX SCH (08:20)
[2024-05-11] MEDS: KETOROLAC 30 MG/ML 1ML VIAL IV ONE ×2 (08:33→22:10)
[2024-05-11] MEDS: LOSARTAN 25 MG TAB PO SCH (09:00)
[2024-05-11] MEDS ORDERED: MAALOX 30 ML SUSP *UDC PO PRN (12:10)
[2024-05-11] MEDS: LR 1,000 ML IV ONE (12:15)
[2024-05-11] MEDS ORDERED: GLUCAGON INJ 1MG VIAL SC PRN (12:30)
[2024-05-11] MEDS ORDERED: DEXTROSE 50% 50ML SYRINGE IV PRN (12:30)
[2024-05-11] MEDS ORDERED: GLUCOSE 4 GM CHEW PO PRN (12:30)
[2024-05-11] MEDS: MORPHINE 2 MG/ML 1ML VIAL IV PRN ×2 (13:23→16:14)
[2024-05-11] MEDS: ONDANSETRON 4MG 2ML VIAL IV PRN (13:24)
[2024-05-11] MEDS: PIPERACILLIN/TAZOBACTAM SOD 4.5 GM in DEXTROSE 5% (D5W) ADV/MINI-BAG 50 ML IV SCH (14:50)
[2024-05-11] MEDS: PARoxetine 20MG TABLET PO SCH (14:50)
[2024-05-11 15:45] VITALS: BP 105/67; TEMP 98.4; O2SAT 99
[2024-05-11] MEDS: INSULIN LISPRO (NovoLOG) PER UNIT SC SCH ×2 (17:05→21:00)
[2024-05-11 20:38] VITALS: BP 110/69; TEMP 98.2; O2SAT 92
[2024-05-11] MEDS: LEVEMIR (INSULIN DETEMIR) 1 UNITS/0.01ML SC SCH (21:08)
[2024-05-12 03:55] VITALS: BP 115/67; TEMP 98.2; O2SAT 100
[2024-05-12 07:13] LABS: ALBUMIN 3.6 G/DL (3.2-5.2); ALKALINE PHOSPHATASE 59 U/L (35-104); ALT/SGPT 12 U/L (7.0-40); AST/SGOT < 8 U/L (<34); BILIRUBIN,TOTAL 0.2 MG/DL (0.3-1.2); BLOOD UREA NITROGEN 15 MG/DL (9-23); CALCIUM LEVEL 9.5 MG/DL (8.5-10.1); CARBON DIOXIDE LEVEL 29 MMOL/L (20-31); CHLORIDE LEVEL 102 MMOL/L (98-107); CREATININE FOR GFR 0.68 MG/DL (0.55-1.30); GLOMERULAR FILTRATION RATE > 60.0 (>58); GLUCOSE, FASTING 114 MG/DL (60-100); POTASSIUM SERUM 3.4 MMOL/L (3.5-5.1); SODIUM LEVEL 140 MMOL/L (136-145); TOTAL PROTEIN 6.2 G/DL (5.7-8.2)
[2024-05-12] MEDS: POTASSIUM CHLORIDE 10% LIQ 20MEQ/15ML UDC PO SCH (09:05)
[2024-05-12] MEDS: PANTOPRAZOLE 40MG VIAL IV SCH (09:05)
[2024-05-12 09:08] VITALS: BP 121/76
[2024-05-12 09:08] LABS: HEMATOCRIT 37.2 % (36.0-47.0); HEMOGLOBIN 12.4 g/dl (12.0-15.5); MEAN CORPUSCULAR HEMOGLOBIN 28.3 pg (27.0-33.0); MEAN CORPUSCULAR HGB CONC 33.3 g/dl (32.0-36.5); MEAN CORPUSCULAR VOLUME 84.9 fl (80.0-96.0); PLATELET COUNT, AUTOMATED 386 10^3/uL (150-450); RED BLOOD COUNT 4.38 10^6/uL (4.00-5.40); WHITE BLOOD COUNT 8.3 10^3/uL (4.0-10.0)
[2024-05-12] MEDS ORDERED: ONDA-282 PO (11:47)
[2024-05-13] MEDS ORDERED: MIRA3350 PO (21:59)
== END 2024-05-12 11:25 | disposition home or self-care (01) ==
LOC: M ED 22:11 → EDBD 22:11 → M ED INP 05-11 12:09 → M MS5PR 05-11 15:41
PROVIDERS: ADMIT Student in an Organized Health Care Education/Training Program; ATTEND Student in an Organized Health Care Education/Training Program
DX: K51.018 Ulcerative (chronic) pancolitis with other complication (principal); K52.9 Noninfective gastroenteritis and colitis, unspecified; K31.84 Gastroparesis; F32.A Depression, unspecified; I10 Essential (primary) hypertension; G43.909 Migraine, unspecified, not intractable, without status migrainosus; E11.9 Type 2 diabetes mellitus without complications; N39.0 Urinary tract infection, site not specified; Z79.4 Long term (current) use of insulin; Z79.899 Other long term (current) drug therapy; Z88.8 Allergy status to other drugs, medicaments and biological substances
CPT/HCPCS: 36415; 74177; 76775; 80053; 81001; 83605; 83690; 85025; 85027; 96361; 96365; 96366; 96375; 96376; 99285; J1815; J1885; J2405; J2470; J2543; J2550; Q9963; Q9967

== ENCOUNTER 2024-05-13 15:56 | Emergency (ER) | payer OTHER ==
[~2024-05-13] VITALS: Ht 154.9 cm; Wt 60.8 kg
[2024-05-13 16:51] LABS: BASO # 0.1 10^3/uL (0.0-0.2); BASO % 0.8 % (0.0-1.0); EOS # 0.2 10^3/uL (0.0-0.5); EOS % 1.9 % (0.0-3.0); HEMATOCRIT 36.8 % (36.0-47.0); HEMOGLOBIN 12.5 g/dl (12.0-15.5); LYMPH # 3.4 10^3/uL (1.5-5.0); LYMPH % 27.1 % (24.0-44.0); MEAN CORPUSCULAR HEMOGLOBIN 28.2 pg (27.0-33.0); MEAN CORPUSCULAR VOLUME 83.1 fl (80.0-96.0); MONO # 0.7 10^3/uL (0.0-0.8); MONO % 5.9 % (2.0-8.0); NEUTROPHILS % 64.1 % (36.0-66.0); PLATELET COUNT, AUTOMATED 454 10^3/uL (150-450); RED BLOOD COUNT 4.43 10^6/uL (4.00-5.40); WHITE BLOOD COUNT 12.5 10^3/uL (4.0-10.0)
[2024-05-13] MEDS ORDERED: ISOVUE-370 76% 100ML VIAL As Ordered ONE (17:18)
[2024-05-13 17:19] LABS: INR 0.98; PARTIAL THROMBOPLASTIN TIME 27.5 SECONDS (24.8-34.2); PROTHROMBIN TIME 13.3 SECONDS (12.5-14.5)
[2024-05-13 17:23] LABS: LIPASE 45 U/L (12-53)
[2024-05-13 17:29] LABS: ETHYL ALCOHOL (ETHANOL) 0.006 % (0.000-0.010); HCG, SERUM QUALITATIVE NEGATIVE (NEGATIVE)
[2024-05-13 17:30] LABS: AMYLASE 57 U/L (30-118); SALICYLATE LEVEL < 3.0 MG/DL (<30)
[2024-05-13] MEDS: MORPHINE 4 MG/ML 1ML VIAL IV ONE (17:34)
[2024-05-13] MEDS: HALOPERIDOL LACTATE 5MG/ML VIAL IM ONE (17:35)
[2024-05-13 17:45] LABS: VENOUS BASE EXCESS -1.9 (-2.0-2.0); VENOUS HCO3 20.3 MMOL/L (23.0-27.0); VENOUS O2 SATURATION 98.9 % (60.0-80.0); VENOUS PARTIAL PRESSURE CO2 27.5 mmHg (38.0-50.0); VENOUS PARTIAL PRESSURE O2 121.3 mmHg (30.0-50.0); VENOUS PH 7.485 UNITS (7.330-7.430); VENOUS TOTAL CO2 21.1 MMOL/L (24.0-28.0)
[2024-05-13 18:16] LABS: ACETONE/KETONE 2.02 MMOL/L (0.02-0.27); ALBUMIN 4.2 G/DL (3.2-5.2); ALKALINE PHOSPHATASE 68 U/L (35-104); ALT/SGPT 14 U/L (7.0-40); AST/SGOT < 8 U/L (<34); BILIRUBIN,DIRECT 0.2 MG/DL (<0.4); BILIRUBIN,TOTAL 0.5 MG/DL (0.3-1.2); BLOOD UREA NITROGEN 10 MG/DL (9-23); CALCIUM LEVEL 9.7 MG/DL (8.5-10.1); CARBON DIOXIDE LEVEL 22 MMOL/L (20-31); CHLORIDE LEVEL 103 MMOL/L (98-107); CREATININE FOR GFR 0.53 MG/DL (0.55-1.30); GLOMERULAR FILTRATION RATE > 60.0 (>58); GLUCOSE, FASTING 195 MG/DL (60-100); MAGNESIUM LEVEL 1.9 MG/DL (1.8-2.4); POTASSIUM SERUM 3.9 MMOL/L (3.5-5.1); SODIUM LEVEL 138 MMOL/L (136-145); TOTAL PROTEIN 7.4 G/DL (5.7-8.2)
[2024-05-13] MEDS: NS 1,000 ML IV ONE (18:30)
[2024-05-13] MEDS ORDERED: POLYETHYLENE GLYCOL (MIRALAX) 238GM BOTTLE PO ONE (18:35)
[2024-05-13 18:45] LABS: CK-MB VALUE MASS < 1.0 NG/ML (<3.6)
[2024-05-13 18:49] LABS: AMPHETAMINES LEVEL URINE NEGATIVE (NEGATIVE); BARBITURATES URINE NEGATIVE (NEGATIVE); BENZODIAZEPINES URINE NEGATIVE (NEGATIVE); COCAINE METABOLITE URINE NEGATIVE (NEGATIVE); PHENCYCLIDINE URINE NEGATIVE (NEGATIVE)
[2024-05-13 18:49] LABS: CPK CREATINE PHOSPHOKINASE 41 U/L (34-145); MB/CK RELATIVE INDEX 2.43 (< OR =4)
[2024-05-13 18:53] LABS: METHADONE URINE NEGATIVE (NEGATIVE)
[2024-05-13 18:58] LABS: CANNABINOIDS URINE POSITIVE (NEGATIVE); OPIATES URINE POSITIVE (NEGATIVE)
[2024-05-13] MEDS: MIRALAX *UNIT DOSE* 17GM PACKET PO ONE (20:11)
[2024-05-13] MEDS: BISACODYL 10MG SUPP PR ONE (20:11)
[2024-05-13] MEDS: MAGNESIUM CITRATE 300ML BTL PO ONE (20:12)
[2024-05-13] MEDS ORDERED: MIRA3350 PO (21:59)
[2024-05-13 22:12] VITALS: BP 118/71; TEMP 97.5; O2SAT 95
== END 2024-05-13 22:15 | disposition home or self-care (01) ==
LOC: M ED 15:56
DX: K59.00 Constipation, unspecified (principal); F12.188 Cannabis abuse with other cannabis-induced disorder; E10.9 Type 1 diabetes mellitus without complications; E28.2 Polycystic ovarian syndrome; R51.9 Headache, unspecified; Z87.42 Personal history of other diseases of the female genital tract; Z88.8 Allergy status to other drugs, medicaments and biological substances; Z79.83 Long term (current) use of bisphosphonates; Z79.899 Other long term (current) drug therapy; Z79.4 Long term (current) use of insulin
CPT/HCPCS: 74177; 80047; 80048; 80076; 80143; 80307; 81001; 82010; 82077; 82150; 82550; 82553; 82803; 83605; 83690; 83735; 84484; 84703; 85025; 85610; 85730; 93005; 96372; 96374; 99284; J1630; Q9967

== ENCOUNTER 2024-06-09 12:08 | Emergency (ER) | payer OTHER ==
[~2024-06-09] VITALS: Ht 154.9 cm; Wt 57.5 kg
[2024-06-09] MEDS: METOCLOPRAMIDE INJ 10MG/2ML VIAL IV ONE (13:06)
[2024-06-09] MEDS: MORPHINE 2 MG/ML 1ML VIAL IV ONE (13:07)
[2024-06-09] MEDS: NS 1,000 ML IV ONE (13:08)
[2024-06-09 13:14] LABS: VENOUS BASE EXCESS -4.7 (-2.0-2.0); VENOUS HCO3 18.6 MMOL/L (23.0-27.0); VENOUS O2 SATURATION 98.6 % (60.0-80.0); VENOUS PARTIAL PRESSURE CO2 29.6 mmHg (38.0-50.0); VENOUS PARTIAL PRESSURE O2 122.9 mmHg (30.0-50.0); VENOUS PH 7.417 UNITS (7.330-7.430); VENOUS STANDARD HCO3 20.6 MMOL/L; VENOUS TOTAL CO2 19.5 MMOL/L (24.0-28.0)
[2024-06-09 13:21] LABS: BASO % 0.4 % (0.0-1.0); HEMATOCRIT 35.3 % (36.0-47.0); HEMOGLOBIN 11.6 g/dl (12.0-15.5); LYMPH # 1.2 10^3/uL (1.5-5.0); LYMPH % 11.2 % (24.0-44.0); MEAN CORPUSCULAR HGB CONC 32.9 g/dl (32.0-36.5); MEAN CORPUSCULAR VOLUME 85.1 fl (80.0-96.0); MONO # 0.7 10^3/uL (0.0-0.8); MONO % 6.9 % (2.0-8.0); NEUTROPHILS # 8.4 10^3/uL (1.5-8.5); NEUTROPHILS % 81.3 % (36.0-66.0); PLATELET COUNT, AUTOMATED 417 10^3/uL (150-450); RED BLOOD COUNT 4.15 10^6/uL (4.00-5.40); WHITE BLOOD COUNT 10.4 10^3/uL (4.0-10.0)
[2024-06-09 13:34] LABS: LIPASE 37 U/L (12-53)
[2024-06-09] MEDS: HumuLIN R (REGULAR) INSULIN (NovoLIN R) **100U/ML** PER UNIT IV ONE ×2 (13:40→14:57)
[2024-06-09 13:41] LABS: OSMOLALITY SERUM 315 MOSM/KG (275-295)
[2024-06-09 13:54] LABS: HEMOGLOBIN A1c 9.6 % (4.0-6.0)
[2024-06-09 13:58] LABS: ACETONE/KETONE > 4.50 MMOL/L (0.02-0.27); ALBUMIN 4.2 G/DL (3.2-5.2); ALKALINE PHOSPHATASE 76 U/L (35-104); ALT/SGPT 21 U/L (7.0-40); AST/SGOT 15 U/L (<34); BILIRUBIN,DIRECT 0.2 MG/DL (<0.4); BILIRUBIN,TOTAL 0.5 MG/DL (0.3-1.2); BLOOD UREA NITROGEN 14 MG/DL (9-23); CALCIUM LEVEL 9.6 MG/DL (8.5-10.1); CARBON DIOXIDE LEVEL 20 MMOL/L (20-31); CHLORIDE LEVEL 104 MMOL/L (98-107); CREATININE FOR GFR 0.67 MG/DL (0.55-1.30); GLOMERULAR FILTRATION RATE > 60.0 (>58); GLUCOSE, FASTING 430 MG/DL (60-100); MAGNESIUM LEVEL 1.9 MG/DL (1.8-2.4); POTASSIUM SERUM 4.4 MMOL/L (3.5-5.1); SODIUM LEVEL 139 MMOL/L (136-145)
[2024-06-09 14:41] LABS: AMPHETAMINES LEVEL URINE NEGATIVE (NEGATIVE); BARBITURATES URINE NEGATIVE (NEGATIVE); BENZODIAZEPINES URINE NEGATIVE (NEGATIVE); COCAINE METABOLITE URINE NEGATIVE (NEGATIVE); METHADONE URINE NEGATIVE (NEGATIVE); PHENCYCLIDINE URINE NEGATIVE (NEGATIVE)
[2024-06-09 14:44] LABS: CANNABINOIDS URINE POSITIVE (NEGATIVE); OPIATES URINE POSITIVE (NEGATIVE)
[2024-06-09] MEDS: MORPHINE 2 MG/ML 1ML VIAL IV PRN (14:57)
[2024-06-09 16:13] LABS: VENOUS BASE EXCESS -1.4 (-2.0-2.0); VENOUS HCO3 23.1 MMOL/L (23.0-27.0); VENOUS PARTIAL PRESSURE CO2 37.9 mmHg (38.0-50.0); VENOUS PARTIAL PRESSURE O2 66.2 mmHg (30.0-50.0); VENOUS PH 7.403 UNITS (7.330-7.430); VENOUS STANDARD HCO3 23.3 MMOL/L; VENOUS TOTAL CO2 24.3 MMOL/L (24.0-28.0)
[2024-06-09 16:45] LABS: BLOOD UREA NITROGEN 11 MG/DL (9-23); CALCIUM LEVEL 8.8 MG/DL (8.5-10.1); CARBON DIOXIDE LEVEL 24 MMOL/L (20-31); CHLORIDE LEVEL 107 MMOL/L (98-107); CREATININE FOR GFR 0.65 MG/DL (0.55-1.30); GLOMERULAR FILTRATION RATE > 60.0 (>58); GLUCOSE, FASTING 257 MG/DL (60-100); POTASSIUM SERUM 3.8 MMOL/L (3.5-5.1); SODIUM LEVEL 139 MMOL/L (136-145)
[2024-06-09 17:40] VITALS: BP 121/62
[2024-06-09 17:45] VITALS: TEMP 98.9; O2SAT 99
[2024-06-09] MEDS: INSULIN LISPRO (NovoLOG) PER UNIT SC STA (17:50)
== END 2024-06-09 18:06 | disposition home or self-care (01) ==
LOC: M ED 12:08 → EDBD 12:08 → M ED 18:06
DX: E10.65 Type 1 diabetes mellitus with hyperglycemia (principal); R11.2 Nausea with vomiting, unspecified; I10 Essential (primary) hypertension; E28.2 Polycystic ovarian syndrome; M54.50 Low back pain, unspecified; F41.9 Anxiety disorder, unspecified; F32.9 Major depressive disorder, single episode, unspecified; F12.10 Cannabis abuse, uncomplicated; Z88.8 Allergy status to other drugs, medicaments and biological substances; Z87.442 Personal history of urinary calculi; Z79.52 Long term (current) use of systemic steroids; Z79.4 Long term (current) use of insulin; Z79.83 Long term (current) use of bisphosphonates; Z79.899 Other long term (current) drug therapy
CPT/HCPCS: 80047; 80048; 80076; 80307; 81001; 82010; 82803; 83036; 83690; 83735; 83930; 85025; 87486; 87581; 87633; 87798; 93005; 93041; 94760; 96361; 96374; 96375; 96376; 99285; J1815; J2765

== ENCOUNTER 2024-06-11 04:20 | Inpatient (IN) | payer OTHER ==
[~2024-06-11] VITALS: Ht 160 cm; Wt 59.2 kg
[2024-06-11] MEDS: NS 1,000 ML IV ONE ×2 (05:15→06:17)
[2024-06-11] MEDS: HumuLIN R (REGULAR) INSULIN (NovoLIN R) **100U/ML** PER UNIT IV ONE (05:16)
[2024-06-11 05:21] LABS: VENOUS BASE EXCESS -4.2 (-2.0-2.0); VENOUS HCO3 18.1 MMOL/L (23.0-27.0); VENOUS PARTIAL PRESSURE CO2 26.1 mmHg (38.0-50.0); VENOUS PARTIAL PRESSURE O2 144.7 mmHg (30.0-50.0); VENOUS PH 7.459 UNITS (7.330-7.430); VENOUS TOTAL CO2 18.9 MMOL/L (24.0-28.0)
[2024-06-11 05:28] LABS: BASO # 0.1 10^3/uL (0.0-0.2); BASO % 0.7 % (0.0-1.0); CK-MB VALUE MASS < 1.0 NG/ML (<3.6); EOS # 0.1 10^3/uL (0.0-0.5); EOS % 0.8 % (0.0-3.0); HEMATOCRIT 34.7 % (36.0-47.0); HEMOGLOBIN 11.3 g/dl (12.0-15.5); LIPASE 50 U/L (12-53); LYMPH # 2.1 10^3/uL (1.5-5.0); LYMPH % 13.3 % (24.0-44.0); MEAN CORPUSCULAR HEMOGLOBIN 27.8 pg (27.0-33.0); MEAN CORPUSCULAR HGB CONC 32.6 g/dl (32.0-36.5); MEAN CORPUSCULAR VOLUME 85.5 fl (80.0-96.0); MONO # 0.6 10^3/uL (0.0-0.8); MONO % 3.8 % (2.0-8.0); NEUTROPHILS # 12.6 10^3/uL (1.5-8.5); NEUTROPHILS % 81.1 % (36.0-66.0); PLATELET COUNT, AUTOMATED 432 10^3/uL (150-450); RED BLOOD COUNT 4.06 10^6/uL (4.00-5.40); WHITE BLOOD COUNT 15.5 10^3/uL (4.0-10.0)
[2024-06-11 05:42] LABS: PHENCYCLIDINE URINE NEGATIVE (NEGATIVE)
[2024-06-11 05:43] LABS: AMPHETAMINES LEVEL URINE NEGATIVE (NEGATIVE); BARBITURATES URINE NEGATIVE (NEGATIVE); BENZODIAZEPINES URINE NEGATIVE (NEGATIVE); COCAINE METABOLITE URINE NEGATIVE (NEGATIVE); METHADONE URINE NEGATIVE (NEGATIVE); OPIATES URINE NEGATIVE (NEGATIVE)
[2024-06-11 05:51] LABS: OSMOLALITY SERUM 314 MOSM/KG (275-295)
[2024-06-11 05:56] LABS: CANNABINOIDS URINE POSITIVE (NEGATIVE)
[2024-06-11 05:57] LABS: ACETONE/KETONE > 4.50 MMOL/L (0.02-0.27); ALKALINE PHOSPHATASE 70 U/L (35-104); ALT/SGPT 25 U/L (7.0-40); AST/SGOT 27 U/L (<34); BILIRUBIN,DIRECT 0.1 MG/DL (<0.4); BILIRUBIN,TOTAL 0.3 MG/DL (0.3-1.2); BLOOD UREA NITROGEN 14 MG/DL (9-23); CARBON DIOXIDE LEVEL 18 MMOL/L (20-31); CHLORIDE LEVEL 102 MMOL/L (98-107); CPK CREATINE PHOSPHOKINASE 51 U/L (34-145); CREATININE FOR GFR 0.69 MG/DL (0.55-1.30); GLOMERULAR FILTRATION RATE > 60.0 (>58); GLUCOSE, FASTING 492 MG/DL (60-100); MB/CK RELATIVE INDEX 1.96 (< OR =4); POTASSIUM SERUM 3.9 MMOL/L (3.5-5.1); SODIUM LEVEL 138 MMOL/L (136-145); TOTAL PROTEIN 6.7 G/DL (5.7-8.2)
[2024-06-11 06:04] LABS: HEMOGLOBIN A1c 9.5 % (4.0-6.0)
[2024-06-11] MEDS ORDERED: HumuLIN R (REGULAR) INSULIN (NovoLIN R) **100U/ML** PER UNIT IV ONE (06:10)
[2024-06-11] MEDS: ONDANSETRON 4MG 2ML VIAL IV ONE (06:13)
[2024-06-11] MEDS: MORPHINE 4 MG/ML 1ML VIAL IV ONE (06:14)
[2024-06-11] MEDS ORDERED: ISOVUE-370 76% 100ML VIAL As Ordered ONE (06:17)
[2024-06-11] MEDS ORDERED: INSULIN IV RATE CHANGE DOCUMENTATION ML/HR XX SCH ×2 (07:15→08:05)
[2024-06-11] MEDS: INSULIN REGULAR IN 0.9 % NACL 100 UNIT in IV 1 EA IV SCH ×2 (07:28→12:19)
[2024-06-11] MEDS: METOCLOPRAMIDE INJ 10MG/2ML VIAL IV ONE ×2 (07:33→17:04)
[2024-06-11] MEDS ORDERED: METO10TA3 PO (07:51)
[2024-06-11] MEDS ORDERED: VENTAER INH (07:51)
[2024-06-11] MEDS ORDERED: PANT40TA29 PO (07:51)
[2024-06-11] MEDS ORDERED: HOME MED LIST COMPLETE! XX SCH (07:55)
[2024-06-11] MEDS ORDERED: METOCLOPRAMIDE INJ 10MG/2ML VIAL IV PRN (09:00)
[2024-06-11] MEDS ORDERED: GLUCAGON INJ 1MG VIAL SC PRN (09:10)
[2024-06-11] MEDS ORDERED: ALBUTEROL 90 MCG/ACT 8GM HFA INHALER INH PRN (09:10)
[2024-06-11] MEDS ORDERED: GLUCOSE 4 GM CHEW PO PRN (09:10)
[2024-06-11] MEDS ORDERED: SCOPOLAMINE 1MG TRANSDERMAL PATCH TOP PRN (09:10)
[2024-06-11] MEDS ORDERED: DEXTROSE 50% 50ML SYRINGE IV PRN (09:10)
[2024-06-11] MEDS: fentaNYL 100 MCG/2 ML INJECTION IV PRN (09:38)
[2024-06-11] MEDS: PANTOPRAZOLE 40MG VIAL IV SCH (09:39)
[2024-06-11] MEDS: LOSARTAN 25 MG TAB PO SCH (09:39)
[2024-06-11] MEDS ORDERED: KCL 40MEQ IN D5/0.45NS 1000ML 1,000 ML IV SCH (10:00)
[2024-06-11] MEDS: D10W 1,000 ML IV SCH (10:01)
[2024-06-11] MEDS: KCL 40MEQ IN D5/0.45NS 1000ML 1,000 ML IV SCH (10:39)
[2024-06-11 11:02] VITALS: BP 118/76; TEMP 98.5; O2SAT 99
[2024-06-11 12:00] VITALS: BP 124/64; TEMP 98.8; O2SAT 98
[2024-06-11 12:05] LABS: ALBUMIN 3.3 G/DL (3.2-5.2); BLOOD UREA NITROGEN 10 MG/DL (9-23); CALCIUM LEVEL 8.3 MG/DL (8.5-10.1); CARBON DIOXIDE LEVEL 26 MMOL/L (20-31); CHLORIDE LEVEL 103 MMOL/L (98-107); CREATININE FOR GFR 0.54 MG/DL (0.55-1.30); GLOMERULAR FILTRATION RATE > 60.0 (>58); GLUCOSE, FASTING 161 MG/DL (60-100); PHOSPHORUS LEVEL 2.7 MG/DL (2.5-4.9); POTASSIUM SERUM 3.5 MMOL/L (3.5-5.1); SODIUM LEVEL 137 MMOL/L (136-145)
[2024-06-11 13:00] VITALS: BP 109/71; O2SAT 98
[2024-06-11] MEDS: LEVEMIR (INSULIN DETEMIR) 1 UNITS/0.01ML SC SCH ×2 (13:20→21:18)
[2024-06-11] MEDS: POTASSIUM CHLORIDE 10MEQ SR TABLET PO ONE ×2 (13:20→17:07)
[2024-06-11] MEDS ORDERED: SUMAtriptan SUCCINATE 25 MG TAB PO PRN (14:40)
[2024-06-11] MEDS ORDERED: DOCUSATE SODIUM 100MG CAPSULE PO PRN (14:40)
[2024-06-11] MEDS: ONDANSETRON 4MG ORAL DISINTEGRATING TAB PO PRN (15:11)
[2024-06-11] MEDS: PARoxetine 20MG TABLET PO SCH (15:11)
[2024-06-11] MEDS: METOCLOPRAMIDE 10MG TAB PO PRN (15:11)
[2024-06-11] MEDS: NORCO, ANEXSIA 5/325MG TABLET (HYDROcodone/ACETAMINOPHEN) PO PRN (15:12)
[2024-06-11 16:51] LABS: BLOOD UREA NITROGEN 7 MG/DL (9-23); CALCIUM LEVEL 9.3 MG/DL (8.5-10.1); CARBON DIOXIDE LEVEL 26 MMOL/L (20-31); CHLORIDE LEVEL 101 MMOL/L (98-107); CREATININE FOR GFR 0.61 MG/DL (0.55-1.30); GLOMERULAR FILTRATION RATE > 60.0 (>58); GLUCOSE, FASTING 153 MG/DL (60-100); PHOSPHORUS LEVEL 2.1 MG/DL (2.5-4.9); SODIUM LEVEL 138 MMOL/L (136-145)
[2024-06-11] MEDS: INSULIN LISPRO (NovoLOG) PER UNIT SC SCH ×2 (17:53→21:18)
[2024-06-11] MEDS ORDERED: traMADol 50 MG TAB PO PRN (18:15)
[2024-06-11 20:00] VITALS: BP 107/58; TEMP 97.9; O2SAT 97
[2024-06-11] MEDS: ALPRAZolam 0.5 MG TAB PO PRN (21:23)
[2024-06-11] MEDS: POTASSIUM PHOSPHATE INJ 20 MMOL in D5W 250 ML IV ONE (21:36)
[2024-06-12 04:00] VITALS: BP 159/91; TEMP 98.1; O2SAT 98
[2024-06-12 04:42] LABS: HEMATOCRIT 34.3 % (36.0-47.0); HEMOGLOBIN 11.5 g/dl (12.0-15.5); MEAN CORPUSCULAR HGB CONC 33.5 g/dl (32.0-36.5); MEAN CORPUSCULAR VOLUME 83.5 fl (80.0-96.0); PLATELET COUNT, AUTOMATED 383 10^3/uL (150-450); RED BLOOD COUNT 4.11 10^6/uL (4.00-5.40); WHITE BLOOD COUNT 8.2 10^3/uL (4.0-10.0)
[2024-06-12 05:13] LABS: ALBUMIN 3.2 G/DL (3.2-5.2); ALKALINE PHOSPHATASE 62 U/L (35-104); ALT/SGPT 19 U/L (7.0-40); AST/SGOT < 8 U/L (<34); BILIRUBIN,TOTAL 0.3 MG/DL (0.3-1.2); BLOOD UREA NITROGEN 8 MG/DL (9-23); CALCIUM LEVEL 9.2 MG/DL (8.5-10.1); CARBON DIOXIDE LEVEL 29 MMOL/L (20-31); CHLORIDE LEVEL 104 MMOL/L (98-107); CREATININE FOR GFR 0.54 MG/DL (0.55-1.30); GLOMERULAR FILTRATION RATE > 60.0 (>58); GLUCOSE, FASTING 91 MG/DL (60-100); PHOSPHORUS LEVEL 4.2 MG/DL (2.5-4.9); POTASSIUM SERUM 3.6 MMOL/L (3.5-5.1); SODIUM LEVEL 138 MMOL/L (136-145)
[2024-06-12 07:00] VITALS: BP 134/95; O2SAT 98
[2024-06-12 08:00] VITALS: BP 135/77; TEMP 98.2; O2SAT 99
[2024-06-12 08:21] VITALS: BP 135/77
[2024-06-12] MEDS: PANTOPRAZOLE 40MG TAB (PROTONIX) PO SCH (08:21)
[2024-06-12] MEDS: ENOXAPARIN 40MG/0.4ML SYRINGE (J1650 PER 10MG) SC SCH (08:23)
== END 2024-06-12 11:30 | disposition home or self-care (01) | DRG 420 ==
LOC: M ED 04:20 → M ED INP 07:57 → M ICU 10:50
PROVIDERS: ADMIT Internal Medicine Pulmonary Disease; ATTEND Internal Medicine
DX: E11.10 Type 2 diabetes mellitus with ketoacidosis without coma (principal); K31.84 Gastroparesis; I10 Essential (primary) hypertension; E78.5 Hyperlipidemia, unspecified; F12.188 Cannabis abuse with other cannabis-induced disorder; F39 Unspecified mood [affective] disorder; J45.909 Unspecified asthma, uncomplicated; M54.9 Dorsalgia, unspecified; N20.0 Calculus of kidney; Z79.4 Long term (current) use of insulin; G43.909 Migraine, unspecified, not intractable, without status migrainosus; E28.2 Polycystic ovarian syndrome; Z88.8 Allergy status to other drugs, medicaments and biological substances; Z79.899 Other long term (current) drug therapy; Z87.891 Personal history of nicotine dependence; E11.43 Type 2 diabetes mellitus with diabetic autonomic (poly)neuropathy

== ENCOUNTER 2024-06-12 23:48 | Emergency (ER) | payer OTHER ==
[~2024-06-12] VITALS: Ht 154.9 cm; Wt 58.2 kg
[~2024-06-12 23:48] MED LIST changes: +METO10TA3 PO; +PANT40TA29 PO; +VENTAER INH
[2024-06-13 00:32] LABS: VENOUS BASE EXCESS 1.7 (-2.0-2.0); VENOUS HCO3 22.9 MMOL/L (23.0-27.0); VENOUS O2 SATURATION 99.4 % (60.0-80.0); VENOUS PARTIAL PRESSURE CO2 26.7 mmHg (38.0-50.0); VENOUS PARTIAL PRESSURE O2 180.7 mmHg (30.0-50.0); VENOUS PH 7.551 UNITS (7.330-7.430); VENOUS TOTAL CO2 23.7 MMOL/L (24.0-28.0)
[2024-06-13 00:38] LABS: LIPASE 52 U/L (12-53)
[2024-06-13 00:39] LABS: BASO # 0.1 10^3/uL (0.0-0.2); BASO % 0.6 % (0.0-1.0); EOS # 0.2 10^3/uL (0.0-0.5); EOS % 1.9 % (0.0-3.0); HEMATOCRIT 34.9 % (36.0-47.0); HEMOGLOBIN 11.8 g/dl (12.0-15.5); LYMPH # 2.2 10^3/uL (1.5-5.0); LYMPH % 21.1 % (24.0-44.0); MEAN CORPUSCULAR HEMOGLOBIN 27.9 pg (27.0-33.0); MEAN CORPUSCULAR HGB CONC 33.8 g/dl (32.0-36.5); MEAN CORPUSCULAR VOLUME 82.5 fl (80.0-96.0); MONO # 0.6 10^3/uL (0.0-0.8); MONO % 5.3 % (2.0-8.0); NEUTROPHILS # 7.5 10^3/uL (1.5-8.5); NEUTROPHILS % 70.9 % (36.0-66.0); PLATELET COUNT, AUTOMATED 445 10^3/uL (150-450); RED BLOOD COUNT 4.23 10^6/uL (4.00-5.40); WHITE BLOOD COUNT 10.5 10^3/uL (4.0-10.0)
[2024-06-13 00:46] LABS: ACETONE/KETONE 0.86 MMOL/L (0.02-0.27)
[2024-06-13 00:48] LABS: HCG, SERUM QUALITATIVE NEGATIVE (NEGATIVE)
[2024-06-13 00:49] LABS: ALBUMIN 3.7 G/DL (3.2-5.2); ALKALINE PHOSPHATASE 68 U/L (35-104); ALT/SGPT 18 U/L (7.0-40); AST/SGOT 8 U/L (<34); BILIRUBIN,DIRECT < 0.1 MG/DL (<0.4); BILIRUBIN,TOTAL 0.3 MG/DL (0.3-1.2); BLOOD UREA NITROGEN 11 MG/DL (9-23); CALCIUM LEVEL 9.6 MG/DL (8.5-10.1); CARBON DIOXIDE LEVEL 24 MMOL/L (20-31); CHLORIDE LEVEL 102 MMOL/L (98-107); CREATININE FOR GFR 0.54 MG/DL (0.55-1.30); GLOMERULAR FILTRATION RATE > 60.0 (>58); GLUCOSE, FASTING 266 MG/DL (60-100); POTASSIUM SERUM 3.6 MMOL/L (3.5-5.1); SODIUM LEVEL 136 MMOL/L (136-145); TOTAL PROTEIN 6.8 G/DL (5.7-8.2)
[2024-06-13] MEDS: KETOROLAC 30 MG/ML 1ML VIAL IV ONE (01:03)
[2024-06-13] MEDS: LORazepam 2 MG/ML 1ML VIAL IV STA (01:04)
[2024-06-13] MEDS: HALOPERIDOL LACTATE 5MG/ML VIAL IV ONE (01:04)
[2024-06-13 01:14] LABS: AMPHETAMINES LEVEL URINE NEGATIVE (NEGATIVE); BARBITURATES URINE NEGATIVE (NEGATIVE); COCAINE METABOLITE URINE NEGATIVE (NEGATIVE); METHADONE URINE NEGATIVE (NEGATIVE); OPIATES URINE NEGATIVE (NEGATIVE); PHENCYCLIDINE URINE NEGATIVE (NEGATIVE)
[2024-06-13 01:16] LABS: BENZODIAZEPINES URINE POSITIVE (NEGATIVE); CANNABINOIDS URINE POSITIVE (NEGATIVE)
[2024-06-13 01:26] LABS: OSMOLALITY SERUM 295 MOSM/KG (275-295)
[2024-06-13 06:45] VITALS: BP 126/77; TEMP 97.8; O2SAT 98
== END 2024-06-13 07:39 | disposition home or self-care (01) ==
LOC: M ED 23:48 → EDBD 23:48 → M ED 06-13 07:39
DX: F12.19 Cannabis abuse with unspecified cannabis-induced disorder (principal); E10.9 Type 1 diabetes mellitus without complications; E28.2 Polycystic ovarian syndrome; I10 Essential (primary) hypertension; E78.5 Hyperlipidemia, unspecified; Z87.891 Personal history of nicotine dependence; Z88.8 Allergy status to other drugs, medicaments and biological substances; Z79.1 Long term (current) use of non-steroidal anti-inflammatories (NSAID); Z79.52 Long term (current) use of systemic steroids; Z79.83 Long term (current) use of bisphosphonates; Z79.899 Other long term (current) drug therapy
CPT/HCPCS: 80047; 80048; 80076; 80307; 81001; 82010; 82803; 83690; 83930; 84703; 85025; 96374; 96375; 99285; J1630; J1885; J2060

== ENCOUNTER 2024-07-09 04:46 | Inpatient (IN) | payer OTHER ==
[~2024-07-09] VITALS: Ht 154.9 cm; Wt 58.4 kg
[2024-07-09 05:32] LABS: VENOUS BASE EXCESS -3.9 (-2.0-2.0); VENOUS HCO3 18.9 MMOL/L (23.0-27.0); VENOUS O2 SATURATION 99.3 % (60.0-80.0); VENOUS PARTIAL PRESSURE CO2 28.4 mmHg (38.0-50.0); VENOUS PARTIAL PRESSURE O2 163.1 mmHg (30.0-50.0); VENOUS PH 7.441 UNITS (7.330-7.430); VENOUS STANDARD HCO3 21.3 MMOL/L; VENOUS TOTAL CO2 19.8 MMOL/L (24.0-28.0)
[2024-07-09 05:38] LABS: BASO # 0.1 10^3/uL (0.0-0.2); BASO % 0.6 % (0.0-1.0); EOS # 0.1 10^3/uL (0.0-0.5); EOS % 0.6 % (0.0-3.0); HEMOGLOBIN 12.3 g/dl (12.0-15.5); MEAN CORPUSCULAR HEMOGLOBIN 27.5 pg (27.0-33.0); MEAN CORPUSCULAR HGB CONC 33.2 g/dl (32.0-36.5); MEAN CORPUSCULAR VOLUME 82.6 fl (80.0-96.0); MONO # 0.6 10^3/uL (0.0-0.8); MONO % 3.4 % (2.0-8.0); NEUTROPHILS # 15.1 10^3/uL (1.5-8.5); PLATELET COUNT, AUTOMATED 399 10^3/uL (150-450); RED BLOOD COUNT 4.48 10^6/uL (4.00-5.40); WHITE BLOOD COUNT 17.9 10^3/uL (4.0-10.0)
[2024-07-09 05:59] LABS: LIPASE 54 U/L (12-53)
[2024-07-09 06:05] LABS: ALBUMIN 4.3 G/DL (3.2-5.2); ALKALINE PHOSPHATASE 91 U/L (35-104); ALT/SGPT 19 U/L (7.0-40); AST/SGOT 16 U/L (<34); BILIRUBIN,DIRECT 0.2 MG/DL (<0.4); BILIRUBIN,TOTAL 0.6 MG/DL (0.3-1.2); BLOOD UREA NITROGEN 18 MG/DL (9-23); CALCIUM LEVEL 9.4 MG/DL (8.5-10.1); CARBON DIOXIDE LEVEL 17 MMOL/L (20-31); CHLORIDE LEVEL 100 MMOL/L (98-107); GLOMERULAR FILTRATION RATE > 60.0 (>58); GLUCOSE, FASTING 487 MG/DL (60-100); POTASSIUM SERUM 4.3 MMOL/L (3.5-5.1); SODIUM LEVEL 134 MMOL/L (136-145); TOTAL PROTEIN 7.1 G/DL (5.7-8.2)
[2024-07-09] MEDS: MORPHINE 4 MG/ML 1ML VIAL IV ONE ×2 (06:20→08:45)
[2024-07-09] MEDS: ONDANSETRON 4MG 2ML VIAL IV ONE (06:20)
[2024-07-09] MEDS ORDERED: ISOVUE-370 76% 100ML VIAL As Ordered ONE (06:47)
[2024-07-09] MEDS: HumuLIN R (REGULAR) INSULIN (NovoLIN R) **100U/ML** PER UNIT IV ONE (08:44)
[2024-07-09] MEDS: METOCLOPRAMIDE INJ 10MG/2ML VIAL IV ONE (08:44)
[2024-07-09 08:53] LABS: MAGNESIUM LEVEL 1.8 MG/DL (1.8-2.4); PHOSPHORUS LEVEL 4.2 MG/DL (2.5-4.9)
[2024-07-09 08:59] LABS: ACETONE/KETONE > 4.50 MMOL/L (0.02-0.27)
[2024-07-09 09:14] LABS: HEMOGLOBIN A1c 9.9 % (4.0-6.0)
[2024-07-09] MEDS ORDERED: HOME MED LIST COMPLETE! XX SCH (13:40)
[2024-07-09] MEDS: NS 500 ML IV ONE (14:14)
[2024-07-09] MEDS: HYDROMORPHONE HCL 0.5 MG/ 0.5 ML SYRINGE IV ONE (14:14)
[2024-07-09 15:15] LABS: BLOOD UREA NITROGEN 18 MG/DL (9-23); CALCIUM LEVEL 9.4 MG/DL (8.5-10.1); CARBON DIOXIDE LEVEL 16 MMOL/L (20-31); CHLORIDE LEVEL 98 MMOL/L (98-107); CREATININE FOR GFR 0.49 MG/DL (0.55-1.30); GLOMERULAR FILTRATION RATE > 60.0 (>58); GLUCOSE, FASTING 466 MG/DL (60-100); SODIUM LEVEL 133 MMOL/L (136-145)
[2024-07-09 15:46] LABS: BLOOD UREA NITROGEN 18 MG/DL (9-23); CALCIUM LEVEL 8.5 MG/DL (8.5-10.1); CARBON DIOXIDE LEVEL 15 MMOL/L (20-31); CHLORIDE LEVEL 99 MMOL/L (98-107); CREATININE FOR GFR 0.55 MG/DL (0.55-1.30); GLOMERULAR FILTRATION RATE > 60.0 (>58); GLUCOSE, FASTING 339 MG/DL (60-100); POTASSIUM SERUM 4.8 MMOL/L (3.5-5.1); SODIUM LEVEL 133 MMOL/L (136-145)
[2024-07-09] MEDS ORDERED: ALBUTEROL SULFATE 2.5MG/0.5ML INH NEB SOLN NEB PRN (15:50)
[2024-07-09] MEDS ORDERED: ACETAMINOPHEN 325 MG TAB PO PRN (16:10)
[2024-07-09] MEDS: INSULIN REGULAR IN 0.9 % NACL 100 UNIT in IV 1 EA IV SCH (16:16)
[2024-07-09] MEDS: KCL 20MEQ IN 0.45NS 1000ML 1,000 ML IV SCH (16:33)
[2024-07-09 17:01] VITALS: BP 106/57; TEMP 97.6; O2SAT 97
[2024-07-09 17:15] LABS: BLOOD UREA NITROGEN 18 MG/DL (9-23); CALCIUM LEVEL 9.4 MG/DL (8.5-10.1); CARBON DIOXIDE LEVEL 15 MMOL/L (20-31); CHLORIDE LEVEL 97 MMOL/L (98-107); CREATININE FOR GFR 0.57 MG/DL (0.55-1.30); GLOMERULAR FILTRATION RATE > 60.0 (>58); GLUCOSE, FASTING 331 MG/DL (60-100); POTASSIUM SERUM 5.2 MMOL/L (3.5-5.1); SODIUM LEVEL 132 MMOL/L (136-145)
[2024-07-09 18:00] VITALS: BP 104/54; O2SAT 95
[2024-07-09] MEDS: INSULIN IV RATE CHANGE DOCUMENTATION ML/HR XX SCH (18:27)
[2024-07-09] MEDS: KCL 20MEQ IN D5/0.45NS 1000ML 1,000 ML IV SCH (18:35)
[2024-07-09] MEDS ORDERED: DOCUSATE SODIUM 100MG CAPSULE PO PRN (18:45)
[2024-07-09 19:00] VITALS: BP 99/53; O2SAT 97
[2024-07-09] MEDS: NORCO, ANEXSIA 5/325MG TABLET (HYDROcodone/ACETAMINOPHEN) PO PRN (19:04)
[2024-07-09] MEDS: PANTOPRAZOLE 40MG TAB (PROTONIX) PO SCH (19:04)
[2024-07-09 19:59] VITALS: BP 109/63; TEMP 98.4; O2SAT 98
[2024-07-09] MEDS: ALPRAZolam 0.25 MG TAB PO PRN (20:05)
[2024-07-09 20:26] LABS: BLOOD UREA NITROGEN 17 MG/DL (9-23); CALCIUM LEVEL 8.9 MG/DL (8.5-10.1); CARBON DIOXIDE LEVEL 21 MMOL/L (20-31); CHLORIDE LEVEL 102 MMOL/L (98-107); CREATININE FOR GFR 0.53 MG/DL (0.55-1.30); GLOMERULAR FILTRATION RATE > 60.0 (>58); GLUCOSE, FASTING 149 MG/DL (60-100); POTASSIUM SERUM 4.4 MMOL/L (3.5-5.1); SODIUM LEVEL 133 MMOL/L (136-145)
[2024-07-09] MEDS: INSULIN LISPRO (NovoLOG) PER UNIT SC SCH (21:00)
[2024-07-09] MEDS: LEVEMIR (INSULIN DETEMIR) 1 UNITS/0.01ML SC ONE (21:39)
[2024-07-09] MEDS: SUMAtriptan SUCCINATE 25 MG TAB PO PRN (22:22)
[2024-07-09 22:24] VITALS: BP 118/67
[2024-07-09 23:43] VITALS: BP 130/75; TEMP 98; O2SAT 97
[2024-07-10 03:28] VITALS: BP 128/65; TEMP 97.4; O2SAT 99
[2024-07-10 05:14] LABS: HEMATOCRIT 35.3 % (36.0-47.0); HEMOGLOBIN 11.6 g/dl (12.0-15.5); MEAN CORPUSCULAR HEMOGLOBIN 27.5 pg (27.0-33.0); MEAN CORPUSCULAR HGB CONC 32.9 g/dl (32.0-36.5); MEAN CORPUSCULAR VOLUME 83.6 fl (80.0-96.0); PLATELET COUNT, AUTOMATED 387 10^3/uL (150-450); RED BLOOD COUNT 4.22 10^6/uL (4.00-5.40); WHITE BLOOD COUNT 8.2 10^3/uL (4.0-10.0)
[2024-07-10] MEDS: ONDANSETRON 4MG ORAL DISINTEGRATING TAB PO PRN (05:28)
[2024-07-10 05:53] LABS: ACETONE/KETONE 2.72 MMOL/L (0.02-0.27)
[2024-07-10 05:55] LABS: ALBUMIN 3.8 G/DL (3.2-5.2); ALKALINE PHOSPHATASE 84 U/L (35-104); ALT/SGPT 16 U/L (7.0-40); AST/SGOT 13 U/L (<34); BILIRUBIN,TOTAL 0.6 MG/DL (0.3-1.2); BLOOD UREA NITROGEN 15 MG/DL (9-23); CALCIUM LEVEL 9.1 MG/DL (8.5-10.1); CARBON DIOXIDE LEVEL 22 MMOL/L (20-31); CHLORIDE LEVEL 103 MMOL/L (98-107); CREATININE FOR GFR 0.51 MG/DL (0.55-1.30); GLOMERULAR FILTRATION RATE > 60.0 (>58); GLUCOSE, FASTING 130 MG/DL (60-100); POTASSIUM SERUM 4.9 MMOL/L (3.5-5.1); SODIUM LEVEL 136 MMOL/L (136-145); TOTAL PROTEIN 6.7 G/DL (5.7-8.2)
[2024-07-10] MEDS: NORCO, ANEXSIA 5/325MG TABLET (HYDROcodone/ACETAMINOPHEN) PO ONE (05:59)
[2024-07-10] MEDS: INSULIN LISPRO (NovoLOG) PER UNIT SC SCH (07:45)
[2024-07-10 08:00] VITALS: BP 148/78; TEMP 98.1; O2SAT 99
[2024-07-10] MEDS ORDERED: ALPRAZolam 0.5 MG TAB PO PRN (08:05)
[2024-07-10] MEDS ORDERED: NORCO, ANEXSIA 5/325MG TABLET (HYDROcodone/ACETAMINOPHEN) PO PRN (08:05)
[2024-07-10] MEDS: ALPRAZolam 0.25 MG TAB PO ONE (08:15)
[2024-07-10] MEDS: PARoxetine 20MG TABLET PO SCH (08:15)
[2024-07-10] MEDS: ENOXAPARIN 40MG/0.4ML SYRINGE (J1650 PER 10MG) SC SCH (08:15)
[2024-07-10] MEDS: LEVEMIR (INSULIN DETEMIR) 1 UNITS/0.01ML SC SCH (08:16)
[2024-07-10] MEDS: METOCLOPRAMIDE 10MG TAB PO PRN (11:58)
[2024-07-10] MEDS: NORCO, ANEXSIA 5/325MG TABLET (HYDROcodone/ACETAMINOPHEN) PO PRN (11:58)
== END 2024-07-10 14:14 | disposition home or self-care (01) | DRG 420 ==
LOC: M ED 04:46 → M ED INP 15:50 → M ICU 16:52
PROVIDERS: ADMIT Internal Medicine Pulmonary Disease; ATTEND Internal Medicine Nephrology
DX: E10.10 Type 1 diabetes mellitus with ketoacidosis without coma (principal); K31.84 Gastroparesis; F11.20 Opioid dependence, uncomplicated; E10.43 Type 1 diabetes mellitus with diabetic autonomic (poly)neuropathy; F13.20 Sedative, hypnotic or anxiolytic dependence, uncomplicated; E28.2 Polycystic ovarian syndrome; E78.5 Hyperlipidemia, unspecified; F32.A Depression, unspecified; F41.9 Anxiety disorder, unspecified; G89.29 Other chronic pain; I10 Essential (primary) hypertension; J45.909 Unspecified asthma, uncomplicated; M54.9 Dorsalgia, unspecified; R10.9 Unspecified abdominal pain; Z79.4 Long term (current) use of insulin; N20.0 Calculus of kidney; F12.90 Cannabis use, unspecified, uncomplicated; Z91.198 Patient's noncompliance with other medical treatment and regimen for other reason; Z88.8 Allergy status to other drugs, medicaments and biological substances; Z79.899 Other long term (current) drug therapy; G43.909 Migraine, unspecified, not intractable, without status migrainosus; Z87.891 Personal history of nicotine dependence

== ENCOUNTER 2024-07-11 10:39 | Emergency (ER) | payer OTHER ==
[~2024-07-11] VITALS: Ht 154.9 cm; Wt 59.1 kg
[2024-07-11 10:49] VITALS: BP 108/68; TEMP 99.4; O2SAT 97
[2024-07-11] MEDS: MORPHINE 4 MG/ML 1ML VIAL IV ONE (12:11)
[2024-07-11] MEDS: ONDANSETRON 4MG 2ML VIAL IV ONE (12:13)
[2024-07-11 12:16] LABS: VENOUS BASE EXCESS 1.8 (-2.0-2.0); VENOUS HCO3 24.5 MMOL/L (23.0-27.0); VENOUS O2 SATURATION 81.9 % (60.0-80.0); VENOUS PH 7.489 UNITS (7.330-7.430); VENOUS STANDARD HCO3 25.7 MMOL/L; VENOUS TOTAL CO2 25.5 MMOL/L (24.0-28.0)
[2024-07-11 12:24] LABS: BASO # 0.1 10^3/uL (0.0-0.2); BASO % 0.5 % (0.0-1.0); EOS % 0.3 % (0.0-3.0); HEMATOCRIT 40.8 % (36.0-47.0); HEMOGLOBIN 13.5 g/dl (12.0-15.5); LYMPH # 2.2 10^3/uL (1.5-5.0); LYMPH % 17.3 % (24.0-44.0); MEAN CORPUSCULAR HEMOGLOBIN 27.2 pg (27.0-33.0); MEAN CORPUSCULAR HGB CONC 33.1 g/dl (32.0-36.5); MEAN CORPUSCULAR VOLUME 82.1 fl (80.0-96.0); MONO # 0.8 10^3/uL (0.0-0.8); MONO % 5.9 % (2.0-8.0); NEUTROPHILS # 9.8 10^3/uL (1.5-8.5); NEUTROPHILS % 75.8 % (36.0-66.0); PLATELET COUNT, AUTOMATED 471 10^3/uL (150-450); RED BLOOD COUNT 4.97 10^6/uL (4.00-5.40); WHITE BLOOD COUNT 12.9 10^3/uL (4.0-10.0)
[2024-07-11 12:40] LABS: LIPASE 45 U/L (12-53)
[2024-07-11 12:45] LABS: ALBUMIN 3.7 G/DL (3.2-5.2); ALKALINE PHOSPHATASE 76 U/L (35-104); ALT/SGPT 14 U/L (7.0-40); AST/SGOT 8 U/L (<34); BILIRUBIN,DIRECT 0.1 MG/DL (<0.4); BILIRUBIN,TOTAL 0.3 MG/DL (0.3-1.2); BLOOD UREA NITROGEN 8 MG/DL (9-23); CALCIUM LEVEL 8.6 MG/DL (8.5-10.1); CARBON DIOXIDE LEVEL 23 MMOL/L (20-31); CHLORIDE LEVEL 108 MMOL/L (98-107); CREATININE FOR GFR 0.41 MG/DL (0.55-1.30); GLOMERULAR FILTRATION RATE > 60.0 (>58); GLUCOSE, FASTING 214 MG/DL (60-100); POTASSIUM SERUM 3.9 MMOL/L (3.5-5.1); SODIUM LEVEL 142 MMOL/L (136-145); TOTAL PROTEIN 6.5 G/DL (5.7-8.2)
[2024-07-11 13:10] LABS: KETONE, URINE AUTO RFX 1+ mg/dL (NEGATIVE); LEUKOCYTE ESTERASE UR AUTO RFX NEGATIVE (NEGATIVE)
== END 2024-07-11 13:34 | disposition home or self-care (01) ==
LOC: M ED 10:39
DX: R11.10 Vomiting, unspecified (principal); E11.9 Type 2 diabetes mellitus without complications; F41.9 Anxiety disorder, unspecified; F12.10 Cannabis abuse, uncomplicated; Z88.8 Allergy status to other drugs, medicaments and biological substances; Z79.1 Long term (current) use of non-steroidal anti-inflammatories (NSAID); Z79.51 Long term (current) use of inhaled steroids; Z79.4 Long term (current) use of insulin; Z79.899 Other long term (current) drug therapy
CPT/HCPCS: 80048; 80076; 81001; 82803; 83690; 85025; 96374; 96375; 99284; J2405

== ENCOUNTER 2024-07-13 14:22 | Emergency (ER) | payer OTHER ==
[~2024-07-13] VITALS: Ht 154.9 cm; Wt 59.1 kg
[2024-07-13 16:05] LABS: KETONE, URINE AUTO RFX 1+ mg/dL (NEGATIVE); LEUKOCYTE ESTERASE UR AUTO RFX NEGATIVE (NEGATIVE); MUCUS, URINE RFX SMALL (NEGATIVE); NITRITE, URINE AUTO RFX NEGATIVE (NEGATIVE); RBC, URINE AUTO RFX 2 /HPF (0-3); SQUAM EPITHELIAL CELL UR AURFX 0 /HPF (0-6); WBC, URINE AUTO RFX 0 /HPF (0-3)
[2024-07-13 17:04] LABS: VENOUS BASE EXCESS 0.9 (-2.0-2.0); VENOUS HCO3 23.2 MMOL/L (23.0-27.0); VENOUS O2 SATURATION 99.4 % (60.0-80.0); VENOUS PARTIAL PRESSURE CO2 30.7 mmHg (38.0-50.0); VENOUS PARTIAL PRESSURE O2 171.2 mmHg (30.0-50.0); VENOUS PH 7.497 UNITS (7.330-7.430); VENOUS STANDARD HCO3 25.3 MMOL/L; VENOUS TOTAL CO2 24.2 MMOL/L (24.0-28.0)
[2024-07-13 17:07] LABS: BASO # 0.1 10^3/uL (0.0-0.2); BASO % 0.7 % (0.0-1.0); EOS # 0.1 10^3/uL (0.0-0.5); EOS % 0.4 % (0.0-3.0); HEMOGLOBIN 12.7 g/dl (12.0-15.5); LYMPH # 3.3 10^3/uL (1.5-5.0); LYMPH % 27.3 % (24.0-44.0); MEAN CORPUSCULAR HEMOGLOBIN 27.1 pg (27.0-33.0); MEAN CORPUSCULAR HGB CONC 33.4 g/dl (32.0-36.5); MEAN CORPUSCULAR VOLUME 81.2 fl (80.0-96.0); MONO # 0.8 10^3/uL (0.0-0.8); MONO % 6.6 % (2.0-8.0); NEUTROPHILS # 7.9 10^3/uL (1.5-8.5); NEUTROPHILS % 64.6 % (36.0-66.0); PLATELET COUNT, AUTOMATED 466 10^3/uL (150-450); RED BLOOD COUNT 4.68 10^6/uL (4.00-5.40); WHITE BLOOD COUNT 12.2 10^3/uL (4.0-10.0)
[2024-07-13 17:21] VITALS: TEMP 99
[2024-07-13] MEDS ORDERED: ONDANSETRON 4MG 2ML VIAL As Ordered ONE (17:23)
[2024-07-13] MEDS ORDERED: ONDANSETRON 4MG ORAL DISINTEGRATING TAB PO ONE (17:25)
[2024-07-13 17:29] LABS: LIPASE 36 U/L (12-53)
[2024-07-13] MEDS: ONDANSETRON 4MG 2ML VIAL IV ONE (17:32)
[2024-07-13 17:37] LABS: ALBUMIN 4.5 G/DL (3.2-5.2); ALKALINE PHOSPHATASE 84 U/L (35-104); ALT/SGPT 16 U/L (7.0-40); AST/SGOT 10 U/L (<34); BILIRUBIN,DIRECT 0.2 MG/DL (<0.4); BILIRUBIN,TOTAL 0.7 MG/DL (0.3-1.2); BLOOD UREA NITROGEN 11 MG/DL (9-23); CARBON DIOXIDE LEVEL 24 MMOL/L (20-31); CHLORIDE LEVEL 102 MMOL/L (98-107); CREATININE FOR GFR 0.54 MG/DL (0.55-1.30); GLOMERULAR FILTRATION RATE > 60.0 (>58); GLUCOSE, FASTING 257 MG/DL (60-100); POTASSIUM SERUM 3.7 MMOL/L (3.5-5.1); SODIUM LEVEL 139 MMOL/L (136-145); TOTAL PROTEIN 7.6 G/DL (5.7-8.2)
[2024-07-13] MEDS: ALPRAZolam 0.5 MG TAB PO ONE (17:47)
[2024-07-13] MEDS: MORPHINE 4 MG/ML 1ML VIAL IV ONE (18:04)
[2024-07-13 20:27] VITALS: BP 121/76; O2SAT 98
== END 2024-07-13 20:28 | disposition home or self-care (01) ==
LOC: M ED 14:22 → EDBD 14:22 → M ED 20:28
DX: K31.84 Gastroparesis (principal); E11.9 Type 2 diabetes mellitus without complications; I10 Essential (primary) hypertension; Z79.4 Long term (current) use of insulin; Z79.899 Other long term (current) drug therapy
CPT/HCPCS: 80048; 80076; 81001; 82803; 83690; 85025; 96374; 96375; 99284; J2405

== ENCOUNTER → 2024-07-13 | Outpatient (CLI) | payer OTHER ==
[2024-07-13 13:49] LABS: CHOLESTEROL RISK RATIO 3.53 (<5); LDL CHOLESTEROL 89.4 MG/DL (<100)
[2024-07-13 13:50] LABS: CREATININE, URINE 88.3 MG/DL; MAU/CREAT RATIO 20.3 MCG/MG (0.0-30.0)
== END ==
LOC: M PLALAB 09:00
DX: E13.9 Other specified diabetes mellitus without complications (principal)

== ENCOUNTER → 2024-07-13 | Outpatient (REF) | payer OTHER | LOC: M SFHCPLAZ 08:53 | DX: Z53.9 Procedure and treatment not carried out, unspecified reason (principal) ==

== ENCOUNTER 2024-08-01 03:40 | Inpatient (IN) | payer OTHER ==
[~2024-08-01] VITALS: Ht 154.9 cm; Wt 58.1 kg
[2024-08-01 04:01] LABS: VENOUS BASE EXCESS -2.7 (-2.0-2.0); VENOUS HCO3 19.1 MMOL/L (23.0-27.0); VENOUS O2 SATURATION 96.2 % (60.0-80.0); VENOUS PARTIAL PRESSURE CO2 25.8 mmHg (38.0-50.0); VENOUS PARTIAL PRESSURE O2 73.8 mmHg (30.0-50.0); VENOUS PH 7.488 UNITS (7.330-7.430); VENOUS STANDARD HCO3 22.2 MMOL/L; VENOUS TOTAL CO2 19.9 MMOL/L (24.0-28.0)
[2024-08-01 04:05] LABS: BASO # 0.1 10^3/uL (0.0-0.2); BASO % 0.6 % (0.0-1.0); EOS # 0.2 10^3/uL (0.0-0.5); EOS % 0.9 % (0.0-3.0); HEMATOCRIT 38.8 % (36.0-47.0); HEMOGLOBIN 12.8 g/dl (12.0-15.5); LYMPH # 2.6 10^3/uL (1.5-5.0); LYMPH % 14.3 % (24.0-44.0); MEAN CORPUSCULAR HEMOGLOBIN 26.9 pg (27.0-33.0); MEAN CORPUSCULAR VOLUME 81.5 fl (80.0-96.0); MONO # 0.6 10^3/uL (0.0-0.8); MONO % 3.5 % (2.0-8.0); NEUTROPHILS # 14.6 10^3/uL (1.5-8.5); NEUTROPHILS % 80.4 % (36.0-66.0); PLATELET COUNT, AUTOMATED 386 10^3/uL (150-450); RED BLOOD COUNT 4.76 10^6/uL (4.00-5.40); WHITE BLOOD COUNT 18.1 10^3/uL (4.0-10.0)
[2024-08-01] MEDS ORDERED: diphenhydrAMINE 50MG/ML VIAL As Ordered ONE (04:12)
[2024-08-01 04:29] LABS: LIPASE 41 U/L (12-53)
[2024-08-01] MEDS: HumuLIN R (REGULAR) INSULIN (NovoLIN R) **100U/ML** PER UNIT IV ONE ×2 (04:29→08:49)
[2024-08-01] MEDS: FAMOTIDINE 20MG/2ML VIAL IVP ONE (04:30)
[2024-08-01] MEDS: diphenhydrAMINE 50MG/ML VIAL IV ONE (04:31)
[2024-08-01] MEDS: ONDANSETRON 4MG 2ML VIAL IV ONE ×2 (04:31→12:56)
[2024-08-01 04:32] LABS: ACETONE/KETONE 2.08 MMOL/L (0.02-0.27)
[2024-08-01] MEDS: MORPHINE 2 MG/ML 1ML VIAL IV ONE (04:32)
[2024-08-01] MEDS: NS (Normal Saline) 0.9% 1,000 ML IV ONE (04:33)
[2024-08-01] MEDS: METOCLOPRAMIDE INJ 10MG/2ML VIAL IV ONE (04:52)
[2024-08-01 04:55] LABS: ALBUMIN 4.2 G/DL (3.2-5.2); ALKALINE PHOSPHATASE 113 U/L (35-104); ALT/SGPT 47 U/L (7.0-40); AST/SGOT 32 U/L (<34); BILIRUBIN,DIRECT 0.2 MG/DL (<0.4); BILIRUBIN,TOTAL 0.5 MG/DL (0.3-1.2); BLOOD UREA NITROGEN 18 MG/DL (9-23); CALCIUM LEVEL 9.6 MG/DL (8.5-10.1); CARBON DIOXIDE LEVEL 20 MMOL/L (20-31); CHLORIDE LEVEL 103 MMOL/L (98-107); CREATININE FOR GFR 0.67 MG/DL (0.55-1.30); GLOMERULAR FILTRATION RATE > 60.0 (>58); GLUCOSE, FASTING 461 MG/DL (60-100); POTASSIUM SERUM 4.3 MMOL/L (3.5-5.1); SODIUM LEVEL 136 MMOL/L (136-145); TOTAL PROTEIN 7.5 G/DL (5.7-8.2)
[2024-08-01 05:18] LABS: KETONE, URINE AUTO RFX 1+ mg/dL (NEGATIVE); LEUKOCYTE ESTERASE UR AUTO RFX NEGATIVE (NEGATIVE); MUCUS, URINE RFX SMALL (NEGATIVE); NITRITE, URINE AUTO RFX NEGATIVE (NEGATIVE); RBC, URINE AUTO RFX 21 /HPF (0-3); SQUAM EPITHELIAL CELL UR AURFX 23 /HPF (0-6); WBC, URINE AUTO RFX 6 /HPF (0-3)
[2024-08-01] MEDS: MORPHINE 4 MG/ML 1ML VIAL IV ONE ×2 (07:35→12:56)
[2024-08-01] MEDS ORDERED: ISOVUE-370 76% 100ML VIAL As Ordered ONE (08:23)
[2024-08-01] MEDS: PROMETHAZINE 25MG/ML 1ML VIAL IV ONE ×2 (08:49→12:56)
[2024-08-01] MEDS ORDERED: HOME MED LIST COMPLETE! XX SCH (08:55)
[2024-08-01 12:41] LABS: BLOOD UREA NITROGEN 16 MG/DL (9-23); C REACTIVE PROTEIN QUANTITATIV 0.71 MG/DL (<1.0); CALCIUM LEVEL 9.7 MG/DL (8.5-10.1); CARBON DIOXIDE LEVEL 18 MMOL/L (20-31); CHLORIDE LEVEL 101 MMOL/L (98-107); CREATININE FOR GFR 0.63 MG/DL (0.55-1.30); GLOMERULAR FILTRATION RATE > 60.0 (>58); GLUCOSE, FASTING 350 MG/DL (60-100); POTASSIUM SERUM 4.7 MMOL/L (3.5-5.1); SODIUM LEVEL 137 MMOL/L (136-145)
[2024-08-01 12:53] LABS: PROCALCITONIN 0.13 ng/ml
[2024-08-01] MEDS: SCOPOLAMINE 1MG TRANSDERMAL PATCH TOP SCH (12:56)
[2024-08-01] MEDS ORDERED: GLUCAGON INJ 1MG VIAL SC PRN (13:55)
[2024-08-01] MEDS ORDERED: GLUCOSE 4 GM CHEW PO PRN (13:55)
[2024-08-01] MEDS: LR 1,000 ML IV ONE ×3 (14:32→18:40)
[2024-08-01] MEDS: LEVEMIR (INSULIN DETEMIR) 1 UNITS/0.01ML SC ONE ×2 (14:38→17:06)
[2024-08-01] MEDS: INSULIN LISPRO (NovoLOG) PER UNIT SC SCH ×2 (14:39→17:06)
[2024-08-01] MEDS ORDERED: MORPHINE 2 MG/ML 1ML VIAL IV PRN (14:40)
[2024-08-01] MEDS ORDERED: MOM 30ML SUSPENSION UDC PO PRN (14:45)
[2024-08-01] MEDS ORDERED: ACETAMINOPHEN 325 MG TAB PO PRN (14:45)
[2024-08-01] MEDS ORDERED: METOCLOPRAMIDE INJ 10MG/2ML VIAL IV SCH (15:00)
[2024-08-01] MEDS ORDERED: ONDANSETRON 4MG 2ML VIAL IV SCH (15:00)
[2024-08-01 15:55] LABS: AMPHETAMINES LEVEL URINE NEGATIVE (NEGATIVE); BARBITURATES URINE NEGATIVE (NEGATIVE); BENZODIAZEPINES URINE POSITIVE (NEGATIVE); CANNABINOIDS URINE POSITIVE (NEGATIVE); COCAINE METABOLITE URINE NEGATIVE (NEGATIVE); METHADONE URINE NEGATIVE (NEGATIVE)
[2024-08-01 15:56] LABS: OPIATES URINE POSITIVE (NEGATIVE); PHENCYCLIDINE URINE NEGATIVE (NEGATIVE)
[2024-08-01 16:16] LABS: VENOUS BASE EXCESS -6.8 (-2.0-2.0); VENOUS HCO3 18.5 MMOL/L (23.0-27.0); VENOUS PARTIAL PRESSURE CO2 36.3 mmHg (38.0-50.0); VENOUS PH 7.325 UNITS (7.330-7.430); VENOUS STANDARD HCO3 18.8 MMOL/L; VENOUS TOTAL CO2 19.6 MMOL/L (24.0-28.0)
[2024-08-01 16:50] LABS: BLOOD UREA NITROGEN 18 MG/DL (9-23); CALCIUM LEVEL 8.9 MG/DL (8.5-10.1); CARBON DIOXIDE LEVEL 18 MMOL/L (20-31); CHLORIDE LEVEL 100 MMOL/L (98-107); CREATININE FOR GFR 0.68 MG/DL (0.55-1.30); GLOMERULAR FILTRATION RATE > 60.0 (>58); GLUCOSE, FASTING 343 MG/DL (60-100); POTASSIUM SERUM 4.4 MMOL/L (3.5-5.1); SODIUM LEVEL 135 MMOL/L (136-145)
[2024-08-01] MEDS: PARoxetine 20MG TABLET PO SCH (17:05)
[2024-08-01] MEDS: POTASSIUM CHLORIDE INJ 40 MEQ in LR 1,000 ML IV SCH (17:05)
[2024-08-01] MEDS: PANTOPRAZOLE 40MG VIAL IV SCH (17:05)
[2024-08-01 18:31] VITALS: BP 104/62; TEMP 98.2; O2SAT 100
[2024-08-01] MEDS: D5W 1,000 ML IV SCH (18:58)
[2024-08-01 20:16] VITALS: BP 108/55; TEMP 97.8; O2SAT 98
[2024-08-01 20:41] LABS: BLOOD UREA NITROGEN 16 MG/DL (9-23); CALCIUM LEVEL 8.9 MG/DL (8.5-10.1); CARBON DIOXIDE LEVEL 25 MMOL/L (20-31); CHLORIDE LEVEL 105 MMOL/L (98-107); CREATININE FOR GFR 0.58 MG/DL (0.55-1.30); GLOMERULAR FILTRATION RATE > 60.0 (>58); GLUCOSE, FASTING 75 MG/DL (60-100); POTASSIUM SERUM 3.9 MMOL/L (3.5-5.1); SODIUM LEVEL 137 MMOL/L (136-145)
[2024-08-01] MEDS: LEVEMIR (INSULIN DETEMIR) 1 UNITS/0.01ML SC SCH (20:48)
[2024-08-01] MEDS: DOCUSATE SODIUM 100MG CAPSULE PO SCH (20:55)
[2024-08-01] MEDS: ALPRAZolam 0.5 MG TAB PO PRN (20:55)
[2024-08-01] MEDS: MORPHINE 4 MG/ML 1ML VIAL IV PRN (20:56)
[2024-08-01 23:46] VITALS: BP 86/54; TEMP 97; O2SAT 100
[2024-08-02 00:55] LABS: BLOOD UREA NITROGEN 13 MG/DL (9-23); CALCIUM LEVEL 8.6 MG/DL (8.5-10.1); CARBON DIOXIDE LEVEL 26 MMOL/L (20-31); CHLORIDE LEVEL 104 MMOL/L (98-107); CREATININE FOR GFR 0.52 MG/DL (0.55-1.30); GLOMERULAR FILTRATION RATE > 60.0 (>58); GLUCOSE, FASTING 63 MG/DL (60-100); POTASSIUM SERUM 4.2 MMOL/L (3.5-5.1); SODIUM LEVEL 138 MMOL/L (136-145)
[2024-08-02] MEDS: DEXTROSE 50% 50ML SYRINGE IV PRN (01:00)
[2024-08-02] MEDS: MIDODRINE 2.5 MG TAB PO ONE (01:22)
[2024-08-02 03:31] VITALS: BP 122/78; TEMP 97.8; O2SAT 100
[2024-08-02 04:05] LABS: HEMATOCRIT 30.9 % (36.0-47.0); MEAN CORPUSCULAR HEMOGLOBIN 26.8 pg (27.0-33.0); MEAN CORPUSCULAR VOLUME 83.5 fl (80.0-96.0); PLATELET COUNT, AUTOMATED 319 10^3/uL (150-450); WHITE BLOOD COUNT 11.5 10^3/uL (4.0-10.0)
[2024-08-02 04:10] LABS: HEMOGLOBIN 9.9 g/dl (12.0-15.5)
[2024-08-02 04:13] LABS: BLOOD UREA NITROGEN 11 MG/DL (9-23); CALCIUM LEVEL 8.5 MG/DL (8.5-10.1); CARBON DIOXIDE LEVEL 28 MMOL/L (20-31); CHLORIDE LEVEL 106 MMOL/L (98-107); CREATININE FOR GFR 0.51 MG/DL (0.55-1.30); GLOMERULAR FILTRATION RATE > 60.0 (>58); GLUCOSE, FASTING 104 MG/DL (60-100); POTASSIUM SERUM 4.4 MMOL/L (3.5-5.1); SODIUM LEVEL 137 MMOL/L (136-145)
[2024-08-02] MEDS: METOCLOPRAMIDE INJ 10MG/2ML VIAL IV PRN (06:33)
[2024-08-02] MEDS: SUMAtriptan SUCCINATE 25MG TABLET PO PRN (06:58)
[2024-08-02] MEDS ORDERED: NORCO, ANEXSIA 5/325MG TABLET (HYDROcodone/ACETAMINOPHEN) PO PRN ×2 (07:30)
[2024-08-02 08:00] VITALS: BP 100/60; TEMP 98.9; O2SAT 97
[2024-08-02] MEDS: LEVEMIR (INSULIN DETEMIR) 1 UNITS/0.01ML SC SCH (08:19)
[2024-08-02] MEDS: INSULIN LISPRO (NovoLOG) PER UNIT SC SCH (08:19)
[2024-08-02] MEDS: ENOXAPARIN 40MG/0.4ML SYRINGE (J1650 PER 10MG) SC SCH (08:20)
[2024-08-02 08:40] LABS: BLOOD UREA NITROGEN 10 MG/DL (9-23); CALCIUM LEVEL 8.7 MG/DL (8.5-10.1); CARBON DIOXIDE LEVEL 26 MMOL/L (20-31); CHLORIDE LEVEL 104 MMOL/L (98-107); CREATININE FOR GFR 0.49 MG/DL (0.55-1.30); GLOMERULAR FILTRATION RATE > 60.0 (>58); GLUCOSE, FASTING 168 MG/DL (60-100); POTASSIUM SERUM 4.3 MMOL/L (3.5-5.1); SODIUM LEVEL 136 MMOL/L (136-145)
[2024-08-02] MEDS ORDERED: PROCHLORPERAZINE 5MG TAB PO PRN (10:00)
[2024-08-02 12:00] VITALS: BP 123/74; TEMP 98.2; O2SAT 98
[2024-08-02] MEDS ORDERED: BASA100I SC (13:08)
[2024-08-02] MEDS ORDERED: METO10TA3 PO (13:08)
[2024-08-02] MEDS ORDERED: PROC5TAB57 PO (13:08)
[2024-08-02] MEDS ORDERED: TRAN1DIS4 TOP (13:08)
[2024-08-02] MEDS ORDERED: PANTOPRAZOLE 40MG TAB (PROTONIX) PO SCH (17:30)
[2024-08-02] MEDS ORDERED: INSULIN LISPRO (NovoLOG) PER UNIT SC SCH (21:00)
== END 2024-08-02 15:45 | disposition home or self-care (01) | DRG 420 ==
LOC: M ED 03:40 → EDBD 03:40 → M ED INP 17:07 → M PCU 18:22
PROVIDERS: ADMIT Student in an Organized Health Care Education/Training Program; ATTEND Student in an Organized Health Care Education/Training Program
DX: E11.10 Type 2 diabetes mellitus with ketoacidosis without coma (principal); K31.84 Gastroparesis; I10 Essential (primary) hypertension; E78.5 Hyperlipidemia, unspecified; F32.A Depression, unspecified; F41.9 Anxiety disorder, unspecified; J45.909 Unspecified asthma, uncomplicated; K21.9 Gastro-esophageal reflux disease without esophagitis; Z79.4 Long term (current) use of insulin; Z79.899 Other long term (current) drug therapy; E28.2 Polycystic ovarian syndrome; G43.909 Migraine, unspecified, not intractable, without status migrainosus; Z87.891 Personal history of nicotine dependence; F12.90 Cannabis use, unspecified, uncomplicated; E11.43 Type 2 diabetes mellitus with diabetic autonomic (poly)neuropathy

== ENCOUNTER 2024-08-04 08:36 | Observation (INO) | payer OTHER ==
[~2024-08-04] VITALS: Ht 154.9 cm; Wt 62.5 kg
[~2024-08-04 08:36] MED LIST changes: +PROC5TAB57 PO
[2024-08-04] MEDS: LOSARTAN 25 MG TAB PO SCH (09:00)
[2024-08-04] MEDS: NS (Normal Saline) 0.9% 1,000 ML IV ONE ×2 (09:00→09:05)
[2024-08-04 09:12] LABS: VENOUS HCO3 23.1 MMOL/L (23.0-27.0); VENOUS O2 SATURATION 99.4 % (60.0-80.0); VENOUS PARTIAL PRESSURE CO2 29.1 mmHg (38.0-50.0); VENOUS PARTIAL PRESSURE O2 186.4 mmHg (30.0-50.0); VENOUS PH 7.517 UNITS (7.330-7.430); VENOUS STANDARD HCO3 25.4 MMOL/L
[2024-08-04] MEDS: ONDANSETRON 4MG 2ML VIAL IV ONE ×2 (09:15→11:49)
[2024-08-04 09:16] LABS: BASO # 0.1 10^3/uL (0.0-0.2); BASO % 0.6 % (0.0-1.0); EOS # 0.2 10^3/uL (0.0-0.5); HEMATOCRIT 34.8 % (36.0-47.0); HEMOGLOBIN 11.5 g/dl (12.0-15.5); LYMPH # 2.5 10^3/uL (1.5-5.0); LYMPH % 17.1 % (24.0-44.0); MEAN CORPUSCULAR HEMOGLOBIN 26.8 pg (27.0-33.0); MEAN CORPUSCULAR VOLUME 81.1 fl (80.0-96.0); MONO # 0.6 10^3/uL (0.0-0.8); MONO % 4.3 % (2.0-8.0); NEUTROPHILS % 76.5 % (36.0-66.0); PLATELET COUNT, AUTOMATED 378 10^3/uL (150-450); RED BLOOD COUNT 4.29 10^6/uL (4.00-5.40); WHITE BLOOD COUNT 14.4 10^3/uL (4.0-10.0)
[2024-08-04] MEDS: MORPHINE 4 MG/ML 1ML VIAL IV PRN (09:16)
[2024-08-04 09:29] LABS: KETONE, URINE AUTO RFX TRACE mg/dL (NEGATIVE); LEUKOCYTE ESTERASE UR AUTO RFX NEGATIVE (NEGATIVE); NITRITE, URINE AUTO RFX NEGATIVE (NEGATIVE); RBC, URINE AUTO RFX 0 /HPF (0-3); SQUAM EPITHELIAL CELL UR AURFX 2 /HPF (0-6); WBC, URINE AUTO RFX 0 /HPF (0-3)
[2024-08-04 09:35] LABS: ETHYL ALCOHOL (ETHANOL) 0.005 % (0.000-0.010); LIPASE 52 U/L (12-53); OSMOLALITY SERUM 297 MOSM/KG (275-295)
[2024-08-04 09:36] LABS: AMYLASE 53 U/L (30-118)
[2024-08-04 09:43] LABS: HEMOGLOBIN A1c 10.4 % (4.0-6.0)
[2024-08-04 09:45] LABS: ALKALINE PHOSPHATASE 116 U/L (35-104); ALT/SGPT 61 U/L (7.0-40); AST/SGOT 47 U/L (<34); BILIRUBIN,DIRECT 0.1 MG/DL (<0.4); BILIRUBIN,TOTAL 0.4 MG/DL (0.3-1.2); BLOOD UREA NITROGEN 10 MG/DL (9-23); CALCIUM LEVEL 8.9 MG/DL (8.5-10.1); CARBON DIOXIDE LEVEL 22 MMOL/L (20-31); CHLORIDE LEVEL 105 MMOL/L (98-107); CREATININE FOR GFR 0.54 MG/DL (0.55-1.30); GLOMERULAR FILTRATION RATE > 60.0 (>58); GLUCOSE, FASTING 469 MG/DL (60-100); POTASSIUM SERUM 4.1 MMOL/L (3.5-5.1); SODIUM LEVEL 137 MMOL/L (136-145); TOTAL PROTEIN 7.1 G/DL (5.7-8.2)
[2024-08-04 09:59] LABS: AMPHETAMINES LEVEL URINE NEGATIVE (NEGATIVE); BARBITURATES URINE NEGATIVE (NEGATIVE); BENZODIAZEPINES URINE NEGATIVE (NEGATIVE); COCAINE METABOLITE URINE NEGATIVE (NEGATIVE); METHADONE URINE NEGATIVE (NEGATIVE); PHENCYCLIDINE URINE NEGATIVE (NEGATIVE)
[2024-08-04 10:00] LABS: CANNABINOIDS URINE POSITIVE (NEGATIVE); OPIATES URINE POSITIVE (NEGATIVE)
[2024-08-04] MEDS: HumuLIN R (REGULAR) INSULIN (NovoLIN R) **100U/ML** PER UNIT IV ONE (10:00)
[2024-08-04] MEDS: PIPERACILLIN/TAZOBACTAM SOD 4.5 GM in DEXTROSE 5% (D5W) ADV/MINI-BAG 50 ML IV ONE (10:00)
[2024-08-04] MEDS ORDERED: ISOVUE-370 76% 100ML VIAL As Ordered ONE (11:11)
[2024-08-04] MEDS: hydrALAZINE 20MG/ML 1ML VIAL IV ONE (12:31)
[2024-08-04] MEDS ORDERED: PROC5TAB57 PO (12:35)
[2024-08-04] MEDS ORDERED: HOME MED LIST COMPLETE! XX SCH (12:40)
[2024-08-04] MEDS ORDERED: METOCLOPRAMIDE 10MG TAB PO PRN (13:30)
[2024-08-04] MEDS ORDERED: DEXTROSE 50% 50ML SYRINGE IV PRN (13:30)
[2024-08-04] MEDS ORDERED: GLUCOSE 4 GM CHEW PO PRN (13:30)
[2024-08-04] MEDS ORDERED: PROCHLORPERAZINE 5MG TAB PO PRN (13:30)
[2024-08-04] MEDS ORDERED: ALBUTEROL 90 MCG/ACT 8GM HFA INHALER INH PRN (13:30)
[2024-08-04] MEDS ORDERED: DOCUSATE SODIUM 100MG CAPSULE PO PRN (13:30)
[2024-08-04] MEDS ORDERED: GLUCAGON INJ 1MG VIAL SC PRN (13:30)
[2024-08-04] MEDS: INSULIN LISPRO (NovoLOG) PER UNIT SC SCH (14:23)
[2024-08-04] MEDS: LEVEMIR (INSULIN DETEMIR) 1 UNITS/0.01ML SC SCH (14:23)
[2024-08-04] MEDS: PARoxetine 20MG TABLET PO SCH (14:24)
[2024-08-04 15:27] VITALS: BP 114/56; TEMP 98.7; O2SAT 96
[2024-08-04] MEDS: NORCO, ANEXSIA 5/325MG TABLET (HYDROcodone/ACETAMINOPHEN) PO PRN (16:12)
[2024-08-04] MEDS: KCL 20MEQ in NS 1000ML 1,000 ML IV SCH (16:12)
[2024-08-04 16:47] LABS: MAGNESIUM LEVEL 1.8 MG/DL (1.8-2.4)
[2024-08-04 17:39] LABS: BLOOD UREA NITROGEN 7 MG/DL (9-23); C REACTIVE PROTEIN QUANTITATIV 0.62 MG/DL (<1.0); CARBON DIOXIDE LEVEL 26 MMOL/L (20-31); CHLORIDE LEVEL 103 MMOL/L (98-107); CREATININE FOR GFR 0.47 MG/DL (0.55-1.30); GLOMERULAR FILTRATION RATE > 60.0 (>58); GLUCOSE, FASTING 105 MG/DL (60-100); POTASSIUM SERUM 3.9 MMOL/L (3.5-5.1); SODIUM LEVEL 139 MMOL/L (136-145)
[2024-08-04 17:46] LABS: PROCALCITONIN 0.08 ng/ml
[2024-08-04] MEDS: PANTOPRAZOLE 40MG TAB (PROTONIX) PO SCH (17:47)
[2024-08-04 19:28] VITALS: BP 111/67; TEMP 98.8; O2SAT 96
[2024-08-04] MEDS: ALPRAZolam 0.5 MG TAB PO PRN (19:31)
[2024-08-04 23:23] VITALS: BP 108/59; TEMP 97.4; O2SAT 99
[2024-08-05 00:47] LABS: BLOOD UREA NITROGEN 7 MG/DL (9-23); CALCIUM LEVEL 7.7 MG/DL (8.5-10.1); CARBON DIOXIDE LEVEL 26 MMOL/L (20-31); CHLORIDE LEVEL 104 MMOL/L (98-107); CREATININE FOR GFR 0.52 MG/DL (0.55-1.30); GLOMERULAR FILTRATION RATE > 60.0 (>58); GLUCOSE, FASTING 131 MG/DL (60-100); POTASSIUM SERUM 3.5 MMOL/L (3.5-5.1); SODIUM LEVEL 139 MMOL/L (136-145)
[2024-08-05] MEDS: SUMAtriptan SUCCINATE 25MG TABLET PO PRN (03:04)
[2024-08-05 04:01] VITALS: BP 141/77; TEMP 98.6; O2SAT 98
[2024-08-05 05:25] LABS: HEMATOCRIT 32.3 % (36.0-47.0); HEMOGLOBIN 10.5 g/dl (12.0-15.5); MEAN CORPUSCULAR HGB CONC 32.5 g/dl (32.0-36.5); PLATELET COUNT, AUTOMATED 322 10^3/uL (150-450); RED BLOOD COUNT 3.89 10^6/uL (4.00-5.40); WHITE BLOOD COUNT 8.7 10^3/uL (4.0-10.0)
[2024-08-05 05:46] LABS: BLOOD UREA NITROGEN 6 MG/DL (9-23); CALCIUM LEVEL 8.4 MG/DL (8.5-10.1); CARBON DIOXIDE LEVEL 26 MMOL/L (20-31); CHLORIDE LEVEL 102 MMOL/L (98-107); CREATININE FOR GFR 0.52 MG/DL (0.55-1.30); GLOMERULAR FILTRATION RATE > 60.0 (>58); GLUCOSE, FASTING 185 MG/DL (60-100); POTASSIUM SERUM 3.8 MMOL/L (3.5-5.1); SODIUM LEVEL 138 MMOL/L (136-145)
[2024-08-05 08:28] VITALS: BP 147/69; TEMP 97.7; O2SAT 96
[2024-08-05] MEDS: LOSARTAN 25 MG TAB PO SCH (09:19)
[2024-08-05 12:32] VITALS: BP 156/91; TEMP 98.5; O2SAT 97
[2024-08-05 12:49] LABS: BLOOD UREA NITROGEN < 5 MG/DL (9-23); CARBON DIOXIDE LEVEL 26 MMOL/L (20-31); CHLORIDE LEVEL 106 MMOL/L (98-107); CREATININE FOR GFR 0.58 MG/DL (0.55-1.30); GLOMERULAR FILTRATION RATE > 60.0 (>58); GLUCOSE, FASTING 222 MG/DL (60-100); POTASSIUM SERUM 3.9 MMOL/L (3.5-5.1); SODIUM LEVEL 139 MMOL/L (136-145)
[2024-08-05 16:27] VITALS: BP 141/87; TEMP 98.2; O2SAT 94
[2024-08-05 18:46] LABS: BLOOD UREA NITROGEN 10 MG/DL (9-23); CALCIUM LEVEL 9.2 MG/DL (8.5-10.1); CARBON DIOXIDE LEVEL 26 MMOL/L (20-31); CHLORIDE LEVEL 104 MMOL/L (98-107); CREATININE FOR GFR 0.71 MG/DL (0.55-1.30); GLOMERULAR FILTRATION RATE > 60.0 (>58); GLUCOSE, FASTING 144 MG/DL (60-100); POTASSIUM SERUM 4.1 MMOL/L (3.5-5.1); SODIUM LEVEL 138 MMOL/L (136-145)
[2024-08-05 20:26] VITALS: BP 132/89; TEMP 98.4; O2SAT 97
[2024-08-05 23:41] VITALS: BP 143/86; TEMP 97.8; O2SAT 98
[2024-08-06 03:41] VITALS: BP 131/82; TEMP 97.9; TEMP 98.4; O2SAT 98
[2024-08-06] MEDS: ACETAMINOPHEN 325 MG TAB PO PRN (06:41)
[2024-08-06] MEDS: INSULIN LISPRO (NovoLOG) PER UNIT SC SCH (06:41)
[2024-08-06] MEDS: SCOPOLAMINE 1MG TRANSDERMAL PATCH TOP PRN (06:42)
[2024-08-06 08:15] VITALS: BP 152/84; TEMP 98.2; O2SAT 96
[2024-08-06 08:17] LABS: HEMATOCRIT 35.6 % (36.0-47.0); MEAN CORPUSCULAR HEMOGLOBIN 27.4 pg (27.0-33.0); MEAN CORPUSCULAR HGB CONC 33.7 g/dl (32.0-36.5); MEAN CORPUSCULAR VOLUME 81.3 fl (80.0-96.0); PLATELET COUNT, AUTOMATED 392 10^3/uL (150-450); RED BLOOD COUNT 4.38 10^6/uL (4.00-5.40); WHITE BLOOD COUNT 12.6 10^3/uL (4.0-10.0)
[2024-08-06 08:38] LABS: BLOOD UREA NITROGEN 14 MG/DL (9-23); CALCIUM LEVEL 8.8 MG/DL (8.5-10.1); CARBON DIOXIDE LEVEL 24 MMOL/L (20-31); CHLORIDE LEVEL 97 MMOL/L (98-107); CREATININE FOR GFR 0.52 MG/DL (0.55-1.30); GLOMERULAR FILTRATION RATE > 60.0 (>58); GLUCOSE, FASTING 269 MG/DL (60-100); POTASSIUM SERUM 3.8 MMOL/L (3.5-5.1); SODIUM LEVEL 135 MMOL/L (136-145)
[2024-08-06 09:42] VITALS: BP 152/84
[2024-08-06] MEDS: LEVEMIR (INSULIN DETEMIR) 1 UNITS/0.01ML SC SCH (09:42)
[2024-08-06 11:32] VITALS: BP 147/83; TEMP 99; O2SAT 97
[2024-08-06 14:21] LABS: BASO # 0.1 10^3/uL (0.0-0.2); BASO % 0.8 % (0.0-1.0); EOS # 0.2 10^3/uL (0.0-0.5); EOS % 1.8 % (0.0-3.0); HEMATOCRIT 35.2 % (36.0-47.0); HEMOGLOBIN 11.7 g/dl (12.0-15.5); LYMPH # 3.5 10^3/uL (1.5-5.0); LYMPH % 36.8 % (24.0-44.0); MEAN CORPUSCULAR HGB CONC 33.2 g/dl (32.0-36.5); MEAN CORPUSCULAR VOLUME 81.1 fl (80.0-96.0); MONO # 0.5 10^3/uL (0.0-0.8); MONO % 4.8 % (2.0-8.0); NEUTROPHILS # 5.3 10^3/uL (1.5-8.5); NEUTROPHILS % 55.5 % (36.0-66.0); PLATELET COUNT, AUTOMATED 387 10^3/uL (150-450); RED BLOOD COUNT 4.34 10^6/uL (4.00-5.40); WHITE BLOOD COUNT 9.5 10^3/uL (4.0-10.0)
[2024-08-06 16:48] VITALS: BP 139/83; TEMP 98.8; O2SAT 97
== END 2024-08-06 18:09 | disposition home or self-care (01) ==
LOC: EDBD 08:36 → M ED 08:36 → M ED INP 08:37 → M PCU 15:23
PROVIDERS: ADMIT Student in an Organized Health Care Education/Training Program; ATTEND Student in an Organized Health Care Education/Training Program
DX: E10.65 Type 1 diabetes mellitus with hyperglycemia (principal); F12.988 Cannabis use, unspecified with other cannabis-induced disorder; R11.2 Nausea with vomiting, unspecified; R10.13 Epigastric pain; D72.829 Elevated white blood cell count, unspecified; B95.7 Other staphylococcus as the cause of diseases classified elsewhere; F41.9 Anxiety disorder, unspecified; F32.A Depression, unspecified; I10 Essential (primary) hypertension; G43.909 Migraine, unspecified, not intractable, without status migrainosus; E28.2 Polycystic ovarian syndrome; Z79.4 Long term (current) use of insulin; Z79.899 Other long term (current) drug therapy
CPT/HCPCS: 36415; 71045; 74177; 80047; 80048; 80076; 80307; 81001; 82010; 82077; 82150; 82803; 83036; 83605; 83690; 83735; 83930; 84145; 84484; 85025; 85027; 86003; 86140; 87040; 87077; 87154; 87468; 87469; 87478; 87484; 87486; 87581; 87633; 87798; 87801; 93005; 93041; 94760; 96365; 96375; 96376; 99285; J0360; J1815; J2405; J2543; Q9967

== ENCOUNTER 2024-08-08 10:23 | Emergency (ER) | payer OTHER ==
[~2024-08-08] VITALS: Ht 154.9 cm; Wt 57.3 kg
[2024-08-08 11:27] LABS: APPEARANCE, URINE CLEAR (CLEAR); BACTERIA, URINE AUTO NEGATIVE (NEGATIVE); BILIRUBIN, URINE AUTO NEGATIVE (NEGATIVE); BLOOD, URINE BLOOD 2+ (NEGATIVE); COLOR, URINE STRAW (YELLOW); GLUCOSE, URINE (UA) AUTO 3+ mg/dL (NEGATIVE); KETONE, URINE AUTO 1+ mg/dL (NEGATIVE); LEUKOCYTE ESTERASE, URINE AUTO NEGATIVE (NEGATIVE); NITRITE, URINE AUTO NEGATIVE (NEGATIVE); PROTEIN, URINE AUTO NEGATIVE (NEGATIVE); RBC, URINE AUTO 2 /HPF (0-3); SPECIFIC GRAVITY URINE AUTO 1.024 (1.002-1.035); SQUAMOUS EPITHELIAL CELL UR AU 1 /HPF (0-6); UROBILINOGEN, URINE AUTO 0.2 mg/dL (0.0-2.0); WBC, URINE AUTO 1 /HPF (0-3)
[2024-08-08 12:21] LABS: VENOUS HCO3 16.2 MMOL/L (23.0-27.0); VENOUS O2 SATURATION 99.2 % (60.0-80.0); VENOUS PARTIAL PRESSURE CO2 23.7 mmHg (38.0-50.0); VENOUS PARTIAL PRESSURE O2 163.7 mmHg (30.0-50.0); VENOUS PH 7.452 UNITS (7.330-7.430); VENOUS STANDARD HCO3 19.6 MMOL/L; VENOUS TOTAL CO2 16.9 MMOL/L (24.0-28.0)
[2024-08-08 12:30] LABS: LIPASE 52 U/L (12-53)
[2024-08-08 12:32] LABS: ACETONE/KETONE 4.37 MMOL/L (0.02-0.27); ALBUMIN 4.5 G/DL (3.2-5.2); ALKALINE PHOSPHATASE 101 U/L (35-104); ALT/SGPT 26 U/L (7.0-40); AST/SGOT < 8 U/L (<34); BILIRUBIN,DIRECT 0.2 MG/DL (<0.4); BILIRUBIN,TOTAL 0.6 MG/DL (0.3-1.2); TOTAL PROTEIN 7.8 G/DL (5.7-8.2)
[2024-08-08] MEDS: LORazepam 2 MG/ML 1ML VIAL IV STA (12:42)
[2024-08-08] MEDS: METOCLOPRAMIDE INJ 10MG/2ML VIAL IV ONE (12:43)
[2024-08-08 12:44] LABS: OSMOLALITY SERUM 300 MOSM/KG (275-295)
[2024-08-08] MEDS: NS (Normal Saline) 0.9% 1,000 ML IV ONE (12:44)
[2024-08-08 12:47] LABS: BASO # 0.1 10^3/uL (0.0-0.2); BASO % 0.8 % (0.0-1.0); EOS # 0.1 10^3/uL (0.0-0.5); EOS % 0.5 % (0.0-3.0); HEMATOCRIT 36.2 % (36.0-47.0); LYMPH # 1.7 10^3/uL (1.5-5.0); MEAN CORPUSCULAR HGB CONC 33.1 g/dl (32.0-36.5); MEAN CORPUSCULAR VOLUME 81.3 fl (80.0-96.0); MONO # 0.4 10^3/uL (0.0-0.8); NEUTROPHILS # 12.1 10^3/uL (1.5-8.5); NEUTROPHILS % 83.4 % (36.0-66.0); PLATELET COUNT, AUTOMATED 501 10^3/uL (150-450); RED BLOOD COUNT 4.45 10^6/uL (4.00-5.40); WHITE BLOOD COUNT 14.5 10^3/uL (4.0-10.0)
[2024-08-08] MEDS: HumuLIN R (REGULAR) INSULIN (NovoLIN R) **100U/ML** PER UNIT IV ONE (13:32)
[2024-08-08 14:32] LABS: BLOOD UREA NITROGEN 16 MG/DL (9-23); CARBON DIOXIDE LEVEL 15 MMOL/L (20-31); CHLORIDE LEVEL 101 MMOL/L (98-107); CREATININE FOR GFR 0.58 MG/DL (0.55-1.30); GLOMERULAR FILTRATION RATE > 60.0 (>58); GLUCOSE, FASTING 382 MG/DL (60-100); POTASSIUM SERUM 4.8 MMOL/L (3.5-5.1); SODIUM LEVEL 139 MMOL/L (136-145)
[2024-08-08 15:53] LABS: BLOOD UREA NITROGEN 14 MG/DL (9-23); CALCIUM LEVEL 8.1 MG/DL (8.5-10.1); CARBON DIOXIDE LEVEL 23 MMOL/L (20-31); CHLORIDE LEVEL 105 MMOL/L (98-107); CREATININE FOR GFR 0.54 MG/DL (0.55-1.30); GLOMERULAR FILTRATION RATE > 60.0 (>58); GLUCOSE, FASTING 302 MG/DL (60-100); POTASSIUM SERUM 4.5 MMOL/L (3.5-5.1); SODIUM LEVEL 139 MMOL/L (136-145)
[2024-08-08 16:12] VITALS: BP 100/56; TEMP 96.9; O2SAT 99
== END 2024-08-08 16:23 | disposition home or self-care (01) ==
LOC: EDBD 10:23 → M ED 10:23
DX: K31.84 Gastroparesis (principal); E11.65 Type 2 diabetes mellitus with hyperglycemia; F12.10 Cannabis abuse, uncomplicated; I10 Essential (primary) hypertension; E28.2 Polycystic ovarian syndrome; F41.9 Anxiety disorder, unspecified; F32.A Depression, unspecified; Z88.8 Allergy status to other drugs, medicaments and biological substances; Z79.52 Long term (current) use of systemic steroids; Z79.4 Long term (current) use of insulin; Z79.899 Other long term (current) drug therapy
CPT/HCPCS: 80047; 80048; 80076; 81001; 82010; 82803; 83605; 83690; 83930; 85025; 96361; 96374; 96375; 99284; J1815; J2060; J2765

== ENCOUNTER 2024-09-02 08:38 | Inpatient (IN) | payer OTHER ==
[2024-09-02] VITALS (10 sets, daily range): BP systolic 86–141; BP diastolic 50–85; TEMP 98.6–99.2; O2SAT 92–98
[~2024-09-02] VITALS: Ht 154.9 cm; Wt 61.7 kg
[2024-09-02 09:42] LABS: VENOUS BASE EXCESS -5.1 (-2.0-2.0); VENOUS HCO3 16.5 MMOL/L (23.0-27.0); VENOUS O2 SATURATION 98.9 % (60.0-80.0); VENOUS PARTIAL PRESSURE CO2 22.8 mmHg (38.0-50.0); VENOUS PARTIAL PRESSURE O2 259.1 mmHg (30.0-50.0); VENOUS PH 7.477 UNITS (7.330-7.430); VENOUS STANDARD HCO3 20.3 MMOL/L; VENOUS TOTAL CO2 17.2 MMOL/L (24.0-28.0)
[2024-09-02 09:47] LABS: KETONE, URINE AUTO RFX 1+ mg/dL (NEGATIVE); LEUKOCYTE ESTERASE UR AUTO RFX NEGATIVE (NEGATIVE); NITRITE, URINE AUTO RFX NEGATIVE (NEGATIVE); RBC, URINE AUTO RFX 0 /HPF (0-3); SQUAM EPITHELIAL CELL UR AURFX 0 /HPF (0-6); WBC, URINE AUTO RFX 0 /HPF (0-3)
[2024-09-02 09:52] LABS: BASO # 0.1 10^3/uL (0.0-0.2); BASO % 0.8 % (0.0-1.0); EOS # 0.1 10^3/uL (0.0-0.5); EOS % 0.4 % (0.0-3.0); HEMATOCRIT 37.5 % (36.0-47.0); HEMOGLOBIN 12.3 g/dl (12.0-15.5); LYMPH # 2.1 10^3/uL (1.5-5.0); LYMPH % 11.2 % (24.0-44.0); MEAN CORPUSCULAR HEMOGLOBIN 26.2 pg (27.0-33.0); MEAN CORPUSCULAR HGB CONC 32.8 g/dl (32.0-36.5); MONO # 0.5 10^3/uL (0.0-0.8); MONO % 2.6 % (2.0-8.0); NEUTROPHILS # 15.6 10^3/uL (1.5-8.5); NEUTROPHILS % 84.6 % (36.0-66.0); PLATELET COUNT, AUTOMATED 422 10^3/uL (150-450); RED BLOOD COUNT 4.69 10^6/uL (4.00-5.40); WHITE BLOOD COUNT 18.4 10^3/uL (4.0-10.0)
[2024-09-02] MEDS: NS (Normal Saline) 0.9% 1,000 ML IV ONE ×2 (10:03→12:23)
[2024-09-02] MEDS: KETOROLAC 30 MG/ML 1ML VIAL IV ONE (10:07)
[2024-09-02] MEDS: METOCLOPRAMIDE INJ 10MG/2ML VIAL IV ONE (10:07)
[2024-09-02 10:10] LABS: AMPHETAMINES LEVEL URINE NEGATIVE (NEGATIVE); BARBITURATES URINE NEGATIVE (NEGATIVE); BENZODIAZEPINES URINE NEGATIVE (NEGATIVE); COCAINE METABOLITE URINE NEGATIVE (NEGATIVE); METHADONE URINE NEGATIVE (NEGATIVE); OPIATES URINE NEGATIVE (NEGATIVE); PHENCYCLIDINE URINE NEGATIVE (NEGATIVE)
[2024-09-02 10:15] LABS: CANNABINOIDS URINE POSITIVE (NEGATIVE)
[2024-09-02 10:16] LABS: HEMOGLOBIN A1c 10.7 % (4.0-6.0)
[2024-09-02 10:24] LABS: LIPASE 52 U/L (12-53)
[2024-09-02 10:26] LABS: ACETONE/KETONE 3.84 MMOL/L (0.02-0.27)
[2024-09-02 10:28] LABS: OSMOLALITY SERUM 308 MOSM/KG (275-295)
[2024-09-02 10:29] LABS: ALBUMIN 4.2 G/DL (3.2-5.2); ALKALINE PHOSPHATASE 141 U/L (35-104); ALT/SGPT 78 U/L (7.0-40); AST/SGOT 44 U/L (<34); BILIRUBIN,DIRECT 0.2 MG/DL (<0.4); BILIRUBIN,TOTAL 0.6 MG/DL (0.3-1.2); BLOOD UREA NITROGEN 20 MG/DL (9-23); CALCIUM LEVEL 9.1 MG/DL (8.5-10.1); CARBON DIOXIDE LEVEL 16 MMOL/L (20-31); CHLORIDE LEVEL 98 MMOL/L (98-107); CREATININE FOR GFR 0.57 MG/DL (0.55-1.30); GLOMERULAR FILTRATION RATE > 60.0 (>58); GLUCOSE, FASTING 577 MG/DL (60-100); MAGNESIUM LEVEL 1.9 MG/DL (1.8-2.4); PHOSPHORUS LEVEL 3.4 MG/DL (2.5-4.9); POTASSIUM SERUM 4.7 MMOL/L (3.5-5.1); SODIUM LEVEL 132 MMOL/L (136-145); TOTAL PROTEIN 7.4 G/DL (5.7-8.2)
[2024-09-02 10:31] LABS: HCG, SERUM QUALITATIVE NEGATIVE (NEGATIVE)
[2024-09-02] MEDS ORDERED: INSULIN IV RATE CHANGE DOCUMENTATION ML/HR XX SCH (10:35)
[2024-09-02] MEDS: MORPHINE 4 MG/ML 1ML VIAL IV PRN (10:43)
[2024-09-02] MEDS: HumuLIN R (REGULAR) INSULIN (NovoLIN R) **100U/ML** PER UNIT IV ONE (10:53)
[2024-09-02] MEDS: INSULIN REGULAR IN 0.9 % NACL 100 UNIT in IV 1 EA IV SCH ×2 (10:57→12:33)
[2024-09-02] MEDS ORDERED: HYDR-3363 PO (11:18)
[2024-09-02] MEDS ORDERED: BASA100I SC (11:18)
[2024-09-02] MEDS ORDERED: BUSP10TA PO (11:18)
[2024-09-02] MEDS ORDERED: HOME MED LIST COMPLETE! XX SCH (11:20)
[2024-09-02] MEDS ORDERED: PROCHLORPERAZINE 5MG TAB PO PRN (12:30)
[2024-09-02] MEDS ORDERED: ALBUTEROL 90 MCG/ACT 8GM HFA INHALER INH PRN (12:30)
[2024-09-02] MEDS ORDERED: SCOPOLAMINE 1MG TRANSDERMAL PATCH TOP PRN (12:30)
[2024-09-02] MEDS: INSULIN IV RATE CHANGE DOCUMENTATION ML/HR XX SCH (13:38)
[2024-09-02] MEDS: PARoxetine 20MG TABLET PO SCH (14:00)
[2024-09-02] MEDS: PANTOPRAZOLE 40MG VIAL IV SCH (14:00)
[2024-09-02] MEDS: ENOXAPARIN 40MG/0.4ML SYRINGE (J1650 PER 10MG) SC SCH (14:01)
[2024-09-02 14:36] LABS: LIPASE 47 U/L (12-53)
[2024-09-02] MEDS: KCL 40MEQ IN D5/0.45NS 1000ML 1,000 ML IV SCH (14:52)
[2024-09-02 14:57] LABS: BLOOD UREA NITROGEN 17 MG/DL (9-23); CALCIUM LEVEL 7.8 MG/DL (8.5-10.1); CARBON DIOXIDE LEVEL 22 MMOL/L (20-31); CHLORIDE LEVEL 103 MMOL/L (98-107); GLOMERULAR FILTRATION RATE > 60.0 (>58); GLUCOSE, FASTING 169 MG/DL (60-100); MAGNESIUM LEVEL 1.5 MG/DL (1.8-2.4); PHOSPHORUS LEVEL 2.2 MG/DL (2.5-4.9); POTASSIUM SERUM 3.9 MMOL/L (3.5-5.1); SODIUM LEVEL 135 MMOL/L (136-145)
[2024-09-02] MEDS ORDERED: GLUCAGON INJ 1MG VIAL SC PRN ×2 (15:05→17:10)
[2024-09-02] MEDS ORDERED: DEXTROSE 50% 50ML SYRINGE IV PRN ×2 (15:05→17:10)
[2024-09-02] MEDS ORDERED: GLUCOSE 4 GM CHEW PO PRN ×2 (15:05→17:10)
[2024-09-02] MEDS: NORCO, ANEXSIA 5/325MG TABLET (HYDROcodone/ACETAMINOPHEN) PO PRN (16:13)
[2024-09-02] MEDS: LEVEMIR (INSULIN DETEMIR) 1 UNITS/0.01ML SC ONE ×2 (16:14→21:04)
[2024-09-02] MEDS: CALCIUM GLUCONATE 1,000 MG in DEXTROSE 5% (D5W) MINI-BAG PLU 100 ML IV ONE (16:14)
[2024-09-02] MEDS: INSULIN LISPRO (NovoLOG) PER UNIT SC SCH ×2 (17:30→21:03)
[2024-09-02] MEDS: MAG SULF 1GM/100ML (MAG RUN) 1 GM in IV 1 EA IV ONE (17:31)
[2024-09-02 18:37] LABS: BLOOD UREA NITROGEN 15 MG/DL (9-23); CALCIUM LEVEL 8.4 MG/DL (8.5-10.1); CARBON DIOXIDE LEVEL 19 MMOL/L (20-31); CHLORIDE LEVEL 100 MMOL/L (98-107); GLOMERULAR FILTRATION RATE > 60.0 (>58); GLUCOSE, FASTING 363 MG/DL (60-100); PHOSPHORUS LEVEL 3.7 MG/DL (2.5-4.9); POTASSIUM SERUM 4.6 MMOL/L (3.5-5.1); SODIUM LEVEL 132 MMOL/L (136-145)
[2024-09-02] MEDS: SODIUM PHOSPHATE INJ 30 MMOL in D5W 500 ML IV ONE (18:39)
[2024-09-02] MEDS: ALPRAZolam 0.5 MG TAB PO PRN (18:45)
[2024-09-02] MEDS: busPIRone 10 MG TAB PO SCH (21:04)
[2024-09-03 00:03] VITALS: BP 127/75; TEMP 97.9; O2SAT 95
[2024-09-03 00:47] LABS: BLOOD UREA NITROGEN 14 MG/DL (9-23); CALCIUM LEVEL 8.5 MG/DL (8.5-10.1); CARBON DIOXIDE LEVEL 26 MMOL/L (20-31); CHLORIDE LEVEL 101 MMOL/L (98-107); CREATININE FOR GFR 0.62 MG/DL (0.55-1.30); GLOMERULAR FILTRATION RATE > 60.0 (>58); GLUCOSE, FASTING 191 MG/DL (60-100); MAGNESIUM LEVEL 1.9 MG/DL (1.8-2.4); POTASSIUM SERUM 3.7 MMOL/L (3.5-5.1); SODIUM LEVEL 134 MMOL/L (136-145)
[2024-09-03 04:00] VITALS: BP 157/86; TEMP 98.8; O2SAT 96
[2024-09-03] MEDS: METOCLOPRAMIDE 10MG TAB PO PRN (04:32)
[2024-09-03] MEDS: SUMAtriptan SUCCINATE 25MG TABLET PO PRN (04:46)
[2024-09-03 05:39] LABS: BASO # 0.1 10^3/uL (0.0-0.2); BASO % 0.8 % (0.0-1.0); EOS # 0.2 10^3/uL (0.0-0.5); EOS % 2.2 % (0.0-3.0); HEMATOCRIT 35.2 % (36.0-47.0); HEMOGLOBIN 11.6 g/dl (12.0-15.5); LYMPH # 3.3 10^3/uL (1.5-5.0); LYMPH % 30.6 % (24.0-44.0); MEAN CORPUSCULAR HEMOGLOBIN 26.1 pg (27.0-33.0); MEAN CORPUSCULAR VOLUME 79.3 fl (80.0-96.0); MONO # 0.6 10^3/uL (0.0-0.8); MONO % 5.6 % (2.0-8.0); NEUTROPHILS # 6.6 10^3/uL (1.5-8.5); NEUTROPHILS % 60.4 % (36.0-66.0); PLATELET COUNT, AUTOMATED 452 10^3/uL (150-450); RED BLOOD COUNT 4.44 10^6/uL (4.00-5.40); WHITE BLOOD COUNT 10.9 10^3/uL (4.0-10.0)
[2024-09-03 06:11] LABS: BLOOD UREA NITROGEN 12 MG/DL (9-23); CALCIUM LEVEL 8.6 MG/DL (8.5-10.1); CARBON DIOXIDE LEVEL 23 MMOL/L (20-31); CHLORIDE LEVEL 102 MMOL/L (98-107); CREATININE FOR GFR 0.53 MG/DL (0.55-1.30); GLOMERULAR FILTRATION RATE > 60.0 (>58); GLUCOSE, FASTING 131 MG/DL (60-100); MAGNESIUM LEVEL 1.8 MG/DL (1.8-2.4); PHOSPHORUS LEVEL 4.4 MG/DL (2.5-4.9); SODIUM LEVEL 137 MMOL/L (136-145)
[2024-09-03] MEDS: ONDANSETRON 4MG 2ML VIAL IV PRN (07:39)
[2024-09-03 08:00] VITALS: BP 156/92; TEMP 99.2; O2SAT 97
[2024-09-03] MEDS: ATORVASTATIN 20 MG TAB PO SCH (09:46)
[2024-09-03] MEDS: LEVEMIR (INSULIN DETEMIR) 1 UNITS/0.01ML SC SCH (09:49)
[2024-09-03 12:00] VITALS: BP 152/90; TEMP 98.9; O2SAT 96
[2024-09-03 16:00] VITALS: BP 130/79; TEMP 98.9; O2SAT 97
[2024-09-03] MEDS ORDERED: LanTUS (INSULIN GLARGINE INJ) 1 UNITS/0.01 ML SC ONE (21:00)
[2024-09-04] MEDS ORDERED: LanTUS (INSULIN GLARGINE INJ) 1 UNITS/0.01 ML SC SCH (09:00)
== END 2024-09-03 17:37 | disposition home or self-care (01) | DRG 420 ==
LOC: EDBD 08:38 → M ED 08:38 → M ED INP 12:05 → M ICU 13:30
PROVIDERS: ADMIT Internal Medicine Pulmonary Disease; ATTEND Internal Medicine Pulmonary Disease
DX: E11.10 Type 2 diabetes mellitus with ketoacidosis without coma (principal); K31.84 Gastroparesis; I10 Essential (primary) hypertension; E78.5 Hyperlipidemia, unspecified; F32.A Depression, unspecified; G43.909 Migraine, unspecified, not intractable, without status migrainosus; J45.909 Unspecified asthma, uncomplicated; K21.9 Gastro-esophageal reflux disease without esophagitis; F12.90 Cannabis use, unspecified, uncomplicated; Z87.891 Personal history of nicotine dependence; F41.9 Anxiety disorder, unspecified; E28.2 Polycystic ovarian syndrome; Z88.8 Allergy status to other drugs, medicaments and biological substances; Z79.899 Other long term (current) drug therapy; E11.43 Type 2 diabetes mellitus with diabetic autonomic (poly)neuropathy

== ENCOUNTER 2024-09-09 21:20 | Inpatient (IN) | payer OTHER ==
[~2024-09-09] VITALS: Ht 160 cm; Wt 59.1 kg
[~2024-09-09 21:20] MED LIST changes: +BUSP10TA PO; +HYDR-3363 PO
[2024-09-09] MEDS: KETOROLAC 30 MG/ML 1ML VIAL IV ONE (22:02)
[2024-09-09] MEDS: METOCLOPRAMIDE INJ 10MG/2ML VIAL IV ONE (22:02)
[2024-09-09 22:06] LABS: VENOUS HCO3 21.9 MMOL/L (23.0-27.0); VENOUS O2 SATURATION 56.1 % (60.0-80.0); VENOUS PARTIAL PRESSURE CO2 38.8 mmHg (38.0-50.0); VENOUS PARTIAL PRESSURE O2 28.5 mmHg (30.0-50.0); VENOUS PH 7.369 UNITS (7.330-7.430); VENOUS TOTAL CO2 23.1 MMOL/L (24.0-28.0)
[2024-09-09 22:08] LABS: APPEARANCE, URINE CLEAR (CLEAR); BACTERIA, URINE AUTO NEGATIVE (NEGATIVE); BILIRUBIN, URINE AUTO NEGATIVE (NEGATIVE); BLOOD, URINE BLOOD 1+ (NEGATIVE); COLOR, URINE STRAW (YELLOW); GLUCOSE, URINE (UA) AUTO 3+ mg/dL (NEGATIVE); KETONE, URINE AUTO 2+ mg/dL (NEGATIVE); LEUKOCYTE ESTERASE, URINE AUTO NEGATIVE (NEGATIVE); NITRITE, URINE AUTO NEGATIVE (NEGATIVE); PROTEIN, URINE AUTO 2+ mg/dL (NEGATIVE); RBC, URINE AUTO 1 /HPF (0-3); SPECIFIC GRAVITY URINE AUTO 1.017 (1.002-1.035); SQUAMOUS EPITHELIAL CELL UR AU 1 /HPF (0-6); UROBILINOGEN, URINE AUTO 0.2 mg/dL (0.0-2.0); WBC, URINE AUTO 2 /HPF (0-3)
[2024-09-09 22:10] LABS: BASO # 0.1 10^3/uL (0.0-0.2); BASO % 0.5 % (0.0-1.0); EOS % 0.2 % (0.0-3.0); HEMATOCRIT 44.1 % (36.0-47.0); LYMPH % 5.7 % (24.0-44.0); MEAN CORPUSCULAR HEMOGLOBIN 25.4 pg (27.0-33.0); MEAN CORPUSCULAR HGB CONC 31.7 g/dl (32.0-36.5); MONO # 0.3 10^3/uL (0.0-0.8); MONO % 1.9 % (2.0-8.0); NEUTROPHILS # 16.3 10^3/uL (1.5-8.5); NEUTROPHILS % 91.4 % (36.0-66.0); PLATELET COUNT, AUTOMATED 677 10^3/uL (150-450); RED BLOOD COUNT 5.51 10^6/uL (4.00-5.40); WHITE BLOOD COUNT 17.8 10^3/uL (4.0-10.0)
[2024-09-09] MEDS: NS (Normal Saline) 0.9% 1,000 ML IV ONE (22:31)
[2024-09-09] MEDS: HALOPERIDOL LACTATE 5MG/ML VIAL IV ONE (22:31)
[2024-09-09] MEDS: MORPHINE 2 MG/ML 1ML VIAL IV ONE (22:32)
[2024-09-09] MEDS: HumuLIN R (REGULAR) INSULIN (NovoLIN R) **100U/ML** PER UNIT SC STA (22:32)
[2024-09-10 00:06] LABS: CK-MB VALUE MASS < 1.0 NG/ML (<3.6)
[2024-09-10 00:07] LABS: ALBUMIN 4.4 G/DL (3.2-5.2); ALKALINE PHOSPHATASE 120 U/L (35-104); ALT/SGPT 36 U/L (7.0-40); AST/SGOT 13 U/L (<34); BILIRUBIN,DIRECT 0.2 MG/DL (<0.4); BILIRUBIN,TOTAL 0.5 MG/DL (0.3-1.2); BLOOD UREA NITROGEN 9 MG/DL (9-23); CALCIUM LEVEL 9.2 MG/DL (8.5-10.1); CARBON DIOXIDE LEVEL 20 MMOL/L (20-31); CHLORIDE LEVEL 99 MMOL/L (98-107); CPK CREATINE PHOSPHOKINASE 58 U/L (34-145); CREATININE FOR GFR 0.59 MG/DL (0.55-1.30); GLOMERULAR FILTRATION RATE > 60.0 (>58); GLUCOSE, FASTING 366 MG/DL (60-100); MAGNESIUM LEVEL 1.8 MG/DL (1.8-2.4); MB/CK RELATIVE INDEX 1.72 (< OR =4); POTASSIUM SERUM 3.9 MMOL/L (3.5-5.1); SODIUM LEVEL 136 MMOL/L (136-145); TOTAL PROTEIN 7.8 G/DL (5.7-8.2)
[2024-09-10 00:14] LABS: ACETONE/KETONE > 4.50 MMOL/L (0.02-0.27)
[2024-09-10 01:22] LABS: LIPASE 30 U/L (12-53)
[2024-09-10] MEDS ORDERED: MOM 30ML SUSPENSION UDC PO PRN (02:10)
[2024-09-10] MEDS ORDERED: DEXTROSE 50% 50ML SYRINGE IV PRN (02:15)
[2024-09-10] MEDS ORDERED: GLUCOSE 4 GM CHEW PO PRN (02:15)
[2024-09-10] MEDS ORDERED: GLUCAGON INJ 1MG VIAL SC PRN (02:15)
[2024-09-10] MEDS ORDERED: HOME MED LIST COMPLETE! XX SCH (02:35)
[2024-09-10] MEDS: METOCLOPRAMIDE INJ 10MG/2ML VIAL IV SCH (04:12)
[2024-09-10 06:28] LABS: HEMATOCRIT 38.4 % (36.0-47.0); HEMOGLOBIN 12.4 g/dl (12.0-15.5); MEAN CORPUSCULAR HEMOGLOBIN 25.9 pg (27.0-33.0); MEAN CORPUSCULAR HGB CONC 32.3 g/dl (32.0-36.5); MEAN CORPUSCULAR VOLUME 80.3 fl (80.0-96.0); PLATELET COUNT, AUTOMATED 628 10^3/uL (150-450); RED BLOOD COUNT 4.78 10^6/uL (4.00-5.40); WHITE BLOOD COUNT 15.4 10^3/uL (4.0-10.0)
[2024-09-10 07:14] LABS: ALBUMIN 4.3 G/DL (3.2-5.2); ALKALINE PHOSPHATASE 119 U/L (35-104); ALT/SGPT 31 U/L (7.0-40); AST/SGOT 16 U/L (<34); BILIRUBIN,TOTAL 0.6 MG/DL (0.3-1.2); BLOOD UREA NITROGEN 13 MG/DL (9-23); CALCIUM LEVEL 9.5 MG/DL (8.5-10.1); CARBON DIOXIDE LEVEL 18 MMOL/L (20-31); CHLORIDE LEVEL 95 MMOL/L (98-107); GLOMERULAR FILTRATION RATE > 60.0 (>58); GLUCOSE, FASTING 359 MG/DL (60-100); POTASSIUM SERUM 4.5 MMOL/L (3.5-5.1); SODIUM LEVEL 133 MMOL/L (136-145); TOTAL PROTEIN 7.4 G/DL (5.7-8.2)
[2024-09-10] MEDS: INSULIN LISPRO (NovoLOG) PER UNIT SC SCH ×2 (07:30→21:44)
[2024-09-10] MEDS ORDERED: ALBUTEROL 90 MCG/ACT 8GM HFA INHALER INH PRN (09:10)
[2024-09-10] MEDS: SUMAtriptan SUCCINATE 25MG TABLET PO PRN (09:48)
[2024-09-10] MEDS: SODIUM BICARBONATE 325 MG TAB PO SCH (09:49)
[2024-09-10] MEDS: ENOXAPARIN 40MG/0.4ML SYRINGE (J1650 PER 10MG) SC SCH (09:50)
[2024-09-10] MEDS: ATORVASTATIN 20 MG TAB PO SCH (09:50)
[2024-09-10] MEDS: HALOPERIDOL LACTATE 5MG/ML VIAL IM ONE (09:51)
[2024-09-10] MEDS: HumuLIN R (REGULAR) INSULIN (NovoLIN R) **100U/ML** PER UNIT IV STA (09:52)
[2024-09-10] MEDS: ALPRAZolam 0.5 MG TAB PO PRN (13:33)
[2024-09-10] MEDS: ACETAMINOPHEN 325 MG TAB PO PRN (13:34)
[2024-09-10] MEDS: SODIUM BICARBONATE 75 MEQ in NS 0.45% 1,000 ML IV SCH (15:02)
[2024-09-10 15:30] VITALS: BP 109/70; TEMP 97.5; O2SAT 97
[2024-09-10] MEDS: SCOPOLAMINE 1MG TRANSDERMAL PATCH TOP PRN (16:00)
[2024-09-10] MEDS: NORCO, ANEXSIA 5/325MG TABLET (HYDROcodone/ACETAMINOPHEN) PO PRN (16:01)
[2024-09-10] MEDS: PANTOPRAZOLE 40MG TAB (PROTONIX) PO SCH (16:56)
[2024-09-10 17:47] LABS: BLOOD UREA NITROGEN 16 MG/DL (9-23); CALCIUM LEVEL 9.1 MG/DL (8.5-10.1); CARBON DIOXIDE LEVEL 22 MMOL/L (20-31); CHLORIDE LEVEL 97 MMOL/L (98-107); CREATININE FOR GFR 0.66 MG/DL (0.55-1.30); GLOMERULAR FILTRATION RATE > 60.0 (>58); GLUCOSE, FASTING 193 MG/DL (60-100); POTASSIUM SERUM 4.4 MMOL/L (3.5-5.1); SODIUM LEVEL 132 MMOL/L (136-145)
[2024-09-10 20:00] VITALS: BP 100/60; TEMP 97; O2SAT 95
[2024-09-10] MEDS: busPIRone 10 MG TAB PO SCH (21:33)
[2024-09-10] MEDS: LanTUS (INSULIN GLARGINE INJ) 1 UNITS/0.01 ML SC SCH (21:38)
[2024-09-11 04:00] VITALS: BP 114/75; TEMP 98; O2SAT 94
[2024-09-11] MEDS: PROMETHAZINE 25MG/ML 1ML VIAL IV PRN (05:28)
[2024-09-11] MEDS ORDERED: CAPSAICIN 0.025% CR 60 GM TOP PRN (06:00)
[2024-09-11] MEDS: HALOPERIDOL LACTATE 5MG/ML VIAL IM ONE (06:02)
[2024-09-11 06:24] LABS: VENOUS BASE EXCESS -5.3 (-2.0-2.0); VENOUS HCO3 18.5 MMOL/L (23.0-27.0); VENOUS O2 SATURATION 91.9 % (60.0-80.0); VENOUS PARTIAL PRESSURE CO2 31.3 mmHg (38.0-50.0); VENOUS PARTIAL PRESSURE O2 60.7 mmHg (30.0-50.0); VENOUS TOTAL CO2 19.5 MMOL/L (24.0-28.0)
[2024-09-11 06:50] LABS: BASO # 0.1 10^3/uL (0.0-0.2); BASO % 0.8 % (0.0-1.0); EOS # 0.2 10^3/uL (0.0-0.5); EOS % 1.3 % (0.0-3.0); LYMPH # 3.4 10^3/uL (1.5-5.0); LYMPH % 23.6 % (24.0-44.0); MEAN CORPUSCULAR HEMOGLOBIN 25.4 pg (27.0-33.0); MEAN CORPUSCULAR HGB CONC 31.7 g/dl (32.0-36.5); MEAN CORPUSCULAR VOLUME 80.2 fl (80.0-96.0); MONO # 0.9 10^3/uL (0.0-0.8); MONO % 5.9 % (2.0-8.0); NEUTROPHILS # 9.8 10^3/uL (1.5-8.5); PLATELET COUNT, AUTOMATED 472 10^3/uL (150-450); RED BLOOD COUNT 5.11 10^6/uL (4.00-5.40); WHITE BLOOD COUNT 14.5 10^3/uL (4.0-10.0)
[2024-09-11 06:54] LABS: ACETONE/KETONE 4.36 MMOL/L (0.02-0.27); ALBUMIN 4.4 G/DL (3.2-5.2); BILIRUBIN,DIRECT 0.2 MG/DL (<0.4); BILIRUBIN,TOTAL 0.5 MG/DL (0.3-1.2); BLOOD UREA NITROGEN 17 MG/DL (9-23); CALCIUM LEVEL 9.1 MG/DL (8.5-10.1); CARBON DIOXIDE LEVEL 19 MMOL/L (20-31); CHLORIDE LEVEL 98 MMOL/L (98-107); CREATININE FOR GFR 0.56 MG/DL (0.55-1.30); GLOMERULAR FILTRATION RATE > 60.0 (>58); GLUCOSE, FASTING 336 MG/DL (60-100); MAGNESIUM LEVEL 1.8 MG/DL (1.8-2.4); SODIUM LEVEL 133 MMOL/L (136-145); TOTAL PROTEIN 7.7 G/DL (5.7-8.2)
[2024-09-11] MEDS ORDERED: NALOXONE INJ 0.4MG/1ML VIAL IV PRN (07:50)
[2024-09-11] MEDS: NS (Normal Saline) 0.9% 1,000 ML IV ONE ×3 (07:56→12:39)
[2024-09-11] MEDS: HYDROMORPHONE HCL 0.5 MG/ 0.5 ML SYRINGE IV ONE (08:01)
[2024-09-11] MEDS: KETOROLAC 30 MG/ML 1ML VIAL IV ONE (08:06)
[2024-09-11] MEDS: LanTUS (INSULIN GLARGINE INJ) 1 UNITS/0.01 ML SC ONE (08:06)
[2024-09-11] MEDS ORDERED: LanTUS (INSULIN GLARGINE INJ) 1 UNITS/0.01 ML SC SCH (09:00)
[2024-09-11] MEDS ORDERED: PARoxetine 20MG TABLET PO SCH (09:00)
[2024-09-11 09:05] LABS: KETONE, URINE AUTO RFX 2+ mg/dL (NEGATIVE); LEUKOCYTE ESTERASE UR AUTO RFX NEGATIVE (NEGATIVE); NITRITE, URINE AUTO RFX NEGATIVE (NEGATIVE); RBC, URINE AUTO RFX 0 /HPF (0-3); SQUAM EPITHELIAL CELL UR AURFX 1 /HPF (0-6); WBC, URINE AUTO RFX 0 /HPF (0-3)
[2024-09-11] MEDS: INSULIN LISPRO (NovoLOG) PER UNIT SC STA (09:15)
[2024-09-11] MEDS: PROMETHAZINE 25MG/ML 1ML VIAL IV SCH (09:15)
[2024-09-11] MEDS: ACETAMINOPHEN *IV* 1,000 MG in IV 1 EA IV ONE (11:21)
[2024-09-11] MEDS: METOCLOPRAMIDE INJ 10MG/2ML VIAL IV SCH (11:21)
[2024-09-11] MEDS: INSULIN LISPRO (NovoLOG) PER UNIT SC SCH ×2 (12:00→21:38)
[2024-09-11 12:30] VITALS: BP 97/57; TEMP 97.5; O2SAT 99
[2024-09-11] MEDS: MIDODRINE 5 MG TAB PO ONE ×2 (12:37→17:07)
[2024-09-11] MEDS: PERCOCET 5MG/325MG TAB PO ONE (12:39)
[2024-09-11 12:51] LABS: URINE PREG TEST NEGATIVE (NEGATIVE)
[2024-09-11 13:03] LABS: BLOOD UREA NITROGEN 14 MG/DL (9-23); CALCIUM LEVEL 8.5 MG/DL (8.5-10.1); CARBON DIOXIDE LEVEL 21 MMOL/L (20-31); CHLORIDE LEVEL 103 MMOL/L (98-107); CREATININE FOR GFR 0.54 MG/DL (0.55-1.30); GLOMERULAR FILTRATION RATE > 60.0 (>58); GLUCOSE, FASTING 186 MG/DL (60-100); POTASSIUM SERUM 4.2 MMOL/L (3.5-5.1); SODIUM LEVEL 138 MMOL/L (136-145)
[2024-09-11] MEDS ORDERED: SENOKOT S TAB PO PRN (15:40)
[2024-09-11 16:52] LABS: ACETONE/KETONE 2.03 MMOL/L (0.02-0.27); BLOOD UREA NITROGEN 12 MG/DL (9-23); CALCIUM LEVEL 8.4 MG/DL (8.5-10.1); CARBON DIOXIDE LEVEL 23 MMOL/L (20-31); CHLORIDE LEVEL 104 MMOL/L (98-107); CREATININE FOR GFR 0.69 MG/DL (0.55-1.30); GLOMERULAR FILTRATION RATE > 60.0 (>58); GLUCOSE, FASTING 153 MG/DL (60-100); SODIUM LEVEL 138 MMOL/L (136-145)
[2024-09-11] MEDS: KETOROLAC 30 MG/ML 1ML VIAL IV SCH (17:08)
[2024-09-11] MEDS: D5W/0.45% SODIUM CHLORIDE 1,000 ML IV SCH (18:06)
[2024-09-11 20:00] VITALS: BP 100/58; TEMP 97.7; O2SAT 99
[2024-09-11] MEDS: PERCOCET 5MG/325MG TAB PO PRN (21:37)
[2024-09-11] MEDS: NS 500 ML IV ONE (23:55)
[2024-09-12 00:43] LABS: ACETONE/KETONE 0.05 MMOL/L (0.02-0.27); BLOOD UREA NITROGEN 14 MG/DL (9-23); CALCIUM LEVEL 7.8 MG/DL (8.5-10.1); CARBON DIOXIDE LEVEL 23 MMOL/L (20-31); CHLORIDE LEVEL 106 MMOL/L (98-107); CREATININE FOR GFR 0.67 MG/DL (0.55-1.30); GLOMERULAR FILTRATION RATE > 60.0 (>58); GLUCOSE, FASTING 279 MG/DL (60-100); POTASSIUM SERUM 3.7 MMOL/L (3.5-5.1); SODIUM LEVEL 137 MMOL/L (136-145)
[2024-09-12] MEDS: LanTUS (INSULIN GLARGINE INJ) 1 UNITS/0.01 ML SC ONE (01:24)
[2024-09-12 03:52] VITALS: BP 109/73; TEMP 97.9; O2SAT 98
[2024-09-12 05:53] LABS: HEMATOCRIT 40.5 % (36.0-47.0); HEMOGLOBIN 12.6 g/dl (12.0-15.5); MEAN CORPUSCULAR HEMOGLOBIN 25.5 pg (27.0-33.0); MEAN CORPUSCULAR HGB CONC 31.1 g/dl (32.0-36.5); PLATELET COUNT, AUTOMATED 474 10^3/uL (150-450); RED BLOOD COUNT 4.94 10^6/uL (4.00-5.40); WHITE BLOOD COUNT 11.3 10^3/uL (4.0-10.0)
[2024-09-12 06:03] LABS: ACETONE/KETONE 0.09 MMOL/L (0.02-0.27); BLOOD UREA NITROGEN 13 MG/DL (9-23); CALCIUM LEVEL 8.8 MG/DL (8.5-10.1); CARBON DIOXIDE LEVEL 21 MMOL/L (20-31); CHLORIDE LEVEL 108 MMOL/L (98-107); CREATININE FOR GFR 0.58 MG/DL (0.55-1.30); GLOMERULAR FILTRATION RATE > 60.0 (>58); GLUCOSE, FASTING 107 MG/DL (60-100); POTASSIUM SERUM 4.1 MMOL/L (3.5-5.1); SODIUM LEVEL 140 MMOL/L (136-145)
[2024-09-12 06:21] LABS: ANISOCYTOSIS 1+; ATYPICAL LYMPH 6 % (0-5); EOSINOPHILS 1 % (0-3); LYMPHOCYTES 49 % (16-44); MONOCYTES 4 % (0-5); NEUTROPHILS 40 % (28-66); PLATELET ESTIMATE NORMAL (NORMAL)
[2024-09-12 06:22] LABS: POIKILOCYTOSIS 1+; POLYCHROMASIA 1+
[2024-09-12 08:00] VITALS: BP 199/118
[2024-09-12] MEDS ORDERED: KETOROLAC 30 MG/ML 1ML VIAL IV ONE (08:25)
[2024-09-12] MEDS ORDERED: METOCLOPRAMIDE INJ 10MG/2ML VIAL IV ONE (08:30)
[2024-09-12] MEDS: MORPHINE 10 MG/ML 1ML VIAL IV ONE (08:53)
[2024-09-12] MEDS: NS (Normal Saline) 0.9% 1,000 ML IV ONE (08:54)
[2024-09-12] MEDS: ACETAMINOPHEN *IV* 1,000 MG in IV 1 EA IV ONE (09:03)
[2024-09-12] MEDS: LanTUS (INSULIN GLARGINE INJ) 1 UNITS/0.01 ML SC SCH (09:04)
[2024-09-12 10:15] VITALS: BP 102/67
[2024-09-12] MEDS: diphenhydrAMINE 50MG/ML VIAL IV ONE (10:19)
[2024-09-12] MEDS: PANTOPRAZOLE 40MG VIAL IV ONE (10:19)
[2024-09-12] MEDS: KETOROLAC 30 MG/ML 1ML VIAL IV ONE (10:20)
[2024-09-12] MEDS: SUCRALFATE SUSP 1GM/10ML UD PO ONE (10:31)
[2024-09-12 10:32] VITALS: BP 102/67
[2024-09-12 12:00] VITALS: BP 102/67; TEMP 97.5; O2SAT 100
[2024-09-12 12:35] LABS: BLOOD UREA NITROGEN 7 MG/DL (9-23); CALCIUM LEVEL 8.1 MG/DL (8.5-10.1); CARBON DIOXIDE LEVEL 26 MMOL/L (20-31); CHLORIDE LEVEL 108 MMOL/L (98-107); CREATININE FOR GFR 0.52 MG/DL (0.55-1.30); GLOMERULAR FILTRATION RATE > 60.0 (>58); GLUCOSE, FASTING 195 MG/DL (60-100); POTASSIUM SERUM 3.7 MMOL/L (3.5-5.1); SODIUM LEVEL 142 MMOL/L (136-145)
[2024-09-12 12:36] LABS: ACETONE/KETONE 0.67 MMOL/L (0.02-0.27)
[2024-09-12] MEDS: PROMETHAZINE 25 MG TAB PO SCH (14:23)
[2024-09-12] MEDS: PERCOCET 5MG/325MG TAB PO SCH (14:24)
[2024-09-12] MEDS: METOCLOPRAMIDE 10MG TAB PO SCH (17:25)
[2024-09-12] MEDS: LR 1,000 ML IV SCH (17:25)
[2024-09-12] MEDS: KETOROLAC 30 MG/ML 1ML VIAL IV SCH (17:33)
[2024-09-12 19:16] LABS: BLOOD UREA NITROGEN 8 MG/DL (9-23); CALCIUM LEVEL 8.5 MG/DL (8.5-10.1); CARBON DIOXIDE LEVEL 25 MMOL/L (20-31); CHLORIDE LEVEL 108 MMOL/L (98-107); CREATININE FOR GFR 0.76 MG/DL (0.55-1.30); GLOMERULAR FILTRATION RATE > 60.0 (>58); GLUCOSE, FASTING 95 MG/DL (60-100); POTASSIUM SERUM 3.4 MMOL/L (3.5-5.1); SODIUM LEVEL 145 MMOL/L (136-145)
[2024-09-12 19:18] LABS: ACETONE/KETONE 0.08 MMOL/L (0.02-0.27)
[2024-09-12 19:55] VITALS: BP 106/71; TEMP 97.9; O2SAT 98
[2024-09-12] MEDS: POTASSIUM CHLORIDE 10MEQ SR TABLET PO SCH (20:58)
[2024-09-13 03:34] VITALS: BP 104/66; TEMP 97.7; O2SAT 100
[2024-09-13 06:22] LABS: BASO # 0.1 10^3/uL (0.0-0.2); BASO % 1.2 % (0.0-1.0); EOS # 0.1 10^3/uL (0.0-0.5); EOS % 1.5 % (0.0-3.0); HEMATOCRIT 35.2 % (36.0-47.0); HEMOGLOBIN 11.1 g/dl (12.0-15.5); LYMPH # 3.3 10^3/uL (1.5-5.0); LYMPH % 45.1 % (24.0-44.0); MEAN CORPUSCULAR HEMOGLOBIN 25.5 pg (27.0-33.0); MEAN CORPUSCULAR HGB CONC 31.5 g/dl (32.0-36.5); MEAN CORPUSCULAR VOLUME 80.7 fl (80.0-96.0); MONO # 0.5 10^3/uL (0.0-0.8); MONO % 6.6 % (2.0-8.0); NEUTROPHILS # 3.3 10^3/uL (1.5-8.5); NEUTROPHILS % 45.3 % (36.0-66.0); PLATELET COUNT, AUTOMATED 414 10^3/uL (150-450); RED BLOOD COUNT 4.36 10^6/uL (4.00-5.40); WHITE BLOOD COUNT 7.3 10^3/uL (4.0-10.0)
[2024-09-13 08:00] VITALS: BP 153/96; TEMP 97.2; O2SAT 97
[2024-09-13] MEDS ORDERED: INSULANT SC (09:47)
[2024-09-13] MEDS ORDERED: METO10TA2 PO (09:48)
[2024-09-13 10:53] LABS: MAGNESIUM LEVEL 1.4 MG/DL (1.8-2.4); POTASSIUM SERUM 4.1 MMOL/L (3.5-5.1)
[2024-09-13] MEDS: MAGNESIUM OXIDE 400MG TAB (MAG-OX) PO ONE (11:48)
== END 2024-09-13 12:13 | disposition home or self-care (01) | DRG 48 ==
LOC: M ED 21:20 → M ED INP 21:21 → M MSPAV 09-10 15:29 → OBSVTOIN 09-11 16:00
PROVIDERS: ADMIT Family Medicine; ATTEND General Practice
DX: E10.43 Type 1 diabetes mellitus with diabetic autonomic (poly)neuropathy (principal); E10.10 Type 1 diabetes mellitus with ketoacidosis without coma; I10 Essential (primary) hypertension; E87.1 Hypo-osmolality and hyponatremia; D72.829 Elevated white blood cell count, unspecified; I16.0 Hypertensive urgency; E78.5 Hyperlipidemia, unspecified; Z79.4 Long term (current) use of insulin; J45.909 Unspecified asthma, uncomplicated; G43.909 Migraine, unspecified, not intractable, without status migrainosus; E28.2 Polycystic ovarian syndrome; F12.988 Cannabis use, unspecified with other cannabis-induced disorder; R11.2 Nausea with vomiting, unspecified; Z87.891 Personal history of nicotine dependence; F41.9 Anxiety disorder, unspecified; K21.9 Gastro-esophageal reflux disease without esophagitis; F32.A Depression, unspecified; Z88.8 Allergy status to other drugs, medicaments and biological substances; Z79.899 Other long term (current) drug therapy; E10.65 Type 1 diabetes mellitus with hyperglycemia

== ENCOUNTER 2024-09-20 05:25 | Inpatient (IN) | payer MEDICAID, OTHER ==
[~2024-09-20] VITALS: Ht 154.9 cm; Wt 58.0 kg
[~2024-09-20 05:25] MED LIST changes: +INSULANT SC
[2024-09-20 06:11] LABS: BASO # 0.1 10^3/uL (0.0-0.2); EOS # 0.1 10^3/uL (0.0-0.5); EOS % 0.9 % (0.0-3.0); HEMATOCRIT 38.5 % (36.0-47.0); HEMOGLOBIN 12.4 g/dl (12.0-15.5); LYMPH # 1.9 10^3/uL (1.5-5.0); LYMPH % 13.6 % (24.0-44.0); MEAN CORPUSCULAR HEMOGLOBIN 25.7 pg (27.0-33.0); MEAN CORPUSCULAR HGB CONC 32.2 g/dl (32.0-36.5); MEAN CORPUSCULAR VOLUME 79.9 fl (80.0-96.0); MONO # 0.5 10^3/uL (0.0-0.8); MONO % 3.7 % (2.0-8.0); NEUTROPHILS # 11.2 10^3/uL (1.5-8.5); NEUTROPHILS % 80.4 % (36.0-66.0); PLATELET COUNT, AUTOMATED 411 10^3/uL (150-450); RED BLOOD COUNT 4.82 10^6/uL (4.00-5.40); WHITE BLOOD COUNT 13.9 10^3/uL (4.0-10.0)
[2024-09-20] MEDS: HALOPERIDOL LACTATE 5MG/ML VIAL IV ONE (06:12)
[2024-09-20] MEDS: NS (Normal Saline) 0.9% 1,000 ML IV ONE ×2 (06:13→07:47)
[2024-09-20 06:31] LABS: LIPASE 53 U/L (12-53)
[2024-09-20] MEDS: KETOROLAC 30 MG/ML 1ML VIAL IV ONE (06:41)
[2024-09-20] MEDS: METOCLOPRAMIDE INJ 10MG/2ML VIAL IV ONE (06:42)
[2024-09-20 06:51] LABS: OSMOLALITY SERUM 324 MOSM/KG (275-295)
[2024-09-20 07:15] LABS: ACETONE/KETONE > 4.50 MMOL/L (0.02-0.27); ALBUMIN 4.3 G/DL (3.2-5.2); ALKALINE PHOSPHATASE 118 U/L (35-104); ALT/SGPT 46 U/L (7.0-40); AST/SGOT 28 U/L (<34); BILIRUBIN,DIRECT 0.2 MG/DL (<0.4); BILIRUBIN,TOTAL 0.8 MG/DL (0.3-1.2); BLOOD UREA NITROGEN 25 MG/DL (9-23); CALCIUM LEVEL 9.4 MG/DL (8.5-10.1); CARBON DIOXIDE LEVEL 15 MMOL/L (20-31); CHLORIDE LEVEL 95 MMOL/L (98-107); CREATININE FOR GFR 0.68 MG/DL (0.55-1.30); GLOMERULAR FILTRATION RATE > 60.0 (>58); GLUCOSE, FASTING 682 MG/DL (60-100); POTASSIUM SERUM 5.1 MMOL/L (3.5-5.1); SODIUM LEVEL 131 MMOL/L (136-145); TOTAL PROTEIN 7.6 G/DL (5.7-8.2)
[2024-09-20 07:20] LABS: HEMOGLOBIN A1c 10.6 % (4.0-6.0)
[2024-09-20] MEDS: HumuLIN R (REGULAR) INSULIN (NovoLIN R) **100U/ML** PER UNIT IV ONE (07:47)
[2024-09-20 08:07] LABS: VENOUS BASE EXCESS -12.9 (-2.0-2.0); VENOUS HCO3 12.3 MMOL/L (23.0-27.0); VENOUS O2 SATURATION 98.9 % (60.0-80.0); VENOUS PARTIAL PRESSURE CO2 26.8 mmHg (38.0-50.0); VENOUS PARTIAL PRESSURE O2 172.2 mmHg (30.0-50.0); VENOUS PH 7.278 UNITS (7.330-7.430); VENOUS STANDARD HCO3 14.6 MMOL/L; VENOUS TOTAL CO2 13.1 MMOL/L (24.0-28.0)
[2024-09-20 08:34] LABS: MAGNESIUM LEVEL 1.9 MG/DL (1.8-2.4); PHOSPHORUS LEVEL 4.5 MG/DL (2.5-4.9)
[2024-09-20] MEDS: METOCLOPRAMIDE INJ 10MG/2ML VIAL IV SCH (09:03)
[2024-09-20] MEDS: PANTOPRAZOLE 40MG VIAL IV SCH (09:25)
[2024-09-20] MEDS: SCOPOLAMINE 1MG TRANSDERMAL PATCH TOP ONE (09:25)
[2024-09-20] MEDS: INSULIN REGULAR IN 0.9 % NACL 100 UNIT in IV 1 EA IV SCH (09:29)
[2024-09-20] MEDS: MORPHINE 2 MG/ML 1ML VIAL IV PRN (10:23)
[2024-09-20] MEDS: D5W/0.45% SODIUM CHLORIDE 1,000 ML IV SCH (11:20)
[2024-09-20] MEDS: INSULIN IV RATE CHANGE DOCUMENTATION ML/HR XX SCH (11:23)
[2024-09-20 11:30] VITALS: BP 104/61; TEMP 99.5; O2SAT 96
[2024-09-20] MEDS ORDERED: HOME MED LIST COMPLETE! XX SCH (11:50)
[2024-09-20 12:00] VITALS: BP 97/55; O2SAT 95
[2024-09-20 12:20] LABS: BLOOD UREA NITROGEN 22 MG/DL (9-23); CALCIUM LEVEL 8.6 MG/DL (8.5-10.1); CARBON DIOXIDE LEVEL 19 MMOL/L (20-31); CHLORIDE LEVEL 106 MMOL/L (98-107); CREATININE FOR GFR 0.62 MG/DL (0.55-1.30); GLOMERULAR FILTRATION RATE > 60.0 (>58); GLUCOSE, FASTING 237 MG/DL (60-100); MAGNESIUM LEVEL 1.7 MG/DL (1.8-2.4); PHOSPHORUS LEVEL 2.1 MG/DL (2.5-4.9); POTASSIUM SERUM 4.4 MMOL/L (3.5-5.1); SODIUM LEVEL 140 MMOL/L (136-145)
[2024-09-20 13:00] VITALS: BP 101/61; O2SAT 96
[2024-09-20] MEDS ORDERED: GLUCAGON INJ 1MG VIAL SC PRN (13:25)
[2024-09-20] MEDS ORDERED: GLUCOSE 4 GM CHEW PO PRN (13:25)
[2024-09-20] MEDS ORDERED: DEXTROSE 50% 50ML SYRINGE IV PRN (13:25)
[2024-09-20] MEDS: LanTUS (INSULIN GLARGINE INJ) 1 UNITS/0.01 ML SC ONE ×2 (13:51→17:37)
[2024-09-20 14:00] VITALS: BP 150/90; O2SAT 99
[2024-09-20 14:55] LABS: BLOOD UREA NITROGEN 21 MG/DL (9-23); CALCIUM LEVEL 8.9 MG/DL (8.5-10.1); CARBON DIOXIDE LEVEL 24 MMOL/L (20-31); CHLORIDE LEVEL 103 MMOL/L (98-107); GLOMERULAR FILTRATION RATE > 60.0 (>58); GLUCOSE, FASTING 122 MG/DL (60-100); MAGNESIUM LEVEL 1.9 MG/DL (1.8-2.4); PHOSPHORUS LEVEL 2.7 MG/DL (2.5-4.9); POTASSIUM SERUM 4.7 MMOL/L (3.5-5.1); SODIUM LEVEL 138 MMOL/L (136-145)
[2024-09-20 15:00] VITALS: BP 121/68; O2SAT 98
[2024-09-20 16:00] VITALS: BP 120/70; TEMP 99; O2SAT 96
[2024-09-20] MEDS ORDERED: ALPRAZolam 0.5 MG TAB PO PRN (16:15)
[2024-09-20] MEDS ORDERED: SUMAtriptan SUCCINATE 25MG TABLET PO PRN (16:15)
[2024-09-20] MEDS ORDERED: ALBUTEROL 90 MCG/ACT 8GM HFA INHALER INH PRN (16:15)
[2024-09-20] MEDS: ATORVASTATIN 20 MG TAB PO SCH (16:23)
[2024-09-20] MEDS: PARoxetine 20MG TABLET PO SCH (16:24)
[2024-09-20] MEDS: NORCO, ANEXSIA 5/325MG TABLET (HYDROcodone/ACETAMINOPHEN) PO PRN (16:34)
[2024-09-20 17:33] LABS: BLOOD UREA NITROGEN 19 MG/DL (9-23); CALCIUM LEVEL 8.4 MG/DL (8.5-10.1); CARBON DIOXIDE LEVEL 23 MMOL/L (20-31); CHLORIDE LEVEL 99 MMOL/L (98-107); CREATININE FOR GFR 0.63 MG/DL (0.55-1.30); GLOMERULAR FILTRATION RATE > 60.0 (>58); GLUCOSE, FASTING 331 MG/DL (60-100); POTASSIUM SERUM 4.3 MMOL/L (3.5-5.1); SODIUM LEVEL 132 MMOL/L (136-145)
[2024-09-20] MEDS: INSULIN LISPRO (NovoLOG) PER UNIT SC SCH (17:36)
[2024-09-20] MEDS ORDERED: busPIRone 10 MG TAB PO SCH (21:00)
[2024-09-20] MEDS ORDERED: INSULIN LISPRO (NovoLOG) PER UNIT SC SCH (21:00)
[2024-09-21] MEDS ORDERED: ENOXAPARIN 40MG/0.4ML SYRINGE (J1650 PER 10MG) SC SCH (09:00)
[2024-09-21] MEDS ORDERED: LanTUS (INSULIN GLARGINE INJ) 1 UNITS/0.01 ML SC SCH (09:00)
== END 2024-09-20 18:16 | disposition home or self-care (01) | DRG 420 ==
LOC: M ED 05:25 → EDBD 05:25 → M ED INP 08:35 → M ICU 11:12
PROVIDERS: ADMIT Internal Medicine Pulmonary Disease; ATTEND Internal Medicine Pulmonary Disease
DX: E11.10 Type 2 diabetes mellitus with ketoacidosis without coma (principal); K31.84 Gastroparesis; I10 Essential (primary) hypertension; E78.5 Hyperlipidemia, unspecified; G40.909 Epilepsy, unspecified, not intractable, without status epilepticus; E11.43 Type 2 diabetes mellitus with diabetic autonomic (poly)neuropathy; F41.9 Anxiety disorder, unspecified; G43.909 Migraine, unspecified, not intractable, without status migrainosus; M54.59 Other low back pain; Z88.8 Allergy status to other drugs, medicaments and biological substances; Z79.899 Other long term (current) drug therapy; E28.2 Polycystic ovarian syndrome; R11.2 Nausea with vomiting, unspecified; F12.188 Cannabis abuse with other cannabis-induced disorder

== ENCOUNTER 2024-10-23 05:32 | Inpatient (IN) | payer MEDICAID, OTHER ==
[~2024-10-23] VITALS: Ht 154.9 cm; Wt 61.6 kg
[2024-10-23 06:14] LABS: BASO # 0.1 10^3/uL (0.0-0.2); BASO % 0.9 % (0.0-1.0); EOS # 0.2 10^3/uL (0.0-0.5); EOS % 1.1 % (0.0-3.0); HEMATOCRIT 38.4 % (36.0-47.0); HEMOGLOBIN 12.6 g/dl (12.0-15.5); LYMPH # 3.5 10^3/uL (1.5-5.0); LYMPH % 23.1 % (24.0-44.0); MEAN CORPUSCULAR HEMOGLOBIN 25.7 pg (27.0-33.0); MEAN CORPUSCULAR HGB CONC 32.8 g/dl (32.0-36.5); MEAN CORPUSCULAR VOLUME 78.2 fl (80.0-96.0); MONO # 0.7 10^3/uL (0.0-0.8); MONO % 4.9 % (2.0-8.0); NEUTROPHILS # 10.4 10^3/uL (1.5-8.5); NEUTROPHILS % 69.7 % (36.0-66.0); PLATELET COUNT, AUTOMATED 421 10^3/uL (150-450); RED BLOOD COUNT 4.91 10^6/uL (4.00-5.40)
[2024-10-23 06:35] LABS: LIPASE 44 U/L (12-53)
[2024-10-23 06:40] LABS: ALBUMIN 4.1 G/DL (3.2-5.2); ALKALINE PHOSPHATASE 118 U/L (35-104); ALT/SGPT 39 U/L (7.0-40); AST/SGOT 21 U/L (<34); BILIRUBIN,DIRECT < 0.1 MG/DL (<0.4); BILIRUBIN,TOTAL 0.4 MG/DL (0.3-1.2); BLOOD UREA NITROGEN 18 MG/DL (9-23); CARBON DIOXIDE LEVEL 22 MMOL/L (20-31); CHLORIDE LEVEL 100 MMOL/L (98-107); CREATININE FOR GFR 0.59 MG/DL (0.55-1.30); GLOMERULAR FILTRATION RATE > 90.0 (>58); GLUCOSE, FASTING 171 MG/DL (60-100); POTASSIUM SERUM 4.2 MMOL/L (3.5-5.1); SODIUM LEVEL 139 MMOL/L (136-145); TOTAL PROTEIN 7.5 G/DL (5.7-8.2)
[2024-10-23 07:45] LABS: VENOUS BASE EXCESS -2.7 (-2.0-2.0); VENOUS HCO3 18.7 MMOL/L (23.0-27.0); VENOUS O2 SATURATION 98.7 % (60.0-80.0); VENOUS PARTIAL PRESSURE CO2 24.3 mmHg (38.0-50.0); VENOUS PARTIAL PRESSURE O2 123.8 mmHg (30.0-50.0); VENOUS PH 7.505 UNITS (7.330-7.430); VENOUS STANDARD HCO3 22.3 MMOL/L; VENOUS TOTAL CO2 19.5 MMOL/L (24.0-28.0)
[2024-10-23 07:53] LABS: ACETONE/KETONE 0.24 MMOL/L (0.02-0.27)
[2024-10-23] MEDS: diphenhydrAMINE 50MG/ML VIAL IV ONE (07:58)
[2024-10-23] MEDS: HALOPERIDOL LACTATE 5MG/ML VIAL IV ONE ×2 (07:58→09:22)
[2024-10-23 09:20] LABS: KETONE, URINE AUTO RFX 2+ mg/dL (NEGATIVE); LEUKOCYTE ESTERASE UR AUTO RFX NEGATIVE (NEGATIVE); NITRITE, URINE AUTO RFX NEGATIVE (NEGATIVE); RBC, URINE AUTO RFX 1 /HPF (0-3); SQUAM EPITHELIAL CELL UR AURFX 2 /HPF (0-6); WBC, URINE AUTO RFX 2 /HPF (0-3)
[2024-10-23 09:45] LABS: AMPHETAMINES LEVEL URINE NEGATIVE (NEGATIVE); BARBITURATES URINE NEGATIVE (NEGATIVE); BENZODIAZEPINES URINE NEGATIVE (NEGATIVE); COCAINE METABOLITE URINE NEGATIVE (NEGATIVE); METHADONE URINE NEGATIVE (NEGATIVE); OPIATES URINE NEGATIVE (NEGATIVE); PHENCYCLIDINE URINE NEGATIVE (NEGATIVE)
[2024-10-23 09:47] LABS: CANNABINOIDS URINE POSITIVE (NEGATIVE)
[2024-10-23 11:20] VITALS: BP 180/82
[2024-10-23] MEDS: METOPROLOL TART 50 MG TAB PO ONE (11:20)
[2024-10-23] MEDS: NORCO, ANEXSIA 5/325MG TABLET (HYDROcodone/ACETAMINOPHEN) PO ONE (11:21)
[2024-10-23 11:32] LABS: BLOOD UREA NITROGEN 19 MG/DL (9-23); CALCIUM LEVEL 9.5 MG/DL (8.5-10.1); CARBON DIOXIDE LEVEL 15 MMOL/L (20-31); CHLORIDE LEVEL 94 MMOL/L (98-107); CREATININE FOR GFR 0.61 MG/DL (0.55-1.30); GLOMERULAR FILTRATION RATE > 90.0 (>58); GLUCOSE, FASTING 591 MG/DL (60-100); POTASSIUM SERUM 4.3 MMOL/L (3.5-5.1); SODIUM LEVEL 135 MMOL/L (136-145)
[2024-10-23] MEDS: HumuLIN R (REGULAR) INSULIN (NovoLIN R) **100U/ML** PER UNIT IV ONE (12:01)
[2024-10-23] MEDS: NS (Normal Saline) 0.9% 1,000 ML IV ONE ×3 (12:01→15:20)
[2024-10-23 12:12] LABS: VENOUS BASE EXCESS -14.3 (-2.0-2.0); VENOUS HCO3 12.8 MMOL/L (23.0-27.0); VENOUS O2 SATURATION 74.9 % (60.0-80.0); VENOUS PARTIAL PRESSURE CO2 34.2 mmHg (38.0-50.0); VENOUS PARTIAL PRESSURE O2 47.4 mmHg (30.0-50.0); VENOUS PH 7.191 UNITS (7.330-7.430); VENOUS STANDARD HCO3 13.2 MMOL/L; VENOUS TOTAL CO2 13.8 MMOL/L (24.0-28.0)
[2024-10-23] MEDS ORDERED: INSULIN IV RATE CHANGE DOCUMENTATION ML/HR XX SCH ×2 (12:30→13:30)
[2024-10-23] MEDS ORDERED: PANT20TA6 PO (12:54)
[2024-10-23] MEDS ORDERED: HOME MED LIST COMPLETE! XX SCH (12:55)
[2024-10-23] MEDS: INSULIN REGULAR IN 0.9 % NACL 100 UNIT in IV 1 EA IV SCH (13:10)
[2024-10-23] MEDS ORDERED: NS (Normal Saline) 0.9% 1,000 ML IV ONE (13:25)
[2024-10-23] MEDS ORDERED: INSULIN REGULAR IN 0.9 % NACL 100 UNIT in IV 1 EA IV SCH (13:30)
[2024-10-23] MEDS: ENOXAPARIN 40MG/0.4ML SYRINGE (J1650 PER 10MG) SC SCH (14:19)
[2024-10-23] MEDS: PANTOPRAZOLE 40MG VIAL IV SCH (14:19)
[2024-10-23 14:32] VITALS: BP 104/59; TEMP 98.8; O2SAT 100
[2024-10-23] MEDS: D5W/0.45% SODIUM CHLORIDE 1,000 ML IV SCH (15:20)
[2024-10-23 15:34] LABS: VENOUS BASE EXCESS -1.9 (-2.0-2.0); VENOUS O2 SATURATION 99.6 % (60.0-80.0); VENOUS PARTIAL PRESSURE CO2 30.1 mmHg (38.0-50.0); VENOUS PARTIAL PRESSURE O2 241.6 mmHg (30.0-50.0); VENOUS PH 7.462 UNITS (7.330-7.430); VENOUS STANDARD HCO3 22.9 MMOL/L; VENOUS TOTAL CO2 21.9 MMOL/L (24.0-28.0)
[2024-10-23 16:00] VITALS: BP 97/52; O2SAT 96
[2024-10-23] MEDS ORDERED: NS (Normal Saline) 0.9% 1,000 ML IV SCH (16:00)
[2024-10-23 16:10] LABS: BLOOD UREA NITROGEN 17 MG/DL (9-23); CALCIUM LEVEL 7.9 MG/DL (8.5-10.1); CARBON DIOXIDE LEVEL 23 MMOL/L (20-31); CHLORIDE LEVEL 104 MMOL/L (98-107); CREATININE FOR GFR 0.57 MG/DL (0.55-1.30); GLOMERULAR FILTRATION RATE > 90.0 (>58); GLUCOSE, FASTING 147 MG/DL (60-100); MAGNESIUM LEVEL 1.5 MG/DL (1.8-2.4); PHOSPHORUS LEVEL 2.6 MG/DL (2.5-4.9); POTASSIUM SERUM 3.8 MMOL/L (3.5-5.1); SODIUM LEVEL 138 MMOL/L (136-145)
[2024-10-23] MEDS: MAG SULF 1GM/100ML (MAG RUN) 1 GM in IV 1 EA IV ONE (16:56)
[2024-10-23] MEDS: LanTUS (INSULIN GLARGINE INJ) 1 UNITS/0.01 ML SC ONE (16:57)
[2024-10-23] MEDS ORDERED: DEXTROSE 50% 50ML SYRINGE IV PRN (18:20)
[2024-10-23] MEDS ORDERED: GLUCOSE 4 GM CHEW PO PRN (18:20)
[2024-10-23] MEDS ORDERED: GLUCAGON INJ 1MG VIAL SC PRN (18:20)
[2024-10-23 20:00] VITALS: BP 118/61; TEMP 98.6; O2SAT 99
[2024-10-23] MEDS: INSULIN LISPRO (NovoLOG) PER UNIT SC SCH (20:04)
[2024-10-23] MEDS: NORCO, ANEXSIA 5/325MG TABLET (HYDROcodone/ACETAMINOPHEN) PO PRN (20:04)
[2024-10-23 20:05] LABS: VENOUS BASE EXCESS -4.6 (-2.0-2.0); VENOUS HCO3 19.5 MMOL/L (23.0-27.0); VENOUS O2 SATURATION 99.5 % (60.0-80.0); VENOUS PARTIAL PRESSURE CO2 32.6 mmHg (38.0-50.0); VENOUS PH 7.394 UNITS (7.330-7.430); VENOUS STANDARD HCO3 20.7 MMOL/L; VENOUS TOTAL CO2 20.5 MMOL/L (24.0-28.0)
[2024-10-23 20:40] LABS: BLOOD UREA NITROGEN 13 MG/DL (9-23); CALCIUM LEVEL 8.1 MG/DL (8.5-10.1); CARBON DIOXIDE LEVEL 21 MMOL/L (20-31); CHLORIDE LEVEL 104 MMOL/L (98-107); CREATININE FOR GFR 0.59 MG/DL (0.55-1.30); GLOMERULAR FILTRATION RATE > 90.0 (>58); GLUCOSE, FASTING 124 MG/DL (60-100); POTASSIUM SERUM 4.2 MMOL/L (3.5-5.1); SODIUM LEVEL 138 MMOL/L (136-145)
[2024-10-23] MEDS ORDERED: LanTUS (INSULIN GLARGINE INJ) 1 UNITS/0.01 ML SC SCH (21:00)
[2024-10-24] VITALS: BP 117/64; TEMP 98.6; O2SAT 97
[2024-10-24 04:00] VITALS: BP 138/77; TEMP 98.4; O2SAT 99
[2024-10-24 05:35] LABS: BASO # 0.1 10^3/uL (0.0-0.2); BASO % 0.6 % (0.0-1.0); EOS # 0.1 10^3/uL (0.0-0.5); EOS % 0.7 % (0.0-3.0); HEMATOCRIT 33.2 % (36.0-47.0); HEMOGLOBIN 10.7 g/dl (12.0-15.5); LYMPH # 2.7 10^3/uL (1.5-5.0); LYMPH % 21.9 % (24.0-44.0); MEAN CORPUSCULAR HEMOGLOBIN 25.8 pg (27.0-33.0); MEAN CORPUSCULAR HGB CONC 32.2 g/dl (32.0-36.5); MEAN CORPUSCULAR VOLUME 80.2 fl (80.0-96.0); MONO # 0.8 10^3/uL (0.0-0.8); MONO % 6.5 % (2.0-8.0); NEUTROPHILS # 8.8 10^3/uL (1.5-8.5); NEUTROPHILS % 69.9 % (36.0-66.0); PLATELET COUNT, AUTOMATED 376 10^3/uL (150-450); RED BLOOD COUNT 4.14 10^6/uL (4.00-5.40); WHITE BLOOD COUNT 12.5 10^3/uL (4.0-10.0)
[2024-10-24 06:04] LABS: PROCALCITONIN 0.66 ng/ml
[2024-10-24 06:07] LABS: ALBUMIN 3.3 G/DL (3.2-5.2); ALKALINE PHOSPHATASE 97 U/L (35-104); ALT/SGPT 27 U/L (7.0-40); AST/SGOT 11 U/L (<34); BILIRUBIN,TOTAL 0.6 MG/DL (0.3-1.2); BLOOD UREA NITROGEN 9 MG/DL (9-23); CALCIUM LEVEL 8.2 MG/DL (8.5-10.1); CARBON DIOXIDE LEVEL 22 MMOL/L (20-31); CHLORIDE LEVEL 100 MMOL/L (98-107); CREATININE FOR GFR 0.54 MG/DL (0.55-1.30); GLOMERULAR FILTRATION RATE > 90.0 (>58); GLUCOSE, FASTING 308 MG/DL (60-100); MAGNESIUM LEVEL 1.8 MG/DL (1.8-2.4); POTASSIUM SERUM 4.5 MMOL/L (3.5-5.1); SODIUM LEVEL 132 MMOL/L (136-145); TOTAL PROTEIN 6.1 G/DL (5.7-8.2)
[2024-10-24] MEDS: ALPRAZolam 0.5 MG TAB PO PRN (06:09)
[2024-10-24 08:00] VITALS: BP 115/75; TEMP 98.3; O2SAT 98
[2024-10-24] MEDS: INSULIN LISPRO (NovoLOG) PER UNIT SC SCH (08:03)
[2024-10-24] MEDS ORDERED: METOCLOPRAMIDE 10MG TAB PO PRN (09:15)
[2024-10-24] MEDS ORDERED: SCOPOLAMINE 1MG TRANSDERMAL PATCH TOP PRN (09:15)
[2024-10-24] MEDS ORDERED: SUMAtriptan SUCCINATE 25MG TABLET PO PRN (09:15)
[2024-10-24] MEDS ORDERED: ALBUTEROL 90 MCG/ACT 8GM HFA INHALER INH PRN (09:15)
[2024-10-24] MEDS: busPIRone 10 MG TAB PO SCH (10:26)
[2024-10-24] MEDS: PANTOPRAZOLE 20 MG TAB PO SCH (10:26)
[2024-10-24] MEDS: PARoxetine 20MG TABLET PO SCH (10:26)
[2024-10-24] MEDS: ATORVASTATIN 20 MG TAB PO SCH (10:26)
[2024-10-24 11:45] LABS: BLOOD UREA NITROGEN 8 MG/DL (9-23); CALCIUM LEVEL 8.7 MG/DL (8.5-10.1); CARBON DIOXIDE LEVEL 28 MMOL/L (20-31); CHLORIDE LEVEL 101 MMOL/L (98-107); CREATININE FOR GFR 0.66 MG/DL (0.55-1.30); GLOMERULAR FILTRATION RATE > 90.0 (>58); GLUCOSE, FASTING 143 MG/DL (60-100); POTASSIUM SERUM 3.9 MMOL/L (3.5-5.1); SODIUM LEVEL 137 MMOL/L (136-145)
[2024-10-24] MEDS ORDERED: LanTUS (INSULIN GLARGINE INJ) 1 UNITS/0.01 ML SC SCH (21:00)
== END 2024-10-24 14:26 | disposition home or self-care (01) | DRG 420 ==
LOC: EDBD 05:32 → M ED 05:32 → M ED INP 13:19 → M ICU 14:40
PROVIDERS: ADMIT Internal Medicine Critical Care Medicine; ATTEND General Practice
DX: E11.10 Type 2 diabetes mellitus with ketoacidosis without coma (principal); E83.42 Hypomagnesemia; I10 Essential (primary) hypertension; E78.5 Hyperlipidemia, unspecified; F12.188 Cannabis abuse with other cannabis-induced disorder; G40.909 Epilepsy, unspecified, not intractable, without status epilepticus; D72.829 Elevated white blood cell count, unspecified; D64.9 Anemia, unspecified; G43.909 Migraine, unspecified, not intractable, without status migrainosus; F41.9 Anxiety disorder, unspecified; M54.59 Other low back pain; E28.2 Polycystic ovarian syndrome; R11.2 Nausea with vomiting, unspecified; Z79.899 Other long term (current) drug therapy; Z79.4 Long term (current) use of insulin; Z88.8 Allergy status to other drugs, medicaments and biological substances; E11.43 Type 2 diabetes mellitus with diabetic autonomic (poly)neuropathy

== ENCOUNTER 2024-10-25 07:58 | Inpatient (IN) | payer OTHER ==
[~2024-10-25] VITALS: Ht 154.9 cm; Wt 63.3 kg
[~2024-10-25 07:58] MED LIST changes: +PANT20TA6 PO
[2024-10-25 08:36] LABS: VENOUS BASE EXCESS -3.9 (-2.0-2.0); VENOUS HCO3 18.4 MMOL/L (23.0-27.0); VENOUS PARTIAL PRESSURE CO2 26.2 mmHg (38.0-50.0); VENOUS PARTIAL PRESSURE O2 95.8 mmHg (30.0-50.0); VENOUS PH 7.465 UNITS (7.330-7.430); VENOUS STANDARD HCO3 21.3 MMOL/L; VENOUS TOTAL CO2 19.2 MMOL/L (24.0-28.0)
[2024-10-25] MEDS: NS (Normal Saline) 0.9% 1,000 ML IV ONE ×3 (08:36→13:55)
[2024-10-25] MEDS: diphenhydrAMINE 50MG/ML VIAL IV ONE (08:37)
[2024-10-25] MEDS: HALOPERIDOL LACTATE 5MG/ML VIAL IV ONE ×2 (08:37→09:59)
[2024-10-25 08:40] LABS: BASO # 0.1 10^3/uL (0.0-0.2); BASO % 0.5 % (0.0-1.0); EOS # 0.1 10^3/uL (0.0-0.5); EOS % 0.4 % (0.0-3.0); HEMATOCRIT 35.8 % (36.0-47.0); HEMOGLOBIN 11.6 g/dl (12.0-15.5); LYMPH # 3.4 10^3/uL (1.5-5.0); LYMPH % 18.5 % (24.0-44.0); MEAN CORPUSCULAR HEMOGLOBIN 25.6 pg (27.0-33.0); MEAN CORPUSCULAR HGB CONC 32.4 g/dl (32.0-36.5); MEAN CORPUSCULAR VOLUME 78.9 fl (80.0-96.0); MONO # 1.1 10^3/uL (0.0-0.8); MONO % 5.8 % (2.0-8.0); NEUTROPHILS # 13.7 10^3/uL (1.5-8.5); NEUTROPHILS % 74.3 % (36.0-66.0); PLATELET COUNT, AUTOMATED 459 10^3/uL (150-450); RED BLOOD COUNT 4.54 10^6/uL (4.00-5.40); WHITE BLOOD COUNT 18.5 10^3/uL (4.0-10.0)
[2024-10-25 09:11] LABS: BLOOD UREA NITROGEN 10 MG/DL (9-23); CALCIUM LEVEL 9.1 MG/DL (8.5-10.1); CARBON DIOXIDE LEVEL 20 MMOL/L (20-31); CHLORIDE LEVEL 104 MMOL/L (98-107); GLOMERULAR FILTRATION RATE > 90.0 (>58); GLUCOSE, FASTING 232 MG/DL (60-100); SODIUM LEVEL 138 MMOL/L (136-145)
[2024-10-25] MEDS: MAG SULF 1GM/100ML (MAG RUN) 1 GM in IV 1 EA IV ONE (09:57)
[2024-10-25] MEDS: PERCOCET 5MG/325MG TAB PO ONE (10:58)
[2024-10-25] MEDS ORDERED: HOME MED LIST COMPLETE! XX SCH (11:10)
[2024-10-25 12:33] LABS: VENOUS BASE EXCESS -8.6 (-2.0-2.0); VENOUS HCO3 15.7 MMOL/L (23.0-27.0); VENOUS O2 SATURATION 94.8 % (60.0-80.0); VENOUS PARTIAL PRESSURE CO2 29.4 mmHg (38.0-50.0); VENOUS PARTIAL PRESSURE O2 75.5 mmHg (30.0-50.0); VENOUS PH 7.346 UNITS (7.330-7.430); VENOUS STANDARD HCO3 17.5 MMOL/L; VENOUS TOTAL CO2 16.6 MMOL/L (24.0-28.0)
[2024-10-25] MEDS: PANTOPRAZOLE 40MG VIAL IV ONE (12:37)
[2024-10-25 13:12] LABS: ACETONE/KETONE > 4.50 MMOL/L (0.02-0.27); BLOOD UREA NITROGEN 9 MG/DL (9-23); CARBON DIOXIDE LEVEL 19 MMOL/L (20-31); CHLORIDE LEVEL 100 MMOL/L (98-107); CREATININE FOR GFR 0.42 MG/DL (0.55-1.30); GLOMERULAR FILTRATION RATE > 90.0 (>58); GLUCOSE, FASTING 355 MG/DL (60-100); POTASSIUM SERUM 3.9 MMOL/L (3.5-5.1); SODIUM LEVEL 135 MMOL/L (136-145)
[2024-10-25] MEDS: ALPRAZolam 0.5 MG TAB PO ONE (13:55)
[2024-10-25] MEDS: busPIRone 10 MG TAB PO ONE (13:55)
[2024-10-25] MEDS: PARoxetine 20MG TABLET PO ONE (13:56)
[2024-10-25] MEDS: HumuLIN R (REGULAR) INSULIN (NovoLIN R) **100U/ML** PER UNIT IV ONE (14:05)
[2024-10-25 15:43] LABS: VENOUS BASE EXCESS -6.5 (-2.0-2.0); VENOUS HCO3 17.5 MMOL/L (23.0-27.0); VENOUS O2 SATURATION 94.7 % (60.0-80.0); VENOUS PARTIAL PRESSURE CO2 30.4 mmHg (38.0-50.0); VENOUS PH 7.378 UNITS (7.330-7.430); VENOUS STANDARD HCO3 19.1 MMOL/L; VENOUS TOTAL CO2 18.4 MMOL/L (24.0-28.0)
[2024-10-25 16:19] LABS: ACETONE/KETONE 2.25 MMOL/L (0.02-0.27); BLOOD UREA NITROGEN 9 MG/DL (9-23); CALCIUM LEVEL 7.6 MG/DL (8.5-10.1); CARBON DIOXIDE LEVEL 20 MMOL/L (20-31); CHLORIDE LEVEL 104 MMOL/L (98-107); CREATININE FOR GFR 0.41 MG/DL (0.55-1.30); GLOMERULAR FILTRATION RATE > 90.0 (>58); GLUCOSE, FASTING 220 MG/DL (60-100); POTASSIUM SERUM 4.1 MMOL/L (3.5-5.1); SODIUM LEVEL 138 MMOL/L (136-145)
[2024-10-25] MEDS ORDERED: NS (Normal Saline) 0.9% 1,000 ML IV ONE (17:05)
[2024-10-25] MEDS ORDERED: NORCO, ANEXSIA 5/325MG TABLET (HYDROcodone/ACETAMINOPHEN) PO PRN (17:10)
[2024-10-25] MEDS ORDERED: SCOPOLAMINE 1MG TRANSDERMAL PATCH TOP PRN (17:10)
[2024-10-25] MEDS ORDERED: ALPRAZolam 0.5 MG TAB PO PRN (17:10)
[2024-10-25] MEDS ORDERED: SUMAtriptan SUCCINATE 25MG TABLET PO PRN (17:10)
[2024-10-25] MEDS ORDERED: GLUCOSE 4 GM CHEW PO PRN (17:15)
[2024-10-25] MEDS ORDERED: GLUCAGON INJ 1MG VIAL SC PRN (17:15)
[2024-10-25] MEDS: LR 1,000 ML IV ONE ×2 (17:18→18:29)
[2024-10-25] MEDS ORDERED: METOCLOPRAMIDE INJ 10MG/2ML VIAL IV SCH ×2 (17:30→21:00)
[2024-10-25] MEDS ORDERED: INSULIN LISPRO (NovoLOG) PER UNIT SC SCH ×2 (17:30→21:00)
[2024-10-25] MEDS: METOCLOPRAMIDE 10MG TAB PO SCH (17:37)
[2024-10-25] MEDS: LanTUS (INSULIN GLARGINE INJ) 1 UNITS/0.01 ML SC ONE (17:43)
[2024-10-25] MEDS: INSULIN LISPRO (NovoLOG) PER UNIT SC SCH ×2 (17:44→21:00)
[2024-10-25 17:55] LABS: PROCALCITONIN 0.32 ng/ml
[2024-10-25] MEDS: HYDROMORPHONE HCL 0.5 MG/ 0.5 ML SYRINGE IV ONE (18:28)
[2024-10-25] MEDS: INSULIN LISPRO (NovoLOG) PER UNIT SC STA (18:29)
[2024-10-25 18:54] LABS: BLOOD UREA NITROGEN 9 MG/DL (9-23); CALCIUM LEVEL 8.3 MG/DL (8.5-10.1); CARBON DIOXIDE LEVEL 14 MMOL/L (20-31); CHLORIDE LEVEL 101 MMOL/L (98-107); CREATININE FOR GFR 0.51 MG/DL (0.55-1.30); GLOMERULAR FILTRATION RATE > 90.0 (>58); GLUCOSE, FASTING 395 MG/DL (60-100); POTASSIUM SERUM 3.9 MMOL/L (3.5-5.1); SODIUM LEVEL 137 MMOL/L (136-145)
[2024-10-25] MEDS ORDERED: INSULIN REGULAR IN 0.9 % NACL 100 UNIT in IV 1 EA IV SCH (19:05)
[2024-10-25] MEDS ORDERED: INSULIN IV RATE CHANGE DOCUMENTATION ML/HR XX SCH (19:05)
[2024-10-25] MEDS ORDERED: KCL 10MEQ IN D5/0.45NS 1000ML 1,000 ML IV SCH (19:30)
[2024-10-25 19:36] LABS: CK-MB VALUE MASS < 1.0 NG/ML (<3.6)
[2024-10-25] MEDS: KETOROLAC 30 MG/ML 1ML VIAL IV SCH (19:36)
[2024-10-25 19:38] LABS: CPK CREATINE PHOSPHOKINASE 114 U/L (34-145); MB/CK RELATIVE INDEX 0.87 (< OR =4)
[2024-10-25] MEDS: METOPROLOL 5 MG/5 ML VIAL IV SCH (19:38)
[2024-10-25] MEDS: NITROGLYCERIN 2% OINT 1 GM *U/D* PKT TOP ONE (19:39)
[2024-10-25] MEDS ORDERED: cloNIDine HCL 0.1 MG/24 HR PATCH TOP SCH (20:00)
[2024-10-25] MEDS: SCOPOLAMINE 1MG TRANSDERMAL PATCH TOP SCH (20:00)
[2024-10-25] MEDS ORDERED: INSULIN LISPRO (NovoLOG) PER UNIT SC ONE (20:00)
[2024-10-25] MEDS: HumuLIN R (REGULAR) INSULIN (NovoLIN R) **100U/ML** PER UNIT IV SCH (20:09)
[2024-10-25 20:12] VITALS: BP 104/61
[2024-10-25] MEDS ORDERED: busPIRone 10 MG TAB PO SCH (21:00)
[2024-10-25 21:30] VITALS: BP 105/59; TEMP 98.8; O2SAT 98
[2024-10-25 21:45] VITALS: O2SAT 98
[2024-10-25 22:00] VITALS: O2SAT 98
[2024-10-25] MEDS ORDERED: D5W/0.45% SODIUM CHLORIDE 1,000 ML IV SCH (22:05)
[2024-10-25] MEDS: DEXTROSE 50% 50ML SYRINGE IV PRN (22:13)
[2024-10-25 22:19] VITALS: BP 104/60; O2SAT 98
[2024-10-25] MEDS: [UNRECOGNIZED DRUG - OTHER] IV STA (22:20)
[2024-10-25] MEDS: DEXTROSE IV STA (22:20)
[2024-10-25] MEDS: KCL 10MEQ/100ML SWI (KRUN) 10 MEQ in IV 1 EA IV SCH (22:20)
[2024-10-25] MEDS: HYDROMORPHONE HCL 0.5 MG/ 0.5 ML SYRINGE IV PRN (22:41)
[2024-10-25 23:00] VITALS: BP 135/72; O2SAT 98
[2024-10-25 23:07] LABS: C REACTIVE PROTEIN QUANTITATIV 2.09 MG/DL (<1.0)
[2024-10-25 23:08] LABS: BLOOD UREA NITROGEN 9 MG/DL (9-23); CALCIUM LEVEL 7.8 MG/DL (8.5-10.1); CARBON DIOXIDE LEVEL 24 MMOL/L (20-31); CHLORIDE LEVEL 101 MMOL/L (98-107); CREATININE FOR GFR 0.44 MG/DL (0.55-1.30); GLOMERULAR FILTRATION RATE > 90.0 (>58); GLUCOSE, FASTING 252 MG/DL (60-100); MAGNESIUM LEVEL 1.7 MG/DL (1.8-2.4); PHOSPHORUS LEVEL 2.2 MG/DL (2.5-4.9); POTASSIUM SERUM 3.7 MMOL/L (3.5-5.1); SODIUM LEVEL 135 MMOL/L (136-145)
[2024-10-25 23:24] LABS: ALBUMIN 3.1 G/DL (3.2-5.2); BILIRUBIN,DIRECT 0.2 MG/DL (<0.4); BILIRUBIN,TOTAL 0.6 MG/DL (0.3-1.2); TOTAL PROTEIN 5.7 G/DL (5.7-8.2)
[2024-10-25] MEDS: D5W/0.45% SODIUM CHLORIDE 1,000 ML IV SCH (23:57)
[2024-10-26] VITALS (7 sets, daily range): BP systolic 101–127; BP diastolic 55–83; TEMP 97.3–98.9; O2SAT 97–99
[2024-10-26] MEDS: METOPROLOL 5 MG/5 ML VIAL IV SCH
[2024-10-26] MEDS: METOCLOPRAMIDE INJ 10MG/2ML VIAL IV SCH (01:02)
[2024-10-26] MEDS: LanTUS (INSULIN GLARGINE INJ) 1 UNITS/0.01 ML SC ONE (01:38)
[2024-10-26] MEDS: INSULIN LISPRO (NovoLOG) PER UNIT SC ONE (01:43)
[2024-10-26 02:44] LABS: BLOOD UREA NITROGEN 8 MG/DL (9-23); CALCIUM LEVEL 7.8 MG/DL (8.5-10.1); CARBON DIOXIDE LEVEL 22 MMOL/L (20-31); CHLORIDE LEVEL 100 MMOL/L (98-107); CREATININE FOR GFR 0.53 MG/DL (0.55-1.30); GLOMERULAR FILTRATION RATE > 90.0 (>58); GLUCOSE, FASTING 362 MG/DL (60-100); MAGNESIUM LEVEL 1.6 MG/DL (1.8-2.4); PHOSPHORUS LEVEL 3.2 MG/DL (2.5-4.9); POTASSIUM SERUM 3.9 MMOL/L (3.5-5.1); SODIUM LEVEL 134 MMOL/L (136-145)
[2024-10-26] MEDS: MAG SULF 1GM/100ML (MAG RUN) 1 GM in IV 1 EA IV SCH (03:33)
[2024-10-26 07:09] LABS: BLOOD UREA NITROGEN 9 MG/DL (9-23); CALCIUM LEVEL 8.4 MG/DL (8.5-10.1); CARBON DIOXIDE LEVEL 23 MMOL/L (20-31); CHLORIDE LEVEL 100 MMOL/L (98-107); GLOMERULAR FILTRATION RATE > 90.0 (>58); GLUCOSE, FASTING 323 MG/DL (60-100); MAGNESIUM LEVEL 2.2 MG/DL (1.8-2.4); PHOSPHORUS LEVEL 2.3 MG/DL (2.5-4.9); POTASSIUM SERUM 3.9 MMOL/L (3.5-5.1); SODIUM LEVEL 134 MMOL/L (136-145)
[2024-10-26] MEDS: INSULIN LISPRO (NovoLOG) PER UNIT SC SCH ×2 (07:35→17:58)
[2024-10-26] MEDS ORDERED: PANTOPRAZOLE 20 MG TAB PO SCH (09:00)
[2024-10-26] MEDS ORDERED: LanTUS (INSULIN GLARGINE INJ) 1 UNITS/0.01 ML SC SCH (09:00)
[2024-10-26] MEDS ORDERED: ATORVASTATIN 20 MG TAB PO SCH (09:00)
[2024-10-26] MEDS ORDERED: PARoxetine 20MG TABLET PO SCH (09:00)
[2024-10-26 10:34] LABS: HEMATOCRIT 30.8 % (36.0-47.0); HEMOGLOBIN 9.9 g/dl (12.0-15.5); MEAN CORPUSCULAR HGB CONC 32.1 g/dl (32.0-36.5); MEAN CORPUSCULAR VOLUME 80.8 fl (80.0-96.0); PLATELET COUNT, AUTOMATED 348 10^3/uL (150-450); RED BLOOD COUNT 3.81 10^6/uL (4.00-5.40); WHITE BLOOD COUNT 9.5 10^3/uL (4.0-10.0)
[2024-10-26 10:57] LABS: BLOOD UREA NITROGEN 9 MG/DL (9-23); CALCIUM LEVEL 8.1 MG/DL (8.5-10.1); CARBON DIOXIDE LEVEL 27 MMOL/L (20-31); CHLORIDE LEVEL 102 MMOL/L (98-107); CREATININE FOR GFR 0.64 MG/DL (0.55-1.30); GLOMERULAR FILTRATION RATE > 90.0 (>58); GLUCOSE, FASTING 220 MG/DL (60-100); MAGNESIUM LEVEL 1.8 MG/DL (1.8-2.4); PHOSPHORUS LEVEL 2.2 MG/DL (2.5-4.9); POTASSIUM SERUM 3.5 MMOL/L (3.5-5.1); SODIUM LEVEL 136 MMOL/L (136-145)
[2024-10-26] MEDS: SODIUM PHOSPHATE INJ 30 MMOL in D5W 500 ML IV ONE (12:01)
[2024-10-26] MEDS: ALPRAZolam 0.5 MG TAB PO PRN (12:12)
[2024-10-26] MEDS: NORCO, ANEXSIA 5/325MG TABLET (HYDROcodone/ACETAMINOPHEN) PO PRN (12:28)
[2024-10-26] MEDS ORDERED: ALBUTEROL 90 MCG/ACT 8GM HFA INHALER INH PRN (13:30)
[2024-10-26] MEDS ORDERED: SUMAtriptan SUCCINATE 50MG TABLET PO PRN (14:15)
[2024-10-26] MEDS: PARoxetine 20MG TABLET PO SCH (14:41)
[2024-10-26] MEDS: ATORVASTATIN 20 MG TAB PO SCH (14:41)
[2024-10-26] MEDS: PANTOPRAZOLE 20 MG TAB PO SCH (14:42)
[2024-10-26 15:24] LABS: KETONE, URINE AUTO RFX NEGATIVE (NEGATIVE); LEUKOCYTE ESTERASE UR AUTO RFX NEGATIVE (NEGATIVE); NITRITE, URINE AUTO RFX NEGATIVE (NEGATIVE); RBC, URINE AUTO RFX 0 /HPF (0-3); SQUAM EPITHELIAL CELL UR AURFX 3 /HPF (0-6); WBC, URINE AUTO RFX 1 /HPF (0-3)
[2024-10-26 15:43] LABS: AMPHETAMINES LEVEL URINE NEGATIVE (NEGATIVE)
[2024-10-26 15:44] LABS: BARBITURATES URINE NEGATIVE (NEGATIVE); COCAINE METABOLITE URINE NEGATIVE (NEGATIVE); METHADONE URINE NEGATIVE (NEGATIVE); OPIATES URINE NEGATIVE (NEGATIVE); PHENCYCLIDINE URINE NEGATIVE (NEGATIVE)
[2024-10-26 15:46] LABS: BENZODIAZEPINES URINE POSITIVE (NEGATIVE); CANNABINOIDS URINE POSITIVE (NEGATIVE)
[2024-10-26] MEDS: METOCLOPRAMIDE 10MG TAB PO SCH (17:57)
[2024-10-26] MEDS: LanTUS (INSULIN GLARGINE INJ) 1 UNITS/0.01 ML SC SCH (20:54)
[2024-10-26] MEDS: busPIRone 10 MG TAB PO SCH (20:54)
[2024-10-27 04:00] VITALS: BP 129/86; TEMP 97.9; O2SAT 97
[2024-10-27 06:08] LABS: BASO # 0.1 10^3/uL (0.0-0.2); BASO % 0.6 % (0.0-1.0); EOS # 0.2 10^3/uL (0.0-0.5); HEMATOCRIT 32.1 % (36.0-47.0); HEMOGLOBIN 10.4 g/dl (12.0-15.5); LYMPH % 34.7 % (24.0-44.0); MEAN CORPUSCULAR HEMOGLOBIN 25.6 pg (27.0-33.0); MEAN CORPUSCULAR HGB CONC 32.4 g/dl (32.0-36.5); MEAN CORPUSCULAR VOLUME 79.1 fl (80.0-96.0); MONO # 0.6 10^3/uL (0.0-0.8); MONO % 6.7 % (2.0-8.0); NEUTROPHILS # 4.9 10^3/uL (1.5-8.5); NEUTROPHILS % 55.8 % (36.0-66.0); PLATELET COUNT, AUTOMATED 365 10^3/uL (150-450); RED BLOOD COUNT 4.06 10^6/uL (4.00-5.40); WHITE BLOOD COUNT 8.7 10^3/uL (4.0-10.0)
[2024-10-27 06:32] LABS: BLOOD UREA NITROGEN 12 MG/DL (9-23); CALCIUM LEVEL 8.3 MG/DL (8.5-10.1); CARBON DIOXIDE LEVEL 29 MMOL/L (20-31); CHLORIDE LEVEL 103 MMOL/L (98-107); GLOMERULAR FILTRATION RATE > 90.0 (>58); GLUCOSE, FASTING 87 MG/DL (60-100); MAGNESIUM LEVEL 1.7 MG/DL (1.8-2.4); PHOSPHORUS LEVEL 3.9 MG/DL (2.5-4.9); POTASSIUM SERUM 3.5 MMOL/L (3.5-5.1); SODIUM LEVEL 141 MMOL/L (136-145)
[2024-10-27 08:00] VITALS: BP 118/78; TEMP 97.9; O2SAT 95
[2024-10-27] MEDS: MAG SULF 1GM/100ML (MAG RUN) 1 GM in IV 1 EA IV SCH (08:09)
[2024-10-27 11:52] VITALS: BP 127/82; TEMP 98.1; O2SAT 98
== END 2024-10-27 13:48 | disposition home or self-care (01) | DRG 420 ==
LOC: M ED 07:58 → EDBD 07:58 → M ED INP 17:12 → M ICU 21:23 → M MSPAV 10-26 13:04
PROVIDERS: ADMIT General Practice; ATTEND Student in an Organized Health Care Education/Training Program
DX: E11.10 Type 2 diabetes mellitus with ketoacidosis without coma (principal); E83.42 Hypomagnesemia; I10 Essential (primary) hypertension; K31.84 Gastroparesis; E83.39 Other disorders of phosphorus metabolism; E78.5 Hyperlipidemia, unspecified; E28.2 Polycystic ovarian syndrome; G40.909 Epilepsy, unspecified, not intractable, without status epilepticus; G43.909 Migraine, unspecified, not intractable, without status migrainosus; M54.9 Dorsalgia, unspecified; G89.29 Other chronic pain; F41.9 Anxiety disorder, unspecified; I16.0 Hypertensive urgency; E11.65 Type 2 diabetes mellitus with hyperglycemia; E87.1 Hypo-osmolality and hyponatremia; N20.0 Calculus of kidney; F39 Unspecified mood [affective] disorder; Z90.49 Acquired absence of other specified parts of digestive tract; Z79.4 Long term (current) use of insulin; Z79.899 Other long term (current) drug therapy; Z88.8 Allergy status to other drugs, medicaments and biological substances; E11.43 Type 2 diabetes mellitus with diabetic autonomic (poly)neuropathy

== ENCOUNTER 2024-10-29 06:52 | Inpatient (IN) | payer OTHER ==
[~2024-10-29] VITALS: Ht 154.9 cm; Wt 66.2 kg
[2024-10-29] MEDS: LanTUS (INSULIN GLARGINE INJ) 1 UNITS/0.01 ML SC SCH (00:39)
[2024-10-29] MEDS: NS (Normal Saline) 0.9% 1,000 ML IV ONE ×2 (07:29→08:58)
[2024-10-29 07:41] LABS: BASO # 0.1 10^3/uL (0.0-0.2); BASO % 0.8 % (0.0-1.0); EOS # 0.1 10^3/uL (0.0-0.5); EOS % 0.6 % (0.0-3.0); HEMATOCRIT 34.7 % (36.0-47.0); HEMOGLOBIN 11.3 g/dl (12.0-15.5); LYMPH # 2.6 10^3/uL (1.5-5.0); LYMPH % 17.8 % (24.0-44.0); MEAN CORPUSCULAR HEMOGLOBIN 26.2 pg (27.0-33.0); MEAN CORPUSCULAR HGB CONC 32.6 g/dl (32.0-36.5); MEAN CORPUSCULAR VOLUME 80.3 fl (80.0-96.0); MONO # 0.7 10^3/uL (0.0-0.8); MONO % 4.9 % (2.0-8.0); NEUTROPHILS # 11.1 10^3/uL (1.5-8.5); NEUTROPHILS % 75.6 % (36.0-66.0); PLATELET COUNT, AUTOMATED 472 10^3/uL (150-450); RED BLOOD COUNT 4.32 10^6/uL (4.00-5.40); WHITE BLOOD COUNT 14.7 10^3/uL (4.0-10.0)
[2024-10-29 07:44] LABS: VENOUS BASE EXCESS 1.7 (-2.0-2.0); VENOUS HCO3 23.6 MMOL/L (23.0-27.0); VENOUS O2 SATURATION 95.2 % (60.0-80.0); VENOUS PARTIAL PRESSURE CO2 29.2 mmHg (38.0-50.0); VENOUS PARTIAL PRESSURE O2 66.5 mmHg (30.0-50.0); VENOUS PH 7.526 UNITS (7.330-7.430); VENOUS STANDARD HCO3 25.9 MMOL/L; VENOUS TOTAL CO2 24.5 MMOL/L (24.0-28.0)
[2024-10-29] MEDS: ONDANSETRON 4MG 2ML VIAL IV PRN (07:45)
[2024-10-29] MEDS: MORPHINE 4 MG/ML 1ML VIAL IV ONE ×2 (07:45→08:20)
[2024-10-29 08:04] LABS: ETHYL ALCOHOL (ETHANOL) < 0.003 % (0.000-0.010); LIPASE 50 U/L (12-53)
[2024-10-29 08:06] LABS: ACETONE/KETONE 0.13 MMOL/L (0.02-0.27)
[2024-10-29 08:08] LABS: ALKALINE PHOSPHATASE 134 U/L (35-104); ALT/SGPT 113 U/L (7.0-40); AST/SGOT 202 U/L (<34); BILIRUBIN,DIRECT 0.1 MG/DL (<0.4); BILIRUBIN,TOTAL 0.3 MG/DL (0.3-1.2); BLOOD UREA NITROGEN 13 MG/DL (9-23); CALCIUM LEVEL 9.3 MG/DL (8.5-10.1); CARBON DIOXIDE LEVEL 23 MMOL/L (20-31); CHLORIDE LEVEL 99 MMOL/L (98-107); CREATININE FOR GFR 0.49 MG/DL (0.55-1.30); GLOMERULAR FILTRATION RATE > 90.0 (>58); GLUCOSE, FASTING 248 MG/DL (60-100); MAGNESIUM LEVEL 1.8 MG/DL (1.8-2.4); PHOSPHORUS LEVEL 1.5 MG/DL (2.5-4.9); POTASSIUM SERUM 3.8 MMOL/L (3.5-5.1); SODIUM LEVEL 138 MMOL/L (136-145); TOTAL PROTEIN 7.3 G/DL (5.7-8.2)
[2024-10-29 08:33] LABS: HEMOGLOBIN A1c 9.7 % (4.0-6.0)
[2024-10-29 08:33] LABS: KETONE, URINE AUTO RFX NEGATIVE (NEGATIVE); LEUKOCYTE ESTERASE UR AUTO RFX NEGATIVE (NEGATIVE); NITRITE, URINE AUTO RFX NEGATIVE (NEGATIVE); RBC, URINE AUTO RFX 0 /HPF (0-3); SQUAM EPITHELIAL CELL UR AURFX 0 /HPF (0-6); WBC, URINE AUTO RFX 0 /HPF (0-3)
[2024-10-29] MEDS ORDERED: ISOVUE-370 76% 100ML VIAL As Ordered ONE (08:36)
[2024-10-29 08:58] LABS: AMPHETAMINES LEVEL URINE NEGATIVE (NEGATIVE); BARBITURATES URINE NEGATIVE (NEGATIVE); BENZODIAZEPINES URINE NEGATIVE (NEGATIVE); COCAINE METABOLITE URINE NEGATIVE (NEGATIVE); METHADONE URINE NEGATIVE (NEGATIVE); PHENCYCLIDINE URINE NEGATIVE (NEGATIVE)
[2024-10-29 09:00] LABS: CANNABINOIDS URINE POSITIVE (NEGATIVE); OPIATES URINE POSITIVE (NEGATIVE)
[2024-10-29 09:03] LABS: OSMOLALITY SERUM 295 MOSM/KG (275-295)
[2024-10-29] MEDS: POTASSIUM PHOSPHATE INJ 15 MMOL in D5W 250 ML IV ONE (09:25)
[2024-10-29] MEDS: PIPERACILLIN/TAZOBACTAM SOD 4.5 GM in DEXTROSE 5% (D5W) ADV/MINI-BAG 50 ML IV ONE (09:36)
[2024-10-29] MEDS: LORazepam 2 MG/ML 1ML VIAL IV STA (10:14)
[2024-10-29] MEDS: HumuLIN R (REGULAR) INSULIN (NovoLIN R) **100U/ML** PER UNIT IV ONE (12:41)
[2024-10-29 13:25] LABS: BLOOD UREA NITROGEN 10 MG/DL (9-23); CALCIUM LEVEL 7.5 MG/DL (8.5-10.1); CARBON DIOXIDE LEVEL 22 MMOL/L (20-31); CHLORIDE LEVEL 100 MMOL/L (98-107); CREATININE FOR GFR 0.46 MG/DL (0.55-1.30); GLOMERULAR FILTRATION RATE > 90.0 (>58); GLUCOSE, FASTING 411 MG/DL (60-100); PHOSPHORUS LEVEL 4.8 MG/DL (2.5-4.9); POTASSIUM SERUM 4.9 MMOL/L (3.5-5.1); SODIUM LEVEL 136 MMOL/L (136-145)
[2024-10-29] MEDS ORDERED: GLUCAGON INJ 1MG VIAL SC PRN (13:25)
[2024-10-29] MEDS ORDERED: PROMETHAZINE 25MG/ML 1ML VIAL IV PRN (13:25)
[2024-10-29] MEDS ORDERED: GLUCOSE 4 GM CHEW PO PRN (13:25)
[2024-10-29] MEDS ORDERED: DEXTROSE 50% 50ML SYRINGE IV PRN (13:25)
[2024-10-29] MEDS ORDERED: BASA100I SC (14:00)
[2024-10-29] MEDS ORDERED: INSU100I24 SC (14:08)
[2024-10-29] MEDS ORDERED: HOME MED LIST COMPLETE! XX SCH (14:10)
[2024-10-29] MEDS: NS (Normal Saline) 0.9% 1,000 ML IV SCH (15:07)
[2024-10-29] MEDS: MORPHINE 2 MG/ML 1ML VIAL IV PRN (15:08)
[2024-10-29] MEDS: METOCLOPRAMIDE INJ 10MG/2ML VIAL IV SCH (15:11)
[2024-10-29 15:50] VITALS: BP 116/73; TEMP 97.9; O2SAT 99
[2024-10-29] MEDS ORDERED: INSULIN LISPRO (NovoLOG) PER UNIT SC SCH (17:30)
[2024-10-29] MEDS: INSULIN LISPRO (NovoLOG) PER UNIT SC SCH ×3 (17:31→21:00)
[2024-10-29 18:25] LABS: BLOOD UREA NITROGEN 9 MG/DL (9-23); CARBON DIOXIDE LEVEL 19 MMOL/L (20-31); CHLORIDE LEVEL 98 MMOL/L (98-107); CREATININE FOR GFR 0.44 MG/DL (0.55-1.30); GLOMERULAR FILTRATION RATE > 90.0 (>58); GLUCOSE, FASTING 353 MG/DL (60-100); MAGNESIUM LEVEL 1.9 MG/DL (1.8-2.4); PHOSPHORUS LEVEL 3.2 MG/DL (2.5-4.9); POTASSIUM SERUM 4.6 MMOL/L (3.5-5.1); SODIUM LEVEL 133 MMOL/L (136-145)
[2024-10-29 20:00] VITALS: BP 123/76; TEMP 98.1; O2SAT 98
[2024-10-29] MEDS: PANTOPRAZOLE 40MG VIAL IV SCH (21:24)
[2024-10-29] MEDS: ALPRAZolam 0.5 MG TAB PO ONE (21:25)
[2024-10-29 21:48] LABS: VENOUS BASE EXCESS -3.5 (-2.0-2.0); VENOUS HCO3 20.9 MMOL/L (23.0-27.0); VENOUS O2 SATURATION 98.7 % (60.0-80.0); VENOUS PARTIAL PRESSURE CO2 35.3 mmHg (38.0-50.0); VENOUS PARTIAL PRESSURE O2 194.6 mmHg (30.0-50.0); VENOUS STANDARD HCO3 21.5 MMOL/L
[2024-10-29 22:31] LABS: ALBUMIN 3.3 G/DL (3.2-5.2); ALKALINE PHOSPHATASE 108 U/L (35-104); ALT/SGPT 73 U/L (7.0-40); AST/SGOT 50 U/L (<34); BILIRUBIN,DIRECT 0.2 MG/DL (<0.4); BILIRUBIN,TOTAL 0.4 MG/DL (0.3-1.2); BLOOD UREA NITROGEN 7 MG/DL (9-23); CALCIUM LEVEL 8.1 MG/DL (8.5-10.1); CARBON DIOXIDE LEVEL 23 MMOL/L (20-31); CHLORIDE LEVEL 102 MMOL/L (98-107); CREATININE FOR GFR 0.45 MG/DL (0.55-1.30); GLOMERULAR FILTRATION RATE > 90.0 (>58); GLUCOSE, FASTING 130 MG/DL (60-100); POTASSIUM SERUM 4.1 MMOL/L (3.5-5.1); SODIUM LEVEL 137 MMOL/L (136-145)
[2024-10-30 04:00] VITALS: BP 157/90; TEMP 97.5; O2SAT 100
[2024-10-30 05:54] LABS: BASO # 0.1 10^3/uL (0.0-0.2); EOS # 0.2 10^3/uL (0.0-0.5); EOS % 2.5 % (0.0-3.0); HEMATOCRIT 32.9 % (36.0-47.0); HEMOGLOBIN 10.4 g/dl (12.0-15.5); LYMPH # 3.3 10^3/uL (1.5-5.0); LYMPH % 39.3 % (24.0-44.0); MEAN CORPUSCULAR HEMOGLOBIN 25.7 pg (27.0-33.0); MEAN CORPUSCULAR HGB CONC 31.6 g/dl (32.0-36.5); MEAN CORPUSCULAR VOLUME 81.2 fl (80.0-96.0); MONO # 0.5 10^3/uL (0.0-0.8); MONO % 5.8 % (2.0-8.0); NEUTROPHILS # 4.3 10^3/uL (1.5-8.5); NEUTROPHILS % 51.2 % (36.0-66.0); PLATELET COUNT, AUTOMATED 387 10^3/uL (150-450); RED BLOOD COUNT 4.05 10^6/uL (4.00-5.40); WHITE BLOOD COUNT 8.4 10^3/uL (4.0-10.0)
[2024-10-30 06:18] LABS: BLOOD UREA NITROGEN 6 MG/DL (9-23); CALCIUM LEVEL 8.3 MG/DL (8.5-10.1); CARBON DIOXIDE LEVEL 24 MMOL/L (20-31); CHLORIDE LEVEL 103 MMOL/L (98-107); CREATININE FOR GFR 0.45 MG/DL (0.55-1.30); GLOMERULAR FILTRATION RATE > 90.0 (>58); GLUCOSE, FASTING 168 MG/DL (60-100); SODIUM LEVEL 137 MMOL/L (136-145)
[2024-10-30] MEDS: ENOXAPARIN 40MG/0.4ML SYRINGE (J1650 PER 10MG) SC SCH (08:03)
[2024-10-30] MEDS: LanTUS (INSULIN GLARGINE INJ) 1 UNITS/0.01 ML SC SCH (08:04)
[2024-10-30 08:18] LABS: HEPATITIS B SURFACE ANTIGEN NEGATIVE (NEGATIVE)
[2024-10-30 08:38] LABS: HEPATITIS B CORE ANTIBODY IGM NEGATIVE (NEGATIVE)
[2024-10-30 08:39] LABS: HEPATITIS C VIRUS ABY INDEX 0.03 INDEX (<0.8)
[2024-10-30] MEDS ORDERED: ONDA-282 PO (11:57)
[2024-10-30 12:00] VITALS: BP 153/94; TEMP 97.5; O2SAT 99
[2024-10-30] MEDS: ALPRAZolam 0.25 MG TAB PO ONE (12:34)
== END 2024-10-30 13:14 | disposition home or self-care (01) | DRG 48 ==
LOC: EDBD 06:52 → M ED 06:52 → M ED INP 13:25 → M MSPAV 15:53
PROVIDERS: ADMIT Internal Medicine Nephrology; ATTEND Student in an Organized Health Care Education/Training Program
DX: E11.43 Type 2 diabetes mellitus with diabetic autonomic (poly)neuropathy (principal); E11.65 Type 2 diabetes mellitus with hyperglycemia; I10 Essential (primary) hypertension; E83.39 Other disorders of phosphorus metabolism; F11.90 Opioid use, unspecified, uncomplicated; F12.90 Cannabis use, unspecified, uncomplicated; E78.5 Hyperlipidemia, unspecified; G40.909 Epilepsy, unspecified, not intractable, without status epilepticus; R11.2 Nausea with vomiting, unspecified; R94.5 Abnormal results of liver function studies; Z79.899 Other long term (current) drug therapy; Z79.4 Long term (current) use of insulin; Z88.8 Allergy status to other drugs, medicaments and biological substances; E28.2 Polycystic ovarian syndrome; G43.909 Migraine, unspecified, not intractable, without status migrainosus; F41.9 Anxiety disorder, unspecified

== ENCOUNTER 2024-11-15 09:17 | Inpatient (IN) | payer MEDICAID, OTHER ==
[~2024-11-15] VITALS: Ht 154.9 cm; Wt 62.0 kg
[2024-11-15 10:00] LABS: BASO # 0.1 10^3/uL (0.0-0.2); BASO % 0.7 % (0.0-1.0); EOS # 0.1 10^3/uL (0.0-0.5); EOS % 0.8 % (0.0-3.0); HEMATOCRIT 36.7 % (36.0-47.0); HEMOGLOBIN 12.2 g/dl (12.0-15.5); LYMPH # 2.5 10^3/uL (1.5-5.0); LYMPH % 16.8 % (24.0-44.0); MEAN CORPUSCULAR HGB CONC 33.2 g/dl (32.0-36.5); MEAN CORPUSCULAR VOLUME 78.1 fl (80.0-96.0); MONO # 0.7 10^3/uL (0.0-0.8); MONO % 4.5 % (2.0-8.0); NEUTROPHILS # 11.2 10^3/uL (1.5-8.5); NEUTROPHILS % 76.9 % (36.0-66.0); PLATELET COUNT, AUTOMATED 398 10^3/uL (150-450); WHITE BLOOD COUNT 14.6 10^3/uL (4.0-10.0)
[2024-11-15 10:06] LABS: VENOUS BASE EXCESS -1.3 (-2.0-2.0); VENOUS HCO3 20.3 MMOL/L (23.0-27.0); VENOUS O2 SATURATION 99.4 % (60.0-80.0); VENOUS PARTIAL PRESSURE CO2 26.1 mmHg (38.0-50.0); VENOUS PH 7.509 UNITS (7.330-7.430); VENOUS STANDARD HCO3 23.4 MMOL/L; VENOUS TOTAL CO2 21.1 MMOL/L (24.0-28.0)
[2024-11-15] MEDS: NS (Normal Saline) 0.9% 1,000 ML IV ONE ×4 (10:10→20:04)
[2024-11-15] MEDS: HALOPERIDOL LACTATE 5MG/ML VIAL IV ONE (10:10)
[2024-11-15 12:15] LABS: LIPASE 43 U/L (12-53)
[2024-11-15 12:22] LABS: ALKALINE PHOSPHATASE 107 U/L (35-104); ALT/SGPT 32 U/L (7.0-40); AST/SGOT 21 U/L (<34); BILIRUBIN,DIRECT 0.2 MG/DL (<0.4); BILIRUBIN,TOTAL 0.5 MG/DL (0.3-1.2); BLOOD UREA NITROGEN 13 MG/DL (9-23); CALCIUM LEVEL 8.3 MG/DL (8.5-10.1); CARBON DIOXIDE LEVEL 19 MMOL/L (20-31); CHLORIDE LEVEL 102 MMOL/L (98-107); CREATININE FOR GFR 0.46 MG/DL (0.55-1.30); GLOMERULAR FILTRATION RATE > 90.0 (>58); GLUCOSE, FASTING 426 MG/DL (60-100); SODIUM LEVEL 139 MMOL/L (136-145); TOTAL PROTEIN 7.1 G/DL (5.7-8.2)
[2024-11-15 12:34] LABS: ACETONE/KETONE 4.31 MMOL/L (0.02-0.27)
[2024-11-15] MEDS: HumuLIN R (REGULAR) INSULIN (NovoLIN R) **100U/ML** PER UNIT IV ONE ×2 (13:05→15:41)
[2024-11-15] MEDS: PERCOCET 5MG/325MG TAB PO ONE (13:06)
[2024-11-15 14:37] LABS: VENOUS BASE EXCESS -7.5 (-2.0-2.0); VENOUS HCO3 16.2 MMOL/L (23.0-27.0); VENOUS O2 SATURATION 99.5 % (60.0-80.0); VENOUS PARTIAL PRESSURE CO2 27.9 mmHg (38.0-50.0); VENOUS PARTIAL PRESSURE O2 238.5 mmHg (30.0-50.0); VENOUS PH 7.382 UNITS (7.330-7.430); VENOUS STANDARD HCO3 18.5 MMOL/L; VENOUS TOTAL CO2 17.1 MMOL/L (24.0-28.0)
[2024-11-15] MEDS ORDERED: BUSP30TA PO (14:41)
[2024-11-15] MEDS ORDERED: ONDA-83 PO (14:41)
[2024-11-15] MEDS ORDERED: HOME MED LIST COMPLETE! XX SCH (14:45)
[2024-11-15 15:05] LABS: BLOOD UREA NITROGEN 13 MG/DL (9-23); CALCIUM LEVEL 8.1 MG/DL (8.5-10.1); CARBON DIOXIDE LEVEL 18 MMOL/L (20-31); CHLORIDE LEVEL 104 MMOL/L (98-107); CREATININE FOR GFR 0.44 MG/DL (0.55-1.30); GLOMERULAR FILTRATION RATE > 90.0 (>58); GLUCOSE, FASTING 319 MG/DL (60-100); POTASSIUM SERUM 4.4 MMOL/L (3.5-5.1); SODIUM LEVEL 139 MMOL/L (136-145)
[2024-11-15 17:23] LABS: VENOUS BASE EXCESS -7.4 (-2.0-2.0); VENOUS HCO3 16.3 MMOL/L (23.0-27.0); VENOUS O2 SATURATION 98.7 % (60.0-80.0); VENOUS PARTIAL PRESSURE CO2 28.2 mmHg (38.0-50.0); VENOUS PARTIAL PRESSURE O2 153.2 mmHg (30.0-50.0); VENOUS STANDARD HCO3 18.5 MMOL/L; VENOUS TOTAL CO2 17.2 MMOL/L (24.0-28.0)
[2024-11-15 17:58] LABS: BLOOD UREA NITROGEN 11 MG/DL (9-23); CARBON DIOXIDE LEVEL 18 MMOL/L (20-31); CHLORIDE LEVEL 106 MMOL/L (98-107); CREATININE FOR GFR 0.44 MG/DL (0.55-1.30); GLOMERULAR FILTRATION RATE > 90.0 (>58); GLUCOSE, FASTING 271 MG/DL (60-100); POTASSIUM SERUM 4.1 MMOL/L (3.5-5.1); SODIUM LEVEL 141 MMOL/L (136-145)
[2024-11-15 17:59] LABS: ACETONE/KETONE 3.47 MMOL/L (0.02-0.27)
[2024-11-15] MEDS ORDERED: INSULIN IV RATE CHANGE DOCUMENTATION ML/HR XX SCH (18:05)
[2024-11-15] MEDS ORDERED: D5W/0.9% SODIUM CHLORIDE 1,000 ML IV SCH (18:20)
[2024-11-15] MEDS: INSULIN REGULAR IN 0.9 % NACL 100 UNIT in IV 1 EA IV SCH (18:23)
[2024-11-15] MEDS: LanTUS (INSULIN GLARGINE INJ) 1 UNITS/0.01 ML SC SCH (20:04)
[2024-11-15 20:29] LABS: HEMOGLOBIN A1c 10.6 % (4.0-6.0)
[2024-11-15] MEDS ORDERED: INSULIN REGULAR IN 0.9 % NACL 100 UNIT in IV 1 EA IV SCH (21:00)
[2024-11-15] MEDS: KCL 10MEQ/100ML SWI (KRUN) 10 MEQ in IV 1 EA IV ONE (21:00)
[2024-11-15 21:13] VITALS: BP 136/70; TEMP 97.9; O2SAT 100
[2024-11-15] MEDS: INSULIN IV RATE CHANGE DOCUMENTATION ML/HR XX SCH (21:16)
[2024-11-15] MEDS: D5W/0.45% SODIUM CHLORIDE 1,000 ML IV SCH (21:23)
[2024-11-15 22:00] VITALS: BP 103/55
[2024-11-15] MEDS: NORCO, ANEXSIA 5/325MG TABLET (HYDROcodone/ACETAMINOPHEN) PO PRN (22:01)
[2024-11-15 23:00] VITALS: BP 98/57
[2024-11-15] MEDS: ALPRAZolam 0.5 MG TAB PO PRN (23:03)
[2024-11-15 23:52] LABS: BLOOD UREA NITROGEN 11 MG/DL (9-23); CALCIUM LEVEL 8.2 MG/DL (8.5-10.1); CARBON DIOXIDE LEVEL 23 MMOL/L (20-31); CHLORIDE LEVEL 104 MMOL/L (98-107); CREATININE FOR GFR 0.51 MG/DL (0.55-1.30); GLOMERULAR FILTRATION RATE > 90.0 (>58); GLUCOSE, FASTING 104 MG/DL (60-100); PHOSPHORUS LEVEL 1.4 MG/DL (2.5-4.9); POTASSIUM SERUM 3.5 MMOL/L (3.5-5.1); SODIUM LEVEL 138 MMOL/L (136-145)
[2024-11-16] VITALS: BP 113/62; TEMP 97.6; O2SAT 99
[2024-11-16 03:22] LABS: BLOOD UREA NITROGEN 8 MG/DL (9-23); CALCIUM LEVEL 8.1 MG/DL (8.5-10.1); CARBON DIOXIDE LEVEL 20 MMOL/L (20-31); CHLORIDE LEVEL 99 MMOL/L (98-107); CREATININE FOR GFR 0.52 MG/DL (0.55-1.30); GLOMERULAR FILTRATION RATE > 90.0 (>58); GLUCOSE, FASTING 195 MG/DL (60-100); PHOSPHORUS LEVEL 3.2 MG/DL (2.5-4.9); POTASSIUM SERUM 3.4 MMOL/L (3.5-5.1); SODIUM LEVEL 135 MMOL/L (136-145)
[2024-11-16] MEDS: NS (Normal Saline) 0.9% 1,000 ML IV SCH (03:55)
[2024-11-16 04:00] VITALS: BP 129/66; TEMP 97.7; O2SAT 100
[2024-11-16] MEDS: NS (Normal Saline) 0.9% 1,000 ML IV ONE (04:21)
[2024-11-16 06:32] LABS: BLOOD UREA NITROGEN 8 MG/DL (9-23); CARBON DIOXIDE LEVEL 21 MMOL/L (20-31); CHLORIDE LEVEL 104 MMOL/L (98-107); CREATININE FOR GFR 0.49 MG/DL (0.55-1.30); GLOMERULAR FILTRATION RATE > 90.0 (>58); GLUCOSE, FASTING 238 MG/DL (60-100); MAGNESIUM LEVEL 1.5 MG/DL (1.8-2.4); PHOSPHORUS LEVEL 2.9 MG/DL (2.5-4.9); POTASSIUM SERUM 3.7 MMOL/L (3.5-5.1); SODIUM LEVEL 136 MMOL/L (136-145)
[2024-11-16 06:50] LABS: OSMOLALITY SERUM 292 MOSM/KG (275-295)
[2024-11-16] MEDS ORDERED: GLUCAGON INJ 1MG VIAL SC PRN (07:20)
[2024-11-16] MEDS ORDERED: DEXTROSE 50% 50ML SYRINGE IV PRN (07:20)
[2024-11-16] MEDS ORDERED: GLUCOSE 4 GM CHEW PO PRN (07:20)
[2024-11-16] MEDS: INSULIN LISPRO (NovoLOG) PER UNIT SC SCH (07:51)
[2024-11-16] MEDS: PANTOPRAZOLE 40MG VIAL IV SCH (07:51)
[2024-11-16 08:00] VITALS: BP 151/87; TEMP 99.7; O2SAT 100
[2024-11-16 08:03] LABS: BASO # 0.1 10^3/uL (0.0-0.2); BASO % 0.6 % (0.0-1.0); EOS # 0.1 10^3/uL (0.0-0.5); EOS % 0.9 % (0.0-3.0); HEMATOCRIT 33.1 % (36.0-47.0); HEMOGLOBIN 10.6 g/dl (12.0-15.5); LYMPH # 3.9 10^3/uL (1.5-5.0); LYMPH % 25.9 % (24.0-44.0); MEAN CORPUSCULAR HEMOGLOBIN 25.7 pg (27.0-33.0); MEAN CORPUSCULAR VOLUME 80.1 fl (80.0-96.0); MONO # 1.1 10^3/uL (0.0-0.8); MONO % 7.3 % (2.0-8.0); NEUTROPHILS # 9.7 10^3/uL (1.5-8.5); NEUTROPHILS % 64.9 % (36.0-66.0); PLATELET COUNT, AUTOMATED 307 10^3/uL (150-450); RED BLOOD COUNT 4.13 10^6/uL (4.00-5.40); WHITE BLOOD COUNT 14.9 10^3/uL (4.0-10.0)
[2024-11-16] MEDS: MAG SULF 1GM/100ML (MAG RUN) 1 GM in IV 1 EA IV SCH (09:32)
[2024-11-16 12:00] VITALS: BP 119/69; TEMP 98.3; O2SAT 96
[2024-11-16 12:14] LABS: BASO # 0.1 10^3/uL (0.0-0.2); BASO % 0.7 % (0.0-1.0); EOS # 0.2 10^3/uL (0.0-0.5); EOS % 1.2 % (0.0-3.0); HEMATOCRIT 31.9 % (36.0-47.0); HEMOGLOBIN 10.3 g/dl (12.0-15.5); LYMPH # 3.9 10^3/uL (1.5-5.0); LYMPH % 30.9 % (24.0-44.0); MEAN CORPUSCULAR HEMOGLOBIN 25.7 pg (27.0-33.0); MEAN CORPUSCULAR HGB CONC 32.3 g/dl (32.0-36.5); MEAN CORPUSCULAR VOLUME 79.6 fl (80.0-96.0); MONO # 0.9 10^3/uL (0.0-0.8); MONO % 7.3 % (2.0-8.0); NEUTROPHILS # 7.4 10^3/uL (1.5-8.5); NEUTROPHILS % 59.6 % (36.0-66.0); PLATELET COUNT, AUTOMATED 323 10^3/uL (150-450); RED BLOOD COUNT 4.01 10^6/uL (4.00-5.40); WHITE BLOOD COUNT 12.5 10^3/uL (4.0-10.0)
[2024-11-16] MEDS: LanTUS (INSULIN GLARGINE INJ) 1 UNITS/0.01 ML SC ONE (12:17)
[2024-11-16] MEDS: ENOXAPARIN 30MG/0.3ML SYRINGE (J1650 PER 10MG) SC SCH (12:19)
[2024-11-16 12:39] LABS: BLOOD UREA NITROGEN 6 MG/DL (9-23); CALCIUM LEVEL 8.5 MG/DL (8.5-10.1); CARBON DIOXIDE LEVEL 25 MMOL/L (20-31); CHLORIDE LEVEL 103 MMOL/L (98-107); CREATININE FOR GFR 0.57 MG/DL (0.55-1.30); GLOMERULAR FILTRATION RATE > 90.0 (>58); GLUCOSE, FASTING 227 MG/DL (60-100); POTASSIUM SERUM 3.7 MMOL/L (3.5-5.1); SODIUM LEVEL 138 MMOL/L (136-145)
[2024-11-16 12:41] LABS: PHOSPHORUS LEVEL 2.2 MG/DL (2.5-4.9)
[2024-11-16 13:19] VITALS: BP 119/69; TEMP 98.3; O2SAT 100
[2024-11-16] MEDS ORDERED: INSULIN LISPRO (NovoLOG) PER UNIT SC SCH (21:00)
== END 2024-11-16 13:57 | disposition home or self-care (01) | DRG 420 ==
LOC: M ED 09:17 → EDBD 09:17 → M ED INP 20:36 → M ICU 21:06
PROVIDERS: ADMIT Family Medicine; ATTEND Family Medicine
DX: E11.10 Type 2 diabetes mellitus with ketoacidosis without coma (principal); K31.84 Gastroparesis; Z79.4 Long term (current) use of insulin; Z79.899 Other long term (current) drug therapy; Z88.8 Allergy status to other drugs, medicaments and biological substances; E11.51 Type 2 diabetes mellitus with diabetic peripheral angiopathy without gangrene

== ENCOUNTER 2025-01-17 10:04 | Emergency (ER) | payer MEDICAID, OTHER ==
[~2025-01-17] VITALS: Ht 154.9 cm; Wt 71.6 kg
[~2025-01-17 10:04] MED LIST changes: +BUSP30TA PO; +ONDA-83 PO
[2025-01-17 10:23] VITALS: TEMP 98.1
[2025-01-17 10:31] VITALS: BP 159/85
[2025-01-17 10:42] LABS: VENOUS BASE EXCESS -4.8 (-2.0-2.0); VENOUS HCO3 15.2 MMOL/L (23.0-27.0); VENOUS O2 SATURATION 98.9 % (60.0-80.0); VENOUS PARTIAL PRESSURE CO2 18.3 mmHg (38.0-50.0); VENOUS PARTIAL PRESSURE O2 157.2 mmHg (30.0-50.0); VENOUS PH 7.536 UNITS (7.330-7.430); VENOUS STANDARD HCO3 20.5 MMOL/L; VENOUS TOTAL CO2 15.7 MMOL/L (24.0-28.0)
[2025-01-17 10:49] VITALS: O2SAT 97
[2025-01-17 10:55] LABS: BASO # 0.1 10^3/uL (0.0-0.2); BASO % 0.6 % (0.0-1.0); EOS # 0.2 10^3/uL (0.0-0.5); EOS % 0.8 % (0.0-3.0); LYMPH # 2.3 10^3/uL (1.5-5.0); LYMPH % 11.2 % (24.0-44.0); MONO # 0.9 10^3/uL (0.0-0.8); MONO % 4.2 % (2.0-8.0); NEUTROPHILS # 17.0 10^3/uL (1.5-8.5); NEUTROPHILS % 82.8 % (36.0-66.0); PLATELET COUNT, AUTOMATED 456 10^3/uL (150-450)
[2025-01-17 11:15] LABS: ESTIMATED AVERAGE GLUCOSE 240.0 MG/DL (60-110)
[2025-01-17 11:23] LABS: ALT/SGPT 27 U/L (7.0-40); AST/SGOT 17 U/L (<34); CALCIUM LEVEL 9.3 MG/DL (8.5-10.1); CARBON DIOXIDE LEVEL 16 MMOL/L (20-31); CHLORIDE LEVEL 105 MMOL/L (98-107); CREATININE FOR GFR 0.62 MG/DL (0.55-1.30); GLOMERULAR FILTRATION RATE > 90.0 (>58); POTASSIUM SERUM 4.6 MMOL/L (3.5-5.1); SODIUM LEVEL 139 MMOL/L (136-145)
[2025-01-17 11:24] LABS: ACETONE/KETONE 2.08 MMOL/L (0.02-0.27)
[2025-01-17] MEDS: HALOPERIDOL LACTATE 5 MG/ML VIAL IV ONE (12:39)
[2025-01-17] MEDS: diphenhydrAMINE 50 MG/ML VIAL IV ONE (12:39)
[2025-01-17] MEDS: NS (Normal Saline) 0.9% 1,000 ML IV ONE (12:40)
== END 2025-01-17 13:03 | disposition left against medical advice (07) ==
LOC: EDBD 10:04 → M ED 10:04
DX: F12.188 Cannabis abuse with other cannabis-induced disorder (principal); E11.10 Type 2 diabetes mellitus with ketoacidosis without coma; G40.89 Other seizures; Z88.8 Allergy status to other drugs, medicaments and biological substances; Z79.1 Long term (current) use of non-steroidal anti-inflammatories (NSAID); Z79.51 Long term (current) use of inhaled steroids; Z79.4 Long term (current) use of insulin; Z79.899 Other long term (current) drug therapy; Z53.9 Procedure and treatment not carried out, unspecified reason
CPT/HCPCS: 80048; 80076; 82010; 82803; 83036; 83690; 85025; 96374; 99284; J1200; J1630

== ENCOUNTER 2025-06-16 17:40 | Observation (INO) | payer MEDICARE, OTHER ==
[~2025-06-16] VITALS: Ht 154.9 cm; Wt 73.7 kg
[~2025-06-16 17:40] MED LIST changes: -BACTDSTA PO; -PROC5TAB57 PO; +PROC5TAB81 PO; +SULF-8 PO
[2025-06-16 18:24] LABS: VENOUS BASE EXCESS -3.7 (-2.0-2.0); VENOUS HCO3 15.0 MMOL/L (23.0-27.0); VENOUS O2 SATURATION 99.0 % (60.0-80.0); VENOUS PARTIAL PRESSURE CO2 15.6 mmHg (38.0-50.0); VENOUS PARTIAL PRESSURE O2 213.4 mmHg (30.0-50.0); VENOUS STANDARD HCO3 21.4 MMOL/L; VENOUS TOTAL CO2 15.5 MMOL/L (24.0-28.0)
[2025-06-16 18:29] LABS: VENOUS PH 7.601 UNITS (7.330-7.430)
[2025-06-16 18:32] LABS: BASO # 0.1 10^3/uL (0.0-0.2); BASO % 0.6 % (0.0-1.0); EOS # 0.0 10^3/uL (0.0-0.5); EOS % 0.1 % (0.0-3.0); LYMPH # 1.8 10^3/uL (1.5-5.0); LYMPH % 9.6 % (24.0-44.0); MONO # 0.5 10^3/uL (0.0-0.8); MONO % 2.8 % (2.0-8.0); NEUTROPHILS # 16.4 10^3/uL (1.5-8.5); NEUTROPHILS % 86.6 % (36.0-66.0); PLATELET COUNT, AUTOMATED 538 10^3/uL (150-450)
[2025-06-16 18:50] LABS: OSMOLALITY SERUM 308.0 MOSM/KG (275-295)
[2025-06-16] MEDS: NS (Normal Saline) 0.9% 1,000 ML IV ONE ×2 (18:53→20:23)
[2025-06-16] MEDS: HALOPERIDOL LACTATE 5 MG/ML VIAL IV ONE (18:53)
[2025-06-16 18:54] LABS: ACETONE/KETONE 2.87 MMOL/L (0.02-0.27); ALT/SGPT 24.0 U/L (7.0-40); AST/SGOT 18.0 U/L (<34)
[2025-06-16 19:21] LABS: ESTIMATED AVERAGE GLUCOSE 243.0 MG/DL (60-110)
[2025-06-16] MEDS: HumuLIN R (REGULAR) INSULIN (NovoLIN R) **100 U/ML** PER UNIT IV ONE (20:22)
[2025-06-16] MEDS: MORPHINE 4 MG/ML 1 ML VIAL IV ONE (20:22)
[2025-06-16] MEDS: diphenhydrAMINE 50 MG/ML VIAL IV STA (20:22)
[2025-06-16 22:46] LABS: VENOUS BASE EXCESS -7.8 (-2.0-2.0); VENOUS HCO3 16.6 MMOL/L (23.0-27.0); VENOUS O2 SATURATION 99.0 % (60.0-80.0); VENOUS PARTIAL PRESSURE CO2 30.7 mmHg (38.0-50.0); VENOUS PARTIAL PRESSURE O2 151.8 mmHg (30.0-50.0); VENOUS PH 7.352 UNITS (7.330-7.430); VENOUS STANDARD HCO3 18.2 MMOL/L; VENOUS TOTAL CO2 17.6 MMOL/L (24.0-28.0)
[2025-06-16 23:28] LABS: CALCIUM LEVEL 8.0 MG/DL (8.5-10.1); CARBON DIOXIDE LEVEL 18 MMOL/L (20-31); CHLORIDE LEVEL 106 MMOL/L (98-107); CREATININE FOR GFR 0.51 MG/DL (0.55-1.30); GLOMERULAR FILTRATION RATE > 90.0 (>58); POTASSIUM SERUM 4.0 MMOL/L (3.5-5.1); SODIUM LEVEL 139 MMOL/L (136-145)
[2025-06-16] MEDS: ONDANSETRON 4MG/2ML VIAL IV ONE (23:58)
[2025-06-17] MEDS ORDERED: ACETAMINOPHEN 325 MG TAB PO PRN (00:15)
[2025-06-17] MEDS ORDERED: GLUCAGON INJ 1 MG VIAL SC PRN ×3 (00:15→09:00)
[2025-06-17] MEDS: NS (Normal Saline) 0.9% 1,000 ML IV SCH (00:15)
[2025-06-17] MEDS ORDERED: GLUCOSE 4 GM CHEW PO PRN ×3 (00:15→09:00)
[2025-06-17] MEDS ORDERED: ONDANSETRON 4MG/2ML VIAL IV PRN (00:15)
[2025-06-17] MEDS ORDERED: DEXTROSE 50% 50 ML SYRINGE IV PRN ×2 (00:15→09:00)
[2025-06-17 01:49] LABS: PLATELET COUNT, AUTOMATED 436 10^3/uL (150-450)
[2025-06-17 02:04] LABS: CALCIUM LEVEL 7.7 MG/DL (8.5-10.1); CARBON DIOXIDE LEVEL 16 MMOL/L (20-31); CHLORIDE LEVEL 106 MMOL/L (98-107); CREATININE FOR GFR 0.56 MG/DL (0.55-1.30); GLOMERULAR FILTRATION RATE > 90.0 (>58); POTASSIUM SERUM 4.5 MMOL/L (3.5-5.1); SODIUM LEVEL 138 MMOL/L (136-145)
[2025-06-17] MEDS ORDERED: HYDR50TA70 PO (03:48)
[2025-06-17] MEDS ORDERED: HOME MED LIST COMPLETE! XX SCH (03:55)
[2025-06-17] MEDS: INSULIN LISPRO (NovoLOG) PER UNIT SC SCH (05:14)
[2025-06-17] MEDS: LR 1,000 ML IV ONE (07:28)
[2025-06-17] MEDS: ENOXAPARIN 40 MG/0.4 ML SYRINGE (J1650 PER 10MG) SC SCH (08:47)
[2025-06-17] MEDS ORDERED: LanTUS (INSULIN GLARGINE INJ) 1 UNITS/0.01 ML SC SCH (09:00)
[2025-06-17] MEDS: LR 1,000 ML IV SCH (09:03)
[2025-06-17] MEDS: PARoxetine 20MG TABLET PO SCH (09:04)
[2025-06-17] MEDS: LanTUS (INSULIN GLARGINE INJ) 1 UNITS/0.01 ML SC SCH (09:04)
[2025-06-17] MEDS: PANTOPRAZOLE 40MG TAB PO SCH (09:04)
[2025-06-17] MEDS: ATORVASTATIN 20 MG TAB PO SCH (09:04)
[2025-06-17 11:30] VITALS: BP 117/65; TEMP 98.9; O2SAT 100
[2025-06-17] MEDS ORDERED: INSULIN LISPRO (NovoLOG) PER UNIT SC SCH ×2 (12:00→21:00)
== END 2025-06-17 12:10 | disposition left against medical advice (07) ==
LOC: EDBD 17:40 → M ED 17:40 → M ED INP 17:41
PROVIDERS: ADMIT Student in an Organized Health Care Education/Training Program; ATTEND Student in an Organized Health Care Education/Training Program
DX: R11.2 Nausea with vomiting, unspecified (principal); E11.43 Type 2 diabetes mellitus with diabetic autonomic (poly)neuropathy; K31.84 Gastroparesis; E78.5 Hyperlipidemia, unspecified; F41.9 Anxiety disorder, unspecified; I10 Essential (primary) hypertension; Z79.4 Long term (current) use of insulin; Z79.899 Other long term (current) drug therapy; Z88.8 Allergy status to other drugs, medicaments and biological substances
CPT/HCPCS: 36415; 80047; 80048; 80076; 82010; 82803; 83036; 83690; 83930; 85025; 85027; 93005; 93041; 94760; 96361; 96374; 96375; 96376; 99285; G0378; J1200; J1630; J1815; J2405; J2765

== ENCOUNTER 2025-06-29 05:06 | Observation (INO) | payer OTHER ==
[~2025-06-29] VITALS: Ht 154.9 cm; Wt 79.0 kg
[~2025-06-29 05:06] MED LIST changes: +HYDR50TA70 PO
[2025-06-29 05:44] LABS: VENOUS BASE EXCESS -1.1 (-2.0-2.0); VENOUS HCO3 20.5 MMOL/L (23.0-27.0); VENOUS PARTIAL PRESSURE CO2 26.4 mmHg (38.0-50.0); VENOUS PARTIAL PRESSURE O2 140.6 mmHg (30.0-50.0); VENOUS PH 7.509 UNITS (7.330-7.430); VENOUS STANDARD HCO3 23.6 MMOL/L; VENOUS TOTAL CO2 21.4 MMOL/L (24.0-28.0)
[2025-06-29 05:45] LABS: VENOUS O2 SATURATION 99.3 % (60.0-80.0)
[2025-06-29 06:02] LABS: BASO # 0.2 10^3/uL (0.0-0.2); BASO % 0.9 % (0.0-1.0); EOS # 0.3 10^3/uL (0.0-0.5); EOS % 2.1 % (0.0-3.0); LYMPH # 3.1 10^3/uL (1.5-5.0); LYMPH % 18.8 % (24.0-44.0); MONO # 1.0 10^3/uL (0.0-0.8); MONO % 6.3 % (2.0-8.0); NEUTROPHILS # 11.7 10^3/uL (1.5-8.5); NEUTROPHILS % 71.5 % (36.0-66.0); PLATELET COUNT, AUTOMATED 511 10^3/uL (150-450)
[2025-06-29 06:10] LABS: ACETONE/KETONE 0.18 MMOL/L (0.02-0.27)
[2025-06-29] MEDS: NS (Normal Saline) 0.9% 1,000 ML IV ONE ×3 (06:18→20:14)
[2025-06-29] MEDS: KETOROLAC 30 MG/ML 1 ML VIAL IV ONE (06:19)
[2025-06-29 06:20] LABS: ALT/SGPT 18 U/L (7.0-40); AST/SGOT 25 U/L (<34); CALCIUM LEVEL 9.2 MG/DL (8.5-10.1); CARBON DIOXIDE LEVEL 19 MMOL/L (20-31); CHLORIDE LEVEL 106 MMOL/L (98-107); CREATININE FOR GFR 0.61 MG/DL (0.55-1.30); GLOMERULAR FILTRATION RATE > 90.0 (>58); POTASSIUM SERUM 4.7 MMOL/L (3.5-5.1); SODIUM LEVEL 140 MMOL/L (136-145)
[2025-06-29] MEDS: HALOPERIDOL LACTATE 5 MG/ML VIAL IV ONE (06:21)
[2025-06-29 06:22] LABS: KETONE, URINE AUTO RFX NEGATIVE (NEGATIVE); LEUKOCYTE ESTERASE UR AUTO RFX NEGATIVE (NEGATIVE); MUCUS, URINE RFX SMALL (NEGATIVE); NITRITE, URINE AUTO RFX NEGATIVE (NEGATIVE); RBC, URINE AUTO RFX 5 /HPF (0-3); SQUAM EPITHELIAL CELL UR AURFX 12 /HPF (0-6); WBC, URINE AUTO RFX 1 /HPF (0-3); YEAST LIKE CELL URINE AUTO RFX SMALL
[2025-06-29 06:29] LABS: URINE PREG TEST NEGATIVE (NEGATIVE)
[2025-06-29 06:32] LABS: AMPHETAMINES LEVEL URINE NEGATIVE (NEGATIVE); BARBITURATES URINE NEGATIVE (NEGATIVE); BENZODIAZEPINES URINE NEGATIVE (NEGATIVE); COCAINE METABOLITE URINE NEGATIVE (NEGATIVE); METHADONE URINE NEGATIVE (NEGATIVE)
[2025-06-29 06:33] LABS: PHENCYCLIDINE URINE NEGATIVE (NEGATIVE)
[2025-06-29 06:35] LABS: CANNABINOIDS URINE POSITIVE (NEGATIVE); OPIATES URINE POSITIVE (NEGATIVE)
[2025-06-29] MEDS ORDERED: LISI10TA22 PO (07:39)
[2025-06-29] MEDS: MORPHINE 2 MG/ML 1 ML VIAL IV PRN (08:25)
[2025-06-29] MEDS ORDERED: ISOVUE-370 76% 100 ML VIAL As Ordered ONE (09:17)
[2025-06-29] MEDS: HumuLIN R (REGULAR) INSULIN (NovoLIN R) **100 U/ML** PER UNIT IV ONE ×2 (09:36→10:45)
[2025-06-29] MEDS ORDERED: HOME MED LIST COMPLETE! XX SCH (10:00)
[2025-06-29 10:14] LABS: MAGNESIUM LEVEL 1.7 MG/DL (1.8-2.4); PHOSPHORUS LEVEL 2.9 MG/DL (2.5-4.9)
[2025-06-29 10:17] LABS: CALCIUM LEVEL 7.8 MG/DL (8.5-10.1); CARBON DIOXIDE LEVEL 18 MMOL/L (20-31); CHLORIDE LEVEL 101 MMOL/L (98-107); CREATININE FOR GFR 0.51 MG/DL (0.55-1.30); GLOMERULAR FILTRATION RATE > 90.0 (>58); POTASSIUM SERUM 4.6 MMOL/L (3.5-5.1); SODIUM LEVEL 134 MMOL/L (136-145)
[2025-06-29] MEDS: MAG SULF 1GM/100ML (MAG RUN) 1 GM in IV 1 EA IV ONE (10:44)
[2025-06-29] MEDS: MORPHINE 4 MG/ML 1 ML VIAL IV ONE (11:51)
[2025-06-29] MEDS: ONDANSETRON 4MG/2ML VIAL IV ONE (11:51)
[2025-06-29] MEDS: SODIUM BICARBONATE 150 MEQ in STERILE WATER LITER BAG 1,000 ML IV SCH (13:59)
[2025-06-29] MEDS ORDERED: MOM 30 ML SUSPENSION UDC PO PRN (14:20)
[2025-06-29] MEDS ORDERED: MAALOX 30 ML SUSP *UDC PO PRN (14:20)
[2025-06-29] MEDS ORDERED: ACETAMINOPHEN 325 MG TAB PO PRN (14:20)
[2025-06-29] MEDS ORDERED: DEXTROSE 50% 50 ML SYRINGE IV PRN (14:45)
[2025-06-29] MEDS ORDERED: ONDANSETRON 4MG/2ML VIAL IV PRN (14:45)
[2025-06-29] MEDS ORDERED: GLUCAGON INJ 1 MG VIAL SC PRN (14:45)
[2025-06-29] MEDS ORDERED: GLUCOSE 4 GM CHEW PO PRN (14:45)
[2025-06-29] MEDS: KETOROLAC 30 MG/ML 1 ML VIAL IV PRN (15:11)
[2025-06-29 15:23] VITALS: BP 144/81; TEMP 100.7; O2SAT 98
[2025-06-29] MEDS: INSULIN LISPRO (NovoLOG) PER UNIT SC SCH ×2 (16:43→20:18)
[2025-06-29] MEDS: ACETAMINOPHEN 500 MG TAB PO SCH (16:44)
[2025-06-29] MEDS: LanTUS (INSULIN GLARGINE INJ) 1 UNITS/0.01 ML SC SCH (16:44)
[2025-06-29] MEDS: LR 1,000 ML IV ONE (16:45)
[2025-06-29 17:40] VITALS: BP 127/92; TEMP 98.7; O2SAT 99
[2025-06-29 19:05] LABS: CALCIUM LEVEL 7.8 MG/DL (8.5-10.1); CARBON DIOXIDE LEVEL 17 MMOL/L (20-31); CHLORIDE LEVEL 100 MMOL/L (98-107); CREATININE FOR GFR 0.63 MG/DL (0.55-1.30); GLOMERULAR FILTRATION RATE > 90.0 (>58); POTASSIUM SERUM 3.9 MMOL/L (3.5-5.1); SODIUM LEVEL 135 MMOL/L (136-145)
[2025-06-29 20:22] VITALS: BP 99/54; TEMP 98.2; O2SAT 99
[2025-06-29] MEDS: PANTOPRAZOLE 40MG VIAL IV SCH (20:30)
[2025-06-30 00:29] VITALS: BP 120/67; TEMP 99; O2SAT 100
[2025-06-30 05:10] VITALS: BP 113/56; TEMP 98.6; O2SAT 99
[2025-06-30 07:32] LABS: PLATELET COUNT, AUTOMATED 428 10^3/uL (150-450)
[2025-06-30 07:46] LABS: IRON (FE) 209 UG/DL (50-170)
[2025-06-30 07:47] LABS: PERCENT SATURATION 56.8 % (13.2-45.0)
[2025-06-30 07:51] LABS: ALT/SGPT 10 U/L (7.0-40); AST/SGOT 10 U/L (<34); CALCIUM LEVEL 8.0 MG/DL (8.5-10.1); CARBON DIOXIDE LEVEL 24 MMOL/L (20-31); CHLORIDE LEVEL 99 MMOL/L (98-107); CREATININE FOR GFR 0.50 MG/DL (0.55-1.30); GLOMERULAR FILTRATION RATE > 90.0 (>58); MAGNESIUM LEVEL 2.0 MG/DL (1.8-2.4); PHOSPHORUS LEVEL 2.1 MG/DL (2.5-4.9); POTASSIUM SERUM 3.9 MMOL/L (3.5-5.1); SODIUM LEVEL 134 MMOL/L (136-145)
[2025-06-30] MEDS: ENOXAPARIN 40 MG/0.4 ML SYRINGE (J1650 PER 10MG) SC SCH (07:52)
[2025-06-30 10:00] VITALS: BP 121/62; TEMP 98.8; O2SAT 98
[2025-06-30] MEDS ORDERED: PANT40TA29 PO (13:06)
[2025-07-01 12:15] LABS: VITAMIN B12 LEVEL 228 PG/ML (211-911)
== END 2025-06-30 14:10 | disposition home or self-care (01) ==
LOC: M ED 05:06 → EDBD 05:06 → M ED INP 05:07 → M MS5PR 15:15
PROVIDERS: ADMIT Student in an Organized Health Care Education/Training Program; ATTEND Student in an Organized Health Care Education/Training Program
DX: R11.16 Cannabis hyperemesis syndrome (principal); E13.43 Other specified diabetes mellitus with diabetic autonomic (poly)neuropathy; E13.65 Other specified diabetes mellitus with hyperglycemia; K31.84 Gastroparesis; F32.1 Major depressive disorder, single episode, moderate; F12.10 Cannabis abuse, uncomplicated; N20.0 Calculus of kidney; D72.829 Elevated white blood cell count, unspecified; K21.9 Gastro-esophageal reflux disease without esophagitis; M54.50 Low back pain, unspecified; E28.2 Polycystic ovarian syndrome; G43.909 Migraine, unspecified, not intractable, without status migrainosus; E87.3 Alkalosis; Z79.899 Other long term (current) drug therapy; Z79.4 Long term (current) use of insulin
CPT/HCPCS: 36415; 71275; 74176; 74177; 80048; 80053; 80076; 80307; 81001; 82010; 82150; 82607; 82728; 82746; 82803; 83550; 83605; 83690; 83735; 84100; 84145; 84703; 85025; 85027; 93041; 96361; 96374; 96375; 96376; 99285; J1630; J1815; J1885; J2060; J2405; J2470; J2550; J3475; Q9967